=== PATIENT | female | born 1945 | race Caucasian/White ===

== ENCOUNTER → 2016-09-11 | Outpatient (CLI) | payer OTHER ==
[2016-09-11 14:56] LABS: INR 1.7 (0.9-1.1); PROTHROMBIN TIME (PATIENT) 18.1 SECONDS (9.0-12.0)
[2016-09-11 15:44] LABS: BLOOD UREA NITROGEN 23 mg/dl (7-18); BUN/CREATININE RATIO 25.1 (10-20); CALCIUM 9.4 mg/dl (8.5-10.1); CARBON DIOXIDE 26 mmol/L (21-32); CHLORIDE 110 mmol/L (98-107); GLUCOSE 120 mg/dl (70-99); POTASSIUM 4.4 mmol/L (3.5-5.1); SODIUM 143 mmol/L (136-145)
== END | disposition home or self-care (01) ==
LOC: C.LAB1850 12:42
PROVIDERS: ATTEND Nurse Practitioner Adult Health
DX: G47.62 Sleep related leg cramps (principal); I48.91 Unspecified atrial fibrillation

== ENCOUNTER → 2016-09-24 | Outpatient (CLI) | payer OTHER ==
[~2016-09-24] MED LIST: CETI10TA84 PO; CLR10 PO; DILT-115 PO; DILTIAZEM HCL PO; FURO-85 PO; Humalog; LEVO175T3 PO; LOSA50TA6 PO; LVMI; METF1TAB53 PO; METO25TA56 PO; POTA10CA28 PO; PRAV20TA PO; WARF2TAB8 PO
--- NOTE | 2016-09-24 11:51 | DIAGNOSTIC IMAGING REPORT ---
RENAL ULTRASOUND CLINICAL HISTORY: 71-year-old female with history of hypertension. COMPARISON: None. FINDINGS: Right kidney: Normal in echogenicity and size measuring 13.8 cm. No hydronephrosis. Left kidney: Normal in echogenicity and size measuring 13.4 cm. No hydronephrosis. Bladder: No bladder wall thickening. The bilateral ureteral jets were not identified. IMPRESSION: Normal renal ultrasound. No evidence of obstruction. Electronically signed by: Ron Fowler 09/24/2016 11:49 AM Dictated Date/Time: 09/24/2016 11:48 AM
== END | disposition home or self-care (01) ==
LOC: C.ULTR 10:32
PROVIDERS: ATTEND Internal Medicine Nephrology
DX: I10 Essential (primary) hypertension (principal)

== ENCOUNTER → 2016-09-28 | Outpatient (CLI) | payer OTHER ==
[2016-09-28 08:30] LABS: PATIENT HEIGHT 167.6 cm
[2016-09-28 09:30] LABS: BASO % 0.2 %; BASO ABS # 0.02 K/uL (0-0.2); COMPLETE YES; EOS % 1.3 %; HEMATOCRIT 36.4 % (37-47); IG% 0.3 %; LYMPH % 14.2 %; LYMPH ABS # 1.41 K/uL (1.2-3.4); MEAN CELL VOLUME 85.8 fL (80-100); MEAN CORPUSCULAR HEMOGLOBIN 26.7 pg (25-34); MEAN PLATELET VOLUME 10.4 fL (7.4-10.4); MONO % 7.1 %; NEUT % 76.9 %; PLATELET COUNT 195 K/uL (130-400); RED BLOOD COUNT 4.24 M/uL (4.2-5.4); WHITE BLOOD COUNT 9.96 K/uL (4.8-10.8)
[2016-09-28 09:39] LABS: URINE APPEARANCE CLEAR (CLEAR); URINE BILIRUBIN NEG (NEG); URINE COLOR YELLOW; URINE EPITHELIAL CELL AUTO >30 /lpf (0-5); URINE NITRITE NEG (NEG); URINE PH 5.5 (4.5-7.5); URINE SPECIFIC GRAVITY 1.016 (1.000-1.030); UROBILINOGEN NEG (NEG)
[2016-09-28 09:44] LABS: MANUAL MICROSCOPIC REQUIRED? NO; REVIEW REQ? YES
[2016-09-28 09:50] LABS: BUN/CREATININE RATIO 29.2 (10-20); CALCIUM 8.9 mg/dl (8.5-10.1); CREATININE 0.91 mg/dl (0.60-1.20); MAGNESIUM 1.9 mg/dl (1.8-2.4); POTASSIUM 4.3 mmol/L (3.5-5.1)
[2016-09-28 09:58] LABS: ALB/GLOB RATIO 0.9 (0.9-2); CHOLESTEROL/HDL RATIO 2.7; THYROID STIMULATING HORMONE 1.1 uIu/ml (0.300-4.500); URIC ACID 8.4 mg/dl (2.6-7.2)
[2016-09-28 10:05] LABS: URINE TOTAL PROTEIN 6.1 mg/dl (0-11.9)
[2016-09-28 10:27] LABS: URINE PROTIEN/CREAT RATIO 0.1 (0-0.2); URINE TOTAL PROTEIN 9.1 mg/dl (0-11.9)
[2016-09-28 10:54] LABS: CREATININE 0.91 mg/dl (0.6-1.2); URINE TOTAL PROTEIN CALC 125.1 mg/24 hr (0-149.1)
--- NOTE | 2016-10-04 13:17 | CODING QUERY MEDICAL NECESSITY ---
SUPPORTING DIAGNOSIS NEEDED A supporting diagnosis is required for the test/procedure performed on this patient in order for us to be reimbursed by the patient's insurance. Please provide a supporting diagnosis for the following test/procedure listed below next to the test name along with your signature. *If there is no additional diagnosis for this patient that would support the following test/procedure please document that below next to the test/procedure. Test(s)/Procedure(s) that require a supporting diagnosis: * VITAMIN D, 25-HYDROXY DIAGNOSIS: Provider Signature: Date: Thank you Diana Delgado [employer] Once completed, please kindly fax back to [phone] For questions please call [phone]
== END | disposition home or self-care (01) ==
LOC: C.LAB1850 08:16
PROVIDERS: ATTEND Internal Medicine Cardiovascular Disease
DX: I11.0 Hypertensive heart disease with heart failure (principal); I35.0 Nonrheumatic aortic (valve) stenosis; R06.09 Other forms of dyspnea; I50.32 Chronic diastolic (congestive) heart failure; E55.9 Vitamin D deficiency, unspecified; I48.91 Unspecified atrial fibrillation

== ENCOUNTER → 2016-10-15 | Outpatient (CLI) | payer OTHER ==
[2016-10-15 12:32] LABS: ESTIMATED AVERAGE GLUCOSE 189 mg/dl; HA1C FLAG Normal (Normal)
== END | disposition home or self-care (01) ==
LOC: C.LAB1850 11:27
PROVIDERS: ATTEND Nurse Practitioner Adult Health
DX: E11.9 Type 2 diabetes mellitus without complications (principal); I48.91 Unspecified atrial fibrillation

== ENCOUNTER → 2016-10-16 | Outpatient (CLI) | payer OTHER ==
--- NOTE | 2016-10-16 13:09 | MAMMOGRAPHY REPORT ---
BILATERAL DIGITAL SCREENING MAMMOGRAM WITH CAD: 10/16/2016 CLINICAL HISTORY: Routine screening. TECHNIQUE: Bilateral CC, MLO, repeat right MLO and bilateral CC views with nipples in profile were o btained. Current study was also evaluated with a Computer Aided Detection (CAD) system. COMPARISON: Comparison is made to exams dated: 06/10/2015 mammogram, 04/16/2014 mammogram, 04/06/2013 m ammogram, and 05/03/2011 mammogram. BREAST COMPOSITION: There are scattered areas of fibroglandular density in both breasts. FINDINGS: There are stable circumscribed masses in both breasts. Benign-appearing coarse calcificat ions bilaterally. A metallic insurance adjuster projects over the left 9:00 breast. No suspicious spic ulated or irregular mass, architectural distortion or cluster of new, suspicious microcalcifications is seen. IMPRESSION: ACR BI-RADS CATEGORY 1: NEGATIVE There is no mammographic evidence of malignancy. A 1 year screening mammogram is recommended. The pa tient will receive written notification of the results. Approximately 10% of breast cancers are not detected with mammography. A negative mammographic report should not delay biopsy if a clinically suggestive mass is present. Bhumika Velazquez M.D. ay/:10/16/2016 12:10:29 Soil Science Professor: Mayra SAMS(Zhao)(Jenni), [facility] letter sent: Normal 1/2 BI-RADS Code: ACR BI-RADS Category 1: Negative
== END | disposition home or self-care (01) ==
LOC: C.MAMM 11:02
PROVIDERS: ATTEND Nurse Practitioner Adult Health
DX: Z12.31 Encounter for screening mammogram for malignant neoplasm of breast (principal)

== ENCOUNTER → 2016-10-29 | Outpatient (CLI) | payer OTHER ==
[2016-10-29 12:28] LABS: INR 1.5 (0.9-1.1)
[2016-10-29 12:39] LABS: MEAN CELL VOLUME 85.1 fL (80-100); MEAN CORPUSCULAR HEMOGLOBIN 26.9 pg (25-34); MEAN CORPUSCULAR HGB CONC 31.6 g/dl (32-36); MEAN PLATELET VOLUME 10.4 fL (7.4-10.4); PLATELET COUNT 206 K/uL (130-400); RED BLOOD COUNT 4.35 M/uL (4.2-5.4); WHITE BLOOD COUNT 6.95 K/uL (4.8-10.8)
[2016-10-29 12:58] LABS: BLOOD UREA NITROGEN 25 mg/dl (7-18); BUN/CREATININE RATIO 25.9 (10-20); CALCIUM 9.4 mg/dl (8.5-10.1); CARBON DIOXIDE 28 mmol/L (21-32); CHLORIDE 107 mmol/L (98-107); CREATININE 0.97 mg/dl (0.60-1.20); GLUCOSE 173 mg/dl (70-99); POTASSIUM 4.1 mmol/L (3.5-5.1); SODIUM 142 mmol/L (136-145)
== END | disposition home or self-care (01) ==
LOC: C.LAB1850 11:22
PROVIDERS: ATTEND Internal Medicine Cardiovascular Disease
DX: I10 Essential (primary) hypertension (principal); I35.0 Nonrheumatic aortic (valve) stenosis; I48.92 Unspecified atrial flutter; R06.09 Other forms of dyspnea; I50.32 Chronic diastolic (congestive) heart failure; I34.0 Nonrheumatic mitral (valve) insufficiency

== ENCOUNTER → 2016-10-30 | Day surgery (SDC) | payer OTHER ==
[~2016-10-30] VITALS: Ht 167.6 cm; Wt 125.0 kg
[~2016-10-30] MED LIST changes: +ACETAMINOPHEN 325 MG TAB PO PRN; +FENTANYL CITRATE INJ 50 MCG/1 ML 2 ML VIAL ONE; +HEPARIN SOD (PORCINE) 1000 UNIT/ML 10 ML VIAL ONE; +MIDAZOLAM HCL 1 MG/ML 2ML VIAL ONE; +NITROGLYCERIN/D5W 100MCG/ML 20ML SYR ONE; +NiCARDipine HCL INJ 2.5 MG/ML 10 ML AMP ONE; +ONDANSETRON INJ 2 MG/ML 2 ML VIAL IV PRN; +SODIUM CHLORIDE 0.9% 1000ML 1,000 ML IV SCH; +SODIUM CHLORIDE 0.9% 1000ML 250 ML IV PRN
[2016-10-30 06:55] VITALS: BP 159/84; PULSE 110; TEMP 36.5; O2SAT 95; Ht 167.6 cm; Wt 125.0 kg
--- NOTE | 2016-10-30 07:32 | History & Physical Bridge Note ---
H&P Re-Evaluation Bridge Note: I have examined the patient, reviewed the History & Physical and in the interval since the performance of the History & Physical I have noted the following changes of clinical significance: No changes noted
--- NOTE | 2016-10-30 07:33 | Procedure Note ---
Pre-Mod Sedation Assessment General Date of Moderate Sedation: Oct 30, 2016. Vital Signs: Vital Signs Past 12 Hours Date Time Temp Pulse Resp B/P (MAP) Pulse Ox O2 Delivery O2 Flow Rate FiO2 10/30/16 06:55 36.5 110 20 159/84 95 Room Air Review Cardiovascular: regular rate, rhythm, + systolic murmur Abdomen: soft Lungs: lungs clear Pre-Sedation Airway Assessment Oral Cavity: WNL Short Thick Neck: No Hx of Sleep Apnea: No Smoking Status: Never Smoker Procedure Planning Contraindications-for Mod Sed: None Yes Notes The planned sedation has been discussed with the patient and consent obtained. I have identified the patient, determined the appropriateness of sedation and have assessed the patient immediately prior to the procedure. All medicine(s) and interventions are by my order.
[2016-10-30 07:45] VITALS: BP 154/90; PULSE 75; O2SAT 95
[2016-10-30 07:50] VITALS: BP 126/66; PULSE 75; O2SAT 95
[2016-10-30 07:55] VITALS: BP 120/66; PULSE 82; O2SAT 95
[2016-10-30 08:00] VITALS: BP 112/56; PULSE 81; O2SAT 95
--- NOTE | 2016-10-30 08:16 | Procedure Note ---
Post-Mod Sedation Assessment General Date of Moderate Sedation Oct 30, 2016. Vital Signs: Vital Signs Past 12 Hours Date Time Temp Pulse Resp B/P (MAP) Pulse Ox O2 Delivery O2 Flow Rate FiO2 10/30/16 08:00 81 16 112/56 95 Nasal Cannula 3 10/30/16 07:55 82 16 120/66 95 Nasal Cannula 3 10/30/16 07:50 75 16 126/66 95 Nasal Cannula 3 10/30/16 07:45 75 16 154/90 95 Room Air 10/30/16 06:55 36.5 110 20 159/84 95 Room Air Review - Discharge Criteria Vital Signs Stable: Yes Alert/Oriented/Conversant: Yes Returned to Baseline Mental St: Yes Nausea Absent/Minimal: Yes Pain/Discomfort/Absent/Minimal: Yes Normal/Baseline Respirations: Yes Active Bleeding?: No
--- NOTE | 2016-10-30 08:20 | Cardiology Procedure Brief Nt ---
Preliminary Cardiology Note Procedure Date Oct 30, 2016. Pre-Procedure Diagnosis Aortic stenosis Post-Procedure Diagnosis Aortic stenosis Procedure(s) Performed ASHLEY Grades 9 12 Tutor Paul Lipstick Molder(s) Cristal Estimated Blood Loss none Preliminary Findings Prelim report: Normal LV systolic function. Aortic valve appears severely stenotic (unable to obtain velocities). Mild to moderate MR. Recommendations Cardiac cath to follow. Specimens none Complication(s) None Disposition awaiting cath
--- NOTE | 2016-10-30 09:36 | Procedure Note ---
Pre-Mod Sedation Assessment General Date of Moderate Sedation: Oct 30, 2016. Vital Signs: Vital Signs Past 12 Hours Date Time Temp Pulse Resp B/P (MAP) Pulse Ox O2 Delivery O2 Flow Rate FiO2 10/30/16 08:45 73 16 100/50 (67) 93 Room Air 10/30/16 08:30 81 16 100/55 (70) 93 Room Air 10/30/16 08:15 81 16 102/55 (71) 93 Room Air 10/30/16 08:00 80 16 100/56 (71) 93 Room Air 10/30/16 08:00 81 16 112/56 95 Nasal Cannula 3 10/30/16 07:55 82 16 120/66 95 Nasal Cannula 3 10/30/16 07:50 75 16 126/66 95 Nasal Cannula 3 10/30/16 07:45 75 16 154/90 95 Room Air 10/30/16 06:55 36.5 110 20 159/84 95 Room Air Review Cardiovascular: regular rate, rhythm, + systolic murmur Abdomen: soft Lungs: lungs clear Pre-Sedation Airway Assessment Oral Cavity: WNL Short Thick Neck: No Hx of Sleep Apnea: No Smoking Status: Never Smoker Procedure Planning Contraindications-for Mod Sed: None Yes Notes The planned sedation has been discussed with the patient and consent obtained. I have identified the patient, determined the appropriateness of sedation and have assessed the patient immediately prior to the procedure. All medicine(s) and interventions are by my order.
[2016-10-30 10:17] LABS: ISTAT ARTERIAL BLOOD GAS HCO3 23 meq/L (19-24); ISTAT ARTERIAL BLOOD GAS PCO2 39 mmHg (35-46); ISTAT ARTERIAL BLOOD GAS PO2 56 mmHg (80-95); ISTAT ARTERIAL BLOOD GAS pH 7.38 (7.35-7.45); ISTAT CARBON DIOXIDE 24 mEq/l (24-31)
[2016-10-30 10:17] LABS: ISTAT ARTERIAL BLOOD GAS HCO3 25 meq/L (19-24); ISTAT ARTERIAL BLOOD GAS PCO2 43 mmHg (35-46); ISTAT ARTERIAL BLOOD GAS PO2 33 mmHg (80-95); ISTAT ARTERIAL BLOOD GAS pH 7.37 (7.35-7.45); ISTAT CARBON DIOXIDE 26 mEq/l (24-31)
[2016-10-30 10:17] LABS: ISTAT ARTERIAL BLOOD GAS HCO3 25 meq/L (19-24); ISTAT ARTERIAL BLOOD GAS PCO2 43 mmHg (35-46); ISTAT ARTERIAL BLOOD GAS PO2 35 mmHg (80-95); ISTAT ARTERIAL BLOOD GAS pH 7.37 (7.35-7.45); ISTAT CARBON DIOXIDE 26 mEq/l (24-31)
--- NOTE | 2016-10-30 10:37 | Procedure Note ---
Post-Mod Sedation Assessment General Date of Moderate Sedation Oct 30, 2016. Vital Signs: Vital Signs Past 12 Hours Date Time Temp Pulse Resp B/P (MAP) Pulse Ox O2 Delivery O2 Flow Rate FiO2 10/30/16 08:45 73 16 100/50 (67) 93 Room Air 10/30/16 08:30 81 16 100/55 (70) 93 Room Air 10/30/16 08:15 81 16 102/55 (71) 93 Room Air 10/30/16 08:00 80 16 100/56 (71) 93 Room Air 10/30/16 08:00 81 16 112/56 95 Nasal Cannula 3 10/30/16 07:55 82 16 120/66 95 Nasal Cannula 3 10/30/16 07:50 75 16 126/66 95 Nasal Cannula 3 10/30/16 07:45 75 16 154/90 95 Room Air 10/30/16 06:55 36.5 110 20 159/84 95 Room Air Review - Discharge Criteria Vital Signs Stable: Yes Alert/Oriented/Conversant: Yes Returned to Baseline Mental St: Yes Nausea Absent/Minimal: Yes Pain/Discomfort/Absent/Minimal: Yes Normal/Baseline Respirations: Yes Active Bleeding?: No
--- NOTE | 2016-10-30 11:17 | Cardiac Catheterization ---
Procedure Note Procedure Date Oct 30, 2016. Pre-Procedure Diagnosis Valvular Disease AUC Score 7 Post-Procedure Diagnosis Moderate CAD, Elevated Intracardiac Pressures Procedure(s) Performed Coronary Angiography, Right Heart Cath Block Feeder Dr. Miller User Experience Team Lead(s) John Estimated Blood Loss < 25 ml Medication(s) Fentanyl, Heparin, Nicardipine, Versed, Lidocaine 1% Summary of Findings Coronary angiography: 1. Left main coronary artery: The LMCA is short but no significant CAD noted angiographically. 2. Left anterior descending: The LAD is large caliber and extends to the apex. Proximal LAD 50-60%. No other significant CAD within the LAD. Small D1, D2, and D3 vessels without significant CAD noted. 3. Circumflex: The circumflex is codominant. Proximal circumflex 20%. Large OM1, OM2 with lateral branches, circumflex PDA, and circumflex PL without significant CAD angiographically. 4. Right coronary artery: The RCA is large and codominant. Luminal irregularities in the proximal, mid, and distal segments. No significant CAD within the RCA or the RCA PDA. Right heart catheterization: 1. Pulmonary capillary wedge pressure was elevated. V-wave 45 with a mean pressure of 30 mmHg. 2. Moderate pulmonary hypertension. 55/28 with a mean pressure of 37 mmHg. 3. RV pressure 57/12 with RV EDP of 20 mmHg. 4. Elevated right atrial pressure. A-wave 22; V-wave 23; mean pressure 18mmHg. 5. Cardiac output via thermodilution was 7 L/min with a cardiac index of 3 L/min /m2. 6. PVR 1 Wood units. Procedural notes: 1. There was no attempt to cross the aortic valve due to documented severe aortic stenosis. 2. Selective coronary angiography of the RCA was difficult due to significant movement of the diagnostic catheters from the aortic jet. Images were performed with AR2 5 [place] catheter. Sedation start time 9:40 a.m. Sedation end time 10:35 a.m. Impression: 1. Moderate CAD involving the proximal LAD. 2. Documented severe aortic stenosis by echocardiogram. 3. Moderate pulmonary hypertension, likely due to elevated left-sided filling pressures. 4. Elevated filling pressures. 5. Normal cardiac output via thermodilution. Plan: 1. Continue diuretics. 2. Referral for aortic valve replacement evaluation. 3. Continue medical therapy for CAD. Hemodynamics Rest Ao: 103/58 Final Ao: 117/66 LV: n/a Recommendations valve replacement Specimens None Radiation Exposure (mGy) 4414 mGy. Fluoro time 19 min. Contrast (mls) 140 ml Procedural Complication(s) None Disposition Bsa Officer Holding/Recovery ACC Data Cardiac Status Clinical evaluation leading to the procedure CAD Presntation: No Sxs, no angina Anginal Classification: No symptoms Heart Failure: NYHA Class: CCS III Cardiogenic Shock w/in 24Hrs: No Cardiac Arrest w/in 24Hrs: No Imaging studies past 6 months: Yes (echo) Stress studies past 6 months: No Standard Exercise Stress Test: No Stress Echocardiogram: No Stress Testing w/SPECT MPI: No Cardiac CTA: No Coronary Anatomy Dominant: Co-dominant Left Main (% Stenosis): Normal LAD (% Stenosis): Proximal (60%) D1 (% Stenosis): Normal D2 (% Stenosis): Normal D3 (% Stenosis): Normal Circumflex (% Stenosis): Proximal (20%) OM1 (% Stenosis): Normal OM2 (% Stenosis): Normal L PL1 (% Stenosis): Normal L PDA (% Stenosis): Normal RCA (% Stenosis): Normal R PDA (% Stenosis): Normal Left Ventricular Angiography EF (%): n/a Diagnostic Physician's Name: Joel Miller MD Status: Elective Closure Device Percutaneous Entry Location: Radial Closure Device: Radial Band Recommendations: valve replacement
--- NOTE | 2016-10-30 12:59 | Discharge Instructions ---
Discharge Instructions Date of Service Oct 30, 2016. Visit Reason for Visit: Aortic Stenosis Discharge Discharge Diagnosis / Problem: Non-obstructive coronary artery disease. Aortic stenosis. Discharge Goals Goal(s): Diagnostic testing Medications Restart Stopped Medication(s): Resume Metformin in 1 day. Resume coumadin today. Activity Recommendations Activity Limitations: per Instructions/Follow-up section Anesthesia . Post Anesthesia Instructions: If you have had General Anesthesia or IV Sedation: * Do not drive today. * Resume driving when surgeon permits. * Do not make important decisions or sign legal documents today. * Call surgeon for: 1. Temperature elevations greater than 101 degrees F. 2. Uncontrollable pain. 3. Excessive bleeding. 4. Persistent nausea and vomiting. 5. Medication intolerance (nausea, vomiting or rash). * For nausea and vomiting use only clear liquids such as: tea, soda, bouillon until nausea subsides, then gradually increase diet as tolerated. * If you have any concerns or questions, call your surgeon's office. If physician is unavailable and it is an emergency, call 911 or go to the nearest emergency room. . Instructions / Follow-Up Instructions / Follow-Up Follow up: 1. CT surgery appointment at [facility] with Dr. Aldridge ([phone]). Take echo and cath images with you. 2. Follow up with Dr. Miller after your heart procedure. 3. Follow up later this week for heart failure evaluation with labs to be done or Saturday morning. Diet Recommendations Recommended Home Diet: resume previous diet, low sodium Pending Studies Studies pending at discharge: yes List of pending studies: 1. PFTs 2. Carotid Duplex Medical Emergencies . Who to Call and When: Medical Emergencies: If at any time you feel your situation is an emergency, please call 911 immediately. . Non-Emergent Contact Non-Emergency issues call your: Client Engagement Specialist . . "Provider Documentation" section prepared by Joel Stevens. .
[2016-10-30 13:00] VITALS: BP 102/66; PULSE 76; O2SAT 94
--- NOTE | 2016-10-30 18:46 | TEE ---
*NOTICE TO RECEIVING DEMOCRAT AGENCY This information is strictly Confidential and protected under [place] law. [place] law prohibits you from making any further disclosure of this information unless further disclosure is expressly permitted by the written consent of the person to whom it pertains or is authorized by law. A general authorization for the release of medical or other information is not sufficient for this purpose. Hospital accepts no responsibility if the information is made available to any other person, INCLUDING THE PATIENT. Interpretation Summary * Name: OTILIO SUNSHINE Study Date: 10/30/2016 07:25 AM BP: 154/90 mmHg * Patient Location: Cardiac Chief Growth Officer Holding area HR: 80 * : 1945 (M/d/yyyy) Gender: Female Height: 56 in * Age: 71 yrs Ethnicity: [place] Weight: 276 lb * Ordering Physician: Joel Miller MD * Referring Physician: Joel Miller MD * Performed By: Alexandra Bee RCS * * Reason For Study: Aortic Stenosis * BSA: 2.0 m2 * -- Conclusions -- * ASHLEY: * 1. Normal left ventricular size with hyperdynamic systolic function. EF 65-70%. No regional wall motion abnormalities. Severe concentric left ventricular hypertrophy. * 2. The left atrium is moderately dilated. * 3. The right atrium is mildly dilated. * 4. Sclerotic aortic valve with severely reduced excursion during systole. (Velocities were unable to be obtained.) * 5. There is moderate mitral regurgitation. * 6. There is mild to moderate tricuspid regurgitation. * 7. Moderate pulmonary hypertension. Estimated right ventricular systolic pressure 56 mmHg. * 8. Patient tolerated procedure well without known complication. Procedure Details * ASHLEY Probe #1 utilized for procedure. * The study was performed in Cardiac Catheterization Lab. * Time out was conducted by the physician, nurse, and dialysis tech with positive identification of patient and procedure. * Informed consent for Transesophageal Echocardiogram was obtained prior to the procedure. * An intravenous line was placed. A topical anesthetic agent was used for oropharangeal anesthesia. A bite block was inserted. * The patient's vital signs, including blood pressure, heart rate, pulse oximetry and cardiac rhythm were monitored throughout the procedure . * Fentanyl 50 mcg was administered for procedural sedation. * Midazolam 4 mg administered for sedation. * Timeout time - 0740 Probe in time/sedation start time: 0745 Sedation and time: 0800 * The transesophageal probe was passed without difficulty. * The usual views were obtained; basal, mid-esophageal, transgastric and aortic views. * The patient tolerated the procedure well without evidence of orophangeal or esophageal trauma. * A 2D transesophageal echocardiogram was performed. * A 2D transesophageal echocardiogram with color flow Doppler was performed. * A 2D transesophageal echocardiogram with Doppler and color flow Doppler was performed. Left Ventricle * Normal left ventricular size with hyperdynamic systolic function. EF 65-70%. No regional wall motion abnormalities. Severe concentric left ventricular hypertrophy. Right Ventricle * The right ventricle is normal in size and function. Atria * The left atrium is moderately dilated. * No thrombus is detected in the left atrial appendage. * The right atrium is mildly dilated. * No ASD or PFO noted via color Doppler or 2-D imaging. Mitral Valve * There is mild mitral annular calcification. * Blunted pulmonary venous flow pattern. * There is no mitral valve stenosis. * There is moderate mitral regurgitation. Tricuspid Valve * The tricuspid valve is not well visualized, but is grossly normal. * There is no tricuspid stenosis. * There is mild to moderate tricuspid regurgitation. Aortic Valve * Sclerotic aortic valve with severely reduced excursion during systole. (Velocities were unable to be obtained.) * Trace aortic regurgitation. Pulmonic Valve * The pulmonary valve is inadequately visualized, but the Doppler data is adequate for interpretation. * There is no significant pulmonary regurgitation. Great Vessels * The aortic root is normal size. * Mild atherosclerotic disease noted within thoracic descending aorta. * IVC normal in size. Pericardium * There is no pericardial effusion. MMode 2D Measurements and Calculations Ao root diam 3.1 cm Ao root area 7.5 cm\S\2 LVOT diam 2.0 cm LVOT area 3.2 cm\S\2 Doppler Measurements and Calculations MV E max rafaela 165.2 cm/sec MV dec time 0.20 sec TR max rafaela 365.3 cm/sec RVSP(TR) 56.4 mmHg RAP systole 3.0 mmHg
== END | disposition home or self-care (01) ==
LOC: C.CATH 06:36 → EDSTATUS 07:00
PROVIDERS: ATTEND Internal Medicine Cardiovascular Disease
DX: I48.91 Unspecified atrial fibrillation (principal); I25.10 Atherosclerotic heart disease of native coronary artery without angina pectoris; I35.0 Nonrheumatic aortic (valve) stenosis; I27.2 Other secondary pulmonary hypertension; I48.92 Unspecified atrial flutter; R06.09 Other forms of dyspnea; I34.0 Nonrheumatic mitral (valve) insufficiency; I10 Essential (primary) hypertension; I50.32 Chronic diastolic (congestive) heart failure; E78.5 Hyperlipidemia, unspecified; Z87.442 Personal history of urinary calculi; E78.00 Pure hypercholesterolemia, unspecified; E03.9 Hypothyroidism, unspecified; Z85.820 Personal history of malignant melanoma of skin; E66.01 Morbid (severe) obesity due to excess calories; E11.9 Type 2 diabetes mellitus without complications; Z90.710 Acquired absence of both cervix and uterus; Z90.89 Acquired absence of other organs; Z82.49 Family history of ischemic heart disease and other diseases of the circulatory system; Z83.3 Family history of diabetes mellitus; Z84.1 Family history of disorders of kidney and ureter; Z80.8 Family history of malignant neoplasm of other organs or systems; Z79.4 Long term (current) use of insulin; Z79.84 Long term (current) use of oral hypoglycemic drugs

== ENCOUNTER → 2016-11-02 | Outpatient (CLI) | payer OTHER ==
[~2016-11-02] MED LIST changes: -ACETAMINOPHEN 325 MG TAB PO PRN; -FENTANYL CITRATE INJ 50 MCG/1 ML 2 ML VIAL ONE; -HEPARIN SOD (PORCINE) 1000 UNIT/ML 10 ML VIAL ONE; -MIDAZOLAM HCL 1 MG/ML 2ML VIAL ONE; -NITROGLYCERIN/D5W 100MCG/ML 20ML SYR ONE; -NiCARDipine HCL INJ 2.5 MG/ML 10 ML AMP ONE; -ONDANSETRON INJ 2 MG/ML 2 ML VIAL IV PRN; -SODIUM CHLORIDE 0.9% 1000ML 1,000 ML IV SCH; -SODIUM CHLORIDE 0.9% 1000ML 250 ML IV PRN
--- NOTE | 2016-11-02 10:21 | DIAGNOSTIC IMAGING REPORT ---
CHEST 2 VIEWS ROUTINE CLINICAL HISTORY: I10 [id number] Aortic [id number] Atrial [id number] COMPARISON STUDY: No previous studies for comparison. FINDINGS: Mild cardia megaly. Mild prominence of pulmonary vasculature. Diaphragms are smooth. Lungs are clear. IMPRESSION: Mild cardia megaly. Mild prominence of pulmonary vasculature. The above report was generated using voice recognition software. It may contain grammatical, syntax or spelling errors. Electronically signed by: Damien Borja M.D. 11/02/2016 10:20 AM Dictated Date/Time: 11/02/2016 10:20 AM
[2016-11-02 11:21] LABS: BLOOD UREA NITROGEN 26 mg/dl (7-18); BUN/CREATININE RATIO 23.3 (10-20); CALCIUM 9.1 mg/dl (8.5-10.1); CARBON DIOXIDE 31 mmol/L (21-32); CHLORIDE 107 mmol/L (98-107); GLUCOSE 220 mg/dl (70-99); SODIUM 140 mmol/L (136-145)
== END | disposition home or self-care (01) ==
LOC: C.RAD1850 09:59
PROVIDERS: ATTEND Internal Medicine Cardiovascular Disease
DX: I34.0 Nonrheumatic mitral (valve) insufficiency (principal); I35.0 Nonrheumatic aortic (valve) stenosis; I48.92 Unspecified atrial flutter; I50.32 Chronic diastolic (congestive) heart failure; R06.09 Other forms of dyspnea; I11.0 Hypertensive heart disease with heart failure

== ENCOUNTER → 2017-02-01 | Outpatient (CLI) | payer OTHER ==
[2017-02-01 17:39] LABS: HEMATOCRIT 36.2 % (37-47); MEAN CELL VOLUME 84.2 fL (80-100); MEAN CORPUSCULAR HEMOGLOBIN 27.2 pg (25-34); MEAN CORPUSCULAR HGB CONC 32.3 g/dl (32-36); PLATELET COUNT 240 K/uL (130-400); WHITE BLOOD COUNT 8.61 K/uL (4.8-10.8)
[2017-02-01 17:59] LABS: ALT/SGPT 20 U/L (12-78); BLOOD UREA NITROGEN 24 mg/dl (7-18); BUN/CREATININE RATIO 23.1 (10-20); CALCIUM 9.4 mg/dl (8.5-10.1); CARBON DIOXIDE 27 mmol/L (21-32); CHLORIDE 101 mmol/L (98-107); CREATININE 1.02 mg/dl (0.60-1.20); GLUCOSE 136 mg/dl (70-99); POTASSIUM 3.6 mmol/L (3.5-5.1); SODIUM 138 mmol/L (136-145)
[2017-02-01 18:10] LABS: ALB/GLOB RATIO 0.8 (0.9-2); ALKALINE PHOSPHATASE 233 U/L (45-117); AST/SGOT 16 U/L (15-37); THYROID STIMULATING HORMONE 0.452 uIu/ml (0.300-4.500)
== END | disposition home or self-care (01) ==
LOC: C.LAB1850 17:09
PROVIDERS: ATTEND Internal Medicine Cardiovascular Disease
DX: N20.0 Calculus of kidney (principal); I11.0 Hypertensive heart disease with heart failure; I35.0 Nonrheumatic aortic (valve) stenosis; I27.20 Pulmonary hypertension, unspecified; N18.2 Chronic kidney disease, stage 2 (mild); I25.10 Atherosclerotic heart disease of native coronary artery without angina pectoris; I48.92 Unspecified atrial flutter; I50.32 Chronic diastolic (congestive) heart failure

== ENCOUNTER → 2017-02-14 | Outpatient (CLI) | payer OTHER ==
[2017-02-14 12:28] LABS: URINE APPEARANCE CLEAR (CLEAR); URINE BILIRUBIN NEG (NEG); URINE COLOR YELLOW; URINE NITRITE NEG (NEG); URINE SPECIFIC GRAVITY 1.014 (1.000-1.030); UROBILINOGEN NEG (NEG)
[2017-02-14 12:34] LABS: MANUAL MICROSCOPIC REQUIRED? NO; REVIEW REQ? NO
[2017-02-14 12:36] LABS: CREATININE, URINE 57.1 mg/dl; URINE PROTIEN/CREAT RATIO 0.1 (0-0.2); URINE TOTAL PROTEIN 5.6 mg/dl (0-11.9)
== END | disposition home or self-care (01) ==
LOC: C.LAB1850 10:24
PROVIDERS: ATTEND Internal Medicine Nephrology
DX: N20.0 Calculus of kidney (principal); I10 Essential (primary) hypertension; I35.0 Nonrheumatic aortic (valve) stenosis; I27.20 Pulmonary hypertension, unspecified; N18.2 Chronic kidney disease, stage 2 (mild)

== ENCOUNTER → 2017-03-26 | Outpatient (CLI) | payer OTHER ==
[~2017-03-26] MED LIST changes: +ACET-1256 PO; +ASPI81TA28 PO; -DILTIAZEM HCL PO; +ERGO500037 PO; -Humalog; +Humalog SQ; -LOSA50TA6 PO; -LVMI; +LVMI SQ
[2017-03-27 06:47] LABS: HEMOGLOBIN A1C 7.9 % (4.5-5.6)
== END | disposition home or self-care (01) ==
LOC: C.LAB1850 15:16
PROVIDERS: ATTEND Nurse Practitioner Adult Health
DX: E11.65 Type 2 diabetes mellitus with hyperglycemia (principal); Z79.4 Long term (current) use of insulin

== ENCOUNTER 2018-11-24 05:06 | Inpatient (IN) ==
--- NOTE | 2018-10-27 08:10 | Anesthesiology Consultation ---
Date of Service October 27, 2018 Assessment & Plan (1) Encounter for pre-operative examination: *PATIENT GOES BY "ARNIE"* Cardiology clearance (Bhumika Norman PA-C) 10/29 = She is currently stable and asymptomatic from a cardiovascular standpoint with no anginal symptoms occurring at >4 METS of activity. She appears euvolemic on examination today and well compensated from a CHF standpoint. Her bioprosthetic aortic valve is functioning well on examination. Her heart rate and blood pressure are well controlled. Given this information, the patient is at an acceptable risk to proceed with upcoming surgery without any additional cardiovascular testing or intervention. She may hold her warfarin for 5 days prior to surgery and resume once safe from a bleeding standpoint. CHECK BSG AM DOS CHECK PT/INR/PTT AM DOS Chart Review Chart Review: Acceptable Risk for Surgery and Patient seen in Pre Admission Testing Teaching & Discussion Instructed NPO after midnight before surgery, except medications with 15 cc of water. Medication instructions provided according to the PAT guidelines. History Surgery Operation Date: 11/24/18 07:00 Proposed Procedures p Laparoscopic Umbilical Hernia Repair - Keith Chapmna MD, FACS Height/Weight Height: 5 ft 6 in Weight: 124.2 kg Allergies Allergy/AdvReac Type Severity Reaction Status Date / Time Sulfa (Sulfonamide Allergy Severe ANAPHYLAXIS Verified 10/29/18 11:28 Antibiotics) Medications Home Medications Medication Instructions Recorded Confirmed Last Taken insulin U- 100 regular human 100 3 - 4 units SUBCUT DAILY #3 ml 08/22/18 10/29/18 Unknown unit/mL injection solution metoprolol tartrate 50 mg tablet 25 mg PO BID #180 tab 08/22/18 10/29/18 Unknown aspirin 81 mg tablet,delayed 81 mg PO QPM #0 10/19/18 10/29/18 Unknown release diltiazem 60 mg tablet 60 mg PO HS #0 10/19/18 10/29/18 Unknown diltiazem ER 240 mg capsule,24 240 mg PO QAM #0 cap 10/19/18 10/29/18 Unknown hr,extended release ergocalciferol (vitamin D2) 50,000 50,000 unit PO WK 28 Days #4 cap 10/19/18 10/29/18 Unknown unit capsule furosemide 20 mg tablet 40 mg PO BID 90 Days #360 tab 10/19/18 10/29/18 Unknown insulin NPH isophane U- 100 human 40 units SUBCUT QPM #1 ml 10/19/18 10/29/18 Unknown 100 unit/mL subcutaneous suspension levothyroxine 175 mcg tablet 175 mcg PO QAM 30 Days #30 tab 10/19/18 10/29/18 Unknown metformin ER 1,000 mg 1,000 mg PO BIDM #0 tab 10/19/18 10/29/18 Unknown tablet,extended release 24hr potassium citrate ER 10 mEq (1,080 1,080 mg PO BID #60 tab 10/19/18 10/29/18 Unknown mg) tablet,extended release pravastatin 80 mg tablet 80 mg PO HS 90 Days #90 tab 10/19/18 10/29/18 Unknown azelastine 1 sprays INTNAS DAILY PRN 10/22/18 10/29/18 Unknown cetirizine [Zyrtec] 10 mg PO QAM 10/22/18 10/29/18 Unknown warfarin 2 mg tablet 2 mg PO DAILY #90 tab 10/30/18 Unknown Past Medical History Medical History History of loop recorder Implanted AND REMOVED A-fib On Warfarin Atrial flutter Coronary artery disease S/P CABG x 1 with AVR 2016. Diabetic peripheral neuropathy DENIES ATAXIA History of sinusitis Hx of cyst of breast s/p excision Hx of malignant melanoma of skin s/p simple excision Hyperlipemia Hypertension Hypothyroidism Mitral valve regurgitation Seasonal allergies Type 2 diabetes mellitus Vitamin D deficiency Exercise / Class Metabolic Activity II 4-5 Yardwork/Stairs/Walk up hill (No CP/SOB with 10 steps, does grocery shopping, walks daily) Past Family History Family History Mother Family history of diabetes mellitus Grandmother (Maternal) Family history of diabetes mellitus Grandmother (Paternal) Family history of diabetes mellitus Aunt Family history of diabetes mellitus Uncle Family history of diabetes mellitus Father FHx: colon cancer Other FHx: esophageal cancer FHx: heart disease Past Surgical History Surgical History H/O aortic valve replacement 2017 [facility] - BOVINE ALSO HAD CABG X1 VESSEL H/O cardiac catheterization [facility] [place] - PRIOR TO 2017 SURGERY History of carpal tunnel release of both wrists History of partial hysterectomy History of transesophageal echocardiography ([facility]) ? [facility] PRIOR TO SURGERY 2016 Hx of right cataract extraction Hx of tonsillectomy Past Anesthesia History No Hx of Anesthesia Complications and No Family Hx of Anesthesia Complications "Slow to wake up" and confused, but only after CABG, no issues with other surgeries. History of PONV No Hx of PONV and No Hx of Motion Sickness Social History Smoking Status: Never smoker Do You Dip or Chew Tobacco: No Hx Alcohol Use: No Hx Substance Use: No Review of Systems Pt denies any recent chest pain, shortness of breath, palpitations, cough, fever or URI. Physical Exam Vital Signs BP: 135/76 P: 80bpm SPO2: 96% RA T: 98.3 F R: 16 Constitutional + morbidly obese ENMT Mouth: + dental restorations (couple caps on molars); no chipped teeth and no loose teeth Thyromental Distance: > or= 3.5 Finger Breadths (4) Mallampati Class: III Neck + thick neck (very) and + limited neck extension (but pain with full extension) Respiratory normal respiratory effort Auscultation: lungs clear to auscultation bilaterally Cardiovascular Rate/Rhythm: regular rate; + abnormal rhythm (Irreg irreg) Heart Sounds: + murmur (I/ systolic) Vessels: no carotid bruit Extremities: + edema (trace pitting b/l) Testing Laboratory Results 10/27/18 08:22 10/27/18 08:22 Electrocardiogram Date: 10/27/18 Atrial flutter at 70 bpm with variable AV block. Prolonged QT. Compared with EKG of 03/01/2017, aberrant conduction is no longer present. Echocardiogram Date: 02/20/17 EF: 60-65% Normal LV size and systolic function. No regional wall motion normalities. Moderate concentric LVH. Severe left atrial dilation. Bioprosthetic aortic valve with acceptable transvalvular gradients. Mild mitral regurgitation. Normal estimated right ventricular systolic pressure at 35 mmHg. Technically difficult study. Compared to prior study on 10/02/2016, bioprosthetic aortic valve has replaced severe aortic stenosis. Cardiac Catheterization Date: 10/30/16 Impression: 1. Moderate CAD involving the proximal LAD. 2. Documented severe aortic stenosis by echocardiogram. 3. Moderate pulmonary hypertension, likely due to elevated left-sided filling pressures. 4. Elevated filling pressures. 5. Normal cardiac output via thermodilution. Plan: 1. Continue diuretics. 2. Referral for aortic valve replacement evaluation. 3. Continue medical therapy for CAD.
--- NOTE | 2018-10-27 08:10 | PAT Medication Instructions ---
Medication Instructions Date of Service October 27, 2018 Home Medications insulin U- 100 regular human 100 unit/mL injection solution 3 - 4 units SUBCUT DAILY metoprolol tartrate 50 mg tablet 25 mg PO BID aspirin 81 mg tablet,delayed release 81 mg PO QPM diltiazem 60 mg tablet 60 mg PO HS diltiazem ER 240 mg capsule,24 hr,extended release 240 mg PO QAM ergocalciferol (vitamin D2) 50,000 unit capsule 50,000 unit PO WK furosemide 20 mg tablet 40 mg PO BID insulin NPH isophane U- 100 human 100 unit/mL subcutaneous suspension 40 units SUBCUT QPM levothyroxine 175 mcg tablet 175 mcg PO QAM 30 Days metformin ER 1,000 mg tablet,extended release 24hr 1,000 mg PO BIDM potassium citrate ER 10 mEq (1,080 mg) tablet,extended release 1,080 mg PO BID pravastatin 80 mg tablet 80 mg PO HS 90 Days warfarin 2 mg tablet 2 mg PO UD azelastine 1 sprays INTNAS DAILY PRN cetirizine [Zyrtec] 10 mg PO QAM ASK your prescriber and surgeon aspirin 81 mg tablet,delayed release 81 mg PO QPM warfarin 2 mg tablet 2 mg PO UD DO NOT take the morning of surgery insulin U- 100 regular human 100 unit/mL injection solution 3 - 4 units SUBCUT DAILY ergocalciferol (vitamin D2) 50,000 unit capsule 50,000 unit PO WK furosemide 20 mg tablet 40 mg PO BID metformin ER 1,000 mg tablet,extended release 24hr 1,000 mg PO BIDM potassium citrate ER 10 mEq (1,080 mg) tablet,extended release 1,080 mg PO BID cetirizine [Zyrtec] 10 mg PO QAM Take morning of surgery With a small sip of water, OTHERWISE NOTHING TO EAT OR DRINK AFTER MIDNIGHT: metoprolol tartrate 50 mg tablet 25 mg PO BID diltiazem ER 240 mg capsule,24 hr,extended release 240 mg PO QAM levothyroxine 175 mcg tablet 175 mcg PO QAM azelastine 1 sprays INTNAS DAILY PRN (if needed) Take evening before surgery insulin U- 100 regular human 100 unit/mL injection solution 3 - 4 units SUBCUT DAILY metoprolol tartrate 50 mg tablet 25 mg PO BID diltiazem 60 mg tablet 60 mg PO HS furosemide 20 mg tablet 40 mg PO BID insulin NPH isophane U- 100 human 100 unit/mL subcutaneous suspension 40 units SUBCUT QPM metformin ER 1,000 mg tablet,extended release 24hr 1,000 mg PO BIDM potassium citrate ER 10 mEq (1,080 mg) tablet,extended release 1,080 mg PO BID pravastatin 80 mg tablet 80 mg PO HS azelastine 1 sprays INTNAS DAILY PRN (if needed) Other Notes If you have any questions please call us at [phone] or [phone] or [phone] or [phone]
[2018-10-27 10:51] LABS: Basophils # (auto) 0.03 K/uL (0-0.2); Basophils % (auto) 0.4 %; Eosinophils # (auto) 0.16 K/uL (0-0.5); Eosinophils % (auto) 2.4 %; Hematocrit (blood only) 35.8 % (37-47); Hemoglobin 11.6 g/dL (12.0-16.0); Immature Granulocytes # (auto) 0.02 K/uL (0.00-0.02); Immature Granulocytes % (auto) 0.3 %; Lymphocytes # (auto) 1.64 K/uL (1.2-3.4); Lymphocytes % (auto) 24.3 %; Mean Corpuscular Hemoglobin 27.6 pg (25-34); Mean Corpuscular Hgb Conc 32.4 g/dL (32-36); Mean Corpuscular Volume 85.2 fL (80-100); Mean Platelet Volume 10.7 fL (7.4-10.4); Monocytes # (auto) 0.48 K/uL (0.11-0.59); Monocytes % (auto) 7.1 %; Neutrophils # (auto) 4.43 K/uL (1.4-6.5); Neutrophils % (auto) 65.5 %; Platelet Count 187 K/uL (130-400); RDW Coefficient of Variation 14.3 % (11.5-14.5); RDW Standard Deviation 44.4 fL (36.4-46.3); White Blood Count 6.76 K/uL (4.8-10.8)
[2018-10-27 10:58] LABS: BUN Creatinine Ratio 27.3 (10-20); Calcium 9.9 mg/dl (8.5-10.1); Est GFR (African American) 75.6; Est GFR (Non-African American) 65.2; Potassium 4.2 mmol/L (3.5-5.1)
[2018-11-24] MEDS ORDERED: LR 15ML/HR IV SCH (06:00)
[2018-11-24] MEDS ORDERED: CEFAZOLIN 3000MG 65 ML IV SCH (06:00)
[2018-11-24 06:23] LABS: INR 1.5 (0.9-1.1); Partial Thromboplastin Ratio 1.1; Partial Thromboplastin Time 29.1 Seconds (21.0-31.0); Prothrombin Time 14.6 Seconds (9.0-12.0)
[2018-11-24] MEDS ORDERED: LIDOCAINE HCL 1% 20 ML VIAL ONE (06:51)
[2018-11-24] MEDS ORDERED: BUPIVACAINE 0.5 % 5 MG/1 ML MPF 30ML VIAL ONE (06:51)
[2018-11-24] MEDS ORDERED: fentaNYL citrate 100 MCG/2 ML VIAL ONE ×2 (06:53→08:43)
[2018-11-24] MEDS ORDERED: MIDAZOLAM HCL 1 MG/ML 2ML VIAL ONE (06:53)
[2018-11-24] MEDS ORDERED: ONDANSETRON INJ 2 MG/ML 2 ML VIAL IV PRN ×2 (07:41→10:44)
[2018-11-24] MEDS ORDERED: ATROPINE SULFATE 0.1 MG/ML 10ML SYR IV PRN (07:41)
[2018-11-24] MEDS ORDERED: ePHEDrine sulfate 50 MG/ML AMP IV PRN (07:41)
[2018-11-24] MEDS ORDERED: ALBUTEROL 0.083% NEBU SOLN 3 ML VIAL INH PRN (07:44)
[2018-11-24] MEDS ORDERED: NEOSTIGMINE METHYLSULFATE 5 MG/5 ML SYR ONE (08:38)
[2018-11-24] MEDS ORDERED: LIDOCAINE HCL 2% 2 ML VIAL/AMP(20MG/ML) INFIL ONE (08:38)
[2018-11-24] MEDS ORDERED: ROCURONIUM BROMIDE 10 MG/ML 5 ML VIAL ONE (08:38)
[2018-11-24] MEDS ORDERED: ONDANSETRON INJ 2 MG/ML 2 ML VIAL ONE (08:38)
[2018-11-24] MEDS ORDERED: GLYCOPYRROLATE 0.2 MG/ML VIAL ONE (08:38)
[2018-11-24] MEDS ORDERED: PROPOFOL IV EMULSION 10 MG/ML 20 ML VIAL IV ONE (08:38)
[2018-11-24] MEDS ORDERED: ALBUTEROL HFA INHALER 8.5 GM ONE (08:38)
--- NOTE | 2018-11-24 08:47 | Operative Report ---
Post Operative Report Pre & Post Diagnosis Operation Date: 11/24/18 07:00 Pre-Op Diagnosis: Umbilical Hernia; Diabetic Post-Op Diagnosis: Umbilical Hernia; Diabetic Procedure Operation Date: 11/24/18 07:00 Actual Procedures p Laparoscopic Umbilical Hernia Repair(Not Applicable) - Keith Chapman MD, FACS Surgeon Keith Chapman MD, FACS Superintendent Pipelines Maxi Farley Estimated Blood Loss 20 Findings Consistent with Post-Op Diagnosis Specimens none Description of Procedure used 15 cm surgimesh I attest to the content of the Intraoperative Record and any orders documented therein. Any exceptions are noted below.
[2018-11-24] MEDS ORDERED: ACETAMINOPHEN 1000 MG/100 ML IV IV ONE (09:11)
[2018-11-24] MEDS: fentaNYL citrate 100 MCG/2 ML VIAL IV PRN ×2 (09:15→09:22)
[2018-11-24] MEDS ORDERED: HYDROmorphone INJ 2 MG/ML SYR/VIAL IV PRN (09:28)
[2018-11-24] MEDS ORDERED: HYDROmorphone INJ 1 MG/ML SYRINGE ONE (09:28)
--- NOTE | 2018-11-24 10:11 | Anesthesiology Progress Note ---
Date of Service November 24, 2018 Anesthesia Post Procedure Vital Signs Vital Signs: Temp Pulse Pulse Resp BP BP Pulse Ox 11/24/18 10:05 36.7 C 102 H 14 142/61 H 96 11/24/18 09:55 102 H 13 130/63 96 11/24/18 09:45 102 H 14 148/62 H 97 11/24/18 09:35 102 H 23 144/65 H 98 11/24/18 09:25 102 H 18 152/68 H 100 11/24/18 09:15 103 H 14 158/66 H 100 11/24/18 09:05 36.2 C L 102 H 16 171/85 H 94 11/24/18 05:37 36.9 C 80 18 175/77 H 95 Pain Intensity Abdomen: Pain Intensity: 4 Transfer of Care Handoff Completed per policy Notes Mental Status: alert / awake / arousable and participated in evaluation Patient Amnestic to Procedure: Yes Nausea / Vomiting: adequately controlled Pain: adequately controlled Airway Patency, RR, SpO2: stable & adequate BP & HR: stable & adequate Hydration State: stable & adequate Anesthetic Complications: no major complications apparent and Pt Satisfied with anesthetic care
[2018-11-24] MEDS ORDERED: HYDROmorphone INJ 1 MG/ML SYRINGE IV PRN (10:44)
[2018-11-24] MEDS ORDERED: PROMETHAZINE HCL 25 MG in SODIUM CHLORIDE 0.9% 50 ML IV PRN (10:44)
[2018-11-24] MEDS ORDERED: dilTIAZem ER 120 MG CAPCR PO SCH (10:44)
[2018-11-24] MEDS ORDERED: HYDROCODONE/ACETAMOPHEN 5/325MG TAB PO PRN (10:44)
[2018-11-24] MEDS ORDERED: SODIUM CHLORIDE 0.9% 1000ML 1,000 ML IV SCH (10:44)
[2018-11-24] MEDS ORDERED: PROMETHAZINE HCL 12.5 MG in SODIUM CHLORIDE 0.9% 50 ML IV PRN (10:44)
[2018-11-24] MEDS ORDERED: ACETAMINOPHEN 1,000 MG/100 ML VIAL IV ONE (10:44)
--- NOTE | 2018-11-24 10:54 | Operative Report ---
DATE OF OPERATION: 11/24/2018 NAME OF OPERATION: Laparoscopic umbilical hernia repair. PREOPERATIVE DIAGNOSIS: Umbilical hernia. POSTOPERATIVE DIAGNOSIS: Umbilical hernia with multiple defects. STAFF SURGEON: Keith Chapman MD DAYCARE TEACHER: Jose G Farley PA-C. ANESTHESIA: General. DESCRIPTION OF PROCEDURE: The patient was brought in the operating room and placed on the operating table in supine position. Her abdomen was prepped and draped in usual fashion. Pneumatic stockings, orogastric tube were placed. My server assistant helped with prepping, draping, repair of the hernia and closure of the wounds. Initially, incision was made in the left upper quadrant carrying dissection down to the fascia, placing a Veress needle producing pneumoperitoneum. At this point, 11-mm port was placed at this level and then under visualization, the hernia was noted with significant omentum. We required five 5-mm ports, 2 on the left and 3 on the right. These were placed under visualization. The patient ended up having 3 separate defects equaling approximately 7 cm in diameter. The initial ultrasound is at 2.5 cm in diameter with 1 defect. With some difficulty, the omentum was brought down from these defects using both sharp and blunt dissection. We did not have any significant bleeding. The 3 defects measured 7 cm. We chose a 15 cm piece of Surgimesh placed into the abdomen, polypropylene toward the fascia, silicone toward the bowel. It was brought up through a stab incision through the defect, bringing the suture up with the mesh. The mesh was then secured in 2 layers, outer and inner row of absorbable tacks and then it was secured in 4 places 12, 3, 6 and 9 o'clock using #1 Ethibond suture through separate small stab incisions. At this point, the pneumoperitoneum was reduced. All ports were removed. The left upper quadrant fascia closed using interrupted 0 PDS suture, subcutaneous tissue at that level closed using 0 Vicryl suture, then all incisions closed using 5-0 Prolene suture. The patient was transferred to recovery room in stable condition. I attest to the content of the Intraoperative Record and any orders documented therein. Any exception s are noted below.
[2018-11-24] MEDS: CEFAZOLIN 1000MG 1,000 MG/7.5 ML SYR IV SCH ×3 (11:54→23:50)
[2018-11-24] MEDS: METOPROLOL TARTRATE 25 MG TAB PO SCH ×2 (11:54→20:29)
[2018-11-24] MEDS: POTASSIUM CITRATE 10 MEQ TAB PO SCH ×2 (11:54→20:29)
[2018-11-24] MEDS: MAGNESIUM HYDROXIDE SUSP 30 ML UDC PO SCH ×2 (11:55→21:27)
[2018-11-24] MEDS: FUROSEMIDE 20 MG TAB PO SCH ×2 (11:55→18:13)
[2018-11-24] MEDS: DOCUSATE SODIUM/SENNA 50/8.6MG TAB PO SCH ×2 (11:55→18:17)
[2018-11-24] MEDS: LEVOTHYROXINE SODIUM 175 MCG TABLET PO SCH (11:55)
[2018-11-24] MEDS: HYDROmorphone INJ 0.5 MG/0.5 ML SYR IV PRN (11:59)
[2018-11-24] MEDS ORDERED: DEXTROSE 50% 50 ML SYRINGE IV PRN (12:16)
[2018-11-24] MEDS ORDERED: CARBOHYDRATES FOR HYPOGLYCEMIA PO PRN (12:16)
[2018-11-24] MEDS ORDERED: GLUCOSE 10 TABS/TUBE PO PRN (12:16)
[2018-11-24] MEDS ORDERED: GLUCAGON FOR INJ 1 MG VIAL SQ PRN (12:16)
[2018-11-24] MEDS ORDERED: GLUCOSE 40% GEL 15 GM TUBE PO PRN (12:16)
[2018-11-24] MEDS ORDERED: PHARMACY GLYCEMIC MGMT CONSULT PRN (12:22)
--- NOTE | 2018-11-24 12:39 | History & Physical Report ---
Date of Service November 24, 2018 Assessment & Plan (1) History of umbilical hernia: - POD #0 - Elective, performed by Dr. Chapman - Continue pain managment, bowel regimen and DVT ppx per the primary team - Allow diet - PT/OT consults - Follow am CBC and PRP for labs s/p surgical procedure. (2) CAD in [place] artery: - S/p CAD s/p CABG x 1 in 2007 - follows with [facility] cardiology, Dr. Miller, as outpt. - Continue aspirin 81 mg daily, metoprolol 50 mg BID, diltiazem as below, coumadin was held prior to surgery x 5 days, resume as per primary team. - (3) A-fib: - Cont diltiazem ER 240 QAM, and diltiazem 60 mg HS - Continue Coumadin - Follow am INR (4) Atrial flutter: - Stable (5) Chronic diastolic congestive heart failure: - Cont metoprolol tartrate 25 mg BID, asa as above, lasix - Last ECHO in 2017 showing preserve LVEF of 60%. (6) Aortic stenosis: - Stable, noted (7) Mitral regurgitation: - Stable, noted (8) HTN (hypertension): - Continue antihypertensives as above (9) Hyperlipemia: - Cont pravastatin 80 mg HS (10) S/P aortic valve replacement with bioprosthetic valve: - Cont coumadin (11) Uncontrolled type 2 diabetes mellitus with neurologic complication, with long-term current use of insulin: - Glycemic pharmacy consulted - A1C= 8.0 in May, repeat with am labs - Holding metformin and NPH insulin while inpatient (12) Diabetic peripheral neuropathy: - (13) Chronic kidney disease, stage II (mild): - Follow am PRP for creatinine to monitor s/p surgical intervention (14) Pulmonary hypertension: - Hx of such (15) Hypothyroidism: - Cont levothyroxine 175 mcg daily (16) History of loop recorder: - Explantation by Dr. Cortes in Dec 2017, was initially placed in 2013. (17) DVT prophylaxis: - teds, scds, per primary team Dispo: From , Thank you for involving us in the care of Mrs. Bernabe. Please do not hesitate to call with questions or concerns. Medicine service will follow along. History of Present Illness Primary Care Provider: Mahogany M. Lizandro, WAITER/WAITRESS INFORMAL This is a 73 yo F with PMHx of CAD, afib, aflutter, Aortic valve on coumadin, DM II, pulmonary HTN, HTN, HLD, CHF, aortic stenosis, mitral regurg, CKD stage II, peripheral neuropathy, who presents for elective umbilical hernia repair by Dr. Chapman on 12/04/18. The patient was seen and examined. Allergies Allergy/AdvReac Type Severity Reaction Status Date / Time Sulfa (Sulfonamide Allergy Severe ANAPHYLAXIS Verified 11/24/18 05:32 Antibiotics) Home Medications Home Medications Medication Instructions Recorded Confirmed Type insulin U- 100 regular human 100 3 - 4 units SUBCUT DAILY #3 ml 08/22/18 11/24/18 History unit/mL injection solution metoprolol tartrate 50 mg tablet 25 mg PO BID #180 tab 08/22/18 11/24/18 History aspirin 81 mg tablet,delayed 81 mg PO QPM #0 10/19/18 11/24/18 History release diltiazem 60 mg tablet 60 mg PO HS #0 10/19/18 11/24/18 History diltiazem ER 240 mg capsule,24 240 mg PO QAM #0 cap 10/19/18 11/24/18 History hr,extended release furosemide 20 mg tablet 40 mg PO BID 90 Days #360 tab 10/19/18 11/24/18 History insulin NPH isophane U- 100 human 40 units SUBCUT QPM #1 ml 10/19/18 11/24/18 History 100 unit/mL subcutaneous suspension levothyroxine 175 mcg tablet 175 mcg PO QAM 30 Days #30 tab 10/19/18 11/24/18 History metformin ER 1,000 mg 1,000 mg PO BIDM #0 tab 10/19/18 11/24/18 History tablet,extended release 24hr potassium citrate ER 10 mEq (1,080 1,080 mg PO BID #60 tab 10/19/18 11/24/18 History mg) tablet,extended release pravastatin 80 mg tablet 80 mg PO HS 90 Days #90 tab 10/19/18 11/24/18 History azelastine 1 sprays INTNAS DAILY PRN 10/22/18 11/24/18 History cetirizine 10 mg tablet 10 mg PO QAM PRN 11/07/18 11/24/18 History ergocalciferol (vitamin D2) 50,000 50,000 unit PO Q30D 28 Days #4 cap 11/07/18 11/24/18 History unit capsule warfarin 2 mg tablet See Rx Instructions PO UD tab 11/07/18 11/24/18 History acetaminophen [Tylenol] 650 mg PO Q6H PRN 11/24/18 11/24/18 History Past Med/Surg History Family History Mother Family history of diabetes mellitus Grandmother (Maternal) Family history of diabetes mellitus Grandmother (Paternal) Family history of diabetes mellitus Aunt Family history of diabetes mellitus Uncle Family history of diabetes mellitus Father FHx: colon cancer Other FHx: esophageal cancer FHx: heart disease Social History Preferred Language: [place] Communication Ability: Effective Tram Inspector Required: No Beliefs That Will Affect Care: None Current Living Situation: Spouse Feels Safe at Home: Yes Safety Concerns: Feels Safe At This Time Smoking Status: Never smoker Do You Dip or Chew Tobacco: No ; Second Hand Exposure: No ; Hx Alcohol Use: No Hx Substance Use: No caffeine: No Seatbelt Use: always Results & Data Vital Signs (Past 12 Hours) Vital Signs Temp Pulse Pulse Resp BP BP Pulse Ox 11/24/18 12:00 103 H 17 121/71 96 11/24/18 11:15 102 H 20 120/70 94 11/24/18 11:00 103 H 23 118/69 93 11/24/18 10:44 36.5 C 103 H 16 133/69 92 11/24/18 10:20 103 H 16 134/59 L 94 11/24/18 10:05 36.7 C 102 H 14 142/61 H 96 11/24/18 09:55 102 H 13 130/63 96 11/24/18 09:45 102 H 14 148/62 H 97 11/24/18 09:35 102 H 23 144/65 H 98 11/24/18 09:25 102 H 18 152/68 H 100 11/24/18 09:15 103 H 14 158/66 H 100 11/24/18 09:05 36.2 C L 102 H 16 171/85 H 94 11/24/18 05:37 36.9 C 80 18 175/77 H 95 Code Status & VTE Plan VTE Prophylaxis Plan VTE Prophylaxis will be ordered: Yes PG Care Time/CCT Total # of Minutes Spent Total Time Spent with Patient: Total time spent is greater than 50% in coordination of care (as documented) at patient's floor/unit and/or counseling patient:
[2018-11-24] MEDS ORDERED: ACETAMINOPHEN 500 MG TAB PO PRN (12:47)
--- NOTE | 2018-11-24 13:06 | Hospitalist Consultation ---
Date of Consultation November 24, 2018 Assessment & Plan (1) History of umbilical hernia: - POD #0 - Elective, performed by Dr. Chapman - Continue pain management, bowel regimen and DVT ppx per the primary team. Last BM was this morning. - Allow diet - PT/OT consults - Follow am CBC and PRP for labs s/p surgical procedure (2) CAD in [place] artery: - S/p CAD s/p CABG x 1 in 2007 - [place] [facility] [place] Dr. Miller, as outpt. - Continue aspirin 81 mg daily, metoprolol 50 mg BID, diltiazem as below, coumadin was held prior to surgery x 5 days, resume as per primary team. (3) A-fib: - Cont diltiazem ER 240 QAM and diltiazem 60 mg HS - Continue Coumadin - Follow am INR (4) Atrial flutter: - Stable (5) Chronic diastolic congestive heart failure: - Cont metoprolol tartrate 25 mg BID, asa as above - Lasix 40 mg BID scheduled for tonight- Dry weight of 265-268 lbs at baseline. Monitor daily weights. Stop IVFs now, monitor for fluid overload, tolerating PO diet without difficulty. - Last ECHO in 2017 showing preserve LVEF of 60%. (6) Aortic stenosis: - Stable, noted (7) Mitral regurgitation: - Stable, noted (8) HTN (hypertension): - Continue antihypertensives as above (9) Hyperlipemia: - Cont pravastatin 80 mg HS (10) S/P aortic valve replacement with bioprosthetic valve: - Resume coumadin per primary team, had been held prior to surgery. (11) Uncontrolled type 2 diabetes mellitus with neurologic complication, with long-term current use of insulin: - Glycemic pharmacy consulted - A1C= 8.0 in May, repeat with am labs - Holding metformin and NPH insulin while inpatient (12) Diabetic peripheral neuropathy: - Noted, stable - PT/OT consults (13) Chronic kidney disease, stage II (mild): - Follow am PRP for creatinine to monitor s/p surgical intervention (14) Pulmonary hypertension: - Hx of such (15) Hypothyroidism: - Cont levothyroxine 175 mcg daily (16) History of loop recorder: - Explantation by Dr. Cortes in Dec 2017, was initially placed in 2013. (17) DVT prophylaxis: - teds, scds, per primary team Dispo: From home, lives with Thank you for involving us in the care of Mrs. Bernabe. Please do not hesitate to call with questions or concerns. Medicine service will follow along. Supervising Physician Co-Signing Physician Notes Patient seen and examined, chart reviewed, case discussed with SAMY Vaughan and I agree with her assessment and plan as documented above. Briefly, patient is a 73yo C female with multiple medical comorbidities to include DM, HTN, HLP, AF on Coumadin anticoagulation, CAD, s/p bioprosthetic valve replacement s/p elective umbilical hernia repair performed by Dr. Chapman today. Surgery was well tolerated, no complications identified. Patient doing well presently. Pain is well controlled, no nausea, she is passing gas, no BM yet. Blood sugars have been elevated, last 305 On physical exam she is afebrile, hemodynamically stable, NAD Skin - Abdominal binder in place. C/D/I HEENT - NC/AT, MMM, Neck supple Heart - +S1/S2, irregularly irregular, 3/6 ROSMERY at 2nd right ICS across precordium Lungs - CTA, diminished in bases Abd - +BS, soft Ext - chronic venous stasis changes, no edema Labs and images reviewed Assessment/Plan: -Post-operative pain/nausea/activity per primary team -Patient on heparin gtt, Coumadin to be initiated at discretion of primary team -Blood sugar control/Glycemic management -Remainder of plan as above History of Present Illness Reason for Consultation: Medical management Requesting Physician: Dr. Chapman Attending Physician: Keith Chapman MD, FACS History of Present Illness This is a 73 yo F with PMHx of CAD, afib, aflutter, Aortic valve on coumadin, DM II, pulmonary HTN, HTN, HLD, CHF, aortic stenosis, mitral regurg, CKD stage II, peripheral neuropathy, who presents for elective umbilical hernia repair by Dr. Chapman on 12/04/18. The patient was seen and examined and is doing well. She reports still feeling slightly "groggy" since being brought up to the floor and getting a dose of dilaudid ( 0.5 mg IV) at noon. She notes that she would prefer to avoid narcotic agents. We discussed using tylenol around the clock for pain management and she is agreeable to this. She denies any other acute complaints currently. Pt tolerated lunch without difficulty, last BM was this morning prior to admission. Allergies Allergy/AdvReac Type Severity Reaction Status Date / Time Sulfa (Sulfonamide Allergy Severe ANAPHYLAXIS Verified 11/24/18 05:32 Antibiotics) Home Medications Home Medications Medication Instructions Recorded Confirmed Type insulin U- 100 regular human 100 3 - 4 units SUBCUT DAILY #3 ml 08/22/18 11/24/18 History unit/mL injection solution metoprolol tartrate 50 mg tablet 25 mg PO BID #180 tab 08/22/18 11/24/18 History aspirin 81 mg tablet,delayed 81 mg PO QPM #0 10/19/18 11/24/18 History release diltiazem 60 mg tablet 60 mg PO HS #0 10/19/18 11/24/18 History diltiazem ER 240 mg capsule,24 240 mg PO QAM #0 cap 10/19/18 11/24/18 History hr,extended release furosemide 20 mg tablet 40 mg PO BID 90 Days #360 tab 10/19/18 11/24/18 History insulin NPH isophane U- 100 human 40 units SUBCUT QPM #1 ml 10/19/18 11/24/18 History 100 unit/mL subcutaneous suspension levothyroxine 175 mcg tablet 175 mcg PO QAM 30 Days #30 tab 10/19/18 11/24/18 History metformin ER 1,000 mg 1,000 mg PO BIDM #0 tab 10/19/18 11/24/18 History tablet,extended release 24hr potassium citrate ER 10 mEq (1,080 1,080 mg PO BID #60 tab 10/19/18 11/24/18 History mg) tablet,extended release pravastatin 80 mg tablet 80 mg PO HS 90 Days #90 tab 10/19/18 11/24/18 History azelastine 1 sprays INTNAS DAILY PRN 10/22/18 11/24/18 History cetirizine 10 mg tablet 10 mg PO QAM PRN 11/07/18 11/24/18 History ergocalciferol (vitamin D2) 50,000 50,000 unit PO Q30D 28 Days #4 cap 11/07/18 11/24/18 History unit capsule warfarin 2 mg tablet See Rx Instructions PO UD tab 11/07/18 11/24/18 History acetaminophen [Tylenol] 650 mg PO Q6H PRN 11/24/18 11/24/18 History Patient History Family History Mother Family history of diabetes mellitus Grandmother (Maternal) Family history of diabetes mellitus Grandmother (Paternal) Family history of diabetes mellitus Aunt Family history of diabetes mellitus Uncle Family history of diabetes mellitus Father FHx: colon cancer Other FHx: esophageal cancer FHx: heart disease Social History Preferred Language: Cymro Communication Ability: Effective Spray Stainer Required: No Beliefs That Will Affect Care: None Current Living Situation: Spouse Feels Safe at Home: Yes Safety Concerns: Feels Safe At This Time Smoking Status: Never smoker Do You Dip or Chew Tobacco: No ; Second Hand Exposure: No ; Hx Alcohol Use: No Hx Substance Use: No caffeine: No Seatbelt Use: always Review of Systems Review of Systems: Constitutional: No fever, sweats or chills Eyes: No diplopia, no worsening or blurred vision ENT: normal hearing, no trouble swallowing Respiratory: No cough, sputum, dyspnea at rest or on exertion Cardiovascular: No chest pain, tightness or palpitations Abdomen: + abdominal binder on, +Mild pain and bloating. No nausea, vomiting, diarrhea or constipation Musculoskeletal: No joint pain, calf pain, swelling Neurologic: No weakness, numbness/tingling, or balance problems Psychiatric: No anxiety or depression Skin: No rash or itch Physical Exam Physical Exam: General: awake, alert, no apparent distress, + obese Head: Normocephalic, atraumatic ENT: PERRL, EOMI, no pharyngeal exudate, mucous membranes moist Chest: Clear to auscultation, on room air, no adventitious breath sounds Cardiac: Regular rate and rhythm, no murmur, no JVD, normal peripheral pulses, good capillary refill Abdominal: NABS x 4 quadrants, +abdominal binder in place, +mildly distended, tenderness with minimal movement and palpation. Extremities: Normal inspection, no peripheral edema or erythema, calfs nontender to palpation Psych: Normal mood and affect Neuro: AAO x 3, no motor deficits, speech is clear Results & Data Vital Signs (Past 12 Hours) Vital Signs Temp Pulse Pulse Resp BP BP Pulse Ox 11/24/18 12:00 103 H 17 121/71 96 11/24/18 11:15 102 H 20 120/70 94 11/24/18 11:00 103 H 23 118/69 93 11/24/18 10:44 36.5 C 103 H 16 133/69 92 11/24/18 10:20 103 H 16 134/59 L 94 11/24/18 10:05 36.7 C 102 H 14 142/61 H 96 11/24/18 09:55 102 H 13 130/63 96 11/24/18 09:45 102 H 14 148/62 H 97 11/24/18 09:35 102 H 23 144/65 H 98 11/24/18 09:25 102 H 18 152/68 H 100 11/24/18 09:15 103 H 14 158/66 H 100 11/24/18 09:05 36.2 C L 102 H 16 171/85 H 94 11/24/18 05:37 36.9 C 80 18 175/77 H 95 PG Care Time/CCT Total # of Minutes Spent Total Time Spent with Patient: Total time spent is greater than 50% in coordination of care (as documented) at patient's floor/unit and/or counseling patient:
[2018-11-24] MEDS: INSULIN ASPART 100 UNITS/ML 3 ML PEN SC SCH ×3 (13:40→20:31)
--- NOTE | 2018-11-24 15:36 | Pharmacy Report ---
Pharmacy Glycemic Short Note 2 - Date of Service November 24, 2018 - Glycemic Short BSG Results (Last 24 hours): 11/24/18 11/24/18 11/24/18 05:27 09:12 11:44 POC Glucose 157 H 181 H 234 H 11/24/18 13:38 POC Glucose 225 H OUTPATIENT ANTIDIABETIC REGIMEN: RN confirmed regimen with patient * metformin 1000mg BIDM * levemir 40 units HS (20 units if BSG < 150 mg/dL) * novolog 4 units with breakfast and lunch and 6 units with dinner; PLUS if >150 use a correction factor of 30 mg/dL ASSESSMENT: * Patient POD1 (umbilical hernia) with moderate hyperglycemia at lunchtime. Will continue with a modified version of patient's home levemir starting this evening and adjust as necessary. Will use a weight based stress of 2 novolog scale for now to provide additional insulin coverage PLAN FOR INPATIENT GLYCEMIC CONTROL: * Hold outpatient oral diabetes medications * Basal insulin * Levemir 20, 30 or 40 units SQ HS based on BSG (see MAR for details) * Bolus insulin * NovoLog per scale ACHS or Q6hrs while NPO * Goal Range: Low 110 mg/dL - High 150 mg/dL * Correction Factor: 20 mg/dL/unit * Nutritional / Prandial insulin per carb ratio of 1 unit per 6 grams CHO consumed
[2018-11-24] MEDS: HYDROCODONE/ACETAMOPHEN 5/325MG TAB PO PRN (15:44)
[2018-11-24] MEDS ORDERED: INSULIN HUMAN NPH SC ONE (17:00)
[2018-11-24] MEDS: PRAVASTATIN SOD 40 MG TAB PO SCH (20:29)
[2018-11-24] MEDS: dilTIAZem HCl 60 MG TAB PO SCH (20:29)
[2018-11-24] MEDS: INSULIN DETEMIR FLEXPEN/FLEX TOUCH 100 UNITS/ML 3ML SC SCH (20:30)
[2018-11-24] MEDS: HEPARIN SODIUM/DEXTROSE 25,000 UNITS/500 ML BAG IV SCH (20:35)
[2018-11-25] MEDS: HYDROmorphone INJ 0.5 MG/0.5 ML SYR IV PRN (01:16)
[2018-11-25 05:36] LABS: Basophils # (auto) 0.03 K/uL (0-0.2); Basophils % (auto) 0.3 %; Eosinophils # (auto) 0.18 K/uL (0-0.5); Hematocrit (blood only) 34.4 % (37-47); Hemoglobin 10.9 g/dL (12.0-16.0); Immature Granulocytes # (auto) 0.03 K/uL (0.00-0.02); Immature Granulocytes % (auto) 0.3 %; Lymphocytes % (auto) 21.9 %; Mean Corpuscular Hemoglobin 27.4 pg (25-34); Mean Corpuscular Hgb Conc 31.7 g/dL (32-36); Mean Corpuscular Volume 86.4 fL (80-100); Mean Platelet Volume 10.5 fL (7.4-10.4); Monocytes % (auto) 8.8 %; Neutrophils # (auto) 6.09 K/uL (1.4-6.5); Neutrophils % (auto) 66.7 %; Platelet Count 199 K/uL (130-400); RDW Coefficient of Variation 14.5 % (11.5-14.5); RDW Standard Deviation 45.7 fL (36.4-46.3); Red Blood Count 3.98 M/uL (4.2-5.4); White Blood Count 9.13 K/uL (4.8-10.8)
[2018-11-25] MEDS: LEVOTHYROXINE SODIUM 175 MCG TABLET PO SCH (05:41)
[2018-11-25] MEDS: HYDROCODONE/ACETAMOPHEN 5/325MG TAB PO PRN ×2 (05:41→21:00)
[2018-11-25] MEDS: CEFAZOLIN 1000MG 1,000 MG/7.5 ML SYR IV SCH ×3 (05:44→22:25)
[2018-11-25 05:48] LABS: Partial Thromboplastin Ratio 1.1; Partial Thromboplastin Time 30.5 Seconds (21.0-31.0)
[2018-11-25 06:03] LABS: INR 1.5 (0.9-1.1); Prothrombin Time 14.7 Seconds (9.0-12.0)
[2018-11-25 06:06] LABS: Albumin Level 3.4 gm/dl (3.4-5.0); BUN Creatinine Ratio 21.9 (10-20); Calcium 8.7 mg/dl (8.5-10.1); Creatinine Clr Calc Pharmacy 52.8 ml/min; Est GFR (African American) 46.9; Est GFR (Non-African American) 40.5; Magnesium 2.2 mg/dl (1.8-2.4); Potassium 4.1 mmol/L (3.5-5.1)
[2018-11-25 06:08] LABS: Albumin Level 3.4 gm/dl (3.4-5.0); BUN Creatinine Ratio 23.4 (10-20); Calcium 8.8 mg/dl (8.5-10.1); Creatinine Clr Calc Pharmacy 53.6 ml/min; Est GFR (African American) 47.8; Est GFR (Non-African American) 41.2; Potassium 4.1 mmol/L (3.5-5.1)
[2018-11-25 06:10] LABS: Albumin Globulin Ratio 0.9 (0.9-2); Bilirubin,Total 0.5 mg/dl (0.2-1); Globulin 3.8 gm/dl (2.5-4.0); Globulin 3.9 gm/dl (2.5-4.0); Phosphorus 5.1 mg/dl (2.5-4.9); Total Protein 7.2 gm/dl (6.4-8.2); Total Protein 7.3 gm/dl (6.4-8.2)
[2018-11-25 06:21] LABS: Estimated Average Glucose 186 mg/dl; Hemoglobin A1C 8.1 % (4.5-5.6)
--- NOTE | 2018-11-25 07:44 | Anesthesiology Progress Note ---
Date of Service November 25, 2018 Anesthesia Post Procedure Vital Signs Vital Signs: Temp Pulse Pulse Pulse Resp BP BP 11/25/18 04:15 37.0 C 87 18 124/68 11/24/18 23:21 36.9 C 68 18 124/71 11/24/18 19:34 36.8 C 61 19 115/59 L 11/24/18 18:38 88 11/24/18 14:56 36.5 C 102 H 20 108/70 11/24/18 12:00 103 H 17 121/71 11/24/18 11:15 102 H 20 120/70 11/24/18 11:00 103 H 23 118/69 11/24/18 10:44 36.5 C 103 H 16 133/69 11/24/18 10:20 103 H 16 134/59 L 11/24/18 10:05 36.7 C 102 H 14 142/61 H 11/24/18 09:55 102 H 13 130/63 11/24/18 09:45 102 H 14 148/62 H 11/24/18 09:35 102 H 23 144/65 H 11/24/18 09:25 102 H 18 152/68 H 11/24/18 09:15 103 H 14 158/66 H 11/24/18 09:05 36.2 C L 102 H 16 171/85 H Pulse Ox 11/25/18 04:15 92 11/24/18 23:21 94 11/24/18 19:34 95 11/24/18 18:38 11/24/18 14:56 95 11/24/18 12:00 96 11/24/18 11:15 94 11/24/18 11:00 93 11/24/18 10:44 92 11/24/18 10:20 94 11/24/18 10:05 96 11/24/18 09:55 96 11/24/18 09:45 97 11/24/18 09:35 98 11/24/18 09:25 100 11/24/18 09:15 100 11/24/18 09:05 94 Pain Intensity Abdomen: Pain Intensity: 3 Notes Mental Status: alert / awake / arousable and participated in evaluation Patient Amnestic to Procedure: Yes Nausea / Vomiting: adequately controlled Pain: adequately controlled Airway Patency, RR, SpO2: stable & adequate BP & HR: stable & adequate Hydration State: stable & adequate Anesthetic Complications: no major complications apparent
[2018-11-25] MEDS: dilTIAZem ER 120 MG CAPCR PO SCH (08:04)
[2018-11-25] MEDS: POTASSIUM CITRATE 10 MEQ TAB PO SCH ×2 (08:04→21:01)
[2018-11-25] MEDS: DOCUSATE SODIUM/SENNA 50/8.6MG TAB PO SCH ×2 (08:04→21:02)
[2018-11-25] MEDS: METOPROLOL TARTRATE 25 MG TAB PO SCH ×2 (08:05→21:01)
[2018-11-25] MEDS: INSULIN ASPART 100 UNITS/ML 3 ML PEN SC SCH ×4 (08:07→21:22)
[2018-11-25] MEDS: MAGNESIUM HYDROXIDE SUSP 30 ML UDC PO SCH ×2 (08:07→21:24)
[2018-11-25] MEDS: FUROSEMIDE 20 MG TAB PO SCH ×2 (09:01→16:25)
--- NOTE | 2018-11-25 12:09 | Surgery Progress Note ---
Date of Service November 25, 2018 Assessment & Plan (1) S/P laparoscopic hernia repair: stable adv diet, activity IV Heparin- incr to 800u/hr, 5 mg Coumadin today ch PTT supportive care Results & Data Vital Signs (Past 12 Hours) Vital Signs Temp Pulse Pulse Pulse Resp BP BP 11/25/18 08:00 88 11/25/18 07:30 37.1 C 84 18 102/63 11/25/18 04:15 37.0 C 87 18 124/68 Pulse Ox 11/25/18 08:00 11/25/18 07:30 93 11/25/18 04:15 92 PG Care Time/CCT Total # of Minutes Spent Total Time Spent with Patient: Total time spent is greater than 50% in coordination of care (as documented) at patient's floor/unit and/or counseling patient:
[2018-11-25] MEDS ORDERED: Nursing to Pharmacy Communication ONE (13:56)
[2018-11-25 16:08] LABS: Partial Thromboplastin Ratio 1.1; Partial Thromboplastin Time 30.8 Seconds (21.0-31.0)
[2018-11-25] MEDS: WARFARIN SOD 5 MG TAB PO SCH (16:25)
[2018-11-25] MEDS: dilTIAZem HCl 60 MG TAB PO SCH (21:01)
[2018-11-25] MEDS: PRAVASTATIN SOD 40 MG TAB PO SCH (21:02)
[2018-11-25] MEDS: INSULIN DETEMIR FLEXPEN/FLEX TOUCH 100 UNITS/ML 3ML SC SCH (21:22)
--- NOTE | 2018-11-25 22:28 | Hospitalist Progress Note ---
Date of Service November 25, 2018 Assessment & Plan (1) History of umbilical hernia: POD #1 s/p laparoscopic umbilical hernia repair by Dr Chapman. Defer management to surgery. (2) CAD in [place] artery: s/p CABG x 1 in 2007 - follows with Dr. Miller. No ischemic symptoms post-op. Continue aspirin 81 mg daily, metoprolol 50 mg BID, statin (3) A-fib: Cont diltiazem ER 240 QAM and diltiazem 60 mg HS Coumadin resumed; heparin drip in place as bridge. Daily INR. (4) Atrial flutter: Rates controlled. On heparin drip w/ coumadin. Cont BB, CCB. (5) Chronic diastolic congestive heart failure: Compensated. Cont BB. Cont lasix BID. (6) Aortic stenosis: (7) Mitral regurgitation: (8) HTN (hypertension): Controlled with home meds (9) Hyperlipemia: Cont pravastatin 80 mg HS (10) S/P aortic valve replacement with bioprosthetic valve: (11) Uncontrolled type 2 diabetes mellitus with neurologic complication, with long-term current use of insulin: Glycemic pharmacy consulted and recs appreciated hb a1c 8.1% as expected had post-op hyperglycemia 2nd to perioperative stress improved today (12) Diabetic peripheral neuropathy: (13) Chronic kidney disease, stage II (mild): BMP stable (14) Pulmonary hypertension: - Hx of such; noted (15) Hypothyroidism: Cont levothyroxine 175 mcg daily consider TSH check this admission (16) DVT prophylaxis: heparin drip with coumadin Subjective patient resting comfortably during the visit. family were at bedside. tele overnight - a.fib/flutter. she reports minimal passage of flatus and feels bloated. despite such able to eat today. denies dyspnea. denies cp. no nausea. Review of Systems Constitutional: no fever Respiratory: no cough and no dyspnea Cardiovascular: no chest pain Gastrointestinal: + abdominal pain; no nausea and no vomiting Physical Exam Constitutional: + morbidly obese; no acute distress and no altered mental stat us ENMT: external ear and nose normal, oropharynx normal Respiratory: normal respiratory effort, lungs clear to auscultation Cardiovascular: Rate/Rhythm: regular rate and + irregularly irregular Heart Sounds: normal S1, normal S2 and + murmur (2/6 RUSB) Vessels: posterior tibial pulses present and dorsalis pedis pulses present; no JVD Extremities: no edema Gastrointestinal (Abdomen): Inspection/Auscultation: + abdomen distended and normal bowel sounds Percussion/Palpation: + abdomen tender abdominal binder in place Psychiatric: A+Ox3, euthymic affect Results & Data Vital Signs (Past 12 Hours) Vital Signs Temp Pulse Resp BP Pulse Ox 11/25/18 20:29 37.1 C 59 L 18 132/75 91 11/25/18 15:57 36.8 C 56 L 23 122/71 93 11/25/18 14:13 93 11/25/18 11:30 36.9 C 84 18 104/61 95 Laboratory Results Laboratory Results - last 24 hr 11/25/18 11/25/18 11/25/18 05:16 05:16 05:16 WBC 9.13 RBC 3.98 L Hgb 10.9 L Hct 34.4 L MCV 86.4 MCH 27.4 MCHC 31.7 L RDW Std Deviation 45.7 RDW Coeff of [place] 14.5 Plt Count 199 MPV 10.5 H Immature Gran % (Auto) 0.3 Neut % (Auto) 66.7 Lymph % (Auto) 21.9 [place] % (Auto) 8.8 Eos % (Auto) 2.0 Baso % (Auto) 0.3 Immature Gran # (Auto) 0.03 H Neut # (Auto) 6.09 Lymph # (Auto) 2.00 [place] # (Auto) 0.80 H Eos # (Auto) 0.18 Baso # (Auto) 0.03 PT INR APTT PTT Ratio Sodium 141 140 Potassium 4.1 4.1 Chloride 102 101 Carbon Dioxide 33 H 32 Anion Gap 6.0 7.0 BUN 29 H 30 H Creatinine 1.32 H 1.30 H Est Cr Clr Drug Dosing 52.8 53.6 Est GFR ( Amer) 46.9 47.8 Est GFR (Non-Af Amer) 40.5 41.2 BUN/Creatinine Ratio 21.9 H 23.4 H Glucose 106 H 105 H POC Glucose Estimat Average Glucose Hemoglobin A1c Calcium 8.7 8.8 Phosphorus 5.1 H 5.0 H Magnesium 2.2 Total Bilirubin 0.5 0.5 AST 17 17 ALT 15 15 Alkaline Phosphatase 126 H 128 H Total Protein 7.3 7.2 Albumin 3.4 3.4 Globulin 3.9 3.8 Albumin/Globulin Ratio 0.9 0.9 11/25/18 11/25/18 11/25/18 05:16 05:16 05:16 WBC RBC Hgb Hct MCV MCH MCHC RDW Std Deviation RDW Coeff of [place] Plt Count MPV Immature Gran % (Auto) Neut % (Auto) Lymph % (Auto) [place] % (Auto) Eos % (Auto) Baso % (Auto) Immature Gran # (Auto) Neut # (Auto) Lymph # (Auto) [place] # (Auto) Eos # (Auto) Baso # (Auto) PT 14.7 H INR 1.5 H APTT 30.5 PTT Ratio 1.1 Sodium Potassium Chloride Carbon Dioxide Anion Gap BUN Creatinine Est Cr Clr Drug Dosing Est GFR ( Amer) Est GFR (Non-Af Amer) BUN/Creatinine Ratio Glucose POC Glucose Estimat Average Glucose 186 Hemoglobin A1c 8.1 H Calcium Phosphorus Magnesium Total Bilirubin AST ALT Alkaline Phosphatase Total Protein Albumin Globulin Albumin/Globulin Ratio 11/25/18 11/25/18 11/25/18 07:34 11:20 15:48 WBC RBC Hgb Hct MCV MCH MCHC RDW Std Deviation RDW Coeff of [place] Plt Count MPV Immature Gran % (Auto) Neut % (Auto) Lymph % (Auto) [place] % (Auto) Eos % (Auto) Baso % (Auto) Immature Gran # (Auto) Neut # (Auto) Lymph # (Auto) [place] # (Auto) Eos # (Auto) Baso # (Auto) PT INR APTT 30.8 PTT Ratio 1.1 Sodium Potassium Chloride Carbon Dioxide Anion Gap BUN Creatinine Est Cr Clr Drug Dosing Est GFR ( Amer) Est GFR (Non-Af Amer) BUN/Creatinine Ratio Glucose POC Glucose 121 H 131 H Estimat Average Glucose Hemoglobin A1c Calcium Phosphorus Magnesium Total Bilirubin AST ALT Alkaline Phosphatase Total Protein Albumin Globulin Albumin/Globulin Ratio 11/25/18 11/25/18 16:32 21:19 WBC RBC Hgb Hct MCV MCH MCHC RDW Std Deviation RDW Coeff of [place] Plt Count MPV Immature Gran % (Auto) Neut % (Auto) Lymph % (Auto) [place] % (Auto) Eos % (Auto) Baso % (Auto) Immature Gran # (Auto) Neut # (Auto) Lymph # (Auto) [place] # (Auto) Eos # (Auto) Baso # (Auto) PT INR APTT PTT Ratio Sodium Potassium Chloride Carbon Dioxide Anion Gap BUN Creatinine Est Cr Clr Drug Dosing Est GFR ( Amer) Est GFR (Non-Af Amer) BUN/Creatinine Ratio Glucose POC Glucose 165 H 199 H Estimat Average Glucose Hemoglobin A1c Calcium Phosphorus Magnesium Total Bilirubin AST ALT Alkaline Phosphatase Total Protein Albumin Globulin Albumin/Globulin Ratio PG Care Time/CCT Total # of Minutes Spent Total Time Spent with Patient: Total time spent is greater than 50% in coordination of care (as documented) at patient's floor/unit and/or counseling patient: (1) Aortic stenosis Cardiac valve disease etiology: etiology unspecified Qualified Code(s): I35.0 - Nonrheumatic aortic (valve) stenosis (2) A-fib Atrial fibrillation type: permanent Qualified Code(s): I48.2 - Chronic atrial fibrillation (3) Atrial flutter Atrial flutter type: unspecified Qualified Code(s): I48.92 - Unspecified atrial flutter (4) Hyperlipemia Hyperlipidemia type: mixed hyperlipidemia Qualified Code(s): E78.2 - Mixed hyperlipidemia (5) Hypothyroidism Hypothyroidism type: acquired Qualified Code(s): E03.9 - Hypothyroidism, unspecified (6) Mitral regurgitation Cardiac valve disease etiology: etiology unspecified Qualified Code(s): I34.0 - Nonrheumatic mitral (valve) insufficiency (7) HTN (hypertension) Hypertension type: essential hypertension Qualified Code(s): I10 - Essential (primary) hypertension
[2018-11-26] MEDS: CEFAZOLIN 1000MG 1,000 MG/7.5 ML SYR IV SCH ×3 (06:13→21:45)
[2018-11-26] MEDS: HYDROCODONE/ACETAMOPHEN 5/325MG TAB PO PRN ×2 (06:13→20:53)
[2018-11-26] MEDS: LEVOTHYROXINE SODIUM 175 MCG TABLET PO SCH (06:13)
[2018-11-26] MEDS: HEPARIN SODIUM/DEXTROSE 25,000 UNITS/500 ML BAG IV SCH (06:23)
--- NOTE | 2018-11-26 06:42 | Surgery Progress Note ---
Date of Service November 26, 2018 Assessment & Plan (1) S/P laparoscopic hernia repair: doing well- some flatus cont IV Heparin and Coumadin 5 mg today to regular floor- possible d/c tomorrow- check coags in am resume normal Coumadin dose Fri Results & Data Vital Signs (Past 12 Hours) Vital Signs Temp Pulse Resp BP BP Pulse Ox 11/26/18 03:49 36.9 C 69 20 119/68 95 11/25/18 23:59 36.8 C 68 22 138/73 94 11/25/18 20:29 37.1 C 59 L 18 132/75 91 PG Care Time/CCT Total # of Minutes Spent Total Time Spent with Patient: Total time spent is greater than 50% in coordination of care (as documented) at patient's floor/unit and/or counseling patient:
[2018-11-26 07:22] LABS: Hematocrit (blood only) 32.8 % (37-47); Hemoglobin 10.5 g/dL (12.0-16.0); Mean Corpuscular Hemoglobin 27.2 pg (25-34); Mean Platelet Volume 9.9 fL (7.4-10.4); Platelet Count 166 K/uL (130-400); RDW Coefficient of Variation 14.4 % (11.5-14.5); RDW Standard Deviation 44.7 fL (36.4-46.3); Red Blood Count 3.86 M/uL (4.2-5.4); White Blood Count 7.94 K/uL (4.8-10.8)
[2018-11-26 07:32] LABS: INR 1.6 (0.9-1.1); Partial Thromboplastin Ratio 1.2; Partial Thromboplastin Time 33.3 Seconds (21.0-31.0); Prothrombin Time 16.1 Seconds (9.0-12.0)
[2018-11-26 08:01] LABS: Albumin Level 3.2 gm/dl (3.4-5.0); BUN Creatinine Ratio 23.2 (10-20); Calcium 8.9 mg/dl (8.5-10.1); Est GFR (African American) 44.5; Est GFR (Non-African American) 38.4; Potassium 3.9 mmol/L (3.5-5.1)
[2018-11-26 08:03] LABS: Albumin Globulin Ratio 0.8 (0.9-2); Bilirubin,Total 0.6 mg/dl (0.2-1); Total Protein 7.2 gm/dl (6.4-8.2)
[2018-11-26] MEDS: INSULIN ASPART 100 UNITS/ML 3 ML PEN SC SCH ×4 (08:11→20:57)
[2018-11-26] MEDS: FUROSEMIDE 20 MG TAB PO SCH ×2 (08:13→16:22)
[2018-11-26] MEDS: dilTIAZem ER 120 MG CAPCR PO SCH (08:13)
[2018-11-26] MEDS: DOCUSATE SODIUM/SENNA 50/8.6MG TAB PO SCH ×2 (08:13→21:40)
[2018-11-26] MEDS: POTASSIUM CITRATE 10 MEQ TAB PO SCH ×2 (08:13→21:42)
[2018-11-26] MEDS: METOPROLOL TARTRATE 25 MG TAB PO SCH ×2 (08:13→21:40)
[2018-11-26] MEDS: MAGNESIUM HYDROXIDE SUSP 30 ML UDC PO SCH ×2 (08:16→21:40)
[2018-11-26] MEDS: ASPIRIN 81 MG ECTAB PO SCH (08:30)
--- NOTE | 2018-11-26 14:39 | Pharmacy Report ---
Pharmacy Glycemic Short Note 2 - Date of Service November 26, 2018 - Glycemic Short BSG Results (Last 24 hours): 11/25/18 11/25/18 11/26/18 16:32 21:19 07:05 Glucose 142 H POC Glucose 165 H 199 H 11/26/18 11/26/18 07:14 11:57 Glucose POC Glucose 151 H 158 H OUTPATIENT ANTIDIABETIC REGIMEN: RN confirmed regimen with patient * metformin 1000mg BIDM * levemir 40 units HS (20 units if BSG < 150 mg/dL) * novolog 4 units with breakfast and lunch and 6 units with dinner; PLUS if >150 use a correction factor of 30 mg/dL ASSESSMENT: * Patient POD1 (umbilical hernia) with moderate hyperglycemia at lunchtime. Will continue with a modified version of patient's home levemir starting this evening and adjust as necessary. Will use a weight based stress of 2 novolog scale for now to provide additional insulin coverage PLAN FOR INPATIENT GLYCEMIC CONTROL: * Hold outpatient oral diabetes medications * Basal insulin * Levemir 20, 30 or 40 units SQ HS based on BSG (see MAR for details) * Bolus insulin * NovoLog per scale ACHS or Q6hrs while NPO * Goal Range: Low 110 mg/dL - High 150 mg/dL * Correction Factor: 20 mg/dL/unit * Nutritional / Prandial insulin per carb ratio of 1 unit per 6 grams CHO consumed DISCHARGE RECOMMENDATIONS * A1c 8.1% on 11/25/18. For most, this level should be below 8%; and for many much lower. Patient on appropriate therapy with metformin, basal and bolus. Continue to work with outpatient provider to optimize dosage.
[2018-11-26] MEDS: WARFARIN SOD 5 MG TAB PO SCH (16:21)
[2018-11-26] MEDS ORDERED: Nursing to Pharmacy Communication ONE (16:33)
[2018-11-26] MEDS ORDERED: COUGH DROP (SUGAR FREE) LOZ 24 LOZ/1 BOX BUCCAL PRN (16:36)
[2018-11-26] MEDS ORDERED: INSULIN DETEMIR FLEXPEN/FLEX TOUCH 100 UNITS/ML 3ML SC SCH (21:00)
[2018-11-26] MEDS: dilTIAZem HCl 60 MG TAB PO SCH (21:41)
[2018-11-26] MEDS: PRAVASTATIN SOD 40 MG TAB PO SCH (21:42)
--- NOTE | 2018-11-27 04:47 | Hospitalist Progress Note ---
Date of Service November 26, 2018 Assessment & Plan (1) History of umbilical hernia: POD #2 s/p laparoscopic umbilical hernia repair by Dr Chapman. Defer management to surgery. Doing well from surgery standpoint. Passing flatus. Eating ok. Ambulating. (2) CAD in [place] artery: s/p CABG x 1 in 2007 - follows with Dr. Miller. Still no ischemic symptoms post-op. Continue aspirin 81 mg daily, metoprolol 50 mg BID, statin (3) A-fib: Cont diltiazem ER 240 QAM and diltiazem 60 mg HS Heparin drip in place as bridge w/ coumadin. Daily INR. (4) Atrial flutter: Rates controlled. On heparin drip w/ coumadin. Cont BB, CCB. (5) Chronic diastolic congestive heart failure: Compensated. Cont BB. Cont lasix BID. (6) Aortic stenosis: Stable. (7) Mitral regurgitation: Stable (8) HTN (hypertension): Controlled with home meds (9) Hyperlipemia: Cont pravastatin 80 mg HS (10) S/P aortic valve replacement with bioprosthetic valve: noted no issues (11) Uncontrolled type 2 diabetes mellitus with neurologic complication, with long-term current use of insulin: Glycemic pharmacy consulted and recs appreciated hb a1c 8.1% as expected had post-op hyperglycemia 2nd to perioperative stress but control last 24 hours much improved (12) Diabetic peripheral neuropathy: no issues (13) Chronic kidney disease, stage II (mild): Cr stable this am on labs repeat again in am (14) Pulmonary hypertension: noted no O2 requirement at this time (15) Hypothyroidism: Cont levothyroxine 175 mcg daily check TSH am (16) DVT prophylaxis: heparin drip with coumadin doing nicely agree w/ transfer off tele to med/surg repeat labs am Subjective overnight pt's a.fib/flutter was controlled on tele she is feeling decent passing more flatus abd bloating improved no nausea/emesis no chest pain denies dyspnea at rest or w/ exertion Review of Systems Constitutional: no fever Respiratory: + cough (some mucous) Cardiovascular: no chest pain and no palpitations Gastrointestinal: as per Subjective / HPI; no nausea and no vomiting Physical Exam Constitutional: + morbidly obese; no acute distress and no altered mental status ENMT: external ear and nose normal, oropharynx normal Respiratory: normal respiratory effort Auscultation: + crackles (minimal - bases) Cardiovascular: Rate/Rhythm: regular rate and + irregularly irregular Heart Sounds: normal S1, normal S2 and + murmur (2/6 RUSB) Vessels: posterior tibial pulses present and dorsalis pedis pulses present; no JVD Extremities: + edema (1+ b/l with venous stasis changes ) Gastrointestinal (Abdomen): Inspection/Auscultation: + abdomen distended (but maybe a little better than yesterday) and normal bowel sounds Percussion/Palpation: + abdomen tender (especially lower right abdomen ) Psychiatric: A+Ox3, euthymic affect Results & Data Vital Signs (Past 12 Hours) Vital Signs Temp Pulse Resp BP Pulse Ox 11/26/18 23:00 37.0 C 96 H 17 141/72 H 91 Laboratory Results Laboratory Results - last 24 hr 11/26/18 11/26/18 11/26/18 07:05 07:05 07:05 WBC 7.94 RBC 3.86 L Hgb 10.5 L Hct 32.8 L MCV 85.0 MCH 27.2 MCHC 32.0 RDW Std Deviation 44.7 RDW Coeff of [place] 14.4 Plt Count 166 MPV 9.9 PT 16.1 H INR 1.6 H APTT 33.3 H PTT Ratio 1.2 Sodium 137 Potassium 3.9 Chloride 101 Carbon Dioxide 30 Anion Gap 6.0 BUN 32 H Creatinine 1.38 H Est Cr Clr Drug Dosing 51.0 Est GFR ( Amer) 44.5 Est GFR (Non-Af Amer) 38.4 BUN/Creatinine Ratio 23.2 H Glucose 142 H POC Glucose Calcium 8.9 Total Bilirubin 0.6 AST 18 ALT 10 L Alkaline Phosphatase 131 H Total Protein 7.2 Albumin 3.2 L Globulin 4.0 Albumin/Globulin Ratio 0.8 L 11/26/18 11/26/18 11/26/18 07:14 11:57 17:04 WBC RBC Hgb Hct MCV MCH MCHC RDW Std Deviation RDW Coeff of [place] Plt Count MPV PT INR APTT PTT Ratio Sodium Potassium Chloride Carbon Dioxide Anion Gap BUN Creatinine Est Cr Clr Drug Dosing Est GFR ( Amer) Est GFR (Non-Af Amer) BUN/Creatinine Ratio Glucose POC Glucose 151 H 158 H 182 H Calcium Total Bilirubin AST ALT Alkaline Phosphatase Total Protein Albumin Globulin Albumin/Globulin Ratio 11/26/18 20:37 WBC RBC Hgb Hct MCV MCH MCHC RDW Std Deviation RDW Coeff of [place] Plt Count MPV PT INR APTT PTT Ratio Sodium Potassium Chloride Carbon Dioxide Anion Gap BUN Creatinine Est Cr Clr Drug Dosing Est GFR ( Amer) Est GFR (Non-Af Amer) BUN/Creatinine Ratio Glucose POC Glucose 212 H Calcium Total Bilirubin AST ALT Alkaline Phosphatase Total Protein Albumin Globulin Albumin/Globulin Ratio PG Care Time/CCT Total # of Minutes Spent Total Time Spent with Patient: Total time spent is greater than 50% in coordination of care (as documented) at patient's floor/unit and/or counseling patient: (1) A-fib Atrial fibrillation type: permanent Qualified Code(s): I48.2 - Chronic atrial fibrillation (2) Atrial flutter Atrial flutter type: unspecified Qualified Code(s): I48.92 - Unspecified atrial flutter (3) Aortic stenosis Cardiac valve disease etiology: etiology unspecified Qualified Code(s): I35.0 - Nonrheumatic aortic (valve) stenosis (4) Mitral regurgitation Cardiac valve disease etiology: etiology unspecified Qualified Code(s): I34.0 - Nonrheumatic mitral (valve) insufficiency (5) HTN (hypertension) Hypertension type: essential hypertension Qualified Code(s): I10 - Essential (primary) hypertension (6) Hyperlipemia Hyperlipidemia type: mixed hyperlipidemia Qualified Code(s): E78.2 - Mixed hyperlipidemia (7) Hypothyroidism Hypothyroidism type: acquired Qualified Code(s): E03.9 - Hypothyroidism, unspecified
[2018-11-27] MEDS: CEFAZOLIN 1000MG 1,000 MG/7.5 ML SYR IV SCH (05:27)
--- NOTE | 2018-11-27 06:18 | Surgery Progress Note ---
Date of Service November 27, 2018 Assessment & Plan (1) S/P laparoscopic hernia repair: Plan d/c home ch coags- possibly give 5 mg Coumadin prior to d/c then usual dose at home starting tomorrow see in office next week Results & Data Vital Signs (Past 12 Hours) Vital Signs Temp Pulse Resp BP Pulse Ox 11/26/18 23:00 37.0 C 96 H 17 141/72 H 91 PG Care Time/CCT Total # of Minutes Spent Total Time Spent with Patient: Total time spent is greater than 50% in coordination of care (as documented) at patient's floor/unit and/or counseling patient:
[2018-11-27] MEDS: LEVOTHYROXINE SODIUM 175 MCG TABLET PO SCH (06:33)
[2018-11-27 06:59] VITALS: PULSE 76; TEMP 97.9; O2SAT 94
[2018-11-27 07:30] LABS: INR 2.1 (0.9-1.1); Prothrombin Time 20.5 Seconds (9.0-12.0)
[2018-11-27 07:56] LABS: BUN Creatinine Ratio 26.8 (10-20); Calcium 8.8 mg/dl (8.5-10.1); Est GFR (African American) 48.7; Potassium 3.7 mmol/L (3.5-5.1)
[2018-11-27 08:07] LABS: Thyroid Stimulating Hormone 0.281 uIu/ml (0.300-4.500)
[2018-11-27] MEDS: WARFARIN SOD 5 MG TAB PO SCH (08:41)
[2018-11-27] MEDS ORDERED: Nursing to Pharmacy Communication ONE (08:42)
[2018-11-27] MEDS: dilTIAZem ER 120 MG CAPCR PO SCH (08:47)
[2018-11-27] MEDS: DOCUSATE SODIUM/SENNA 50/8.6MG TAB PO SCH (08:47)
[2018-11-27] MEDS: INSULIN ASPART 100 UNITS/ML 3 ML PEN SC SCH (08:49)
[2018-11-27] MEDS ORDERED: WARFARIN SOD 2 MG TAB PO SCH (09:00)
[2018-11-27] MEDS: HEPARIN SODIUM/DEXTROSE 25,000 UNITS/500 ML BAG IV SCH (09:19)
[2018-11-27 10:15] VITALS: BP 133/70
[2018-11-27] MEDS: FUROSEMIDE 20 MG TAB PO SCH (10:15)
[2018-11-27] MEDS: ASPIRIN 81 MG ECTAB PO SCH (10:16)
[2018-11-27] MEDS: POTASSIUM CITRATE 10 MEQ TAB PO SCH (10:16)
[2018-11-27] MEDS: METOPROLOL TARTRATE 25 MG TAB PO SCH (10:16)
[2018-11-27] MEDS: MAGNESIUM HYDROXIDE SUSP 30 ML UDC PO SCH (10:17)
--- NOTE | 2018-11-27 11:21 | Discharge Summary ---
PRINCIPAL DIAGNOSIS: Incisional hernia. PROCEDURE: The patient underwent laparoscopic incisional hernia repair. HISTORY OF PRESENT ILLNESS: The patient is a 73-year-old female with an incisional hernia, brought into the hospital on 11/25/2018 where she underwent laparoscopic incisional hernia repair. She tolerated the procedure well and has done well in the hospital. She was kept on IV heparin and begun back on her Coumadin. She is felt stable for discharge home today to be followed in the surgical clinic next week.
== END 2018-11-27 11:03 | disposition home or self-care (01) | DRG 354 ==
LOC: ASU 05:06 → 2S 09:08 → 3W 11-26 09:46

== ENCOUNTER 2022-08-18 22:59 | Inpatient (IN) ==
--- NOTE | 2022-08-18 23:16 | Emergency Department Note ---
Impression & Plan Acute congestive heart failure, Hypoxia, Left bundle branch block ED Provider Note Name: OTILIO SUNSHINE Age: 77 Sex: F Arrives Via: Ambulance Informant: Patient, EMS, ED Provider: Bridger Loja MD Chief Complaint: Respiratory distress Impression: As per impressions above Medical Decision Makin-year-old female arrives for evaluation of shortness of breath gradually worsening over the last few days severely worse this evening. She does note that she had fever and generalized illness for the last few days thus had not been taking her Lasix. On examination patient appears in fluid overloaded state. She is doing much better on nasal cannula here. She has a chest x-ray which shows bilateral congestive failure without clear evidence of infiltrate. She has labs consistent with an elevated BNP. Respiratory panel is negative, white count is not significantly elevated and lactic acid is normal along with procalcitonin. Blood cultures were sent but I do not feel that she is septic at this time. Patient was given IV Lasix and hospitalist consulted for further management. I do not feel this is consistent with PE as she is already on anticoagulants. Of note EKG shows what appears to be a left bundle branch block. In the setting of a mildly elevated troponin ACS is always a concern however she is not having any active chest pain and is doing well on just nasal cannula O2. We will treat Triage/Nursing Notes reviewed by Me External chart reviewed by me Differentials:chf, pneumonia, copd, viral infection, pneumothorax, sepsis, amongst others. Vital Signs: reviewed and remarkable for hypoxia Interventions: lasix 40mg iv Labs:Reviewed and remarkable for elevated bnp Imaging:X ray results are stated below per my interpretation: Chest: 1 view: congestive failure findings EKG:Per My Interpretation: Indication shob: afib RVR 106 bpm, qtc 552 with left bundle branch block. No Ectopy. No Ischemia. Compared to EKG 12/11/19 patient now appears to have a left bundle branch block. Cardiac/Tele Monitoring: Cardiac Monitoring: An Order was placed for continuous cardiac monitoring. The monitor shows a rate of 80 with a afib rhythm. Consults:DrGovindasamy Plan: Disposition:Hospitalization. Condition: Good History of Present Illness:77-year-old female arrives for evaluation of shortness of breath. Patient with worsening shortness of breath over the last few days. Patient notes she has been having fevers, chills, illness and cough since she returned from traveling to [place] to see grandchildren. Patient admits she has not been taking her Lasix due to being traveling as well as not feeling well. This afternoon worsening breathing to the point where EMS was called. Patient with oxygenation of 80% on room air which did eventually improved to mid 90s on a nonrebreather. Patient states she feels much better after this. She does feel that her legs are more swollen than normal. Does note that there was some associated chest pain and thus EMS did give her some nitro with feeling that she is in heart failure as well. Denies any specific headache, vomiting, abdominal pain, back pain or other concerning signs or symptoms. Past History:See Below Home Medications:See Below Allergies:sulfa Vitals:Blood Pressure: 143/77, Pulse 99, RR 24, T 36.8C, O2 91% on 6L NC Physical Exam: GENERAL: Patient is unwell appearing and in mild distress. RESPIRATORY: Moderate dyspnea/tachypnea with diffuse wet rhonchi/crackles throughout CARDIOVASCULAR: Irregular. GASTROINTESTINAL: Abdomen soft, non-tender, no peritonitis.Slight bruise mid abdomen consistent with insulin injection EXTREMITIES: Normal motion all extremities, no cyanosis, 4+ pitting lower leg edema. NEUROLOGIC: Alert and oriented, no acute focal neurologic deficit appreciated SKIN: No rash, no jaundice, no diaphoresis. PSYCH: Appropriate GCS: 15 ED Course: Times/Reassessments: Patient is vastly improved on nasal cannula O2 without any further complaints denying any chest pain. Bridger Loja MD Past Med/Surg History Medical History (Updated 08/19/22 @ 07:10 by Bridger Loja MD) A-fib On Warfarin>FOLLOWED DR. BUCIO Aortic stenosis Atrial flutter Chronic diastolic congestive heart failure Colon polyps Coronary artery disease S/P CABG x 1 with AVR 2017. Diabetic peripheral neuropathy History of loop recorder Implanted AND REMOVED Hx of malignant melanoma of skin s/p simple excision Hyperlipemia Hypertension Hypothyroidism Obesity, morbid, BMI 40.0-49.9 Pulmonary hypertension Seasonal allergies Type 2 diabetes mellitus Vitamin D deficiency Surgical History (Updated 05/24/22 @ 18:58 by Yamileth Salazar MD) H/O aortic valve replacement 2017 GAVIN - BOVINE ALSO HAD CABG X1 VESSEL H/O cardiac catheterization [facility] - PRIOR TO 2017 SURGERY History of carpal tunnel release of both wrists History of colonoscopy History of partial hysterectomy History of transesophageal echocardiography ([facility]) PRIOR TO SURGERY 2016 Hx of cyst of breast s/p excision Hx of right cataract extraction Hx of tonsillectomy S/P CABG (coronary artery bypass graft) Status post hernia repair (11/24/18) Umbilical hernia with multiple defects with surgimesh 11/24/18 Dr. Chapman [place] teeth removed Family History Mother Family history of diabetes mellitus Grandmother (Maternal) Family history of diabetes mellitus Grandmother (Paternal) Family history of diabetes mellitus Aunt Family history of diabetes mellitus Uncle Family history of diabetes mellitus Father FHx: colon cancer Other FHx: esophageal cancer FHx: heart disease No family history of adverse response to anesthesia Social History Smoking Status: Never smoker Second Hand Exposure: No; Do You Dip or Chew Tobacco: No; Tobacco Cessation Education Requested by Patient: No Hx Alcohol Use: No Hx Substance Use: No Preferred Language: Swazi Communication Ability: Effective Visual Impairment: No Limitations Pipe Layer Helper Required: No Beliefs That Will Affect Care: None marital status: Current Living Situation: Spouse Other Information That Helps Us Care for You: No Feels Safe at Home: Yes Safety Concerns: Feels Safe At This Time caffeine: No Seatbelt Use: always Assistive Devices: Walker Allergies Allergies Allergy/AdvReac Type Severity Reaction Status Date / Time Sulfa (Sulfonamide Allergy Severe ANAPHYLAXIS Verified 08/19/22 00:43 Antibiotics) Home Meds Home Medications Medication Instructions Recorded Confirmed aspirin 81 mg tablet,delayed 81 mg PO QPM ##0 10/19/18 08/19/22 release (Michael Low Dose Aspirin) azelastine 205.5 mcg (0.15 %) 1 sprays intranasal DAILY PRN 10/22/18 08/19/22 nasal spray ALLERGIES insulin regular human 100 unit/mL 6 - 8 unit subcut TIDM 11/27/19 08/19/22 injection solution (Novolin R Regular U-100 Insulin) insulin NPH isoph U-100 human 100 12 - 16 unit subcut QPM 05/12/22 06/04/23 unit/mL subcutaneous suspension (Novolin N NPH U-100 Insulin isophane) acetaminophen 325 mg capsule 650 mg PO QID PRN pain 07/16/22 08/19/22 bumetanide 2 mg tablet 3 mg PO BID 08/19/22 08/19/22 cetirizine 10 mg tablet 10 mg PO QAM PRN Allergy Symptoms 08/19/22 08/19/22 levothyroxine 150 mcg tablet 150 mcg PO DAILYBB 08/19/22 08/19/22 warfarin 2 mg tablet 1 mg PO 3XWK 08/19/22 08/19/22 warfarin 2 mg tablet 2 mg PO 4XWK 08/19/22 08/19/22 Previous Rx's Medication Instructions Recorded pravastatin 80 mg tablet 80 mg PO HS #90 tabs 06/05/21 potassium citrate 10 mEq (1,080 1,080 mg PO BID #60 tabs 07/19/21 mg) tablet,extended release metoprolol succinate 25 mg 25 mg PO HS #90 tabs 10/25/21 tablet,extended release 24 hr allopurinol 100 mg tablet 100 mg PO DAILY #90 tabs 04/17/22 ergocalciferol (vitamin D2) 1,250 50,000 unit PO MONTHLY #4 caps 04/17/22 mcg (50,000 unit) capsule diltiazem HCl 60 mg tablet 60 mg PO HS #90 tabs 04/18/22 metformin 500 mg tablet,extended 1,000 mg PO BID #360 tabs 06/12/22 release 24 hr diltiazem HCl 240 mg capsule,24 240 mg PO QAM #90 caps 07/05/22 hr,extended release (Tiazac) Wheelchair (Manual) #1 ea 07/12/22 Results & Data (ED) Vital Signs Vital Signs - 24 hr 08/18/22 23:05 08/18/22 23:05 08/18/22 23:10 Temperature 36.8 C Temperature Source Oral Pulse Rate 102 H Pulse Rate from SpO2 Sensor Respiratory Rate 28 H Respiratory Effort / Characteristics SOB on Exertion Tripoding Short of Breath SOB on Exertion Blood Pressure 119/77 Blood Pressure Mean 91 Pulse Oximetry 88 L 88 L Oxygen Delivery Method Room Air Room Air Nasal Cannula Oxygen Flow Rate Sepsis Recent Fever Within 48 Hours No Sepsis New/Unexplained Change in Mental Status No Sepsis Action Taken by Nursing Physician Notified Oxygen Flow Rate - Titration 5 Pulse Oximetry Post Tiitration 96 08/18/22 23:08 08/18/22 23:10 08/18/22 23:10 Temperature Temperature Source Pulse Rate 100 H 102 H Pulse Rate from SpO2 Sensor 97 H 104 H Respiratory Rate 35 H 16 Respiratory Effort / Characteristics Blood Pressure 143/77 H Blood Pressure Mean 104 Pulse Oximetry 93 93 Oxygen Delivery Method Oxygen Flow Rate 5 5 Sepsis Recent Fever Within 48 Hours Sepsis New/Unexplained Change in Mental Status Sepsis Action Taken by Nursing Oxygen Flow Rate - Titration Pulse Oximetry Post Tiitration 08/18/22 23:30 08/18/22 23:30 08/19/22 00:00 Temperature Temperature Source Pulse Rate 109 H Pulse Rate from SpO2 Sensor 110 H Respiratory Rate 40 H Respiratory Effort / Characteristics Blood Pressure 119/77 117/66 Blood Pressure Mean 91 88 Pulse Oximetry 94 Oxygen Delivery Method Oxygen Flow Rate 5 Sepsis Recent Fever Within 48 Hours Sepsis New/Unexplained Change in Mental Status Sepsis Action Taken by Nursing Oxygen Flow Rate - Titration Pulse Oximetry Post Tiitration 08/19/22 00:00 08/19/22 00:30 08/19/22 00:30 Temperature Temperature Source Pulse Rate 92 H 92 H Pulse Rate from SpO2 Sensor 97 H 91 H Respiratory Rate 31 H 34 H Respiratory Effort / Characteristics Blood Pressure 126/77 Blood Pressure Mean 102 Pulse Oximetry 95 94 Oxygen Delivery Method Oxygen Flow Rate 5 5 Sepsis Recent Fever Within 48 Hours Sepsis New/Unexplained Change in Mental Status Sepsis Action Taken by Nursing Oxygen Flow Rate - Titration Pulse Oximetry Post Tiitration Laboratory Data 08/18/22 23:05 08/18/22 23:05 Lab Results 08/18/22 08/18/22 08/18/22 Range/Units 23:05 23:05 23:05 WBC 10.55 (4.8-10.8) K/ul RBC 3.89 L (4.20-5.40) M/uL Hgb 11.2 L (12.0-16.0) g/dl Hct 34.8 L (37.0-47.0) % MCV 89.5 (80.0-100.0) fL MCH 28.8 (25.0-34.0) pg MCHC 32.2 (32.0-36.0) g/dL RDW Std Deviation 52.5 H (36.4-46.3) fL RDW Coeff of [place] 16.1 H (11.5-14.5) % Plt Count 217 (130-400) K/uL MPV 10.7 (9.4-12.4) fL Immature Gran % (Auto) 0.4 % Neut % (Auto) 80.7 % Lymph % (Auto) 6.2 % [place] % (Auto) 11.8 % Eos % (Auto) 0.4 % Baso % (Auto) 0.5 % Neut # (Auto) 8.53 H (1.40-6.50) K/uL Lymph # (Auto) 0.65 L (1.2-3.4) K/uL [place] # (Auto) 1.24 H (0.11-0.59) K/uL Eos # (Auto) 0.04 (0-0.50) K/uL Baso # (Auto) 0.05 (0-0.2) K/uL Immature Gran # (Auto) 0.04 (0.01-0.20) K/uL Sodium 140 (136-145) mmol/L Potassium 3.8 (3.5-5.1) mmol/L Chloride 103 (98-107) mmol/L Carbon Dioxide 24 (21-32) mmol/L Anion Gap 13 H (3-11) BUN 31 H (6-23) mg/dl Creatinine 1.28 H (0.6-1.2) mg/dl Est Cr Clr Drug Dosing Not Reportable Est GFR ( Amer) 47.4 ml/min Est GFR (Non-Af Amer) 40.9 ml/min BUN/Creatinine Ratio 24.2 H (10-20) Glucose 237 H (70-99(Fasting)) mg/dl Lactate 1.5 (0.4-2.0) mmol/L Calcium 9.7 (8.6-10.3) mg/dl Magnesium 1.9 (1.7-2.4) mg/dl Total Bilirubin 1.1 H (0.2-1.0) mg/dl Direct Bilirubin 0.5 H (0-0.2) mg/dl AST 9 L (13-39) U/L ALT 9 (7-52) U/L Alkaline Phosphatase 135 H (34-104) U/L Troponin I High Sens 19.2 H (0-14) pg/ml B-Natriuretic Peptide (0-100) pg/ml Total Protein 8.0 (6.0-8.3) gm/dl Albumin 4.1 (3.4-5.0) gm/dl Procalcitonin (0-0.5) ng/ml Urine Color Urine Appearance (Clear) Urine pH (4.5-7.5) Ur Specific Theodore (1.000-1.030) Urine Protein (Negative) Urine Glucose (UA) (Negative) Urine Ketones (Negative) Urine Blood (Negative) Urine Nitrite (Negative) Urine Bilirubin (Negative) Urine Urobilinogen (Negative) Ur Leukocyte Esterase (Negative) Urine WBC (Auto) (0-5) /hpf Urine RBC (Auto) (0-4) /hpf U Hyaline Cast (Auto) (0-5) /lpf U Epithel Cells (Auto) (0-5) /lpf Urine Bacteria (Auto) (Negative) Adenovirus (PCR) (NotDetected) B. pertussis DNA (PCR) (NotDetected) B.parapertussis DNA PCR (NotDetected) C. pneumoniae DNA (PCR) (NotDetected) Coronavirus OC43 (PCR) (NotDetected) Coronavirus HKU1 (PCR) (NotDetected) Coronavirus 229E (PCR) (NotDetected) SARS-CoV-2 (PCR) (NotDetected) Coronavirus NL63 (PCR) (NotDetected) Human Metapneumovir PCR (NotDetected) Influenza Type A (PCR) (NotDetected) Influenza Type B (PCR) (NotDetected) M. pneumoniae (PCR) (NotDetected) Parainfluenza 1 (PCR) (NotDetected) Parainfluenza 2 (PCR) (NotDetected) Parainfluenza 3 (PCR) (NotDetected) Parainfluenza 4 (PCR) (NotDetected) RSV (PCR) (NotDetected) Entero/Rhino (PCR) (NotDetected) 08/18/22 08/18/22 08/18/22 Range/Units 23:05 23:05 23:05 WBC (4.8-10.8) K/ul RBC (4.20-5.40) M/uL Hgb (12.0-16.0) g/dl Hct (37.0-47.0) % MCV (80.0-100.0) fL MCH (25.0-34.0) pg MCHC (32.0-36.0) g/dL RDW Std Deviation (36.4-46.3) fL RDW Coeff of [place] (11.5-14.5) % Plt Count (130-400) K/uL MPV (9.4-12.4) fL Immature Gran % (Auto) % Neut % (Auto) % Lymph % (Auto) % [place] % (Auto) % Eos % (Auto) % Baso % (Auto) % Neut # (Auto) (1.40-6.50) K/uL Lymph # (Auto) (1.2-3.4) K/uL [place] # (Auto) (0.11-0.59) K/uL Eos # (Auto) (0-0.50) K/uL Baso # (Auto) (0-0.2) K/uL Immature Gran # (Auto) (0.01-0.20) K/uL Sodium (136-145) mmol/L Potassium (3.5-5.1) mmol/L Chloride (98-107) mmol/L Carbon Dioxide (21-32) mmol/L Anion Gap (3-11) BUN (6-23) mg/dl Creatinine (0.6-1.2) mg/dl Est Cr Clr Drug Dosing Est GFR ( Amer) ml/min Est GFR (Non-Af Amer) ml/min BUN/Creatinine Ratio (10-20) Glucose (70-99(Fasting)) mg/dl Lactate (0.4-2.0) mmol/L Calcium (8.6-10.3) mg/dl Magnesium (1.7-2.4) mg/dl Total Bilirubin (0.2-1.0) mg/dl Direct Bilirubin (0-0.2) mg/dl AST (13-39) U/L ALT (7-52) U/L Alkaline Phosphatase (34-104) U/L Troponin I High Sens (0-14) pg/ml B-Natriuretic Peptide 318 H (0-100) pg/ml Total Protein (6.0-8.3) gm/dl Albumin (3.4-5.0) gm/dl Procalcitonin 0.19 (0-0.5) ng/ml Urine Color Urine Appearance (Clear) Urine pH (4.5-7.5) Ur Specific Theodore (1.000-1.030) Urine Protein (Negative) Urine Glucose (UA) (Negative) Urine Ketones (Negative) Urine Blood (Negative) Urine Nitrite (Negative) Urine Bilirubin (Negative) Urine Urobilinogen (Negative) Ur Leukocyte Esterase (Negative) Urine WBC (Auto) (0-5) /hpf Urine RBC (Auto) (0-4) /hpf U Hyaline Cast (Auto) (0-5) /lpf U Epithel Cells (Auto) (0-5) /lpf Urine Bacteria (Auto) (Negative) Adenovirus (PCR) Not Detected (NotDetected) B. pertussis DNA (PCR) Not Detected (NotDetected) B.parapertussis DNA PCR Not Detected (NotDetected) C. pneumoniae DNA (PCR) Not Detected (NotDetected) Coronavirus OC43 (PCR) Not Detected (NotDetected) Coronavirus HKU1 (PCR) Not Detected (NotDetected) Coronavirus 229E (PCR) Not Detected (NotDetected) SARS-CoV-2 (PCR) Not Detected (NotDetected) Coronavirus NL63 (PCR) Not Detected (NotDetected) Human Metapneumovir PCR Not Detected (NotDetected) Influenza Type A (PCR) Not Detected (NotDetected) Influenza Type B (PCR) Not Detected (NotDetected) M. pneumoniae (PCR) Not Detected (NotDetected) Parainfluenza 1 (PCR) Not Detected (NotDetected) Parainfluenza 2 (PCR) Not Detected (NotDetected) Parainfluenza 3 (PCR) Not Detected (NotDetected) Parainfluenza 4 (PCR) Not Detected (NotDetected) RSV (PCR) Not Detected (NotDetected) Entero/Rhino (PCR) Not Detected (NotDetected) 08/18/22 Range/Units 23:15 WBC (4.8-10.8) K/ul RBC (4.20-5.40) M/uL Hgb (12.0-16.0) g/dl Hct (37.0-47.0) % MCV (80.0-100.0) fL MCH (25.0-34.0) pg MCHC (32.0-36.0) g/dL RDW Std Deviation (36.4-46.3) fL RDW Coeff of [place] (11.5-14.5) % Plt Count (130-400) K/uL MPV (9.4-12.4) fL Immature Gran % (Auto) % Neut % (Auto) % Lymph % (Auto) % [place] % (Auto) % Eos % (Auto) % Baso % (Auto) % Neut # (Auto) (1.40-6.50) K/uL Lymph # (Auto) (1.2-3.4) K/uL [place] # (Auto) (0.11-0.59) K/uL Eos # (Auto) (0-0.50) K/uL Baso # (Auto) (0-0.2) K/uL Immature Gran # (Auto) (0.01-0.20) K/uL Sodium (136-145) mmol/L Potassium (3.5-5.1) mmol/L Chloride (98-107) mmol/L Carbon Dioxide (21-32) mmol/L Anion Gap (3-11) BUN (6-23) mg/dl Creatinine (0.6-1.2) mg/dl Est Cr Clr Drug Dosing Est GFR ( Amer) ml/min Est GFR (Non-Af Amer) ml/min BUN/Creatinine Ratio (10-20) Glucose (70-99(Fasting)) mg/dl Lactate (0.4-2.0) mmol/L Calcium (8.6-10.3) mg/dl Magnesium (1.7-2.4) mg/dl Total Bilirubin (0.2-1.0) mg/dl Direct Bilirubin (0-0.2) mg/dl AST (13-39) U/L ALT (7-52) U/L Alkaline Phosphatase (34-104) U/L Troponin I High Sens (0-14) pg/ml B-Natriuretic Peptide (0-100) pg/ml Total Protein (6.0-8.3) gm/dl Albumin (3.4-5.0) gm/dl Procalcitonin (0-0.5) ng/ml Urine Color Dark Yellow Urine Appearance Clear (Clear) Urine pH 5.0 (4.5-7.5) Ur Specific Theodore 1.015 (1.000-1.030) Urine Protein 1+ H (Negative) Urine Glucose (UA) Negative (Negative) Urine Ketones Trace H (Negative) Urine Blood Negative (Negative) Urine Nitrite Negative (Negative) Urine Bilirubin 1+ H (Negative) Urine Urobilinogen Negative (Negative) Ur Leukocyte Esterase Negative (Negative) Urine WBC (Auto) 1-5 (0-5) /hpf Urine RBC (Auto) 0-4 (0-4) /hpf U Hyaline Cast (Auto) 1-5 (0-5) /lpf U Epithel Cells (Auto) 10-20 H (0-5) /lpf Urine Bacteria (Auto) Negative (Negative) Adenovirus (PCR) (NotDetected) B. pertussis DNA (PCR) (NotDetected) B.parapertussis DNA PCR (NotDetected) C. pneumoniae DNA (PCR) (NotDetected) Coronavirus OC43 (PCR) (NotDetected) Coronavirus HKU1 (PCR) (NotDetected) Coronavirus 229E (PCR) (NotDetected) SARS-CoV-2 (PCR) (NotDetected) Coronavirus NL63 (PCR) (NotDetected) Human Metapneumovir PCR (NotDetected) Influenza Type A (PCR) (NotDetected) Influenza Type B (PCR) (NotDetected) M. pneumoniae (PCR) (NotDetected) Parainfluenza 1 (PCR) (NotDetected) Parainfluenza 2 (PCR) (NotDetected) Parainfluenza 3 (PCR) (NotDetected) Parainfluenza 4 (PCR) (NotDetected) RSV (PCR) (NotDetected) Entero/Rhino (PCR) (NotDetected) Administered Medications Guaifenesin/Dextromethorphan (Guaifenesin/Dextrom Syrup 100mg/10mg 5ml Udc) 5 ml PO Q6H PRN PRN Reason: Cough Stop: 09/18/22 02:49 Last Admin: 08/19/22 03:21 Dose: 5 ml Documented By: CHANCE Insulin Aspart (Insulin Aspart Per Unit Charge) 0 units SC ACHS [facility] Stop: 09/18/22 02:29 Last Admin: 08/19/22 02:31 Dose: 7 units Documented By: CHANCE Co-signed By: YESENIA Insulin Glargine (Lantus Per Unit Charge) 15 units SC HS [facility] Stop: 09/18/22 02:29 Last Admin: 08/19/22 02:31 Dose: 15 units Documented By: CHANCE Co-signed By: YESENIA Levothyroxine Sodium (Levothyroxine Sodium 150 Mcg Tablet) 150 mcg PO DAILYBB [facility] Stop: 09/18/22 06:29 Last Admin: 08/19/22 05:34 Dose: 150 mcg Documented By: CHANCE Discontinued Medications Furosemide (Furosemide 40 Mg/4 Ml Vial) 40 mg IV ONE ONE Stop: 08/19/22 00:16 Last Admin: 08/19/22 00:25 Dose: 40 mg Documented By: AWAIS Discharge Plan Visit Data Chief Complaint: Respiratory Problems Stated Complaint: SOB, Congestion ED Provider: Bridger Loja Discharge Problem: Acute congestive heart failure, Hypoxia, Left bundle branch block Patient Disposition: Admitted As Inpatient Discharge Instructions Interventions: ED Discharge Assessment Last Done: 08/19/22 01:40
[2022-08-18 23:25] LABS: Appearance Urine Clear (Clear); Bacteria Urine Automated Negative (Negative); Blood Urine Negative (Negative); Color Urine Dark Yellow; Glucose Urine UA Negative (Negative); Ketones Urine Trace (Negative); Leukocyte Esterase Urine Negative (Negative); Nitrite Urine Negative (Negative); Protein Urine 1+ (Negative); RBC Urine Automated 0-4 /hpf (0-4); Specific Gravity Urine 1.015 (1.000-1.030); Urobilinogen Urine Negative (Negative)
[2022-08-18 23:33] LABS: Basophils # (auto) 0.05 K/uL (0-0.2); Basophils % (auto) 0.5 %; Eosinophils # (auto) 0.04 K/uL (0-0.50); Eosinophils % (auto) 0.4 %; Hematocrit (blood only) 34.8 % (37.0-47.0); Hemoglobin 11.2 g/dl (12.0-16.0); Immature Granulocytes # (auto) 0.04 K/uL (0.01-0.20); Immature Granulocytes % (auto) 0.4 %; Lymphocytes # (auto) 0.65 K/uL (1.2-3.4); Lymphocytes % (auto) 6.2 %; Mean Corpuscular Hemoglobin 28.8 pg (25.0-34.0); Mean Corpuscular Hgb Conc 32.2 g/dL (32.0-36.0); Mean Corpuscular Volume 89.5 fL (80.0-100.0); Mean Platelet Volume 10.7 fL (9.4-12.4); Monocytes # (auto) 1.24 K/uL (0.11-0.59); Monocytes % (auto) 11.8 %; Neutrophils # (auto) 8.53 K/uL (1.40-6.50); Neutrophils % (auto) 80.7 %; Platelet Count 217 K/uL (130-400); RDW Coefficient of Variation 16.1 % (11.5-14.5); RDW Standard Deviation 52.5 fL (36.4-46.3); Red Blood Count 3.89 M/uL (4.20-5.40); White Blood Count 10.55 K/ul (4.8-10.8)
[2022-08-18 23:41] LABS: Alanine Aminotransferase 9 U/L (7-52); Albumin Level 4.1 gm/dl (3.4-5.0); Alkaline Phosphatase 135 U/L (34-104); Anion Gap 13 (3-11); Aspartate Aminotransferase 9 U/L (13-39); BUN Creatinine Ratio 24.2 (10-20); Bilirubin Direct 0.5 mg/dl (0-0.2); Bilirubin,Total 1.1 mg/dl (0.2-1.0); Blood Urea Nitrogen 31 mg/dl (6-23); Calcium 9.7 mg/dl (8.6-10.3); Carbon Dioxide 24 mmol/L (21-32); Chloride 103 mmol/L (98-107); Est GFR (African American) 47.4 ml/min; Est GFR (Non-African American) 40.9 ml/min; Glucose 237 mg/dl (70-99(Fasting)); Magnesium 1.9 mg/dl (1.7-2.4); Potassium 3.8 mmol/L (3.5-5.1); Sodium 140 mmol/L (136-145)
[2022-08-18 23:45] LABS: Bilirubin Urine 1+ (Negative)
[2022-08-18 23:48] LABS: Troponin I High Sensitivity 19.2 pg/ml (0-14)
[2022-08-19 00:14] LABS: Adenovirus PCR Not Detected (NotDetected); Bordetella parapertussis PCR Not Detected (NotDetected); Bordetella pertussis PCR Not Detected (NotDetected); Chlamydia pneumoniae PCR Not Detected (NotDetected); Coronavirus 229E PCR Not Detected (NotDetected); Coronavirus CoV-2 (COVID19)PCR Not Detected (NotDetected); Coronavirus HKU1 PCR Not Detected (NotDetected); Coronavirus NL63 PCR Not Detected (NotDetected); Coronavirus OC43PCR Not Detected (NotDetected); Human Metapneumovirus PCR Not Detected (NotDetected); Influenza A PCR Not Detected (NotDetected); Influenza B PCR Not Detected (NotDetected); Mycoplasma pneumoniae PCR Not Detected (NotDetected); Parainfluenza Virus 1 PCR Not Detected (NotDetected); Parainfluenza Virus 2 PCR Not Detected (NotDetected); Parainfluenza Virus 3 PCR Not Detected (NotDetected); Parainfluenza Virus 4 PCR Not Detected (NotDetected); Respiratory Syncytial VirusPCR Not Detected (NotDetected); Rhinovirus/Enterovirus PCR Not Detected (NotDetected)
[2022-08-19] MEDS ORDERED: FUROSEMIDE 40 MG/4 ML VIAL IV ONE ×2 (00:15→11:33)
[2022-08-19] MEDS ORDERED: DEXTROSE 50% 50 ML SYRINGE IV PRN (02:00)
[2022-08-19] MEDS ORDERED: PHARMACY GLYCEMIC MGMT CONSULT PRN (02:00)
[2022-08-19] MEDS ORDERED: GLUCOSE 10 TAB/TUBE PO PRN (02:00)
[2022-08-19] MEDS ORDERED: NON-FORMULARY MEDICATION (Acetaminophen 325 mg capsule) PO PRN (02:00)
[2022-08-19] MEDS ORDERED: CARBOHYDRATES FOR HYPOGLYCEMIA PO PRN (02:00)
[2022-08-19] MEDS ORDERED: ALUMINUM/MAGNESIUM SUSP 30 ML UDC PO PRN (02:00)
[2022-08-19] MEDS ORDERED: GLUCAGON FOR INJ 1 MG VIAL SQ PRN (02:00)
[2022-08-19] MEDS ORDERED: GLUCOSE 40% GEL 15 GM TUBE PO PRN (02:00)
--- NOTE | 2022-08-19 02:06 | History & Physical Report ---
Date of Service August 19, 2022 Assessment & Plan (1) Acute CHF: Plan: Patient presents to ED with complaints of worsening shortness of breath Clinical presentation and physical exam consistent with volume overload and CHF exacerbation Echo done in July 08 shows patient has mildly dilated left ventricle with low normal systolic function EF 50 to 55% with no regional wall motion abnormalities and mild concentric LVH Along with severe LA dilatation bioprosthetic aortic valve with acceptable gradient mild to moderate pulm hypertension with estimated RVSP of 49 mmHg In the ED white count not elevated at 10.3 and lab data shows a BUN was 36 creatinine 1.3 with baseline between 1.2-1.5 Initial high sensitive troponin was 19.2 and subsequent was 17.5 Bio fire negative along with negative respiratory virus panel proBNP elevated at 318 Patient started on IV Lasix in ED with improvement of symptoms with brisk diuresis Continue CHF protocol with close monitoring of input output Initial chest x-ray preliminary report consistent with CHF-official report pending will place patient on empiric azithromycin as patient has cough symptoms but no pneumonic consolidation Check transthoracic echo (2) A-fib: Plan: Patient has a known history of A-fib on anticoagulation with warfarin Check daily PT/INR and target levels between 2-2.5 Continue metoprolol (3) S/P aortic valve replacement with bioprosthetic valve: Plan: Echo done in July 08 shows bioprosthetic aortic valve with acceptable gradient and moderate pulm hypertension with right ventricular systolic pressure of 49 Recheck transthoracic echo (4) Hypertension: Plan: Continue home dose of diltiazem along with metoprolol with hold parameters Monitor blood pressure trend and titrate meds as tolerated (5) Hypothyroidism: Plan: Continue levothyroxine 150 mcg daily Check TSH level (6) Hyperlipemia: Plan: Continue statin therapy with pravastatin 80 mg daily (7) Diabetes mellitus due to abnormal insulin: Plan: Patient will be placed on sliding scale coverage short acting insulin based on fingerstick monitoring Check hemoglobin A1c level Admission and Anticipated Discharge Date Admission Date: August 19, 2022 History of Present Illness Chief Complaint: Patient presents to ED with complaints of worsening shortness of breath Primary Care Provider: Yamileth Salazar MD This is a 77-year-old female with past medical history significant history of hypertension, hyperlipidemia, diabetes mellitus insulin-dependent, history of atrial fibrillation anticoagulated with warfarin, history of aortic stenosis and history of CHF who presents to the emergency department complaints of worsening shortness of breath brought in by EMS. Patient reports that she has been feeling a sensation of overall fatigue and having exertional dyspnea over the past 4 to 5 days. Patient also reports that she has been not been fully compliant with her diuretic dose that she has been traveling about a week ago. Patient reports that she has been feeling that her legs are more swollen over t he past few days patient also has been having subjective fever but intermittently with fatigue and cough symptoms as well. During present admission patient started feeling some intermittent chest heaviness with associated shortness of breath and hence he became concerned and EMS was called. EMS did place the patient on nonrebreather mask with oxygen supplementation and patient subsequently was feeling better upon arrival to ED. Patient denies any active vomiting or diarrhea. At the time my evaluation patient does not have any chest pain and reports feeling slightly better with supplemental oxygen and diuretics given in the ED. Allergies Allergy/AdvReac Type Severity Reaction Status Date / Time Sulfa (Sulfonamide Allergy Severe ANAPHYLAXIS Verified 08/19/22 00:43 Antibiotics) Home Medications Medication Instructions Recorded Confirmed Type aspirin 81 mg tablet,delayed 81 mg PO QPM ##0 10/19/18 08/19/22 History release (Michael Low Dose Aspirin) azelastine 205.5 mcg (0.15 %) 1 sprays intranasal DAILY PRN 10/22/18 08/19/22 History nasal spray ALLERGIES insulin regular human 100 unit/mL 6 - 8 unit subcut TIDM 11/27/19 08/19/22 History injection solution (Novolin R Regular U-100 Insulin) pravastatin 80 mg tablet 80 mg PO HS #90 tabs 06/05/21 08/19/22 Rx potassium citrate 10 mEq (1,080 1,080 mg PO BID #60 tabs 07/19/21 08/19/22 Rx mg) tablet,extended release insulin NPH isoph U-100 human 100 12 - 16 unit subcut QPM 07/27/21 08/19/22 History unit/mL subcutaneous suspension (Novolin N NPH U-100 Insulin isophane) metoprolol succinate 25 mg 25 mg PO HS #90 tabs 10/25/21 08/19/22 Rx tablet,extended release 24 hr allopurinol 100 mg tablet 100 mg PO DAILY #90 tabs 04/17/22 08/19/22 Rx ergocalciferol (vitamin D2) 1,250 50,000 unit PO MONTHLY #4 caps 04/17/22 08/19/22 Rx mcg (50,000 unit) capsule diltiazem HCl 60 mg tablet 60 mg PO HS #90 tabs 04/18/22 08/19/22 Rx metformin 500 mg tablet,extended 1,000 mg PO BID #360 tabs 06/12/22 08/19/22 Rx release 24 hr diltiazem HCl 240 mg capsule,24 240 mg PO QAM #90 caps 07/05/22 08/19/22 Rx hr,extended release (Tiazac) Wheelchair (Manual) #1 ea 07/12/22 07/30/22 Rx acetaminophen 325 mg capsule 650 mg PO QID PRN pain 07/16/22 08/19/22 History bumetanide 2 mg tablet 3 mg PO BID 08/19/22 08/19/22 History cetirizine 10 mg tablet 10 mg PO QAM PRN Allergy Symptoms 08/19/22 08/19/22 History levothyroxine 150 mcg tablet 150 mcg PO DAILYBB 08/19/22 08/19/22 History warfarin 2 mg tablet 1 mg PO 3XWK 08/19/22 08/19/22 History warfarin 2 mg tablet 2 mg PO 4XWK 08/19/22 08/19/22 History Past Med/Surg History Medical History (Updated 08/19/22 @ 07:10 by Bridger Loja MD) A-fib On Warfarin>FOLLOWED DR. BUCIO Aortic stenosis Atrial flutter Chronic diastolic congestive heart failure Colon polyps Coronary artery disease S/P CABG x 1 with AVR 2016. Diabetic peripheral neuropathy History of loop recorder Implanted AND REMOVED Hx of malignant melanoma of skin s/p simple excision Hyperlipemia Hypertension Hypothyroidism Obesity, morbid, BMI 40.0-49.9 Pulmonary hypertension Seasonal allergies Type 2 diabetes mellitus Vitamin D deficiency Surgical History (Updated 05/24/22 @ 18:58 by Yamileth Salazar MD) H/O aortic valve replacement 2017 [facility] ALSO HAD CABG X1 VESSEL H/O cardiac catheterization [facility] - PRIOR TO 2017 SURGERY History of carpal tunnel release of both wrists History of colonoscopy History of partial hysterectomy History of transesophageal echocardiography ([facility]) PRIOR TO SURGERY 2017 Hx of cyst of breast s/p excision Hx of right cataract extraction Hx of tonsillectomy S/P CABG (coronary artery bypass graft) Status post hernia repair (11/24/18) Umbilical hernia with multiple defects with surgimesh 11/24/18 Dr. Ari Morfindom teeth removed Family History Mother Family history of diabetes mellitus Grandmother (Maternal) Family history of diabetes mellitus Grandmother (Paternal) Family history of diabetes mellitus Aunt Family history of diabetes mellitus Uncle Family history of diabetes mellitus Father FHx: colon cancer Other FHx: esophageal cancer FHx: heart disease No family history of adverse response to anesthesia Social History Smoking Status: Never smoker Second Hand Exposure: No; Do You Dip or Chew Tobacco: No; Tobacco Cessation Education Requested by Patient: No Hx Alcohol Use: No Hx Substance Use: No Preferred Language: Greek Communication Ability: Effective Visual Impairment: No Limitations Chemical Technician Required: No Beliefs That Will Affect Care: None marital status: Current Living Situation: Spouse Other Information That Helps Us Care for You: No Feels Safe at Home: Yes Safety Concerns: Feels Safe At This Time caffeine: No Seatbelt Use: always Assistive Devices: Walker Review of Systems Review of Systems: Constitutional-patient reports generalized fatigue and subjective fever ENT-no blurred vision, no double vision, no epistaxis, no sore throat Respiratory-presents with shortness of breath noted with exertion. No wheezing Cardiac-some chest heaviness reported no palpitations, GI-no nausea, vomiting, diarrhea, melena, hematochezia -no urinary retention, no urinary incontinence, Musculoskeletal-no joint pain, no muscle tenderness Skin-no bruising, no rashes, no pruritus , Physical Exam Physical Exam: Head and ENT no thyroid enlargement trachea midline Cardiovascular S1-S2 are normal no S3 Lungs bilateral air entry fair few scattered rhonchi no wheezing Abdomen soft nondistended positive bowel sounds no rebound tenderness Extremity shows 1+ edema Neurologically no focal deficits Skin shows no rash no cyanosis Results & Data Results & Data Vital Signs (Past 12 Hours) Vital Signs Temp Pulse Resp BP Pulse Ox O2 Del Method O2 Flow Rate 08/19/22 01:30 90 23 91 5 08/19/22 01:30 139/68 08/19/22 01:00 90 32 H 92 5 08/19/22 01:00 148/72 H 08/19/22 00:30 92 H 34 H 94 5 08/19/22 00:30 126/77 08/19/22 00:00 92 H 31 H 95 5 08/19/22 00:00 117/66 08/19/22 01:37 87 08/18/22 23:30 109 H 40 H 94 5 08/18/22 23:30 119/77 08/18/22 23:10 143/77 H 08/18/22 23:10 102 H 16 93 5 08/18/22 23:08 100 H 35 H 93 5 08/18/22 23:10 88 L Room Air, Nasal Cannula 08/18/22 23:05 36.8 C 102 H 28 H 119/77 88 L Room Air Laboratory Results Short CBC 08/18/22 Range/Units 23:05 WBC 10.55 (4.8-10.8) K/ul Hgb 11.2 L (12.0-16.0) g/dl Hct 34.8 L (37.0-47.0) % Plt Count 217 (130-400) K/uL BMP 08/18/22 23:05 Sodium 140 Potassium 3.8 Chloride 103 Carbon Dioxide 24 BUN 31 H Creatinine 1.28 H Glucose 237 H Calcium 9.7 Liver Function 08/18/22 Range/Units 23:05 Total Bilirubin 1.1 H (0.2-1.0) mg/dl Direct Bilirubin 0.5 H (0-0.2) mg/dl AST 9 L (13-39) U/L ALT 9 (7-52) U/L Alkaline Phosphatase 135 H (34-104) U/L Albumin 4.1 (3.4-5.0) gm/dl Urine 08/18/22 Range/Units 23:15 Urine Color Dark Yellow Urine Appearance Clear (Clear) Urine pH 5.0 (4.5-7.5) Ur Specific [place] 1.015 (1.000-1.030) Urine Protein 1+ H (Negative) Urine Glucose (UA) Negative (Negative) Code Status & VTE Plan VTE Prophylaxis Plan VTE Prophylaxis will be ordered: Yes PG Care Time/CCT Total # of Minutes Spent Total Time Spent with Patient: Total time spent is greater than 50% in coordination of care (as documented) at patient's floor/unit and/or counseling patient: Coding Level of Care Code 52021 INT INP/OBS CARE 2/55MIN Diagnoses Acute CHF I50.9 A-fib I48.2 Atrial fibrillation type: permanent S/P aortic valve replacement with bioprosthetic valve Z95.3 Hypertension I10 Hypothyroidism E03.9 Hypothyroidism type: acquired Hyperlipemia E78.2 Hyperlipidemia type: mixed hyperlipidemia Diabetes mellitus due to abnormal insulin E13.9 (2) A-fib Atrial fibrillation type: permanent Qualified Code(s): I48.2 - Chronic atrial fibrillation (5) Hypothyroidism Hypothyroidism type: acquired Qualified Code(s): E03.9 - Hypothyroidism, unspecified (6) Hyperlipemia Hyperlipidemia type: mixed hyperlipidemia Qualified Code(s): E78.2 - Mixed hyperlipidemia
[2022-08-19] MEDS ORDERED: AZELASTINE HCL 0.1% NASAL 200 SPRAYS/27,400 MCG BTL PRN (02:14)
[2022-08-19] MEDS ORDERED: LANTUS PER UNIT CHARGE SC SCH ×2 (02:30→08:00)
[2022-08-19] MEDS: INSULIN ASPART PER UNIT CHARGE SC SCH ×5 (02:31→20:40)
[2022-08-19] MEDS: guaiFENesin/DEXTROM SYRUP 100MG/10MG 5ML UDC PO PRN (03:21)
[2022-08-19] MEDS: LEVOTHYROXINE SODIUM 150 MCG TABLET PO SCH (05:34)
[2022-08-19 07:30] LABS: Basophils # (auto) 0.03 K/uL (0-0.2); Basophils % (auto) 0.3 %; Eosinophils # (auto) 0.03 K/uL (0-0.50); Eosinophils % (auto) 0.3 %; Hemoglobin 11.2 g/dl (12.0-16.0); Immature Granulocytes # (auto) 0.04 K/uL (0.01-0.20); Immature Granulocytes % (auto) 0.4 %; Lymphocytes # (auto) 0.59 K/uL (1.2-3.4); Lymphocytes % (auto) 5.7 %; Mean Corpuscular Hemoglobin 28.3 pg (25.0-34.0); Mean Corpuscular Volume 88.4 fL (80.0-100.0); Mean Platelet Volume 10.3 fL (9.4-12.4); Monocytes # (auto) 1.19 K/uL (0.11-0.59); Monocytes % (auto) 11.5 %; Neutrophils % (auto) 81.8 %; Platelet Count 228 K/uL (130-400); RDW Coefficient of Variation 15.9 % (11.5-14.5); Red Blood Count 3.96 M/uL (4.20-5.40); White Blood Count 10.38 K/ul (4.8-10.8)
[2022-08-19 07:51] LABS: Estimated Average Glucose 157 mg/dl; Hemoglobin A1C 7.1 % (4.5-5.6)
[2022-08-19 07:51] LABS: BUN Creatinine Ratio 27.3 (10-20); Calcium 9.6 mg/dl (8.6-10.3); Creatinine Clr Calc Pharmacy 47.8 ml/min; Est GFR (African American) 45.6 ml/min; Est GFR (Non-African American) 39.4 ml/min; Potassium 3.9 mmol/L (3.5-5.1)
[2022-08-19] MEDS: guaiFENesin 600 MG TABCR PO SCH ×2 (08:08→20:39)
[2022-08-19] MEDS: AZITHROMYCIN 500 MG in DEXTROSE 5% 250 ML IV SCH (08:08)
[2022-08-19] MEDS: HEPARIN SOD 5,000 UNIT/0.5 ML VIAL SQ SCH ×2 (08:09→08:34)
[2022-08-19] MEDS: dilTIAZem HCL 240 MG CAPCR PO SCH (08:09)
[2022-08-19] MEDS: CETIRIZINE HCL 10 MG TABLET PO PRN (08:09)
[2022-08-19] MEDS: allopurinoL 100 MG TAB PO SCH (08:09)
[2022-08-19] MEDS: POTASSIUM CITRATE 10 MEQ TAB PO SCH ×2 (08:09→20:39)
--- NOTE | 2022-08-19 08:30 | XRay Report ---
XR chest 1V portable HISTORY: 77 years-old Female Sepsis acute sepsis COMPARISON: 12/11/2019 TECHNIQUE: AP view the chest FINDINGS: Cardiac silhouette is enlarged. Prior median sternotomy with cardiac valvular prosthesis in septal oc clusion device. No pneumothorax. Pulmonary vascular congestion with interstitial coarsening. Small pl eural effusions, left greater than right with bibasilar patchy consolidation. Degenerative changes of the shoulders and spine. IMPRESSION: 1. Cardiomegaly with mild pulmonary edema. 2. Small pleural effusions with patchy bibasilar consolidative opacities. Correlate clinically to exc lude pneumonia. ACT 112: Negative or not required by law. The above report was generated using voice recognition software. It may contain grammatical, syntax o r spelling errors. Electronically signed by: Tony Bradford M.D. 08/19/2022 8:29 AM
[2022-08-19] MEDS ORDERED: FUROSEMIDE INJ 20 MG/2 ML VIAL IV SCH (09:00)
[2022-08-19 09:14] LABS: INR 5.4 (0.9-1.1); Prothrombin Time 52.8 Seconds (9.0-12.0)
[2022-08-19] MEDS ORDERED: ONDANSETRON INJ 2 MG/ML 2 ML VIAL IV PRN (09:31)
[2022-08-19] MEDS: ALBUT/IPRATROP 3MG/0.5MG NEB 3 ML VIAL NEB SCH ×3 (11:02→20:08)
[2022-08-19] MEDS ORDERED: SODIUM CHLORIDE 0.65% NA SOLN 45 ML (OCEAN) ONE (12:01)
[2022-08-19] MEDS ORDERED: BUMETANIDE 4 MG in SYRINGE 0 ML IV ONE (14:10)
--- NOTE | 2022-08-19 14:19 | Cardiology Consultation ---
Date of Consultation August 19, 2022 Assessment & Plan (1) Acute on chronic heart failure with preserved ejection fraction (HFpEF): (2) Acute respiratory failure with hypoxia: (3) S/P aortic valve replacement with bioprosthetic valve: (4) Mitral regurgitation: (5) CAD in poarch artery: (6) Atrial flutter: (7) A-fib: (8) Hypertension: (9) S/P CABG (coronary artery bypass graft): Plan ASSESSMENT/PLAN: 1. Acute on chronic heart failure with preserved EF: She appears severely hypervolemic. She is not making significant urine output. Initial diuretic less than outpatient regimen. Bumex 4 mg IV x1 ordered at the time of consultation. Discussed with nursing staff and no significant urine output. Diuril 250 mg IV x1 ordered. Nitro paste ordered for preload reduction and hypertension. She refused BiPAP. Recommended Bumex drip if no significant urine output. Strict I's and O's. Daily weights. 2. Acute respiratory failure with hypoxia: Respiratory status worsened during echo. Echo was terminated early. High flow nasal cannula was given. She refused BiPAP despite discussion with nursing staff and then later critical care team, Dr. Shannon. During consultation, discussed the fact that intubation could be necessary. After her acute decompensation, this was once again discussed by Dr. Shanonn. She refused BiPAP or intubation and then became DNR/DNI. 3. CAD s/p CABG (ANDRADE to LAD): Intermittent chest discomfort in the setting of CHF exacerbation. High-sensitivity troponin despite prolonged episodes, does not suggest acute coronary syndrome. Will reassess symptoms when volume status improves. Continue beta-wing and statin therapy. 4. Aortic valve replacement: Recent echo demonstrated appropriately functioning bioprosthetic aortic valve (06/29/2022). SBE prophylaxis for dental procedures. 5. Atrial flutter/fibrillation: Chronic issue and likely permanent. Continue beta-wing and diltiazem. Heart rate elevated in the setting of CHF exacerbation. Continue anticoagulation for stroke risk reduction. She has undergone left atrial appendage ablation with 35mm atrial clip. She has declined NOAC. 6. Hypertension: Should improve with diuresis. Nitroglycerin applied. 7. Mitral regurgitation: Not fully interrogated on today's echo due to decompensation. Can be evaluated further when able to tolerate echo. 8. Disposition: Very ill and guarded prognosis. She declines more aggressive respiratory support. Discussed with critical care team, Dr. Shannon. Appreciate his consultation as it appeared as though she would require ICU care but she is now DNR/DNI and does not wish to pursue more aggressive oxygenation methods. Discussed multiple times with nursing staff and also primary hospitalist, Dr. Holder. Recommended Bumex drip if no significant urine output. She is now making urine, prior to Bumex drip with approximately 250 mL over 20 or 30 minutes time, which is a big improvement from earlier today. She looks more comfortable and states that she feels much better but is still requiring high flow nasal cannula. 65 minutes critical care time, including [id number] time, counseling patient, coordinating care, managing respiratory distress, reviewing records, discussing with primary hospitalist service and consultants, discussing with nursing staff. Cardiology will continue to follow. History of Present Illness Reason for Consultation: CHF exacerbation, AVR Requesting Physician: Bob Herzog Attending Physician: Diogo Holder MD History of Present Illness Mrs. Bernabe (Jayshree) is a very pleasant 77-year-old female with a history significant for CAD status post CABG x 1, severe aortic stenosis status post bioprosthetic aortic valve replacement, heart failure with preserved EF, atrial fibrillation/flutter, diabetes, hypertension, CKD, and dyslipidemia. She has had the following studies/procedures: 1. Cardiac catheterization 07/09/2007: Proximal LAD 40-50%. Small D1 80-90%. Mid LAD 50%. Mid circumflex 30-40%. OM3 30% in a branch vessel. Codominant system. Mid RCA 30-40%. Distal RCA 30-40%. Pulmonary artery pressure 50/22 mmHg. Mean wedge pressure 22-24. Mild aortic stenosis. 2. Loop recorder implantation approximately 2013. 3. Echo 10/02/2016: Normal LV size and systolic function. EF 60-65%. No regional wall motion abnormalities. Severe concentric left ventricular hypertrophy. Moderate left atrial dilation. Severe aortic stenosis with trace regurgitation (peak velocity 4.3 m/sec; mean gradient 46mmHg; dimensionless index 0.18; LUIS MIGUEL 0.6 cm2). Mild MR. Technically difficult study. 4. Carotid duplex 10/18/2016: Less than 50% bilateral ICA. 5. ASHLEY 10/30/2016: Normal LV size with hyperdynamic systolic function. EF 65- 70%. Normal wall motion. Severe LVH. Moderate left atrial dilation. Mild right atrial dilation moderate MR. Severe aortic stenosis suggested visually. Mild to moderate TR. RVSP 56. 6. Cardiac catheterization 10/30/2016: Proximal LAD 50-60%. Proximal circumflex 20%. PCWP 30. PA pressure 55/28 mmHg with a mean of 37. Cardiac index 3 L/min/m2. PVR 1 Wood units. 7. PFTs 11/02/16: Mild restriction. Normal lung volumes. 8. Aortic valve replacement and CABG x 1 at [facility] [place] 12/24/2016: Aortic valve Edward s Intuity bioprosthetic #25. Andrade to LAD. Left atrial appendage ablation with 35 mm atrial clip. Required several days of temporary pacing, vasopressor and inotropic support for temporary AV conduction delay. Complicated by acute kidney injury. 9. Echo 02/20/2017: Normal left ventricular size and systolic function. EF 60- 65%. Normal wall motion. Severe left atrial dilation. Appropriately functioning bioprosthetic aortic valve. Mild MR. Normal RVSP; 35 mmHg. 10. Loop recorder explantation December [address] Cortes 11. Echo 01/05/2020: Mildly dilated LV with normal systolic function. EF 55- 60%. No regional wall motion abnormalities. Moderate concentric LVH. Mildly dilated RV with normal systolic function. Severe left atrial dilation. Moderate right atrial dilation. Appropriately functioning bioprosthetic AVR. Mild MR. 12. Echo 11/16/2020 [facility]: Normal LV size, wall motion, systolic function. EF 55-60%. Moderate LVH. Mildly dilated RV with mildly reduced systolic functi on. Mild biatrial dilation. Appropriately functioning bioprosthetic AVR. Mild MR. RVSP 43. 13. Venous insufficiency study 02/01/2021: Bilateral GSV dilated with reflux and amenable to endovenous ablation. Right SSV with reflux. Left SSV borderline reflux. Bilateral SSV endovenous ablation could be considered. 14. Echo 06/29/2022: Mildly dilated LV with low normal systolic function. EF 50-55%. Normal wall motion. Mild LVH. Severe left atrial dilation. Bioprosthetic aortic valve with acceptable gradient. Moderate MAC. RVSP 49. She was admitted on 08/19/2022 with worsening shortness of breath. She recently had been in [place] and [place] visiting family. She was eating very little in the past week. Despite this, she has had shortness of breath that has been worsening, even short of breath at rest. She has had orthopnea and has had chronic edema. She describes minor chills at night. She has been coughing, producing white sputum that has transitioned to green sputum, especially over the past 3 or 4 days. She had substernal chest discomfort over the past 4 days or so, described as a pressure sensation. Chest discomfort can last up to 1 hour, occurring at rest. She was seen on 07/12/2022 in the cardiology office and Bumex was increased from 2 mg twice daily to 3 mg twice daily as she appeared hypervolemic at that time as per Bhumika Norman PA-C. Despite increasing her Bumex, her renal function remained stable and she was not feeling any better, but rather worsening. Prior to her recent trip, she had lost 14 pounds approximately by eating a healthier diet and coinciding with her increased Bumex. She states that she maintained a rather low-sodium diet despite her travel. While here, she was placed on Lasix 40 mg twice daily by the hospitalist service. She has not been producing significant urine output. Her and her both agree that she has been worsening since presentation. For today's consult, she was found sitting in a chair and visibly appeared short of breath at times with a "wet" cough. Her had upper respiratory infection a few days prior to her shortness of breath. She was chest pain-free this afternoon. Review of systems: As above. Review of systems otherwise negative/unremarkable. Family history: Mother with CAD in her 70s. Social history: Denies tobacco, alcohol, drug abuse. She is and lives with her . No biologic children. Two stepchildren. Five grandchildren. Her step children and grandchildren all live in [place]. Aunt was Jacque Ramirez. She is originally from [place] and moved to [place] in August of 2016 from [place]. She spends March through May in [place]. Her was at the bedside. Allergies Allergy/AdvReac Type Severity Reaction Status Date / Time Sulfa (Sulfonamide Allergy Severe ANAPHYLAXIS Verified 08/19/22 00:43 Antibiotics) Home Medications Medication Instructions Recorded Confirmed Type aspirin 81 mg tablet,delayed 81 mg PO QPM ##0 10/19/18 08/19/22 History release (Michael Low Dose Aspirin) azelastine 205.5 mcg (0.15 %) 1 sprays intranasal DAILY PRN 10/22/18 08/19/22 History nasal spray ALLERGIES insulin regular human 100 unit/mL 6 - 8 unit subcut TIDM 11/27/19 08/19/22 History injection solution (Novolin R Regular U-100 Insulin) pravastatin 80 mg tablet 80 mg PO HS #90 tabs 06/05/21 08/19/22 Rx potassium citrate 10 mEq (1,080 1,080 mg PO BID #60 tabs 07/19/21 08/19/22 Rx mg) tablet,extended release insulin NPH isoph U-100 human 100 12 - 16 unit subcut QPM 07/27/21 08/19/22 History unit/mL subcutaneous suspension (Novolin N NPH U-100 Insulin isophane) metoprolol succinate 25 mg 25 mg PO HS #90 tabs 10/25/21 08/19/22 Rx tablet,extended release 24 hr allopurinol 100 mg tablet 100 mg PO DAILY #90 tabs 04/17/22 08/19/22 Rx ergocalciferol (vitamin D2) 1,250 50,000 unit PO MONTHLY #4 caps 04/17/22 08/19/22 Rx mcg (50,000 unit) capsule diltiazem HCl 60 mg tablet 60 mg PO HS #90 tabs 04/18/22 08/19/22 Rx metformin 500 mg tablet,extended 1,000 mg PO BID #360 tabs 06/12/22 08/19/22 Rx release 24 hr diltiazem HCl 240 mg capsule,24 240 mg PO QAM #90 caps 07/05/22 08/19/22 Rx hr,extended release (Tiazac) Wheelchair (Manual) #1 ea 07/12/22 07/30/22 Rx acetaminophen 325 mg capsule 650 mg PO QID PRN pain 07/16/22 08/19/22 History bumetanide 2 mg tablet 3 mg PO BID 08/19/22 08/19/22 History cetirizine 10 mg tablet 10 mg PO QAM PRN Allergy Symptoms 08/19/22 08/19/22 History levothyroxine 150 mcg tablet 150 mcg PO DAILYBB 08/19/22 08/19/22 History warfarin 2 mg tablet 1 mg PO 3XWK 08/19/22 08/19/22 History warfarin 2 mg tablet 2 mg PO 4XWK 08/19/22 08/19/22 History Patient History Medical History (Updated 08/19/22 @ 17:52 by Joel Bucio MD) A-fib On Warfarin>FOLLOWED DR. BUCIO Aortic stenosis Atrial flutter Chronic diastolic congestive heart failure Colon polyps Coronary artery disease S/P CABG x 1 with AVR 2016. Diabetic peripheral neuropathy History of loop recorder Implanted AND REMOVED Hx of malignant melanoma of skin s/p simple excision Hyperlipemia Hypertension Hypothyroidism Obesity, morbid, BMI 40.0-49.9 Pulmonary hypertension Seasonal allergies Type 2 diabetes mellitus Vitamin D deficiency Surgical History (Updated 08/19/22 @ 17:52 by Joel Bucio MD) H/O aortic valve replacement 2017 G[facility]IN - BOVINE ALSO HAD CABG X1 VESSEL H/O cardiac catheterization [facility] - PRIOR TO 2017 SURGERY History of carpal tunnel release of both wrists History of colonoscopy History of partial hysterectomy History of transesophageal echocardiography ([facility]) PRIOR TO SURGERY 2016 Hx of cyst of breast s/p excision Hx of right cataract extraction Hx of tonsillectomy S/P CABG (coronary artery bypass graft) Status post hernia repair (11/24/18) Umbilical hernia with multiple defects with surgimesh 11/24/18 Dr. Chapman Casey teeth removed Family History Mother Family history of diabetes mellitus Grandmother (Maternal) Family history of diabetes mellitus Grandmother (Paternal) Family history of diabetes mellitus Aunt Family history of diabetes mellitus Uncle Family history of diabetes mellitus Father FHx: colon cancer Other FHx: esophageal cancer FHx: heart disease No family history of adverse response to anesthesia Social History Smoking Status: Never smoker Second Hand Exposure: No; Do You Dip or Chew Tobacco: No; Tobacco Cessation Education Requested by Patient: No Hx Alcohol Use: No Hx Substance Use: No Preferred Language: Serbian Communication Ability: Effective Visual Impairment: No Limitations Loss Prevention Auditor Required: No Beliefs That Will Affect Care: None marital status: Current Living Situation: Spouse Other Information That Helps Us Care for You: No Feels Safe at Home: Yes Safety Concerns: Feels Safe At This Time caffeine: No Seatbelt Use: always Assistive Devices: Walker Physical Exam Physical Exam: Gen.: Mild respiratory distress. Alert. HEENT: Anicteric sclera. Neck: JVD to the mandible while sitting upright. Cardiac: No ventricular heave. Irregularly irregular. Mildly tachycardic. Normal S1-S2. 2/6 early peaking systolic ejection murmur heard best at right upper sternal border. No rubs or gallops. Pulmonary: Decreased breath sounds throughout with Rales and expiratory wheezing bilaterally. Abdomen: Obese. Soft, nontender, nondistended, with normoactive bowel sounds. No bruits noted. Extremities: 2+ radial pulses bilaterally. 2+ posterior tibialis pulses bilaterally. 3+ bilateral lower extremity edema to the knees. No cyanosis. Results & Data Vital Signs (Past 12 Hours) Vital Signs Temp Pulse Pulse Resp BP Pulse Ox O2 Del Method 08/19/22 12:04 36.8 C 89 20 149/74 H 94 Oxymask 08/19/22 11:58 Nasal Cannula 08/19/22 11:58 96 H 08/19/22 11:04 93 H 18 93 Oxymask 08/19/22 07:49 36.8 C 100 H 20 146/80 H 95 Nasal Cannula 08/19/22 03:00 101 H 08/19/22 02:37 Nasal Cannula O2 Flow Rate 08/19/22 12:04 5 08/19/22 11:58 5 08/19/22 11:58 08/19/22 11:04 5 08/19/22 07:49 5 08/19/22 03:00 08/19/22 02:37 5 Intake & Output 08/17/22 08/18/22 08/19/22 08/20/22 06:59 06:59 06:59 06:59 Intake Total 200 / 200 255 / 255 Output Total 150 / 150 Balance 50 / 50 255 / 255 Weight 256 lb 13.416 oz Laboratory Results Laboratory Results - last 24 hr 08/18/22 08/18/22 08/18/22 23:05 23:05 23:05 WBC 10.55 RBC 3.89 L Hgb 11.2 L Hct 34.8 L MCV 89.5 MCH 28.8 MCHC 32.2 RDW Std Deviation 52.5 H RDW Coeff of [place] 16.1 H Plt Count 217 MPV 10.7 Immature Gran % (Auto) 0.4 Neut % (Auto) 80.7 Lymph % (Auto) 6.2 [place] % (Auto) 11.8 Eos % (Auto) 0.4 Baso % (Auto) 0.5 Neut # (Auto) 8.53 H Lymph # (Auto) 0.[address] # (Auto) 1.24 H Eos # (Auto) 0.04 Baso # (Auto) 0.05 Immature Gran # (Auto) 0.04 PT INR Sodium 140 Potassium 3.8 Chloride 103 Carbon Dioxide 24 Anion Gap 13 H BUN 31 H Creatinine 1.28 H Est Cr Clr Drug Dosing Not Reportable Est GFR ( Amer) 47.4 Est GFR (Non-Af Amer) 40.9 BUN/Creatinine Ratio 24.2 H Glucose 237 H POC Glucose Estimat Average Glucose Hemoglobin A1c Lactate 1.5 Calcium 9.7 Magnesium 1.9 Total Bilirubin 1.1 H Direct Bilirubin 0.5 H AST 9 L ALT 9 Alkaline Phosphatase 135 H Troponin I High Sens 19.2 H B-Natriuretic Peptide Total Protein 8.0 Albumin 4.1 Procalcitonin TSH Urine Color Urine Appearance Urine pH Ur Specific [place] Urine Protein Urine Glucose (UA) Urine Ketones Urine Blood Urine Nitrite Urine Bilirubin Urine Urobilinogen Ur Leukocyte Esterase Urine WBC (Auto) Urine RBC (Auto) U Hyaline Cast (Auto) U Epithel Cells (Auto) Urine Bacteria (Auto) Adenovirus (PCR) B. pertussis DNA (PCR) B.parapertussis DNA PCR C. pneumoniae DNA (PCR) Coronavirus OC43 (PCR) Coronavirus HKU1 (PCR) Coronavirus 229E (PCR) SARS-CoV-2 (PCR) Coronavirus NL63 (PCR) Human Metapneumovir PCR Influenza Type A (PCR) Influenza Type B (PCR) M. pneumoniae (PCR) Parainfluenza 1 (PCR) Parainfluenza 2 (PCR) Parainfluenza 3 (PCR) Parainfluenza 4 (PCR) RSV (PCR) Entero/Rhino (PCR) 08/18/22 08/18/22 08/18/22 23:05 23:05 23:05 WBC RBC Hgb Hct MCV MCH MCHC RDW Std Deviation RDW Coeff of [place] Plt Count MPV Immature Gran % (Auto) Neut % (Auto) Lymph % (Auto) [place] % (Auto) Eos % (Auto) Baso % (Auto) Neut # (Auto) Lymph # (Auto) [place] # (Auto) Eos # (Auto) Baso # (Auto) Immature Gran # (Auto) PT INR Sodium Potassium Chloride Carbon Dioxide Anion Gap BUN Creatinine Est Cr Clr Drug Dosing Est GFR ( Amer) Est GFR (Non-Af Amer) BUN/Creatinine Ratio Glucose POC Glucose Estimat Average Glucose Hemoglobin A1c Lactate Calcium Magnesium Total Bilirubin Direct Bilirubin AST ALT Alkaline Phosphatase Troponin I High Sens B-Natriuretic Peptide 318 H Total Protein Albumin Procalcitonin 0.19 TSH Urine Color Urine Appearance Urine pH Ur Specific [place] Urine Protein Urine Glucose (UA) Urine Ketones Urine Blood Urine Nitrite Urine Bilirubin Urine Urobilinogen Ur Leukocyte Esterase Urine WBC (Auto) Urine RBC (Auto) U Hyaline Cast (Auto) U Epithel Cells (Auto) Urine Bacteria (Auto) Adenovirus (PCR) Not Detected B. pertussis DNA (PCR) Not Detected B.parapertussis DNA PCR Not Detected C. pneumoniae DNA (PCR) Not Detected Coronavirus OC43 (PCR) Not Detected Coronavirus HKU1 (PCR) Not Detected Coronavirus 229E (PCR) Not Detected SARS-CoV-2 (PCR) Not Detected Coronavirus NL63 (PCR) Not Detected Human Metapneumovir PCR Not Detected Influenza Type A (PCR) Not Detected Influenza Type B (PCR) Not Detected M. pneumoniae (PCR) Not Detected Parainfluenza 1 (PCR) Not Detected Parainfluenza 2 (PCR) Not Detected Parainfluenza 3 (PCR) Not Detected Parainfluenza 4 (PCR) Not Detected RSV (PCR) Not Detected Entero/Rhino (PCR) Not Detected 08/18/22 08/18/22 08/19/22 23:05 23:15 02:10 WBC RBC Hgb Hct MCV MCH MCHC RDW Std Deviation RDW Coeff of [place] Plt Count MPV Immature Gran % (Auto) Neut % (Auto) Lymph % (Auto) [place] % (Auto) Eos % (Auto) Baso % (Auto) Neut # (Auto) Lymph # (Auto) [place] # (Auto) Eos # (Auto) Baso # (Auto) Immature Gran # (Auto) PT INR Sodium Potassium Chloride Carbon Dioxide Anion Gap BUN Creatinine Est Cr Clr Drug Dosing Est GFR ( Amer) Est GFR (Non-Af Amer) BUN/Creatinine Ratio Glucose POC Glucose 261 H Estimat Average Glucose 157 Hemoglobin A1c 7.1 H Lactate Calcium Magnesium Total Bilirubin Direct Bilirubin AST ALT Alkaline Phosphatase Troponin I High Sens B-Natriuretic Peptide Total Protein Albumin Procalcitonin TSH Urine Color Dark Yellow Urine Appearance Clear Urine pH 5.0 Ur Specific [place] 1.015 Urine Protein 1+ H Urine Glucose (UA) Negative Urine Ketones Trace H Urine Blood Negative Urine Nitrite Negative Urine Bilirubin 1+ H Urine Urobilinogen Negative Ur Leukocyte Esterase Negative Urine WBC (Auto) 1-5 Urine RBC (Auto) 0-4 U Hyaline Cast (Auto) 1-5 U Epithel Cells (Auto) 10-20 H Urine Bacteria (Auto) Negative Adenovirus (PCR) B. pertussis DNA (PCR) B.parapertussis DNA PCR C. pneumoniae DNA (PCR) Coronavirus OC43 (PCR) Coronavirus HKU1 (PCR) Coronavirus 229E (PCR) SARS-CoV-2 (PCR) Coronavirus NL63 (PCR) Human Metapneumovir PCR Influenza Type A (PCR) Influenza Type B (PCR) M. pneumoniae (PCR) Parainfluenza 1 (PCR) Parainfluenza 2 (PCR) Parainfluenza 3 (PCR) Parainfluenza 4 (PCR) RSV (PCR) Entero/Rhino (PCR) 08/19/22 08/19/22 08/19/22 06:56 06:56 06:56 WBC 10.38 RBC 3.96 L Hgb 11.2 L Hct 35.0 L MCV 88.4 MCH 28.3 MCHC 32.0 RDW Std Deviation 51.0 H RDW Coeff of [place] 15.9 H Plt Count 228 MPV 10.3 Immature Gran % (Auto) 0.4 Neut % (Auto) 81.8 Lymph % (Auto) 5.7 [place] % (Auto) 11.5 Eos % (Auto) 0.3 Baso % (Auto) 0.3 Neut # (Auto) 8.50 H Lymph # (Auto) 0.[address] [place] # (Auto) 1.19 H Eos # (Auto) 0.03 Baso # (Auto) 0.03 Immature Gran # (Auto) 0.04 PT INR Sodium 140 Potassium 3.9 Chloride 103 Carbon Dioxide 28 Anion Gap 9 BUN 36 H Creatinine 1.32 H Est Cr Clr Drug Dosing 47.8 Est GFR ( Amer) 45.6 Est GFR (Non-Af Amer) 39.4 BUN/Creatinine Ratio 27.3 H Glucose 232 H POC Glucose Estimat Average Glucose Hemoglobin A1c Lactate Calcium 9.6 Magnesium Total Bilirubin Direct Bilirubin AST ALT Alkaline Phosphatase Troponin I High Sens B-Natriuretic Peptide Total Protein Albumin Procalcitonin TSH 11.251 H Urine Color Urine Appearance Urine pH Ur Specific [place] Urine Protein Urine Glucose (UA) Urine Ketones Urine Blood Urine Nitrite Urine Bilirubin Urine Urobilinogen Ur Leukocyte Esterase Urine WBC (Auto) Urine RBC (Auto) U Hyaline Cast (Auto) U Epithel Cells (Auto) Urine Bacteria (Auto) Adenovirus (PCR) B. pertussis DNA (PCR) B.parapertussis DNA PCR C. pneumoniae DNA (PCR) Coronavirus OC43 (PCR) Coronavirus HKU1 (PCR) Coronavirus 229E (PCR) SARS-CoV-2 (PCR) Coronavirus NL63 (PCR) Human Metapneumovir PCR Influenza Type A (PCR) Influenza Type B (PCR) M. pneumoniae (PCR) Parainfluenza 1 (PCR) Parainfluenza 2 (PCR) Parainfluenza 3 (PCR) Parainfluenza 4 (PCR) RSV (PCR) Entero/Rhino (PCR) 08/19/22 08/19/22 08/19/22 06:56 07:07 08:18 WBC RBC Hgb Hct MCV MCH MCHC RDW Std Deviation RDW Coeff of [place] Plt Count MPV Immature Gran % (Auto) Neut % (Auto) Lymph % (Auto) [place] % (Auto) Eos % (Auto) Baso % (Auto) Neut # (Auto) Lymph # (Auto) [place] # (Auto) Eos # (Auto) Baso # (Auto) Immature Gran # (Auto) PT 52.8 H INR 5.4 H Sodium Potassium Chloride Carbon Dioxide Anion Gap BUN Creatinine Est Cr Clr Drug Dosing Est GFR ( Amer) Est GFR (Non-Af Amer) BUN/Creatinine Ratio Glucose POC Glucose 244 H Estimat Average Glucose Hemoglobin A1c Lactate Calcium Magnesium Total Bilirubin Direct Bilirubin AST ALT Alkaline Phosphatase Troponin I High Sens 17.5 H B-Natriuretic Peptide Total Protein Albumin Procalcitonin TSH Urine Color Urine Appearance Urine pH Ur Specific [place] Urine Protein Urine Glucose (UA) Urine Ketones Urine Blood Urine Nitrite Urine Bilirubin Urine Urobilinogen Ur Leukocyte Esterase Urine WBC (Auto) Urine RBC (Auto) U Hyaline Cast (Auto) U Epithel Cells (Auto) Urine Bacteria (Auto) Adenovirus (PCR) B. pertussis DNA (PCR) B.parapertussis DNA PCR C. pneumoniae DNA (PCR) Coronavirus OC43 (PCR) Coronavirus HKU1 (PCR) Coronavirus 229E (PCR) SARS-CoV-2 (PCR) Coronavirus NL63 (PCR) Human Metapneumovir PCR Influenza Type A (PCR) Influenza Type B (PCR) M. pneumoniae (PCR) Parainfluenza 1 (PCR) Parainfluenza 2 (PCR) Parainfluenza 3 (PCR) Parainfluenza 4 (PCR) RSV (PCR) Entero/Rhino (PCR) 08/19/22 10:56 WBC RBC Hgb Hct MCV MCH MCHC RDW Std Deviation RDW Coeff of [place] Plt Count MPV Immature Gran % (Auto) Neut % (Auto) Lymph % (Auto) [place] % (Auto) Eos % (Auto) Baso % (Auto) Neut # (Auto) Lymph # (Auto) [place] # (Auto) Eos # (Auto) Baso # (Auto) Immature Gran # (Auto) PT INR Sodium Potassium Chloride Carbon Dioxide Anion Gap BUN Creatinine Est Cr Clr Drug Dosing Est GFR ( Amer) Est GFR (Non-Af Amer) BUN/Creatinine Ratio Glucose POC Glucose 241 H Estimat Average Glucose Hemoglobin A1c Lactate Calcium Magnesium Total Bilirubin Direct Bilirubin AST ALT Alkaline Phosphatase Troponin I High Sens B-Natriuretic Peptide Total Protein Albumin Procalcitonin TSH Urine Color Urine Appearance Urine pH Ur Specific [place] Urine Protein Urine Glucose (UA) Urine Ketones Urine Blood Urine Nitrite Urine Bilirubin Urine Urobilinogen Ur Leukocyte Esterase Urine WBC (Auto) Urine RBC (Auto) U Hyaline Cast (Auto) U Epithel Cells (Auto) Urine Bacteria (Auto) Adenovirus (PCR) B. pertussis DNA (PCR) B.parapertussis DNA PCR C. pneumoniae DNA (PCR) Coronavirus OC43 (PCR) Coronavirus HKU1 (PCR) Coronavirus 229E (PCR) SARS-CoV-2 (PCR) Coronavirus NL63 (PCR) Human Metapneumovir PCR Influenza Type A (PCR) Influenza Type B (PCR) M. pneumoniae (PCR) Parainfluenza 1 (PCR) Parainfluenza 2 (PCR) Parainfluenza 3 (PCR) Parainfluenza 4 (PCR) RSV (PCR) Entero/Rhino (PCR) Diagnostic Findings Telemetry personally reviewed: Atrial fibrillation/flutter. History and physical report reviewed. ECG personally reviewed 08/18/2022 at 2309: Possible A-fib/flutter RVR 106 bpm. LBBB. (Wide-complex QRS suggestive of bundle branch block also noted on 06/29/2022 echo). History and physical report reviewed. Limited echo 08/19/2022: Probable normal LV systolic function. Limited views due to respiratory distress. Chest x-ray personally reviewed 08/18/2022: Bilateral pleural effusion. Pulmonary vascular congestion. Radiology reports small pleural effusions with patchy bibasilar consolidative opacities and mild pulmonary edema. Labs reviewed and notable for elevated BNP, mildly abnormal but stable renal function, normal potassium, mild anemia (stable). Medications Administered Current Inpatient Medications Acetaminophen (Acetaminophen 325 Mg Tab) 650 mg PO Q4H PRN PRN Reason: Pain or Fever Stop: 09/18/22 01:59 Al Hydrox/Mg Hydrox/Simethicone (Aluminum/Magnesium Susp 30 Ml Udc) 15 ml PO Q4H PRN PRN Reason: Dyspepsia Stop: 09/18/22 01:59 Albuterol (Albut/Ipratrop 3mg/0.5mg Neb 3 Ml Vial) 3 ml NEB QIDR CHETNA; Protocol Stop: 08/20/22 10:59 Last Admin: 08/19/22 11:02 Dose: 3 ml Allopurinol (Allopurinol 100 Mg Tab) 100 mg PO DAILY [facility] Stop: 09/18/22 08:59 Last Admin: 08/19/22 08:09 Dose: 100 mg Aspirin (Aspirin 81 Mg Ectab) 81 mg PO QPM [facility] Stop: 09/18/22 20:59 Azelastine HCl (Azelastine Hcl 0.1% Nasal 200 Sprays/27,400 Mcg Btl) 1 sprays NA DAILY PRN PRN Reason: ALLERGIES Stop: 09/18/22 02:13 Cetirizine HCl (Cetirizine Hcl 10 Mg Tablet) 10 mg PO QAM PRN PRN Reason: Allergy Symptoms Stop: 09/18/22 01:59 Last Admin: 08/19/22 08:09 Dose: 10 mg Dextrose (Dextrose 50% 50 Ml Syringe) 25 - 50 ml IV UD PRN; Protocol PRN Reason: Hypoglycemia Protocol Stop: 09/18/22 01:59 Diltiazem HCl (Diltiazem Hcl 60 Mg Tab) 60 mg PO HS [facility] Stop: 09/18/22 20:59 Diltiazem HCl (Diltiazem Hcl 240 Mg Capcr) 240 mg PO QAM CHET[facility] Stop: 09/18/22 08:59 Last Admin: 08/19/22 08:09 Dose: 240 mg Ergocalciferol (Ergocalciferol 50,000 Units 1250 Mcg Cap) 50,000 units PO Q30D [facility] Stop: 09/29/22 08:59 Glucagon (Glucagon For Inj 1 Mg Vial) 1 mg SQ UD PRN; Protocol PRN Reason: Hypoglycemia Protocol Stop: 09/18/22 01:59 Glucose (Glucose 10 Tab/Tube) 4 - 8 tab PO UD PRN; Protocol PRN Reason: Hypoglycemia Treatment Stop: 09/18/22 01:59 Glucose (Glucose 40% Gel 15 Gm Tube) 15 - 30 gm PO UD PRN; Protocol PRN Reason: Hypoglycemia Protocol Stop: 09/18/22 01:59 Guaifenesin (Guaifenesin 600 Mg Tabcr) 600 mg PO Q12 [facility] Stop: 08/22/22 08:59 Last Admin: 08/19/22 08:08 Dose: 600 mg Guaifenesin/Dextromethorphan (Guaifenesin/Dextrom Syrup 100mg/10mg 5ml Udc) 5 ml PO Q6H PRN PRN Reason: Cough Stop: 09/18/22 02:49 Last Admin: 08/19/22 03:21 Dose: 5 ml Azithromycin 500 mg/ Dextrose 255 mls @ 125 mls/hr IV DAILY [facility] Stop: 08/21/22 08:59 Last Infusion: 08/19/22 10:11 Dose: Infused Insulin Aspart (Insulin Aspart Per Unit Charge) 0 units SC ACHS [facility] Stop: 09/18/22 02:29 Last Admin: 08/19/22 12:26 Dose: 10 units Insulin Glargine (Lantus Per Unit Charge) 15 units SC HS [facility] Stop: 09/18/22 02:29 Last Admin: 08/19/22 02:31 Dose: 15 units Levothyroxine Sodium (Levothyroxine Sodium 150 Mcg Tablet) 150 mcg PO DAILYBB [facility] Stop: 09/18/22 06:29 Last Admin: 08/19/22 05:34 Dose: 150 mcg Metoprolol Succinate (Metoprolol Succ 25mg Ext Rel Tab) 25 mg PO [facility] Stop: 09/18/22 20:59 Miscellaneous (Carbohydrates For Hypoglycemia ) 15 - 30 gm PO UD PRN PRN Reason: Hypoglycemia Protocol Stop: 09/18/22 01:59 Miscellaneous Information (Pharmacy Glycemic Mgmt Consult) 1 each N/A UD PRN PRN Reason: Consult Stop: 09/18/22 01:59 Ondansetron HCl (Ondansetron Inj 2 Mg/Ml 2 Ml Vial) 4 mg IV Q4H PRN PRN Reason: Nausea Stop: 09/18/22 09:30 Potassium Citrate (Potassium Citrate 10 Meq Tab) 10 meq PO BID [facility] Stop: 09/18/22 08:59 Last Admin: 08/19/22 08:09 Dose: 10 meq Pravastatin Sodium (Pravastatin Sod 40 Mg Tab) 80 mg PO [facility] Stop: 09/18/22 20:59 PG Care Time/CCT Total # of Minutes Spent Total Time Spent with Patient: Total time spent is greater than 50% in coordination of care (as documented) at patient's floor/unit and/or counseling patient: Critical Care Time: Yes Total Critical Care Time: 65 Coding Level of Care Code 10924 CRITICAL CARE 1ST 30-74M Diagnoses Acute on chronic heart failure with preserved ejection fraction (HFpEF) I50.33 Acute respiratory failure with hypoxia J96.01 S/P aortic valve replacement with bioprosthetic valve Z95.3 Mitral regurgitation I34.0 Cardiac valve disease etiology: etiology unspecified CAD in poarch artery I25.10 Atrial flutter I48.92 A-fib I48.2 Atrial fibrillation type: permanent Hypertension I10 S/P CABG (coronary artery bypass graft) Z95.1 Additional Codes Critical Care Time - Critical Care Time: Yes ([id number]) Time Spent (min) 65 (4) Mitral regurgitation Cardiac valve disease etiology: etiology unspecified Qualified Code(s): I34.0 - Nonrheumatic mitral (valve) insufficiency (7) A-fib Atrial fibrillation type: permanent Qualified Code(s): I48.2 - Chronic atrial fibrillation
--- NOTE | 2022-08-19 15:06 | Pulmonary Consultation ---
Date of Consultation August 19, 2022 Assessment & Plan (1) Acute congestive heart failure: Heart failure type: systolic Qualified Code(s): I50.21 - Acute systolic (congestive) heart failure (2) Acute respiratory failure with hypoxia: (3) Atrial flutter: (4) Pulmonary hypertension: (5) Obesity, morbid, BMI 40.0-49.9: Plan Chest x-ray 08/18/2022 personally reviewed: Portable film, good inspiratory effort, blunting of the left costophrenic and right cardiophrenic angle, bilateral cardiophrenic angles blunted, increased cardiac silhouette Increased pulmonary vascular markings 2D Echo 06/29/2022: EF 50-55%, Severe LA dilation, RVSP 49 mm Hg -- Acute hypoxic respiratory failure Secondary to fluid overload with HFpEF BNP 318 O2 supplementation to keep oxygen saturation between 88-92% BiPAP nightly and as needed shortness of breath will be beneficial -- Pulmonary Hypertension Type II with possibly SHARI also playing a role Plan as above --Probable SHARI Unfortunately patient does not want to try CPAP or BiPAP --A-fib On warfarin Plan: Patient's was in the room and I discussed the importance and the benefit of using a BiPAP given that she is so short of breath and requiring such high oxygen, patient refused even on multiple persuasion I even discussed that if she would not use the BiPAP then she might need intubation (tube in her mouth) and connected to a ventilator, she refused that too. I reiterated if there is a question of life and would she not want intubation? and she confirmed that she would not. 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 I discussed the case with the primary team as well as RN Unfortunately if the patient refuses BiPAP as well as intubation, I would not be able to offer much Would recommend changing the code to DNR Please note the above document was generated using voice recognition software. It may contain grammatical, syntax or spelling errors.Any formal questions or concerns about the content, text or information contained within the body of this dictation should be directly addressed to the provider for clarification. History of Present Illness Attending Physician: Diogo Holder MD History of Present Illness 77-year-old female presents to the hospital with shortness of breath Past medical history: Coronary artery disease s/p CABG, bioprosthetic aortic valve, A-fib on warfarin, hypertension, dyslipidemia Pulmonary consulted for worsening shortness of breath At the time of examination patient's was in the room. She was in respiratory distress. She was on 4 L, 80% high flow saturating 91- 92% She stated that she is feeling better but she appeared otherwise. Denied any chest pain, no headache, no nausea, no vomiting Denied any abdominal pain No fever or chills at home Did complain of cough and difficulty bringing up the phlegm. No dysuria or diarrhea prior to presentation Patient had gotten 4 mg of Bumex around 2:50 PM with no significant output Social history: Lifetime non-smoker, used to be a nurse Allergies Allergy/AdvReac Type Severity Reaction Status Date / Time Sulfa (Sulfonamide Allergy Severe ANAPHYLAXIS Verified 08/19/22 00:43 Antibiotics) Home Medications Medication Instructions Recorded Confirmed Type aspirin 81 mg tablet,delayed 81 mg PO QPM ##0 10/19/18 08/19/22 History release (Michael Low Dose Aspirin) azelastine 205.5 mcg (0.15 %) 1 sprays intranasal DAILY PRN 10/22/18 08/19/22 History nasal spray ALLERGIES insulin regular human 100 unit/mL 6 - 8 unit subcut TIDM 11/27/19 08/19/22 History injection solution (Novolin R Regular U-100 Insulin) pravastatin 80 mg tablet 80 mg PO HS #90 tabs 06/05/21 08/19/22 Rx potassium citrate 10 mEq (1,080 1,080 mg PO BID #60 tabs 07/19/21 08/19/22 Rx mg) tablet,extended release insulin NPH isoph U-100 human 100 12 - 16 unit subcut QPM 07/27/21 08/19/22 History unit/mL subcutaneous suspension (Novolin N NPH U-100 Insulin isophane) metoprolol succinate 25 mg 25 mg PO HS #90 tabs 10/25/21 08/19/22 Rx tablet,extended release 24 hr allopurinol 100 mg tablet 100 mg PO DAILY #90 tabs 04/17/22 08/19/22 Rx ergocalciferol (vitamin D2) 1,250 50,000 unit PO MONTHLY #4 caps 04/17/22 08/19/22 Rx mcg (50,000 unit) capsule diltiazem HCl 60 mg tablet 60 mg PO HS #90 tabs 04/18/22 08/19/22 Rx metformin 500 mg tablet,extended 1,000 mg PO BID #360 tabs 06/12/22 08/19/22 Rx release 24 hr diltiazem HCl 240 mg capsule,24 240 mg PO QAM #90 caps 07/05/22 08/19/22 Rx hr,extended release (Tiazac) Wheelchair (Manual) #1 ea 07/12/22 07/30/22 Rx acetaminophen 325 mg capsule 650 mg PO QID PRN pain 07/16/22 08/19/22 History bumetanide 2 mg tablet 3 mg PO BID 08/19/22 08/19/22 History cetirizine 10 mg tablet 10 mg PO QAM PRN Allergy Symptoms 08/19/22 08/19/22 History levothyroxine 150 mcg tablet 150 mcg PO DAILYBB 08/19/22 08/19/22 History warfarin 2 mg tablet 1 mg PO 3XWK 08/19/22 08/19/22 History warfarin 2 mg tablet 2 mg PO 4XWK 08/19/22 08/19/22 History Patient History Medical History (Updated 08/19/22 @ 17:52 by Joel Bucio MD) A-fib On Warfarin>FOLLOWED DR. BUCIO Aortic stenosis Atrial flutter Chronic diastolic congestive heart failure Colon polyps Coronary artery disease S/P CABG x 1 with AVR 2016. Diabetic peripheral neuropathy History of loop recorder Implanted AND REMOVED Hx of malignant melanoma of skin s/p simple excision Hyperlipemia Hypertension Hypothyroidism Obesity, morbid, BMI 40.0-49.9 Pulmonary hypertension Seasonal allergies Type 2 diabetes mellitus Vitamin D deficiency Surgical History (Updated 08/19/22 @ 17:52 by Joel Bucio MD) H/O aortic valve replacement 2017 [facility] - BOVINE ALSO HAD CABG X1 VESSEL H/O cardiac catheterization [facility] - PRIOR TO 2017 SURGERY History of carpal tunnel release of both wrists History of colonoscopy History of partial hysterectomy History of transesophageal echocardiography ([facility]) PRIOR TO SURGERY 2017 Hx of cyst of breast s/p excision Hx of right cataract extraction Hx of tonsillectomy S/P CABG (coronary artery bypass graft) Status post hernia repair (11/24/18) Umbilical hernia with multiple defects with surgimesh 11/24/18 Dr. Chapman [place] teeth removed Family History Mother Family history of diabetes mellitus Grandmother (Maternal) Family history of diabetes mellitus Grandmother (Paternal) Family history of diabetes mellitus Aunt Family history of diabetes mellitus Uncle Family history of diabetes mellitus Father FHx: colon cancer Other FHx: esophageal cancer FHx: heart disease No family history of adverse response to anesthesia Social History Smoking Status: Never smoker Second Hand Exposure: No; Do You Dip or Chew Tobacco: No; Tobacco Cessation Education Requested by Patient: No Hx Alcohol Use: No Hx Substance Use: No Preferred Language: [place] Communication Ability: Effective Visual Impairment: No Limitations Writer Technical Publications Required: No Beliefs That Will Affect Care: None marital status: Current Living Situation: Spouse Other Information That Helps Us Care for You: No Feels Safe at Home: Yes Safety Concerns: Feels Safe At This Time caffeine: No Seatbelt Use: always Assistive Devices: Walker Review of Systems Review of Systems: All systems reviewed & are unremarkable except as noted in HPI & below Physical Exam Physical Exam: Constitutional: In respiratory distress HEENT: EOMI, PERRLA, positive JVD Respiratory system: Decreased air entry bilaterally, no rhonchi, positive crackles bilaterally, mild expiratory wheeze bilaterally CVS: S1-S2 positive, no murmurs or gallops Abdomen: Soft, nontender, nondistended, positive bowel sounds x4, obese Extremities: +2 pulses bilaterally radialis/ dorsalis pedis, no cyanosis, +3 pitting edema bilateral lower extremity Neuro: Awake alert oriented x3 Psych: Normal mood and affect G/U: Positive [place] Skin: no rashes, warm and dry Lymphatic: no cervical or axillary lymphadenopathy Results & Data Results & Data Vital Signs (Past 12 Hours) Vital Signs Temp Pulse Pulse Resp BP Pulse Ox O2 Del Method 08/19/22 14:55 36.7 C 102 H 26 H 161/81 H 90 High Flow Nasal Cannula 08/19/22 12:04 36.8 C 89 20 149/74 H 94 Oxymask 08/19/22 11:58 Nasal Cannula 08/19/22 11:58 96 H 08/19/22 11:04 93 H 18 93 Oxymask 08/19/22 07:49 36.8 C 100 H 20 146/80 H 95 Nasal Cannula O2 Flow Rate FiO2 08/19/22 14:55 40 100 08/19/22 12:04 5 08/19/22 11:58 5 08/19/22 11:58 08/19/22 11:04 5 08/19/22 07:49 5 Laboratory Results 08/19/22 06:56 08/19/22 06:56 PG Care Time/CCT Total # of Minutes Spent Total Time Spent with Patient: Total time spent is greater than 50% in coordination of care (as documented) at patient's floor/unit and/or counseling patient: Coding Level of Care Code 14856 INT INP/OBS CARE 75MIN Diagnoses Acute congestive heart failure I50.21 Heart failure type: systolic Acute respiratory failure with hypoxia J96.01 Atrial flutter I48.92 Pulmonary hypertension I27.20 Obesity, morbid, BMI 40.0-49.9 E66.01
--- NOTE | 2022-08-19 15:22 | Pharmacy Report ---
Pharmacy Glycemic Short Note 2 - Date of Service August 19, 2022 - Glycemic Short BSG Results (Last 24 hours): 08/18/22 08/19/22 08/19/22 23:05 02:10 06:56 Glucose 237 H 232 H POC Glucose 261 H 08/19/22 08/19/22 07:07 10:56 Glucose POC Glucose 244 H 241 H OUTPATIENT ANTIDIABETIC REGIMEN: * NPH Insulin 12-16 units QPM * Regular Insulin 6-8 units TIDM * Metformin ER 1000 mg PO BID HbA1c = 7.1% on 08/18/22 ASSESSMENT: * 77 y/o F admitted for CHF exacerbation last night. She has history of Type 2 diabetes managed on basal and bolus insulins and oral Metformin at home. * BSGs have been above 200 mg/dl consistently since last night despite patient receiving basal 15 units at HS yesterday. * Novolog was ordered based on stress of 2 last night. * Fasting BSG = 244 mg/dl today. Added 15 units of basal insulin again this AM but pre-lunch BSG still at 241 mg/dl. * Novolog parameters tightened with lunch and increased basal insulin BID starting at HS today. PLAN FOR INPATIENT GLYCEMIC CONTROL: * Hold outpatient oral diabetes medications * Basal insulin * Lantus 15 units SQ last night (08/18 HS) and this morning-/ AM * Lantus 20 units SQ BID ongoing * Bolus insulin * NovoLog per scale ACHS or Q6hrs while NPO * Goal Range: Low 110 mg/dL - High 140 mg/dL * Correction Factor: 15 mg/dL/unit * Nutritional / Prandial insulin per carb ratio of 1 unit per 5 grams CHO consumed
--- NOTE | 2022-08-19 15:56 | XCELERA ---
[id number]
[2022-08-19] MEDS ORDERED: CHLOROTHIAZIDE SODIUM 250 MG in DEXTROSE 5% 50 ML IV ONE (16:00)
--- NOTE | 2022-08-19 16:22 | Communication Note ---
Date of Service: August 19, 2022 Please refer to the H&P dictated earlier this morning for details of presentation on admission. This is a 77-year-old female with a history of CHF, aortic stenosis status post bioprosthetic aortic valve replacement, atrial fibrillation on Coumadin, CKD stage III who presented with shortness of breath, exertional dyspnea, leg swelling. Her chest x-ray showed pulmonary congestion. Her BNP was elevated at 318. She was diagnosed with acute CHF and was admitted to the hospital. She was started on IV Lasix. However this morning, her condition got worse. She went into acute hypoxic respiratory failure requiring nonrebreather. Cardiology agreed that the patient is volume overloaded and ordered Bumex. She has not had much diuretic response to Bumex. Critical care was consulted. The patient is refusing BiPAP or intubation. The bladder scan that was done with her in seated position is unreadable. Patient changed her code status to DNR/DNI Ordered bmp stat Consult nephrology.
[2022-08-19] MEDS: NITROGLYCERIN 2% OINTMENT 30GM TUBE EXT SCH ×2 (16:46→22:39)
[2022-08-19] MEDS ORDERED: FUROSEMIDE 40 MG/4 ML VIAL IV SCH (17:00)
[2022-08-19 17:28] LABS: BUN Creatinine Ratio 28.2 (10-20); Calcium 9.6 mg/dl (8.6-10.3); Creatinine Clr Calc Pharmacy 44.4 ml/min; Est GFR (African American) 41.8 ml/min; Potassium 4.1 mmol/L (3.5-5.1)
[2022-08-19] MEDS: BUMETANIDE 10 MG in DEXTROSE 5% 10 ML IV SCH (18:13)
[2022-08-19] MEDS: LANTUS PER UNIT CHARGE SC SCH (20:39)
[2022-08-19] MEDS: dilTIAZem HCl 60 MG TAB PO SCH (20:39)
[2022-08-19] MEDS: PRAVASTATIN SOD 40 MG TAB PO SCH (20:39)
[2022-08-19] MEDS: METOPROLOL SUCC 25MG EXT REL TAB PO SCH (20:39)
[2022-08-19] MEDS: ASPIRIN 81 MG ECTAB PO SCH (20:39)
[2022-08-20] MEDS: NITROGLYCERIN 2% OINTMENT 30GM TUBE EXT SCH ×4 (05:23→22:56)
[2022-08-20 06:23] LABS: BUN Creatinine Ratio 28.9 (10-20); Calcium 9.7 mg/dl (8.6-10.3); Creatinine Clr Calc Pharmacy 39.7 ml/min; Est GFR (African American) 36.4 ml/min; Est GFR (Non-African American) 31.4 ml/min; Potassium 4.2 mmol/L (3.5-5.1)
[2022-08-20] MEDS: LEVOTHYROXINE SODIUM 150 MCG TABLET PO SCH (06:27)
[2022-08-20 06:55] LABS: Prothrombin Time > 90.0 Seconds (9.0-12.0)
[2022-08-20 07:00] LABS: INR > 9.5 (0.9-1.1)
[2022-08-20] MEDS: ALBUT/IPRATROP 3MG/0.5MG NEB 3 ML VIAL NEB SCH (07:20)
[2022-08-20] MEDS ORDERED: SODIUM CHLORIDE 0.9% 250 ML IV PRN (07:32)
[2022-08-20] MEDS ORDERED: PHYTONADIONE 5 MG in DEXTROSE 5% 50 ML IV ONE (07:40)
[2022-08-20] MEDS ORDERED: PHYTONADIONE 10 MG in DEXTROSE 5% 50 ML IV ONE (07:50)
[2022-08-20 08:05] LABS: Hematocrit (blood only) 36.6 % (37.0-47.0); Hemoglobin 11.5 g/dl (12.0-16.0); Mean Corpuscular Hgb Conc 31.4 g/dL (32.0-36.0); Mean Corpuscular Volume 89.1 fL (80.0-100.0); Platelet Count 237 K/uL (130-400); RDW Coefficient of Variation 15.7 % (11.5-14.5); Red Blood Count 4.11 M/uL (4.20-5.40); White Blood Count 12.66 K/ul (4.8-10.8)
[2022-08-20] MEDS: LANTUS PER UNIT CHARGE SC SCH ×2 (08:23→21:15)
[2022-08-20] MEDS: INSULIN ASPART PER UNIT CHARGE SC SCH ×4 (08:23→21:15)
[2022-08-20] MEDS: AZITHROMYCIN 500 MG in DEXTROSE 5% 250 ML IV SCH (08:26)
[2022-08-20 08:48] LABS: HCO3 ABG 28 mmol/L (19-24); Oxygen Saturation ABG 94.8 % (90-95); PCO2 ABG 63 mmHg (35-46); PO2 ABG 71 mmHg (80-95); pH ABG 7.25 (7.35-7.45)
[2022-08-20 08:49] LABS: Allen Test Pos (Pos)
--- NOTE | 2022-08-20 09:30 | Cardiology Progress Note ---
Date of Service August 20, 2022 Assessment & Plan (1) Acute on chronic heart failure with preserved ejection fraction (HFpEF): (2) Acute respiratory failure with hypoxia: (3) S/P aortic valve replacement with bioprosthetic valve: (4) Mitral regurgitation: (5) CAD in [place] artery: (6) Atrial flutter: (7) A-fib: (8) Hypertension: (9) S/P CABG (coronary artery bypass graft): Plan ASSESSMENT/PLAN: 1. Acute on chronic heart failure with preserved EF: She appears hypervolemic. Urine output improving. Continue Bumex drip for now. Ordered an additional Diuril 250 mg IV x1 this morning. Nitro paste ordered for preload reduction and hypertension (08/19/22). She refused BiPAP initially, but appears much more comfortable on BiPAP today. Strict I's and O's. Daily weights. Goal net negative I's and O's today 1 to 2 L negative. Can consider SGLT2 inhibitor in the future. 2. Acute respiratory failure with hypoxia: Looks much more comfortable on BiPAP. Acidemia on this morning's ABG. Nursing staff stated that she was less alert this morning but has since improved on BiPAP. 3. CAD s/p CABG (ANDRADE to LAD): Intermittent chest discomfort in the setting of CHF exacerbation. High-sensitivity troponin despite prolonged episodes, does not suggest acute coronary syndrome. Will reassess symptoms when volume status improves. Continue beta-wing and statin therapy. LBBB on initial ECG but bundle branch block also noted on outpatient echo in June. 4. Aortic valve replacement: Recent echo demonstrated appropriately functioning bioprosthetic aortic valve (06/29/2022). SBE prophylaxis for dental procedures. 5. Atrial flutter/fibrillation: Chronic issue and likely permanent. Continue beta-wing and diltiazem. Heart rate elevated in the setting of CHF exacerbation. Continue anticoagulation for stroke risk reduction. INR supratherapeutic, likely related to hepatic congestion. She has received vitamin K by hospitalist. She has undergone left atrial appendage ablation with 35mm atrial clip. She has declined NOAC. 6. Hypertension: Blood pressure has improved with diuresis and nitroglycerin application. Normotensive this morning. 7. Mitral regurgitation: Not fully interrogated on today's echo due to decompensation. Can be evaluated further when able to tolerate echo. 8. Disposition: Cardiology will continue to follow. Heart failure program referral. Updated Dr. Holder of the hospitalist service. Discussed with Dr. Clancy of Nephrology (pending nephro consult by hospitalist). Care discussed with nursing staff. Cardiology will continue to follow. Admission and Anticipated Discharge Date Admission Date: August 19, 2022 Subjective She feels much better today. She is on BiPAP and tolerating it. She admits that her breathing is much improved on BiPAP and she is able to rest. She denies chest pain, syncope, near syncope, palpitations, or bleeding. She was unaccompanied in her hospital room. Physical Exam Physical Exam: Gen.: No acute distress. Alert. On Bipap. HEENT: Anicteric sclera. Neck: JVD to the mandible. Cardiac: No ventricular heave. Irregularly irregular. Normal S1-S2. 2/6 early peaking systolic ejection murmur heard best at right upper sternal border. No rubs or gallops. Pulmonary: Decreased breath sounds throughout, but improved from yesterday. Coarse breath sounds bilaterally. Abdomen: Obese. Soft, nontender, nondistended, with normoactive bowel sounds. No bruits noted. Extremities: 2+ radial pulses bilaterally. 2+ posterior tibialis pulses bilaterally. 3+ bilateral lower extremity edema to the knees. No cyanosis. Results & Data Vital Signs (Past 12 Hours) Vital Signs Temp Pulse Pulse Resp BP Pulse Ox O2 Del Method 08/20/22 09:09 94 H 28 H 91 08/20/22 07:32 36.5 C 100 H 20 135/69 95 BiPAP 08/20/22 07:21 81 12 95 08/20/22 07:20 85 27 H 95 BiPAP 08/20/22 05:20 36.4 C L 94 H 24 157/80 H 97 BiPAP 08/20/22 03:12 93 H 25 H 93 08/20/22 03:07 36.8 C 88 22 131/72 92 High Flow Nasal Cannula 08/20/22 02:31 Other 08/20/22 00:23 36.3 C L 92 H 22 133/72 94 BiPAP 08/19/22 23:35 52 L 23 95 08/19/22 23:18 86 O2 Flow Rate FiO2 08/20/22 09:09 60 08/20/22 07:32 55 08/20/22 07:21 55 08/20/22 07:20 55 08/20/22 05:20 08/20/22 03:12 70 08/20/22 03:07 50 08/20/22 02:31 30 80 08/20/22 00:23 08/19/22 23:35 75 08/19/22 23:18 Intake & Output 08/18/22 08/19/22 08/20/22 08/21/22 06:59 06:59 06:59 06:59 Intake Total 200 / 200 774 / 774 51 / 51 Output Total 150 / 150 1350 / 1350 Balance 50 / 50 -576 / -576 51 / 51 Weight 256 lb 13.416 oz Laboratory Results Laboratory Results - last 24 hr 08/19/22 08/19/22 08/19/22 10:56 16:26 16:41 WBC RBC Hgb Hct MCV MCH MCHC RDW Std Deviation RDW Coeff of [place] Plt Count MPV PT INR ABG pH ABG pCO2 ABG pO2 ABG HCO3 ABG O2 Saturation ABG Base Excess Shawn Test Oxygen Given Sodium 140 Potassium 4.1 Chloride 103 Carbon Dioxide 27 Anion Gap 10 BUN 40 H Creatinine 1.42 H Est Cr Clr Drug Dosing 44.4 Est GFR ( Amer) 41.8 Est GFR (Non-Af Amer) 36.0 BUN/Creatinine Ratio 28.2 H Glucose 199 H POC Glucose 241 H 201 H Calcium 9.6 Blood Type 08/19/22 08/20/22 08/20/22 20:25 05:37 05:42 WBC RBC Hgb Hct MCV MCH MCHC RDW Std Deviation RDW Coeff of [place] Plt Count MPV PT > 90.0 H INR > 9.5 H* ABG pH ABG pCO2 ABG pO2 ABG HCO3 ABG O2 Saturation ABG Base Excess Shawn Test Oxygen Given Sodium 140 Potassium 4.2 Chloride 102 Carbon Dioxide 28 Anion Gap 10 BUN 46 H Creatinine 1.59 H Est Cr Clr Drug Dosing 39.7 Est GFR ( Amer) 36.4 Est GFR (Non-Af Amer) 31.4 BUN/Creatinine Ratio 28.9 H Glucose 181 H POC Glucose 164 H Calcium 9.7 Blood Type 08/20/22 08/20/22 08/20/22 05:42 06:04 07:56 WBC 12.66 H RBC 4.11 L Hgb 11.5 L Hct 36.6 L MCV 89.1 MCH 28.0 MCHC 31.4 L RDW Std Deviation 51.0 H RDW Coeff of [place] 15.7 H Plt Count 237 MPV 11.0 PT INR ABG pH ABG pCO2 ABG pO2 ABG HCO3 ABG O2 Saturation ABG Base Excess Shawn Test Oxygen Given Sodium Potassium Chloride Carbon Dioxide Anion Gap BUN Creatinine Est Cr Clr Drug Dosing Est GFR ( Amer) Est GFR (Non-Af Amer) BUN/Creatinine Ratio Glucose POC Glucose 181 H 194 H Calcium Blood Type 08/20/22 08/20/22 08:38 08:38 WBC RBC Hgb Hct MCV MCH MCHC RDW Std Deviation RDW Coeff of [place] Plt Count MPV PT INR ABG pH 7.25 L ABG pCO2 63 H ABG pO2 71 L ABG HCO3 28 H ABG O2 Saturation 94.8 ABG Base Excess -1.0 Shawn Test Pos Oxygen Given 55% Sodium Potassium Chloride Carbon Dioxide Anion Gap BUN Creatinine Est Cr Clr Drug Dosing Est GFR ( Amer) Est GFR (Non-Af Amer) BUN/Creatinine Ratio Glucose POC Glucose Calcium Blood Type O Positive Diagnostic Findings Telemetry personally reviewed: Atrial fibrillation with heart rates 80s-100s. ECG personally reviewed 08/20/2022: Atrial fibrillation 95 bpm. LBBB. Chart reviewed. Labs ordered and reviewed from 08/20/2022: Stable renal function with creatinine within usual baseline. Stable hemoglobin, mild leukocytosis. INR > 9.5 (received vitamin K by hospitalist service). ABG demonstrated acidemia Medications Administered Current Inpatient Medications Acetaminophen (Acetaminophen 325 Mg Tab) 650 mg PO Q4H PRN PRN Reason: Pain or Fever Stop: 09/18/22 01:59 Al Hydrox/Mg Hydrox/Simethicone (Aluminum/Magnesium Susp 30 Ml Udc) 15 ml PO Q4H PRN PRN Reason: Dyspepsia Stop: 09/18/22 01:59 Albuterol (Albut/Ipratrop 3mg/0.5mg Neb 3 Ml Vial) 3 ml NEB QIDR CHETNA; Protocol Stop: 08/20/22 10:59 Last Admin: 08/20/22 07:20 Dose: 3 ml Allopurinol (Allopurinol 100 Mg Tab) 100 mg PO DAILY CHETNA Stop: 09/18/22 08:59 Last Admin: 08/20/22 09:40 Dose: 100 mg Aspirin (Aspirin 81 Mg Ectab) 81 mg PO QPM CHETNA Stop: 09/18/22 20:59 Last Admin: 08/19/22 20:39 Dose: 81 mg Azelastine HCl (Azelastine Hcl 0.1% Nasal 200 Sprays/27,400 Mcg Btl) 1 sprays NA DAILY PRN PRN Reason: ALLERGIES Stop: 09/18/22 02:13 Cetirizine HCl (Cetirizine Hcl 10 Mg Tablet) 10 mg PO QAM PRN PRN Reason: Allergy Symptoms Stop: 09/18/22 01:59 Last Admin: 08/20/22 09:39 Dose: 10 mg Dextrose (Dextrose 50% 50 Ml Syringe) 25 - 50 ml IV UD PRN; Protocol PRN Reason: Hypoglycemia Protocol Stop: 09/18/22 01:59 Diltiazem HCl (Diltiazem Hcl 60 Mg Tab) 60 mg PO HS [facility] Stop: 09/18/22 20:59 Last Admin: 08/19/22 20:39 Dose: 60 mg Diltiazem HCl (Diltiazem Hcl 240 Mg Capcr) 240 mg PO QAM [facility] Stop: 09/18/22 08:59 Last Admin: 08/20/22 09:39 Dose: 240 mg Ergocalciferol (Ergocalciferol 50,000 Units 1250 Mcg Cap) 50,000 units PO Q30D [facility] Stop: 09/29/22 08:59 Glucagon (Glucagon For Inj 1 Mg Vial) 1 mg SQ UD PRN; Protocol PRN Reason: Hypoglycemia Protocol Stop: 09/18/22 01:59 Glucose (Glucose 10 Tab/Tube) 4 - 8 tab PO UD PRN; Protocol PRN Reason: Hypoglycemia Treatment Stop: 09/18/22 01:59 Glucose (Glucose 40% Gel 15 Gm Tube) 15 - 30 gm PO UD PRN; Protocol PRN Reason: Hypoglycemia Protocol Stop: 09/18/22 01:59 Guaifenesin (Guaifenesin 600 Mg Tabcr) 600 mg PO Q12 CHETNA Stop: 08/22/22 08:59 Last Admin: 08/20/22 09:39 Dose: 600 mg Guaifenesin/Dextromethorphan (Guaifenesin/Dextrom Syrup 100mg/10mg 5ml Udc) 5 ml PO Q6H PRN PRN Reason: Cough Stop: 09/18/22 02:49 Last Admin: 08/19/22 03:21 Dose: 5 ml Azithromycin 500 mg/ Dextrose 255 mls @ 125 mls/hr IV DAILY [facility] Stop: 08/21/22 08:59 Last Admin: 08/20/22 08:26 Dose: 125 mls/hr Bumetanide 10 mg/ Dextrose 50 mls @ 2.5 mls/hr IV .Q20H [facility] Stop: 09/18/22 17:29 Last Admin: 08/19/22 18:13 Dose: 0.5 mg/hr, 2.5 mls/hr Sodium Chloride (Nss) 250 mls @ 15 mls/hr IV .[id number] PRN PRN Reason: For Transfusion Duration Stop: 08/20/22 17:32 Insulin Aspart (Insulin Aspart Per Unit Charge) 0 units SC ACHS [facility] Stop: 09/18/22 02:29 Last Admin: 08/20/22 08:23 Dose: 4 units Insulin Glargine (Lantus Per Unit Charge) 20 units SC BID [facility] Stop: 09/18/22 20:59 Last Admin: 08/20/22 08:23 Dose: 20 units Levothyroxine Sodium (Levothyroxine Sodium 150 Mcg Tablet) 150 mcg PO DAILYBB [facility] Stop: 09/18/22 06:29 Last Admin: 08/20/22 06:27 Dose: 150 mcg Metoprolol Succinate (Metoprolol Succ 25mg Ext Rel Tab) 25 mg PO HS [facility] Stop: 09/18/22 20:59 Last Admin: 08/19/22 20:39 Dose: 25 mg Miscellaneous (Carbohydrates For Hypoglycemia ) 15 - 30 gm PO UD PRN PRN Reason: Hypoglycemia Protocol Stop: 09/18/22 01:59 Miscellaneous Information (Pharmacy Glycemic Mgmt Consult) 1 each N/A UD PRN PRN Reason: Consult Stop: 09/18/22 01:59 Nitroglycerin (Nitroglycerin 2% Ointment 30gm Tube) 0.5 inch EXT Q6H [facility] Stop: 09/18/22 15:59 Last Admin: 08/20/22 09:38 Dose: 0.5 inch Ondansetron HCl (Ondansetron Inj 2 Mg/Ml 2 Ml Vial) 4 mg IV Q4H PRN PRN Reason: Nausea Stop: 09/18/22 09:30 Potassium Citrate (Potassium Citrate 10 Meq Tab) 10 meq PO BID CHETNA Stop: 09/18/22 08:59 Last Admin: 08/20/22 09:39 Dose: 10 meq Pravastatin Sodium (Pravastatin Sod 40 Mg Tab) 80 mg PO HS [facility] Stop: 09/18/22 20:59 Last Admin: 08/19/22 20:39 Dose: 80 mg PG Care Time/CCT Total # of Minutes Spent Total Time Spent with Patient: Total time spent is greater than 50% in coordination of care (as documented) at patient's floor/unit and/or counseling patient: Coding Level of Care Code 07994 SUB INP/OBS CARE 3/50MIN Diagnoses Acute on chronic heart failure with preserved ejection fraction (HFpEF) I50.33 Acute respiratory failure with hypoxia J96.01 S/P aortic valve replacement with bioprosthetic valve Z95.3 Mitral regurgitation I34.0 Cardiac valve disease etiology: etiology unspecified CAD in [place] artery I25.10 Atrial flutter I48.92 A-fib I48.2 Atrial fibrillation type: permanent Hypertension I10 S/P CABG (coronary artery bypass graft) Z95.1 (4) Mitral regurgitation Cardiac valve disease etiology: etiology unspecified Qualified Code(s): I34.0 - Nonrheumatic mitral (valve) insufficiency (7) A-fib Atrial fibrillation type: permanent Qualified Code(s): I48.2 - Chronic atrial fibrillation
[2022-08-20] MEDS: CETIRIZINE HCL 10 MG TABLET PO PRN (09:39)
[2022-08-20] MEDS: guaiFENesin 600 MG TABCR PO SCH ×2 (09:39→21:18)
[2022-08-20] MEDS: dilTIAZem HCL 240 MG CAPCR PO SCH (09:39)
[2022-08-20] MEDS: POTASSIUM CITRATE 10 MEQ TAB PO SCH ×2 (09:39→21:18)
[2022-08-20] MEDS: allopurinoL 100 MG TAB PO SCH (09:40)
[2022-08-20] MEDS ORDERED: CHLOROTHIAZIDE SODIUM 250 MG in DEXTROSE 5% 50 ML IV ONE (09:45)
--- NOTE | 2022-08-20 12:14 | Ultrasound Report ---
RENAL ULTRASOUND HISTORY: Acute bilateral flank pain r/o obstruction COMPARISON: None. FINDINGS: Limited exam secondary to patient body habitus and positioning. Right kidney: 13.5 cm. No hydronephrosis. Mild cortical thinning with increased echogenicity of the p arenchyma. Left kidney: 12.4 cm. No hydronephrosis. And cortical thinning with increased echogenicity of the par enchyma. Bladder: Decompressed and not diagnostically visualized. IMPRESSION: 1. Limited exam as above. 2. No renal calculi or hydronephrosis identified. 2. Findings suggestive of chronic medical renal disease. ACT 112: Negative or not required by law. Electronically signed by: Tony Bradford M.D. 08/20/2022 12:13 PM
[2022-08-20] MEDS: BUMETANIDE 10 MG in DEXTROSE 5% 10 ML IV SCH (12:17)
--- NOTE | 2022-08-20 15:46 | Nephrology Consultation ---
Date of Consultation August 20, 2022 Assessment & Plan (1) Acute kidney injury superimposed on CKD: Non-oliguric. Electrolytes acceptable. Volume status improving. Baseline creatinine 1.3 mg/dL. Followed by Dr. Alicea. Proteinuria low grade. Urine microscopy acellular. Renal US without obstruction. No emergent indication for SLASHER TENDER. Medications appropriately dosed for kidney function. If there is notable worsening of kidney function, consider dose reduction of pravastatin. Remains on K citrate for history of stones and diuretic use. Document I/O's. Monitor metabolic profile twice daily while on Bumex gtt. (2) Acute on chronic heart failure with preserved ejection fraction (HFpEF): Clinically improving with Bumex gtt + PRN Diuril. Plan to continue same for now. Low sodium diet and daily fluid restriction. Document strict I/O's. Repeat metabolic profile tomorrow AM. No maintained on JHON/ARB due to history of ERIN. Consider revisiting in the future. Defer RAAS blockade and SGLT2i option for now in the acute setting. (3) Pulmonary hypertension: Limited TTE updated during admission. Clinically improving with diuresis. (4) Hypertension: BP acceptable. Remains acceptably rate controlled Afib with metoprolol and d iltiazem. Volume status improving. History of Present Illness Reason for Consultation: acute CHF, not diuresing. repeat stat bmp ordered Requesting Physician: Diogo Holder MD Attending Physician: Diogo Holder MD History of Present Illness Mrs Maria A Bernabe is a 77-year-old female with coronary artery disease status post CABG x 1, severe aortic stenosis status post bioprosthetic aortic valve replacement, heart failure with preserved EF, atrial fibrillation/flutter, diabetes, hypertension, CKD, and dyslipidemia. She follows in the [facility] nephrology clinic with Dr. Alicea for a history of CKD and nephrolithiasis. Maria A follows with Dr. Bucio in the cardiology clinic. The patient's history and plan of care were reviewed with Dr. Bucio this morning. The patient was seen and evaluated in her hospital room with her (Jose G) present. She was resenting comfortably in a recliner on BIPAP. Medical history was primarily obtained through discussion with her , the RN and cardiology, and review of the medical record. At the time of my assessment, Maria A had no acute complaints. She reports improving dyspnea with BIPAP. Ur ine output had increased. She was understandably concerned about her kidney function. Maria A presented to [facility] on August 18 with progressive shortness of breath. She recently returned from visiting family in [place] and [place]. She describes some progressive orthopnea and edema. Urine output was decreased with increased weight and decreased response to diuretics. She also had reportedly experienced some substernal chest discomfort over the past 4 days. In June, Bumex had been increased from 2 mg twice daily to 3 mg twice daily by her cardiology. She received 4 mg IV Bumex followed by a Bumex gtt. Diuril was also provided. An additional 250 mg Diuril was provided this AM. Nitropaste has been applied. Symptoms improving with management. Diuresiing well. Baseline serum creatinine has been 1.3 mg/dL. Proteinuria low grade. Urine has been benign. CKD has been attributed to hypertension and microvascular disease. Creatinine slightly elevated at 1.6 mg/dL this AM. Renal US demonstrating the kidneys to be unobstructed. UA notable for 1+ protein. Urine microscopy acellular. Allergies Allergy/AdvReac Type Severity Reaction Status Date / Time Sulfa (Sulfonamide Allergy Severe ANAPHYLAXIS Verified 08/19/22 00:43 Antibiotics) Home Medications Medication Instructions Recorded Confirmed Type aspirin 81 mg tablet,delayed 81 mg PO QPM ##0 10/19/18 08/19/22 History release (Michael Low Dose Aspirin) azelastine 205.5 mcg (0.15 %) 1 sprays intranasal DAILY PRN 10/22/18 08/19/22 History nasal spray ALLERGIES insulin regular human 100 unit/mL 6 - 8 unit subcut TIDM 11/27/19 08/19/22 History injection solution (Novolin R Regular U-100 Insulin) pravastatin 80 mg tablet 80 mg PO HS #90 tabs 06/05/21 08/19/22 Rx potassium citrate 10 mEq (1,080 1,080 mg PO BID #60 tabs 07/19/21 08/19/22 Rx mg) tablet,extended release insulin NPH isoph U-100 human 100 12 - 16 unit subcut QPM 07/27/21 08/19/22 History unit/mL subcutaneous suspension (Novolin N NPH U-100 Insulin isophane) metoprolol succinate 25 mg 25 mg PO HS #90 tabs 10/25/21 08/19/22 Rx tablet,extended release 24 hr allopurinol 100 mg tablet 100 mg PO DAILY #90 tabs 04/17/22 08/19/22 Rx ergocalciferol (vitamin D2) 1,250 50,000 unit PO MONTHLY #4 caps 04/17/22 08/19/22 Rx mcg (50,000 unit) capsule diltiazem HCl 60 mg tablet 60 mg PO HS #90 tabs 04/18/22 08/19/22 Rx metformin 500 mg tablet,extended 1,000 mg PO BID #360 tabs 06/12/22 08/19/22 Rx release 24 hr diltiazem HCl 240 mg capsule,24 240 mg PO QAM #90 caps 07/05/22 08/19/22 Rx hr,extended release (Tiazac) Wheelchair (Manual) #1 ea 07/12/22 07/30/22 Rx acetaminophen 325 mg capsule 650 mg PO QID PRN pain 07/16/22 08/19/22 History bumetanide 2 mg tablet 3 mg PO BID 08/19/22 08/19/22 History cetirizine 10 mg tablet 10 mg PO QAM PRN Allergy Symptoms 08/19/22 08/19/22 History levothyroxine 150 mcg tablet 150 mcg PO DAILYBB 08/19/22 08/19/22 History warfarin 2 mg tablet 1 mg PO 3XWK 08/19/22 08/19/22 History warfarin 2 mg tablet 2 mg PO 4XWK 08/19/22 08/19/22 History Patient History Medical History (Updated 08/20/22 @ 16:15 by Mike Clancy DO) A-fib On Warfarin>FOLLOWED DR. BUCIO Aortic stenosis Atrial flutter Chronic diastolic congestive heart failure Colon polyps Coronary artery disease S/P CABG x 1 with AVR 2017. Diabetic peripheral neuropathy History of loop recorder Implanted AND REMOVED Hx of malignant melanoma of skin s/p simple excision Hyperlipemia Hypertension Hypothyroidism Obesity, morbid, BMI 40.0-49.9 Pulmonary hypertension Seasonal allergies Type 2 diabetes mellitus Vitamin D deficiency Surgical History (Updated 08/19/22 @ 17:52 by Joel Bucio MD) H/O aortic valve replacement 2017 [facility] ALSO HAD CABG X1 VESSEL H/O cardiac catheterization [facility] - PRIOR TO 2017 SURGERY History of carpal tunnel release of both wrists History of colonoscopy History of partial hysterectomy History of transesophageal echocardiography ([facility]) PRIOR TO SURGERY 2016 Hx of cyst of breast s/p excision Hx of right cataract extraction Hx of tonsillectomy S/P CABG (coronary artery bypass graft) Status post hernia repair (11/24/18) Umbilical hernia with multiple defects with surgimesh 11/24/18 Dr. Chapman Pollok teeth removed Family History Mother Family history of diabetes mellitus Grandmother (Maternal) Family history of diabetes mellitus Grandmother (Paternal) Family history of diabetes mellitus Aunt Family history of diabetes mellitus Uncle Family history of diabetes mellitus Father FHx: colon cancer Other FHx: esophageal cancer FHx: heart disease No family history of adverse response to anesthesia Social History Smoking Status: Never smoker Second Hand Exposure: No; Do You Dip or Chew Tobacco: No; Tobacco Cessation Education Requested by Patient: No Hx Alcohol Use: No Hx Substance Use: No Preferred Language: Sami Communication Ability: Effective Visual Impairment: No Limitations Casing Finisher And Stuffer Required: No Beliefs That Will Affect Care: None marital status: Current Living Situation: Spouse Other Information That Helps Us Care for You: No Feels Safe at Home: Yes Safety Concerns: Feels Safe At This Time caffeine: No Seatbelt Use: always Assistive Devices: Walker Review of Systems Review of Systems: All systems reviewed & are unremarkable except as noted in HPI & below Physical Exam Constitutional: well developed, + obese and + frail appearing; no acute distress Eyes: + anicteric sclerae; no corneal abnormality ENMT: BIPAP Neck: normal visual inspection, trachea midline and + thick neck Respiratory: + tachypneic Auscultation: + rhonchi Cardiovascular: Rate/Rhythm: + irregularly irregular Heart Sounds: normal S1, normal S2 and + murmur Vessels: + JVD Extremities: + edema Musculoskeletal: Extremities: no cyanosis and no clubbing Skin: + turgor decreased; no jaundice Neurologic: Motor/Sensory: no tremor and no asterixis Psychiatric: Orientation: alert and oriented x 3 Genitourinary: [place]il[place] wtih clear yellow urine in bag Results & Data Vital Signs (Past 12 Hours) Vital Signs Temp Pulse Pulse Resp BP BP Pulse Ox 08/20/22 11:12 36.7 C 92 H 25 H 134/76 92 08/20/22 10:50 92 H 36 H 93 08/20/22 08:00 08/20/22 09:09 94 H 28 H 91 08/20/22 07:32 36.5 C 100 H 20 135/69 95 08/20/22 07:21 81 12 95 08/20/22 07:20 85 27 H 95 08/20/22 05:20 36.4 C L 94 H 24 157/80 H 97 O2 Del Method FiO2 08/20/22 11:12 BiPAP 60 08/20/22 10:50 60 08/20/22 08:00 BiPAP 08/20/22 09:09 60 08/20/22 07:32 BiPAP 55 08/20/22 07:21 55 08/20/22 07:20 BiPAP 55 08/20/22 05:20 BiPAP Laboratory Results Laboratory Results - last 24 hr 08/19/22 08/19/22 08/19/22 16:26 16:41 20:25 WBC RBC Hgb Hct MCV MCH MCHC RDW Std Deviation RDW Coeff of [place] Plt Count MPV PT INR ABG pH ABG pCO2 ABG pO2 ABG HCO3 ABG O2 Saturation ABG Base Excess Shawn Test Oxygen Given Sodium 140 Potassium 4.1 Chloride 103 Carbon Dioxide 27 Anion Gap 10 BUN 40 H Creatinine 1.42 H Est Cr Clr Drug Dosing 44.4 Est GFR ( Amer) 41.8 Est GFR (Non-Af Amer) 36.0 BUN/Creatinine Ratio 28.2 H Glucose 199 H POC Glucose 201 H 164 H Calcium 9.6 Blood Type 08/20/22 08/20/22 08/20/22 05:37 05:42 05:42 WBC 12.66 H RBC 4.11 L Hgb 11.5 L Hct 36.6 L MCV 89.1 MCH 28.0 MCHC 31.4 L RDW Std Deviation 51.0 H RDW Coeff of [place] 15.7 H Plt Count 237 MPV 11.0 PT > 90.0 H INR > 9.5 H* ABG pH ABG pCO2 ABG pO2 ABG HCO3 ABG O2 Saturation ABG Base Excess Shawn Test Oxygen Given Sodium 140 Potassium 4.2 Chloride 102 Carbon Dioxide 28 Anion Gap 10 BUN 46 H Creatinine 1.59 H Est Cr Clr Drug Dosing 39.7 Est GFR ( Amer) 36.4 Est GFR (Non-Af Amer) 31.4 BUN/Creatinine Ratio 28.9 H Glucose 181 H POC Glucose Calcium 9.7 Blood Type 08/20/22 08/20/22 08/20/22 06:04 07:56 08:38 WBC RBC Hgb Hct MCV MCH MCHC RDW Std Deviation RDW Coeff of [place] Plt Count MPV PT INR ABG pH ABG pCO2 ABG pO2 ABG HCO3 ABG O2 Saturation ABG Base Excess Shawn Test Oxygen Given Sodium Potassium Chloride Carbon Dioxide Anion Gap BUN Creatinine Est Cr Clr Drug Dosing Est GFR ( Amer) Est GFR (Non-Af Amer) BUN/Creatinine Ratio Glucose POC Glucose 181 H 194 H Calcium Blood Type O Positive 08/20/22 08/20/22 08:38 12:08 WBC RBC Hgb Hct MCV MCH MCHC RDW Std Deviation RDW Coeff of [place] Plt Count MPV PT INR ABG pH 7.25 L ABG pCO2 63 H ABG pO2 71 L ABG HCO3 28 H ABG O2 Saturation 94.8 ABG Base Excess -1.0 Shawn Test Pos Oxygen Given 55% Sodium Potassium Chloride Carbon Dioxide Anion Gap BUN Creatinine Est Cr Clr Drug Dosing Est GFR ( Amer) Est GFR (Non-Af Amer) BUN/Creatinine Ratio Glucose POC Glucose 189 H Calcium Blood Type Diagnostic Findings RENAL ULTRASOUND FINDINGS: Right kidney: 13.5 cm. No hydronephrosis. Mild cortical thinning with increased echogenicity of the parenchyma. Left kidney: 12.4 cm. No hydronephrosis. And cortical thinning with increased echogenicity of the parenchyma. Bladder: Decompressed and not diagnostically visualized. IMPRESSION: 1. Limited exam as above. 2. No renal calculi or hydronephrosis identified. 2. Findings suggestive of chronic medical renal disease. XR chest 1V portable FINDINGS: Cardiac silhouette is enlarged. Prior median sternotomy with cardiac valvular prosthesis in septal occlusion device. No pneumothorax. Pulmonary vascular congestion with interstitial coarsening. Small pleural effusions, left greater than right with bibasilar patchy consolidation. Degenerative changes of the shoulders and spine. IMPRESSION: 1. Cardiomegaly with mild pulmonary edema. 2. Small pleural effusions with patchy bibasilar consolidative opacities. Correlate clinically to exclude pneumonia. PG Care Time/CCT Total # of Minutes Spent Total Time Spent with Patient: Total time spent is greater than 50% in coordination of care (as documented) at patient's floor/unit and/or counseling patient: Coding Level of Care Code 73590 IN/OBS CONSULT LVL 4,60M Diagnoses Acute kidney injury superimposed on CKD N17.9; N18.9 Acute on chronic heart failure with preserved ejection fraction (HFpEF) I50.33 Pulmonary hypertension I27.20 Hypertension I10
[2022-08-20] MEDS: ALBUT/IPRATROP 3MG/0.5MG NEB 3 ML VIAL NEB PRN (16:04)
--- NOTE | 2022-08-20 16:08 | Hospitalist Progress Note ---
Date of Service August 20, 2022 Assessment & Plan (1) Acute on chronic heart failure with preserved ejection fraction (HFpEF): Plan: Patient presented with clear signs of acute CHF exacerbation Chest x-ray congested BNP elevated at 318 Patient with increased weight and leg swelling She was initially given several doses of Lasix followed by Bumex with not much diuretic response Cardiology and nephrology were consulted The patient was started on a Bumex drip The patient was started on BiPAP after she initially refused it and later on agreed. She is diuresing in response to the Bumex drip Today she appears much improved from a respiratory standpoint TTE did not show any depressed EF Most likely diastolic CHF Plan to continue Bumex drip Monitor strict I's and O's, daily weights Cardiology recommends continuing beta-wing and statin. Ischemic etiology will be reassessed when volume status improves (2) Acute respiratory failure with hypoxia: Plan: Improved today clinically ABG shows hypercarbic respiratory failure BiPAP settings being changed by respiratory therapy Continue CHF treatment with Bumex drip (3) Uncontrolled type 2 diabetes mellitus with neurologic complication, with long-term current use of insulin: Plan: Continue sliding scale insulin (4) S/P aortic valve replacement with bioprosthetic valve: Plan: Appropriately functioning bioprosthetic aortic valve (5) A-fib: Plan: Continue beta-wing and diltiazem INR supratherapeutic at greater than 9 No bleeding Ordered vitamin K 10 mg IV Monitor INR closely Hold Coumadin until INR lower Plan Continue Bumex drip Continue BiPAP Admission and Anticipated Discharge Date Admission Date: August 19, 2022 Subjective Patient had initially refused BiPAP last night. However she agreed to avoid overnight and was on BiPAP all night. She was also on a Bumex drip good diuretic response. This morning, she remains on BiPAP. She appears drowsy but breathing more comfortably. Review of Systems Review of Systems: All systems reviewed & are unremarkable except as noted in Subjective Physical Exam Physical Exam: General: Drowsy, arousable. Has BiPAP on. Does not appear to be in severe respiratory distress. Heart: S1, S2/regular rate and rhythm, no murmur rubs or gallops Lungs: Bilateral wheezing and bibasilar crackles. Normal effort Abdomen: Soft/nontender/nondistended. No hepatosplenomegaly Extremities: No clubbing/cyanosis. Less edema today. 1+ bilateral pitting edema Behavior: Appropriate, cooperative Results & Data Results & Data Vital Signs (Past 12 Hours) Vital Signs Temp Pulse Pulse Resp BP BP Pulse Ox 08/20/22 11:12 36.7 C 92 H 25 H 134/76 92 08/20/22 10:50 92 H 36 H 93 08/20/22 08:00 08/20/22 09:09 94 H 28 H 91 08/20/22 07:32 36.5 C 100 H 20 135/69 95 08/20/22 07:21 81 12 95 08/20/22 07:20 85 27 H 95 08/20/22 05:20 36.4 C L 94 H 24 157/80 H 97 O2 Del Method FiO2 08/20/22 11:12 BiPAP 60 08/20/22 10:50 60 08/20/22 08:00 BiPAP 08/20/22 09:09 60 08/20/22 07:32 BiPAP 55 08/20/22 07:21 55 08/20/22 07:20 BiPAP 55 08/20/22 05:20 BiPAP Laboratory Results Abnormal lab results 08/19/22 08/19/22 08/19/22 Range/Units 16:26 16:41 20:25 WBC (4.8-10.8) K/ul RBC (4.20-5.40) M/uL Hgb (12.0-16.0) g/dl Hct (37.0-47.0) % MCHC (32.0-36.0) g/dL RDW Std Deviation (36.4-46.3) fL RDW Coeff of Salvador (11.5-14.5) % PT (9.0-12.0) Seconds INR (0.9-1.1) ABG pH (7.35-7.45) ABG pCO2 (35-46) mmHg ABG pO2 (80-95) mmHg ABG HCO3 (19-24) mmol/L BUN 40 H (6-23) mg/dl Creatinine 1.42 H (0.6-1.2) mg/dl BUN/Creatinine Ratio 28.2 H (10-20) Glucose 199 H (70-99(Fasting)) mg/dl POC Glucose 201 H 164 H (70-99) mg/dl 08/20/22 08/20/22 08/20/22 Range/Units 05:37 05:42 05:42 WBC 12.66 H (4.8-10.8) K/ul RBC 4.11 L (4.20-5.40) M/uL Hgb 11.5 L (12.0-16.0) g/dl Hct 36.6 L (37.0-47.0) % MCHC 31.4 L (32.0-36.0) g/dL RDW Std Deviation 51.0 H (36.4-46.3) fL RDW Coeff of Salvador 15.7 H (11.5-14.5) % PT > 90.0 H (9.0-12.0) Seconds INR > 9.5 H* (0.9-1.1) ABG pH (7.35-7.45) ABG pCO2 (35-46) mmHg ABG pO2 (80-95) mmHg ABG HCO3 (19-24) mmol/L BUN 46 H (6-23) mg/dl Creatinine 1.59 H (0.6-1.2) mg/dl BUN/Creatinine Ratio 28.9 H (10-20) Glucose 181 H (70-99(Fasting)) mg/dl POC Glucose (70-99) mg/dl 08/20/22 08/20/22 08/20/22 Range/Units 06:04 07:56 08:38 WBC (4.8-10.8) K/ul RBC (4.20-5.40) M/uL Hgb (12.0-16.0) g/dl Hct (37.0-47.0) % MCHC (32.0-36.0) g/dL RDW Std Deviation (36.4-46.3) fL RDW Coeff of Salvador (11.5-14.5) % PT (9.0-12.0) Seconds INR (0.9-1.1) ABG pH 7.25 L (7.35-7.45) ABG pCO2 63 H (35-46) mmHg ABG pO2 71 L (80-95) mmHg ABG HCO3 28 H (19-24) mmol/L BUN (6-23) mg/dl Creatinine (0.6-1.2) mg/dl BUN/Creatinine Ratio (10-20) Glucose (70-99(Fasting)) mg/dl POC Glucose 181 H 194 H (70-99) mg/dl 08/20/22 Range/Units 12:08 WBC (4.8-10.8) K/ul RBC (4.20-5.40) M/uL Hgb (12.0-16.0) g/dl Hct (37.0-47.0) % MCHC (32.0-36.0) g/dL RDW Std Deviation (36.4-46.3) fL RDW Coeff of Salvador (11.5-14.5) % PT (9.0-12.0) Seconds INR (0.9-1.1) ABG pH (7.35-7.45) ABG pCO2 (35-46) mmHg ABG pO2 (80-95) mmHg ABG HCO3 (19-24) mmol/L BUN (6-23) mg/dl Creatinine (0.6-1.2) mg/dl BUN/Creatinine Ratio (10-20) Glucose (70-99(Fasting)) mg/dl POC Glucose 189 H (70-99) mg/dl Diagnostic Findings Renal Ultrasound 08/20/22 00:00 RENAL ULTRASOUND HISTORY: Acute bilateral flank pain r/o obstruction COMPARISON: None. FINDINGS: Limited exam secondary to patient body habitus and positioning. Right kidney: 13.5 cm. No hydronephrosis. Mild cortical thinning with increased echogenicity of the parenchyma. Left kidney: 12.4 cm. No hydronephrosis. And cortical thinning with increased echogenicity of the parenchyma. Bladder: Decompressed and not diagnostically visualized. IMPRESSION: 1. Limited exam as above. 2. No renal calculi or hydronephrosis identified. 2. Findings suggestive of chronic medical renal disease. ACT 112: Negative or not required by law. Electronically signed by: Tony Bradford M.D. 08/20/2022 12:13 PM PG Care Time/CCT Total # of Minutes Spent Total Time Spent with Patient: Total time spent is greater than 50% in coordination of care (as documented) at patient's floor/unit and/or counseling patient: Coding Level of Care Code 30801 SUB INP/OBS CARE 2/35MIN Diagnoses Acute on chronic heart failure with preserved ejection fraction (HFpEF) I50.33 Acute respiratory failure with hypoxia J96.01 Uncontrolled type 2 diabetes mellitus with neurologic complication, with long- term current use of insulin E11.49; E11.65; Z79.4 S/P aortic valve replacement with bioprosthetic valve Z95.3 A-fib I48.2 Atrial fibrillation type: permanent (5) A-fib Atrial fibrillation type: permanent Qualified Code(s): I48.2 - Chronic atrial fibrillation
[2022-08-20 16:23] LABS: iSTAT Allen Test Pass; iSTAT Art Bld Gas pCO2 Correct 59 mmHg (35-46); iSTAT Art Bld Gas pH Corrected 7.316 (7.35-7.45); iSTAT Arterial Blood Gas HCO3 30 meg/L (19-24); iSTAT Arterial Blood Gas pCO2 59 mmHg (35-46); iSTAT Arterial Blood Gas pH 7.32 (7.35-7.45); iSTAT Arterial Blood Gas pO2 54 mmHg (80-95); iSTAT Arterial Blood Gas pO2 C 54; iSTAT Carbon Dioxide 32 mmol/L (24-31); iSTAT FiO2 50 %; iSTAT Hematocrit 32 % (37-47); iSTAT Hemoglobin 10.9 g/dl (12.0-16.0); iSTAT Potassium 3.9 mmol/L (3.3-5.0); iSTAT Site L Radial; iSTAT Sodium 140 mmol/L (135-144)
[2022-08-20 17:02] LABS: Calcium 9.9 mg/dl (8.6-10.3); Creatinine Clr Calc Pharmacy 40.7 ml/min; Est GFR (African American) 37.6 ml/min; Est GFR (Non-African American) 32.4 ml/min
[2022-08-20] MEDS: ASPIRIN 81 MG ECTAB PO SCH (21:18)
[2022-08-20] MEDS: dilTIAZem HCl 60 MG TAB PO SCH (21:19)
[2022-08-20] MEDS: PRAVASTATIN SOD 40 MG TAB PO SCH (21:19)
[2022-08-20] MEDS: METOPROLOL SUCC 25MG EXT REL TAB PO SCH (21:20)
--- NOTE | 2022-08-20 21:55 | Electrocardiogram Report ---
Test Reason : Blood Pressure : / mmHG Vent. Rate : 106 BPM Atrial Rate : 000 BPM P-R Int : 000 ms QRS Dur : 162 ms QT Int : 416 ms P-R-T Axes : 000 -37 137 degrees QTc Int : 552 ms Poor data quality, interpretation may be adversely affected Possible Atrial fibrillation with rapid ventricular response with premature ventricular or aberrantly conducted complexes Left axis deviation Left bundle branch block Abnormal ECG When compared with ECG of 11-DEC-2019 17:02, Left bundle branch block is now Present Confirmed by Joel Miller ([id number]) on 08/20/2022 9:55:25 PM Referred By: REFERRED SELF Confirmed By:Joel Miller
[2022-08-21] MEDS: BUMETANIDE 10 MG in DEXTROSE 5% 10 ML IV SCH (02:07)
[2022-08-21] MEDS: NITROGLYCERIN 2% OINTMENT 30GM TUBE EXT SCH ×4 (04:25→23:22)
[2022-08-21] MEDS: LEVOTHYROXINE SODIUM 150 MCG TABLET PO SCH (05:58)
[2022-08-21 06:34] LABS: Albumin Level 3.7 gm/dl (3.4-5.0); BUN Creatinine Ratio 36.1 (10-20); Calcium 9.4 mg/dl (8.6-10.3); Creatinine Clr Calc Pharmacy 40.7 ml/min; Est GFR (African American) 37.6 ml/min; Est GFR (Non-African American) 32.4 ml/min; Magnesium 2.2 mg/dl (1.7-2.4); Phosphorus 4.4 mg/dl (2.5-4.9); Potassium 3.7 mmol/L (3.5-5.1)
[2022-08-21 06:36] LABS: Hematocrit (blood only) 33.6 % (37.0-47.0); Hemoglobin 10.6 g/dl (12.0-16.0); Mean Corpuscular Hgb Conc 31.5 g/dL (32.0-36.0); Mean Corpuscular Volume 88.7 fL (80.0-100.0); Mean Platelet Volume 10.4 fL (9.4-12.4); Platelet Count 250 K/uL (130-400); RDW Coefficient of Variation 15.4 % (11.5-14.5); RDW Standard Deviation 49.2 fL (36.4-46.3); Red Blood Count 3.79 M/uL (4.20-5.40); White Blood Count 15.53 K/ul (4.8-10.8)
[2022-08-21 06:44] LABS: INR 1.4 (0.9-1.1); Prothrombin Time 15.5 Seconds (9.0-12.0)
[2022-08-21] MEDS: ALBUT/IPRATROP 3MG/0.5MG NEB 3 ML VIAL NEB PRN (07:55)
[2022-08-21 08:27] LABS: Base Excess ABG 5.6 mEq/L (-9-1.8); HCO3 ABG 33 mmol/L (19-24); Oxygen Saturation ABG 98.1 % (90-95); PCO2 ABG 60 mmHg (35-46); PO2 ABG 90 mmHg (80-95); pH ABG 7.35 (7.35-7.45)
[2022-08-21 08:32] LABS: Allen Test Pos (Pos)
[2022-08-21] MEDS: INSULIN ASPART PER UNIT CHARGE SC SCH ×4 (08:46→21:14)
[2022-08-21] MEDS: LANTUS PER UNIT CHARGE SC SCH ×2 (08:47→21:15)
[2022-08-21] MEDS: allopurinoL 100 MG TAB PO SCH (08:48)
[2022-08-21] MEDS: dilTIAZem HCL 240 MG CAPCR PO SCH (08:48)
[2022-08-21] MEDS: POTASSIUM CITRATE 10 MEQ TAB PO SCH ×2 (08:48→20:37)
[2022-08-21] MEDS: guaiFENesin 600 MG TABCR PO SCH ×2 (08:48→20:34)
[2022-08-21] MEDS: CETIRIZINE HCL 10 MG TABLET PO PRN (08:48)
--- NOTE | 2022-08-21 10:24 | Nephrology Progress Note ---
Date of Service August 21, 2022 Assessment & Plan (1) Acute kidney injury superimposed on CKD: Plan: Non-oliguric. Electrolytes acceptable. Volume status improving. Baseline creatinine 1.3 mg/dL. Followed by Dr. Alicea. Proteinuria low grade. Urine microscopy acellular. Renal US without obstruction. 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 Medications appropriately dosed for kidney function. If there is notable worsening of kidney function, consider dose reduction of pravastatin. Remains on K citrate for history of stones and diuretic use. Document I/O's. Monitor metabolic profile twice daily while on Bumex gtt. (2) Acute on chronic heart failure with preserved ejection fraction (HFpEF): Plan: Clinically improving with Bumex gtt + PRN Diuril. Plan to continue same for now. Remains on Bumex at 0.5 mg/hr. Additional 250 mg Diuril provided this AM with 20 mEq KCl. Plan of care reviewed with Dr. Miller. As volume status improves, may hold Bumex gtt later today. Low sodium diet and daily fluid restriction. Document strict I/O's. Repeat metabolic profile this afternoon and tomorrow AM. Not maintained on JHON/ARB due to history of ERIN. Consider revisiting in the future. Defer RAAS blockade and SGLT2i option for now in the acute setting. (3) Pulmonary hypertension: Plan: Clinically improving with diuresis. BIPAP being weaned off currently. (4) Hypertension: Plan: BP acceptable. Remains acceptably rate controlled Afib with metoprolol and di ltiazem. Moderately hypotensive with intravascular volume depletion and current therapy. Admission and Anticipated Discharge Date Admission Date: August 19, 2022 Subjective No acute events overnight. Excellent urine output with Bumex gtt and chlorothiazide. Volume status improving. Respiratory therapy to remove BIPAP. Maria A is very tired this morning. Activity tolerance remains poor. Confined to chair. Did not participate in conversation. No fevers or chills. Complains of discomfort from NRB mask. Review of Systems Review of Systems: All systems reviewed & are unremarkable except as noted in HPI & below and Unobtainable due to cognitive status (limited due to BIPAP and mental status) Physical Exam Constitutional: well developed, + obese and + frail appearing; no acute distress Eyes: + anicteric sclerae; no corneal abnormality Neck: normal visual inspection, trachea midline and + thick neck Respiratory: + tachypneic Auscultation: + rhonchi Cardiovascular: Rate/Rhythm: + irregularly irregular Heart Sounds: normal S1, normal S2 and + murmur Extremities: + edema (improving) Musculoskeletal: Extremities: no cyanosis and no clubbing Skin: + turgor decreased; no jaundice Neurologic: Motor/Sensory: no tremor and no asterixis Psychiatric: Orientation: alert and cooperative Results & Data Vital Signs (Past 12 Hours) Vital Signs Temp Pulse Pulse Resp BP Pulse Ox O2 Del Method 08/21/22 07:50 89 26 H 97 08/21/22 07:11 36.6 C 98 H 22 108/66 95 CPAP 08/21/22 03:00 37.2 C 90 20 125/87 97 BiPAP 08/21/22 03:09 76 27 H 96 08/20/22 23:00 104 H 08/20/22 23:25 36.8 C 97 H 20 123/73 95 BiPAP 08/20/22 23:02 94 H 26 H 96 FiO2 08/21/22 07:50 60 08/21/22 07:11 60 08/21/22 03:00 08/21/22 03:09 60 08/20/22 23:00 08/20/22 23:25 08/20/22 23:02 70 Laboratory Results Laboratory Results - last 24 hr 08/20/22 08/20/22 08/20/22 12:08 15:47 16:26 WBC RBC Hgb POC Hgb 10.9 L Hct POC Hct 32 L MCV MCH MCHC RDW Std Deviation RDW Coeff of [place] Plt Count MPV PT INR Sample Site L Radial POC pH 7.32 L POC pCO2 59 H POC pO2 54 L POC HCO3 30 H POC Total CO2 32 H POC Base Excess 4.0 H ABG pH ABG pH (Temp Correct) 7.316 L ABG pCO2 ABG pCO2 (Temp Corrct 59 H ABG pO2 POC ABG pO2 at Pt Temp 54 ABG HCO3 POC ABG O2 Sat 84.0 L ABG O2 Saturation ABG Base Excess Shawn Test Pass Oxygen Given O2 Delivery Device BIPAP POC O2 Rate 16 POC FiO2 50 IPAP 15 POC Sodium 140 Sodium 140 POC Potassium 3.9 Potassium 4.0 Chloride 101 Carbon Dioxide 31 Anion Gap 8 BUN 48 H Creatinine 1.55 H Est Cr Clr Drug Dosing 40.7 Est GFR ( Amer) 37.6 Est GFR (Non-Af Amer) 32.4 BUN/Creatinine Ratio 31.0 H Glucose 170 H POC Glucose 189 H Calcium 9.9 Phosphorus Magnesium Albumin 08/20/22 08/20/22 08/21/22 16:55 20:44 05:29 WBC RBC Hgb POC Hgb Hct POC Hct MCV MCH MCHC RDW Std Deviation RDW Coeff of [place] Plt Count MPV PT 15.5 H INR 1.4 H Sample Site POC pH POC pCO2 POC pO2 POC HCO3 POC Total CO2 POC Base Excess ABG pH ABG pH (Temp Correct) ABG pCO2 ABG pCO2 (Temp Corrct ABG pO2 POC ABG pO2 at Pt Temp ABG HCO3 POC ABG O2 Sat ABG O2 Saturation ABG Base Excess Shawn Test Oxygen Given O2 Delivery Device POC O2 Rate POC FiO2 IPAP POC Sodium Sodium POC Potassium Potassium Chloride Carbon Dioxide Anion Gap BUN Creatinine Est Cr Clr Drug Dosing Est GFR ( Amer) Est GFR (Non-Af Amer) BUN/Creatinine Ratio Glucose POC Glucose 163 H 149 H Calcium Phosphorus Magnesium Albumin 08/21/22 08/21/22 08/21/22 05:29 05:29 08:05 WBC 15.53 H RBC 3.79 L Hgb 10.6 L POC Hgb Hct 33.6 L POC Hct MCV 88.7 MCH 28.0 MCHC 31.5 L RDW Std Deviation 49.2 H RDW Coeff of [place] 15.4 H Plt Count 250 MPV 10.4 PT INR Sample Site POC pH POC pCO2 POC pO2 POC HCO3 POC Total CO2 POC Base Excess ABG pH 7.35 ABG pH (Temp Correct) ABG pCO2 60 H ABG pCO2 (Temp Corrct ABG pO2 90 POC ABG pO2 at Pt Temp ABG HCO3 33 H POC ABG O2 Sat ABG O2 Saturation 98.1 H ABG Base Excess 5.6 H Shawn Test Pos Oxygen Given O2 Delivery Device POC O2 Rate POC FiO2 IPAP POC Sodium Sodium 144 POC Potassium Potassium 3.7 Chloride 103 Carbon Dioxide 32 Anion Gap 9 BUN 56 H Creatinine 1.55 H Est Cr Clr Drug Dosing 40.7 Est GFR ( Amer) 37.6 Est GFR (Non-Af Amer) 32.4 BUN/Creatinine Ratio 36.1 H Glucose 128 H POC Glucose Calcium 9.4 Phosphorus 4.4 Magnesium 2.2 Albumin 3.7 08/21/22 08:11 WBC RBC Hgb POC Hgb Hct POC Hct MCV MCH MCHC RDW Std Deviation RDW Coeff of [place] Plt Count MPV PT INR Sample Site POC pH POC pCO2 POC pO2 POC HCO3 POC Total CO2 POC Base Excess ABG pH ABG pH (Temp Correct) ABG pCO2 ABG pCO2 (Temp Corrct ABG pO2 POC ABG pO2 at Pt Temp ABG HCO3 POC ABG O2 Sat ABG O2 Saturation ABG Base Excess Shawn Test Oxygen Given O2 Delivery Device POC O2 Rate POC FiO2 IPAP POC Sodium Sodium POC Potassium Potassium Chloride Carbon Dioxide Anion Gap BUN Creatinine Est Cr Clr Drug Dosing Est GFR ( Amer) Est GFR (Non-Af Amer) BUN/Creatinine Ratio Glucose POC Glucose 147 H Calcium Phosphorus Magnesium Albumin PG Care Time/CCT Total # of Minutes Spent Total Time Spent with Patient: Total time spent is greater than 50% in coordination of care (as documented) at patient's floor/unit and/or counseling patient: Coding Level of Care Code 38063 SUB INP/OBS CARE 3/50MIN Diagnoses Acute kidney injury superimposed on CKD N17.9; N18.9 Acute on chronic heart failure with preserved ejection fraction (HFpEF) I50.33 Pulmonary hypertension I27.20 Hypertension I10
[2022-08-21] MEDS ORDERED: POTASSIUM CHLORIDE CRTAB 20 MEQ TABCR PO STA (10:27)
[2022-08-21] MEDS ORDERED: CHLOROTHIAZIDE SODIUM 250 MG in DEXTROSE 5% 50 ML IV ONE (10:45)
[2022-08-21] MEDS: ACETAMINOPHEN 325 MG TAB PO PRN (10:52)
--- NOTE | 2022-08-21 11:12 | Cardiology Progress Note ---
Date of Service August 21, 2022 Assessment & Plan (1) Acute on chronic heart failure with preserved ejection fraction (HFpEF): (2) Acute respiratory failure with hypoxia: (3) S/P aortic valve replacement with bioprosthetic valve: (4) Mitral regurgitation: (5) CAD in [place] artery: (6) Atrial flutter: (7) A-fib: (8) Hypertension: (9) S/P CABG (coronary artery bypass graft): Plan ASSESSMENT/PLAN: 1. Acute on chronic heart failure with preserved EF: Volume status improving. Very good urine output in the past 24 hours. Continue Bumex drip for now, but can consider replacing drip with scheduled dosing later today if continued improvement. Nephrology has placed order an additional Diuril 250 mg IV x1 this morning. Nitro paste ordered for preload reduction and hypertension (08/19/22). Has tolerated BiPAP. Oxygenation improved. Strict I's and O's. Daily weights. Goal net negative I's and O's today 1 to 2 L negative. Can consider SGLT2 inhibitor in the future. 2. Acute respiratory failure with hypoxia: Has looked much more comfortable on BiPAP. Acidemia improved on this morning's ABG. Chest x-ray ordered. Worsening leukocytosis. 3. CAD s/p CABG (ANDRADE to LAD): Intermittent chest discomfort in the setting of CHF exacerbation. High-sensitivity troponin despite prolonged episodes, does not suggest acute coronary syndrome. Has not reported any further chest discomfort. Continue beta-wing and statin therapy. LBBB on initial ECG but bundle branch block also noted on outpatient echo in June. 4. Aortic valve replacement: Recent echo demonstrated appropriately functioning bioprosthetic aortic valve (06/29/2022). SBE prophylaxis for dental procedures. 5. Atrial flutter/fibrillation: Permanent. Continue beta-wing and diltiazem. Heart rate has improved with improved respiratory status. Continue anticoagulation for stroke risk reduction. INR was supratherapeutic, likely related to hepatic congestion. She has received vitamin K by hospitalist. INR now subtherapeutic. Can use heparin gtt for now. She has undergone left atrial appendage ablation with 35mm atrial clip. She has declined NOAC. 6. Hypertension: Blood pressure has improved with diuresis and nitroglycerin application. Normotensive today. 7. Mitral regurgitation: Not fully interrogated on this hospitalized echo due to decompensation. Can be evaluated further when able to tolerate echo. 8. Leukocytosis and confusion: As per primary hospitalist service. Repeat chest x-ray. Consider infection evaluation. 9. Disposition: Cardiology will continue to follow. Heart failure program referral. Updated Dr. Holder of the hospitalist service. Discussed with Dr. Clancy of Nephrology. Care discussed with nursing staff. Updated her via telephone. Admission and Anticipated Discharge Date Admission Date: August 19, 2022 Subjective BiPAP was removed this morning and she was placed on mask. Nursing staff reports that when BiPAP was removed for medications, her oxygen saturation remained normal on room air. She has been confused this morning, even on BiPAP however. In her current confused state, she states that she is short of breath but denies chest pain. She thinks she is in [place]. She was unaccompanied in her hospital room. Physical Exam Physical Exam: Gen.: No acute distress. Alert. Oriented to self and year. HEENT: Anicteric sclera. Neck: Improved JVD, but still elevated. Thick neck. Cardiac: No ventricular heave. Irregularly irregular. Normal S1-S2. 1/6 early peaking systolic ejection murmur heard best at right upper sternal border. No rubs or gallops. Pulmonary: Decreased breath sounds throughout. Coarse breath sounds bilaterally. Abdomen: Obese. Soft, nontender, nondistended, with normoactive bowel sounds. No bruits noted. Extremities: 2+ radial pulses bilaterally. 2+ bilateral lower extremity edema to the knees (improved). No cyanosis. Results & Data Vital Signs (Past 12 Hours) Vital Signs Temp Pulse Pulse Resp BP Pulse Ox O2 Del Method 08/21/22 07:50 89 26 H 97 08/21/22 07:11 36.6 C 98 H 22 108/66 95 CPAP 08/21/22 03:00 37.2 C 90 20 125/87 97 BiPAP 08/21/22 03:09 76 27 H 96 08/20/22 23:25 36.8 C 97 H 20 123/73 95 BiPAP FiO2 08/21/22 07:50 60 08/21/22 07:11 60 08/21/22 03:00 08/21/22 03:09 60 08/20/22 23:25 Intake & Output 08/19/22 08/20/22 08/21/22 06/07/23 06:59 06:59 06:59 06:59 Intake Total 200 / 200 774 / 774 444.750 / 444.750 Output Total 150 / 150 1350 / 1350 2400 / 2400 Balance 50 / 50 -576 / -576 -1955.250 / -1955.250 Weight 256 lb 13.416 oz Laboratory Results Laboratory Results - last 24 hr 08/20/22 08/20/22 08/20/22 12:08 15:47 16:26 WBC RBC Hgb POC Hgb 10.9 L Hct POC Hct 32 L MCV MCH MCHC RDW Std Deviation RDW Coeff of [place] Plt Count MPV PT INR Sample Site L Radial POC pH 7.32 L POC pCO2 59 H POC pO2 54 L POC HCO3 30 H POC Total CO2 32 H POC Base Excess 4.0 H ABG pH ABG pH (Temp Correct) 7.316 L ABG pCO2 ABG pCO2 (Temp Corrct 59 H ABG pO2 POC ABG pO2 at Pt Temp 54 ABG HCO3 POC ABG O2 Sat 84.0 L ABG O2 Saturation ABG Base Excess Shawn Test Pass Oxygen Given O2 Delivery Device BIPAP POC O2 Rate 16 POC FiO2 50 IPAP 15 POC Sodium 140 Sodium 140 POC Potassium 3.9 Potassium 4.0 Chloride 101 Carbon Dioxide 31 Anion Gap 8 BUN 48 H Creatinine 1.55 H Est Cr Clr Drug Dosing 40.7 Est GFR ( Amer) 37.6 Est GFR (Non-Af Amer) 32.4 BUN/Creatinine Ratio 31.0 H Glucose 170 H POC Glucose 189 H Calcium 9.9 Phosphorus Magnesium Albumin 08/20/22 08/20/22 08/21/22 16:55 20:44 05:29 WBC RBC Hgb POC Hgb Hct POC Hct MCV MCH MCHC RDW Std Deviation RDW Coeff of [place] Plt Count MPV PT 15.5 H INR 1.4 H Sample Site POC pH POC pCO2 POC pO2 POC HCO3 POC Total CO2 POC Base Excess ABG pH ABG pH (Temp Correct) ABG pCO2 ABG pCO2 (Temp Corrct ABG pO2 POC ABG pO2 at Pt Temp ABG HCO3 POC ABG O2 Sat ABG O2 Saturation ABG Base Excess Shawn Test Oxygen Given O2 Delivery Device POC O2 Rate POC FiO2 IPAP POC Sodium Sodium POC Potassium Potassium Chloride Carbon Dioxide Anion Gap BUN Creatinine Est Cr Clr Drug Dosing Est GFR ( Amer) Est GFR (Non-Af Amer) BUN/Creatinine Ratio Glucose POC Glucose 163 H 149 H Calcium Phosphorus Magnesium Albumin 08/21/22 08/21/22 08/21/22 05:29 05:29 08:05 WBC 15.53 H RBC 3.79 L Hgb 10.6 L POC Hgb Hct 33.6 L POC Hct MCV 88.7 MCH 28.0 MCHC 31.5 L RDW Std Deviation 49.2 H RDW Coeff of [place] 15.4 H Plt Count 250 MPV 10.4 PT INR Sample Site POC pH POC pCO2 POC pO2 POC HCO3 POC Total CO2 POC Base Excess ABG pH 7.35 ABG pH (Temp Correct) ABG pCO2 60 H ABG pCO2 (Temp Corrct ABG pO2 90 POC ABG pO2 at Pt Temp ABG HCO3 33 H POC ABG O2 Sat ABG O2 Saturation 98.1 H ABG Base Excess 5.6 H Shawn Test Pos Oxygen Given O2 Delivery Device POC O2 Rate POC FiO2 IPAP POC Sodium Sodium 144 POC Potassium Potassium 3.7 Chloride 103 Carbon Dioxide 32 Anion Gap 9 BUN 56 H Creatinine 1.55 H Est Cr Clr Drug Dosing 40.7 Est GFR ( Amer) 37.6 Est GFR (Non-Af Amer) 32.4 BUN/Creatinine Ratio 36.1 H Glucose 128 H POC Glucose Calcium 9.4 Phosphorus 4.4 Magnesium 2.2 Albumin 3.7 08/21/22 08:11 WBC RBC Hgb POC Hgb Hct POC Hct MCV MCH MCHC RDW Std Deviation RDW Coeff of [place] Plt Count MPV PT INR Sample Site POC pH POC pCO2 POC pO2 POC HCO3 POC Total CO2 POC Base Excess ABG pH ABG pH (Temp Correct) ABG pCO2 ABG pCO2 (Temp Corrct ABG pO2 POC ABG pO2 at Pt Temp ABG HCO3 POC ABG O2 Sat ABG O2 Saturation ABG Base Excess Shawn Test Oxygen Given O2 Delivery Device POC O2 Rate POC FiO2 IPAP POC Sodium Sodium POC Potassium Potassium Chloride Carbon Dioxide Anion Gap BUN Creatinine Est Cr Clr Drug Dosing Est GFR ( Amer) Est GFR (Non-Af Amer) BUN/Creatinine Ratio Glucose POC Glucose 147 H Calcium Phosphorus Magnesium Albumin Diagnostic Findings Telemetry personally reviewed: Atrial fibrillation with heart rate mostly 80- 100. Nephrology note reviewed. Labs reviewed and notable for stable renal function and normal potassium. WBC is increasing over the past 2 days. Medications Administered Current Inpatient Medications Acetaminophen (Acetaminophen 325 Mg Tab) 650 mg PO Q4H PRN PRN Reason: Pain or Fever Stop: 09/18/22 01:59 Last Admin: 08/21/22 10:52 Dose: 650 mg Albuterol (Albut/Ipratrop 3mg/0.5mg Neb 3 Ml Vial) 3 ml NEB Q4R PRN; Protocol PRN Reason: Wheezing Stop: 08/25/22 16:00 Last Admin: 08/21/22 07:55 Dose: 3 ml Allopurinol (Allopurinol 100 Mg Tab) 100 mg PO DAILY CHETNA Stop: 09/18/22 08:59 Last Admin: 08/21/22 08:48 Dose: 100 mg Aspirin (Aspirin 81 Mg Ectab) 81 mg PO QPM CHETNA Stop: 09/18/22 20:59 Last Admin: 08/20/22 21:18 Dose: 81 mg Azelastine HCl (Azelastine Hcl 0.1% Nasal 200 Sprays/27,400 Mcg Btl) 1 sprays NA DAILY PRN PRN Reason: ALLERGIES Stop: 09/18/22 02:13 Cetirizine HCl (Cetirizine Hcl 10 Mg Tablet) 10 mg PO QAM PRN PRN Reason: Allergy Symptoms Stop: 09/18/22 01:59 Last Admin: 08/21/22 08:48 Dose: 10 mg Dextrose (Dextrose 50% 50 Ml Syringe) 25 - 50 ml IV UD PRN; Protocol PRN Reason: Hypoglycemia Protocol Stop: 09/18/22 01:59 Diltiazem HCl (Diltiazem Hcl 60 Mg Tab) 60 mg PO HS CHETNA Stop: 09/18/22 20:59 Last Admin: 08/20/22 21:19 Dose: 60 mg Diltiazem HCl (Diltiazem Hcl 240 Mg Capcr) 240 mg PO QAM CHETNA Stop: 09/18/22 08:59 Last Admin: 08/21/22 08:48 Dose: 240 mg Ergocalciferol (Ergocalciferol 50,000 Units 1250 Mcg Cap) 50,000 units PO Q30D CHETNA Stop: 09/29/22 08:59 Glucagon (Glucagon For Inj 1 Mg Vial) 1 mg SQ UD PRN; Protocol PRN Reason: Hypoglycemia Protocol Stop: 09/18/22 01:59 Glucose (Glucose 10 Tab/Tube) 4 - 8 tab PO UD PRN; Protocol PRN Reason: Hypoglycemia Treatment Stop: 09/18/22 01:59 Glucose (Glucose 40% Gel 15 Gm Tube) 15 - 30 gm PO UD PRN; Protocol PRN Reason: Hypoglycemia Protocol Stop: 09/18/22 01:59 Guaifenesin (Guaifenesin 600 Mg Tabcr) 600 mg PO Q12 CHETNA Stop: 08/22/22 08:59 Last Admin: 08/21/22 08:48 Dose: 600 mg Guaifenesin/Dextromethorphan (Guaifenesin/Dextrom Syrup 100mg/10mg 5ml Udc) 5 ml PO Q6H PRN PRN Reason: Cough Stop: 09/18/22 02:49 Last Admin: 08/19/22 03:21 Dose: 5 ml Bumetanide 10 mg/ Dextrose 50 mls @ 2.5 mls/hr IV .Q20H [facility] Stop: 09/18/22 17:29 Last Admin: 08/21/22 02:07 Dose: 0.5 mg/hr, 2.5 mls/hr Insulin Aspart (Insulin Aspart Per Unit Charge) 0 units SC ACHS [facility] Stop: 09/18/22 02:29 Last Admin: 08/21/22 08:46 Dose: 1 units Insulin Glargine (Lantus Per Unit Charge) 20 units SC BID CHETNA Stop: 09/18/22 20:59 Last Admin: 08/21/22 08:47 Dose: 20 units Levothyroxine Sodium (Levothyroxine Sodium 150 Mcg Tablet) 150 mcg PO DAILYBB CHETNA Stop: 09/18/22 06:29 Last Admin: 08/21/22 05:58 Dose: 150 mcg Metoprolol Succinate (Metoprolol Succ 25mg Ext Rel Tab) 25 mg PO HS [facility] Stop: 09/18/22 20:59 Last Admin: 08/20/22 21:20 Dose: 25 mg Miscellaneous (Carbohydrates For Hypoglycemia ) 15 - 30 gm PO UD PRN PRN Reason: Hypoglycemia Protocol Stop: 09/18/22 01:59 Miscellaneous Information (Pharmacy Glycemic Mgmt Consult) 1 each N/A UD PRN PRN Reason: Consult Stop: 09/18/22 01:59 Nitroglycerin (Nitroglycerin 2% Ointment 30gm Tube) 0.5 inch EXT Q6H [facility] Stop: 09/18/22 15:59 Last Admin: 08/21/22 09:40 Dose: 0.5 inch Ondansetron HCl (Ondansetron Inj 2 Mg/Ml 2 Ml Vial) 4 mg IV Q4H PRN PRN Reason: Nausea Stop: 09/18/22 09:30 Potassium Citrate (Potassium Citrate 10 Meq Tab) 10 meq PO BID [facility] Stop: 09/18/22 08:59 Last Admin: 08/21/22 08:48 Dose: 10 meq Pravastatin Sodium (Pravastatin Sod 40 Mg Tab) 80 mg PO HS [facility] Stop: 09/18/22 20:59 Last Admin: 08/20/22 21:19 Dose: 80 mg Warfarin Sodium (Warfarin Sod 1 Mg Tab) 1 mg PO [id number] [facility] Stop: 09/21/22 15:59 Warfarin Sodium (Warfarin Sod 2 Mg Tab) 2 mg PO [id number] [facility] Stop: 09/20/22 15:59 PG Care Time/CCT Total # of Minutes Spent Total Time Spent with Patient: Total time spent is greater than 50% in coordination of care (as documented) at patient's floor/unit and/or counseling patient: Coding Level of Care Code 36379 SUB INP/OBS CARE 3/50MIN Diagnoses Acute on chronic heart failure with preserved ejection fraction (HFpEF) I50.33 Acute respiratory failure with hypoxia J96.01 S/P aortic valve replacement with bioprosthetic valve Z95.3 Mitral regurgitation I34.0 Cardiac valve disease etiology: etiology unspecified CAD in [place] artery I25.10 Atrial flutter I48.92 A-fib I48.2 Atrial fibrillation type: permanent Hypertension I10 S/P CABG (coronary artery bypass graft) Z95.1 (4) Mitral regurgitation Cardiac valve disease etiology: etiology unspecified Qualified Code(s): I34.0 - Nonrheumatic mitral (valve) insufficiency (7) A-fib Atrial fibrillation type: permanent Qualified Code(s): I48.2 - Chronic atrial fibrillation
--- NOTE | 2022-08-21 11:27 | XRay Report ---
XR chest 1V portable HISTORY: 77 years-old Female sob, elevated wbc acute shortness of breath. COMPARISON: 08/18/2022 TECHNIQUE: AP view of the chest FINDINGS: Cardiac silhouette is enlarged. Prior median sternotomy with aortic valvular prosthesis and left atri al exclusion device. Pulmonary vascular congestion with interstitial coarsening. No pneumothorax. Lef t greater right pleural effusions with bibasilar opacities are again noted. There is mildly improved aeration of the right lung base. Bones appear grossly intact. IMPRESSION: 1. Cardiomegaly with mild pulmonary edema. 2. Left greater than right pleural effusions with bibasilar consolidation again noted. ACT 112: Negative or not required by law. The above report was generated using voice recognition software. It may contain grammatical, syntax o r spelling errors. Electronically signed by: Tony Bradford M.D. 08/21/2022 11:26 AM
[2022-08-21] MEDS ORDERED: Heparin IV Adult Wt-Based Standard *NO* Bolus Protocol IV STA (11:42)
[2022-08-21] MEDS: HEPARIN SODIUM/DEXTROSE 25,000 UNITS/500 ML BAG IV SCH (12:36)
--- NOTE | 2022-08-21 16:31 | Hospitalist Progress Note ---
Date of Service August 21, 2022 Assessment & Plan (1) Acute on chronic heart failure with preserved ejection fraction (HFpEF): Plan: Patient presented with clear signs of acute CHF exacerbation Chest x-ray congested BNP elevated at 318 Patient with increased weight and leg swelling She was initially given several doses of Lasix followed by Bumex with not much diuretic response Cardiology and nephrology were consulted The patient was started on a Bumex drip The patient was started on BiPAP after she initially refused it and later on agreed. She is diuresing in response to the Bumex drip Today she appears much improved from a respiratory standpoint TTE did not show any depressed EF Most likely diastolic CHF Plan to continue Bumex drip until nephrology recommends to switch over to IV push Monitor strict I's and O's, daily weights Cardiology recommends continuing beta-wing and statin. Ischemic etiology will be reassessed when volume status improves (2) Acute respiratory failure with hypoxia: Plan: Improved today clinically Taken off of BiPAP today Continue CHF treatment with Bumex drip for now (3) Uncontrolled type 2 diabetes mellitus with neurologic complication, with lo ng-term current use of insulin: Plan: Continue sliding scale insulin (4) S/P aortic valve replacement with bioprosthetic valve: Plan: Appropriately functioning bioprosthetic aortic valve (5) A-fib: Plan: Continue beta-wing and diltiazem INR came down to subtherapeutic range Restarted on Coumadin Started her on heparin drip while waiting for Coumadin to be therapeutic Monitor INR closely Plan Continue Bumex drip Admission and Anticipated Discharge Date Admission Date: August 19, 2022 Subjective Patient diuresed well overnight. She kept the BiPAP on as well. She was taken off of the BiPAP this morning. Review of Systems Review of Systems: All systems reviewed & are unremarkable except as noted in Subjective Physical Exam Physical Exam: General: Drowsy, arousable. Had BiPAP on. Does not appear to be in severe respiratory distress. Heart: S1, S2/regular rate and rhythm, no murmur rubs or gallops Lungs: Bilateral wheezing and bibasilar crackles. Normal effort Abdomen: Soft/nontender/nondistended. No hepatosplenomegaly Extremities: No clubbing/cyanosis. Less edema today. 1+ bilateral pitting edema Behavior: Appropriate, cooperative Results & Data Results & Data Vital Signs (Past 12 Hours) Vital Signs Temp Pulse Pulse Resp BP Pulse Ox O2 Del Method 08/21/22 16:09 36.8 C 85 22 127/69 97 Oxymask 08/21/22 08:00 BiPAP 08/21/22 12:17 36.7 C 100 H 24 127/65 88 L Oxymask 08/21/22 07:50 89 26 H 97 08/21/22 07:11 36.6 C 98 H 22 108/66 95 CPAP O2 Flow Rate FiO2 08/21/22 16:09 14 08/21/22 08:00 08/21/22 12:17 14 08/21/22 07:50 60 08/21/22 07:11 60 Laboratory Results Abnormal lab results 08/20/22 08/20/22 08/20/22 Range/Units 16:26 16:55 20:44 WBC (4.8-10.8) K/ul RBC (4.20-5.40) M/uL Hgb (12.0-16.0) g/dl Hct (37.0-47.0) % MCHC (32.0-36.0) g/dL RDW Std Deviation (36.4-46.3) fL RDW Coeff of Salvador (11.5-14.5) % PT (9.0-12.0) Seconds INR (0.9-1.1) ABG pCO2 (35-46) mmHg ABG HCO3 (19-24) mmol/L ABG O2 Saturation (90-95) % ABG Base Excess (-9-1.8) mEq/L BUN 48 H (6-23) mg/dl Creatinine 1.55 H (0.6-1.2) mg/dl BUN/Creatinine Ratio 31.0 H (10-20) Glucose 170 H (70-99(Fasting)) mg/dl POC Glucose 163 H 149 H (70-99) mg/dl 08/21/22 08/21/22 08/21/22 Range/Units 05:29 05:29 05:29 WBC 15.53 H (4.8-10.8) K/ul RBC 3.79 L (4.20-5.40) M/uL Hgb 10.6 L (12.0-16.0) g/dl Hct 33.6 L (37.0-47.0) % MCHC 31.5 L (32.0-36.0) g/dL RDW Std Deviation 49.2 H (36.4-46.3) fL RDW Coeff of Salvador 15.4 H (11.5-14.5) % PT 15.5 H (9.0-12.0) Seconds INR 1.4 H (0.9-1.1) ABG pCO2 (35-46) mmHg ABG HCO3 (19-24) mmol/L ABG O2 Saturation (90-95) % ABG Base Excess (-9-1.8) mEq/L BUN 56 H (6-23) mg/dl Creatinine 1.55 H (0.6-1.2) mg/dl BUN/Creatinine Ratio 36.1 H (10-20) Glucose 128 H (70-99(Fasting)) mg/dl POC Glucose (70-99) mg/dl 08/21/22 08/21/22 08/21/22 Range/Units 08:05 08:11 11:51 WBC (4.8-10.8) K/ul RBC (4.20-5.40) M/uL Hgb (12.0-16.0) g/dl Hct (37.0-47.0) % MCHC (32.0-36.0) g/dL RDW Std Deviation (36.4-46.3) fL RDW Coeff of Salvador (11.5-14.5) % PT (9.0-12.0) Seconds INR (0.9-1.1) ABG pCO2 60 H (35-46) mmHg ABG HCO3 33 H (19-24) mmol/L ABG O2 Saturation 98.1 H (90-95) % ABG Base Excess 5.6 H (-9-1.8) mEq/L BUN (6-23) mg/dl Creatinine (0.6-1.2) mg/dl BUN/Creatinine Ratio (10-20) Glucose (70-99(Fasting)) mg/dl POC Glucose 147 H 145 H (70-99) mg/dl Diagnostic Findings Chest X-Ray 08/21/22 10:44 XR chest 1V portable HISTORY: 77 years-old Female sob, elevated wbc acute shortness of breath. COMPARISON: 08/18/2022 TECHNIQUE: AP view of the chest FINDINGS: Cardiac silhouette is enlarged. Prior median sternotomy with aortic valvular prosthesis and left atrial exclusion device. Pulmonary vascular congestion with interstitial coarsening. No pneumothorax. Left greater right pleural effusions with bibasilar opacities are again noted. There is mildly improved aeration of the right lung base. Bones appear grossly intact. IMPRESSION: 1. Cardiomegaly with mild pulmonary edema. 2. Left greater than right pleural effusions with bibasilar consolidation again noted. ACT 112: Negative or not required by law. The above report was generated using voice recognition software. It may contain grammatical, syntax or spelling errors. Electronically signed by: Tony Bradford M.D. 08/21/2022 11:26 AM PG Care Time/CCT Total # of Minutes Spent Total Time Spent with Patient: Total time spent is greater than 50% in coordination of care (as documented) at patient's floor/unit and/or counseling patient: Coding Level of Care Code 71687 SUB INP/OBS CARE 2/35MIN Diagnoses Acute on chronic heart failure with preserved ejection fraction (HFpEF) I50.33 Acute respiratory failure with hypoxia J96.01 Uncontrolled type 2 diabetes mellitus with neurologic complication, with long- term current use of insulin E11.49; E11.65; Z79.4 S/P aortic valve replacement with bioprosthetic valve Z95.3 A-fib I48.2 Atrial fibrillation type: permanent (5) A-fib Atrial fibrillation type: permanent Qualified Code(s): I48.2 - Chronic atrial fibrillation
[2022-08-21] MEDS: WARFARIN SOD 2 MG TAB PO SCH (17:12)
[2022-08-21 18:56] LABS: BUN Creatinine Ratio 40.4 (10-20); Calcium 9.6 mg/dl (8.6-10.3); Creatinine Clr Calc Pharmacy 43.2 ml/min; Est GFR (African American) 40.4 ml/min; Est GFR (Non-African American) 34.8 ml/min; Potassium 3.9 mmol/L (3.5-5.1)
[2022-08-21 19:07] LABS: Partial Thromboplastin Ratio 1.2; Partial Thromboplastin Time 35.1 Seconds (21.0-31.0)
[2022-08-21] MEDS ORDERED: HEPARIN SOD (PORCINE) 1000 UNIT/ML IV ONE (19:10)
[2022-08-21] MEDS: ASPIRIN 81 MG ECTAB PO SCH (20:34)
[2022-08-21] MEDS: dilTIAZem HCl 60 MG TAB PO SCH (20:34)
[2022-08-21] MEDS: METOPROLOL SUCC 25MG EXT REL TAB PO SCH (20:35)
[2022-08-21] MEDS: PRAVASTATIN SOD 40 MG TAB PO SCH (20:37)
[2022-08-22] MEDS ORDERED: MELATONIN 3 MG TAB PO STA (01:09)
[2022-08-22 02:28] LABS: Hematocrit (blood only) 32.6 % (37.0-47.0); Hemoglobin 10.3 g/dl (12.0-16.0); Mean Corpuscular Hgb Conc 31.6 g/dL (32.0-36.0); Mean Corpuscular Volume 88.6 fL (80.0-100.0); Platelet Count 254 K/uL (130-400); RDW Coefficient of Variation 15.5 % (11.5-14.5); RDW Standard Deviation 49.6 fL (36.4-46.3); Red Blood Count 3.68 M/uL (4.20-5.40); White Blood Count 15.27 K/ul (4.8-10.8)
[2022-08-22 02:49] LABS: Albumin Level 3.7 gm/dl (3.4-5.0); BUN Creatinine Ratio 39.5 (10-20); Calcium 9.5 mg/dl (8.6-10.3); Creatinine Clr Calc Pharmacy 42.9 ml/min; Est GFR (African American) 40.1 ml/min; Est GFR (Non-African American) 34.6 ml/min; Phosphorus 3.4 mg/dl (2.5-4.9); Potassium 3.5 mmol/L (3.5-5.1)
[2022-08-22 02:56] LABS: INR 1.6 (0.9-1.1); Partial Thromboplastin Ratio 1.2; Partial Thromboplastin Time 33.8 Seconds (21.0-31.0); Prothrombin Time 17.2 Seconds (9.0-12.0)
[2022-08-22] MEDS ORDERED: HEPARIN SOD (PORCINE) 1000 UNIT/ML IV ONE (04:00)
[2022-08-22] MEDS: HEPARIN SODIUM/DEXTROSE 25,000 UNITS/500 ML BAG IV SCH ×2 (04:35→20:47)
[2022-08-22] MEDS: NITROGLYCERIN 2% OINTMENT 30GM TUBE EXT SCH ×4 (04:36→20:53)
[2022-08-22] MEDS: ACETAMINOPHEN 325 MG TAB PO PRN (04:59)
--- NOTE | 2022-08-22 05:15 | Electrocardiogram Report ---
Test Reason : Blood Pressure : / mmHG Vent. Rate : 095 BPM Atrial Rate : 098 BPM P-R Int : 000 ms QRS Dur : 148 ms QT Int : 422 ms P-R-T Axes : 000 -66 141 degrees QTc Int : 530 ms Poor data quality, interpretation may be adversely affected Atrial fibrillation Left axis deviation Left bundle branch block Abnormal ECG When compared with ECG of 18-AUG-2022 23:09, No significant change Confirmed by Joel Miller ([id number]) on 08/22/2022 5:15:20 AM Referred By: REFERRED SELF Confirmed By:Joel Miller
[2022-08-22] MEDS: LEVOTHYROXINE SODIUM 150 MCG TABLET PO SCH (06:32)
--- NOTE | 2022-08-22 07:08 | Hospitalist Progress Note ---
Date of Service August 22, 2022 Assessment & Plan (1) Acute on chronic heart failure with preserved ejection fraction (HFpEF): Plan: Patient presented with SOB and AHRF requiring BIPAP, with evidence of pulmonary edema and bibasilar consolidations on CXR BNP elevated at 318, and patient with increased weight and leg swelling She was initially given several doses of Lasix followed by Bumex with not much diuretic response, transitioned to Bumex gtt with good response, now on Bumex 4mg IV BID Net negative 2300mL today, weight 121.8 -> 115.4 this admission; continue to monitor I/O and daily weights TTE did not show any depressed EF, suspect HFpEF Cardiology and Nephrology consulted and appreciate recommendations Cardiology recommends continuing beta-wing and statin. Ischemic etiology will be reassessed when volume status improves Pulmonology also consulted this admission and recommended BIPAP nightly (/ @ 60% with a backup rate of 18), will encourage this (2) Acute respiratory failure with hypoxia: Plan: 2/2 HFpEF exacerbation, also suspect some element of OHS Taken off of BIPAP continuous on 08/21 due to clinical improvement Continue CHF treatment with Bumex as above BIPAP nightly, importance stressed (3) Acute metabolic encephalopathy: Plan: In the setting of hypoxic hypercapnic respiratory failure, improving Element of delirium in the acutely ill patient also suspected, delirium precautions Can consider medication such as Haldol if needed for agitation overnight (4) A-fib: Plan: Continue beta-wing and diltiazem INR was initially supratherapeutic >9.5 and reversed with vitamin K INR subtherapeutic at 1.6 today (increased from yesterday), continue warfarin dosing with heparin gtt until therapeutic INR (5) Uncontrolled type 2 diabetes mellitus with neurologic complication, with long-term current use of insulin: Plan: Continue basal/bolus insulin (6) S/P aortic valve replacement with bioprosthetic valve: Plan: Appropriately functioning bioprosthetic aortic valve Plan Patient is still severely ill and requiring increased oxygen from no baseline needs, ultimately plan for continued treatment of CHF exacerbation, followed by PT and OT evaluation for dispo planning Admission and Anticipated Discharge Date Admission Date: August 19, 2022 Subjective Overnight with some agitation and confusion, trying to pull of IVs and nasal cannula. This afternoon a bit more awake, still a bit confused, less agitated. Denies pain, reports her breathing is a bit labored if she breathes through her mouth. Review of Systems Review of Systems: All systems reviewed & are unremarkable except as noted in Subjective Physical Exam Constitutional: WD/WN, vitals as above Respiratory: normal respiratory effort, saturating well on 6LNC, bilateral crackles noted Cardiovascular: HR irregularly irregular, no murmurs, JVD and peripheral edema noted Gastrointestinal (Abdomen): normal bowel sounds, soft, nontender, no hepatosplenomegaly Skin: no rashes, warm and dry Psychiatric: A+Ox3, euthymic affect Results & Data Results & Data Vital Signs (Past 12 Hours) Vital Signs Temp Pulse Pulse Pulse Resp BP Pulse Ox 08/21/22 23:00 92 H 08/22/22 03:22 36.7 C 69 69 18 128/62 94 08/21/22 19:00 08/21/22 23:07 36.7 C 93 H 123/88 92 08/21/22 20:04 36.7 C 101 H 18 131/62 95 O2 Del Method O2 Flow Rate 08/21/22 23:00 08/22/22 03:22 Nasal Cannula 15 08/21/22 19:00 High Flow Nasal Cannula 12 08/21/22 23:07 Nasal Cannula 15 08/21/22 20:04 Room Air PG Care Time/CCT Total # of Minutes Spent Total Time Spent with Patient: Total time spent is greater than 50% in coordination of care (as documented) at patient's floor/unit and/or counseling patient: Coding Level of Care Code 43697 SUB INP/OBS CARE 3/50MIN Diagnoses Acute on chronic heart failure with preserved ejection fraction (HFpEF) I50.33 Acute respiratory failure with hypoxia J96.01 Acute metabolic encephalopathy G93.41 A-fib I48.2 Atrial fibrillation type: permanent Uncontrolled type 2 diabetes mellitus with neurologic complication, with long- term current use of insulin E11.49; E11.65; Z79.4 S/P aortic valve replacement with bioprosthetic valve Z95.3 (4) A-fib Atrial fibrillation type: permanent Qualified Code(s): I48.2 - Chronic atrial fibrillation
[2022-08-22] MEDS: BUMETANIDE 4 MG in SYRINGE 0 ML IV SCH ×2 (08:29→16:55)
[2022-08-22] MEDS: LANTUS PER UNIT CHARGE SC SCH ×2 (08:34→20:53)
[2022-08-22] MEDS: INSULIN ASPART PER UNIT CHARGE SC SCH ×4 (08:34→20:46)
[2022-08-22 10:54] LABS: Partial Thromboplastin Ratio 1.7
[2022-08-22 11:01] LABS: Partial Thromboplastin Time 48.5 Seconds (21.0-31.0)
[2022-08-22] MEDS: dilTIAZem HCL 240 MG CAPCR PO SCH (11:03)
[2022-08-22] MEDS: allopurinoL 100 MG TAB PO SCH (11:03)
[2022-08-22] MEDS: POTASSIUM CITRATE 10 MEQ TAB PO SCH ×2 (11:05→20:44)
--- NOTE | 2022-08-22 11:44 | Nephrology Progress Note ---
Date of Service August 22, 2022 Assessment & Plan (1) Acute kidney injury superimposed on CKD: Plan: Non-oliguric. Electrolytes acceptable. Volume status improving. Baseline creatinine 1.3 mg/dL. Followed by Dr. Alicea. Proteinuria low grade. Urine microscopy acellular. Renal US without obstruction. Medications appropriately dosed for kidney function. Remains on K citrate for history of stones and diuretic use. Document I/O's. Monitor metabolic profile twice daily while on Bumex gtt. (2) Acute on chronic heart failure with preserved ejection fraction (HFpEF): Plan: Clinically improving. Bumex gtt stopped yesterday evening. Transitioned to Bumex 4 mg IV BID. Plan of care reviewed with Dr. Miller and Dr. Maya this AM. Low sodium diet and daily fluid restriction. Document strict I/O's. Repeat metabolic profile tomorrow AM. Not maintained on JHON/ARB due to history of ERIN. Consider revisiting in the future. Defer RAAS blockade and SGLT2i option for now in the acute setting. (3) Pulmonary hypertension: Plan: Clinically improving with diuresis. BIPAP weaned off. (4) Hypertension: Plan: BP acceptable. Remains rate controlled Afib with metoprolol and diltiazem. Admission and Anticipated Discharge Date Admission Date: August 19, 2022 Subjective No acute events overnight. Maria A was seen and evaluated with her at the bedside this AM. She is breathing comfortably on 12 L/min NC. Denies chest pain or palpitations. No complaints this morning. Review of Systems Review of Systems: All systems reviewed & are unremarkable except as noted in HPI & below Physical Exam Constitutional: well developed, + obese and + frail appearing; no acute distress Eyes: + anicteric sclerae; no corneal abnormality Neck: normal visual inspection, trachea midline and + thick neck Respiratory: + tachypneic Auscultation: + rhonchi Cardiovascular: Rate/Rhythm: + irregularly irregular Heart Sounds: normal S1, normal S2 and + murmur Vessels: + JVD Extremities: + edema (improving) Musculoskeletal: Extremities: no cyanosis and no clubbing Skin: + turgor decreased; no jaundice Neurologic: Motor/Sensory: no tremor and no asterixis Psychiatric: Orientation: alert, oriented x 3 and cooperative Results & Data Vital Signs (Past 12 Hours) Vital Signs Temp Pulse Pulse Resp BP BP Pulse Ox 08/22/22 07:48 36.4 C L 80 19 136/69 94 08/22/22 03:22 36.7 C 69 69 18 128/62 94 O2 Del Method O2 Flow Rate 08/22/22 07:48 Nasal Cannula 12 08/22/22 03:22 Nasal Cannula 15 Laboratory Results Laboratory Results - last 24 hr 08/21/22 08/21/22 08/21/22 11:51 16:52 18:21 WBC RBC Hgb Hct MCV MCH MCHC RDW Std Deviation RDW Coeff of Salvador Plt Count MPV PT INR APTT PTT Ratio Sodium 143 Potassium 3.9 Chloride 102 Carbon Dioxide 31 Anion Gap 10 BUN 59 H Creatinine 1.46 H Est Cr Clr Drug Dosing 43.2 Est GFR ( Amer) 40.4 Est GFR (Non-Af Amer) 34.8 BUN/Creatinine Ratio 40.4 H Glucose 159 H POC Glucose 145 H 126 H Calcium 9.6 Phosphorus Magnesium Albumin 08/21/22 08/21/22 08/22/22 18:21 20:41 00:29 WBC RBC Hgb Hct MCV MCH MCHC RDW Std Deviation RDW Coeff of Salvador Plt Count MPV PT INR APTT 35.1 H PTT Ratio 1.2 Sodium Potassium Chloride Carbon Dioxide Anion Gap BUN Creatinine Est Cr Clr Drug Dosing Est GFR ( Amer) Est GFR (Non-Af Amer) BUN/Creatinine Ratio Glucose POC Glucose 158 H 174 H Calcium Phosphorus Magnesium Albumin 08/22/22 08/22/22 08/22/22 02:09 02:09 02:09 WBC 15.27 H RBC 3.68 L Hgb 10.3 L Hct 32.6 L MCV 88.6 MCH 28.0 MCHC 31.6 L RDW Std Deviation 49.6 H RDW Coeff of [place] 15.5 H Plt Count 254 MPV 10.0 PT 17.2 H INR 1.6 H APTT 33.8 H PTT Ratio 1.2 Sodium 144 Potassium 3.5 Chloride 101 Carbon Dioxide 33 H Anion Gap 10 BUN 58 H Creatinine 1.47 H Est Cr Clr Drug Dosing 42.9 Est GFR ( Amer) 40.1 Est GFR (Non-Af Amer) 34.6 BUN/Creatinine Ratio 39.5 H Glucose 166 H POC Glucose Calcium 9.5 Phosphorus 3.4 D Magnesium 2.0 Albumin 3.7 08/22/22 08/22/22 07:50 09:39 WBC RBC Hgb Hct MCV MCH MCHC RDW Std Deviation RDW Coeff of Salvador Plt Count MPV PT INR APTT 48.5 H* PTT Ratio 1.7 Sodium Potassium Chloride Carbon Dioxide Anion Gap BUN Creatinine Est Cr Clr Drug Dosing Est GFR ( Amer) Est GFR (Non-Af Amer) BUN/Creatinine Ratio Glucose POC Glucose 175 H Calcium Phosphorus Magnesium Albumin PG Care Time/CCT Total # of Minutes Spent Total Time Spent with Patient: Total time spent is greater than 50% in coordination of care (as documented) at patient's floor/unit and/or counseling patient: Coding Level of Care Code 49659 SUB INP/OBS CARE 3/50MIN Diagnoses Acute kidney injury superimposed on CKD N17.9; N18.9 Acute on chronic heart failure with preserved ejection fraction (HFpEF) I50.33 Pulmonary hypertension I27.20 Hypertension I10
--- NOTE | 2022-08-22 14:25 | Pharmacy Report ---
Pharmacy Glycemic Short Note 2 - Date of Service August 22, 2022 - Glycemic Short BSG Results (Last 24 hours): 08/21/22 08/21/22 08/21/22 16:52 18:21 20:41 Glucose 159 H POC Glucose 126 H 158 H 08/22/22 08/22/22 08/22/22 00:29 02:09 07:50 Glucose 166 H POC Glucose 174 H 175 H 08/22/22 11:52 Glucose POC Glucose 162 H OUTPATIENT ANTIDIABETIC REGIMEN: * NPH Insulin 12-16 units QPM * Regular Insulin 6-8 units TIDM * Metformin ER 1000 mg PO BID * HbA1c = 7.1% on 08/18/22 ASSESSMENT: 08/22/22 * BSGs have been stable on current regimen. * Novolog parameters were loosened slightly yesterday d/t downward trend of BSGs throughout the day. * No further changes are indicated at this time. 08/19 * 77 y/o F admitted for CHF exacerbation last night. She has history of Type 2 diabetes managed on basal and bolus insulins and oral Metformin at home. * BSGs have been above 200 mg/dl consistently since last night despite patient receiving basal 15 units at HS yesterday. * Novolog was ordered based on stress of 2 last night. * Fasting BSG = 244 mg/dl today. Added 15 units of basal insulin again this AM but pre-lunch BSG still at 241 mg/dl. * Novolog parameters tightened with lunch and increased basal insulin BID starting at HS today. PLAN FOR INPATIENT GLYCEMIC CONTROL: * Hold outpatient oral diabetes medications * Basal insulin * Lantus 20 units SQ BID * Bolus insulin * NovoLog per scale ACHS or Q6hrs while NPO * Goal Range: Low 110 mg/dL - High 140 mg/dL * Correction Factor: 20 mg/dL/unit * Nutritional / Prandial insulin per carb ratio of 1 unit per 6 grams CHO consumed
[2022-08-22] MEDS ORDERED: Nursing to Pharmacy Communication SCH (15:45)
[2022-08-22] MEDS ORDERED: WARFARIN SOD 1 MG TAB PO SCH (16:00)
[2022-08-22] MEDS: prednisoLONE acetate 1% OP SUSP 5 ML BTL OPR SCH ×2 (16:54→20:44)
[2022-08-22 17:56] LABS: Base Excess VBG 9.1 mEq/L; HCO3 VBG 35 mmol/L; Oxygen Saturation VBG 68.9 %; PCO2 VBG 53 mmHg (38-50); PO2 VBG 41 mmHg; pH VBG 7.43 (7.36-7.41)
--- NOTE | 2022-08-22 18:13 | Cardiology Progress Note ---
Date of Service August 22, 2022 Assessment & Plan (1) Acute on chronic heart failure with preserved ejection fraction (HFpEF): (2) Acute respiratory failure with hypoxia: (3) S/P aortic valve replacement with bioprosthetic valve: (4) Mitral regurgitation: (5) CAD in [place] artery: (6) Atrial flutter: (7) A-fib: (8) Hypertension: (9) S/P CABG (coronary artery bypass graft): Plan ASSESSMENT/PLAN: 1. Acute on chronic heart failure with preserved EF: Volume status improving. Edema much improved. Continue Bumex 4 mg IV twice daily. Has received intermittent Diuril as needed. Nitro paste ordered for preload reduction and hypertension (08/19/22). Has tolerated BiPAP. Oxygenation improved. Strict I's and O's. Daily weights. Goal net negative I's and O's today 1 to 2 L negative. Can consider SGLT2 inhibitor in the future. 2. Acute respiratory failure with hypoxia: Oxygen supplementation requirement has declined. Has used BiPAP. Pleural effusions on chest x-rays. 3. CAD s/p CABG (ANDRADE to LAD): Intermittent chest discomfort in the setting of CHF exacerbation several days ago but none recently. High-sensitivity troponin on slightly elevated on presentation, despite prolonged chest pain episodes, does not suggest acute coronary syndrome. Has not reported any further chest discomfort. Continue beta-wing and statin therapy. LBBB on initial ECG but bundle branch block also noted on outpatient echo in June. 4. Aortic valve replacement: Recent echo demonstrated appropriately functioning bioprosthetic aortic valve (06/29/2022). SBE prophylaxis for dental procedures. 5. Atrial flutter/fibrillation: Permanent. Continue beta-wing and dilt iazem. Heart rate has improved with improved respiratory status. Continue anticoagulation for stroke risk reduction. INR was initially supratherapeutic, likely related to hepatic congestion. She has received vitamin K by hospitalist. INR now subtherapeutic. Can use heparin gtt until INR therapeutic. She has undergone left atrial appendage ablation with 35mm atrial clip. She has declined NOAC. 6. Hypertension: Blood pressure has improved with diuresis and nitroglycerin application. Normotensive today. 7. Mitral regurgitation: Not fully interrogated on this hospitalized echo due to decompensation. Can be evaluated further when able to tolerate echo in the future. 8. Leukocytosis and confusion: As per primary hospitalist service. Consider infection evaluation. 9. Disposition: Cardiology will continue to follow. Heart failure program referral. Patient care communicated with Dr. Hendrix (hospitalist service). Discussed care with Dr. Clancy of Nephrology. Admission and Anticipated Discharge Date Admission Date: August 19, 2022 Subjective She was seen this afternoon. Her was present at the bedside. She remains confused and did not know her when asked. She admits to shortness of breath. It is difficult to know if there is any improvement from a subjective standpoint as she does not recall any details. She denies pain, such as chest pain. No reported syncope. Supplemental oxygen requirement has been reduced throughout the day. Physical Exam Physical Exam: Gen.: No acute distress. Alert. HEENT: Anicteric sclera. Neck: Mild JVD. Thick neck. Cardiac: No ventricular heave. Irregularly irregular. Normal heart rate. Normal S1-S2. 1/6 early peaking systolic ejection murmur heard best at right upper sternal border. No rubs or gallops. Pulmonary: Decreased breath sounds throughout. Coarse breath sounds bilaterally, but significantly improved. Abdomen: Obese. Soft, nontender, nondistended, with normoactive bowel sounds. No bruits noted. Extremities: 2+ radial pulses bilaterally. 1-2+ bilateral lower extremity edema to the knees (improved). No cyanosis. Results & Data Vital Signs (Past 12 Hours) Vital Signs Temp Pulse Resp BP BP Pulse Ox O2 Del Method 08/22/22 16:03 36.6 C 92 H 21 112/74 97 Nasal Cannula 08/22/22 12:08 36.4 C L 74 22 126/70 94 Nasal Cannula 08/22/22 08:00 Nasal Cannula 08/22/22 07:48 36.4 C L 80 19 136/69 94 Nasal Cannula O2 Flow Rate 08/22/22 16:03 6 08/22/22 12:08 12 08/22/22 08:00 12 08/22/22 07:48 12 Intake & Output 08/20/22 08/21/22 08/22/22 08/23/22 06:59 06:59 06:59 06:59 Intake Total 774 / 774 444.750 / 250.294 8568.334 / 1293.334 383.333 / 383.333 Output Total 1350 / 1350 2400 / 2400 3300 / 3300 850 / 850 Balance -576 / -576 -1955.250 / -1955.250 -2006.666 / -2006.666 -466.667 / - 466.667 Weight 254 lb 6.615 oz Laboratory Results Laboratory Results - last 24 hr 08/21/22 08/21/22 08/21/22 18:21 18:21 20:41 WBC RBC Hgb Hct MCV MCH MCHC RDW Std Deviation RDW Coeff of [place] Plt Count MPV PT INR APTT 35.1 H PTT Ratio 1.2 VBG pH VBG pCO2 VBG pO2 VBG HCO3 VBG O2 Saturation VBG Base Excess Sodium 143 Potassium 3.9 Chloride 102 Carbon Dioxide 31 Anion Gap 10 BUN 59 H Creatinine 1.46 H Est Cr Clr Drug Dosing 43.2 Est GFR ( Amer) 40.4 Est GFR (Non-Af Amer) 34.8 BUN/Creatinine Ratio 40.4 H Glucose 159 H POC Glucose 158 H Calcium 9.6 Phosphorus Magnesium C-Reactive Protein Albumin Procalcitonin 08/22/22 08/22/22 08/22/22 00:29 02:09 02:09 WBC 15.27 H RBC 3.68 L Hgb 10.3 L Hct 32.6 L MCV 88.6 MCH 28.0 MCHC 31.6 L RDW Std Deviation 49.6 H RDW Coeff of [place] 15.5 H Plt Count 254 MPV 10.0 PT INR APTT PTT Ratio VBG pH VBG pCO2 VBG pO2 VBG HCO3 VBG O2 Saturation VBG Base Excess Sodium 144 Potassium 3.5 Chloride 101 Carbon Dioxide 33 H Anion Gap 10 BUN 58 H Creatinine 1.47 H Est Cr Clr Drug Dosing 42.9 Est GFR ( Amer) 40.1 Est GFR (Non-Af Amer) 34.6 BUN/Creatinine Ratio 39.5 H Glucose 166 H POC Glucose 174 H Calcium 9.5 Phosphorus 3.4 D Magnesium 2.0 C-Reactive Protein Albumin 3.7 Procalcitonin 08/22/22 08/22/22 08/22/22 02:09 07:50 09:39 WBC RBC Hgb Hct MCV MCH MCHC RDW Std Deviation RDW Coeff of [place] Plt Count MPV PT 17.2 H INR 1.6 H APTT 33.8 H 48.5 H* PTT Ratio 1.2 1.7 VBG pH VBG pCO2 VBG pO2 VBG HCO3 VBG O2 Saturation VBG Base Excess Sodium Potassium Chloride Carbon Dioxide Anion Gap BUN Creatinine Est Cr Clr Drug Dosing Est GFR ( Amer) Est GFR (Non-Af Amer) BUN/Creatinine Ratio Glucose POC Glucose 175 H Calcium Phosphorus Magnesium C-Reactive Protein Albumin Procalcitonin 08/22/22 08/22/22 08/22/22 11:52 16:44 17:44 WBC RBC Hgb Hct MCV MCH MCHC RDW Std Deviation RDW Coeff of [place] Plt Count MPV PT INR APTT PTT Ratio VBG pH 7.43 H VBG pCO2 53 H VBG pO2 41 VBG HCO3 35 VBG O2 Saturation 68.9 VBG Base Excess 9.1 Sodium Potassium Chloride Carbon Dioxide Anion Gap BUN Creatinine Est Cr Clr Drug Dosing Est GFR ( Amer) Est GFR (Non-Af Amer) BUN/Creatinine Ratio Glucose POC Glucose 162 H 135 H Calcium Phosphorus Magnesium C-Reactive Protein Albumin Procalcitonin 08/22/22 08/22/22 17:44 17:44 WBC RBC Hgb Hct MCV MCH MCHC RDW Std Deviation RDW Coeff of [place] Plt Count MPV PT INR APTT PTT Ratio VBG pH VBG pCO2 VBG pO2 VBG HCO3 VBG O2 Saturation VBG Base Excess Sodium Potassium Chloride Carbon Dioxide Anion Gap BUN Creatinine Est Cr Clr Drug Dosing Est GFR ( Amer) Est GFR (Non-Af Amer) BUN/Creatinine Ratio Glucose POC Glucose Calcium Phosphorus Magnesium C-Reactive Protein Pending Albumin Procalcitonin Pending Diagnostic Findings Telemetry personally reviewed: Atrial fibrillation. Heart rate improved. Labs reviewed and notable for leukocytosis (stable from yesterday), stable hemoglobin, subtherapeutic INR, stable renal function, normal albumin. Nephrology note and hospitalist note reviewed. Medications Administered Current Inpatient Medications Acetaminophen (Acetaminophen 325 Mg Tab) 650 mg PO Q4H PRN PRN Reason: Pain or Fever Stop: 09/18/22 01:59 Last Admin: 08/22/22 04:59 Dose: 650 mg Albuterol (Albut/Ipratrop 3mg/0.5mg Neb 3 Ml Vial) 3 ml NEB Q4R PRN; Protocol PRN Reason: Wheezing Stop: 08/25/22 16:00 Last Admin: 08/21/22 07:55 Dose: 3 ml Allopurinol (Allopurinol 100 Mg Tab) 100 mg PO DAILY CHETNA Stop: 09/18/22 08:59 Last Admin: 08/22/22 11:03 Dose: 100 mg Aspirin (Aspirin 81 Mg Ectab) 81 mg PO QPM CHETNA Stop: 09/18/22 20:59 Last Admin: 08/21/22 20:34 Dose: 81 mg Azelastine HCl (Azelastine Hcl 0.1% Nasal 200 Sprays/27,400 Mcg Btl) 1 sprays NA DAILY PRN PRN Reason: ALLERGIES Stop: 09/18/22 02:13 Cetirizine HCl (Cetirizine Hcl 10 Mg Tablet) 10 mg PO QAM PRN PRN Reason: Allergy Symptoms Stop: 09/18/22 01:59 Last Admin: 08/21/22 08:48 Dose: 10 mg Dextrose (Dextrose 50% 50 Ml Syringe) 25 - 50 ml IV UD PRN; Protocol PRN Reason: Hypoglycemia Protocol Stop: 09/18/22 01:59 Diltiazem HCl (Diltiazem Hcl 60 Mg Tab) 60 mg PO HS [facility] Stop: 09/18/22 20:59 Last Admin: 08/21/22 20:34 Dose: 60 mg Diltiazem HCl (Diltiazem Hcl 240 Mg Capcr) 240 mg PO QAM [facility] Stop: 09/18/22 08:59 Last Admin: 08/22/22 11:03 Dose: 240 mg Ergocalciferol (Ergocalciferol 50,000 Units 1250 Mcg Cap) 50,000 units PO Q30D [facility] Stop: 09/29/22 08:59 Glucagon (Glucagon For Inj 1 Mg Vial) 1 mg SQ UD PRN; Protocol PRN Reason: Hypoglycemia Protocol Stop: 09/18/22 01:59 Glucose (Glucose 10 Tab/Tube) 4 - 8 tab PO UD PRN; Protocol PRN Reason: Hypoglycemia Treatment Stop: 09/18/22 01:59 Glucose (Glucose 40% Gel 15 Gm Tube) 15 - 30 gm PO UD PRN; Protocol PRN Reason: Hypoglycemia Protocol Stop: 09/18/22 01:59 Guaifenesin/Dextromethorphan (Guaifenesin/Dextrom Syrup 100mg/10mg 5ml Udc) 5 ml PO Q6H PRN PRN Reason: Cough Stop: 09/18/22 02:49 Last Admin: 08/19/22 03:21 Dose: 5 ml Heparin Sodium/Dextrose (Heparin Sodium/Dextrose) 25,000 units in 500 mls @ 35 mls/hr IV .[id number] [facility]; Protocol Stop: 09/20/22 11:59 Last Titration: 08/22/22 11:15 Dose: 1,750 units/hr, 35 mls/hr Bumetanide 4 mg/ Syringe 16 mls @ 4 mls/min IV BID@0900,1700 [facility] Stop: 09/21/22 08:59 Last Admin: 08/22/22 16:55 Dose: 4 mls/min Insulin Aspart (Insulin Aspart Per Unit Charge) 0 units SC ACHS [facility] Stop: 09/18/22 02:29 Last Admin: 08/22/22 17:04 Dose: Not Given Insulin Glargine (Lantus Per Unit Charge) 20 units SC BID [facility] Stop: 09/18/22 20:59 Last Admin: 08/22/22 08:34 Dose: 20 units Levothyroxine Sodium (Levothyroxine Sodium 150 Mcg Tablet) 150 mcg PO DAILYBB [facility] Stop: 09/18/22 06:29 Last Admin: 08/22/22 06:32 Dose: 150 mcg Metoprolol Succinate (Metoprolol Succ 25mg Ext Rel Tab) 25 mg PO HS [facility] Stop: 09/18/22 20:59 Last Admin: 08/21/22 20:35 Dose: 25 mg Miscellaneous (Carbohydrates For Hypoglycemia ) 15 - 30 gm PO UD PRN PRN Reason: Hypoglycemia Protocol Stop: 09/18/22 01:59 Miscellaneous Information (Pharmacy Glycemic Mgmt Consult) 1 each N/A UD PRN PRN Reason: Consult Stop: 09/18/22 01:59 Nitroglycerin (Nitroglycerin 2% Ointment 30gm Tube) 0.5 inch EXT Q6H [facility] Stop: 09/18/22 15:59 Last Admin: 08/22/22 17:00 Dose: 0.5 inch Fluorometholone 0.1% Eye Drops - Non- Formulary Patient's Own Med 1 each OPR BID [facility] Stop: 09/21/22 20:59 Ondansetron HCl (Ondansetron Inj 2 Mg/Ml 2 Ml Vial) 4 mg IV Q4H PRN PRN Reason: Nausea Stop: 09/18/22 09:30 Potassium Citrate (Potassium Citrate 10 Meq Tab) 10 meq PO BID [facility] Stop: 09/18/22 08:59 Last Admin: 08/22/22 11:05 Dose: 10 meq Pravastatin Sodium (Pravastatin Sod 40 Mg Tab) 80 mg PO HS [facility] Stop: 09/18/22 20:59 Last Admin: 08/21/22 20:37 Dose: 80 mg Prednisolone Acetate (Prednisolone Acetate 1% Op Susp 5 Ml Btl) 1 drops OPR QID [facility] Stop: 09/21/22 15:40 Last Admin: 08/22/22 16:54 Dose: 1 drops Warfarin Sodium (Warfarin Sod 1 Mg Tab) 1 mg PO MoWeFr@1600 [facility] Stop: 09/21/22 15:59 Last Admin: 08/22/22 16:55 Dose: 1 mg Warfarin Sodium (Warfarin Sod 2 Mg Tab) 2 mg PO [id number]@1600 [facility] Stop: 09/20/22 15:59 Last Admin: 08/21/22 17:12 Dose: 2 mg PG Care Time/CCT Total # of Minutes Spent Total Time Spent with Patient: Total time spent is greater than 50% in coordination of care (as documented) at patient's floor/unit and/or counseling patient: Coding Level of Care Code 07049 SUB INP/OBS CARE 3/50MIN Diagnoses Acute on chronic heart failure with preserved ejection fraction (HFpEF) I50.33 Acute respiratory failure with hypoxia J96.01 S/P aortic valve replacement with bioprosthetic valve Z95.3 Mitral regurgitation I34.0 Cardiac valve disease etiology: etiology unspecified CAD in [place] artery I25.10 Atrial flutter I48.92 A-fib I48.2 Atrial fibrillation type: permanent Hypertension I10 S/P CABG (coronary artery bypass graft) Z95.1 (4) Mitral regurgitation Cardiac valve disease etiology: etiology unspecified Qualified Code(s): I34.0 - Nonrheumatic mitral (valve) insufficiency (7) A-fib Atrial fibrillation type: permanent Qualified Code(s): I48.2 - Chronic atrial fibrillation
[2022-08-22] MEDS: dilTIAZem HCl 60 MG TAB PO SCH (20:43)
[2022-08-22] MEDS: ASPIRIN 81 MG ECTAB PO SCH (20:43)
[2022-08-22] MEDS: METOPROLOL SUCC 25MG EXT REL TAB PO SCH (20:44)
[2022-08-22] MEDS: PRAVASTATIN SOD 40 MG TAB PO SCH (20:44)
[2022-08-22] MEDS: EYE OPR SCH (20:45)
[2022-08-22] MEDS: FLUOROMETHOLONE 0.1% OPR SCH (20:45)
[2022-08-22 22:08] LABS: Appearance Urine Cloudy (Clear); Bacteria Urine Automated Negative (Negative); Blood Urine 3+ (Negative); Color Urine Red; Epithelial Cell Urine Auto >30 /lpf (0-5); Glucose Urine UA Negative (Negative); Ketones Urine Negative (Negative); Leukocyte Esterase Urine 3+ (Negative); Nitrite Urine Negative (Negative); Protein Urine 2+ (Negative); Specific Gravity Urine 1.012 (1.000-1.030); Urobilinogen Urine Negative (Negative); WBC Urine Automated >30 /hpf (0-5)
[2022-08-22 22:09] LABS: Bilirubin Urine 1+ (Negative)
[2022-08-22 22:19] LABS: Cast Urine Automated 0 /lpf (0-5); RBC Urine Automated >30 /hpf (0-4)
--- NOTE | 2022-08-22 22:38 | XRay Report ---
SINGLE VIEW CHEST CLINICAL HISTORY: Dyspnea FINDINGS: 2 AP, portable, upright chest radiographs are compared to study dated 08/21/2022. The examina tion is degraded by portable technique and patient rotation. The patient is status post midline longo otomy and cardiac valve surgery. The heart is enlarged. There is pulmonary vascular congestion and mi ld pulmonary edema. This is mostly worsened from previous. There are bibasilar airspace opacities. No large pleural effusion or pneumothorax is seen. The skeletal structures are osteopenic. The bony tho rax is grossly intact. IMPRESSION: 1. Cardiomegaly with evidence of congestive failure and pulmonary edema. This is modestly worsened as compared to 08/21/2022. 2. Bibasilar airspace opacities could represent scarring/atelectasis, a component of pulmonary edema, and/or a superimposed pneumonitis. Clinical correlation will be required. Radiographic follow-up to resolution is recommended. ACT 112: Negative or not required by law. Electronically signed by: Cortez David M.D. 08/22/2022 10:37 PM
[2022-08-23] MEDS: ASPIRIN 81 MG ECTAB PO SCH ×2 (01:09→21:28)
[2022-08-23] MEDS: PRAVASTATIN SOD 40 MG TAB PO SCH ×2 (01:09→21:26)
[2022-08-23] MEDS: dilTIAZem HCl 60 MG TAB PO SCH ×2 (01:09→21:27)
[2022-08-23] MEDS: METOPROLOL SUCC 25MG EXT REL TAB PO SCH ×2 (01:09→21:27)
[2022-08-23] MEDS: POTASSIUM CITRATE 10 MEQ TAB PO SCH ×4 (01:09→21:27)
[2022-08-23] MEDS: NITROGLYCERIN 2% OINTMENT 30GM TUBE EXT SCH ×4 (05:37→21:28)
[2022-08-23] MEDS: LEVOTHYROXINE SODIUM 150 MCG TABLET PO SCH (05:38)
[2022-08-23 06:25] LABS: Hematocrit (blood only) 31.5 % (37.0-47.0); Hemoglobin 9.8 g/dl (12.0-16.0); Mean Corpuscular Hemoglobin 27.6 pg (25.0-34.0); Mean Corpuscular Hgb Conc 31.1 g/dL (32.0-36.0); Mean Corpuscular Volume 88.7 fL (80.0-100.0); Mean Platelet Volume 10.2 fL (9.4-12.4); Platelet Count 227 K/uL (130-400); RDW Coefficient of Variation 15.5 % (11.5-14.5); RDW Standard Deviation 50.4 fL (36.4-46.3); Red Blood Count 3.55 M/uL (4.20-5.40); White Blood Count 11.06 K/ul (4.8-10.8)
[2022-08-23 06:56] LABS: INR 2.5 (0.9-1.1); Prothrombin Time 25.6 Seconds (9.0-12.0)
--- NOTE | 2022-08-23 08:20 | Hospitalist Progress Note ---
Date of Service August 23, 2022 Assessment & Plan (1) Acute respiratory failure with hypoxia: Plan: 2/2 HFpEF exacerbation and aspiration pneumonia, also suspect some element of OHS Taken off of BIPAP continuous on 08/21 due to clinical improvement Continue CHF treatment and PNA tx below Pulmonology also consulted this admission and recommended BIPAP nightly (02/22 @ 60% with a backup rate of 18), will encourage this, though patient has been extremely resistant (2) Aspiration pneumonia: Plan: CXR 08/22 with bibasilar airspace opacities could represent scarring/atelectasis, a component of pulmonary edema, and/or a superimposed pneumonitis Patient with continued confusion/agitation at times overnight, not much improvement overnight with respiratory status, CT Chest done CT Chest shows left perihilar with left greater than right mid to lower lung zone predominant airspace opacities suggestive of pneumonia/aspiration Will start Zosyn for aspiration pneumonia, suspect this is at least part of why patient has metabolic encephalopathy (3) Acute on chronic heart failure with preserved ejection fraction (HFpEF): Plan: Patient presented with SOB and AHRF requiring BIPAP, with evidence of pulmonary edema and bibasilar consolidations on CXR BNP elevated at 318, and patient with increased weight and leg swelling She was initially given several doses of Lasix followed by Bumex with not much diuretic response, transitioned to Bumex gtt with good response, now on Bumex 4mg IV BID Overall net negative this admission, continue Bumex 4mg IV BID with Diuril prn if no good UOP. Continue to monitor I/O and daily weights TTE did not show any depressed EF, suspect HFpEF Cardiology and Nephrology consulted and appreciate recommendations Cardiology recommends continuing beta-wing and statin. Ischemic etiology will be reassessed when volume status improves (4) Acute metabolic encephalopathy: Plan: In the setting of hypoxic hypercapnic respiratory failure, CHF exacerbation, aspiration PNA Element of delirium in the acutely ill elderly patient also suspected, delirium precautions Can consider medication such as Haldol if needed for agitation overnight vs. soft restraints if absolutely necessary (5) A-fib: Plan: Continue beta-wing and diltiazem INR was initially supratherapeutic >9.5 and reversed with vitamin K INR therapeutic at 2.5 today, continue warfarin dosing and DC heparin gtt (6) Hematuria: Plan: Noted by nursing staff with hematuria in the setting of heparin/warfarin concurrent therapy briefly, DC heparin as above Hgb baseline 10-12, Hgb 9.8 today, continue to monitor with daily CBC Anticipate improvement with cessation of heparin (7) Uncontrolled type 2 diabetes mellitus with neurologic complication, with long-term current use of insulin: Plan: Continue basal/bolus insulin (8) S/P aortic valve replacement with bioprosthetic valve: Plan: Appropriately functioning bioprosthetic aortic valve Plan Patient is still severely ill and requiring increased oxygen from no baseline needs, ultimately plan for continued treatment of CHF exacerbation and PNA, followed by PT and OT evaluation for dispo planning Admission and Anticipated Discharge Date Admission Date: August 19, 2022 Subjective Overnight with some agitation, some concern for possible worsening fluid status overnight. Patient is on 7 L nasal cannula at this time. Patient denies any symptoms to me, however does not appear to be answering meaningfully because, for example, she will talk about being short of breath but after explaining that she needs nasal cannula we will try again to pull it off. Review of Systems Review of Systems: All systems reviewed & are unremarkable except as noted in Subjective Physical Exam Constitutional: WD/WN, vitals as above Respiratory: normal respiratory effort, saturating well on 7LNC, bilateral crackles/rhonchi noted Cardiovascular: HR irregularly irregular, no murmurs, mild JVD and peripheral edema noted Gastrointestinal (Abdomen): normal bowel sounds, soft, nontender, no hepatosplenomegaly Skin: no rashes, warm and dry Psychiatric: Arouses to voice when asleep, awake but not alert, does not answer questions meaningfully Results & Data Results & Data Vital Signs (Past 12 Hours) Vital Signs Temp Pulse Resp BP BP Pulse Ox O2 Del Method 08/23/22 04:41 36.8 C 94 H 22 164/72 H 96 Nasal Cannula 08/23/22 00:10 32 H 95 Other 08/22/22 23:38 36.9 C 85 26 H 114/69 95 Nasal Cannula 08/22/22 23:24 94 Nasal Cannula 08/22/22 20:50 95 Other 08/22/22 22:54 Nasal Cannula O2 Flow Rate 08/23/22 04:41 5.0 08/23/22 00:10 08/22/22 23:38 5.0 08/22/22 23:24 5 08/22/22 20:50 5 08/22/22 22:54 5 PG Care Time/CCT Total # of Minutes Spent Total Time Spent with Patient: Total time spent is greater than 50% in coordination of care (as documented) at patient's floor/unit and/or counseling patient: Coding Level of Care Code 26207 SUB INP/OBS CARE 3/50MIN Diagnoses Acute respiratory failure with hypoxia J96.01 Aspiration pneumonia J69.0 Acute on chronic heart failure with preserved ejection fraction (HFpEF) I50.33 Acute metabolic encephalopathy G93.41 A-fib I48.2 Atrial fibrillation type: permanent Hematuria R31.9 Uncontrolled type 2 diabetes mellitus with neurologic complication, with long-t erm current use of insulin E11.49; E11.65; Z79.4 S/P aortic valve replacement with bioprosthetic valve Z95.3 (5) A-fib Atrial fibrillation type: permanent Qualified Code(s): I48.2 - Chronic atrial fibrillation
[2022-08-23 08:27] LABS: Calcium 9.4 mg/dl (8.6-10.3); Potassium 3.2 mmol/L (3.5-5.1)
[2022-08-23 08:28] LABS: Partial Thromboplastin Ratio 2.7
[2022-08-23 08:33] LABS: Creatinine Clr Calc Pharmacy 52.4 ml/min; Est GFR (African American) 53.3 ml/min; Partial Thromboplastin Time 76.1 Seconds (21.0-31.0)
[2022-08-23] MEDS: INSULIN ASPART PER UNIT CHARGE SC SCH ×4 (08:36→21:31)
--- NOTE | 2022-08-23 09:26 | CT Scan Report ---
CT chest diagnostic wo con CT DOSE: 798.64 mGy.cm CLINICAL HISTORY: 77 years-old Female with AHRF. Acute shortness of breath with reported heart failu re TECHNIQUE: Multiaxial CT images of the chest were performed without contrast. A dose lowering techni que was utilized adhering to the principles of ALARA. COMPARISON: 08/22/2022. FINDINGS: Study is degraded by respiratory motion artifact. No thyroid nodule identified. Enlarged me diastinal and hilar lymph nodes including subcarinal lymph nodes measuring up to 1.4 cm. Pretracheal lymph nodes measure up to 1.9 x 1.67 m. Subcentimeter axillary chain lymph nodes. Lipoma posterior to the right shoulder, 7.3 cm. [id number] cardiomegaly. No pericardial effusion. Prior median s ternotomy with extensive coronary artery calcifications. Ascending thoracic aortic prosthesis. Athero sclerosis of the thoracic aorta without aneurysm. Dilation of the pulmonary artery measuring up to 3. 8 cm suggestive of pulmonary arterial hypertension. Left atrial exclusion device. Small pleural effusions. No pneumothorax. Intralobular septal thickening. Dense left perihilar and le ft greater than right bibasilar consolidation. Volume loss of the left lower lobe. Endobronchial secr etions with bibasilar mucous plugging and air bronchograms. No acute process of the imaged upper abdomen. The spleen and liver appear enlarged. Unremarkable soft tissues. No acute fracture. IMPRESSION: 1. Limited exam as above. 2. Cardiomegaly with pulmonary arterial hypertension, pulmonary edema and small pleural effusions. 3. Tracheobronchial secretions with mucous plugging. 4. Left perihilar with left greater than right mid to lower lung zone predominant airspace opacities suggestive of pneumonia/aspiration. Follow-up imaging recommended after treatment course in order to document complete resolution. 5. Mediastinal and hilar lymphadenopathy. ACT 112: Negative or not required by law. Electronically signed by: Tony Bradford M.D. 08/23/2022 9:23 AM
[2022-08-23] MEDS ORDERED: CHLOROTHIAZIDE SODIUM 250 MG in DEXTROSE 5% 50 ML IV ONE (09:45)
[2022-08-23] MEDS: BUMETANIDE 4 MG in SYRINGE 0 ML IV SCH ×2 (10:20→16:20)
[2022-08-23] MEDS: LANTUS PER UNIT CHARGE SC SCH ×2 (10:23→21:31)
[2022-08-23] MEDS ORDERED: PIPERACILLIN/TAZOBACTAM 4.5 GM in DEXTROSE 5% 100 ML IV ONE (10:30)
[2022-08-23] MEDS: prednisoLONE acetate 1% OP SUSP 5 ML BTL OPR SCH ×4 (10:34→21:30)
[2022-08-23] MEDS: EYE OPR SCH ×2 (10:36→21:29)
[2022-08-23] MEDS: FLUOROMETHOLONE 0.1% OPR SCH ×2 (10:36→21:29)
[2022-08-23] MEDS: dilTIAZem HCL 240 MG CAPCR PO SCH ×2 (10:37→12:01)
[2022-08-23] MEDS: allopurinoL 100 MG TAB PO SCH (10:37)
--- NOTE | 2022-08-23 11:03 | Nephrology Progress Note ---
Date of Service August 23, 2022 Assessment & Plan (1) Acute kidney injury superimposed on CKD: Plan: Non-oliguric. Electrolytes acceptable. Volume status improving. Baseline creatinine 1.3 mg/dL. Followed by Dr. Alicea. Proteinuria low grade. Urine microscopy acellular. Renal US without obstruction. Medications appropriately dosed for kidney function. Remains on K citrate for history of stones and diuretic use. Additional 40 mEq KCl provided this AM. Document I/O's. Repeat metabolic profile tomorrow AM. (2) Acute on chronic heart failure with preserved ejection fraction (HFpEF): Plan: Continue Bumex 4 mg IV BID. Diuril provided this AM. Plan of care reviewed with Dr. Miller and Dr. Maya this AM. Low sodium diet and daily fluid restriction. Document strict I/O's. Repeat m etabolic profile tomorrow AM. Not maintained on JHON/ARB due to history of ERIN. Consider revisiting in the future. Defer RAAS blockade and SGLT2i option for now in the acute setting. (3) Pulmonary hypertension: Plan: Clinically improving with diuresis. BIPAP weaned off and patient refusing now. (4) Hypertension: Plan: BP acceptable. Remains rate controlled Afib with metoprolol and diltiazem. Admission and Anticipated Discharge Date Admission Date: August 19, 2022 Subjective Confusion persists with some reported waxing and waning. Noted agitation overnight. Maria A was sleeping this morning. No fevers or chills. No events on tele. Review of Systems Review of Systems: All systems reviewed & are unremarkable except as noted in HPI & below Physical Exam Constitutional: well developed, + obese and + frail appearing; no acute distress Eyes: + anicteric sclerae; no corneal abnormality Neck: normal visual inspection, trachea midline and + thick neck Respiratory: + tachypneic Auscultation: + rhonchi Cardiovascular: Rate/Rhythm: + irregularly irregular Heart Sounds: normal S1, normal S2 and + murmur Vessels: + JVD Extremities: + edema (improving) Musculoskeletal: Extremities: no cyanosis and no clubbing Skin: + turgor decreased; no jaundice Neurologic: Motor/Sensory: no tremor and no asterixis Psychiatric: Orientation: alert, oriented x 3 and cooperative Results & Data Vital Signs (Past 12 Hours) Vital Signs Temp Pulse Resp BP BP Pulse Ox O2 Del Method 08/23/22 08:20 36.4 C L 83 22 143/89 H 91 Nasal Cannula 08/23/22 04:41 36.8 C 94 H 22 164/72 H 96 Nasal Cannula 08/23/22 00:10 32 H 95 Other 08/22/22 23:38 36.9 C 85 26 H 114/69 95 Nasal Cannula 08/22/22 23:24 94 Nasal Cannula O2 Flow Rate 08/23/22 08:20 6 08/23/22 04:41 5.0 08/23/22 00:10 08/22/22 23:38 5.0 08/22/22 23:24 5 Laboratory Results Laboratory Results - last 24 hr 08/22/22 08/22/22 08/22/22 11:52 16:44 17:44 WBC RBC Hgb Hct MCV MCH MCHC RDW Std Deviation RDW Coeff of [place] Plt Count MPV PT INR APTT PTT Ratio VBG pH 7.43 H VBG pCO2 53 H VBG pO2 41 VBG HCO3 35 VBG O2 Saturation 68.9 VBG Base Excess 9.1 Sodium Potassium Chloride Carbon Dioxide Anion Gap BUN Creatinine Est Cr Clr Drug Dosing Est GFR ( Amer) Est GFR (Non-Af Amer) BUN/Creatinine Ratio Glucose POC Glucose 162 H 135 H Calcium Ammonia C-Reactive Protein Procalcitonin Urine Color Urine Appearance Urine pH Ur Specific [place] Urine Protein Urine Glucose (UA) Urine Ketones Urine Blood Urine Nitrite Urine Bilirubin Urine Urobilinogen Ur Leukocyte Esterase Urine WBC (Auto) Urine RBC (Auto) U Hyaline Cast (Auto) U Epithel Cells (Auto) Urine Bacteria (Auto) Urine Yeast 08/22/22 08/22/22 08/22/22 17:44 17:44 20:15 WBC RBC Hgb Hct MCV MCH MCHC RDW Std Deviation RDW Coeff of [place] Plt Count MPV PT INR APTT PTT Ratio VBG pH VBG pCO2 VBG pO2 VBG HCO3 VBG O2 Saturation VBG Base Excess Sodium Potassium Chloride Carbon Dioxide Anion Gap BUN Creatinine Est Cr Clr Drug Dosing Est GFR ( Amer) Est GFR (Non-Af Amer) BUN/Creatinine Ratio Glucose POC Glucose 123 H Calcium Ammonia C-Reactive Protein 17.67 H Procalcitonin 0.24 Urine Color Urine Appearance Urine pH Ur Specific [place] Urine Protein Urine Glucose (UA) Urine Ketones Urine Blood Urine Nitrite Urine Bilirubin Urine Urobilinogen Ur Leukocyte Esterase Urine WBC (Auto) Urine RBC (Auto) U Hyaline Cast (Auto) U Epithel Cells (Auto) Urine Bacteria (Auto) Urine Yeast 08/22/22 08/23/22 08/23/22 21:15 06:01 06:01 WBC 11.06 H RBC 3.55 L Hgb 9.8 L Hct 31.5 L MCV 88.7 MCH 27.6 MCHC 31.1 L RDW Std Deviation 50.4 H RDW Coeff of [place] 15.5 H Plt Count 227 MPV 10.2 PT INR APTT PTT Ratio VBG pH VBG pCO2 VBG pO2 VBG HCO3 VBG O2 Saturation VBG Base Excess Sodium 147 H Potassium 3.2 L Chloride 104 Carbon Dioxide 33 H Anion Gap 10 BUN 58 H Creatinine 1.16 D Est Cr Clr Drug Dosing 52.4 Est GFR ( Amer) 53.3 Est GFR (Non-Af Amer) 46.0 BUN/Creatinine Ratio 50.0 H Glucose 106 H POC Glucose Calcium 9.4 Ammonia C-Reactive Protein Procalcitonin Urine Color Red Urine Appearance Cloudy A Urine pH 5.0 Ur Specific [place] 1.012 Urine Protein 2+ H Urine Glucose (UA) Negative Urine Ketones Negative Urine Blood 3+ H Urine Nitrite Negative Urine Bilirubin 1+ H Urine Urobilinogen Negative Ur Leukocyte Esterase 3+ H Urine WBC (Auto) >30 H Urine RBC (Auto) >30 H U Hyaline Cast (Auto) 0 U Epithel Cells (Auto) >30 H Urine Bacteria (Auto) Negative Urine Yeast Not Reportable 08/23/22 08/23/22 08/23/22 06:01 06:01 07:46 WBC RBC Hgb Hct MCV MCH MCHC RDW Std Deviation RDW Coeff of [place] Plt Count MPV PT 25.6 H INR 2.5 H APTT 76.1 H* PTT Ratio 2.7 VBG pH VBG pCO2 VBG pO2 VBG HCO3 VBG O2 Saturation VBG Base Excess Sodium Potassium Chloride Carbon Dioxide Anion Gap BUN Creatinine Est Cr Clr Drug Dosing Est GFR ( Amer) Est GFR (Non-Af Amer) BUN/Creatinine Ratio Glucose POC Glucose 108 H Calcium Ammonia C-Reactive Protein Procalcitonin Urine Color Urine Appearance Urine pH Ur Specific [place] Urine Protein Urine Glucose (UA) Urine Ketones Urine Blood Urine Nitrite Urine Bilirubin Urine Urobilinogen Ur Leukocyte Esterase Urine WBC (Auto) Urine RBC (Auto) U Hyaline Cast (Auto) U Epithel Cells (Auto) Urine Bacteria (Auto) Urine Yeast 08/23/22 08:40 WBC RBC Hgb Hct MCV MCH MCHC RDW Std Deviation RDW Coeff of [place] Plt Count MPV PT INR APTT PTT Ratio VBG pH VBG pCO2 VBG pO2 VBG HCO3 VBG O2 Saturation VBG Base Excess Sodium Potassium Chloride Carbon Dioxide Anion Gap BUN Creatinine Est Cr Clr Drug Dosing Est GFR ( Amer) Est GFR (Non-Af Amer) BUN/Creatinine Ratio Glucose POC Glucose Calcium Ammonia 63.0 C-Reactive Protein Procalcitonin Urine Color Urine Appearance Urine pH Ur Specific [place] Urine Protein Urine Glucose (UA) Urine Ketones Urine Blood Urine Nitrite Urine Bilirubin Urine Urobilinogen Ur Leukocyte Esterase Urine WBC (Auto) Urine RBC (Auto) U Hyaline Cast (Auto) U Epithel Cells (Auto) Urine Bacteria (Auto) Urine Yeast PG Care Time/CCT Total # of Minutes Spent Total Time Spent with Patient: Total time spent is greater than 50% in coordination of care (as documented) at patient's floor/unit and/or counseling patient: Coding Level of Care Code 22505 SUB INP/OBS CARE 3/50MIN Diagnoses Acute kidney injury superimposed on CKD N17.9; N18.9 Acute on chronic heart failure with preserved ejection fraction (HFpEF) I50.33 Pulmonary hypertension I27.20 Hypertension I10
[2022-08-23] MEDS ORDERED: POTASSIUM CHLORIDE CRTAB 20 MEQ TABCR PO STA (11:04)
--- NOTE | 2022-08-23 11:29 | Cardiology Progress Note ---
Date of Service August 23, 2022 Assessment & Plan (1) Acute on chronic heart failure with preserved ejection fraction (HFpEF): (2) Acute respiratory failure with hypoxia: (3) S/P aortic valve replacement with bioprosthetic valve: (4) Mitral regurgitation: (5) CAD in [place] artery: (6) Atrial flutter: (7) A-fib: (8) Hypertension: (9) S/P CABG (coronary artery bypass graft): Plan ASSESSMENT/PLAN: 1. Acute on chronic heart failure with preserved EF: Volume status continues to improve. Edema much improved. Continue Bumex 4 mg IV twice daily. She received Diuril this morning. Nitro paste ordered for preload reduction and hypertension (08/19/22). Has tolerated BiPAP intermittently. Oxygenation improved. Strict I's and O's. Daily weights. Goal net negative I's and O's. Can consider SGLT2 inhibitor in the future. 2. Acute respiratory failure with hypoxia: Oxygen supplementation requirement has declined. Has used BiPAP. Pleural effusions on chest x-rays. Noted to have findings suggestive of pneumonia/aspiration on CT imaging on 08/23/2022. As per primary hospitalist service. Mucous plugging also reported. Current situation likely CHF and pneumonia. 3. CAD s/p CABG (ANDRADE to LAD): Intermittent chest discomfort in the setting of CHF exacerbation several days ago but none recently. High-sensitivity troponin on slightly elevated on presentation, despite prolonged chest pain episodes, does not suggest acute coronary syndrome. Has not reported any further chest discomfort. Continue beta-wing and statin therapy. LBBB on initial ECG but bundle branch block also noted on outpatient echo in June. 4. Aortic valve replacement: Recent echo demonstrated appropriately functioning bioprosthetic aortic valve (06/29/2022). SBE prophylaxis for dental procedures. 5. Atrial flutter/fibrillation: Permanent. Continue beta-wing and diltiazem. Heart rate has improved with improved respiratory status. Continue anticoagulation for stroke risk reduction. INR was initially supratherapeutic, likely related to hepatic congestion. She has received vitamin K by hospitalist. INR once again therapeutic. Heparin drip discontinued. She has undergone left atrial appendage ablation with 35mm atrial clip. She has declined NOAC. 6. Hypertension: Blood pressure has improved with diuresis and nitroglycerin application. Normotensive today. 7. Mitral regurgitation: Not fully interrogated on this hospitalized echo due to decompensation. Can be evaluated further in the future. Not likely plaing a role in current situation. 8. Leukocytosis and confusion: See the imaging concerning for pneumonia per radiology. Antibiotic therapy initiated 08/23/2022 by hospitalist service. was ill a few days before she became ill and he still is having URI symptoms. 9. Disposition: Cardiology will continue to follow. Heart failure program [place]. Patient care communicated with Dr. Hendrix (hospitalist service) and Dr. Clancy of Nephrology. Admission and Anticipated Discharge Date Admission Date: August 19, 2022 Subjective Patient was seen this morning with her at the bedside. She has been less interactive today. She responded to verbal stimuli but was not engaging in conversation. Review of systems unable to be obtained. Physical Exam Physical Exam: Gen.: No acute distress. Somnolent but arousable to verbal stimuli. HEENT: Anicteric sclera. Neck: Mild JVD. Thick neck. Cardiac: No ventricular heave. Irregularly irregular. Normal heart rate. Normal S1-S2. 1/6 early peaking systolic ejection murmur heard best at right upper sternal border. No rubs or gallops. Pulmonary: Decreased breath sounds throughout. Coarse breath sounds bilaterally. Abdomen: Obese. Soft, nontender, nondistended, with normoactive bowel sounds. No bruits noted. Extremities: 2+ radial pulses bilaterally. 1+ bilateral lower extremity edema to the knees. No cyanosis. Results & Data Vital Signs (Past 12 Hours) Vital Signs Temp Pulse Resp BP BP Pulse Ox O2 Del Method 08/23/22 08:20 36.4 C L 83 22 143/89 H 91 Nasal Cannula 08/23/22 04:41 36.8 C 94 H 22 164/72 H 96 Nasal Cannula 08/23/22 00:10 32 H 95 Other 08/22/22 23:38 36.9 C 85 26 H 114/69 95 Nasal Cannula O2 Flow Rate 08/23/22 08:20 6 08/23/22 04:41 5.0 08/23/22 00:10 08/22/22 23:38 5.0 Intake & Output 08/21/22 08/22/22 08/23/22 08/24/22 06:59 06:59 06:59 06:59 Intake Total 444.750 / 331.775 0511.334 / 1293.334 650.000 / 650.000 606.850 / 606.850 Output Total 2400 / 2400 3300 / 3300 1675 / 1675 Balance -1954.250 / -5.250 -2005.666 / -2006.666 -1025.000 / -1025.000 606.850 / 606.850 Weight 240 lb 11.916 oz Laboratory Results Laboratory Results - last 24 hr 08/22/22 08/22/22 08/22/22 16:44 17:44 17:44 WBC RBC Hgb Hct MCV MCH MCHC RDW Std Deviation RDW Coeff of [place] Plt Count MPV PT INR APTT PTT Ratio VBG pH 7.43 H VBG pCO2 53 H VBG pO2 41 VBG HCO3 35 VBG O2 Saturation 68.9 VBG Base Excess 9.1 Sodium Potassium Chloride Carbon Dioxide Anion Gap BUN Creatinine Est Cr Clr Drug Dosing Est GFR ( Amer) Est GFR (Non-Af Amer) BUN/Creatinine Ratio Glucose POC Glucose 135 H Calcium Ammonia C-Reactive Protein 17.67 H Procalcitonin Urine Color Urine Appearance Urine pH Ur Specific [place] Urine Protein Urine Glucose (UA) Urine Ketones Urine Blood Urine Nitrite Urine Bilirubin Urine Urobilinogen Ur Leukocyte Esterase Urine WBC (Auto) Urine RBC (Auto) U Hyaline Cast (Auto) U Epithel Cells (Auto) Urine Bacteria (Auto) Urine Yeast 08/22/22 08/22/22 08/22/22 17:44 20:15 21:15 WBC RBC Hgb Hct MCV MCH MCHC RDW Std Deviation RDW Coeff of [place] Plt Count MPV PT INR APTT PTT Ratio VBG pH VBG pCO2 VBG pO2 VBG HCO3 VBG O2 Saturation VBG Base Excess Sodium Potassium Chloride Carbon Dioxide Anion Gap BUN Creatinine Est Cr Clr Drug Dosing Est GFR ( Amer) Est GFR (Non-Af Amer) BUN/Creatinine Ratio Glucose POC Glucose 123 H Calcium Ammonia C-Reactive Protein Procalcitonin 0.24 Urine Color Red Urine Appearance Cloudy A Urine pH 5.0 Ur Specific [place] 1.012 Urine Protein 2+ H Urine Glucose (UA) Negative Urine Ketones Negative Urine Blood 3+ H Urine Nitrite Negative Urine Bilirubin 1+ H Urine Urobilinogen Negative Ur Leukocyte Esterase 3+ H Urine WBC (Auto) >30 H Urine RBC (Auto) >30 H U Hyaline Cast (Auto) 0 U Epithel Cells (Auto) >30 H Urine Bacteria (Auto) Negative Urine Yeast Not Reportable 08/23/22 08/23/22 08/23/22 06:01 06:01 06:01 WBC 11.06 H RBC 3.55 L Hgb 9.8 L Hct 31.5 L MCV 88.7 MCH 27.6 MCHC 31.1 L RDW Std Deviation 50.4 H RDW Coeff of [place] 15.5 H Plt Count 227 MPV 10.2 PT 25.6 H INR 2.5 H APTT PTT Ratio VBG pH VBG pCO2 VBG pO2 VBG HCO3 VBG O2 Saturation VBG Base Excess Sodium 147 H Potassium 3.2 L Chloride 104 Carbon Dioxide 33 H Anion Gap 10 BUN 58 H Creatinine 1.16 D Est Cr Clr Drug Dosing 52.4 Est GFR ( Amer) 53.3 Est GFR (Non-Af Amer) 46.0 BUN/Creatinine Ratio 50.0 H Glucose 106 H POC Glucose Calcium 9.4 Ammonia C-Reactive Protein Procalcitonin Urine Color Urine Appearance Urine pH Ur Specific [place] Urine Protein Urine Glucose (UA) Urine Ketones Urine Blood Urine Nitrite Urine Bilirubin Urine Urobilinogen Ur Leukocyte Esterase Urine WBC (Auto) Urine RBC (Auto) U Hyaline Cast (Auto) U Epithel Cells (Auto) Urine Bacteria (Auto) Urine Yeast 08/23/22 08/23/22 08/23/22 06:01 07:46 08:40 WBC RBC Hgb Hct MCV MCH MCHC RDW Std Deviation RDW Coeff of [place] Plt Count MPV PT INR APTT 76.1 H* PTT Ratio 2.7 VBG pH VBG pCO2 VBG pO2 VBG HCO3 VBG O2 Saturation VBG Base Excess Sodium Potassium Chloride Carbon Dioxide Anion Gap BUN Creatinine Est Cr Clr Drug Dosing Est GFR ( Amer) Est GFR (Non-Af Amer) BUN/Creatinine Ratio Glucose POC Glucose 108 H Calcium Ammonia 63.0 C-Reactive Protein Procalcitonin Urine Color Urine Appearance Urine pH Ur Specific [place] Urine Protein Urine Glucose (UA) Urine Ketones Urine Blood Urine Nitrite Urine Bilirubin Urine Urobilinogen Ur Leukocyte Esterase Urine WBC (Auto) Urine RBC (Auto) U Hyaline Cast (Auto) U Epithel Cells (Auto) Urine Bacteria (Auto) Urine Yeast 08/23/22 11:42 WBC RBC Hgb Hct MCV MCH MCHC RDW Std Deviation RDW Coeff of [place] Plt Count MPV PT INR APTT PTT Ratio VBG pH VBG pCO2 VBG pO2 VBG HCO3 VBG O2 Saturation VBG Base Excess Sodium Potassium Chloride Carbon Dioxide Anion Gap BUN Creatinine Est Cr Clr Drug Dosing Est GFR ( Amer) Est GFR (Non-Af Amer) BUN/Creatinine Ratio Glucose POC Glucose 140 H Calcium Ammonia C-Reactive Protein Procalcitonin Urine Color Urine Appearance Urine pH Ur Specific [place] Urine Protein Urine Glucose (UA) Urine Ketones Urine Blood Urine Nitrite Urine Bilirubin Urine Urobilinogen Ur Leukocyte Esterase Urine WBC (Auto) Urine RBC (Auto) U Hyaline Cast (Auto) U Epithel Cells (Auto) Urine Bacteria (Auto) Urine Yeast Diagnostic Findings Telemetry personally reviewed: Atrial fibrillation with reasonable heart rate. Labs reviewed from 08/23/2022, demonstrating improving creatinine level, hypokalemia, mild hypernatremia, anemia, improving leukocytosis. CT chest 08/23/2022: Limited exam per radiology. Pulmonary arterial hypertension, pulmonary edema, small pleural effusions. Tracheobronchial secretions with mucous plugging. Left perihilar with left greater than right mid to lower lung zone predominant airspace opacities suggestive of pneumonia/aspiration. Mediastinal and hilar lymphadenopathy. Nephrology note from today reviewed. Medications Administered Current Inpatient Medications Acetaminophen (Acetaminophen 325 Mg Tab) 650 mg PO Q4H PRN PRN Reason: Pain or Fever Stop: 09/18/22 01:59 Last Admin: 08/22/22 04:59 Dose: 650 mg Albuterol (Albut/Ipratrop 3mg/0.5mg Neb 3 Ml Vial) 3 ml NEB Q4R PRN; Protocol PRN Reason: Wheezing Stop: 08/25/22 16:00 Last Admin: 08/21/22 07:55 Dose: 3 ml Allopurinol (Allopurinol 100 Mg Tab) 100 mg PO DAILY [facility] Stop: 09/18/22 08:59 Last Admin: 08/23/22 10:37 Dose: Not Given Aspirin (Aspirin 81 Mg Ectab) 81 mg PO QPM [facility] Stop: 09/18/22 20:59 Last Admin: 08/23/22 01:09 Dose: Not Given Azelastine HCl (Azelastine Hcl 0.1% Nasal 200 Sprays/27,400 Mcg Btl) 1 sprays NA DAILY PRN PRN Reason: ALLERGIES Stop: 09/18/22 02:13 Cetirizine HCl (Cetirizine Hcl 10 Mg Tablet) 10 mg PO QAM PRN PRN Reason: Allergy Symptoms Stop: 09/18/22 01:59 Last Admin: 08/21/22 08:48 Dose: 10 mg Dextrose (Dextrose 50% 50 Ml Syringe) 25 - 50 ml IV UD PRN; Protocol PRN Reason: Hypoglycemia Protocol Stop: 09/18/22 01:59 Diltiazem HCl (Diltiazem Hcl 60 Mg Tab) 60 mg PO HS [facility] Stop: 09/18/22 20:59 Last Admin: 08/23/22 01:09 Dose: Not Given Diltiazem HCl (Diltiazem Hcl 240 Mg Capcr) 240 mg PO QAM [facility] Stop: 09/18/22 08:59 Last Admin: 08/23/22 12:01 Dose: 240 mg Ergocalciferol (Ergocalciferol 50,000 Units 1250 Mcg Cap) 50,000 units PO Q30D [facility] Stop: 09/29/22 08:59 Glucagon (Glucagon For Inj 1 Mg Vial) 1 mg SQ UD PRN; Protocol PRN Reason: Hypoglycemia Protocol Stop: 09/18/22 01:59 Glucose (Glucose 10 Tab/Tube) 4 - 8 tab PO UD PRN; Protocol PRN Reason: Hypoglycemia Treatment Stop: 09/18/22 01:59 Glucose (Glucose 40% Gel 15 Gm Tube) 15 - 30 gm PO UD PRN; Protocol PRN Reason: Hypoglycemia Protocol Stop: 09/18/22 01:59 Guaifenesin/Dextromethorphan (Guaifenesin/Dextrom Syrup 100mg/10mg 5ml Udc) 5 ml PO Q6H PRN PRN Reason: Cough Stop: 09/18/22 02:49 Last Admin: 08/19/22 03:21 Dose: 5 ml Bumetanide 4 mg/ Syringe 16 mls @ 4 mls/min IV BID@0900,1700 [facility] Stop: 09/21/22 08:59 Last Admin: 08/23/22 10:20 Dose: 4 mls/min Piperacillin Sod/Tazobactam (Sod 4.5 gm/ Dextrose) 120 mls @ 30 mls/hr IV Q8H [facility]; Protocol Stop: 08/30/22 15:59 Insulin Aspart (Insulin Aspart Per Unit Charge) 0 units SC ACHS [facility] Stop: 09/18/22 02:29 Last Admin: 08/23/22 08:36 Dose: Not Given Insulin Glargine (Lantus Per Unit Charge) 20 units SC BID [facility] Stop: 09/18/22 20:59 Last Admin: 08/23/22 10:23 Dose: 20 units Levothyroxine Sodium (Levothyroxine Sodium 150 Mcg Tablet) 150 mcg PO DAILYBB [facility] Stop: 09/18/22 06:29 Last Admin: 08/23/22 05:38 Dose: Not Given Metoprolol Succinate (Metoprolol Succ 25mg Ext Rel Tab) 25 mg PO [facility] Stop: 09/18/22 20:59 Last Admin: 08/23/22 01:09 Dose: Not Given Miscellaneous (Carbohydrates For Hypoglycemia ) 15 - 30 gm PO UD PRN PRN Reason: Hypoglycemia Protocol Stop: 09/18/22 01:59 Miscellaneous Information (Pharmacy Glycemic Mgmt Consult) 1 each N/A UD PRN PRN Reason: Consult Stop: 09/18/22 01:59 Nitroglycerin (Nitroglycerin 2% Ointment 30gm Tube) 0.5 inch EXT Q6H [facility] Stop: 09/18/22 15:59 Last Admin: 08/23/22 10:44 Dose: 0.5 inch Fluorometholone 0.1% Eye Drops - Non- Formulary Patient's Own Med 1 each OPR BID [facility] Stop: 09/21/22 20:59 Last Admin: 08/23/22 10:36 Dose: 1 drops Ondansetron HCl (Ondansetron Inj 2 Mg/Ml 2 Ml Vial) 4 mg IV Q4H PRN PRN Reason: Nausea Stop: 09/18/22 09:30 Potassium Citrate (Potassium Citrate 10 Meq Tab) 10 meq PO BID [facility] Stop: 09/18/22 08:59 Last Admin: 08/23/22 12:00 Dose: 10 meq Pravastatin Sodium (Pravastatin Sod 40 Mg Tab) 80 mg PO HS [facility] Stop: 09/18/22 20:59 Last Admin: 08/23/22 01:09 Dose: Not Given Prednisolone Acetate (Prednisolone Acetate 1% Op Susp 5 Ml Btl) 1 drops OPR QID [facility] Stop: 09/21/22 15:40 Last Admin: 08/23/22 10:34 Dose: 1 drops Warfarin Sodium (Warfarin Sod 1 Mg Tab) 1 mg PO [email or web address] [facility] Stop: 09/21/22 15:59 Last Admin: 08/22/22 16:55 Dose: 1 mg Warfarin Sodium (Warfarin Sod 2 Mg Tab) 2 mg PO [email or web address] [facility] Stop: 09/20/22 15:59 Last Admin: 08/21/22 17:12 Dose: 2 mg PG Care Time/CCT Total # of Minutes Spent Total Time Spent with Patient: Total time spent is greater than 50% in coordination of care (as documented) at patient's floor/unit and/or counseling patient: Coding Level of Care Code 37305 SUB INP/OBS CARE 3/50MIN Diagnoses Acute on chronic heart failure with preserved ejection fraction (HFpEF) I50.33 Acute respiratory failure with hypoxia J96.01 S/P aortic valve replacement with bioprosthetic valve Z95.3 Mitral regurgitation I34.0 Cardiac valve disease etiology: etiology unspecified CAD in [place] artery I25.10 Atrial flutter I48.92 A-fib I48.2 Atrial fibrillation type: permanent Hypertension I10 S/P CABG (coronary artery bypass graft) Z95.1 (4) Mitral regurgitation Cardiac valve disease etiology: etiology unspecified Qualified Code(s): I34.0 - Nonrheumatic mitral (valve) insufficiency (7) A-fib Atrial fibrillation type: permanent Qualified Code(s): I48.2 - Chronic atrial fibrillation
[2022-08-23 13:31] LABS: Adenovirus PCR Not Detected (NotDetected); Coronavirus 229E PCR Not Detected (NotDetected); Coronavirus CoV-2 (COVID19)PCR Not Detected (NotDetected); Coronavirus HKU1 PCR Not Detected (NotDetected); Coronavirus NL63 PCR Not Detected (NotDetected); Coronavirus OC43PCR Not Detected (NotDetected); Human Metapneumovirus PCR Not Detected (NotDetected); Rhinovirus/Enterovirus PCR Not Detected (NotDetected)
[2022-08-23 13:32] LABS: Bordetella parapertussis PCR Not Detected (NotDetected); Bordetella pertussis PCR Not Detected (NotDetected); Chlamydia pneumoniae PCR Not Detected (NotDetected); Influenza A PCR Not Detected (NotDetected); Influenza B PCR Not Detected (NotDetected); Mycoplasma pneumoniae PCR Not Detected (NotDetected); Parainfluenza Virus 1 PCR Not Detected (NotDetected); Parainfluenza Virus 2 PCR Not Detected (NotDetected); Parainfluenza Virus 3 PCR Not Detected (NotDetected); Parainfluenza Virus 4 PCR Not Detected (NotDetected); Respiratory Syncytial VirusPCR Not Detected (NotDetected)
[2022-08-23] MEDS: PIPERACILLIN/TAZOBACTAM 4.5 GM in DEXTROSE 5% 100 ML IV SCH ×2 (16:17→23:47)
[2022-08-23] MEDS: WARFARIN SOD 2 MG TAB PO SCH (16:19)
[2022-08-23 16:59] LABS: Calcium 9.6 mg/dl (8.6-10.3); Potassium 3.4 mmol/L (3.5-5.1)
[2022-08-23 17:05] LABS: BUN Creatinine Ratio 40.3 (10-20); Est GFR (African American) 49.2 ml/min; Est GFR (Non-African American) 42.5 ml/min
[2022-08-23] MEDS: guaiFENesin/DEXTROM SYRUP 100MG/10MG 5ML UDC PO PRN (22:17)
[2022-08-24] MEDS: NITROGLYCERIN 2% OINTMENT 30GM TUBE EXT SCH ×2 (04:16→11:46)
[2022-08-24] MEDS: LEVOTHYROXINE SODIUM 150 MCG TABLET PO SCH (06:24)
[2022-08-24 06:36] LABS: Hematocrit (blood only) 30.3 % (37.0-47.0); Hemoglobin 9.9 g/dl (12.0-16.0); Mean Corpuscular Hemoglobin 28.5 pg (25.0-34.0); Mean Corpuscular Hgb Conc 32.7 g/dL (32.0-36.0); Mean Corpuscular Volume 87.3 fL (80.0-100.0); Platelet Count 211 K/uL (130-400); RDW Coefficient of Variation 15.7 % (11.5-14.5); RDW Standard Deviation 49.6 fL (36.4-46.3); Red Blood Count 3.47 M/uL (4.20-5.40)
[2022-08-24 06:53] LABS: Albumin Level 3.3 gm/dl (3.4-5.0); BUN Creatinine Ratio 37.2 (10-20); Calcium 9.3 mg/dl (8.6-10.3); Creatinine Clr Calc Pharmacy 47.1 ml/min; Est GFR (African American) 46.9 ml/min; Est GFR (Non-African American) 40.5 ml/min; Magnesium 1.9 mg/dl (1.7-2.4); Phosphorus 3.3 mg/dl (2.5-4.9); Potassium 3.5 mmol/L (3.5-5.1)
[2022-08-24 06:59] LABS: INR 3.5 (0.9-1.1); Prothrombin Time 35.4 Seconds (9.0-12.0)
--- NOTE | 2022-08-24 07:23 | Hospitalist Progress Note ---
Date of Service August 24, 2022 Assessment & Plan (1) Acute respiratory failure with hypoxia: Plan: 2/2 HFpEF exacerbation and aspiration pneumonia, also suspect some element of OHS Taken off of BIPAP continuous on 08/21 due to clinical improvement Continue CHF treatment and PNA tx below Pulmonology also consulted this admission and recommended BIPAP nightly (02/22 @ 60% with a backup rate of 18), will encourage this, though patient has been extremely resistant (2) Aspiration pneumonia: Plan: CXR 08/22 with bibasilar airspace opacities could represent scarring/atelectasis, a component of pulmonary edema, and/or a superimposed pneumonitis CT Chest shows left perihilar with left greater than right mid to lower lung zone predominant airspace opacities suggestive of pneumonia/aspiration Continue Zosyn for aspiration pneumonia, WBC count improving (3) Acute on chronic heart failure with preserved ejection fraction (HFpEF): Plan: Patient presented with SOB and AHRF requiring BIPAP, with evidence of pulmonary edema and bibasilar consolidations on CXR BNP elevated at 318, and patient with increased weight and leg swelling She was initially given several doses of Lasix followed by Bumex with not much diuretic response, transitioned to Bumex gtt with good response, now on Bumex 4mg IV BID Overall net negative this admission, weight 121kg->108kg, continue Bumex 4mg IV BID with Diuril prn if no good UOP TTE did not show any depressed EF, suspect HFpEF Cardiology and Nephrology consulted and appreciate recommendations Continue beta-wing and statin. Ischemic etiology will be reassessed when volume status improves (4) Acute metabolic encephalopathy: Plan: In the setting of hypoxic hypercapnic respiratory failure, CHF exacerbation, aspiration PNA Biofire repeated, negative Element of delirium in the acutely ill elderly patient also suspected, delirium precautions Can consider medication such as Haldol if needed for agitation overnight vs. soft restraints if absolutely necessary (5) A-fib: Plan: Continue beta-wing and diltiazem INR was initially supratherapeutic >9.5 and reversed with vitamin K INR supratherapeutic at 3.5 today, hold warfarin with repeat INR tomorrow (6) Hematuria: Plan: Noted by nursing staff with hematuria in the setting of heparin/warfarin concurrent therapy briefly, DC heparin as above Hgb baseline 10-12, Hgb 9.9 today, continue to monitor with daily CBC Resolved 08/24 (7) Uncontrolled type 2 diabetes mellitus with neurologic complication, with long-term current use of insulin: Plan: Continue basal/bolus insulin (8) S/P aortic valve replacement with bioprosthetic valve: Plan: Appropriately functioning bioprosthetic aortic valve Plan Patient is still severely ill and requiring increased oxygen from no baseline needs, ultimately plan for continued treatment of CHF exacerbation and PNA, followed by PT and OT evaluation for dispo planning Admission and Anticipated Discharge Date Admission Date: August 19, 2022 Subjective Pleasantly confused overnight. Had to be reminded several times to leave oxygen on. More calm when around. Reports some SOB but better than earlier in admission. Review of Systems Review of Systems: All systems reviewed & are unremarkable except as noted in Subjective Physical Exam Constitutional: WD/WN, vitals as above Respiratory: normal respiratory effort, saturating well on NC, poor air movement Cardiovascular: HR irregularly irregular, no murmurs, mild JVD and peripheral edema noted Gastrointestinal (Abdomen): normal bowel sounds, soft, nontender, no hepatosplenomegaly Skin: no rashes, warm and dry Psychiatric: Arouses to voice when asleep, awake and alert to self, a bit more conversive Results & Data Results & Data Vital Signs (Past 12 Hours) Vital Signs Temp Pulse Pulse Resp BP Pulse Ox O2 Del Method 08/24/22 04:15 36.4 C L 79 18 120/59 L 98 Nasal Cannula 08/23/22 23:05 36.8 C 72 24 113/68 99 Nasal Cannula 08/23/22 23:18 80 08/23/22 22:10 Nasal Cannula 08/23/22 19:50 36.7 C 85 20 133/68 99 Nasal Cannula O2 Flow Rate 08/24/22 04:15 8.0 08/23/22 23:05 8.0 08/23/22 23:18 08/23/22 22:10 8 08/23/22 19:50 8.0 PG Care Time/CCT Total # of Minutes Spent Total Time Spent with Patient: Total time spent is greater than 50% in coordination of care (as documented) at patient's floor/unit and/or counseling patient: Coding Level of Care Code 52124 SUB INP/OBS CARE 3/50MIN Diagnoses Acute respiratory failure with hypoxia J96.01 Aspiration pneumonia J69.0 Acute on chronic heart failure with preserved ejection fraction (HFpEF) I50.33 Acute metabolic encephalopathy G93.41 A-fib I48.2 Atrial fibrillation type: permanent Hematuria R31.9 Uncontrolled type 2 diabetes mellitus with neurologic complication, with long- term current use of insulin E11.49; E11.65; Z79.4 S/P aortic valve replacement with bioprosthetic valve Z95.3 (5) A-fib Atrial fibrillation type: permanent Qualified Code(s): I48.2 - Chronic atrial fibrillation
--- NOTE | 2022-08-24 09:12 | Pharmacy Report ---
Pharmacy Glycemic Short Note 2 - Date of Service August 24, 2022 - Glycemic Short BSG Results (Last 24 hours): 08/23/22 08/23/22 08/23/22 11:42 16:26 16:44 Glucose 109 H POC Glucose 140 H 134 H 08/23/22 08/24/22 08/24/22 21:18 05:55 07:58 Glucose 127 H POC Glucose 152 H 125 H OUTPATIENT ANTIDIABETIC REGIMEN: * NPH Insulin 12-16 units QPM * Regular Insulin 6-8 units TIDM * Metformin ER 1000 mg PO BID * HbA1c = 7.1% on 08/18/22 ASSESSMENT: 08/24/22 * Blood sugars well controlled on current regime, no changes in insulin at this time. * Patient still requiring 7L O2/day, IV Zosyn. 08/22/22 * BSGs have been stable on current regimen. * Novolog parameters were loosened slightly yesterday d/t downward trend of BSGs throughout the day. * No further changes are indicated at this time. 08/19 * 77 y/o F admitted for CHF exacerbation last night. She has history of Type 2 diabetes managed on basal and bolus insulins and oral Metformin at home. * BSGs have been above 200 mg/dl consistently since last night despite patient receiving basal 15 units at HS yesterday. * Novolog was ordered based on stress of 2 last night. * Fasting BSG = 244 mg/dl today. Added 15 units of basal insulin again this AM but pre-lunch BSG still at 241 mg/dl. * Novolog parameters tightened with lunch and increased basal insulin BID starting at HS today. PLAN FOR INPATIENT GLYCEMIC CONTROL: * Hold outpatient diabetes medications * Basal insulin * Lantus 20 units SQ BID * Bolus insulin * NovoLog per scale ACHS or Q6hrs while NPO * Goal Range: Low 110 mg/dL - High 140 mg/dL * Correction Factor: 20 mg/dL/unit * Nutritional / Prandial insulin per carb ratio of 1 unit per 6 grams CHO consumed
[2022-08-24] MEDS: CETIRIZINE HCL 10 MG TABLET PO PRN (09:45)
[2022-08-24] MEDS: LANTUS PER UNIT CHARGE SC SCH ×2 (09:45→20:49)
[2022-08-24] MEDS: guaiFENesin/DEXTROM SYRUP 100MG/10MG 5ML UDC PO PRN ×2 (09:45→20:51)
[2022-08-24] MEDS: INSULIN ASPART PER UNIT CHARGE SC SCH ×4 (09:45→20:44)
[2022-08-24] MEDS: dilTIAZem HCL 240 MG CAPCR PO SCH (09:45)
[2022-08-24] MEDS: allopurinoL 100 MG TAB PO SCH (09:45)
[2022-08-24] MEDS: POTASSIUM CITRATE 10 MEQ TAB PO SCH ×2 (09:45→20:53)
[2022-08-24] MEDS: POLYETHYLENE (MIRALAX) 17 GM PACK PO SCH (09:45)
[2022-08-24] MEDS: prednisoLONE acetate 1% OP SUSP 5 ML BTL OPR SCH ×4 (09:46→20:52)
[2022-08-24] MEDS: FLUOROMETHOLONE 0.1% OPR SCH ×2 (09:46→20:50)
[2022-08-24] MEDS: EYE OPR SCH ×2 (09:46→20:50)
[2022-08-24] MEDS: BUMETANIDE 4 MG in SYRINGE 0 ML IV SCH ×2 (09:46→18:24)
[2022-08-24] MEDS: PIPERACILLIN/TAZOBACTAM 4.5 GM in DEXTROSE 5% 100 ML IV SCH ×3 (09:48→23:51)
--- NOTE | 2022-08-24 10:16 | Nephrology Progress Note ---
Date of Service August 24, 2022 Assessment & Plan (1) Acute kidney injury superimposed on CKD: Plan: Non-oliguric. Electrolytes acceptable. Volume status improving. Baseline creatinine 1.3 mg/dL. Followed by Dr. Alicea. Proteinuria low grade. Urine microscopy acellular. Renal US without obstruction. Medications appropriately dosed for kidney function. Remains on K citrate for history of stones and diuretic use. Additional 40 mEq KCl provided this AM. Document I/O's. Repeat metabolic profile tomorrow AM. (2) Acute on chronic heart failure with preserved ejection fraction (HFpEF): Plan: Continue Bumex 4 mg IV BID. Diuril provided yesterday AM. Negative >2 L in past 24 hours. Low sodium diet and daily fluid restriction. Document strict I/O's. Repeat metabolic profile tomorrow AM. Not maintained on JHON/ARB due to history of ERIN. Consider revisiting in the future. (3) Pulmonary hypertension: Plan: Clinical improvement with diuresis but unfortunately gains have been slow and overall condition is guarded. Now with concerns for superimposed aspiration pneumonitis with possible pneumonia. (4) Hypertension: Plan: BP acceptable. Remains rate controlled Afib with metoprolol and diltiazem. EKG to be updated this AM. Admission and Anticipated Discharge Date Admission Date: August 19, 2022 Subjective No acute events overnight. Maria A was resting comfortably in bed this morning. She reported persistent dyspnea. She also reported a cough with some chest congestion. Denies chest pain or palpitations. No fevers or chills. Remains slightly confused. Answering questions with very short - one or two words - and not always responding to questions. Review of Systems Review of Systems: All systems reviewed & are unremarkable except as noted in HPI & below Physical Exam Constitutional: well developed, + obese and + frail appearing; no acute distress Eyes: + anicteric sclerae; no corneal abnormality Neck: normal visual inspection, trachea midline and + thick neck Respiratory: + tachypneic Auscultation: + rhonchi and + wheezes Cardiovascular: Rate/Rhythm: + irregularly irregular Heart Sounds: normal S1, normal S2 and + murmur Vessels: + JVD Extremities: + edema (improving) Musculoskeletal: Extremities: no cyanosis and no clubbing Skin: + turgor decreased; no jaundice Neurologic: Motor/Sensory: no tremor and no asterixis Psychiatric: Orientation: alert and cooperative; + not oriented x 3 Results & Data Vital Signs (Past 12 Hours) Vital Signs Temp Pulse Pulse Resp BP Pulse Ox O2 Del Method 08/24/22 08:07 36.5 C 70 22 126/84 93 Nasal Cannula 08/24/22 04:15 36.4 C L 79 18 120/59 L 98 Nasal Cannula 08/23/22 23:05 36.8 C 72 24 113/68 99 Nasal Cannula 08/23/22 23:18 80 O2 Flow Rate 08/24/22 08:07 8 08/24/22 04:15 8.0 08/23/22 23:05 8.0 08/23/22 23:18 Laboratory Results Laboratory Results - last 24 hr 08/23/22 08/23/22 08/23/22 11:42 16:26 16:44 WBC RBC Hgb Hct MCV MCH MCHC RDW Std Deviation RDW Coeff of [place] Plt Count MPV PT INR Sodium 145 Potassium 3.4 L Chloride 99 Carbon Dioxide 38 H Anion Gap 8 BUN 50 H Creatinine 1.24 H Est Cr Clr Drug Dosing 49.0 Est GFR ( Amer) 49.2 Est GFR (Non-Af Amer) 42.5 BUN/Creatinine Ratio 40.3 H Glucose 109 H POC Glucose 140 H 134 H Calcium 9.6 Phosphorus Magnesium Albumin Adenovirus (PCR) B. pertussis DNA (PCR) B.parapertussis DNA PCR C. pneumoniae DNA (PCR) Coronavirus OC43 (PCR) Coronavirus HKU1 (PCR) Coronavirus 229E (PCR) SARS-CoV-2 (PCR) Coronavirus NL63 (PCR) Human Metapneumovir PCR Influenza Type A (PCR) Influenza Type B (PCR) M. pneumoniae (PCR) Parainfluenza 1 (PCR) Parainfluenza 2 (PCR) Parainfluenza 3 (PCR) Parainfluenza 4 (PCR) RSV (PCR) Entero/Rhino (PCR) 08/23/22 08/23/22 08/24/22 21:18 Unknown 05:55 WBC 10.70 RBC 3.47 L Hgb 9.9 L Hct 30.3 L MCV 87.3 MCH 28.5 MCHC 32.7 RDW Std Deviation 49.6 H RDW Coeff of [place] 15.7 H Plt Count 211 MPV 10.0 PT INR Sodium Potassium Chloride Carbon Dioxide Anion Gap BUN Creatinine Est Cr Clr Drug Dosing Est GFR ( Amer) Est GFR (Non-Af Amer) BUN/Creatinine Ratio Glucose POC Glucose 152 H Calcium Phosphorus Magnesium Albumin Adenovirus (PCR) Not Detected B. pertussis DNA (PCR) Not Detected B.parapertussis DNA PCR Not Detected C. pneumoniae DNA (PCR) Not Detected Coronavirus OC43 (PCR) Not Detected Coronavirus HKU1 (PCR) Not Detected Coronavirus 229E (PCR) Not Detected SARS-CoV-2 (PCR) Not Detected Coronavirus NL63 (PCR) Not Detected Human Metapneumovir PCR Not Detected Influenza Type A (PCR) Not Detected Influenza Type B (PCR) Not Detected M. pneumoniae (PCR) Not Detected Parainfluenza 1 (PCR) Not Detected Parainfluenza 2 (PCR) Not Detected Parainfluenza 3 (PCR) Not Detected Parainfluenza 4 (PCR) Not Detected RSV (PCR) Not Detected Entero/Rhino (PCR) Not Detected 08/24/22 08/24/22 08/24/22 05:55 05:55 07:58 WBC RBC Hgb Hct MCV MCH MCHC RDW Std Deviation RDW Coeff of [place] Plt Count MPV PT 35.4 H INR 3.5 H Sodium 144 Potassium 3.5 Chloride 99 Carbon Dioxide 37 H Anion Gap 8 BUN 48 H Creatinine 1.29 H Est Cr Clr Drug Dosing 47.1 Est GFR ( Amer) 46.9 Est GFR (Non-Af Amer) 40.5 BUN/Creatinine Ratio 37.2 H Glucose 127 H POC Glucose 125 H Calcium 9.3 Phosphorus 3.3 Magnesium 1.9 Albumin 3.3 L Adenovirus (PCR) B. pertussis DNA (PCR) B.parapertussis DNA PCR C. pneumoniae DNA (PCR) Coronavirus OC43 (PCR) Coronavirus HKU1 (PCR) Coronavirus 229E (PCR) SARS-CoV-2 (PCR) Coronavirus NL63 (PCR) Human Metapneumovir PCR Influenza Type A (PCR) Influenza Type B (PCR) M. pneumoniae (PCR) Parainfluenza 1 (PCR) Parainfluenza 2 (PCR) Parainfluenza 3 (PCR) Parainfluenza 4 (PCR) RSV (PCR) Entero/Rhino (PCR) Diagnostic Findings Laboratory Results - last 24 hr 08/23/22 08/23/22 08/23/22 11:42 16:26 16:44 WBC RBC Hgb Hct MCV MCH MCHC RDW Std Deviation RDW Coeff of [place] Plt Count MPV PT INR Sodium 145 Potassium 3.4 L Chloride 99 Carbon Dioxide 38 H Anion Gap 8 BUN 50 H Creatinine 1.24 H Est Cr Clr Drug Dosing 49.0 Est GFR ( Amer) 49.2 Est GFR (Non-Af Amer) 42.5 BUN/Creatinine Ratio 40.3 H Glucose 109 H POC Glucose 140 H 134 H Calcium 9.6 Phosphorus Magnesium Albumin Adenovirus (PCR) B. pertussis DNA (PCR) B.parapertussis DNA PCR C. pneumoniae DNA (PCR) Coronavirus OC43 (PCR) Coronavirus HKU1 (PCR) Coronavirus 229E (PCR) SARS-CoV-2 (PCR) Coronavirus NL63 (PCR) Human Metapneumovir PCR Influenza Type A (PCR) Influenza Type B (PCR) M. pneumoniae (PCR) Parainfluenza 1 (PCR) Parainfluenza 2 (PCR) Parainfluenza 3 (PCR) Parainfluenza 4 (PCR) RSV (PCR) Entero/Rhino (PCR) 08/23/22 08/23/22 08/24/22 21:18 Unknown 05:55 WBC 10.70 RBC 3.47 L Hgb 9.9 L Hct 30.3 L MCV 87.3 MCH 28.5 MCHC 32.7 RDW Std Deviation 49.6 H RDW Coeff of [place] 15.7 H Plt Count 211 MPV 10.0 PT INR Sodium Potassium Chloride Carbon Dioxide Anion Gap BUN Creatinine Est Cr Clr Drug Dosing Est GFR ( Amer) Est GFR (Non-Af Amer) BUN/Creatinine Ratio Glucose POC Glucose 152 H Calcium Phosphorus Magnesium Albumin Adenovirus (PCR) Not Detected B. pertussis DNA (PCR) Not Detected B.parapertussis DNA PCR Not Detected C. pneumoniae DNA (PCR) Not Detected Coronavirus OC43 (PCR) Not Detected Coronavirus HKU1 (PCR) Not Detected Coronavirus 229E (PCR) Not Detected SARS-CoV-2 (PCR) Not Detected Coronavirus NL63 (PCR) Not Detected Human Metapneumovir PCR Not Detected Influenza Type A (PCR) Not Detected Influenza Type B (PCR) Not Detected M. pneumoniae (PCR) Not Detected Parainfluenza 1 (PCR) Not Detected Parainfluenza 2 (PCR) Not Detected Parainfluenza 3 (PCR) Not Detected Parainfluenza 4 (PCR) Not Detected RSV (PCR) Not Detected Entero/Rhino (PCR) Not Detected 08/24/22 08/24/22 08/24/22 05:55 05:55 07:58 WBC RBC Hgb Hct MCV MCH MCHC RDW Std Deviation RDW Coeff of [place] Plt Count MPV PT 35.4 H INR 3.5 H Sodium 144 Potassium 3.5 Chloride 99 Carbon Dioxide 37 H Anion Gap 8 BUN 48 H Creatinine 1.29 H Est Cr Clr Drug Dosing 47.1 Est GFR ( Amer) 46.9 Est GFR (Non-Af Amer) 40.5 BUN/Creatinine Ratio 37.2 H Glucose 127 H POC Glucose 125 H Calcium 9.3 Phosphorus 3.3 Magnesium 1.9 Albumin 3.3 L Adenovirus (PCR) B. pertussis DNA (PCR) B.parapertussis DNA PCR C. pneumoniae DNA (PCR) Coronavirus OC43 (PCR) Coronavirus HKU1 (PCR) Coronavirus 229E (PCR) SARS-CoV-2 (PCR) Coronavirus NL63 (PCR) Human Metapneumovir PCR Influenza Type A (PCR) Influenza Type B (PCR) M. pneumoniae (PCR) Parainfluenza 1 (PCR) Parainfluenza 2 (PCR) Parainfluenza 3 (PCR) Parainfluenza 4 (PCR) RSV (PCR) Entero/Rhino (PCR) PG Care Time/CCT Total # of Minutes Spent Total Time Spent with Patient: Total time spent is greater than 50% in coordination of care (as documented) at patient's floor/unit and/or counseling patient: Coding Level of Care Code 88654 SUB INP/OBS CARE 3/50MIN Diagnoses Acute kidney injury superimposed on CKD N17.9; N18.9 Acute on chronic heart failure with preserved ejection fraction (HFpEF) I50.33 Pulmonary hypertension I27.20 Hypertension I10
[2022-08-24] MEDS ORDERED: POTASSIUM CHLORIDE CRTAB 20 MEQ TABCR PO STA (10:17)
--- NOTE | 2022-08-24 14:25 | Cardiology Progress Note ---
Date of Service August 24, 2022 Assessment & Plan (1) Acute on chronic heart failure with preserved ejection fraction (HFpEF): (2) Acute respiratory failure with hypoxia: (3) S/P aortic valve replacement with bioprosthetic valve: (4) Mitral regurgitation: (5) CAD in [place] artery: (6) Atrial flutter: (7) A-fib: (8) Hypertension: (9) S/P CABG (coronary artery bypass graft): Plan ASSESSMENT/PLAN: 1. Acute on chronic heart failure with preserved EF: Volume status continues to improve. Edema much improved. Continue Bumex 4 mg IV twice daily. She has received intermittent doses of Diuril throughout the hospital stay. Diuresing well today without Diuril. Has tolerated BiPAP intermittently. Oxygenation improved. Strict I's and O's. Daily weights. Goal net negative I's and O's. Can consider SGLT2 inhibitor in the future. 2. Acute respiratory failure with hypoxia: Oxygen supplementation requirement has declined. Has used BiPAP. Pleural effusions on chest x-rays. Noted to have findings suggestive of pneumonia/aspiration on CT imaging on 08/23/2022. As per primary hospitalist service. Mucous plugging also reported. Current situation likely CHF and pneumonia. 3. CAD s/p CABG (ANDRADE to LAD): Intermittent chest discomfort in the setting of CHF exacerbation several days ago but none recently. High-sensitivity troponin on slightly elevated on presentation, despite prolonged chest pain episodes, does not suggest acute coronary syndrome. Has not reported any further chest discomfort. Continue beta-wing and statin therapy. LBBB on initial ECG but bundle branch block also noted on outpatient echo in June. 4. Aortic valve replacement: Recent echo demonstrated appropriately functioning bioprosthetic aortic valve (06/29/2022). SBE prophylaxis for dental procedures. 5. Atrial flutter/fibrillation: Permanent. Continue beta-wing and dil tiazem. Heart rate has improved with improved respiratory status. Continue anticoagulation for stroke risk reduction. INR was initially supratherapeutic, likely related to hepatic congestion. She has received vitamin K by hospitalist. INR once again therapeutic but significantly increased from yesterday. Warfarin once again on hold. She has undergone left atrial appendage ablation with 35mm atrial clip. She has declined NOAC. 6. Hypertension: Blood pressure has improved with diuresis and nitroglycerin application. Mostly normotensive today although has 1 outlier, elevated blood pressure. 7. Mitral regurgitation: Not fully interrogated on this hospitalized echo due to decompensation. Can be evaluated further in the future. Not likely plaing a role in current situation. 8. Leukocytosis and confusion: See the imaging concerning for pneumonia per radiology. Antibiotic therapy initiated 08/23/2022 by hospitalist service. was ill a few days before she became ill and he still is having URI symptoms. 9. Disposition: Cardiology will continue to follow. Heart failure program referral. Patient care communicated with Dr. Hendrix (hospitalist service). Admission and Anticipated Discharge Date Admission Date: August 19, 2022 Subjective She was seen this afternoon with her at the bedside. She still feels short of breath but improved. She denies chest pain, syncope, palpitations, or bleeding. She was more conversive today. Physical Exam Physical Exam: Gen.: No acute distress. Alert and oriented. HEENT: Anicteric sclera. Neck: Mild JVD. Hepatojugular reflux noted. Thick neck. Cardiac: No ventricular heave. Irregularly irregular. Normal heart rate. Normal S1-S2. 1/6 early peaking systolic ejection murmur heard best at right upper sternal border. No rubs or gallops. Pulmonary: Decreased breath sounds throughout. Abdomen: Obese. Soft, nontender, nondistended, with normoactive bowel sounds. No bruits noted. Extremities: 2+ radial pulses bilaterally. 1+ bilateral lower extremity edema to the knees. No cyanosis. Results & Data Vital Signs (Past 12 Hours) Vital Signs Temp Pulse Pulse Resp BP BP Pulse Ox 08/24/22 11:49 36.5 C 87 18 180/88 H 93 08/24/22 08:00 80 08/24/22 08:07 36.5 C 70 22 126/84 93 08/24/22 04:15 36.4 C L 79 18 120/59 L 98 O2 Del Method O2 Flow Rate 08/24/22 11:49 Room Air 08/24/22 08:00 08/24/22 08:07 Nasal Cannula 8 08/24/22 04:15 Nasal Cannula 8.0 Intake & Output 08/22/22 08/23/22 08/24/22 08/25/22 06:59 06:59 06:59 06:59 Intake Total 1293.334 / 1293.334 650.000 / 523.119 7498.850 / 1506.850 Output Total 3300 / 3300 1675 / 1675 3800 / 3800 1000 / 1000 Balance -2006.666 / -2006.666 -1025.000 / -1025.000 -2293.150 / -2293.150 -1000 / -1000 Weight 240 lb 11.916 oz 239 lb 13.807 oz Laboratory Results Laboratory Results - last 24 hr 08/23/22 08/23/22 08/23/22 16:26 16:44 21:18 WBC RBC Hgb Hct MCV MCH MCHC RDW Std Deviation RDW Coeff of [place] Plt Count MPV PT INR Sodium 145 Potassium 3.4 L Chloride 99 Carbon Dioxide 38 H Anion Gap 8 BUN 50 H Creatinine 1.24 H Est Cr Clr Drug Dosing 49.0 Est GFR ( Amer) 49.2 Est GFR (Non-Af Amer) 42.5 BUN/Creatinine Ratio 40.3 H Glucose 109 H POC Glucose 134 H 152 H Calcium 9.6 Phosphorus Magnesium Albumin 08/24/22 08/24/22 08/24/22 05:55 05:55 05:55 WBC 10.70 RBC 3.47 L Hgb 9.9 L Hct 30.3 L MCV 87.3 MCH 28.5 MCHC 32.7 RDW Std Deviation 49.6 H RDW Coeff of [place] 15.7 H Plt Count 211 MPV 10.0 PT 35.4 H INR 3.5 H Sodium 144 Potassium 3.5 Chloride 99 Carbon Dioxide 37 H Anion Gap 8 BUN 48 H Creatinine 1.29 H Est Cr Clr Drug Dosing 47.1 Est GFR ( Amer) 46.9 Est GFR (Non-Af Amer) 40.5 BUN/Creatinine Ratio 37.2 H Glucose 127 H POC Glucose Calcium 9.3 Phosphorus 3.3 Magnesium 1.9 Albumin 3.3 L 08/24/22 08/24/22 07:58 11:40 WBC RBC Hgb Hct MCV MCH MCHC RDW Std Deviation RDW Coeff of [place] Plt Count MPV PT INR Sodium Potassium Chloride Carbon Dioxide Anion Gap BUN Creatinine Est Cr Clr Drug Dosing Est GFR ( Amer) Est GFR (Non-Af Amer) BUN/Creatinine Ratio Glucose POC Glucose 125 H 151 H Calcium Phosphorus Magnesium Albumin Diagnostic Findings Telemetry personally reviewed: Atrial fibrillation. Labs reviewed from 08/24/2022: Stable hemoglobin, stable renal function, improving BUN, normal potassium. INR rapidly increased. Nephrology note reviewed. Medications Administered Current Inpatient Medications Acetaminophen (Acetaminophen 325 Mg Tab) 650 mg PO Q4H PRN PRN Reason: Pain or Fever Stop: 09/18/22 01:59 Last Admin: 08/22/22 04:59 Dose: 650 mg Albuterol (Albut/Ipratrop 3mg/0.5mg Neb 3 Ml Vial) 3 ml NEB Q4R PRN; Protocol PRN Reason: Wheezing Stop: 08/25/22 16:00 Last Admin: 08/21/22 07:55 Dose: 3 ml Allopurinol (Allopurinol 100 Mg Tab) 100 mg PO DAILY CHETNA Stop: 09/18/22 08:59 Last Admin: 08/24/22 09:45 Dose: 100 mg Aspirin (Aspirin 81 Mg Ectab) 81 mg PO QPM CHETNA Stop: 09/18/22 20:59 Last Admin: 08/23/22 21:28 Dose: 81 mg Azelastine HCl (Azelastine Hcl 0.1% Nasal 200 Sprays/27,400 Mcg Btl) 1 sprays NA DAILY PRN PRN Reason: ALLERGIES Stop: 09/18/22 02:13 Cetirizine HCl (Cetirizine Hcl 10 Mg Tablet) 10 mg PO QAM PRN PRN Reason: Allergy Symptoms Stop: 09/18/22 01:59 Last Admin: 08/24/22 09:45 Dose: 10 mg Dextrose (Dextrose 50% 50 Ml Syringe) 25 - 50 ml IV UD PRN; Protocol PRN Reason: Hypoglycemia Protocol Stop: 09/18/22 01:59 Diltiazem HCl (Diltiazem Hcl 60 Mg Tab) 60 mg PO HS CHETNA Stop: 09/18/22 20:59 Last Admin: 08/23/22 21:27 Dose: 60 mg Diltiazem HCl (Diltiazem Hcl 240 Mg Capcr) 240 mg PO QAM CHETNA Stop: 09/18/22 08:59 Last Admin: 08/24/22 09:45 Dose: 240 mg Ergocalciferol (Ergocalciferol 50,000 Units 1250 Mcg Cap) 50,000 units PO Q30D CHETNA Stop: 09/29/22 08:59 Glucagon (Glucagon For Inj 1 Mg Vial) 1 mg SQ UD PRN; Protocol PRN Reason: Hypoglycemia Protocol Stop: 09/18/22 01:59 Glucose (Glucose 10 Tab/Tube) 4 - 8 tab PO UD PRN; Protocol PRN Reason: Hypoglycemia Treatment Stop: 09/18/22 01:59 Glucose (Glucose 40% Gel 15 Gm Tube) 15 - 30 gm PO UD PRN; Protocol PRN Reason: Hypoglycemia Protocol Stop: 09/18/22 01:59 Guaifenesin/Dextromethorphan (Guaifenesin/Dextrom Syrup 100mg/10mg 5ml Udc) 5 ml PO Q6H PRN PRN Reason: Cough Stop: 09/18/22 02:49 Last Admin: 08/24/22 09:45 Dose: 5 ml Bumetanide 4 mg/ Syringe 16 mls @ 4 mls/min IV BID@0900,1700 [facility] Stop: 09/21/22 08:59 Last Admin: 08/24/22 09:46 Dose: 4 mls/min Piperacillin Sod/Tazobactam (Sod 4.5 gm/ Dextrose) 120 mls @ 30 mls/hr IV Q8H [facility]; Protocol Stop: 08/30/22 15:59 Last Infusion: 08/24/22 14:25 Dose: Infused Insulin Aspart (Insulin Aspart Per Unit Charge) 0 units SC ACHS [facility] Stop: 09/18/22 02:29 Last Admin: 08/24/22 13:01 Dose: 1 units Insulin Glargine (Lantus Per Unit Charge) 20 units SC BID [facility] Stop: 09/18/22 20:59 Last Admin: 08/24/22 09:45 Dose: 20 units Levothyroxine Sodium (Levothyroxine Sodium 150 Mcg Tablet) 150 mcg PO DAILYBB [facility] Stop: 09/18/22 06:29 Last Admin: 08/24/22 06:24 Dose: 150 mcg Metoprolol Succinate (Metoprolol Succ 25mg Ext Rel Tab) 25 mg PO HS [facility] Stop: 09/18/22 20:59 Last Admin: 08/23/22 21:27 Dose: 25 mg Miscellaneous (Carbohydrates For Hypoglycemia ) 15 - 30 gm PO UD PRN PRN Reason: Hypoglycemia Protocol Stop: 09/18/22 01:59 Miscellaneous Information (Pharmacy Glycemic Mgmt Consult) 1 each N/A UD PRN PRN Reason: Consult Stop: 09/18/22 01:59 Nitroglycerin (Nitroglycerin 2% Ointment 30gm Tube) 0.5 inch EXT Q6H [facility] Stop: 09/18/22 15:59 Last Admin: 08/24/22 11:46 Dose: 0.5 inch Fluorometholone 0.1% Eye Drops - Non- Formulary Patient's Own Med 1 each OPR BID [facility] Stop: 09/21/22 20:59 Last Admin: 08/24/22 09:46 Dose: 1 drops Ondansetron HCl (Ondansetron Inj 2 Mg/Ml 2 Ml Vial) 4 mg IV Q4H PRN PRN Reason: Nausea Stop: 09/18/22 09:30 Polyethylene Glycol (Polyethylene (Miralax) 17 Gm Pack) 17 gm PO DAILY [facility] Stop: 09/23/22 08:59 Last Admin: 08/24/22 09:45 Dose: 17 gm Potassium Citrate (Potassium Citrate 10 Meq Tab) 10 meq PO BID [facility] Stop: 09/18/22 08:59 Last Admin: 08/24/22 09:45 Dose: 10 meq Pravastatin Sodium (Pravastatin Sod 40 Mg Tab) 80 mg PO HS [facility] Stop: 09/18/22 20:59 Last Admin: 08/23/22 21:26 Dose: 80 mg Prednisolone Acetate (Prednisolone Acetate 1% Op Susp 5 Ml Btl) 1 drops OPR QID [facility] Stop: 09/21/22 15:40 Last Admin: 08/24/22 13:20 Dose: 1 drops Warfarin Sodium (Warfarin Sod 1 Mg Tab) 1 mg PO [email or web address]@1600 [facility] Stop: 09/21/22 15:59 Last Admin: 08/22/22 16:55 Dose: 1 mg Warfarin Sodium (Warfarin Sod 2 Mg Tab) 2 mg PO [email or web address]@1600 [facility] Stop: 09/20/22 15:59 Last Admin: 08/23/22 16:19 Dose: 2 mg PG Care Time/CCT Total # of Minutes Spent Total Time Spent with Patient: Total time spent is greater than 50% in coordination of care (as documented) at patient's floor/unit and/or counseling patient: Coding Level of Care Code 15252 SUB INP/OBS CARE 3/50MIN Diagnoses Acute on chronic heart failure with preserved ejection fraction (HFpEF) I50.33 Acute respiratory failure with hypoxia J96.01 S/P aortic valve replacement with bioprosthetic valve Z95.3 Mitral regurgitation I34.0 Cardiac valve disease etiology: etiology unspecified CAD in [place] artery I25.10 Atrial flutter I48.92 A-fib I48.2 Atrial fibrillation type: permanent Hypertension I10 S/P CABG (coronary artery bypass graft) Z95.1 (4) Mitral regurgitation Cardiac valve disease etiology: etiology unspecified Qualified Code(s): I34.0 - Nonrheumatic mitral (valve) insufficiency (7) A-fib Atrial fibrillation type: permanent Qualified Code(s): I48.2 - Chronic atrial fibrillation
[2022-08-24] MEDS: ACETAMINOPHEN 325 MG TAB PO PRN (15:51)
[2022-08-24] MEDS: PRAVASTATIN SOD 40 MG TAB PO SCH (20:53)
[2022-08-24] MEDS: ASPIRIN 81 MG ECTAB PO SCH (20:53)
[2022-08-24] MEDS: dilTIAZem HCl 60 MG TAB PO SCH (20:53)
[2022-08-24] MEDS: METOPROLOL SUCC 25MG EXT REL TAB PO SCH (20:53)
[2022-08-25 05:04] LABS: Hematocrit (blood only) 31.3 % (37.0-47.0); Hemoglobin 9.8 g/dl (12.0-16.0); Mean Corpuscular Hemoglobin 27.8 pg (25.0-34.0); Mean Corpuscular Hgb Conc 31.3 g/dL (32.0-36.0); Mean Corpuscular Volume 88.7 fL (80.0-100.0); Mean Platelet Volume 9.7 fL (9.4-12.4); Platelet Count 204 K/uL (130-400); RDW Coefficient of Variation 15.8 % (11.5-14.5); RDW Standard Deviation 50.2 fL (36.4-46.3); Red Blood Count 3.53 M/uL (4.20-5.40); White Blood Count 10.89 K/ul (4.8-10.8)
[2022-08-25] MEDS: LEVOTHYROXINE SODIUM 150 MCG TABLET PO SCH (05:38)
[2022-08-25 06:06] LABS: INR 5.1 (0.9-1.1); Prothrombin Time 50.3 Seconds (9.0-12.0)
--- NOTE | 2022-08-25 07:20 | Hospitalist Progress Note ---
Date of Service August 25, 2022 Assessment & Plan (1) Acute respiratory failure with hypoxia: Plan: 2/2 HFpEF exacerbation and aspiration pneumonia, also suspect some element of OHS Taken off of BIPAP continuous on 08/21 due to clinical improvement Continue CHF treatment and PNA tx Pulmonology consulted 08/25, for CXR with opacification of left lung field and mucus plugging; poor candidate for bronchoscopy, so will trial percussive vest therapy 4 times daily, CoughAssist, hypertonic saline, Mucinex and DuoNebs Repeat CXR in AM (2) Aspiration pneumonia: Plan: CXR 08/22 with bibasilar airspace opacities could represent scarring/atelectasis, a component of pulmonary edema, and/or a superimposed pneumonitis CT Chest shows left perihilar with left greater than right mid to lower lung zone predominant airspace opacities suggestive of pneumonia/aspiration CXR 08/25 with left lung opacification and mucus plugging Continue Zosyn for aspiration pneumonia, WBC count stable MRSA nares pending, add vancomycin if positive (3) Acute on chronic heart failure with preserved ejection fraction (HFpEF): Plan: Patient presented with SOB and AHRF requiring BIPAP, with evidence of pulmonary edema and bibasilar consolidations on CXR BNP elevated at 318, and patient with increased weight and leg swelling She was initially given several doses of Lasix followed by Bumex with not much diuretic response, transitioned to Bumex gtt with good response, now on Bumex 4mg IV BID Overall net negative this admission, weight 121kg->108kg, continue Bumex 4mg IV BID with Diuril prn if no good UOP TTE did not show any depressed EF, suspect HFpEF Cardiology and Nephrology consulted and appreciate recommendations Continue beta-wing and statin. Ischemic etiology can be reassessed when volume status improves (4) Acute metabolic encephalopathy: Plan: In the setting of hypoxic hypercapnic respiratory failure, CHF exacerbation, aspiration PNA Biofire repeated, negative Element of delirium in the acutely ill elderly patient also suspected, delirium precautions Can consider medication such as Haldol if needed for agitation overnight vs. soft restraints if absolutely necessary (5) A-fib: Plan: Continue beta-wing and diltiazem INR was initially supratherapeutic >9.5 and reversed with vitamin K INR supratherapeutic at 5.1 today, continue to hold warfarin with repeat INR tomorrow (6) Hematuria: Plan: Noted by nursing staff with hematuria in the setting of heparin/warfarin concurrent therapy briefly, DC heparin as above Hgb baseline 10-12, Hgb 9.8 today, continue to monitor with daily CBC Improving (7) Uncontrolled type 2 diabetes mellitus with neurologic complication, with long-term current use of insulin: Plan: Continue basal/bolus insulin (8) S/P aortic valve replacement with bioprosthetic valve: Plan: Appropriately functioning bioprosthetic aortic valve Plan Patient is still severely ill and requiring increased oxygen from no baseline ne eds, ultimately plan for continued treatment of CHF exacerbation and PNA, followed by PT and OT evaluation for dispo planning. Pulm, Nephro, and Cards consulted and appreciate recommendations. Admission and Anticipated Discharge Date Admission Date: August 19, 2022 Subjective Overnight without acute overnight events. This AM, reports not feeling well, short of breath at times. Oxygenating well on 7LNC. No other stated complaints. Review of Systems Review of Systems: All systems reviewed & are unremarkable except as noted in Subjective Physical Exam 2 Constitutional: WD/WN, vitals as above Respiratory: normal respiratory effort, saturating well on NC, decreased air sounds in left lung field, rhonchi Cardiovascular: HR irregularly irregular, no murmurs, mild JVD and peripheral edema Gastrointestinal (Abdomen): normal bowel sounds, soft, nontender, no hepatosplenomegaly Skin: no rashes, warm and dry Psychiatric: Alert, oriented to self Results & Data Results & Data Vital Signs (Past 12 Hours) Vital Signs Temp Pulse Resp BP Pulse Ox O2 Del Method O2 Flow Rate 08/25/22 04:21 37 C 79 18 111/62 89 L High Flow Nasal Cannula 08/24/22 20:00 High Flow Nasal Cannula 7 08/24/22 23:46 36.7 C 73 16 114/57 L 97 High Flow Nasal Cannula 08/24/22 19:42 36.6 C 74 20 133/78 100 Nasal Cannula 7 PG Care Time/CCT Total # of Minutes Spent Total Time Spent with Patient: Total time spent is greater than 50% in coordination of care (as documented) at patient's floor/unit and/or counseling patient: Coding Level of Care Code 91340 SUB INP/OBS CARE 3/50MIN Diagnoses Acute respiratory failure with hypoxia J96.01 Aspiration pneumonia J69.0 Acute on chronic heart failure with preserved ejection fraction (HFpEF) I50.33 Acute metabolic encephalopathy G93.41 A-fib I48.2 Atrial fibrillation type: permanent Hematuria R31.9 Uncontrolled type 2 diabetes mellitus with neurologic complication, with long- term current use of insulin E11.49; E11.65; Z79.4 S/P aortic valve replacement with bioprosthetic valve Z95.3 (5) A-fib Atrial fibrillation type: permanent Qualified Code(s): I48.2 - Chronic atrial fibrillation
--- NOTE | 2022-08-25 07:43 | XRay Report ---
XR chest 1V portable CLINICAL HISTORY: ongoing hypoxia (tx for CHF and PNA) COMPARISON STUDY: Chest radiograph August 22, 2022. Chest CT August 23, 2022. FINDINGS: There has been interval development of complete opacification of the left lung with left shruthi ng volume loss. Interstitial thickening within the right lung persist. There are median sternotomy wi res, a prosthetic aortic valve and left atrial appendage occluder device. No pneumothorax. Suspected small left pleural effusion, difficult to assess by radiography. IMPRESSION: Interval development of complete opacification of the left lung with volume loss. This s uggests left lung collapse, possibly due to mucous plugging. This finding will be called/faxed to the ordering provider at time of dictation. ACT 112: Negative or not required by law. Electronically signed by: Chance Maldonado M.D. 08/25/2022 7:40 AM
[2022-08-25 07:48] LABS: Base Excess VBG 17.8 mEq/L; HCO3 VBG 45 mmol/L; Oxygen Saturation VBG 68.9 %; PCO2 VBG 66 mmHg (38-50); PO2 VBG 40 mmHg; pH VBG 7.44 (7.36-7.41)
[2022-08-25 08:09] LABS: BUN Creatinine Ratio 32.5 (10-20); Calcium 9.3 mg/dl (8.6-10.3); Creatinine Clr Calc Pharmacy 48.2 ml/min; Est GFR (African American) 48.3 ml/min; Est GFR (Non-African American) 41.6 ml/min; Potassium 3.6 mmol/L (3.5-5.1)
--- NOTE | 2022-08-25 08:37 | Nephrology Progress Note ---
Date of Service August 25, 2022 Assessment & Plan (1) Acute kidney injury superimposed on CKD: Plan: * ERIN resolved * Baseline Cr ~ 1.0 (2) Acute on chronic heart failure with preserved ejection fraction (HFpEF): Plan: * Clinically euvolemic * VBG w/ pH 7.44, serum HCO3 has risen to 39 * Hold Bumex. Monitor UO, PRP, serum bicarbonate * CXR w/ L lung collapse likely related to mucous plugging. Discussed w/ primary service this am. They will contact Pulmonology for evaluation (3) Pulmonary hypertension: Plan: * Clinical improvement with diuresis (4) Hypertension: Plan: * BP acceptable. Remains rate controlled Afib with metoprolol and diltiazem Admission and Anticipated Discharge Date Admission Date: August 19, 2022 Subjective Mrs. Bernabe was evaluated in her hospital room this morning. She c/o weakness and remains dyspneic Review of Systems Constitutional: + weakness; no fever Eyes: no problem reported Ear, Nose, Mouth, Throat: no problem reported Respiratory: + dyspnea Cardiovascular: no chest pain Gastrointestinal: no nausea, no vomiting and no diarrhea/loose stools Physical Exam Constitutional: + ill appearing; not in distress Eyes: PERRL, conjunctivae normal, anicteric sclerae ENMT: external ear and nose normal, oropharynx normal Mouth: + dry oral mucous membranes Neck: trachea midline, no thyromegaly Respiratory: Auscultation: + diminished lung sounds (L side) Cardiovascular: Rate/Rhythm: regular rate and regular rhythm Gastrointestinal (Abdomen): normal bowel sounds, soft, nontender, no hepatosplenomegaly Skin: no rashes, warm and dry Neurologic: Speech / Cognition: normal speech and normal cognition Results & Data Vital Signs (Past 12 Hours) Vital Signs Temp Pulse Resp BP Pulse Ox O2 Del Method 08/25/22 07:53 36.3 C L 49 L 18 144/74 H 93 Room Air 08/25/22 04:21 37 C 79 18 111/62 89 L High Flow Nasal Cannula 08/24/22 23:46 36.7 C 73 16 114/57 L 97 High Flow Nasal Cannula Laboratory Results Laboratory Tests 08/25/22 08/25/22 08/25/22 04:35 07:38 07:38 WBC 10.89 H Hgb 9.8 L Hct 31.3 L Plt Count 204 VBG pH 7.44 H VBG pCO2 66 H VBG pO2 40 VBG HCO3 45 VBG O2 Saturation 68.9 Sodium 146 H Potassium 3.6 Chloride 100 Carbon Dioxide 39 H BUN 41 H Creatinine 1.26 H Glucose 66 L Diagnostic Findings 08/25/22 CXR: Interval development of complete opacification of the left lung with volume loss. This suggests left lung collapse, possibly due to mucous plugging. PG Care Time/CCT Total # of Minutes Spent Total Time Spent with Patient: Total time spent is greater than 50% in coordination of care (as documented) at patient's floor/unit and/or counseling patient: Coding Level of Care Code 25878 SUB INP/OBS CARE 3/50MIN Diagnoses Acute kidney injury superimposed on CKD N17.9; N18.9 Acute on chronic heart failure with preserved ejection fraction (HFpEF) I50.33 Pulmonary hypertension I27.20 Hypertension I10
[2022-08-25] MEDS ORDERED: LANTUS PER UNIT CHARGE SC SCH ×2 (09:00→21:00)
[2022-08-25] MEDS ORDERED: ACETAMINOPHEN 1,000 MG/100 ML VIAL IV PRN (09:19)
[2022-08-25] MEDS: BUMETANIDE 4 MG in SYRINGE 0 ML IV SCH (10:15)
[2022-08-25] MEDS: PIPERACILLIN/TAZOBACTAM 4.5 GM in DEXTROSE 5% 100 ML IV SCH ×3 (10:15→23:32)
[2022-08-25] MEDS: prednisoLONE acetate 1% OP SUSP 5 ML BTL OPR SCH ×4 (10:16→20:07)
[2022-08-25] MEDS: FLUOROMETHOLONE 0.1% OPR SCH ×2 (10:16→20:07)
[2022-08-25] MEDS: EYE OPR SCH ×2 (10:16→20:07)
[2022-08-25] MEDS: INSULIN ASPART PER UNIT CHARGE SC SCH ×4 (10:59→20:28)
[2022-08-25] MEDS: POLYETHYLENE (MIRALAX) 17 GM PACK PO SCH (11:02)
[2022-08-25] MEDS: POTASSIUM CITRATE 10 MEQ TAB PO SCH ×2 (11:02→20:06)
[2022-08-25] MEDS: allopurinoL 100 MG TAB PO SCH (11:02)
[2022-08-25] MEDS: dilTIAZem HCL 240 MG CAPCR PO SCH (11:02)
--- NOTE | 2022-08-25 12:01 | Pulmonary Consultation ---
Date of Consultation August 25, 2022 Assessment & Plan (1) Aspiration pneumonia: (2) Acute respiratory failure with hypoxia: (3) Weakness: Plan Agree with empiric Zosyn. Check MRSA screen. If positive, start coverage with IV vancomycin. Airway clearance therapy with percussive vest therapy 4 times a day, CoughAssist, hypertonic saline, Mucinex and DuoNebs. Avoid sedating medications. Patient poor candidate for bronchoscopy given supratherapeutic INR, atrial fibrillation and pulmonary hypertension. Follow-up chest x-ray tomorrow morning. Recommend PT due to severe weakness. Discussed with cardiology and hospitalist service. Thank you for allowing me to participate in the care of the patient. Please call with questions. History of Present Illness Reason for Consultation: Left lung opacification Attending Physician: Rae Hendrix DO History of Present Illness 77-year-old female with a past medical history for hypertension, hyperlipidemia, diabetes mellitus and atrial fibrillation presenting to the hospital due to shortness of breath with concerns of CHF. Pulmonary is now consulted due to evidence of left-sided opacification on chest x-ray. She is being treated for aspiration pneumonia. She was encephalopathic earlier this hospitalization. She has shortness of breath with minimal exertion. She is requiring low-flow oxygen. She is currently on Zosyn for antibiotic coverage. CT chest yesterday revealed tracheobronchial secretions and significant airspace opacities in the left perihilar and left lower lobe region consistent with pneumonia. Her INR is currently 5.1. She is on warfarin for A-fib. She is currently lethargic and dyspneic with minimal exertion. She denies any chest pain. at bedside. She does have a cough that is wet, but nonproductive. Allergies Allergy/AdvReac Type Severity Reaction Status Date / Time Sulfa (Sulfonamide Allergy Severe ANAPHYLAXIS Verified 08/19/22 00:43 Antibiotics) Home Medications Medication Instructions Recorded Confirmed Type aspirin 81 mg tablet,delayed 81 mg PO QPM ##0 10/19/18 08/19/22 History release (Michael Low Dose Aspirin) azelastine 205.5 mcg (0.15 %) 1 sprays intranasal DAILY PRN 10/22/18 08/19/22 History nasal spray ALLERGIES insulin regular human 100 unit/mL 6 - 8 unit subcut TIDM 11/27/19 08/19/22 History injection solution (Novolin R Regular U-100 Insulin) pravastatin 80 mg tablet 80 mg PO HS #90 tabs 06/05/21 08/19/22 Rx potassium citrate 10 mEq (1,080 1,080 mg PO BID #60 tabs 07/19/21 08/19/22 Rx mg) tablet,extended release insulin NPH isoph U-100 human 100 12 - 16 unit subcut QPM 07/27/21 08/19/22 History unit/mL subcutaneous suspension (Novolin N NPH U-100 Insulin isophane) metoprolol succinate 25 mg 25 mg PO HS #90 tabs 10/25/21 08/19/22 Rx tablet,extended release 24 hr allopurinol 100 mg tablet 100 mg PO DAILY #90 tabs 04/17/22 08/19/22 Rx ergocalciferol (vitamin D2) 1,250 50,000 unit PO MONTHLY #4 caps 04/17/22 08/19/22 Rx mcg (50,000 unit) capsule diltiazem HCl 60 mg tablet 60 mg PO HS #90 tabs 04/18/22 08/19/22 Rx metformin 500 mg tablet,extended 1,000 mg PO BID #360 tabs 06/12/22 08/19/22 Rx release 24 hr diltiazem HCl 240 mg capsule,24 240 mg PO QAM #90 caps 07/05/22 08/19/22 Rx hr,extended release (Tiazac) Wheelchair (Manual) #1 ea 07/12/22 07/30/22 Rx acetaminophen 325 mg capsule 650 mg PO QID PRN pain 07/16/22 08/19/22 History bumetanide 2 mg tablet 3 mg PO BID 08/19/22 08/19/22 History cetirizine 10 mg tablet 10 mg PO QAM PRN Allergy Symptoms 08/19/22 08/19/22 History levothyroxine 150 mcg tablet 150 mcg PO DAILYBB 08/19/22 08/19/22 History warfarin 2 mg tablet 1 mg PO 3XWK 08/19/22 08/19/22 History warfarin 2 mg tablet 2 mg PO 4XWK 08/19/22 08/19/22 History Patient History Medical History (Updated 08/25/22 @ 13:40 by Stew Stack MD) A-fib On Warfarin>FOLLOWED DR. BUCIO Aortic stenosis Atrial flutter Chronic diastolic congestive heart failure Colon polyps Coronary artery disease S/P CABG x 1 with AVR 2017. Diabetic peripheral neuropathy History of loop recorder Implanted AND REMOVED Hx of malignant melanoma of skin s/p simple excision Hyperlipemia Hypertension Hypothyroidism Obesity, morbid, BMI 40.0-49.9 Pulmonary hypertension Seasonal allergies Type 2 diabetes mellitus Vitamin D deficiency Weakness Surgical History (Updated 08/19/22 @ 17:52 by Joel Bucio MD) H/O aortic valve replacement 2017 [facility] - BOVINE ALSO HAD CABG X1 VESSEL H/O cardiac catheterization [facility] - PRIOR TO 2017 SURGERY History of carpal tunnel release of both wrists History of colonoscopy History of partial hysterectomy History of transesophageal echocardiography ([facility]) PRIOR TO SURGERY 2016 Hx of cyst of breast s/p excision Hx of right cataract extraction Hx of tonsillectomy S/P CABG (coronary artery bypass graft) Status post hernia repair (11/24/18) Umbilical hernia with multiple defects with surgimesh 11/24/18 Dr. Chapman [place] teeth removed Family History Mother Family history of diabetes mellitus Grandmother (Maternal) Family history of diabetes mellitus Grandmother (Paternal) Family history of diabetes mellitus Aunt Family history of diabetes mellitus Uncle Family history of diabetes mellitus Father FHx: colon cancer Other FHx: esophageal cancer FHx: heart disease No family history of adverse response to anesthesia Social History Smoking Status: Never smoker Second Hand Exposure: No; Do You Dip or Chew Tobacco: No; Hx Alcohol Use: No Hx Substance Use: No Preferred Language: Ug[place]an Communication Ability: Effective Visual Impairment: No Limitations Christmas Tree Grower Required: No Beliefs That Will Affect Care: None marital status: Current Living Situation: Spouse Feels Safe at Home: Yes caffeine: No Seatbelt Use: always Assistive Devices: Walker Review of Systems Review of Systems: All systems reviewed & are unremarkable except as noted in HPI & below Physical Exam Physical Exam: Constitutional: Obese appearing female in no significant distress. Lethargic. Eyes: Pupils are equal round and reactive to light. Conjunctivae are normal. Anicteric sclera. Ears nose, mouth and throat: Mallampati class 2. Normal posterior oropharynx. Uvula is midline. Neck: Trachea is midline. Visual inspection is normal. Respiratory: Diminished on the left with rhonchi. Mild tachypnea. Cardiovascular: Regular rate and rhythm. No murmurs. No edema. Gastrointestinal: Normal bowel sounds, soft, nontender and nondistended. No hepatosplenomegaly noted. Musculoskeletal: No cyanosis. Patient is able to move all extremities. Strength is 5 out of 5 in the upper and lower extremities. Skin: No rashes, warm dry and intact. Neurologic: No obvious focal neurological deficits seen. Psychiatric: Alert and oriented x3 with a euthymic affect. Results & Data Results & Data Vital Signs (Past 12 Hours) Vital Signs Temp Pulse Resp BP Pulse Ox O2 Del Method 08/25/22 07:53 36.3 C L 49 L 18 144/74 H 93 Room Air 08/25/22 04:21 37 C 79 18 111/62 89 L High Flow Nasal Cannula PG Care Time/CCT Total # of Minutes Spent Total Time Spent with Patient: Total time spent is greater than 50% in coordination of care (as documented) at patient's floor/unit and/or counseling patient: Coding Level of Care Code 56422 INT INP/OBS CARE 3/75MIN Diagnoses Aspiration pneumonia J69.0 Acute respiratory failure with hypoxia J96.01 Weakness R53.1
--- NOTE | 2022-08-25 14:31 | Pharmacy Report ---
Pharmacy Glycemic Short Note 2 - Date of Service August 25, 2022 - Glycemic Short BSG Results (Last 24 hours): 08/24/22 08/24/22 08/25/22 16:15 20:42 07:38 Glucose 66 L POC Glucose 103 H 127 H 08/25/22 08/25/22 07:39 11:49 Glucose POC Glucose 84 73 OUTPATIENT ANTIDIABETIC REGIMEN: * NPH Insulin 12-16 units QPM * Regular Insulin 6-8 units TIDM * Metformin ER 1000 mg PO BID * HbA1c = 7.1% on 08/18/22 ASSESSMENT: 08/25/22 * Blood sugars trending down. Patient received 40 units of Lantus + 11 units of Novolog yesterday. * Fasting of 84 mg/dL despite being on the same basal dose since 08/20. Will decrease Lantus dose significantly. * Lunch BSG also below goal, 73 mg/dL. Will also loosen CF/CR out of precaution. * Patient changed to NPO status. 08/24/22 * Blood sugars well controlled on current regime, no changes in insulin at this time. * Patient still requiring 7L O2/day, IV Zosyn. 08/22/22 * BSGs have been stable on current regimen. * Novolog parameters were loosened slightly yesterday d/t downward trend of BSGs throughout the day. * No further changes are indicated at this time. 08/19 * 77 y/o F admitted for CHF exacerbation last night. She has history of Type 2 diabetes managed on basal and bolus insulins and oral Metformin at home. * BSGs have been above 200 mg/dl consistently since last night despite patient receiving basal 15 units at HS yesterday. * Novolog was ordered based on stress of 2 last night. * Fasting BSG = 244 mg/dl today. Added 15 units of basal insulin again this AM but pre-lunch BSG still at 241 mg/dl. * Novolog parameters tightened with lunch and increased basal insulin BID starting at HS today. PLAN FOR INPATIENT GLYCEMIC CONTROL: * Hold outpatient diabetes medications * Basal insulin * Lantus 10 units this morning * Lantus 0-7-15 units SQ this evening * Reassess basal on 08/26 AM * Bolus insulin * NovoLog per scale ACHS or Q6hrs while NPO * Goal Range: Low 110 mg/dL - High 140 mg/dL * Correction Factor: 25 mg/dL/unit * Nutritional / Prandial insulin per carb ratio of 1 unit per 8 grams CHO consumed
--- NOTE | 2022-08-25 14:33 | Cardiology Progress Note ---
Date of Service August 25, 2022 Assessment & Plan (1) Acute on chronic heart failure with preserved ejection fraction (HFpEF): (2) Acute respiratory failure with hypoxia: (3) S/P aortic valve replacement with bioprosthetic valve: (4) Mitral regurgitation: (5) CAD in [place] artery: (6) Atrial flutter: (7) A-fib: (8) Hypertension: (9) S/P CABG (coronary artery bypass graft): Plan ASSESSMENT/PLAN: 1. Acute on chronic heart failure with preserved EF: Volume status continues to improve. Approaching euvolemia. Net negative fluid balance of 7.9 L for this hospital stay. Bumex has been held by nephrology after this morning's dose of 4 mg IV. She has received intermittent doses of Diuril throughout the hospital stay. Strict I's and O's. Daily weights. Can consider SGLT2 inhibitor in the future. 2. Acute respiratory failure with hypoxia: Oxygen supplementation requirement has declined. Has used BiPAP. Pleural effusions on chest x-rays. Noted to have findings suggestive of pneumonia/aspiration on CT imaging on 08/23/2022. Now has whiteout of the left lung on 08/25/2022 x-ray. Discussed with Dr. Stack of pulmonology who planned on evaluating. Mucous plugging noted on CT imaging on 08/23/2022. 3. CAD s/p CABG (ANDRADE to LAD): Intermittent chest discomfort in the setting of CHF exacerbation several days ago. No current chest pain. High-sensitivity troponin on slightly elevated on presentation, despite prolonged chest pain episodes, does not suggest acute coronary syndrome. Has not reported any further chest discomfort. Continue beta-wing and statin therapy. LBBB on initial ECG but bundle branch block also noted on outpatient echo in June. 4. Aortic valve replacement: Recent echo demonstrated appropriately functioning bioprosthetic aortic valve (06/29/2022). SBE prophylaxis for dental procedures. 5. Atrial flutter/fibrillation: Permanent. Continue beta-wing and diltiazem. Heart rate has improved with improved respiratory status. Continue anticoagulation for stroke risk reduction. INR was initially supratherapeutic, likely related to hepatic congestion. She has received vitamin K by hospitalist. INR was then subtherapeutic but once again supratherapeutic. Recommend holding warfarin while hospitalized and on antibiotics. Can use heparin drip when INR becomes subtherapeutic. Warfarin once again on hold. She has undergone left atrial appendage ablation with 35mm atrial clip. She has declined NOAC. 6. Hypertension: Normal blood pressure. No changes made. 7. Mitral regurgitation: Not fully interrogated on this hospitalized echo due to decompensation. Can be evaluated further in the future. Not likely plaing a role in current situation. 8. Leukocytosis and confusion: Confusion has significantly improved following antibiotic therapy for pneumonia. was ill a few days before she became ill and he still is having URI symptoms. 9. Disposition: Dr. Cortes will be covering for cardiology on 08/26/2022 and next week. Please call with any questions or concerns. Cardiology care will be passed to Dr. Cortes. Heart failure program referral. Patient care discussed with Dr. Alicea of nephrology and Dr. Stack of pulmonology. Admission and Anticipated Discharge Date Admission Date: August 19, 2022 Subjective Patient seen earlier this morning. She states that she has back pain. She feels short of breath, but was sleeping when I first entered the room and appeared to be breathing much easier than earlier this hospital stay. She denies syncope or palpitations. She was alone in her hospital room. Physical Exam Physical Exam: Gen.: No acute distress. Alert and oriented. HEENT: Anicteric sclera. Neck: No obvious JVD today. Thick neck. Cardiac: No ventricular heave. Irregularly irregular. Normal heart rate. Normal S1-S2. 1/6 early peaking systolic ejection murmur heard best at right upper sternal border. No rubs or gallops. Pulmonary: Decreased breath sounds throughout, specifically left more than right. Abdomen: Obese. Soft, nontender, nondistended, with normoactive bowel sounds. No bruits noted. Extremities: 2+ radial pulses bilaterally. Trace bilateral lower extremity edema to the knees. No cyanosis. Results & Data Vital Signs (Past 12 Hours) Vital Signs Temp Pulse Pulse Resp BP Pulse Ox O2 Del Method 08/25/22 12:17 88 19 115/70 93 Room Air 08/25/22 08:00 High Flow Nasal Cannula 08/25/22 08:00 70 08/25/22 07:53 36.3 C L 49 L 18 144/74 H 93 Room Air 08/25/22 04:21 37 C 79 18 111/62 89 L High Flow Nasal Cannula O2 Flow Rate 08/25/22 12:17 08/25/22 08:00 5 08/25/22 08:00 08/25/22 07:53 08/25/22 04:21 Intake & Output 08/23/22 08/24/22 08/25/22 08/26/22 06:59 06:59 06:59 06:59 Intake Total 650.000 / 031.276 5105.850 / 1506.850 700 / 700 1600 / 1600 Output Total 1675 / 1675 3800 / 3800 1999 / 1999 400 / 400 Balance -1025.000 / -1025.000 -2293.150 / -2293.150 -1300 / -1300 1200 / 1200 Weight 240 lb 11.916 oz 239 lb 13.807 oz 240 lb 5 oz Laboratory Results Laboratory Results - last 24 hr 08/24/22 08/24/22 08/25/22 16:15 20:42 04:35 WBC 10.89 H RBC 3.53 L Hgb 9.8 L Hct 31.3 L MCV 88.7 MCH 27.8 MCHC 31.3 L RDW Std Deviation 50.2 H RDW Coeff of [place] 15.8 H Plt Count 204 MPV 9.7 PT INR VBG pH VBG pCO2 VBG pO2 VBG HCO3 VBG O2 Saturation VBG Base Excess Sodium Potassium Chloride Carbon Dioxide Anion Gap BUN Creatinine Est Cr Clr Drug Dosing Est GFR ( Amer) Est GFR (Non-Af Amer) BUN/Creatinine Ratio Glucose POC Glucose 103 H 127 H Calcium Nasal Screen MRSA (PCR) 08/25/22 08/25/22 08/25/22 04:35 07:38 07:38 WBC RBC Hgb Hct MCV MCH MCHC RDW Std Deviation RDW Coeff of [place] Plt Count MPV PT 50.3 H INR 5.1 H VBG pH 7.44 H VBG pCO2 66 H VBG pO2 40 VBG HCO3 45 VBG O2 Saturation 68.9 VBG Base Excess 17.8 Sodium 146 H Potassium 3.6 Chloride 100 Carbon Dioxide 39 H Anion Gap 7 BUN 41 H Creatinine 1.26 H Est Cr Clr Drug Dosing 48.2 Est GFR ( Amer) 48.3 Est GFR (Non-Af Amer) 41.6 BUN/Creatinine Ratio 32.5 H Glucose 66 L POC Glucose Calcium 9.3 Nasal Screen MRSA (PCR) 08/25/22 08/25/22 08/25/22 07:39 11:49 14:00 WBC RBC Hgb Hct MCV MCH MCHC RDW Std Deviation RDW Coeff of [place] Plt Count MPV PT INR VBG pH VBG pCO2 VBG pO2 VBG HCO3 VBG O2 Saturation VBG Base Excess Sodium Potassium Chloride Carbon Dioxide Anion Gap BUN Creatinine Est Cr Clr Drug Dosing Est GFR ( Amer) Est GFR (Non-Af Amer) BUN/Creatinine Ratio Glucose POC Glucose 84 73 Calcium Nasal Screen MRSA (PCR) Pending Diagnostic Findings Telemetry personally reviewed: Remains in atrial fibrillation but heart rate further improved. No significant bradycardia. Labs reviewed and notable for stable renal function, normal potassium, leukocytosis and anemia. Nephrology, pulmonology notes reviewed. Chest x-ray image personally reviewed from 08/25/2022: Whiteout of the left lung. Radiology reports complete opacification of the left lung with volume loss. Medications Administered Current Inpatient Medications Albuterol (Albut/Ipratrop 3mg/0.5mg Neb 3 Ml Vial) 3 ml NEB Q4R CHETNA; Protocol Stop: 09/24/22 14:59 Allopurinol (Allopurinol 100 Mg Tab) 100 mg PO DAILY CHETNA Stop: 09/18/22 08:59 Last Admin: 08/25/22 11:02 Dose: Not Given Aspirin (Aspirin 81 Mg Ectab) 81 mg PO QPM CHETNA Stop: 09/18/22 20:59 Last Admin: 08/24/22 20:53 Dose: 81 mg Azelastine HCl (Azelastine Hcl 0.1% Nasal 200 Sprays/27,400 Mcg Btl) 1 sprays NA DAILY PRN PRN Reason: ALLERGIES Stop: 09/18/22 02:13 Cetirizine HCl (Cetirizine Hcl 10 Mg Tablet) 10 mg PO QAM PRN PRN Reason: Allergy Symptoms Stop: 09/18/22 01:59 Last Admin: 08/24/22 09:45 Dose: 10 mg Dextrose (Dextrose 50% 50 Ml Syringe) 25 - 50 ml IV UD PRN; Protocol PRN Reason: Hypoglycemia Protocol Stop: 09/18/22 01:59 Diltiazem HCl (Diltiazem Hcl 60 Mg Tab) 60 mg PO HS CHETNA Stop: 09/18/22 20:59 Last Admin: 08/24/22 20:53 Dose: 60 mg Diltiazem HCl (Diltiazem Hcl 240 Mg Capcr) 240 mg PO QAM [facility] Stop: 09/18/22 08:59 Last Admin: 08/25/22 11:02 Dose: Not Given Ergocalciferol (Ergocalciferol 50,000 Units 1250 Mcg Cap) 50,000 units PO Q30D CHETNA Stop: 09/29/22 08:59 Glucagon (Glucagon For Inj 1 Mg Vial) 1 mg SQ UD PRN; Protocol PRN Reason: Hypoglycemia Protocol Stop: 09/18/22 01:59 Glucose (Glucose 10 Tab/Tube) 4 - 8 tab PO UD PRN; Protocol PRN Reason: Hypoglycemia Treatment Stop: 09/18/22 01:59 Glucose (Glucose 40% Gel 15 Gm Tube) 15 - 30 gm PO UD PRN; Protocol PRN Reason: Hypoglycemia Protocol Stop: 09/18/22 01:59 Guaifenesin/Dextromethorphan (Guaifenesin/Dextrom Syrup 100mg/10mg 5ml Udc) 5 ml PO Q6H PRN PRN Reason: Cough Stop: 09/18/22 02:49 Last Admin: 08/24/22 20:51 Dose: 5 ml Piperacillin Sod/Tazobactam (Sod 4.5 gm/ Dextrose) 120 mls @ 30 mls/hr IV Q8H [facility]TNA; Protocol Stop: 08/30/22 15:59 Last Admin: 08/25/22 10:15 Dose: 30 mls/hr Acetaminophen (Ofirmev) 1,000 mg in 100 mls @ 400 mls/hr IV Q8H PRN PRN Reason: pain/fever Stop: 08/28/22 09:18 Last Infusion: 08/25/22 11:00 Dose: Infused Insulin Aspart (Insulin Aspart Per Unit Charge) 0 units SC ACHS [facility] Stop: 09/18/22 02:29 Last Admin: 08/25/22 13:09 Dose: Not Given Insulin Glargine (Lantus Per Unit Charge) 0 units SC HS [facility]; Protocol Stop: 08/25/22 23:59 Levothyroxine Sodium (Levothyroxine Sodium 150 Mcg Tablet) 150 mcg PO DAILYBB [facility] Stop: 09/18/22 06:29 Last Admin: 08/25/22 05:38 Dose: 150 mcg Metoprolol Succinate (Metoprolol Succ 25mg Ext Rel Tab) 25 mg PO HS [facility] Stop: 09/18/22 20:59 Last Admin: 08/24/22 20:53 Dose: 25 mg Miscellaneous (Carbohydrates For Hypoglycemia ) 15 - 30 gm PO UD PRN PRN Reason: Hypoglycemia Protocol Stop: 09/18/22 01:59 Miscellaneous Information (Pharmacy Glycemic Mgmt Consult) 1 each N/A UD PRN PRN Reason: Consult Stop: 09/18/22 01:59 Fluorometholone 0.1% Eye Drops - Non- Formulary Patient's Own Med 1 each OPR BID [facility] Stop: 09/21/22 20:59 Last Admin: 08/25/22 10:16 Dose: 1 drops Ondansetron HCl (Ondansetron Inj 2 Mg/Ml 2 Ml Vial) 4 mg IV Q4H PRN PRN Reason: Nausea Stop: 09/18/22 09:30 Polyethylene Glycol (Polyethylene (Miralax) 17 Gm Pack) 17 gm PO DAILY [facility] Stop: 09/23/22 08:59 Last Admin: 08/25/22 11:02 Dose: Not Given Potassium Citrate (Potassium Citrate 10 Meq Tab) 10 meq PO BID [facility] Stop: 09/18/22 08:59 Last Admin: 08/25/22 11:02 Dose: Not Given Pravastatin Sodium (Pravastatin Sod 40 Mg Tab) 80 mg PO HS [facility] Stop: 09/18/22 20:59 Last Admin: 08/24/22 20:53 Dose: 80 mg Prednisolone Acetate (Prednisolone Acetate 1% Op Susp 5 Ml Btl) 1 drops OPR QID [facility] Stop: 09/21/22 15:40 Last Admin: 08/25/22 13:51 Dose: 1 drops Sodium Chloride (Sodium Chlor 7% 4 Ml Neb) 4 ml NEB BIDR [facility] Stop: 09/24/22 18:59 Warfarin Sodium (Warfarin Sod 1 Mg Tab) 1 mg PO [id number] [facility] Stop: 09/21/22 15:59 Last Admin: 08/22/22 16:55 Dose: 1 mg Warfarin Sodium (Warfarin Sod 2 Mg Tab) 2 mg PO [id number] [facility] Stop: 09/20/22 15:59 Last Admin: 08/23/22 16:19 Dose: 2 mg PG Care Time/CCT Total # of Minutes Spent Total Time Spent with Patient: Total time spent is greater than 50% in coordination of care (as documented) at patient's floor/unit and/or counseling patient: Coding Level of Care Code 82828 SUB INP/OBS CARE 3/50MIN Diagnoses Acute on chronic heart failure with preserved ejection fraction (HFpEF) I50.33 Acute respiratory failure with hypoxia J96.01 S/P aortic valve replacement with bioprosthetic valve Z95.3 Mitral regurgitation I34.0 Cardiac valve disease etiology: etiology unspecified CAD in [place] artery I25.10 Atrial flutter I48.92 A-fib I48.2 Atrial fibrillation type: permanent Hypertension I10 S/P CABG (coronary artery bypass graft) Z95.1 (4) Mitral regurgitation Cardiac valve disease etiology: etiology unspecified Qualified Code(s): I34.0 - Nonrheumatic mitral (valve) insufficiency (7) A-fib Atrial fibrillation type: permanent Qualified Code(s): I48.2 - Chronic atrial fibrillation
[2022-08-25] MEDS: ALBUT/IPRATROP 3MG/0.5MG NEB 3 ML VIAL NEB SCH ×3 (15:28→22:11)
[2022-08-25] MEDS ORDERED: BUMETANIDE 2 MG in SYRINGE 0 ML IV SCH (17:00)
[2022-08-25] MEDS: SODIUM CHLOR 7% 4 ML NEB NEB SCH (19:06)
[2022-08-25] MEDS: PRAVASTATIN SOD 40 MG TAB PO SCH (20:06)
[2022-08-25] MEDS: METOPROLOL SUCC 25MG EXT REL TAB PO SCH (20:06)
[2022-08-25] MEDS: dilTIAZem HCl 60 MG TAB PO SCH (20:06)
[2022-08-25] MEDS: ASPIRIN 81 MG ECTAB PO SCH (20:06)
[2022-08-25] MEDS: guaiFENesin/DEXTROM SYRUP 100MG/10MG 5ML UDC PO PRN (20:07)
[2022-08-26] MEDS: ALBUT/IPRATROP 3MG/0.5MG NEB 3 ML VIAL NEB SCH ×6 (02:12→22:14)
[2022-08-26] MEDS: LEVOTHYROXINE SODIUM 150 MCG TABLET PO SCH (05:03)
[2022-08-26 05:18] LABS: Hematocrit (blood only) 29.7 % (37.0-47.0); Hemoglobin 9.4 g/dl (12.0-16.0); Mean Corpuscular Hemoglobin 28.1 pg (25.0-34.0); Mean Corpuscular Hgb Conc 31.6 g/dL (32.0-36.0); Mean Corpuscular Volume 88.7 fL (80.0-100.0); Mean Platelet Volume 9.6 fL (9.4-12.4); Platelet Count 181 K/uL (130-400); RDW Coefficient of Variation 15.9 % (11.5-14.5); RDW Standard Deviation 50.6 fL (36.4-46.3); Red Blood Count 3.35 M/uL (4.20-5.40); White Blood Count 11.06 K/ul (4.8-10.8)
[2022-08-26 05:35] LABS: BUN Creatinine Ratio 23.6 (10-20); Creatinine Clr Calc Pharmacy 43.4 ml/min; Est GFR (African American) 42.5 ml/min; Est GFR (Non-African American) 36.7 ml/min; Potassium 3.7 mmol/L (3.5-5.1)
[2022-08-26 06:07] LABS: Prothrombin Time 59.6 Seconds (9.0-12.0)
--- NOTE | 2022-08-26 06:13 | Electrocardiogram Report ---
Test Reason : Blood Pressure : / mmHG Vent. Rate : 078 BPM Atrial Rate : 111 BPM P-R Int : 000 ms QRS Dur : 174 ms QT Int : 476 ms P-R-T Axes : 000 -49 125 degrees QTc Int : 542 ms Atrial fibrillation Left axis deviation Left bundle branch block Abnormal ECG When compared with ECG of 20-AUG-2022 05:17, No significant change Confirmed by Joel Miller ([id number]) on 08/26/2022 6:12:59 AM Referred By: REFERRED SELF Confirmed By:Joel Miller
[2022-08-26 06:19] LABS: INR 6.1 (0.9-1.1)
[2022-08-26] MEDS: SODIUM CHLOR 7% 4 ML NEB NEB SCH ×2 (07:01→19:25)
--- NOTE | 2022-08-26 08:32 | Nephrology Progress Note ---
Date of Service August 26, 2022 Assessment & Plan (1) Acute kidney injury superimposed on CKD: Plan: * ERIN resolved * Baseline Cr ~ 1.0 (2) Acute on chronic heart failure with preserved ejection fraction (HFpEF): Plan: * Clinically euvolemic to volume contracted (dry MM, no peripheral edema) * Continue to hold Bumex. Encourage oral hydration. Monitor UO, PRP, serum bicarbonate * CXR films reviewed this am. Radiology report is pending. To my exam, L lung is reexpanded. No significant CHF (3) Anemia: Plan: * Progressive anemia likely related to hospital lab draws * Will order iron studies (4) Pulmonary hypertension: Plan: * Clinical improvement with diuresis (5) Hypertension: Plan: * BP acceptable. Remains rate controlled Afib with metoprolol and diltiazem Admission and Anticipated Discharge Date Admission Date: August 19, 2022 Subjective Mrs. Bernabe was evaluated in her hospital room this morning. She is much more alert. She reports that her breathing is subjectively improved after using the percussion vest yesterday Review of Systems Constitutional: + weakness; no fever Eyes: no problem reported Ear, Nose, Mouth, Throat: no problem reported Respiratory: no dyspnea Cardiovascular: no chest pain Gastrointestinal: no nausea, no vomiting and no diarrhea/loose stools Physical Exam Constitutional: not in distress Eyes: PERRL, conjunctivae normal, anicteric sclerae ENMT: external ear and nose normal, oropharynx normal Mouth: + dry oral mucous membranes Neck: trachea midline, no thyromegaly Respiratory: Auscultation: lungs clear to auscultation bilaterally Cardiovascular: Rate/Rhythm: regular rate and regular rhythm Gastrointestinal (Abdomen): normal bowel sounds, soft, nontender, no hepatos plenomegaly Skin: no rashes, warm and dry Neurologic: Speech / Cognition: normal speech and normal cognition Results & Data Vital Signs (Past 12 Hours) Vital Signs Temp Pulse Pulse Pulse Resp BP Pulse Ox 08/26/22 08:17 36.6 C 81 18 147/77 H 95 08/26/22 08:00 86 08/26/22 07:01 74 18 89 L 08/25/22 21:00 08/26/22 03:00 36.7 C 77 21 138/86 92 08/26/22 02:12 72 20 90 08/25/22 23:00 36.7 C 77 24 127/62 94 08/26/22 00:16 77 08/25/22 22:12 79 18 89 L O2 Del Method O2 Flow Rate 08/26/22 08:17 Nasal Cannula 08/26/22 08:00 08/26/22 07:01 Room Air 08/25/22 21:00 Nasal Cannula 3 08/26/22 03:00 Nasal Cannula 4 08/26/22 02:12 Room Air 08/25/22 23:00 Nasal Cannula 4 08/26/22 00:16 08/25/22 22:12 Room Air Laboratory Results Laboratory Tests 08/26/22 08/26/22 04:59 04:59 WBC 11.06 H Hgb 9.4 L Hct 29.7 L Plt Count 181 Sodium 143 Potassium 3.7 Chloride 97 L Carbon Dioxide 39 H BUN 33 H Creatinine 1.40 H Glucose 93 Calcium 9.0 Diagnostic Findings CXR film to my exam this morning show reexpansion of the L lung. Radiology report is pending. PG Care Time/CCT Total # of Minutes Spent Total Time Spent with Patient: Total time spent is greater than 50% in coordination of care (as documented) at patient's floor/unit and/or counseling patient: Coding Level of Care Code 57530 SUB INP/OBS CARE 350MIN Diagnoses Acute kidney injury superimposed on CKD N17.9; N18.9 Acute on chronic heart failure with preserved ejection fraction (HFpEF) I50.33 Anemia D64.9 Anemia type: unspecified type Pulmonary hypertension I27.20 Hypertension I10 (3) Anemia Anemia type: unspecified type Qualified Code(s): D64.9 - Anemia, unspecified
--- NOTE | 2022-08-26 08:41 | Hospitalist Progress Note ---
Date of Service August 26, 2022 Assessment & Plan (1) Acute respiratory failure with hypoxia: Plan: 2/2 HFpEF exacerbation and aspiration pneumonia, also suspect some element of OHS Taken off of BIPAP continuous on 08/21 due to clinical improvement, continue to wean oxygen as tolerated Continue CHF treatment and PNA tx Pulmonology consulted 08/25, for CXR with opacification of left lung field and mucus plugging; poor candidate for bronchoscopy, trialed percussive vest therapy 4 times daily, CoughAssist, hypertonic saline, Mucinex and DuoNebs Repeat CXR with significant improvement improvement in aeration of left lung (2) Aspiration pneumonia: Plan: CXR 08/22 with bibasilar airspace opacities could represent scarring/atelectasis, a component of pulmonary edema, and/or a superimposed pneumonitis CT Chest shows left perihilar with left greater than right mid to lower lung zone predominant airspace opacities suggestive of pneumonia/aspiration CXR 08/25 with left lung opacification and mucus plugging MRSA nares negative Continue Zosyn for aspiration pneumonia (08/30 is antibiotic end date), WBC count stable (3) Acute on chronic heart failure with preserved ejection fraction (HFpEF): Plan: Patient presented with SOB and AHRF requiring BIPAP, with evidence of pulmonary edema and bibasilar consolidations on CXR BNP elevated at 318, and patient with increased weight and leg swelling Was on Bumex 4mg IV BID, held as suspect patient has reached dry weight, resume home regimen when able Overall net negative this admission, weight 121kg->109 kg TTE did not show any depressed EF, suspect HFpEF Cardiology and Nephrology consulted and appreciate recommendations Continue beta-wing and statin. Ischemic etiology can be reassessed when volume status improves (4) Acute metabolic encephalopathy: Plan: In the setting of hypoxic hypercapnic respiratory failure, CHF exacerbation, aspiration PNA Element of delirium in the acutely ill elderly patient also suspected, delirium precautions Patient is much more alert today compared to earlier in admission (5) A-fib: Plan: Continue beta-wing and diltiazem INR was initially supratherapeutic >9.5 and reversed with vitamin K INR supratherapeutic at 6.1 today, continue to hold warfarin with repeat INR tomorrow, will need to see if DOAC would be covered by patient's insurance, patient is amenable to trial of medication if covered (6) Uncontrolled type 2 diabetes mellitus with neurologic complication, with long-term current use of insulin: Plan: Continue basal/bolus insulin (7) S/P aortic valve replacement with bioprosthetic valve: Plan: Appropriately functioning bioprosthetic aortic valve (8) Anemia: Plan: In the setting of intermittent hematuria while on concurrent heparin/warfarin therapy earlier this admission, also with ecchymosis to left arm from previous IV sites Hgb baseline 10-12, Hgb 9.4 today which is stable for the last couple of days, continue to monitor Also has iron studies ordered for the morning Plan Patient's symptoms are clinically improving, PT and OT consulted and recommend rehab on discharge to maximize return of function and safety. We will ask case management to assist in this process, as patient continues to approach medical stability. Anticipate will be here for another 24 to 48 hours to continue to monitor clinical improvement. Cardiology, pulmonology, and nephrology consults appreciated Admission and Anticipated Discharge Date Admission Date: August 19, 2022 Subjective Patient without any acute events overnight. Today feels that her breathing is much better, feels more alert today feels more herself. Denies any chest pain or abdominal pains. Notes that she has a lot of bruising on her left medial arm. Review of Systems Review of Systems: All systems reviewed & are unremarkable except as noted in Subjective Physical Exam Constitutional: WD/WN, vitals as above Respiratory: normal respiratory effort, saturating well on 2 L nasal cannula, some rhonchi noted in lower left lung field Cardiovascular: HR irregularly irregular, no murmurs, 1+ bilateral pitting edema Gastrointestinal (Abdomen): normal bowel sounds, soft, nontender, no hepatosplenomegaly Skin: no rashes, warm and dry Psychiatric: Alert, oriented to self Results & Data Results & Data Vital Signs (Past 12 Hours) Vital Signs Temp Pulse Pulse Pulse Resp BP Pulse Ox 08/26/22 08:17 36.6 C 81 18 147/77 H 95 08/26/22 08:00 86 08/26/22 07:01 74 18 89 L 08/25/22 21:00 08/26/22 03:00 36.7 C 77 21 138/86 92 08/26/22 02:12 72 20 90 08/25/22 23:00 36.7 C 77 24 127/62 94 08/26/22 00:16 77 08/25/22 22:12 79 18 89 L O2 Del Method O2 Flow Rate 08/26/22 08:17 Nasal Cannula 08/26/22 08:00 08/26/22 07:01 Room Air 08/25/22 21:00 Nasal Cannula 3 08/26/22 03:00 Nasal Cannula 4 08/26/22 02:12 Room Air 08/25/22 23:00 Nasal Cannula 4 08/26/22 00:16 08/25/22 22:12 Room Air PG Care Time/CCT Total # of Minutes Spent Total Time Spent with Patient: Total time spent is greater than 50% in coordination of care (as documented) at patient's floor/unit and/or counseling patient: Coding Level of Care Code 32950 SUB INP/OBS CARE 3/50MIN Diagnoses Acute respiratory failure with hypoxia J96.01 Aspiration pneumonia J69.0 Acute on chronic heart failure with preserved ejection fraction (HFpEF) I50.33 Acute metabolic encephalopathy G93.41 A-fib I48.2 Atrial fibrillation type: permanent Uncontrolled type 2 diabetes mellitus with neurologic complication, with long- term current use of insulin E11.49; E11.65; Z79.4 S/P aortic valve replacement with bioprosthetic valve Z95.3 Anemia D64.9 Anemia type: unspecified type (5) A-fib Atrial fibrillation type: permanent Qualified Code(s): I48.2 - Chronic atrial fibrillation (8) Anemia Anemia type: unspecified type Qualified Code(s): D64.9 - Anemia, unspecified
[2022-08-26] MEDS: INSULIN ASPART PER UNIT CHARGE SC SCH ×4 (08:51→21:25)
[2022-08-26] MEDS: prednisoLONE acetate 1% OP SUSP 5 ML BTL OPR SCH ×4 (08:52→21:27)
[2022-08-26] MEDS: POTASSIUM CITRATE 10 MEQ TAB PO SCH ×2 (08:52→21:26)
[2022-08-26] MEDS: CETIRIZINE HCL 10 MG TABLET PO PRN (08:52)
[2022-08-26] MEDS: dilTIAZem HCL 240 MG CAPCR PO SCH (08:53)
[2022-08-26] MEDS: FLUOROMETHOLONE 0.1% OPR SCH ×2 (08:53→21:26)
[2022-08-26] MEDS: EYE OPR SCH ×2 (08:53→21:26)
[2022-08-26] MEDS: allopurinoL 100 MG TAB PO SCH (08:53)
[2022-08-26] MEDS: POLYETHYLENE (MIRALAX) 17 GM PACK PO SCH (08:54)
[2022-08-26] MEDS ORDERED: LANTUS PER UNIT CHARGE SC SCH (09:00)
[2022-08-26] MEDS: PIPERACILLIN/TAZOBACTAM 4.5 GM in DEXTROSE 5% 100 ML IV SCH ×2 (09:11→15:57)
--- NOTE | 2022-08-26 09:56 | Cardiology Progress Note ---
Date of Service August 26, 2022 Assessment & Plan (1) Acute on chronic heart failure with preserved ejection fraction (HFpEF): (2) Acute respiratory failure with hypoxia: (3) S/P aortic valve replacement with bioprosthetic valve: (4) Mitral regurgitation: (5) CAD in [place] artery: (6) Atrial flutter: (7) A-fib: (8) Hypertension: (9) S/P CABG (coronary artery bypass graft): Plan ASSESSMENT/PLAN: 1. Acute on chronic heart failure with preserved EF: Diuretics were held yesterday. Her volume status seems quite good. Minimal edema. Renal function improved slightly today. At this point I would favor resumption of her usual outpatient oral diuretic regimen. SGLT 2 inhibitor can be added as her clinical condition improves. 2. Acute respiratory failure with hypoxia: She continues to have an element of hypoxia. Currently undergoing treatment for presumed mucus plugging involving the left lung. 3. CAD s/p CABG (ANDRADE to LAD): No current chest pain. No suggestion of an acute coronary syndrome. Will continue secondary prevention. 4. Aortic valve replacement: Recent echo demonstrated appropriately functioning bioprosthetic aortic valve (06/29/2022). Not playing a role in her current decompensation. SBE prophylaxis for dental procedures. 5. Atrial flutter/fibrillation: Permanent. adequate rate control. Supratherapeutic INR. 6. Hypertension: Continuing diltiazem and metoprolol 7. Mitral regurgitation: Believed to be mild. 8. Leukocytosis and confusion: Confusion has significantly improved following antibiotic therapy for pneumonia. was ill a few days before she became ill and he still is having URI symptoms. Admission and Anticipated Discharge Date Admission Date: August 19, 2022 Subjective This morning the patient reported feeling quite poorly. She has a lot of diffuse myalgias. She continues to have breathing difficulty even at rest. She denied any chest pain or sense of palpitation. She has been up in a chair did not endorse symptoms of dizziness or lightheadedness. Review of Systems Review of Systems: Per HPI. She has also been worried about some confusion and forgetfulness primarily during the early parts of her admission. Physical Exam Physical Exam: Gen.: No acute distress. Alert and oriented. HEENT: Anicteric sclera. Cardiac: No ventricular heave. Irregularly irregular. Normal heart rate. Normal S1-S2. 1/6 early peaking systolic ejection murmur heard best at right upper sternal border. No rubs or gallops. Pulmonary: Decreased breath sounds throughout, specifically left more than right. expiratory wheezing noted Abdomen: Obese. Extremities: 2+ radial pulses bilaterally. minimal lower extremity edema. Trophic changes noted. Results & Data Vital Signs (Past 12 Hours) Vital Signs Temp Pulse Pulse Pulse Resp BP Pulse Ox 08/26/22 08:17 36.6 C 81 18 147/77 H 95 08/26/22 08:00 86 08/26/22 07:01 74 18 89 L 08/26/22 03:00 36.7 C 77 21 138/86 92 08/26/22 02:12 72 20 90 08/25/22 23:00 36.7 C 77 24 127/62 94 08/26/22 00:16 77 08/25/22 22:12 79 18 89 L O2 Del Method O2 Flow Rate 08/26/22 08:17 Nasal Cannula 08/26/22 08:00 08/26/22 07:01 Room Air 08/26/22 03:00 Nasal Cannula 4 08/26/22 02:12 Room Air 08/25/22 23:00 Nasal Cannula 4 08/26/22 00:16 08/25/22 22:12 Room Air Laboratory Results Abnormal Lab Results 08/25/22 08/25/22 08/25/22 11:49 14:00 17:24 WBC RBC Hgb Hct MCV MCH MCHC RDW Std Deviation RDW Coeff of [place] Plt Count MPV PT INR Sodium Potassium Chloride Carbon Dioxide Anion Gap BUN Creatinine Est Cr Clr Drug Dosing Est GFR ( Amer) Est GFR (Non-Af Amer) BUN/Creatinine Ratio Glucose POC Glucose 73 203 H Calcium Nasal Screen MRSA (PCR) Negative 08/25/22 08/26/22 08/26/22 20:22 04:59 04:59 WBC RBC Hgb Hct MCV MCH MCHC RDW Std Deviation RDW Coeff of [place] Plt Count MPV PT 59.6 H INR 6.1 H* Sodium 143 Potassium 3.7 Chloride 97 L Carbon Dioxide 39 H Anion Gap 7 BUN 33 H Creatinine 1.40 H Est Cr Clr Drug Dosing 43.4 Est GFR ( Amer) 42.5 Est GFR (Non-Af Amer) 36.7 BUN/Creatinine Ratio 23.6 H Glucose 93 POC Glucose 144 H Calcium 9.0 Nasal Screen MRSA (PCR) 08/26/22 08/26/22 04:59 08:23 WBC 11.06 H RBC 3.35 L Hgb 9.4 L Hct 29.7 L MCV 88.7 MCH 28.1 MCHC 31.6 L RDW Std Deviation 50.6 H RDW Coeff of [place] 15.9 H Plt Count 181 MPV 9.6 PT INR Sodium Potassium Chloride Carbon Dioxide Anion Gap BUN Creatinine Est Cr Clr Drug Dosing Est GFR ( Amer) Est GFR (Non-Af Amer) BUN/Creatinine Ratio Glucose POC Glucose 120 H Calcium Nasal Screen MRSA (PCR) Diagnostic Findings Echocardiogram 08/19/2022: Normal LV systolic function with ejection fraction 55-60%. Mild LVH. Bioprosthetic aortic valve. Mild mitral regurgitation. Echocardiogram 06/29/2022: Normal LV systolic function with ejection fraction of 50-55%. Mild LVH. Severe left atrial dilation. Bioprosthetic aortic valve with acceptable transvalvular gradient. Moderate MAC. PG Care Time/CCT Total # of Minutes Spent Total Time Spent with Patient: Total time spent is greater than 50% in coordination of care (as documented) at patient's floor/unit and/or counseling patient: Coding Level of Care Code 26486 SUB INP/OBS CARE 2/35MIN Diagnoses Acute on chronic heart failure with preserved ejection fraction (HFpEF) I50.33 Acute respiratory failure with hypoxia J96.01 S/P aortic valve replacement with bioprosthetic valve Z95.3 Mitral regurgitation I34.0 Cardiac valve disease etiology: etiology unspecified CAD in [place] artery I25.10 Atrial flutter I48.92 A-fib I48.2 Atrial fibrillation type: permanent Hypertension I10 S/P CABG (coronary artery bypass graft) Z95.1 (4) Mitral regurgitation Cardiac valve disease etiology: etiology unspecified Qualified Code(s): I34.0 - Nonrheumatic mitral (valve) insufficiency (7) A-fib Atrial fibrillation type: permanent Qualified Code(s): I48.2 - Chronic atrial fibrillation
--- NOTE | 2022-08-26 13:01 | XRay Report ---
XR chest 1V portable CLINICAL HISTORY: Left lung pneumonia TECHNIQUE: Single frontal radiograph of the chest was obtained. Comparison: Comparison is made to chest radiograph 08/25/2022 FINDINGS: Median sternotomy wires are unchanged. Cardiomegaly is noted. The aortic arch is calcified. Left retr ocardiac opacity has improved from prior exam. There is a small left pleural effusion. IMPRESSION: Left retrocardiac opacity airspace opacity compatible with atelectasis versus pneumonia. Small left p leural effusion is decreased from prior exam. ACT 112: Negative or not required by law. Electronically signed by: Pawan Liu M.D. 08/26/2022 12:59 PM
--- NOTE | 2022-08-26 14:04 | Pulmonology Progress Note ---
Date of Service August 26, 2022 Assessment & Plan (1) Aspiration pneumonia: (2) Acute respiratory failure with hypoxia: (3) Weakness: Plan Agree with empiric Zosyn. MRSA screen negative. Airway clearance therapy with percussive vest therapy 4 times a day, CoughAssist, hypertonic saline, Mucinex and DuoNebs. Avoid sedating medications. Patient poor candidate for bronchoscopy given supratherapeutic INR, atrial fibrillation and pulmonary hypertension. Follow-up chest x-ray with profound improvement in aeration of the left lung secondary to pulmonary clearance therapies. Continue PT due to severe weakness. Thank you for allowing me to participate in the care of the patient. Please call with questions. Admission and Anticipated Discharge Date Admission Date: August 19, 2022 Subjective Patient notes improvement in her shortness of breath and cough. She was able to cough up a large amount of phlegm yesterday after initiation of percussive vest, hypertonic and CoughAssist therapies. She notes that she is able to sit up in a chair today. She is feeling overall stronger. Denies any chest pain. No fevers or chills. Review of Systems Review of Systems: All systems reviewed & are unremarkable except as noted in HPI & below Physical Exam Physical Exam: Constitutional: Obese appearing female in no significant distress. Lethargic. Eyes: Pupils are equal round and reactive to light. Conjunctivae are normal. Anicteric sclera. Ears nose, mouth and throat: Mallampati class 2. Normal posterior oropharynx. Uvula is midline. Neck: Trachea is midline. Visual inspection is normal. Respiratory: Diminished on the left with rhonchi. No increased work of breathing. Cardiovascular: Regular rate and rhythm. No murmurs. No edema. Gastrointestinal: Normal bowel sounds, soft, nontender and nondistended. No hepatosplenomegaly noted. Musculoskeletal: No cyanosis. Patient is able to move all extremities. Strength is 5 out of 5 in the upper and lower extremities. Skin: No rashes, warm dry and intact. Neurologic: No obvious focal neurological deficits seen. Psychiatric: Alert and oriented x3 with a euthymic affect. Results & Data Results & Data Vital Signs (Past 12 Hours) Vital Signs Temp Pulse Pulse Pulse Resp BP Pulse Ox 08/26/22 11:50 37.1 C 89 19 134/61 95 08/26/22 11:13 99 H 18 92 08/26/22 08:00 06/11/23 08:17 36.6 C 81 18 147/77 H 95 08/26/22 08:00 86 08/26/22 07:01 74 18 89 L 08/26/22 03:00 36.7 C 77 21 138/86 92 08/26/22 02:12 72 20 90 O2 Del Method O2 Flow Rate 08/26/22 11:50 Nasal Cannula 08/26/22 11:13 Room Air 08/26/22 08:00 Room Air 08/26/22 08:17 Nasal Cannula 08/26/22 08:00 08/26/22 07:01 Room Air 08/26/22 03:00 Nasal Cannula 4 08/26/22 02:12 Room Air PG Care Time/CCT Total # of Minutes Spent Total Time Spent with Patient: Total time spent is greater than 50% in coordination of care (as documented) at patient's floor/unit and/or counseling patient: Coding Level of Care Code 27988 SUB INP/OBS CARE 2/35MIN Diagnoses Aspiration pneumonia J69.0 Acute respiratory failure with hypoxia J96.01 Weakness R53.1
[2022-08-26] MEDS: dilTIAZem HCl 60 MG TAB PO SCH (21:25)
[2022-08-26] MEDS: ASPIRIN 81 MG ECTAB PO SCH (21:25)
[2022-08-26] MEDS: METOPROLOL SUCC 25MG EXT REL TAB PO SCH (21:26)
[2022-08-26] MEDS: LANTUS PER UNIT CHARGE SC SCH (21:26)
[2022-08-26] MEDS: PRAVASTATIN SOD 40 MG TAB PO SCH (21:27)
[2022-08-26] MEDS: guaiFENesin/DEXTROM SYRUP 100MG/10MG 5ML UDC PO PRN (21:27)
[2022-08-27] MEDS: PIPERACILLIN/TAZOBACTAM 4.5 GM in DEXTROSE 5% 100 ML IV SCH ×2 (00:54→08:51)
[2022-08-27] MEDS: ALBUT/IPRATROP 3MG/0.5MG NEB 3 ML VIAL NEB SCH ×6 (02:08→23:20)
[2022-08-27] MEDS: LEVOTHYROXINE SODIUM 150 MCG TABLET PO SCH (05:50)
[2022-08-27 06:10] LABS: Hemoglobin 9.8 g/dl (12.0-16.0); Mean Corpuscular Hemoglobin 27.8 pg (25.0-34.0); Mean Corpuscular Hgb Conc 31.6 g/dL (32.0-36.0); Mean Corpuscular Volume 87.8 fL (80.0-100.0); Mean Platelet Volume 10.4 fL (9.4-12.4); Platelet Count 167 K/uL (130-400); RDW Coefficient of Variation 16.4 % (11.5-14.5); RDW Standard Deviation 51.6 fL (36.4-46.3); Red Blood Count 3.53 M/uL (4.20-5.40)
[2022-08-27 06:29] LABS: BUN Creatinine Ratio 16.7 (10-20); Calcium 9.1 mg/dl (8.6-10.3); Creatinine Clr Calc Pharmacy 36.2 ml/min; Est GFR (African American) 34.1 ml/min; Est GFR (Non-African American) 29.4 ml/min; Potassium 3.8 mmol/L (3.5-5.1)
[2022-08-27 06:43] LABS: INR 4.3 (0.9-1.1); Prothrombin Time 42.9 Seconds (9.0-12.0)
[2022-08-27 06:50] LABS: Ferritin 84.4 ng/ml (8-388)
[2022-08-27] MEDS: SODIUM CHLOR 7% 4 ML NEB NEB SCH ×2 (07:05→19:17)
[2022-08-27] MEDS: INSULIN ASPART PER UNIT CHARGE SC SCH ×4 (08:51→20:40)
[2022-08-27] MEDS: LANTUS PER UNIT CHARGE SC SCH ×2 (08:51→20:41)
[2022-08-27] MEDS: prednisoLONE acetate 1% OP SUSP 5 ML BTL OPR SCH ×4 (08:53→20:39)
[2022-08-27] MEDS: FLUOROMETHOLONE 0.1% OPR SCH ×2 (08:53→20:40)
[2022-08-27] MEDS: EYE OPR SCH ×2 (08:53→20:40)
[2022-08-27] MEDS: POLYETHYLENE (MIRALAX) 17 GM PACK PO SCH (08:55)
[2022-08-27] MEDS: POTASSIUM CITRATE 10 MEQ TAB PO SCH ×2 (08:56→20:38)
[2022-08-27] MEDS: dilTIAZem HCL 240 MG CAPCR PO SCH (08:56)
[2022-08-27] MEDS: allopurinoL 100 MG TAB PO SCH (08:56)
--- NOTE | 2022-08-27 08:58 | Pulmonology Progress Note ---
Date of Service August 27, 2022 Assessment & Plan (1) Aspiration pneumonia: (2) Acute respiratory failure with hypoxia: (3) Weakness: Plan Impression: 77-year-old female with atelectasis of the left lung resolved with pulmonary toilet. She is on antibiotics for potential pneumonia. Recommendations: 1. Atelectasis of the left lung: Resolved. Continue aggressive pulmonary toile t with flutter valve, percussive vest, and out of bed to chair as tolerated. 2. Hypoxemia: Resolved. Two-step oxygen evaluation prior to discharge. 3. Questionable pneumonia: The patient is currently day #4 of Zosyn. No culture data. Her white count is elevated but she been afebrile with a normal procalcitonin. Can de-escalate to oral Ceftin to complete an additional 3 days of antimicrobial therapy 4. Continue PT and OT. Disposition per therapy. Follow-up chest x-ray in 2 to 4 weeks with primary care recommended. Admission and Anticipated Discharge Date Admission Date: August 19, 2022 Subjective Patient seen and examined. EMR reviewed. Discussed with off going chemical process analyst. The patient is awake alert and sitting up in a chair. She is on room air. She feels much better. She is using the vest and coughing up clear phlegm. She has not had any hemoptysis. No fevers chills night sweats or other constitutional symptoms overnight. She is tolerating a diet. She is asking about physical therapy. Review of Systems Review of Systems: All systems reviewed & are unremarkable except as noted in Subjective Physical Exam Constitutional: WD/WN, vitals as above Respiratory: no respiratory distress, no labored breathing and not tachypneic Auscultation: + rhonchi; no crackles and no wheezes Cardiovascular: HR irregularly irregular, no murmurs, 1+ bilateral pitting edema Gastrointestinal (Abdomen): normal bowel sounds, soft, nontender, no hepatosplenomegaly Skin: no rashes, warm and dry Psychiatric: Alert, oriented to self Results & Data Results & Data Vital Signs (Past 12 Hours) Vital Signs Temp Pulse Pulse Resp BP Pulse Ox O2 Del Method 08/27/22 08:21 79 19 137/48 L 100 Room Air 08/27/22 07:09 76 08/27/22 07:07 87 18 93 Room Air 08/26/22 22:01 85 08/27/22 03:01 37 C 69 18 131/66 92 Room Air 08/27/22 02:08 70 17 93 Room Air 08/26/22 23:21 37 C 72 18 125/63 91 Room Air 08/26/22 21:20 Nasal Cannula 08/26/22 22:15 70 16 93 Nasal Cannula O2 Flow Rate 08/27/22 08:21 08/27/22 07:09 08/27/22 07:07 08/26/22 22:01 08/27/22 03:01 08/27/22 02:08 08/26/22 23:21 08/26/22 21:20 2 08/26/22 22:15 2 Laboratory Results 08/27/22 05:40 08/27/22 05:40 No new culture data Diagnostic Findings No new imaging PG Care Time/CCT Total # of Minutes Spent Total Time Spent with Patient: Total time spent is greater than 50% in coordination of care (as documented) at patient's floor/unit and/or counseling patient: Coding Level of Care Code 35637 SUB INP/OBS CARE 2/35MIN Diagnoses Aspiration pneumonia J69.0 Acute respiratory failure with hypoxia J96.01 Weakness R53.1
--- NOTE | 2022-08-27 09:18 | Nephrology Progress Note ---
Date of Service August 27, 2022 Assessment & Plan (1) Acute kidney injury superimposed on CKD: Plan: * Improved following aggressive diuresis. Patient is net 9L volume negative. She is 4 kg below her outpatient EDW of 113 kg * Baseline Cr 1.0 * Will remove Aguilera catheter and order I&O (2) Acute on chronic heart failure with preserved ejection fraction (HFpEF): Plan: * Clinically euvolemic to volume contracted (dry MM, no peripheral edema) * 08/26/22 CXR revealed L lung reinflated, small L effusion * Continue to hold Bumex. Encourage oral hydration. Monitor UO, PRP, serum bicarbonate (3) Anemia: Plan: * Progressive anemia likely related to hospital lab draws * Iron saturation 35%, Ferritin < 200 (4) Pulmonary hypertension: Plan: * Clinical improvement with diuresis (5) Hypertension: Plan: * BP acceptable. Remains rate controlled Afib with metoprolol and diltiazem Admission and Anticipated Discharge Date Admission Date: August 19, 2022 Subjective Mrs. Bernabe was evaluated in her hospital room this morning. She was sitting up in a chair breathing easily on RA. Mrs. Bernabe expressed a desire to have her Aguilera catheter removed and begin physical therapy. Review of Systems Constitutional: + weakness; no fever Eyes: no problem reported Ear, Nose, Mouth, Throat: no problem reported Respiratory: no dyspnea Cardiovascular: no chest pain Gastrointestinal: no nausea, no vomiting and no diarrhea/loose stools Physical Exam Constitutional: not in distress Eyes: PERRL, conjunctivae normal, anicteric sclerae ENMT: external ear and nose normal, oropharynx normal Mouth: + dry oral mucous membranes Neck: trachea midline, no thyromegaly Respiratory: Auscultation: lungs clear to auscultation bilaterally and + diminished lung sounds (L side) Cardiovascular: Rate/Rhythm: regular rate and regular rhythm Gastrointestinal (Abdomen): normal bowel sounds, soft, nontender, no hepatosplenomegaly Skin: no rashes, warm and dry Neurologic: Speech / Cognition: normal speech and normal cognition Results & Data Vital Signs (Past 12 Hours) Vital Signs Temp Pulse Pulse Resp BP Pulse Ox O2 Del Method 08/27/22 08:21 79 19 137/48 L 100 Room Air 08/27/22 07:09 76 08/27/22 07:07 87 18 93 Room Air 08/26/22 22:01 85 08/27/22 03:01 37 C 69 18 131/66 92 Room Air 08/27/22 02:08 70 17 93 Room Air 08/26/22 23:21 37 C 72 18 125/63 91 Room Air 08/26/22 21:20 Nasal Cannula 08/26/22 22:15 70 16 93 Nasal Cannula O2 Flow Rate 08/27/22 08:21 08/27/22 07:09 08/27/22 07:07 08/26/22 22:01 08/27/22 03:01 08/27/22 02:08 08/26/22 23:21 08/26/22 21:20 2 08/26/22 22:15 2 Laboratory Results Laboratory Tests 08/27/22 08/27/22 05:40 05:40 WBC 10.90 H Hgb 9.8 L Hct 31.0 L Plt Count 167 Sodium 141 Potassium 3.8 Chloride 96 L Carbon Dioxide 38 H BUN 28 H Creatinine 1.68 H Glucose 124 H Transferrin % Sat 35 Ferritin 84.4 PG Care Time/CCT Total # of Minutes Spent Total Time Spent with Patient: Total time spent is greater than 50% in coordination of care (as documented) at patient's floor/unit and/or counseling patient: Coding Level of Care Code 08745 SUB INP/OBS CARE 3/50MIN Diagnoses Acute kidney injury superimposed on CKD N17.9; N18.9 Acute on chronic heart failure with preserved ejection fraction (HFpEF) I50.33 Anemia D64.9 Anemia type: unspecified type Pulmonary hypertension I27.20 Hypertension I10 (3) Anemia Anemia type: unspecified type Qualified Code(s): D64.9 - Anemia, unspecified
[2022-08-27] MEDS: cefUROXime axetil 500 MG TAB PO SCH ×2 (09:52→20:38)
[2022-08-27] MEDS ORDERED: Nursing to Pharmacy Communication SCH (10:45)
[2022-08-27] MEDS ORDERED: ACETAMINOPHEN 325 MG TAB ONE (10:52)
[2022-08-27] MEDS: BUMETANIDE 1 MG TAB PO SCH ×2 (12:41→17:22)
--- NOTE | 2022-08-27 14:09 | Pharmacy Report ---
Pharmacy Glycemic Short Note 2 - Date of Service August 27, 2022 - Glycemic Short BSG Results (Last 24 hours): 08/26/22 08/26/22 08/27/22 16:50 20:07 00:59 Glucose POC Glucose 160 H 159 H 145 H 08/27/22 08/27/22 08/27/22 05:40 07:25 12:09 Glucose 124 H POC Glucose 124 H 172 H OUTPATIENT ANTIDIABETIC REGIMEN: * NPH Insulin 12-16 units QPM * Regular Insulin 6-8 units TIDM * Metformin ER 1000 mg PO BID * HbA1c = 7.1% on 08/18/22 ASSESSMENT: 08/27/22 * BSGs yesterday were [phone] mg/dL. * Patient received 47 units of insulin (26 units of basal and 20 units of bolus). * Fasting today is 124 mg/dL. Increase basal back to 32 units today (about 20% reduction from 40 units patient previously tolerated). * Novolog tightened yesterday so continue. 08/25/22 * Blood sugars trending down. Patient received 40 units of Lantus + 11 units of Novolog yesterday. * Fasting of 84 mg/dL despite being on the same basal dose since 08/20. Will decrease Lantus dose significantly. * Lunch BSG also below goal, 73 mg/dL. Will also loosen CF/CR out of precaution. * Patient changed to NPO status. 08/24/22 * Blood sugars well controlled on current regime, no changes in insulin at this time. * Patient still requiring 7L O2/day, IV Zosyn. 08/22/22 * BSGs have been stable on current regimen. * Novolog parameters were loosened slightly yesterday d/t downward trend of BSGs throughout the day. * No further changes are indicated at this time. 08/19 * 77 y/o F admitted for CHF exacerbation last night. She has history of Type 2 diabetes managed on basal and bolus insulins and oral Metformin at home. * BSGs have been above 200 mg/dl consistently since last night despite patient receiving basal 15 units at HS yesterday. * Novolog was ordered based on stress of 2 last night. * Fasting BSG = 244 mg/dl today. Added 15 units of basal insulin again this AM but pre-lunch BSG still at 241 mg/dl. * Novolog parameters tightened with lunch and increased basal insulin BID starting at HS today. PLAN FOR INPATIENT GLYCEMIC CONTROL: * Hold outpatient diabetes medications * Basal insulin * Lantus 16 units SQ BID * Bolus insulin * NovoLog per scale ACHS or Q6hrs while NPO * Goal Range: Low 110 mg/dL - High 140 mg/dL * Correction Factor: 20 mg/dL/unit * Nutritional / Prandial insulin per carb ratio of 1 unit per 6 grams CHO consumed
--- NOTE | 2022-08-27 15:36 | Hospitalist Progress Note ---
Date of Service August 27, 2022 Assessment & Plan (1) Acute respiratory failure with hypoxia: Plan: Present on admission. Now resolved. She is on room air . Repeat CXR improved (2) Aspiration pneumonia: Plan: Zosyn has been de-escalated to oral Ceftin therapy. Appreciate pulmonary medicine consultation and recommendations. CT Chest on admission showed left perihilar with left greater than right mid to lower lung zone predominant airspace opacities suggestive of pneumonia/aspiration. MRSA nares negative (3) Acute on chronic heart failure with preserved ejection fraction (HFpEF): Plan: Resolved. Intravenous diuretic switched to oral Bumex. Monitor intake and output . Cardiac echo report reveals normal ejection fraction. Cardiology and Nephrology consulted and appreciate recommendations. Continue beta-wing and statin. (4) Acute metabolic encephalopathy: Plan: Present on admission. Now resolved (5) A-fib: Plan: Chronic. Treated with Coumadin, beta-wing and diltiazem. INR was initially supratherapeutic >9.5 and she was given vitamin K. INR down to 4.3 today, August 27. Coumadin remains on hold (6) Uncontrolled type 2 diabetes mellitus with neurologic complication, with long-term current use of insulin: Plan: ADA diet. Continue basal/bolus insulin (7) S/P aortic valve replacement with bioprosthetic valve: Plan: Appropriately functioning bioprosthetic aortic valve. Coumadin therapy (8) Anemia: Plan: In the setting of intermittent hematuria while on systemic anticoagulation earlier this admission. Also with ecchymosis to left arm from previous IV sites. Serial labs. Plan Anticipate discharge to [facility] when arrangements are finalized Admission and Anticipated Discharge Date Admission Date: August 19, 2022 Subjective Alert and oriented. No new problems. She is awaiting rehab placement. She is now on room air. Oral Bumex has been restarted at patient request. Nephrology and pulmonology entries noted. Zosyn has been de-escalated to oral Ceftin therapy. INR remains elevated but is trending downward now. We will follow. Review of Systems Review of Systems: Constitutional-no fever or chills ENT-no blurred vision, no double vision, no epistaxis, no sore throat Respiratory-no cough, no wheezing, no shortness of breath Cardiac-no palpitations, no chest pain, no syncope GI-no nausea, vomiting, diarrhea, melena, hematochezia -no urinary retention, no urinary incontinence, no dysuria, no hematuria Musculoskeletal-no joint pain, no muscle tenderness Skin-no bruising, no rashes, no pruritus Neuro-no isolated weakness, no paresthesia, no weakness Psych-no depression, no anxiety Physical Exam Physical Exam: General-alert and oriented x3, no fevers, no chills HEENT-head atraumatic and normocephalic, pupils equal and reactive to light, extraocular muscles intact Neck-no lymphadenopathy or thyromegaly, trachea midline Chest-clear to auscultation percussion. No rales wheezing or rhonchi Cardiac-regular rate and rhythm, normal S1 and S2 Abdomen-normal bowel sounds, nontender, no hepatosplenomegaly Extremities-no cyanosis, clubbing, or edema Neuro-cranial nerves II through XII intact, motor and sensory function within normal limits, strength symmetrical , no focal deficits Psych-normal affect, normal mood Results & Data Results & Data Vital Signs (Past 12 Hours) Vital Signs Temp Pulse Pulse Resp BP Pulse Ox O2 Del Method 08/27/22 15:18 76 18 92 Room Air 08/27/22 14:54 71 08/27/22 12:29 36.6 C 90 21 122/60 94 Room Air 08/27/22 11:41 86 18 91 Room Air 08/27/22 08:00 Room Air 08/27/22 08:21 79 19 137/48 L 100 Room Air 08/27/22 07:09 76 08/27/22 07:07 87 18 93 Room Air Laboratory Results 08/27/22 05:40 08/27/22 05:40 PG Care Time/CCT Total # of Minutes Spent Total Time Spent with Patient: Total time spent is greater than 50% in coordination of care (as documented) at patient's floor/unit and/or counseling patient: Coding Level of Care Code 43878 SUB INP/OBS CARE 3/50MIN Diagnoses Acute respiratory failure with hypoxia J96.01 Aspiration pneumonia J69.0 Acute on chronic heart failure with preserved ejection fraction (HFpEF) I50.33 Acute metabolic encephalopathy G93.41 A-fib I48.2 Atrial fibrillation type: permanent Uncontrolled type 2 diabetes mellitus with neurologic complication, with long- term current use of insulin E11.49; E11.65; Z79.4 S/P aortic valve replacement with bioprosthetic valve Z95.3 Anemia D64.9 Anemia type: unspecified type (5) A-fib Atrial fibrillation type: permanent Qualified Code(s): I48.2 - Chronic atrial fibrillation (8) Anemia Anemia type: unspecified type Qualified Code(s): D64.9 - Anemia, unspecified
[2022-08-27] MEDS: ACETAMINOPHEN 325 MG TAB PO PRN (20:37)
[2022-08-27] MEDS: ASPIRIN 81 MG ECTAB PO SCH (20:38)
[2022-08-27] MEDS: dilTIAZem HCl 60 MG TAB PO SCH (20:38)
[2022-08-27] MEDS: METOPROLOL SUCC 25MG EXT REL TAB PO SCH (20:38)
[2022-08-27] MEDS: PRAVASTATIN SOD 40 MG TAB PO SCH (20:38)
[2022-08-28] MEDS: ALBUT/IPRATROP 3MG/0.5MG NEB 3 ML VIAL NEB SCH ×6 (02:30→22:05)
[2022-08-28] MEDS: LEVOTHYROXINE SODIUM 150 MCG TABLET PO SCH (06:15)
[2022-08-28 06:28] LABS: BUN Creatinine Ratio 16.7 (10-20); Calcium 9.1 mg/dl (8.6-10.3); Creatinine Clr Calc Pharmacy 34.9 ml/min; Est GFR (African American) 32.7 ml/min; Est GFR (Non-African American) 28.2 ml/min; Potassium 3.6 mmol/L (3.5-5.1)
[2022-08-28 06:40] LABS: INR 2.5 (0.9-1.1); Prothrombin Time 26.1 Seconds (9.0-12.0)
[2022-08-28] MEDS: SODIUM CHLOR 7% 4 ML NEB NEB SCH ×3 (07:07→19:15)
[2022-08-28] MEDS: BUMETANIDE 1 MG TAB PO SCH ×2 (07:43→17:57)
--- NOTE | 2022-08-28 08:34 | Nephrology Progress Note ---
Date of Service August 28, 2022 Assessment & Plan (1) Acute kidney injury superimposed on CKD: Plan: * Improved following aggressive diuresis * Cr 1.7 today * Baseline Cr 1.0 (2) Acute on chronic heart failure with preserved ejection fraction (HFpEF): Plan: * Volume status markedly improved. Patient is net 9 L volume negative since admission * Patient does still have trace B LE swelling * Primary service has restarted oral Bumex therapy. Monitor UO, PRP (3) Anemia: Plan: * Progressive anemia likely related to hospital lab draws * Iron saturation 35%, Ferritin < 200 * Will provide one dose SQ Epogen today (4) Pulmonary hypertension: Plan: * Clinical improvement with diuresis (5) Hypertension: Plan: * BP acceptable. Remains rate controlled Afib with metoprolol and diltiazem Admission and Anticipated Discharge Date Admission Date: August 19, 2022 Subjective Mrs. Bernabe was evaluated in her hospital room this morning. She was sitting up in a chair breathing easily on RA. Mrs. Bernabe reported poor sleep last night (percussion vest at 11pm) and confusion this morning. She was able to work with PT yesterday and is anxious to transfer to [facility] Review of Systems Constitutional: + weakness; no fever Eyes: no problem reported Ear, Nose, Mouth, Throat: no problem reported Respiratory: no dyspnea Cardiovascular: no chest pain Gastrointestinal: no nausea, no vomiting and no diarrhea/loose stools Physical Exam Constitutional: not in distress Eyes: PERRL, conjunctivae normal, anicteric sclerae ENMT: external ear and nose normal, oropharynx normal Neck: trachea midline, no thyromegaly Respiratory: Auscultation: lungs clear to auscultation bilaterally Cardiovascular: Rate/Rhythm: regular rate and regular rhythm Extremities: + edema (1+ pretibial pitting edema) Gastrointestinal (Abdomen): normal bowel sounds, soft, nontender, no hepatosplenomegaly Skin: no rashes, warm and dry Neurologic: Speech / Cognition: normal speech and normal cognition Results & Data Vital Signs (Past 12 Hours) Vital Signs Temp Pulse Resp BP Pulse Ox O2 Del Method 08/28/22 08:05 Room Air 08/28/22 07:55 36.7 C 86 18 125/65 98 Room Air 08/28/22 07:07 79 18 93 Room Air 08/28/22 03:00 36.6 C 82 18 127/68 92 Room Air 08/27/22 23:21 80 19 92 Room Air 08/27/22 22:59 36.5 C 85 18 119/70 95 Nasal Cannula Laboratory Results Laboratory Tests 08/24/22 08/27/22 08/27/22 05:55 05:40 05:40 WBC 10.90 H Hgb 9.8 L Hct 31.0 L Plt Count 167 Sodium Potassium Chloride Carbon Dioxide BUN Creatinine Est GFR (Non-Af Amer) Glucose Transferrin % Sat 35 Ferritin 84.4 Albumin 3.3 L 08/28/22 05:50 WBC Hgb Hct Plt Count Sodium 139 Potassium 3.6 Chloride 96 L Carbon Dioxide 36 H BUN 29 H Creatinine 1.74 H Est GFR (Non-Af Amer) 28.2 Glucose 156 H Transferrin % Sat Ferritin Albumin PG Care Time/CCT Total # of Minutes Spent Total Time Spent with Patient: Total time spent is greater than 50% in coordination of care (as documented) at patient's floor/unit and/or counseling patient: Coding Level of Care Code 54735 SUB INP/OBS CARE 3/50MIN Diagnoses Acute kidney injury superimposed on CKD N17.9; N18.9 Acute on chronic heart failure with preserved ejection fraction (HFpEF) I50.33 Anemia D64.9 Anemia type: unspecified type Pulmonary hypertension I27.20 Hypertension I10 (3) Anemia Anemia type: unspecified type Qualified Code(s): D64.9 - Anemia, unspecified
[2022-08-28] MEDS: LANTUS PER UNIT CHARGE SC SCH ×2 (08:40→20:40)
[2022-08-28] MEDS: guaiFENesin/DEXTROM SYRUP 100MG/10MG 5ML UDC PO PRN ×2 (08:41→22:19)
[2022-08-28] MEDS: INSULIN ASPART PER UNIT CHARGE SC SCH ×4 (08:41→20:40)
[2022-08-28] MEDS: POTASSIUM CITRATE 10 MEQ TAB PO SCH ×2 (08:41→19:53)
[2022-08-28] MEDS: cefUROXime axetil 500 MG TAB PO SCH ×2 (08:42→19:54)
[2022-08-28] MEDS: allopurinoL 100 MG TAB PO SCH (08:42)
[2022-08-28] MEDS: dilTIAZem HCL 240 MG CAPCR PO SCH (08:42)
[2022-08-28] MEDS: CETIRIZINE HCL 10 MG TABLET PO PRN (08:42)
[2022-08-28] MEDS: EYE OPR SCH ×2 (08:43→19:54)
[2022-08-28] MEDS: FLUOROMETHOLONE 0.1% OPR SCH ×2 (08:43→19:54)
[2022-08-28] MEDS: prednisoLONE acetate 1% OP SUSP 5 ML BTL OPR SCH ×4 (08:44→19:55)
[2022-08-28] MEDS: POLYETHYLENE (MIRALAX) 17 GM PACK PO SCH (08:44)
[2022-08-28] MEDS ORDERED: EPOETIN ALFA 10,000 UNITS/ML VIAL SQ ONE (09:00)
--- NOTE | 2022-08-28 09:50 | Pulmonology Progress Note ---
Date of Service August 28, 2022 Assessment & Plan (1) Aspiration pneumonia: (2) Acute respiratory failure with hypoxia: (3) Weakness: Plan Impression: 77-year-old female with atelectasis of the left lung resolved with pulmonary toilet. She is on antibiotics for potential pneumonia. Recommendations: 1. Atelectasis of the left lung: Resolved. Continue aggressive pulmonary toile t with flutter valve, percussive vest, and out of bed to chair as tolerated. 2. Hypoxemia: Resolved. Two-step oxygen evaluation prior to discharge. 3. Questionable pneumonia: The patient is completing a course of Ceftin 4. Continue PT and OT. Her pulmonary status appears to be back to baseline. Pulmonary will sign off at this point time. Feel free to contact us with additional questions or concerns Admission and Anticipated Discharge Date Admission Date: August 19, 2022 Subjective Patient seen and examined. EMR reviewed. The patient is seen sitting up in the chair. She had breakfast. She states she woke up feeling confused and is quite distraught about this. From a respiratory standpoint she is doing well. She continues to expectorate phlegm. She is not had any hemoptysis. No chest pain palpitations. She denies fevers chills night sweats or other constitutional symptoms Review of Systems Review of Systems: All systems reviewed & are unremarkable except as noted in Subjective Physical Exam Constitutional: WD/WN, vitals as above Respiratory: no respiratory distress, no labored breathing and not tachypneic Auscultation: + rhonchi; no crackles and no wheezes Gastrointestinal (Abdomen): normal bowel sounds, soft, nontender, no hepatosplenomegaly Skin: no rashes, warm and dry Results & Data Results & Data Vital Signs (Past 12 Hours) Vital Signs Temp Pulse Resp BP Pulse Ox O2 Del Method 08/28/22 08:05 Room Air 08/28/22 07:55 36.7 C 86 18 125/65 98 Room Air 08/28/22 07:07 79 18 93 Room Air 08/28/22 03:00 36.6 C 82 18 127/68 92 Room Air 08/27/22 23:21 80 19 92 Room Air 08/27/22 22:59 36.5 C 85 18 119/70 95 Nasal Cannula Laboratory Results 08/27/22 05:40 08/28/22 05:50 Diagnostic Findings No new imaging PG Care Time/CCT Total # of Minutes Spent Total Time Spent with Patient: Total time spent is greater than 50% in coordination of care (as documented) at patient's floor/unit and/or counseling patient: Coding Level of Care Code 62799 SUB INP/OBS CARE 2/35MIN Diagnoses Aspiration pneumonia J69.0 Acute respiratory failure with hypoxia J96.01 Weakness R53.1
[2022-08-28] MEDS: NYSTATIN CR 15 GM TUBE EXT SCH ×2 (12:34→19:55)
--- NOTE | 2022-08-28 14:29 | Hospitalist Progress Note ---
Date of Service August 28, 2022 Assessment & Plan (1) Acute respiratory failure with hypoxia: Plan: Present on admission. Now resolved. She is on room air . Repeat CXR improved (2) Aspiration pneumonia: Plan: Zosyn has been de-escalated to oral Ceftin therapy. Appreciate pulmonary medicine consultation and recommendations. CT Chest on admission showed left perihilar with left greater than right mid to lower lung zone predominant airspace opacities suggestive of pneumonia/aspiration. MRSA nares negative (3) Acute on chronic heart failure with preserved ejection fraction (HFpEF): Plan: Resolved. Intravenous diuretic has been switched to oral Bumex. Monitor intake and output . Cardiac echo report reveals normal ejection fraction. Cardiology and Nephrology consulted and appreciate recommendations. Continue beta-wing and statin. (4) Acute metabolic encephalopathy: Plan: Present on admission. Now resolved (5) A-fib: Plan: Chronic. Treated with Coumadin, beta-wing and diltiazem. INR was initially supratherapeutic >9.5 and she was given vitamin K. INR down to 2.5 today, August 28. Low-dose Coumadin restarted. (6) Uncontrolled type 2 diabetes mellitus with neurologic complication, with long-term current use of insulin: Plan: ADA diet. Continue basal/bolus insulin (7) S/P aortic valve replacement with bioprosthetic valve: Plan: Appropriately functioning bioprosthetic aortic valve. Coumadin therapy (8) Anemia: Plan: In the setting of intermittent hematuria while on systemic anticoagulation earlier this admission. Also with ecchymosis to left arm from previous IV sites. Serial labs. Plan Anticipate discharge to [facility] when arrangements are finalized . Possibly tomorrowAugust 29 Admission and Anticipated Discharge Date Admission Date: August 19, 2022 Subjective Alert and oriented but she had some sundowning last evening. Probable discharge to [facility] tomorrow, August 29. Aguilera catheter has yet to be removed. INR is down to 2.5. Coumadin restarted at 1 mg daily. Creatinine stable at 1.7. Review of Systems Review of Systems: Constitutional-no fever or chills ENT-no blurred vision, no double vision, no epistaxis, no sore throat Respiratory-no cough, no wheezing, no shortness of breath Cardiac-no palpitations, no chest pain, no syncope GI-no nausea, vomiting, diarrhea, melena, hematochezia -no urinary retention, no urinary incontinence, no dysuria, no hematuria Musculoskeletal-no joint pain, no muscle tenderness Skin-no bruising, no rashes, no pruritus Neuro-no isolated weakness, no paresthesia, no weakness Psych-no depression, no anxiety Physical Exam Physical Exam: General-alert and oriented x3, no fevers, no chills HEENT-head atraumatic and normocephalic, pupils equal and reactive to light, extraocular muscles intact Neck-no lymphadenopathy or thyromegaly, trachea midline Chest-clear to auscultation percussion. No rales wheezing or rhonchi Cardiac-regular rate and rhythm, normal S1 and S2 Abdomen-normal bowel sounds, nontender, no hepatosplenomegaly Extremities-no cyanosis, clubbing, or edema Neuro-cranial nerves II through XII intact, motor and sensory function within normal limits, strength symmetrical , no focal deficits Psych-normal affect, normal mood Results & Data Results & Data Vital Signs (Past 12 Hours) Vital Signs Temp Pulse Resp BP Pulse Ox O2 Del Method 08/28/22 11:27 36.6 C 78 20 111/77 100 Room Air 08/28/22 10:44 63 18 95 Room Air 08/28/22 08:05 Room Air 08/28/22 07:55 36.7 C 86 18 125/65 98 Room Air 08/28/22 07:07 79 18 93 Room Air 08/28/22 03:00 36.6 C 82 18 127/68 92 Room Air Laboratory Results 08/27/22 05:40 08/28/22 05:50 PG Care Time/CCT Total # of Minutes Spent Total Time Spent with Patient: Total time spent is greater than 50% in coordination of care (as documented) at patient's floor/unit and/or counseling patient: Coding Level of Care Code 31431 SUB INP/OBS CARE 3/50MIN Diagnoses Acute respiratory failure with hypoxia J96.01 Aspiration pneumonia J69.0 Acute on chronic heart failure with preserved ejection fraction (HFpEF) I50.33 Acute metabolic encephalopathy G93.41 A-fib I48.2 Atrial fibrillation type: permanent Uncontrolled type 2 diabetes mellitus with neurologic complication, with long- term current use of insulin E11.49; E11.65; Z79.4 S/P aortic valve replacement with bioprosthetic valve Z95.3 Anemia D64.9 Anemia type: unspecified type (5) A-fib Atrial fibrillation type: permanent Qualified Code(s): I48.2 - Chronic atrial fibrillation (8) Anemia Anemia type: unspecified type Qualified Code(s): D64.9 - Anemia, unspecified
[2022-08-28] MEDS ORDERED: WARFARIN SOD 1 MG TAB PO SCH (16:00)
[2022-08-28] MEDS: METOPROLOL SUCC 25MG EXT REL TAB PO SCH (19:52)
[2022-08-28] MEDS: PRAVASTATIN SOD 40 MG TAB PO SCH (19:52)
[2022-08-28] MEDS: dilTIAZem HCl 60 MG TAB PO SCH (19:53)
[2022-08-28] MEDS: ASPIRIN 81 MG ECTAB PO SCH (19:53)
[2022-08-29] MEDS: ALBUT/IPRATROP 3MG/0.5MG NEB 3 ML VIAL NEB SCH ×3 (02:25→11:19)
[2022-08-29] MEDS: ACETAMINOPHEN 325 MG TAB PO PRN (03:16)
[2022-08-29] MEDS: LEVOTHYROXINE SODIUM 150 MCG TABLET PO SCH (06:24)
[2022-08-29 06:31] LABS: BUN Creatinine Ratio 18.3 (10-20); Calcium 8.9 mg/dl (8.6-10.3); Creatinine Clr Calc Pharmacy 35.9 ml/min; Est GFR (African American) 33.8 ml/min; Est GFR (Non-African American) 29.2 ml/min; Potassium 3.6 mmol/L (3.5-5.1)
[2022-08-29 06:46] LABS: INR 1.8 (0.9-1.1); Prothrombin Time 18.8 Seconds (9.0-12.0)
[2022-08-29] MEDS: SODIUM CHLOR 7% 4 ML NEB NEB SCH (07:27)
[2022-08-29] MEDS: INSULIN ASPART PER UNIT CHARGE SC SCH ×2 (08:36→12:30)
[2022-08-29] MEDS: allopurinoL 100 MG TAB PO SCH (08:42)
[2022-08-29] MEDS: cefUROXime axetil 500 MG TAB PO SCH (08:42)
[2022-08-29] MEDS: dilTIAZem HCL 240 MG CAPCR PO SCH (08:42)
[2022-08-29] MEDS: BUMETANIDE 1 MG TAB PO SCH (08:42)
[2022-08-29] MEDS: CETIRIZINE HCL 10 MG TABLET PO PRN (08:42)
[2022-08-29] MEDS: NYSTATIN CR 15 GM TUBE EXT SCH (08:43)
[2022-08-29] MEDS: POTASSIUM CITRATE 10 MEQ TAB PO SCH (08:43)
[2022-08-29] MEDS: prednisoLONE acetate 1% OP SUSP 5 ML BTL OPR SCH ×2 (08:43→12:32)
[2022-08-29] MEDS: FLUOROMETHOLONE 0.1% OPR SCH (08:43)
[2022-08-29] MEDS: POLYETHYLENE (MIRALAX) 17 GM PACK PO SCH (08:43)
[2022-08-29] MEDS: EYE OPR SCH (08:43)
--- NOTE | 2022-08-29 08:55 | Nephrology Progress Note ---
Date of Service August 29, 2022 Assessment & Plan (1) Acute kidney injury superimposed on CKD: Plan: * Improved following aggressive diuresis * Cr 1.69 today * Baseline Cr 1.0 (2) Acute on chronic heart failure with preserved ejection fraction (HFpEF): Plan: * Volume status markedly improved. Patient is net 9 L volume negative since admission * Patient does still have trace B LE swelling * Continue oral Bumex therapy. Monitor UO, PRP (3) Anemia: Plan: * Progressive anemia likely related to hospital lab draws * Iron saturation 35%, Ferritin < 200 * Epogen 10,000 units SQ administered 08/28/22 (4) Pulmonary hypertension: Plan: * Clinical improvement with diuresis (5) Hypertension: Plan: * BP acceptable. Remains rate controlled Afib with metoprolol and diltiazem Admission and Anticipated Discharge Date Admission Date: August 19, 2022 Subjective Mrs. Bernabe was evaluated in her hospital room this morning. She was sitting up in a chair breathing easily on RA. Mrs. Bernabe reports improved sleep last night. She was able to work with PT yesterday and is anxious to transfer to [facility] Review of Systems Constitutional: + weakness; no fever Eyes: no problem reported Ear, Nose, Mouth, Throat: no problem reported Respiratory: no dyspnea Cardiovascular: no chest pain Gastrointestinal: no nausea, no vomiting and no diarrhea/loose stools Physical Exam Constitutional: not in distress Eyes: PERRL, conjunctivae normal, anicteric sclerae ENMT: external ear and nose normal, oropharynx normal Mouth: + dry oral mucous membranes Neck: trachea midline, no thyromegaly Respiratory: Auscultation: lungs clear to auscultation bilaterally and + diminished lung sounds (L side) Cardiovascular: Rate/Rhythm: regular rate and regular rhythm Extremities: + edema (trace pretibial pitting edema) Gastrointestinal (Abdomen): normal bowel sounds, soft, nontender, no hepatosplenomegaly Skin: no rashes, warm and dry Neurologic: Speech / Cognition: normal speech and normal cognition Results & Data Vital Signs (Past 12 Hours) Vital Signs Temp Pulse Pulse Resp BP Pulse Ox O2 Del Method 08/29/22 08:25 36.7 C 77 21 138/70 Room Air 08/29/22 07:27 78 18 94 Room Air 08/29/22 07:17 68 08/29/22 02:58 36.6 C 84 20 119/70 96 Room Air 08/28/22 23:15 65 08/28/22 22:49 36.7 C 72 16 115/55 L 94 Room Air Laboratory Results Laboratory Tests 08/29/22 05:36 Sodium 137 Potassium 3.6 Chloride 94 L Carbon Dioxide 36 H BUN 31 H Creatinine 1.69 H Est GFR (Non-Af Amer) 29.2 Glucose 206 H Calcium 8.9 PG Care Time/CCT Total # of Minutes Spent Total Time Spent with Patient: Total time spent is greater than 50% in coordination of care (as documented) at patient's floor/unit and/or counseling patient: Coding Diagnoses Acute kidney injury superimposed on CKD N17.9; N18.9 Acute on chronic heart failure with preserved ejection fraction (HFpEF) I50.33 Anemia D64.9 Anemia type: unspecified type Pulmonary hypertension I27.20 Hypertension I10 (3) Anemia Anemia type: unspecified type Qualified Code(s): D64.9 - Anemia, unspecified
[2022-08-29] MEDS ORDERED: LANTUS PER UNIT CHARGE SC SCH ×2 (09:00→21:00)
--- NOTE | 2022-08-29 12:27 | Discharge Summary ---
Date of Service August 29, 2022 Admission HPI Per Admitting Provider This is a 77-year-old female with past medical history significant history of hypertension, hyperlipidemia, diabetes mellitus insulin-dependent, history of atrial fibrillation anticoagulated with warfarin, history of aortic stenosis and history of CHF who presents to the emergency department complaints of worsening shortness of breath brought in by EMS. Patient reports that she has been feeling a sensation of overall fatigue and having exertional dyspnea over the past 4 to 5 days. Patient also reports that she has been not been fully compliant with her diuretic dose that she has been traveling about a week ago. Patient reports that she has been feeling that her legs are more swollen over the past few days patient also has been having subjective fever but intermittently with fatigue and cough symptoms as well. During present admission patient started feeling some intermittent chest heaviness with associated shortness of breath and hence he became concerned and EMS was called. EMS did place the patient on nonrebreather mask with oxygen supplementation and patient subsequently was feeling better upon arrival to ED. Patient denies any active vomiting or diarrhea. At the time my evaluation patient does not have any chest pain and reports feeling slightly better with supplemental oxygen and diuretics given in the ED. Principal Diagnosis Acute on chronic diastolic CHF, acute hypoxic respiratory failure, metabolic encephalopathy, Coumadin toxicity, acute on chronic kidney disease, suspected aspiration pneumonia Discharge Exam General-alert and oriented x3, no fevers, no chills HEENT-head atraumatic and normocephalic, pupils equal and reactive to light, extraocular muscles intact Neck-no lymphadenopathy or thyromegaly, trachea midline Chest-clear to auscultation percussion. No rales wheezing or rhonchi Cardiac-regular rate and rhythm, normal S1 and S2 Abdomen-normal bowel sounds, nontender, no hepatosplenomegaly Extremities-no cyanosis, clubbing, or edema Neuro-cranial nerves II through XII intact, motor and sensory function within normal limits, strength symmetrical , no focal deficits Psych-normal affect, normal mood Discharge Data Allergies Allergy/AdvReac Type Severity Reaction Status Date / Time Sulfa (Sulfonamide Allergy Severe ANAPHYLAXIS Verified 08/19/22 00:43 Antibiotics) Consultations 08/19/22 00:37 ED Decision to Admit Stat 08/19/22 06:42 Consult Cardiology Routine 08/19/22 14:54 Consult Central Supply Nurse Stat 08/19/22 16:36 Consult Nephrology Routine 08/20/22 10:18 [facility] CHF Program Referral Routine 08/25/22 08:08 Consult Pulmonology Routine 08/27/22 05:40 Consult [facility] senior process analyst Routine Ordered Studies 08/20/22 US renal/blad retro comp Routine 08/23/22 07:53 CT chest diagnostic wo con Routine Hospital Course (1) Acute respiratory failure with hypoxia: Present on admission. Now resolved. She is on room air . Repeat CXR improved (2) Aspiration pneumonia: Zosyn has been de-escalated to oral Ceftin therapy. Appreciate pulmonary medicine consultation and recommendations. CT Chest on admission showed left perihilar with left greater than right mid to lower lung zone predominant airspace opacities suggestive of pneumonia/aspiration. MRSA nares negative (3) Acute on chronic heart failure with preserved ejection fraction (HFpEF): Resolved. Intravenous diuretic has been switched to oral Bumex. Monitor intake and output . Cardiac echo report reveals normal ejection fraction. Cardiology and Nephrology consulted and appreciate recommendations. Continue beta-wing and statin. (4) Acute metabolic encephalopathy: Present on admission. Now resolved (5) A-fib: Chronic. Treated with Coumadin, beta-wing and diltiazem. INR was initially supratherapeutic >9.5 and she was given vitamin K. INR down to 1.8 todayAugust 29. Coumadin dosage up titrated. (6) Uncontrolled type 2 diabetes mellitus with neurologic complication, with long-term current use of insulin: ADA diet. Continue basal/bolus insulin (7) S/P aortic valve replacement with bioprosthetic valve: Appropriately functioning bioprosthetic aortic valve. Coumadin therapy (8) Anemia: In the setting of intermittent hematuria while on systemic anticoagulation earlier this admission. Also with ecchymosis to left arm from previous IV sites. Serial labs. [facility] todayAugust [facility] Total Time Total Time Spent Total Time Spent (In Minutes): 40 minutes Discharge Plan Discharge Items Patient Disposition: Transfer Inpatient Rehab Fac Reason For Visit: CHF EXACERBATION Discharge Diagnosis: Acute on chronic diastolic CHF, Coumadin toxicity, acute on chronic kidney disease, metabolic encephalopathy, transient hypoxic respiratory failure, suspected aspiration pneumonia Activity: Resume your previous activity Non-emergency contact: Primary Care Provider Call non-emergency contact if: you have any medication questions Follow-up/Referrals: Bhumika Norman PA-C [Physician Forest Ec[employer] Professor] - 08/27/22 2:00 pm Yamileth Salazar MD [Primary Care Provider] - Ria Clark PA-C [Physician [employer] Ecology Professor] - 09/10/22 2:00 pm Diet: Carb Consistent or DM2 and Heart Healthy Addtl Attending Provider Instructions: Continue oral antibiotic for 1 more week Pending Studies at Discharge: No Stand-Alone Forms: My [facility] Skilled Items Patient informed of condition?: Yes DNR: Yes Discharge Level of Care: Acute rehab Communicable Disease: No Discharge Prognosis: Stable Lines: None Urinary Catheter: No Medications and DC Order Prescriptions: New polyethylene glycol 3350 [Miralax] 17 gram Powder In Packet 17 g PO DAILY Qty: 14 0RF cefuroxime axetil 500 mg Tablet 500 mg PO BID Qty: 0 0RF bumetanide 1 mg Tablet 3 mg PO BIDM Qty: 0 0RF prednisolone acetate 1 % Drops,Suspension 1 drp OPR QID Qty: 0 0RF Continued acetaminophen 325 mg capsule 650 mg PO QID PRN (Reason: pain) Novolin R Regular U-100 Insuln 100 unit/mL solution 6 - 8 unit SQ TIDM Patient Comments: WITH SLIDING SCALE Rx Instructions: Relion brand 6-8 UNITS WITH MEALS Novolin N NPH U-100 Insulin 100 unit/mL suspension 12 - 16 unit SQ QPM Rx Instructions: Relion brand aspirin [Michael Low Dose Aspirin] 81 mg tablet,delayed release (DR/EC) 81 mg PO QPM Qty: 0 potassium citrate 10 mEq (1,080 mg) tablet extended release 1,080 mg PO BID Qty: 60 5RF metoprolol succinate 25 mg tablet extended release 24 hr 25 mg PO HS Qty: 90 3RF allopurinol 100 mg tablet 100 mg PO DAILY Qty: 90 3RF ergocalciferol (vitamin D2) 1,250 mcg (50,000 unit) capsule 50,000 unit PO MONTHLY Qty: 4 3RF metformin 500 mg tablet extended release 24 hr 1,000 mg PO BID Qty: 360 1RF diltiazem HCl [Tiazac] 240 mg capsule,extended release 24 hr 240 mg PO QAM Qty: 90 3RF diltiazem HCl 60 mg tablet 60 mg PO HS Qty: 90 3RF (DME) Wheelchair (Manual) Device See Rx Instructions .Route Qty: 1 0RF Rx Instructions: As directed pravastatin 80 mg tablet 80 mg PO HS Qty: 90 3RF azelastine 0.15 % (205.5 mcg) spray,non-aerosol 1 sprays INTNAS DAILY PRN (Reason: ALLERGIES) Rx Instructions: administer into each nostril warfarin 2 mg tablet 1 mg PO 3XWK Rx Instructions: TAKE 1MG EVERY SATURDAY/SATURDAY/ SATURDAY warfarin 2 mg tablet 2 mg PO 4XWK Rx Instructions: TAKE 2MG EVERY SATURDAY/SATURDAY/SATURDAY/SATURDAY. bumetanide 2 mg tablet 3 mg PO BID Rx Instructions: TAKE 1 & 1/2 TABLET TWICE DAILY. cetirizine 10 mg tablet 10 mg PO QAM PRN (Reason: Allergy Symptoms) levothyroxine 150 mcg tablet 150 mcg PO DAILYBB Discharge Orders: Discharge Order (Routine); Ordered 08/29/22 Ordered By: Keith Kaur/Other Patient Handouts: Managing Type 2 Diabetes, Special Foot Care for Diabetes Admission Data Admit Date/Time: 08/19/22 00:55 Attending Provider: Keith Mondragon Admit Provider: Bob Herzog Primary Care Provider: Yamileth Salazar Other Providers: Bob Herzog ; Kyree Elias ; Nathan Dang ; Guevara Balderas ; Jake Flowers ; Afshin Zheng ; Tevin Parker Jr ; Joel Miller ; Sari Lewis ; Bhumika Norman ; Valdez Bower ; Tim Cortes ; Keith Daley ; Ria Clark ; Radha Gallardo ; Lizandro Ray Henry C. ; Jake Malin V. ; Ant Shannon ; Hodan Joseph ; Stew Stack ; [facility] Other Interventions: Discharge Summary Assessment (RN) Last Done: 08/29/22 11:27 Coding Level of Care Code 06442 INP/OBS DISCH >30 MIN Diagnoses Acute respiratory failure with hypoxia J96.01 Aspiration pneumonia J69.0 Acute on chronic heart failure with preserved ejection fraction (HFpEF) I50.33 Acute metabolic encephalopathy G93.41 A-fib I48.2 Atrial fibrillation type: permanent Uncontrolled type 2 diabetes mellitus with neurologic complication, with long- term current use of insulin E11.49; E11.65; Z79.4 S/P aortic valve replacement with bioprosthetic valve Z95.3 Anemia D64.9 Anemia type: unspecified type
[2022-08-29] MEDS ORDERED: WARFARIN SOD 2 MG TAB PO SCH (16:00)
[2022-08-30] MEDS ORDERED: ERGOCALCIFEROL 50,000 UNITS 1250 MCG CAP PO SCH (09:00)
== END 2022-08-29 14:29 | DRG 291 ==
LOC: ED 22:59 → SUATTDRO 08-19 00:55 → 4W 08-19 00:55

== ENCOUNTER 2022-10-21 09:56 | Inpatient (IN) ==
--- NOTE | 2022-10-21 10:28 | Emergency Department Note ---
Impression & Plan AMS (altered mental status), Acute kidney injury superimposed on chronic kidney disease, Acute exacerbation of congestive heart failure, Non-ST elevation AL (NSTEMI), Pulmonary edema ED Provider Note HISTORY OF PRESENT ILLNESS: Patient is a 77-year-old female presenting with altered mental status and increased bilateral lower extremity edema. Patient reportedly has had been hav ing progressively worsening confusion over the last 2 days. She was reportedly found by her today with a bowl of unknown pills. Patient does not remember taking any of them. She reportedly has not taken her medications in the last 2 days. She reportedly has been having progressively worsening swelling of her bilateral lower extremities and increasing shortness of breath. No reported cough or fevers. Patient is very confused but has no complaints on arrival to the emergency department. She does not wear any supplemental oxygen at baseline. ROS: as above PHYSICAL EXAM: Constitutional: Patient appears in no acute distress. Morbidly obese HENT: Head: Normocephalic and atraumatic. Eyes: EOMI, PERRL Mouth/Throat: Mucous membranes moist. Neck: Trachea midline. Neck supple. Cardiovascular: Tachycardic with irregularly irregular rhythm. No murmurs, rubs or gallops. Intact distal pulses. Pulmonary/Chest: Patient hypoxic on room air and placed on nasal cannula. No significant accessory muscle use. No wheezes Abdominal: Abdomen soft, no tenderness, rebound or guarding. Musculoskeletal: Patient has lymphedema of her bilateral lower extremities. She also has chronic venous stasis of the bilateral lower extremities. Noted to have some erythema of the anterior bilateral lower extremities. No pitting edema noted Skin: Warm and dry. Neurological: Alert. CN II-XII grossly intact, moving all extremities spon taneously. MDM: - Vitals signs showed tachycardia and hypoxia. - History obtained via EMS, given patient's confusion. Patient presents with altered mental status and lower extremity edema. Patient reportedly has been having progressively worsening confusion over the last 2 days. She was found by her today acting abnormally and was found by bowl of unknown pills. Patient does not provide any useful information. She reportedly has not taken her meds in the last 2 days. Has been having increasing swelling of her lower extremities and increasing shortness of breath. Does not wear any oxygen at baseline. Patient denies any chest pain - Chronic conditions affecting care: Afib (on coumadin); CAD; CHF; CAD (s/p CABG); DM-2; HTN; HLD; hypothyroidism; pulmonary hypertension - Differential diagnoses include, but are not limited to: Congestive heart failure; acute coronary syndrome; COPD/asthma exacerbation; pulmonary edema; pulmonary embolism; pneumonia; pneumothorax; viral syndrome - Order placed for continuous cardiac monitoring. At this time, monitor showed rate of 105 bpm with irregular rhythm, per my interpretation. - External medical records reviewed. EMS run sheet reviewed. Patient was vitally stable in route. No medications were given prehospital - EKG reviewed by myself showed atrial fibrillation with rapid ventricular rate. Rate 111 bpm. QTc 495. Noted to have a left bundle branch block, which has been noted on a previous EKG from 08/24/2022 - Laboratory workup interpreted by myself showed normal WBC; ERIN on CKD (Cr 4.27); hypermagnesemia (Mg 2.7); elevated troponin (18.4); elevated BNP (759); normal procalcitonin; negative toxicology panel (alcohol/salicylate/acetaminophen) - CXR shows evidence of pulmonary edema, per my interpretation - Patient was given 40 mg IV lasix. - Blood cultures obtained. - CT head wo contrast negative for acute intracranial pathology. - VBG grossly unremarkable - Discussion was had with case management social worker about patient's case and need for admission - Hospitalist, Dr. Hoffmann, consulted for admission - Patient admitted to [facility] for further evaluation and management. I provided 31 minutes of critical care time to this patient's care outside of billable procedures. ASSESSMENT AND PLAN: Diagnosis: Altered mental status; ERIN on CKD; pulmonary edema; NSTEMI; CHF exacerbation Plan: admit Past Med/Surg History Medical History A-fib On Warfarin>FOLLOWED DR. BUCIO A-fib Anemia Aortic stenosis Atrial flutter Atrial flutter CAD in [place] artery Chronic diastolic congestive heart failure Colon polyps Coronary artery disease S/P CABG x 1 with AVR 2016. Diabetes mellitus due to abnormal insulin Diabetic peripheral neuropathy Hematuria History of loop recorder Implanted AND REMOVED Hx of malignant melanoma of skin s/p simple excision Hyperlipemia Hyperlipemia Hypertension Hypothyroidism Hypothyroidism Left bundle branch block Mitral regurgitation Obesity, morbid, BMI 40.0-49.9 Pulmonary hypertension Seasonal allergies Type 2 diabetes mellitus Vitamin D deficiency Surgical History H/O aortic valve replacement 2017 [facility] - BOVINE ALSO HAD CABG X1 VESSEL H/O cardiac catheterization [facility] AND [facility] - PRIOR TO 2017 SURGERY History of carpal tunnel release of both wrists History of colonoscopy History of partial hysterectomy History of transesophageal echocardiography ([facility]) PRIOR TO SURGERY 2016 Hx of cyst of breast s/p excision Hx of right cataract extraction Hx of tonsillectomy S/P aortic valve replacement with bioprosthetic valve S/P CABG (coronary artery bypass graft) Status post hernia repair (11/24/18) Umbilical hernia with multiple defects with surgimesh 11/24/18 Dr. Chapman Simpson teeth removed Family History Mother Family history of diabetes mellitus Grandmother (Maternal) Family history of diabetes mellitus Grandmother (Paternal) Family history of diabetes mellitus Aunt Family history of diabetes mellitus Uncle Family history of diabetes mellitus Father FHx: colon cancer Other FHx: esophageal cancer FHx: heart disease No family history of adverse response to anesthesia Social History Smoking Status: Former smoker Second Hand Exposure: No; Do You Dip or Chew Tobacco: No; Hx Alcohol Use: No Hx Substance Use: No Preferred Language: Korean Communication Ability: Effective Visual Impairment: No Limitations Lpn Home Health Required: No Beliefs That Will Affect Care: None marital status: Current Living Situation: Spouse Feels Safe at Home: Yes caffeine: No Seatbelt Use: always Assistive Devices: Walker Allergies Allergies Allergy/AdvReac Type Severity Reaction Status Date / Time Sulfa (Sulfonamide Allergy Severe ANAPHYLAXIS Verified 10/16/22 11:38 Antibiotics) Home Meds Home Medications Medication Instructions Recorded Confirmed aspirin 81 mg tablet,delayed 81 mg PO QPM ##0 10/19/18 10/16/22 release (Michael Low Dose Aspirin) azelastine 205.5 mcg (0.15 %) 1 sprays intranasal DAILY PRN 10/22/18 10/16/22 nasal spray ALLERGIES acetaminophen 325 mg capsule 650 mg PO QID PRN pain 07/16/22 10/16/22 cetirizine 10 mg tablet 10 mg PO QAM PRN Allergy Symptoms 08/19/22 10/16/22 insulin NPH isoph U-100 human 100 18 unit subcut QPM 09/11/22 10/16/22 unit/mL subcutaneous suspension (Novolin N NPH U-100 Insulin isophane) insulin regular human 100 unit/mL 8 unit subcut TIDM 09/11/22 10/16/22 injection solution (Novolin R Regular U-100 Insulin) timolol maleate 0.5 % once daily 1 drp ophthalmic (eye) DAILY 09/11/22 10/16/22 eye drops warfarin 2 mg tablet See Rx Instructions PO .COMPLEX 10/11/22 10/16/22 Previous Rx's Medication Instructions Recorded metoprolol succinate 25 mg 25 mg PO HS #90 tabs 10/25/21 tablet,extended release 24 hr allopurinol 100 mg tablet 100 mg PO DAILY #90 tabs 04/17/22 ergocalciferol (vitamin D2) 1,250 50,000 unit PO MONTHLY #4 caps 04/17/22 mcg (50,000 unit) capsule diltiazem HCl 60 mg tablet 60 mg PO HS #90 tabs 04/18/22 metformin 500 mg tablet,extended 1,000 mg PO BID #360 tabs 06/12/22 release 24 hr diltiazem HCl 240 mg capsule,24 240 mg PO QAM #90 caps 07/05/22 hr,extended release (Tiazac) Wheelchair (Manual) #1 ea 07/12/22 prednisolone acetate 1 % eye 1 drp OPR QID #0 mL 08/29/22 drops,suspension levothyroxine 150 mcg tablet 150 mcg PO DAILY #30 tabs 09/26/22 potassium citrate 10 mEq (1,080 1,080 mg PO BID #60 tabs 10/08/22 mg) tablet,extended release pravastatin 80 mg tablet 80 mg PO HS #90 tabs 10/08/22 bumetanide 2 mg tablet 4 mg PO BID #120 tabs 10/16/22 spironolactone 25 mg tablet 25 mg PO DAILY #30 tabs 10/16/22 Results & Data (ED) Vital Signs Vital Signs - 24 hr 10/21/22 10:03 10/21/22 10:24 10/21/22 10:23 Temperature 36.6 C Temperature Source Temporal Artery Scan Pulse Rate 130 H 102 H Pulse Rate [Right Finger] Pulse Rhythm Irregular Pulse Rhythm [Right Finger] Pulse Strength [Right Finger] Respiratory Rate 20 Respiratory Effort / Characteristics Short of Breath Respiratory Depth Respiratory Pattern Blood Pressure 148/86 H Blood Pressure [Right Arm] Blood Pressure Mean 106 Blood Pressure Mean [Right Arm] Blood Pressure Position [Right Arm] Pulse Oximetry 89 L 99 Oxygen Delivery Method Room Air Nasal Cannula Oxygen Flow Rate 2 Sepsis Recent Fever Within 48 Hours No Sepsis New/Unexplained Change in Mental Status Yes Sepsis Action Taken by Nursing No Action Required 10/21/22 11:00 10/21/22 13:00 Temperature Temperature Source Pulse Rate Pulse Rate [Right Finger] 96 H 101 H Pulse Rhythm Pulse Rhythm [Right Finger] Irregular Irregular Pulse Strength [Right Finger] Normal Normal Respiratory Rate 18 20 Respiratory Effort / Characteristics Non-Labored Spontaneous Respiratory Depth Normal Normal Respiratory Pattern Regular Regular Blood Pressure Blood Pressure [Right Arm] 119/84 191/151 H Blood Pressure Mean Blood Pressure Mean [Right Arm] 95 164 Blood Pressure Position [Right Arm] Lying Lying Pulse Oximetry 94 97 Oxygen Delivery Method Nasal Cannula Nasal Cannula Oxygen Flow Rate 2 3 Sepsis Recent Fever Within 48 Hours Sepsis New/Unexplained Change in Mental Status Sepsis Action Taken by Nursing Laboratory Data 10/21/22 10:05 10/21/22 10:05 Lab Results 10/21/22 10/21/22 10/21/22 Range/Units 10:05 10:05 10:05 WBC 8.61 (4.8-10.8) K/ul RBC 3.62 L (4.20-5.40) M/uL Hgb 10.2 L (12.0-16.0) g/dl Hct 31.6 L (37.0-47.0) % MCV 87.3 (80.0-100.0) fL MCH 28.2 (25.0-34.0) pg MCHC 32.3 (32.0-36.0) g/dL RDW Std Deviation 50.7 H (36.4-46.3) fL RDW Coeff of [place] 16.2 H (11.5-14.5) % Plt Count 197 (130-400) K/uL MPV 10.1 (9.4-12.4) fL Immature Gran % (Auto) 0.3 % Neut % (Auto) 72.1 % Lymph % (Auto) 15.9 % [place] % (Auto) 9.5 % Eos % (Auto) 1.6 % Baso % (Auto) 0.6 % Neut # (Auto) 6.20 (1.40-6.50) K/uL Lymph # (Auto) 1.37 (1.2-3.4) K/uL [place] # (Auto) 0.82 H (0.11-0.59) K/uL Eos # (Auto) 0.14 (0-0.50) K/uL Baso # (Auto) 0.05 (0-0.2) K/uL Immature Gran # (Auto) 0.03 (0.01-0.20) K/uL VBG pH (7.36-7.41) VBG pCO2 (38-50) mmHg VBG pO2 mmHg VBG HCO3 mmol/L VBG O2 Saturation % VBG Base Excess mEq/L Sodium 144 (136-145) mmol/L Potassium 4.5 (3.5-5.1) mmol/L Chloride 105 (98-107) mmol/L Carbon Dioxide 28 (21-32) mmol/L Anion Gap 11 (3-11) BUN 78 H (6-23) mg/dl Creatinine 4.27 H (0.6-1.2) mg/dl Est Cr Clr Drug Dosing Not Reportable Est GFR ( Amer) 11.0 ml/min Est GFR (Non-Af Amer) 9.5 ml/min BUN/Creatinine Ratio 18.3 (10-20) Glucose 166 H (70-99(Fasting)) mg/dl Lactate (0.4-2.0) mmol/L Calcium 9.6 (8.6-10.3) mg/dl Magnesium 2.7 H (1.7-2.4) mg/dl Total Bilirubin 1.0 (0.2-1.0) mg/dl Direct Bilirubin 0.3 H (0-0.2) mg/dl AST 11 L (13-39) U/L ALT 8 (7-52) U/L Alkaline Phosphatase 151 H (34-104) U/L Troponin I High Sens 18.4 H (0-14) pg/ml B-Natriuretic Peptide (0-100) pg/ml Total Protein 7.4 (6.0-8.3) gm/dl Albumin 3.9 (3.4-5.0) gm/dl Procalcitonin 0.12 (0-0.5) ng/ml Urine Color Urine Appearance (Clear) Urine pH (4.5-7.5) Ur Specific [place] (1.000-1.030) Urine Protein (Negative) Urine Glucose (UA) (Negative) Urine Ketones (Negative) Urine Blood (Negative) Urine Nitrite (Negative) Urine Bilirubin (Negative) Urine Urobilinogen (Negative) Ur Leukocyte Esterase (Negative) Urine WBC (Auto) (0-5) /hpf Urine RBC (Auto) (0-4) /hpf U Hyaline Cast (Auto) (0-5) /lpf U Epithel Cells (Auto) (0-5) /lpf Urine Bacteria (Auto) (Negative) Salicylates (3.0-30) mg/dl Acetaminophen (10-30) ug/ml Ethyl Alcohol mg/dL (<10.0) mg/dl Adenovirus (PCR) (NotDetected) B. pertussis DNA (PCR) (NotDetected) B.parapertussis DNA PCR (NotDetected) C. pneumoniae DNA (PCR) (NotDetected) Coronavirus OC43 (PCR) (NotDetected) Coronavirus HKU1 (PCR) (NotDetected) Coronavirus 229E (PCR) (NotDetected) SARS-CoV-2 (PCR) (NotDetected) Coronavirus NL63 (PCR) (NotDetected) Human Metapneumovir PCR (NotDetected) Influenza Type A (PCR) (NotDetected) Influenza Type B (PCR) (NotDetected) M. pneumoniae (PCR) (NotDetected) Parainfluenza 1 (PCR) (NotDetected) Parainfluenza 2 (PCR) (NotDetected) Parainfluenza 3 (PCR) (NotDetected) Parainfluenza 4 (PCR) (NotDetected) RSV (PCR) (NotDetected) Entero/Rhino (PCR) (NotDetected) 10/21/22 10/21/22 10/21/22 Range/Units 10:05 10:05 10:56 WBC (4.8-10.8) K/ul RBC (4.20-5.40) M/uL Hgb (12.0-16.0) g/dl Hct (37.0-47.0) % MCV (80.0-100.0) fL MCH (25.0-34.0) pg MCHC (32.0-36.0) g/dL RDW Std Deviation (36.4-46.3) fL RDW Coeff of [place] (11.5-14.5) % Plt Count (130-400) K/uL MPV (9.4-12.4) fL Immature Gran % (Auto) % Neut % (Auto) % Lymph % (Auto) % [place] % (Auto) % Eos % (Auto) % Baso % (Auto) % Neut # (Auto) (1.40-6.50) K/uL Lymph # (Auto) (1.2-3.4) K/uL [place] # (Auto) (0.11-0.59) K/uL Eos # (Auto) (0-0.50) K/uL Baso # (Auto) (0-0.2) K/uL Immature Gran # (Auto) (0.01-0.20) K/uL VBG pH (7.36-7.41) VBG pCO2 (38-50) mmHg VBG pO2 mmHg VBG HCO3 mmol/L VBG O2 Saturation % VBG Base Excess mEq/L Sodium (136-145) mmol/L Potassium (3.5-5.1) mmol/L Chloride (98-107) mmol/L Carbon Dioxide (21-32) mmol/L Anion Gap (3-11) BUN (6-23) mg/dl Creatinine (0.6-1.2) mg/dl Est Cr Clr Drug Dosing Est GFR ( Amer) ml/min Est GFR (Non-Af Amer) ml/min BUN/Creatinine Ratio (10-20) Glucose (70-99(Fasting)) mg/dl Lactate 1.3 (0.4-2.0) mmol/L Calcium (8.6-10.3) mg/dl Magnesium (1.7-2.4) mg/dl Total Bilirubin (0.2-1.0) mg/dl Direct Bilirubin (0-0.2) mg/dl AST (13-39) U/L ALT (7-52) U/L Alkaline Phosphatase (34-104) U/L Troponin I High Sens (0-14) pg/ml B-Natriuretic Peptide 759 H (0-100) pg/ml Total Protein (6.0-8.3) gm/dl Albumin (3.4-5.0) gm/dl Procalcitonin (0-0.5) ng/ml Urine Color Urine Appearance (Clear) Urine pH (4.5-7.5) Ur Specific [place] (1.000-1.030) Urine Protein (Negative) Urine Glucose (UA) (Negative) Urine Ketones (Negative) Urine Blood (Negative) Urine Nitrite (Negative) Urine Bilirubin (Negative) Urine Urobilinogen (Negative) Ur Leukocyte Esterase (Negative) Urine WBC (Auto) (0-5) /hpf Urine RBC (Auto) (0-4) /hpf U Hyaline Cast (Auto) (0-5) /lpf U Epithel Cells (Auto) (0-5) /lpf Urine Bacteria (Auto) (Negative) Salicylates < 3.0 L (3.0-30) mg/dl Acetaminophen < 3 L (10-30) ug/ml Ethyl Alcohol mg/dL (<10.0) mg/dl Adenovirus (PCR) (NotDetected) B. pertussis DNA (PCR) (NotDetected) B.parapertussis DNA PCR (NotDetected) C. pneumoniae DNA (PCR) (NotDetected) Coronavirus OC43 (PCR) (NotDetected) Coronavirus HKU1 (PCR) (NotDetected) Coronavirus 229E (PCR) (NotDetected) SARS-CoV-2 (PCR) (NotDetected) Coronavirus NL63 (PCR) (NotDetected) Human Metapneumovir PCR (NotDetected) Influenza Type A (PCR) (NotDetected) Influenza Type B (PCR) (NotDetected) M. pneumoniae (PCR) (NotDetected) Parainfluenza 1 (PCR) (NotDetected) Parainfluenza 2 (PCR) (NotDetected) Parainfluenza 3 (PCR) (NotDetected) Parainfluenza 4 (PCR) (NotDetected) RSV (PCR) (NotDetected) Entero/Rhino (PCR) (NotDetected) 10/21/22 10/21/22 10/21/22 Range/Units 10:56 10:56 10:56 WBC (4.8-10.8) K/ul RBC (4.20-5.40) M/uL Hgb (12.0-16.0) g/dl Hct (37.0-47.0) % MCV (80.0-100.0) fL MCH (25.0-34.0) pg MCHC (32.0-36.0) g/dL RDW Std Deviation (36.4-46.3) fL RDW Coeff of [place] (11.5-14.5) % Plt Count (130-400) K/uL MPV (9.4-12.4) fL Immature Gran % (Auto) % Neut % (Auto) % Lymph % (Auto) % [place] % (Auto) % Eos % (Auto) % Baso % (Auto) % Neut # (Auto) (1.40-6.50) K/uL Lymph # (Auto) (1.2-3.4) K/uL [place] # (Auto) (0.11-0.59) K/uL Eos # (Auto) (0-0.50) K/uL Baso # (Auto) (0-0.2) K/uL Immature Gran # (Auto) (0.01-0.20) K/uL VBG pH 7.44 H (7.36-7.41) VBG pCO2 41 (38-50) mmHg VBG pO2 42 mmHg VBG HCO3 28 mmol/L VBG O2 Saturation 69.3 % VBG Base Excess 3.3 mEq/L Sodium (136-145) mmol/L Potassium (3.5-5.1) mmol/L Chloride (98-107) mmol/L Carbon Dioxide (21-32) mmol/L Anion Gap (3-11) BUN (6-23) mg/dl Creatinine (0.6-1.2) mg/dl Est Cr Clr Drug Dosing Est GFR ( Amer) ml/min Est GFR (Non-Af Amer) ml/min BUN/Creatinine Ratio (10-20) Glucose (70-99(Fasting)) mg/dl Lactate (0.4-2.0) mmol/L Calcium (8.6-10.3) mg/dl Magnesium (1.7-2.4) mg/dl Total Bilirubin (0.2-1.0) mg/dl Direct Bilirubin (0-0.2) mg/dl AST (13-39) U/L ALT (7-52) U/L Alkaline Phosphatase (34-104) U/L Troponin I High Sens (0-14) pg/ml B-Natriuretic Peptide (0-100) pg/ml Total Protein (6.0-8.3) gm/dl Albumin (3.4-5.0) gm/dl Procalcitonin (0-0.5) ng/ml Urine Color Urine Appearance (Clear) Urine pH (4.5-7.5) Ur Specific [place] (1.000-1.030) Urine Protein (Negative) Urine Glucose (UA) (Negative) Urine Ketones (Negative) Urine Blood (Negative) Urine Nitrite (Negative) Urine Bilirubin (Negative) Urine Urobilinogen (Negative) Ur Leukocyte Esterase (Negative) Urine WBC (Auto) (0-5) /hpf Urine RBC (Auto) (0-4) /hpf U Hyaline Cast (Auto) (0-5) /lpf U Epithel Cells (Auto) (0-5) /lpf Urine Bacteria (Auto) (Negative) Salicylates (3.0-30) mg/dl Acetaminophen (10-30) ug/ml Ethyl Alcohol mg/dL < 10.0 (<10.0) mg/dl Adenovirus (PCR) Not Detected (NotDetected) B. pertussis DNA (PCR) Not Detected (NotDetected) B.parapertussis DNA PCR Not Detected (NotDetected) C. pneumoniae DNA (PCR) Not Detected (NotDetected) Coronavirus OC43 (PCR) Not Detected (NotDetected) Coronavirus HKU1 (PCR) Not Detected (NotDetected) Coronavirus 229E (PCR) Not Detected (NotDetected) SARS-CoV-2 (PCR) Not Detected (NotDetected) Coronavirus NL63 (PCR) Not Detected (NotDetected) Human Metapneumovir PCR Not Detected (NotDetected) Influenza Type A (PCR) Not Detected (NotDetected) Influenza Type B (PCR) Not Detected (NotDetected) M. pneumoniae (PCR) Not Detected (NotDetected) Parainfluenza 1 (PCR) Not Detected (NotDetected) Parainfluenza 2 (PCR) Not Detected (NotDetected) Parainfluenza 3 (PCR) Not Detected (NotDetected) Parainfluenza 4 (PCR) Not Detected (NotDetected) RSV (PCR) Not Detected (NotDetected) Entero/Rhino (PCR) Not Detected (NotDetected) 10/21/22 Range/Units 11:23 WBC (4.8-10.8) K/ul RBC (4.20-5.40) M/uL Hgb (12.0-16.0) g/dl Hct (37.0-47.0) % MCV (80.0-100.0) fL MCH (25.0-34.0) pg MCHC (32.0-36.0) g/dL RDW Std Deviation (36.4-46.3) fL RDW Coeff of [place] (11.5-14.5) % Plt Count (130-400) K/uL MPV (9.4-12.4) fL Immature Gran % (Auto) % Neut % (Auto) % Lymph % (Auto) % [place] % (Auto) % Eos % (Auto) % Baso % (Auto) % Neut # (Auto) (1.40-6.50) K/uL Lymph # (Auto) (1.2-3.4) K/uL [place] # (Auto) (0.11-0.59) K/uL Eos # (Auto) (0-0.50) K/uL Baso # (Auto) (0-0.2) K/uL Immature Gran # (Auto) (0.01-0.20) K/uL VBG pH (7.36-7.41) VBG pCO2 (38-50) mmHg VBG pO2 mmHg VBG HCO3 mmol/L VBG O2 Saturation % VBG Base Excess mEq/L Sodium (136-145) mmol/L Potassium (3.5-5.1) mmol/L Chloride (98-107) mmol/L Carbon Dioxide (21-32) mmol/L Anion Gap (3-11) BUN (6-23) mg/dl Creatinine (0.6-1.2) mg/dl Est Cr Clr Drug Dosing Est GFR ( Amer) ml/min Est GFR (Non-Af Amer) ml/min BUN/Creatinine Ratio (10-20) Glucose (70-99(Fasting)) mg/dl Lactate (0.4-2.0) mmol/L Calcium (8.6-10.3) mg/dl Magnesium (1.7-2.4) mg/dl Total Bilirubin (0.2-1.0) mg/dl Direct Bilirubin (0-0.2) mg/dl AST (13-39) U/L ALT (7-52) U/L Alkaline Phosphatase (34-104) U/L Troponin I High Sens (0-14) pg/ml B-Natriuretic Peptide (0-100) pg/ml Total Protein (6.0-8.3) gm/dl Albumin (3.4-5.0) gm/dl Procalcitonin (0-0.5) ng/ml Urine Color Yellow Urine Appearance Clear (Clear) Urine pH 7.0 (4.5-7.5) Ur Specific [place] 1.012 (1.000-1.030) Urine Protein 1+ H (Negative) Urine Glucose (UA) Negative (Negative) Urine Ketones Negative (Negative) Urine Blood Negative (Negative) Urine Nitrite Negative (Negative) Urine Bilirubin Negative (Negative) Urine Urobilinogen Negative (Negative) Ur Leukocyte Esterase 1+ H (Negative) Urine WBC (Auto) 10-30 H (0-5) /hpf Urine RBC (Auto) 0-4 (0-4) /hpf U Hyaline Cast (Auto) 1-5 (0-5) /lpf U Epithel Cells (Auto) 10-20 H (0-5) /lpf Urine Bacteria (Auto) Negative (Negative) Salicylates (3.0-30) mg/dl Acetaminophen (10-30) ug/ml Ethyl Alcohol mg/dL (<10.0) mg/dl Adenovirus (PCR) (NotDetected) B. pertussis DNA (PCR) (NotDetected) B.parapertussis DNA PCR (NotDetected) C. pneumoniae DNA (PCR) (NotDetected) Coronavirus OC43 (PCR) (NotDetected) Coronavirus HKU1 (PCR) (NotDetected) Coronavirus 229E (PCR) (NotDetected) SARS-CoV-2 (PCR) (NotDetected) Coronavirus NL63 (PCR) (NotDetected) Human Metapneumovir PCR (NotDetected) Influenza Type A (PCR) (NotDetected) Influenza Type B (PCR) (NotDetected) M. pneumoniae (PCR) (NotDetected) Parainfluenza 1 (PCR) (NotDetected) Parainfluenza 2 (PCR) (NotDetected) Parainfluenza 3 (PCR) (NotDetected) Parainfluenza 4 (PCR) (NotDetected) RSV (PCR) (NotDetected) Entero/Rhino (PCR) (NotDetected) Administered Medications Discontinued Medications Furosemide (Furosemide 40 Mg/4 Ml Vial) 40 mg IV ONE ONE Stop: 10/21/22 11:10 Last Admin: 10/21/22 12:35 Dose: 40 mg Documented By: AP Imaging Data Radiologist's Impression: Chest X-Ray 10/21/22 10:23 XR chest 1V portable HISTORY: 77 years-old Female Sepsis acute sepsis COMPARISON: 08/26/2022 TECHNIQUE: AP view of the chest FINDINGS: Cardiac silhouette is enlarged. Median sternotomy with cardiac valvular prosthesis and left atrial exclusion device. Only vascular congestion with interstitial coarsening. No large pleural effusion. Ill-defined bibasilar airspace opacities, mildly improved on the left from prior. Degenerative changes of the shoulders and spine. IMPRESSION: 1. Cardiomegaly with suggestion of mild pulmonary edema. 2. Mild bibasilar consolidation. There is improved aeration of the left lung base compared to the 08/26/2022 exam. ACT 112: Negative or not required by law. The above report was generated using voice recognition software. It may contain grammatical, syntax or spelling errors. Electronically signed by: Tony Bradford M.D. 10/21/2022 10:[address] 10/21/22 10:24 CT head/brain wo con CLINICAL HISTORY: 77 years-old Female with altered mental status. Acutely altered mental status TECHNIQUE: Multiple axial CT images of the head were obtained without contrast. A dose lowering technique was utilized adhering to the principles of ALARA. CT DOSE: 625.80 mGy.cm COMPARISON: None. FINDINGS: No acute intracranial hemorrhage, midline shift, intra-axial mass, hydrocephalus, territorial ischemia or abnormal extra-axial collection. Involutional changes with white matter hypodensities suggestive of chronic microvascular ischemic disease. 6 mm calcification of the falx cerebri. The calvarium is intact. Right-sided lens repair. The paranasal sinuses, mastoid air cells, and middle ear cavities are clear. IMPRESSION: No acute intracranial abnormality. ACT 112: Negative or not required by law. The above report was generated using voice recognition software. It may contain grammatical, syntax or spelling errors. Electronically signed by: Tony Bradford M.D. 10/21/2022 11:37 AM Discharge Plan Visit Data Chief Complaint: Illness Stated Complaint: AMS, BI LAT LEG EDEMA, SOB ED Provider: Gladys Blanc Discharge Problem: AMS (altered mental status), Acute kidney injury superimposed on chronic kidney disease, Acute exacerbation of congestive heart failure, Non-ST elevation AL (NSTEMI), Pulmonary edema Forms Stand Alone Forms: My [facility] [employer] Prescriptions Prescriptions: No Action acetaminophen 325 mg capsule 650 mg PO QID PRN (Reason: pain) aspirin [Michael Low Dose Aspirin] 81 mg tablet,delayed release (DR/EC) 81 mg PO QPM Qty: 0 metoprolol succinate 25 mg tablet extended release 24 hr 25 mg PO HS Qty: 90 3RF allopurinol 100 mg tablet 100 mg PO DAILY Qty: 90 3RF ergocalciferol (vitamin D2) 1,250 mcg (50,000 unit) capsule 50,000 unit PO MONTHLY Qty: 4 3RF metformin 500 mg tablet extended release 24 hr 1,000 mg PO BID Qty: 360 1RF diltiazem HCl [Tiazac] 240 mg capsule,extended release 24 hr 240 mg PO QAM Qty: 90 3RF Novolin R Regular U100 Insulin 100 unit/mL solution 8 unit SQ TIDM Patient Comments: WITH SLIDING SCALE Rx Instructions: TID Novolin N NPH U-100 Insulin 100 unit/mL suspension 18 unit SQ QPM Rx Instructions: Relion brand timolol maleate 0.5 % drops, once daily 1 drp ophthalmic (eye) DAILY Rx Instructions: R EYE 1 X DAILY levothyroxine 150 mcg tablet 150 mcg PO DAILY Qty: 30 5RF Rx Instructions: Take before breakfast pravastatin 80 mg tablet 80 mg PO HS Qty: 90 3RF potassium citrate 10 mEq (1,080 mg) tablet extended release 1,080 mg PO BID Qty: 60 5RF diltiazem HCl 60 mg tablet 60 mg PO HS Qty: 90 3RF (DME) Wheelchair (Manual) Device See Rx Instructions .Route Qty: 1 0RF Rx Instructions: As directed spironolactone 25 mg tablet 25 mg PO DAILY Qty: 30 2RF Hold Instructions: ERIN bumetanide 2 mg tablet 4 mg PO BID Qty: 120 3RF Hold Instructions: ERIN azelastine 0.15 % (205.5 mcg) spray,non-aerosol 1 sprays INTNAS DAILY PRN (Reason: ALLERGIES) Rx Instructions: administer into each nostril cetirizine 10 mg tablet 10 mg PO QAM PRN (Reason: Allergy Symptoms) prednisolone acetate 1 % Drops,Suspension 1 drp OPR QID Qty: 0 0RF warfarin 2 mg tablet See Rx Instructions PO .COMPLEX Rx Instructions: orally; TAKE 1MG EVERY SATURDAY, SATURDAY, SATURDAY and 2mg x 4 days or UD per [facility] Referrals Referrals: Yamileth Salazar MD [Primary Care Provider] -
--- NOTE | 2022-10-21 10:38 | XRay Report ---
XR chest 1V portable HISTORY: 77 years-old Female Sepsis acute sepsis COMPARISON: 08/26/2022 TECHNIQUE: AP view of the chest FINDINGS: Cardiac silhouette is enlarged. Median sternotomy with cardiac valvular prosthesis and left atrial exclusion device. Only vascular co ngestion with interstitial coarsening. No large pleural effusion. Ill-defined bibasilar airspace opac ities, mildly improved on the left from prior. Degenerative changes of the shoulders and spine. IMPRESSION: 1. Cardiomegaly with suggestion of mild pulmonary edema. 2. Mild bibasilar consolidation. There is improved aeration of the left lung base compared to the 08/16 exam. ACT 112: Negative or not required by law. The above report was generated using voice recognition software. It may contain grammatical, syntax o r spelling errors. Electronically signed by: Tony Bradford M.D. 10/21/2022 10:36 AM
[2022-10-21 10:39] LABS: Basophils # (auto) 0.05 K/uL (0-0.2); Basophils % (auto) 0.6 %; Eosinophils # (auto) 0.14 K/uL (0-0.50); Eosinophils % (auto) 1.6 %; Hematocrit (blood only) 31.6 % (37.0-47.0); Hemoglobin 10.2 g/dl (12.0-16.0); Immature Granulocytes # (auto) 0.03 K/uL (0.01-0.20); Immature Granulocytes % (auto) 0.3 %; Lymphocytes # (auto) 1.37 K/uL (1.2-3.4); Lymphocytes % (auto) 15.9 %; Mean Corpuscular Hemoglobin 28.2 pg (25.0-34.0); Mean Corpuscular Hgb Conc 32.3 g/dL (32.0-36.0); Mean Corpuscular Volume 87.3 fL (80.0-100.0); Mean Platelet Volume 10.1 fL (9.4-12.4); Monocytes # (auto) 0.82 K/uL (0.11-0.59); Monocytes % (auto) 9.5 %; Neutrophils % (auto) 72.1 %; Platelet Count 197 K/uL (130-400); RDW Coefficient of Variation 16.2 % (11.5-14.5); RDW Standard Deviation 50.7 fL (36.4-46.3); Red Blood Count 3.62 M/uL (4.20-5.40); White Blood Count 8.61 K/ul (4.8-10.8)
[2022-10-21 10:44] LABS: Alanine Aminotransferase 8 U/L (7-52); Albumin Level 3.9 gm/dl (3.4-5.0); Alkaline Phosphatase 151 U/L (34-104); Anion Gap 11 (3-11); Aspartate Aminotransferase 11 U/L (13-39); BUN Creatinine Ratio 18.3 (10-20); Bilirubin Direct 0.3 mg/dl (0-0.2); Blood Urea Nitrogen 78 mg/dl (6-23); Calcium 9.6 mg/dl (8.6-10.3); Carbon Dioxide 28 mmol/L (21-32); Chloride 105 mmol/L (98-107); Est GFR (Non-African American) 9.5 ml/min; Glucose 166 mg/dl (70-99(Fasting)); Magnesium 2.7 mg/dl (1.7-2.4); Potassium 4.5 mmol/L (3.5-5.1); Sodium 144 mmol/L (136-145); Total Protein 7.4 gm/dl (6.0-8.3)
[2022-10-21 10:51] LABS: Acetaminophen < 3 ug/ml (10-30); Salicylate < 3.0 mg/dl (3.0-30); Troponin I High Sensitivity 18.4 pg/ml (0-14)
[2022-10-21 11:09] LABS: Base Excess VBG 3.3 mEq/L; HCO3 VBG 28 mmol/L; Oxygen Saturation VBG 69.3 %; PCO2 VBG 41 mmHg (38-50); PO2 VBG 42 mmHg; pH VBG 7.44 (7.36-7.41)
[2022-10-21] MEDS ORDERED: FUROSEMIDE 40 MG/4 ML VIAL IV ONE (11:09)
--- NOTE | 2022-10-21 11:40 | CT Scan Report ---
CT head/brain wo con CLINICAL HISTORY: 77 years-old Female with altered mental status. Acutely altered mental status TECHNIQUE: Multiple axial CT images of the head were obtained without contrast. A dose lowering tech nique was utilized adhering to the principles of ALARA. CT DOSE: 625.80 mGy.cm COMPARISON: None. FINDINGS: No acute intracranial hemorrhage, midline shift, intra-axial mass, hydrocephalus, territorial ischemi a or abnormal extra-axial collection. Involutional changes with white matter hypodensities suggestive of chronic microvascular ischemic disease. 6 mm calcification of the falx cerebri. The calvarium is intact. Right-sided lens repair. The paranasal sinuses, mastoid air cells, and middl e ear cavities are clear. IMPRESSION: No acute intracranial abnormality. ACT 112: Negative or not required by law. The above report was generated using voice recognition software. It may contain grammatical, syntax o r spelling errors. Electronically signed by: Tony Bradford M.D. 10/21/2022 11:37 AM
[2022-10-21 11:46] LABS: Appearance Urine Clear (Clear); Bacteria Urine Automated Negative (Negative); Bilirubin Urine Negative (Negative); Blood Urine Negative (Negative); Color Urine Yellow; Glucose Urine UA Negative (Negative); Ketones Urine Negative (Negative); Leukocyte Esterase Urine 1+ (Negative); Nitrite Urine Negative (Negative); Protein Urine 1+ (Negative); RBC Urine Automated 0-4 /hpf (0-4); Specific Gravity Urine 1.012 (1.000-1.030); Urobilinogen Urine Negative (Negative)
[2022-10-21 11:58] LABS: Adenovirus PCR Not Detected (NotDetected); Bordetella parapertussis PCR Not Detected (NotDetected); Bordetella pertussis PCR Not Detected (NotDetected); Chlamydia pneumoniae PCR Not Detected (NotDetected); Coronavirus 229E PCR Not Detected (NotDetected); Coronavirus CoV-2 (COVID19)PCR Not Detected (NotDetected); Coronavirus HKU1 PCR Not Detected (NotDetected); Coronavirus NL63 PCR Not Detected (NotDetected); Coronavirus OC43PCR Not Detected (NotDetected); Human Metapneumovirus PCR Not Detected (NotDetected); Influenza A PCR Not Detected (NotDetected); Influenza B PCR Not Detected (NotDetected); Mycoplasma pneumoniae PCR Not Detected (NotDetected); Parainfluenza Virus 1 PCR Not Detected (NotDetected); Parainfluenza Virus 2 PCR Not Detected (NotDetected); Parainfluenza Virus 3 PCR Not Detected (NotDetected); Parainfluenza Virus 4 PCR Not Detected (NotDetected); Respiratory Syncytial VirusPCR Not Detected (NotDetected); Rhinovirus/Enterovirus PCR Not Detected (NotDetected)
--- NOTE | 2022-10-21 12:45 | Electrocardiogram Report ---
Test Reason : Blood Pressure : / mmHG Vent. Rate : 111 BPM Atrial Rate : 000 BPM P-R Int : 000 ms QRS Dur : 168 ms QT Int : 364 ms P-R-T Axes : 000 -67 113 degrees QTc Int : 495 ms Atrial fibrillation with rapid ventricular response Left axis deviation Left bundle branch block Abnormal ECG When compared with ECG of 24-AUG-2022 10:07, No significant change was found Confirmed by Tim Cortes ([id number]) on 10/21/2022 12:45:33 PM Referred By: Confirmed By:Heriberto Cortes
--- NOTE | 2022-10-21 12:48 | History & Physical Report ---
Date of Service October 21, 2022 Assessment & Plan (1) Acute on chronic heart failure with preserved ejection fraction (HFpEF): Plan: Altered mental status No leukocytosis VBG 7.4 //, mild metabolic alkalosis UA uninfected appearing Urine salicylate/Tylenol/alcohol negative BioFire negative CThead: No acute finding CXR: Mild bibasilar consolidation, cardiomegaly with suspected mild pulmonary edema Procalcitonin normal found with a bowel of pills of her mixed medications unsure of which she took. She is not bradycardic and does not show signs of beta-wing toxicity or calcium channel wing toxicity. We will continue these. We will treat CHF below for the - TSH pending Acute on chronic CHF, CAD. S/p bioprosthetic AVR. S/p CABG ANDRADE to LAD. Elevated BNP, mild pulmonary edema on CXR Received Lasix in ER.we will continue Bumex BID17 Last heart failure clinic 10/16/2022. Noted to have class II3 symptoms. Was hypervolemic at that time, weight 271 pounds spironolactone 25 mg daily added, Bumex increased to 4 mg twice daily at that time. Diltiazem to 40 mg every morning extended release, 60 mg short release at bedtime continued, metoprolol 25 mg succinate continued, spironolactone held for ERIN, aspirin continued - Erythema/warmth bilaterally of the lower extremities about symmetrical, and absence of fever/chills/sweats suspect that this is chronic venous stasis dermatitis rather than infectious. If leukocytosis, fever curve up trends, CRP up trends or patient is not improving from metabolic cephalopathy with above treatments can initiate Rocephin No chest pain, chest pressure A-fib Permanent A-fib Continue beta-wing, continue diltiazem, s/p left atrial appendage clip Continue warfarin, goal INR 23 Hypothyroidism Continue Synthroid Type II DM Switch to weight-based basal bolus/inpatient Goal BSG [id number] Glucose checks AC/at bedtime DM2/heart healthy/low-sodium diet Hyperlipidemia Continue statin Hypertension Continue antihypertensives as noted ERIN on CKD Baseline creatinine previously around 1.2-1.4 Creatinine 10/18 was 3.39, on admit 4.27 with clinical volume overload Follows with nephrology as outpatient, has had adequate blood pressure control in the past Nephrology consulted on admission DVT prophylaxis: Anticoagulated Diet: Heart healthy, DM2 CODE: DNR/DNI (2) Acute metabolic encephalopathy: (3) Acute kidney injury superimposed on CKD: (4) CHF exacerbation: (5) Chronic diastolic congestive heart failure: (6) Essential hypertension: (7) S/P aortic valve replacement with bioprosthetic valve: History of Present Illness Primary Care Provider: Yamileth Salazar MD Maria A is a 77-year-old female presents with 2 days of progressively worsening confusion. Patient does not remember taking her pills in the last 2 days, was found with multiple pills in a medication bowl. History limited by confusion. Oriented to name only. Awakens easily, but does not answer quesitons appropriately. Somolent Reports she has been confused for the last day or 2 "I just feel kind of crazy ". She is aware she is confused and somnolent, and notes she feels foggy Reports that she thinks she took her morning medicines this morning but is not really sure Denies chest pain, chest pressure, abdominal pain. Is not sure if her legs are more swollen than normal, notes they tend to be red and swollen +shortness of breath. not sure how long has been going on. 'At least 23' Medical History: Reviewed Medications: Reviewed Surgical History: Reviewed Family history: Reviewed Allergies: Reviewed Social History: Reviewed in Code Status: DNR/DNI, confirmed with patient and with prior documented Allergies Allergy/AdvReac Type Severity Reaction Status Date / Time Sulfa (Sulfonamide Allergy Severe ANAPHYLAXIS Verified 10/16/22 11:38 Antibiotics) Home Medications Medication Instructions Recorded Confirmed Type aspirin 81 mg tablet,delayed 81 mg PO QPM ##0 10/19/18 10/16/22 History release (Michael Low Dose Aspirin) azelastine 205.5 mcg (0.15 %) 1 sprays intranasal DAILY PRN 10/22/18 10/16/22 History nasal spray ALLERGIES metoprolol succinate 25 mg 25 mg PO HS #90 tabs 10/25/21 10/16/22 Rx tablet,extended release 24 hr allopurinol 100 mg tablet 100 mg PO DAILY #90 tabs 04/17/22 10/16/22 Rx ergocalciferol (vitamin D2) 1,250 50,000 unit PO MONTHLY #4 caps 04/17/22 10/16/22 Rx mcg (50,000 unit) capsule diltiazem HCl 60 mg tablet 60 mg PO HS #90 tabs 04/18/22 10/16/22 Rx metformin 500 mg tablet,extended 1,000 mg PO BID #360 tabs 06/12/22 10/16/22 Rx release 24 hr diltiazem HCl 240 mg capsule,24 240 mg PO QAM #90 caps 07/05/22 10/16/22 Rx hr,extended release (Tiazac) Wheelchair (Manual) #1 ea 07/12/22 10/16/22 Rx acetaminophen 325 mg capsule 650 mg PO QID PRN pain 07/16/22 10/16/22 History cetirizine 10 mg tablet 10 mg PO QAM PRN Allergy Symptoms 08/19/22 10/16/22 History prednisolone acetate 1 % eye 1 drp OPR QID #0 mL 08/29/22 10/16/22 Rx drops,suspension insulin NPH isoph U-100 human 100 18 unit subcut QPM 09/11/22 10/16/22 History unit/mL subcutaneous suspension (Novolin N NPH U-100 Insulin isophane) insulin regular human 100 unit/mL 8 unit subcut TIDM 09/11/22 10/16/22 History injection solution (Novolin R Regular U-100 Insulin) timolol maleate 0.5 % once daily 1 drp ophthalmic (eye) DAILY 09/11/22 10/16/22 History eye drops levothyroxine 150 mcg tablet 150 mcg PO DAILY #30 tabs 09/26/22 10/16/22 Rx potassium citrate 10 mEq (1,080 1,080 mg PO BID #60 tabs 10/08/22 10/16/22 Rx mg) tablet,extended release pravastatin 80 mg tablet 80 mg PO HS #90 tabs 10/08/22 10/16/22 Rx warfarin 2 mg tablet See Rx Instructions PO .COMPLEX 10/11/22 10/16/22 History bumetanide 2 mg tablet 4 mg PO BID #120 tabs 10/16/22 10/16/22 Rx spironolactone 25 mg tablet 25 mg PO DAILY #30 tabs 10/16/22 10/16/22 Rx Past Med/Surg History Medical History A-fib On Warfarin>FOLLOWED DR. BUCIO A-fib Anemia Aortic stenosis Atrial flutter Atrial flutter CAD in [place] artery Chronic diastolic congestive heart failure Colon polyps Coronary artery disease S/P CABG x 1 with AVR 2017. Diabetes mellitus due to abnormal insulin Diabetic peripheral neuropathy Hematuria History of loop recorder Implanted AND REMOVED Hx of malignant melanoma of skin s/p simple excision Hyperlipemia Hyperlipemia Hypertension Hypothyroidism Hypothyroidism Left bundle branch block Mitral regurgitation Obesity, morbid, BMI 40.0-49.9 Pulmonary hypertension Seasonal allergies Type 2 diabetes mellitus Vitamin D deficiency Surgical History H/O aortic valve replacement 2017 [facility] - [facility] ALSO HAD CABG X1 VESSEL H/O cardiac catheterization [facility] - PRIOR TO 2017 SURGERY History of carpal tunnel release of both wrists History of colonoscopy History of partial hysterectomy History of transesophageal echocardiography ([facility]) PRIOR TO SURGERY 2017 Hx of cyst of breast s/p excision Hx of right cataract extraction Hx of tonsillectomy S/P aortic valve replacement with bioprosthetic valve S/P CABG (coronary artery bypass graft) Status post hernia repair (11/24/18) Umbilical hernia with multiple defects with surgimesh 11/24/18 Dr. Chapman [place] teeth removed Family History Mother Family history of diabetes mellitus Grandmother (Maternal) Family history of diabetes mellitus Grandmother (Paternal) Family history of diabetes mellitus Aunt Family history of diabetes mellitus Uncle Family history of diabetes mellitus Father FHx: colon cancer Other FHx: esophageal cancer FHx: heart disease No family history of adverse response to anesthesia Social History Smoking Status: Former smoker Second Hand Exposure: No; Do You Dip or Chew Tobacco: No; Hx Alcohol Use: No Hx Substance Use: No Preferred Language: Ukrainian Communication Ability: Effective Visual Impairment: No Limitations Printing Specialist Required: No Beliefs That Will Affect Care: None marital status: Current Living Situation: Spouse Feels Safe at Home: Yes caffeine: No Seatbelt Use: always Assistive Devices: Walker Review of Systems Review of Systems: All systems reviewed & are unremarkable except as noted in Subjective Physical Exam Physical Exam: General: A&Ox3. NAD. Cooperative. HEENT: Atraumatic, normocephalic. Pulm: Diminished, no wheezes. Bibasilar crackles symmetrical chest rise. No increased work of breathing. No respiratory distress. Cardiac: RRR, -mrg. Radial pulses intact and symmetrical. Abdominal: Nontender, nondistended, soft. BS present. Extremities: Pitting edema throughout the lower extremities 3+ bilaterally with chronic venous stasis changes. Erythema/warmth bilaterally of the lower extremities about symmetrical Results & Data Results & Data Vital Signs (Past 12 Hours) Vital Signs Temp Pulse Pulse Resp BP BP Pulse Ox 10/21/22 11:00 96 H 18 119/84 94 10/21/22 10:23 99 10/21/22 10:24 102 H 10/21/22 10:03 36.6 C 130 H 20 148/86 H 89 L O2 Del Method O2 Flow Rate 10/21/22 11:00 Nasal Cannula 2 10/21/22 10:23 Nasal Cannula 2 10/21/22 10:24 10/21/22 10:03 Room Air PG Care Time/CCT Total # of Minutes Spent Total Time Spent with Patient: Total time spent is greater than 50% in coordination of care (as documented) at patient's floor/unit and/or counseling patient: Coding Level of Care Code 77052 INT INP/OBS CARE 3/75MIN Diagnoses Acute on chronic heart failure with preserved ejection fraction (HFpEF) I50.33 Acute metabolic encephalopathy G93.41 Acute kidney injury superimposed on CKD N17.9; N18.9 CHF exacerbation I50.9 Chronic diastolic congestive heart failure I50.32 Essential hypertension I10 S/P aortic valve replacement with bioprosthetic valve Z95.3
[2022-10-21] MEDS ORDERED: GLUCAGON FOR INJ 1 MG VIAL SQ PRN (13:04)
[2022-10-21] MEDS ORDERED: DEXTROSE 50% 50 ML SYRINGE IV PRN (13:04)
[2022-10-21] MEDS ORDERED: CARBOHYDRATES FOR HYPOGLYCEMIA PO PRN (13:04)
[2022-10-21] MEDS ORDERED: GLUCOSE 40% GEL 15 GM TUBE PO PRN (13:04)
[2022-10-21] MEDS ORDERED: GLUCOSE 10 TAB/TUBE PO PRN (13:04)
[2022-10-21 13:43] LABS: INR 5.3 (0.9-1.1); Prothrombin Time 52.3 Seconds (9.0-12.0)
[2022-10-21 16:53] LABS: C Reactive Protein 2.81 mg/dl (0-0.5)
[2022-10-21] MEDS: INSULIN ASPART PER UNIT CHARGE SC SCH ×2 (17:21→20:51)
[2022-10-21] MEDS: BUMETANIDE 4 MG in SYRINGE 0 ML IV SCH (17:22)
[2022-10-21 17:29] LABS: Troponin I High Sensitivity 19.1 pg/ml (0-14)
[2022-10-21] MEDS: METOPROLOL SUCC 25MG EXT REL TAB PO SCH (18:02)
[2022-10-21] MEDS ORDERED: NALOXONE HCL 0.4 MG/1 ML VIAL/CARP IV STA (19:45)
[2022-10-21] MEDS: dilTIAZem HCl 60 MG TAB PO SCH (20:41)
[2022-10-21] MEDS: ASPIRIN 81 MG ECTAB PO SCH (20:41)
[2022-10-21] MEDS: PRAVASTATIN SOD 40 MG TAB PO SCH (20:41)
[2022-10-21] MEDS: LANTUS PER UNIT CHARGE SQ SCH (20:51)
[2022-10-21] MEDS ORDERED: METOPROLOL SUCC 25MG EXT REL TAB PO SCH (21:00)
[2022-10-22 03:53] LABS: BUN Creatinine Ratio 17.5 (10-20); C Reactive Protein 3.73 mg/dl (0-0.5); Calcium 9.4 mg/dl (8.6-10.3); Creatinine Clr Calc Pharmacy 15.5 ml/min; Est GFR (African American) 11.2 ml/min; Est GFR (Non-African American) 9.6 ml/min; Potassium 3.9 mmol/L (3.5-5.1)
[2022-10-22 04:05] LABS: Basophils # (auto) 0.05 K/uL (0-0.2); Basophils % (auto) 0.6 %; Eosinophils # (auto) 0.14 K/uL (0-0.50); Eosinophils % (auto) 1.6 %; Hematocrit (blood only) 29.7 % (37.0-47.0); Hemoglobin 9.4 g/dl (12.0-16.0); Immature Granulocytes # (auto) 0.03 K/uL (0.01-0.20); Immature Granulocytes % (auto) 0.3 %; Lymphocytes # (auto) 1.28 K/uL (1.2-3.4); Lymphocytes % (auto) 14.4 %; Mean Corpuscular Hgb Conc 31.6 g/dL (32.0-36.0); Mean Corpuscular Volume 88.4 fL (80.0-100.0); Mean Platelet Volume 10.1 fL (9.4-12.4); Monocytes # (auto) 0.82 K/uL (0.11-0.59); Monocytes % (auto) 9.2 %; Neutrophils # (auto) 6.57 K/uL (1.40-6.50); Neutrophils % (auto) 73.9 %; Platelet Count 182 K/uL (130-400); RDW Coefficient of Variation 16.1 % (11.5-14.5); RDW Standard Deviation 51.8 fL (36.4-46.3); Red Blood Count 3.36 M/uL (4.20-5.40); White Blood Count 8.89 K/ul (4.8-10.8)
[2022-10-22 04:20] LABS: Prothrombin Time 66.9 Seconds (9.0-12.0)
[2022-10-22 04:27] LABS: INR 6.9 (0.9-1.1)
[2022-10-22] MEDS: LEVOTHYROXINE SODIUM 150 MCG TABLET PO SCH (06:02)
[2022-10-22] MEDS: INSULIN ASPART PER UNIT CHARGE SC SCH ×4 (08:15→21:23)
[2022-10-22] MEDS: allopurinoL 100 MG TAB PO SCH (08:16)
[2022-10-22] MEDS: LANTUS PER UNIT CHARGE SQ SCH ×2 (08:16→21:25)
[2022-10-22] MEDS: BUMETANIDE 4 MG in SYRINGE 0 ML IV SCH (08:16)
[2022-10-22] MEDS: dilTIAZem HCL 240 MG CAPCR PO SCH (08:16)
--- NOTE | 2022-10-22 09:35 | Nephrology Consultation ---
Date of Consultation October 22, 2022 Assessment & Plan (1) AMS (altered mental status): Etiology unclear. CT reassuring. No obvious infection. No culprit medications identified. No focal neurologic findings on a limited exam. Will defer additional evaluation to the hospitalist team. (2) Acute kidney injury superimposed on chronic kidney disease: Non-oliguric. Bumex is being provided to encourage diuresis. Notable fluid retention noted. Clinical presentation suggestive of acute on chronic CRS with predominately signs of R heart failure. Urine notable for WBC's. Culture pending. Repeat imaging deferred pending additional monitoring. Medications appropriately dosed for kidney dysfunction. Spironolactone, potassium citrate, and metformin. Thankfully, there is no emergent indication for STERILE PROCESS TECH. Electrolytes have been acceptable. Unfortunately, the patient is a poor candidate for fpc STERILE PROCESS TECH wtih dialysis if needed due to medical comorbidities. Repeat labs have been requested. (3) Acute exacerbation of congestive heart failure: Diuresing with Bumex 4 mg IV. Bumex 4 mg BID has been ordered. Document strict I/O's. Low sodium diet and maintain fluid restriction of <1.5 L/d. (4) Chronic kidney disease with active medical management without dialysis, stage 3 (moderate): Followed by Dr. Alicea as outpatient. Baseline creatinine ~1.5 mg/dL. 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 History of Present Illness Reason for Consultation: Vel ckd, chf Requesting Physician: Ron Hoffmann MD Attending Physician: Keith Mondragon MD History of Present Illness Mrs Maria A Bernabe is a 77-year-old female with coronary artery disease status post CABG x 1, severe aortic stenosis status post bioprosthetic aortic valve replacement (2017), heart failure with preserved EF, atrial fibrillation/flut ter, venous insufficiency, diabetes, hypertension, CKD, and dyslipidemia. She follows in the [facility] nephrology clinic with Dr. Alicea for a history of CKD and nephrolithiasis. Maria A follows with Dr. Bucio in the cardiology clinic as well as with Ria Clark PA-C in the heart failure clinic. I met Maria A in August during a recent admission to [facility]. At that time, she had presented to the ospital with respiratory distress and mental status changes. Evaluation demonstrated acute on chronic HFpEF, left-sided opacification on chest x-ray with suspected aspiration pneumonia, and Coumadin toxicity. She was treated with antibiotics and diuretics with clinical improvement. Maria A was discharged to [facility] where she completed rehab prior to returning home. She had follow up in the nephrology clinic with Dr. Alicea at the end of September. At that time, she had some increased fluid retention in her legs but otherwise appeared to be doing well. Following the recent hospitalization, creatinine had stabilized at ~1.4-1.7 mg/dL. Urine has been benign and PCR 0.1. CKD attributed to DKD and microvascular changes. Maria A unfortunately had increased fluid retention. During follow up in the cardiology clinic ~1 week ago, Bumex was increased from 3 mg twice daily to 4 mg twice daily and spironolactone 25 mg daily was added. Prior baseline dry weight had been ~116 lbs. Maria A presented to the ER yesterday with signs of progressive fluid retention and concerning mental status changes. Her INR was again notably elevated and concerns were expressed regarding whether she was taking medications appropriately at home. She was found to be notably volume overloaded on admission and IV diuretics were provided. CXR and CT head reviewed. No focal neurologic deficits were appreciated and thankfully CT head did not demonstrate any acute findings. Chronic ischemic microvascular changes are appreciated. Maria A remains in rate controlled atrial fibrillation. She has had good urine output overnight. BP is acceptable. She is oxygenating appropriately on room air without signs of respiratory distress. She is afebrile. Unfortunately, she remains confused. The patient was seen and evaluated in her hospital room this morning. She was resenting comfortably in a recliner. She remembers Dr. Alicea by name. She did not recognize me or remember any events from her recent hospitalization. Maria A was not able to tell me why she was at the hospital. She expressed frustration regarding her difficulty answering questions. She did tell me that she is having difficulty communicating and organizing her thoughts. She recognizes that she is having mental lapses. She is oriented to self and place (hospital) but not to time. Initially when I entered her room, she was sleeping soundly and it took her several minutes to orient to her location. She did tell me that she is retaining fluid. She spent most of our conversation repeating questions including "why am I in the hospital?". Allergies Allergy/AdvReac Type Severity Reaction Status Date / Time Sulfa (Sulfonamide Allergy Severe ANAPHYLAXIS Verified 10/16/22 11:38 Antibiotics) Home Medications Medication Instructions Recorded Confirmed Type aspirin 81 mg tablet,delayed 81 mg PO QPM ##0 10/19/18 10/16/22 History release (Michael Low Dose Aspirin) azelastine 205.5 mcg (0.15 %) 1 sprays intranasal DAILY PRN 10/22/18 10/16/22 History nasal spray ALLERGIES metoprolol succinate 25 mg 25 mg PO HS #90 tabs 10/25/21 10/21/22 Rx tablet,extended release 24 hr allopurinol 100 mg tablet 100 mg PO DAILY #90 tabs 04/17/22 10/21/22 Rx diltiazem HCl 60 mg tablet 60 mg PO HS #90 tabs 04/18/22 10/21/22 Rx metformin 500 mg tablet,extended 1,000 mg PO BID #360 tabs 06/12/22 10/21/22 Rx release 24 hr diltiazem HCl 240 mg capsule,24 240 mg PO QAM #90 caps 07/05/22 10/21/22 Rx hr,extended release (Tiazac) Wheelchair (Manual) #1 ea 07/12/22 10/16/22 Rx acetaminophen 325 mg capsule 650 mg PO QID PRN pain 07/16/22 10/16/22 History cetirizine 10 mg tablet 10 mg PO QAM PRN Allergy Symptoms 08/19/22 10/16/22 History insulin NPH isoph U-100 human 100 18 unit subcut QPM 09/11/22 10/16/22 History unit/mL subcutaneous suspension (Novolin N NPH U-100 Insulin isophane) insulin regular human 100 unit/mL 8 unit subcut TIDM 09/11/22 10/16/22 History injection solution (Novolin R Regular U-100 Insulin) timolol maleate 0.5 % once daily 1 drp ophthalmic (eye) DAILY 09/11/22 10/21/22 History eye drops levothyroxine 150 mcg tablet 150 mcg PO DAILY #30 tabs 09/26/22 10/21/22 Rx potassium citrate 10 mEq (1,080 1,080 mg PO BID #60 tabs 10/08/22 10/21/22 Rx mg) tablet,extended release pravastatin 80 mg tablet 80 mg PO HS #90 tabs 10/08/22 10/21/22 Rx warfarin 2 mg tablet See Rx Instructions PO .COMPLEX 10/11/22 10/21/22 History bumetanide 2 mg tablet 4 mg PO BID #120 tabs 10/16/22 10/21/22 Rx spironolactone 25 mg tablet 25 mg PO DAILY #30 tabs 10/16/22 10/21/22 Rx ergocalciferol (vitamin D2) 1,250 0 unit PO MONTHLY 10/21/22 10/21/22 History mcg (50,000 unit) capsule Patient History Medical History A-fib On Warfarin>FOLLOWED DR. BUCIO A-fib Anemia Aortic stenosis Atrial flutter Atrial flutter CAD in [place] artery Chronic diastolic congestive heart failure Colon polyps Coronary artery disease S/P CABG x 1 with AVR 2017. Diabetes mellitus due to abnormal insulin Diabetic peripheral neuropathy Hematuria History of loop recorder Implanted AND REMOVED Hx of malignant melanoma of skin s/p simple excision Hyperlipemia Hyperlipemia Hypertension Hypothyroidism Hypothyroidism Left bundle branch block Mitral regurgitation Obesity, morbid, BMI 40.0-49.9 Pulmonary hypertension Seasonal allergies Type 2 diabetes mellitus Vitamin D deficiency Surgical History H/O aortic valve replacement 2017 [facility] - [facility]OVINE ALSO HAD CABG X1 VESSEL H/O cardiac catheterization [facility] - PRIOR TO 2017 SURGERY History of carpal tunnel release of both wrists History of colonoscopy History of partial hysterectomy History of transesophageal echocardiography ([facility]) PRIOR TO SURGERY 2016 Hx of cyst of breast s/p excision Hx of right cataract extraction Hx of tonsillectomy S/P aortic valve replacement with bioprosthetic valve S/P CABG (coronary artery bypass graft) Status post hernia repair (11/24/18) Umbilical hernia with multiple defects with surgimesh 11/24/18 Dr. Ari Morfindom teeth removed Family History Mother Family history of diabetes mellitus Grandmother (Maternal) Family history of diabetes mellitus Grandmother (Paternal) Family history of diabetes mellitus Aunt Family history of diabetes mellitus Uncle Family history of diabetes mellitus Father FHx: colon cancer Other FHx: esophageal cancer FHx: heart disease No family history of adverse response to anesthesia Social History Smoking Status: Never smoker Second Hand Exposure: No; Do You Dip or Chew Tobacco: No; Hx Alcohol Use: No Hx Substance Use: No Preferred Language: Kazakh Communication Ability: Effective Visual Impairment: No Limitations Resource Center Teacher Required: No Beliefs That Will Affect Care: None marital status: Current Living Situation: Spouse Other Information That Helps Us Care for You: No Feels Safe at Home: Yes caffeine: No Seatbelt Use: always Assistive Devices: Walker Review of Systems Review of Systems: All systems reviewed & are unremarkable except as noted in HPI & below Physical Exam Constitutional: well developed and + morbidly obese; no acute distress Eyes: no scleral abnormality and no corneal abnormality ENMT: Mouth: + dry oral mucous membranes; no oral mucosal abnormality Neck: normal visual inspection, trachea midline and + thick neck Respiratory: normal respiratory effort Auscultation: + diminished lung sounds and + rales (bibasilar) Cardiovascular: Rate/Rhythm: regular rate Heart Sounds: normal S1 and luciano l S2 Extremities: + edema (4+ pitting BL LE with chronic changes) Musculoskeletal: Extremities: no cyanosis and no clubbing Skin: normal turgor; no jaundice Neurologic: Motor/Sensory: no tremor and no asterixis Psychiatric: Orientation: alert; + not oriented x 3 Results & Data Vital Signs (Past 12 Hours) Vital Signs Temp Pulse Pulse Resp BP Pulse Ox O2 Del Method 10/22/22 07:54 95 H 10/22/22 07:43 36.8 C 98 H 22 106/76 95 Nasal Cannula 10/22/22 04:07 36.7 C 87 20 129/81 94 Nasal Cannula 10/22/22 00:00 92 H 10/21/22 23:33 37.0 C 90 20 128/69 95 Nasal Cannula O2 Flow Rate 10/22/22 07:54 10/22/22 07:43 3.0 10/22/22 04:07 1 10/22/22 00:00 10/21/22 23:33 1 Laboratory Results Laboratory Results - last 24 hr 10/21/22 10/21/22 10/21/22 10:05 10:05 10:05 WBC 8.61 RBC 3.62 L Hgb 10.2 L Hct 31.6 L MCV 87.3 MCH 28.2 MCHC 32.3 RDW Std Deviation 50.7 H RDW Coeff of [place] 16.2 H Plt Count 197 MPV 10.1 Immature Gran % (Auto) 0.3 Neut % (Auto) 72.1 Lymph % (Auto) 15.9 [place] % (Auto) 9.5 Eos % (Auto) 1.6 Baso % (Auto) 0.6 Neut # (Auto) 6.20 Lymph # (Auto) 1.37 [place] # (Auto) 0.82 H Eos # (Auto) 0.14 Baso # (Auto) 0.05 Immature Gran # (Auto) 0.03 PT INR VBG pH VBG pCO2 VBG pO2 VBG HCO3 VBG O2 Saturation VBG Base Excess Sodium 144 Potassium 4.5 Chloride 105 Carbon Dioxide 28 Anion Gap 11 BUN 78 H Creatinine 4.27 H Est Cr Clr Drug Dosing Not Reportable Est GFR ( Amer) 11.0 Est GFR (Non-Af Amer) 9.5 BUN/Creatinine Ratio 18.3 Glucose 166 H POC Glucose Lactate Calcium 9.6 Magnesium 2.7 H Total Bilirubin 1.0 Direct Bilirubin 0.3 H AST 11 L ALT 8 Alkaline Phosphatase 151 H Troponin I High Sens 18.4 H C-Reactive Protein B-Natriuretic Peptide Total Protein 7.4 Albumin 3.9 Procalcitonin 0.12 Urine Color Urine Appearance Urine pH Ur Specific [place] Urine Protein Urine Glucose (UA) Urine Ketones Urine Blood Urine Nitrite Urine Bilirubin Urine Urobilinogen Ur Leukocyte Esterase Urine WBC (Auto) Urine RBC (Auto) U Hyaline Cast (Auto) U Epithel Cells (Auto) Urine Bacteria (Auto) Salicylates Acetaminophen Ethyl Alcohol mg/dL Adenovirus (PCR) B. pertussis DNA (PCR) B.parapertussis DNA PCR C. pneumoniae DNA (PCR) Coronavirus OC43 (PCR) Coronavirus HKU1 (PCR) Coronavirus 229E (PCR) SARS-CoV-2 (PCR) Coronavirus NL63 (PCR) Human Metapneumovir PCR Influenza Type A (PCR) Influenza Type B (PCR) M. pneumoniae (PCR) Parainfluenza 1 (PCR) Parainfluenza 2 (PCR) Parainfluenza 3 (PCR) Parainfluenza 4 (PCR) RSV (PCR) Entero/Rhino (PCR) 10/21/22 10/21/2223 10:05 10:05 10:05 WBC RBC Hgb Hct MCV MCH MCHC RDW Std Deviation RDW Coeff of [place] Plt Count MPV Immature Gran % (Auto) Neut % (Auto) Lymph % (Auto) [place] % (Auto) Eos % (Auto) Baso % (Auto) Neut # (Auto) Lymph # (Auto) [place] # (Auto) Eos # (Auto) Baso # (Auto) Immature Gran # (Auto) PT 52.3 H INR 5.3 H VBG pH VBG pCO2 VBG pO2 VBG HCO3 VBG O2 Saturation VBG Base Excess Sodium Potassium Chloride Carbon Dioxide Anion Gap BUN Creatinine Est Cr Clr Drug Dosing Est GFR ( Amer) Est GFR (Non-Af Amer) BUN/Creatinine Ratio Glucose POC Glucose Lactate Calcium Magnesium Total Bilirubin Direct Bilirubin AST ALT Alkaline Phosphatase Troponin I High Sens C-Reactive Protein B-Natriuretic Peptide 759 H Total Protein Albumin Procalcitonin Urine Color Urine Appearance Urine pH Ur Specific [place] Urine Protein Urine Glucose (UA) Urine Ketones Urine Blood Urine Nitrite Urine Bilirubin Urine Urobilinogen Ur Leukocyte Esterase Urine WBC (Auto) Urine RBC (Auto) U Hyaline Cast (Auto) U Epithel Cells (Auto) Urine Bacteria (Auto) Salicylates < 3.0 L Acetaminophen < 3 L Ethyl Alcohol mg/dL Adenovirus (PCR) B. pertussis DNA (PCR) B.parapertussis DNA PCR C. pneumoniae DNA (PCR) Coronavirus OC43 (PCR) Coronavirus HKU1 (PCR) Coronavirus 229E (PCR) SARS-CoV-2 (PCR) Coronavirus NL63 (PCR) Human Metapneumovir PCR Influenza Type A (PCR) Influenza Type B (PCR) M. pneumoniae (PCR) Parainfluenza 1 (PCR) Parainfluenza 2 (PCR) Parainfluenza 3 (PCR) Parainfluenza 4 (PCR) RSV (PCR) Entero/Rhino (PCR) 10/21/22 10/21/22 10/21/22 10:56 10:56 10:56 WBC RBC Hgb Hct MCV MCH MCHC RDW Std Deviation RDW Coeff of [place] Plt Count MPV Immature Gran % (Auto) Neut % (Auto) Lymph % (Auto) [place] % (Auto) Eos % (Auto) Baso % (Auto) Neut # (Auto) Lymph # (Auto) [place] # (Auto) Eos # (Auto) Baso # (Auto) Immature Gran # (Auto) PT INR VBG pH 7.44 H VBG pCO2 41 VBG pO2 42 VBG HCO3 28 VBG O2 Saturation 69.3 VBG Base Excess 3.3 Sodium Potassium Chloride Carbon Dioxide Anion Gap BUN Creatinine Est Cr Clr Drug Dosing Est GFR ( Amer) Est GFR (Non-Af Amer) BUN/Creatinine Ratio Glucose POC Glucose Lactate 1.3 Calcium Magnesium Total Bilirubin Direct Bilirubin AST ALT Alkaline Phosphatase Troponin I High Sens C-Reactive Protein B-Natriuretic Peptide Total Protein Albumin Procalcitonin Urine Color Urine Appearance Urine pH Ur Specific [place] Urine Protein Urine Glucose (UA) Urine Ketones Urine Blood Urine Nitrite Urine Bilirubin Urine Urobilinogen Ur Leukocyte Esterase Urine WBC (Auto) Urine RBC (Auto) U Hyaline Cast (Auto) U Epithel Cells (Auto) Urine Bacteria (Auto) Salicylates Acetaminophen Ethyl Alcohol mg/dL < 10.0 Adenovirus (PCR) B. pertussis DNA (PCR) B.parapertussis DNA PCR C. pneumoniae DNA (PCR) Coronavirus OC43 (PCR) Coronavirus HKU1 (PCR) Coronavirus 229E (PCR) SARS-CoV-2 (PCR) Coronavirus NL63 (PCR) Human Metapneumovir PCR Influenza Type A (PCR) Influenza Type B (PCR) M. pneumoniae (PCR) Parainfluenza 1 (PCR) Parainfluenza 2 (PCR) Parainfluenza 3 (PCR) Parainfluenza 4 (PCR) RSV (PCR) Entero/Rhino (PCR) 10/21/22 10/21/22 10/21/22 10:56 11:23 16:17 WBC RBC Hgb Hct MCV MCH MCHC RDW Std Deviation RDW Coeff of [place] Plt Count MPV Immature Gran % (Auto) Neut % (Auto) Lymph % (Auto) [place] % (Auto) Eos % (Auto) Baso % (Auto) Neut # (Auto) Lymph # (Auto) [place] # (Auto) Eos # (Auto) Baso # (Auto) Immature Gran # (Auto) PT INR VBG pH VBG pCO2 VBG pO2 VBG HCO3 VBG O2 Saturation VBG Base Excess Sodium Potassium Chloride Carbon Dioxide Anion Gap BUN Creatinine Est Cr Clr Drug Dosing Est GFR ( Amer) Est GFR (Non-Af Amer) BUN/Creatinine Ratio Glucose POC Glucose Lactate Calcium Magnesium Total Bilirubin Direct Bilirubin AST ALT Alkaline Phosphatase Troponin I High Sens 19.1 H C-Reactive Protein 2.81 H B-Natriuretic Peptide Total Protein Albumin Procalcitonin Urine Color Yellow Urine Appearance Clear Urine pH 7.0 Ur Specific [place] 1.012 Urine Protein 1+ H Urine Glucose (UA) Negative Urine Ketones Negative Urine Blood Negative Urine Nitrite Negative Urine Bilirubin Negative Urine Urobilinogen Negative Ur Leukocyte Esterase 1+ H Urine WBC (Auto) 10-30 H Urine RBC (Auto) 0-4 U Hyaline Cast (Auto) 1-5 U Epithel Cells (Auto) 10-20 H Urine Bacteria (Auto) Negative Salicylates Acetaminophen Ethyl Alcohol mg/dL Adenovirus (PCR) Not Detected B. pertussis DNA (PCR) Not Detected B.parapertussis DNA PCR Not Detected C. pneumoniae DNA (PCR) Not Detected Coronavirus OC43 (PCR) Not Detected Coronavirus HKU1 (PCR) Not Detected Coronavirus 229E (PCR) Not Detected SARS-CoV-2 (PCR) Not Detected Coronavirus NL63 (PCR) Not Detected Human Metapneumovir PCR Not Detected Influenza Type A (PCR) Not Detected Influenza Type B (PCR) Not Detected M. pneumoniae (PCR) Not Detected Parainfluenza 1 (PCR) Not Detected Parainfluenza 2 (PCR) Not Detected Parainfluenza 3 (PCR) Not Detected Parainfluenza 4 (PCR) Not Detected RSV (PCR) Not Detected Entero/Rhino (PCR) Not Detected 10/21/22 10/21/22 10/22/22 16:29 20:31 03:20 WBC RBC Hgb Hct MCV MCH MCHC RDW Std Deviation RDW Coeff of [place] Plt Count MPV Immature Gran % (Auto) Neut % (Auto) Lymph % (Auto) [place] % (Auto) Eos % (Auto) Baso % (Auto) Neut # (Auto) Lymph # (Auto) [place] # (Auto) Eos # (Auto) Baso # (Auto) Immature Gran # (Auto) PT INR VBG pH VBG pCO2 VBG pO2 VBG HCO3 VBG O2 Saturation VBG Base Excess Sodium 144 Potassium 3.9 Chloride 106 Carbon Dioxide 28 Anion Gap 10 BUN 74 H Creatinine 4.23 H Est Cr Clr Drug Dosing 15.5 Est GFR ( Amer) 11.2 Est GFR (Non-Af Amer) 9.6 BUN/Creatinine Ratio 17.5 Glucose 130 H POC Glucose 163 H 116 H Lactate Calcium 9.4 Magnesium Total Bilirubin Direct Bilirubin AST ALT Alkaline Phosphatase Troponin I High Sens 23.0 H C-Reactive Protein 3.73 H B-Natriuretic Peptide Total Protein Albumin Procalcitonin Urine Color Urine Appearance Urine pH Ur Specific [place] Urine Protein Urine Glucose (UA) Urine Ketones Urine Blood Urine Nitrite Urine Bilirubin Urine Urobilinogen Ur Leukocyte Esterase Urine WBC (Auto) Urine RBC (Auto) U Hyaline Cast (Auto) U Epithel Cells (Auto) Urine Bacteria (Auto) Salicylates Acetaminophen Ethyl Alcohol mg/dL Adenovirus (PCR) B. pertussis DNA (PCR) B.parapertussis DNA PCR C. pneumoniae DNA (PCR) Coronavirus OC43 (PCR) Coronavirus HKU1 (PCR) Coronavirus 229E (PCR) SARS-CoV-2 (PCR) Coronavirus NL63 (PCR) Human Metapneumovir PCR Influenza Type A (PCR) Influenza Type B (PCR) M. pneumoniae (PCR) Parainfluenza 1 (PCR) Parainfluenza 2 (PCR) Parainfluenza 3 (PCR) Parainfluenza 4 (PCR) RSV (PCR) Entero/Rhino (PCR) 10/22/22 10/22/22 10/22/22 03:20 03:20 07:17 WBC 8.89 RBC 3.36 L Hgb 9.4 L Hct 29.7 L MCV 88.4 MCH 28.0 MCHC 31.6 L RDW Std Deviation 51.8 H RDW Coeff of [place] 16.1 H Plt Count 182 MPV 10.1 Immature Gran % (Auto) 0.3 Neut % (Auto) 73.9 Lymph % (Auto) 14.4 [place] % (Auto) 9.2 Eos % (Auto) 1.6 Baso % (Auto) 0.6 Neut # (Auto) 6.57 H Lymph # (Auto) 1.28 [place] # (Auto) 0.82 H Eos # (Auto) 0.14 Baso # (Auto) 0.05 Immature Gran # (Auto) 0.03 PT 66.9 H INR 6.9 H* VBG pH VBG pCO2 VBG pO2 VBG HCO3 VBG O2 Saturation VBG Base Excess Sodium Potassium Chloride Carbon Dioxide Anion Gap BUN Creatinine Est Cr Clr Drug Dosing Est GFR ( Amer) Est GFR (Non-Af Amer) BUN/Creatinine Ratio Glucose POC Glucose 131 H Lactate Calcium Magnesium Total Bilirubin Direct Bilirubin AST ALT Alkaline Phosphatase Troponin I High Sens C-Reactive Protein B-Natriuretic Peptide Total Protein Albumin Procalcitonin Urine Color Urine Appearance Urine pH Ur Specific [place] Urine Protein Urine Glucose (UA) Urine Ketones Urine Blood Urine Nitrite Urine Bilirubin Urine Urobilinogen Ur Leukocyte Esterase Urine WBC (Auto) Urine RBC (Auto) U Hyaline Cast (Auto) U Epithel Cells (Auto) Urine Bacteria (Auto) Salicylates Acetaminophen Ethyl Alcohol mg/dL Adenovirus (PCR) B. pertussis DNA (PCR) B.parapertussis DNA PCR C. pneumoniae DNA (PCR) Coronavirus OC43 (PCR) Coronavirus HKU1 (PCR) Coronavirus 229E (PCR) SARS-CoV-2 (PCR) Coronavirus NL63 (PCR) Human Metapneumovir PCR Influenza Type A (PCR) Influenza Type B (PCR) M. pneumoniae (PCR) Parainfluenza 1 (PCR) Parainfluenza 2 (PCR) Parainfluenza 3 (PCR) Parainfluenza 4 (PCR) RSV (PCR) Entero/Rhino (PCR) 10/22/22 09:02 WBC RBC Hgb Hct MCV MCH MCHC RDW Std Deviation RDW Coeff of [place] Plt Count MPV Immature Gran % (Auto) Neut % (Auto) Lymph % (Auto) [place] % (Auto) Eos % (Auto) Baso % (Auto) Neut # (Auto) Lymph # (Auto) [place] # (Auto) Eos # (Auto) Baso # (Auto) Immature Gran # (Auto) PT INR VBG pH VBG pCO2 VBG pO2 VBG HCO3 VBG O2 Saturation VBG Base Excess Sodium Potassium Chloride Carbon Dioxide Anion Gap BUN Creatinine Est Cr Clr Drug Dosing Est GFR ( Amer) Est GFR (Non-Af Amer) BUN/Creatinine Ratio Glucose POC Glucose Lactate Calcium Magnesium Total Bilirubin Direct Bilirubin AST ALT Alkaline Phosphatase Troponin I High Sens Pending C-Reactive Protein B-Natriuretic Peptide Total Protein Albumin Procalcitonin Urine Color Urine Appearance Urine pH Ur Specific [place] Urine Protein Urine Glucose (UA) Urine Ketones Urine Blood Urine Nitrite Urine Bilirubin Urine Urobilinogen Ur Leukocyte Esterase Urine WBC (Auto) Urine RBC (Auto) U Hyaline Cast (Auto) U Epithel Cells (Auto) Urine Bacteria (Auto) Salicylates Acetaminophen Ethyl Alcohol mg/dL Adenovirus (PCR) B. pertussis DNA (PCR) B.parapertussis DNA PCR C. pneumoniae DNA (PCR) Coronavirus OC43 (PCR) Coronavirus HKU1 (PCR) Coronavirus 229E (PCR) SARS-CoV-2 (PCR) Coronavirus NL63 (PCR) Human Metapneumovir PCR Influenza Type A (PCR) Influenza Type B (PCR) M. pneumoniae (PCR) Parainfluenza 1 (PCR) Parainfluenza 2 (PCR) Parainfluenza 3 (PCR) Parainfluenza 4 (PCR) RSV (PCR) Entero/Rhino (PCR) Diagnostic Findings XR chest 1V portable Median sternotomy with cardiac valvular prosthesis and left atrial exclusion device. Only vascular congestion with interstitial coarsening. No large pleural effusion. Ill-defined bibasilar airspace opacities, mildly improved on the left from prior. Degenerative changes of the shoulders and spine. IMPRESSION: 1. Cardiomegaly with suggestion of mild pulmonary edema. 2. Mild bibasilar consolidation. There is improved aeration of the left lung base compared to the 08/26/2022 exam. PG Care Time/CCT Total # of Minutes Spent Total Time Spent with Patient: Total time spent is greater than 50% in coordination of care (as documented) at patient's floor/unit and/or counseling patient: Coding Level of Care Code 45843 IN/OBS CONSULT LVL 4,60M Diagnoses AMS (altered mental status) R41.82 Acute kidney injury superimposed on chronic kidney disease N17.9; N18.9 Acute exacerbation of congestive heart failure I50.9 Chronic kidney disease with active medical management without dialysis, stage 3 (moderate) N18.30
[2022-10-22] MEDS ORDERED: PHYTONADIONE 5 MG in DEXTROSE 5% 50 ML IV ONE (11:00)
[2022-10-22] MEDS: ACETAMINOPHEN 325 MG TAB PO PRN (14:02)
--- NOTE | 2022-10-22 14:18 | Ultrasound Report ---
RENAL ULTRASOUND HISTORY: acute renal failure COMPARISON: Renal ultrasound 08/20/2022. FINDINGS: Right kidney: 14.3 cm. No hydronephrosis. Mild cortical thinning and increased cortical echogenicity again noted. Left kidney: 11.8 cm. No hydronephrosis. Mild cortical thinning and increased cortical echogenicity a gain noted. Bladder: No bladder wall thickening. IMPRESSION: 1. No hydronephrosis. 2. Findings suggestive of chronic medical renal disease. This is similar to the prior study. ACT 112: Negative or not required by law. Electronically signed by: Kevyn Rojas M.D. 10/22/2022 2:16 PM
[2022-10-22] MEDS: SODIUM CHLORIDE 0.9% 1000ML 1,000 ML IV SCH (14:57)
[2022-10-22] MEDS ORDERED: WARFARIN SOD 1 MG TAB PO SCH (16:00)
--- NOTE | 2022-10-22 16:14 | Hospitalist Progress Note ---
Date of Service October 22, 2022 Assessment & Plan (1) Acute on chronic heart failure with preserved ejection fraction (HFpEF): Plan: Ruled out. She is actually intravascularly volume depleted. Intravenous Bumex has been stopped. She is now on IV fluids at a judicious rate. We will monitor intake and output and monitor renal function. (2) Acute metabolic encephalopathy: Plan: Present on admission. Now resolved (3) Acute kidney injury superimposed on CKD: Plan: Parenteral diuretics discontinued. She is now on IV fluids at a judicious rate. Monitor intake and output. Serial labs. Appreciate nephrology consultation and recommendations. Renal ultrasound report pending (4) Chronic diastolic congestive heart failure: Plan: Spironolactone was recently added and her Bumex dosage was increased in the outpatient clinic. Unfortunately, this apparently has resulted in intravascular volume depletion and acute renal failure (5) Essential hypertension: Plan: Stable. Continue current medical manage (6) S/P aortic valve replacement with bioprosthetic valve: Plan: Stable. Continue current medical management Plan Will order OT and PT evaluations tomorrow, October 23. She may need SNF placement before she can return home Admission and Anticipated Discharge Date Admission Date: October 21, 2022 Subjective Alert and oriented. Tearful at times. Creatinine has risen to 4.2. She appears to be intravascularly volume depleted despite her chronic peripheral edema which does not appear to be due to exacerbation of CHF. Parenteral Bumex has been stopped. She needs IV fluids at this point which have been ordered. Renal ultrasound also ordered to make sure were not missing any obstructive nephropathy. Serum osmolarity is markedly elevated at 326. She was seen again a short while ago and she feels better since IV fluids have been started. We will obtain daily lab work. She also received intravenous vitamin K today for her INR which has risen to 6.9. Thankfully, there is no evidence of GI bleeding. Coumadin is on hold. Review of Systems Review of Systems: Constitutional-no fever or chills ENT-no blurred vision, no double vision, no epistaxis, no sore throat. Xerostomia Respiratory-no cough, no wheezing, no shortness of breath Cardiac-no palpitations, no chest pain, no syncope GI-no nausea, vomiting, diarrhea, melena, hematochezia -no urinary retention, no urinary incontinence, no dysuria, no hematuria Musculoskeletal-chronic peripheral edema from chronic venous stasis Skin-no bruising, no rashes, no pruritus Neuro-generalized weakness Psych-depressed affect and tearful Physical Exam Physical Exam: General-alert and oriented x3, no fevers, no chills HEENT-head atraumatic and normocephalic, pupils equal and reactive to light, extraocular muscles intact. Dry mouth noted Neck-no lymphadenopathy or thyromegaly, trachea midline Chest-clear to auscultation percussion. No rales wheezing or rhonchi Cardiac-irregularly irregular heart rhythm. Controlled rate. Normal S1 and S2 Abdomen-normal bowel sounds, nontender, no hepatosplenomegaly Extremities-chronic venous stasis with chronic peripheral edema bilateral lower extremity Neuro-cranial nerves II through XII intact, motor and sensory function within normal limits, strength symmetrical with generalized weakness , no focal deficits Psych-depressed affect, tearful Results & Data Results & Data Vital Signs (Past 12 Hours) Vital Signs Temp Pulse Pulse Resp BP Pulse Ox O2 Del Method 10/22/22 15:34 36.9 C 89 19 110/70 96 Room Air 10/22/22 15:13 90 10/22/22 12:32 Room Air 10/22/22 12:07 36.8 C 90 20 110/65 96 Nasal Cannula 10/22/22 12:24 36.7 C 96 H 18 115/79 94 Room Air 10/22/22 11:11 37.0 C 96 H 20 118/84 95 Room Air 10/22/22 07:54 95 H 10/22/22 07:43 36.8 C 98 H 22 106/76 95 Nasal Cannula O2 Flow Rate 10/22/22 15:34 10/22/22 15:13 10/22/22 12:32 10/22/22 12:07 2 10/22/22 12:24 10/22/22 11:11 10/22/22 07:54 10/22/22 07:43 3.0 PG Care Time/CCT Total # of Minutes Spent Total Time Spent with Patient: Total time spent is greater than 50% in coordination of care (as documented) at patient's floor/unit and/or counseling patient: Coding Level of Care Code 63312 SUB INP/OBS CARE 3/50MIN Diagnoses Acute on chronic heart failure with preserved ejection fraction (HFpEF) I50.33 Acute metabolic encephalopathy G93.41 Acute kidney injury superimposed on CKD N17.9; N18.9 Chronic diastolic congestive heart failure I50.32 Essential hypertension I10 S/P aortic valve replacement with bioprosthetic valve Z95.3
[2022-10-22] MEDS: METOPROLOL SUCC 25MG EXT REL TAB PO SCH (20:01)
[2022-10-22] MEDS: PRAVASTATIN SOD 40 MG TAB PO SCH (20:01)
[2022-10-22] MEDS: dilTIAZem HCl 60 MG TAB PO SCH (20:01)
[2022-10-22] MEDS: ASPIRIN 81 MG ECTAB PO SCH (20:01)
[2022-10-23] MEDS ORDERED: ALBUT/IPRATROP 3MG/0.5MG NEB 3 ML VIAL NEB PRN (00:58)
[2022-10-23] MEDS: SODIUM CHLORIDE 0.9% 1000ML 1,000 ML IV SCH ×2 (02:59→14:11)
--- NOTE | 2022-10-23 04:21 | Communication Note ---
Date of Service: October 23, 2022 I was notified ~0400 that patient had gotten up to use the bathroom without her O2 and desaturated into the 70s. At bedside, pt appears comfortable and not in respiratory distress. She has been getting breathing treatments. Denies sob. She does sound somewhat diminished in her L lower lung. O2 sat in 90s with 2-4L NC. I did compare her CXR from earlier tonight with an image from a couple days ago and there does appear to be some interval development of moderate pleural effusion in L lower lung. Will hold IVF at this time. Given her kidney function will defer diuresis for now. Ordered procal along with am labs to help r/o pneumonia although she has no clinical signs. Would consider thoracentesis during the day if pleural effusion confirmed. Resident Activity Tracking Resident Involvement: Resident Care Provided Care Provided: Adult Hospital Medicine
[2022-10-23] MEDS: LEVOTHYROXINE SODIUM 150 MCG TABLET PO SCH (05:12)
[2022-10-23 07:00] LABS: INR 1.6 (0.9-1.1); Prothrombin Time 16.7 Seconds (9.0-12.0)
[2022-10-23 07:42] LABS: Potassium 3.7 mmol/L (3.5-5.1)
[2022-10-23] MEDS: LANTUS PER UNIT CHARGE SQ SCH ×2 (07:47→20:26)
--- NOTE | 2022-10-23 07:47 | XRay Report ---
SINGLE VIEW CHEST CLINICAL HISTORY: Renal failure. FINDINGS: An AP, portable, upright chest radiograph is compared to study dated 10/21/2022. The patient is status post midline sternotomy and cardiac valve surgery. The heart is enlarged noting atheroscler otic calcification of the thoracic aorta. There is pulmonary vascular congestion. There is bibasilar scarring/atelectasis. No airspace consolidation or large pleural effusion is identified. No pneumotho rax is seen. The skeletal structures are osteopenic. The bony thorax is grossly intact. IMPRESSION: Cardiomegaly with pulmonary vascular congestion. ACT 112: Negative or not required by law. Electronically signed by: Cortez David M.D. 10/23/2022 7:46 AM
[2022-10-23 07:48] LABS: Basophils # (auto) 0.05 K/uL (0-0.2); Basophils % (auto) 0.7 %; Eosinophils # (auto) 0.14 K/uL (0-0.50); Hematocrit (blood only) 29.4 % (37.0-47.0); Hemoglobin 9.4 g/dl (12.0-16.0); Immature Granulocytes # (auto) 0.01 K/uL (0.01-0.20); Immature Granulocytes % (auto) 0.1 %; Lymphocytes # (auto) 1.05 K/uL (1.2-3.4); Lymphocytes % (auto) 14.9 %; Mean Corpuscular Hemoglobin 28.1 pg (25.0-34.0); Mean Corpuscular Volume 87.8 fL (80.0-100.0); Mean Platelet Volume 10.3 fL (9.4-12.4); Monocytes # (auto) 0.72 K/uL (0.11-0.59); Monocytes % (auto) 10.2 %; Neutrophils # (auto) 5.06 K/uL (1.40-6.50); Neutrophils % (auto) 72.1 %; Platelet Count 173 K/uL (130-400); RDW Standard Deviation 50.9 fL (36.4-46.3); Red Blood Count 3.35 M/uL (4.20-5.40); White Blood Count 7.03 K/ul (4.8-10.8)
[2022-10-23] MEDS: allopurinoL 100 MG TAB PO SCH (07:48)
[2022-10-23] MEDS: INSULIN ASPART PER UNIT CHARGE SC SCH ×4 (07:48→20:30)
[2022-10-23] MEDS: dilTIAZem HCL 240 MG CAPCR PO SCH (07:48)
[2022-10-23 09:22] LABS: BUN Creatinine Ratio 17.6 (10-20); C Reactive Protein 4.06 mg/dl (0-0.5); Creatinine Clr Calc Pharmacy 15.7 ml/min; Est GFR (African American) 11.6 ml/min
--- NOTE | 2022-10-23 10:32 | Nephrology Progress Note ---
Date of Service October 23, 2022 Assessment & Plan (1) AMS (altered mental status): Plan: Maria A continues to struggle with some word finding difficulty and short term memory loss. She recognizes these difficulties. Her baseline mental status is not known to me but orientation has improved. She was slightly confused thinking that Dr. Alicea had seen her overnight. (2) Acute kidney injury superimposed on chronic kidney disease: Plan: Non-oliguric. Creatinine slightly improved or stable. Electrolytes normal. No emergent indication for PSYCHOLOGIST EXPERIMENTAL. Unfortunately, the patient is a poor candidate for retirement PSYCHOLOGIST EXPERIMENTAL wtih dialysis if needed due to medical comorbidities. Bumex was held and IV saline infusion @ 80 ml/hr started yesterday afternoon due to concerns for intravascular volume depletion. Saline infusion was then held overnight due to noted hypoxia and increasing dyspnea. Maria A remains in a documented slightly negative fluid balance and weight is down ~0.3 kg. I suspect she would benefit from continued even to slightly negative fluid balance. She had a robust response to IV Bumex yesterday. I would recommend continuing to hold IVF for now. Document strict I/O's and provide additional diuretic only PRN. Renal US reviewed. No evidence of obstruction. Medications appropriately dosed for kidney dysfunction. Spironolactone, potassium citrate, and metformin held. (3) Acute exacerbation of congestive heart failure: Plan: Very difficult clinical exam. I discussed the patient's status and plan of care with Dr. Mondragon and Glenny Clark PA-C this AM. (4) Chronic kidney disease with active medical management without dialysis, stage 3 (moderate): Plan: Followed by Dr. Alicea as outpatient. Baseline creatinine ~1.5 mg/dL. 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 Admission and Anticipated Discharge Date Admission Date: October 21, 2022 Subjective Overnight reported some dyspnea. O2 sat dropped with ambulating in hospital room. Maria A reported some chest heaviness. Symptoms have improved this AM. She was resting comfortably in bedside chair this AM and denied any dyspnea at rest. She denies chest pain or palpitations. She denied lightheadedness or dizziness. Maria A is oriented to place and time. She continues to struggle with some word finding difficulty and she admits that her short term memory is not good. She told me that Dr. Alicea was in to see her last evening but he was not. She admits that she may have confused another provider with Dr. Alicea. She also reports some difficulty sleeping. No fevers or chills. Edema is improving. Appetite is good. Review of Systems Review of Systems: All systems reviewed & are unremarkable except as noted in HPI & below Physical Exam Constitutional: well developed and + morbidly obese; no acute distress Eyes: no scleral abnormality and no corneal abnormality ENMT: Mouth: + dry oral mucous membranes; no oral mucosal abnormality Neck: normal visual inspection, trachea midline and + thick neck Respiratory: normal respiratory effort Auscultation: + diminished lung sounds and + rales (soft rales appreciated bilaterally) Cardiovascular: Rate/Rhythm: regular rate Heart Sounds: normal S1 and normal S2 Extremities: + edema (4+ pitting BL LE with chronic changes) Musculoskeletal: Extremities: no cyanosis and no clubbing Skin: + turgor decreased; no jaundice Neurologic: Motor/Sensory: no tremor and no asterixis Psychiatric: Orientation: alert, oriented to person, oriented to place and cooperative; + not oriented to time Results & Data Vital Signs (Past 12 Hours) Vital Signs Temp Pulse Pulse Resp BP Pulse Ox O2 Del Method 10/23/22 07:33 36.9 C 100 H 18 127/70 93 Room Air 10/23/22 07:19 84 10/23/22 03:43 78 22 92 Nasal Cannula 10/23/22 02:55 36.6 C 76 18 113/63 97 Nasal Cannula 10/22/22 22:54 36.8 C 71 18 102/73 94 Room Air O2 Flow Rate 10/23/22 07:33 10/23/22 07:19 10/23/22 03:43 4 10/23/22 02:55 10/22/22 22:54 Laboratory Results Laboratory Results - last 24 hr 10/22/22 10/22/22 10/22/22 11:08 11:41 16:23 WBC RBC Hgb Hct MCV MCH MCHC RDW Std Deviation RDW Coeff of [place] Plt Count MPV Immature Gran % (Auto) Neut % (Auto) Lymph % (Auto) [place] % (Auto) Eos % (Auto) Baso % (Auto) Neut # (Auto) Lymph # (Auto) [place] # (Auto) Eos # (Auto) Baso # (Auto) Immature Gran # (Auto) Absolute Nucleated RBC Nucleated RBC % (auto) Neutrophils % (Manual) Band Neutrophils % Lymphocytes % (Manual) Prolymphocyte % Reactive Lymphs % (Man) Monocytes % (Manual) Eosinophils % (Manual) Basophils % (Manual) Metamyelocytes % (Man) Myelocytes % (Man) Promyelocytes % (Man) Blast Cells % (Manual) Plasma Cell % (Manual) Other Cells % Nucleated RBC % Neutrophils # (Manual) Band Neutrophils # Total Absolute Neuts Lymphocytes # (Manual) Prolymphocyte # Reactive Lymphs # Total Abs Lymphocytes Monocytes # (Manual) Eosinophils # (Manual) Basophils # (Manual) Metamyelocytes # (Man) Myelocytes # (Manual) Promyelocytes # (Man) Blast Cells # (Man) Plasma Cell # (Manual) Other Cells # Nucleated RBCs # (Man) Hypersegmented Neuts Hyposegmented Neuts Hypogranular Neuts Large Granular Lymphs # Lrg Granular Lymphs Hairy Cells Smudge Cells Toxic Granulation Toxic Vacuolation Dohle Bodies Alireza Rods Platelet Estimate Hypogranular Platelets Giant Platelets Platelet Satelliting RBC Morphology Polychromasia Hypochromasia Poikilocytosis Basophilic Stippling Anisocytosis Microcytosis Macrocytosis Spherocytes Pappenheimer Bodies Sickle Cells Target Cells Tear Drop Cells Ovalocytes Stomatocytes Bowers-Bessie Bodies Echinocytes Acanthocytes (Spur) Rouleaux RBC Agglutinates Schistocytes Sezary Cell PT INR Sodium Potassium Chloride Carbon Dioxide Anion Gap BUN Creatinine Est Cr Clr Drug Dosing Est GFR ( Amer) Est GFR (Non-Af Amer) BUN/Creatinine Ratio Glucose POC Glucose 133 H 118 H Osmolality 326 H Calcium C-Reactive Protein Procalcitonin Ur Random Creatinine Ur Random Sodium Blood Parasites ID 10/22/22 10/22/22 10/22/22 20:56 Unknown Unknown WBC RBC Hgb Hct MCV MCH MCHC RDW Std Deviation RDW Coeff of [place] Plt Count MPV Immature Gran % (Auto) Neut % (Auto) Lymph % (Auto) [place] % (Auto) Eos % (Auto) Baso % (Auto) Neut # (Auto) Lymph # (Auto) [place] # (Auto) Eos # (Auto) Baso # (Auto) Immature Gran # (Auto) Absolute Nucleated RBC Nucleated RBC % (auto) Neutrophils % (Manual) Band Neutrophils % Lymphocytes % (Manual) Prolymphocyte % Reactive Lymphs % (Man) Monocytes % (Manual) Eosinophils % (Manual) Basophils % (Manual) Metamyelocytes % (Man) Myelocytes % (Man) Promyelocytes % (Man) Blast Cells % (Manual) Plasma Cell % (Manual) Other Cells % Nucleated RBC % Neutrophils # (Manual) Band Neutrophils # Total Absolute Neuts Lymphocytes # (Manual) Prolymphocyte # Reactive Lymphs # Total Abs Lymphocytes Monocytes # (Manual) Eosinophils # (Manual) Basophils # (Manual) Metamyelocytes # (Man) Myelocytes # (Manual) Promyelocytes # (Man) Blast Cells # (Man) Plasma Cell # (Manual) Other Cells # Nucleated RBCs # (Man) Hypersegmented Neuts Hyposegmented Neuts Hypogranular Neuts Large Granular Lymphs # Lrg Granular Lymphs Hairy Cells Smudge Cells Toxic Granulation Toxic Vacuolation Dohle Bodies Alireza Rods Platelet Estimate Hypogranular Platelets Giant Platelets Platelet Satelliting RBC Morphology Polychromasia Hypochromasia Poikilocytosis Basophilic Stippling Anisocytosis Microcytosis Macrocytosis Spherocytes Pappenheimer Bodies Sickle Cells Target Cells Tear Drop Cells Ovalocytes Stomatocytes Bowers-Bessie Bodies Echinocytes Acanthocytes (Spur) Rouleaux RBC Agglutinates Schistocytes Sezary Cell PT INR Sodium Potassium Chloride Carbon Dioxide Anion Gap BUN Creatinine Est Cr Clr Drug Dosing Est GFR ( Amer) Est GFR (Non-Af Amer) BUN/Creatinine Ratio Glucose POC Glucose 111 H Osmolality Calcium C-Reactive Protein Procalcitonin Ur Random Creatinine 29.6 Ur Random Sodium 104 Blood Parasites ID 10/23/22 10/23/22 10/23/22 05:58 05:58 05:58 WBC Cancelled RBC Cancelled Hgb Cancelled Hct Cancelled MCV Cancelled MCH Cancelled MCHC Cancelled RDW Std Deviation Cancelled RDW Coeff of [place] Cancelled Plt Count Cancelled MPV Cancelled Immature Gran % (Auto) Cancelled Neut % (Auto) Cancelled Lymph % (Auto) Cancelled [place] % (Auto) Cancelled Eos % (Auto) Cancelled Baso % (Auto) Cancelled Neut # (Auto) Cancelled Lymph # (Auto) Cancelled [place] # (Auto) Cancelled Eos # (Auto) Cancelled Baso # (Auto) Cancelled Immature Gran # (Auto) Cancelled Absolute Nucleated RBC Cancelled Nucleated RBC % (auto) Cancelled Neutrophils % (Manual) Cancelled Band Neutrophils % Cancelled Lymphocytes % (Manual) Cancelled Prolymphocyte % Cancelled Reactive Lymphs % (Man) Cancelled Monocytes % (Manual) Cancelled Eosinophils % (Manual) Cancelled Basophils % (Manual) Cancelled Metamyelocytes % (Man) Cancelled Myelocytes % (Man) Cancelled Promyelocytes % (Man) Cancelled Blast Cells % (Manual) Cancelled Plasma Cell % (Manual) Cancelled Other Cells % Cancelled Nucleated RBC % Cancelled Neutrophils # (Manual) Cancelled Band Neutrophils # Cancelled Total Absolute Neuts Cancelled Lymphocytes # (Manual) Cancelled Prolymphocyte # Cancelled Reactive Lymphs # Cancelled Total Abs Lymphocytes Cancelled Monocytes # (Manual) Cancelled Eosinophils # (Manual) Cancelled Basophils # (Manual) Cancelled Metamyelocytes # (Man) Cancelled Myelocytes # (Manual) Cancelled Promyelocytes # (Man) Cancelled Blast Cells # (Man) Cancelled Plasma Cell # (Manual) Cancelled Other Cells # Cancelled Nucleated RBCs # (Man) Cancelled Hypersegmented Neuts Cancelled Hyposegmented Neuts Cancelled Hypogranular Neuts Cancelled Large Granular Lymphs Cancelled # Lrg Granular Lymphs Cancelled Hairy Cells Cancelled Smudge Cells Cancelled Toxic Granulation Cancelled Toxic Vacuolation Cancelled Dohle Bodies Cancelled Alireza Rods Cancelled Platelet Estimate Cancelled Hypogranular Platelets Cancelled Giant Platelets Cancelled Platelet Satelliting Cancelled RBC Morphology Cancelled Polychromasia Cancelled Hypochromasia Cancelled Poikilocytosis Cancelled Basophilic Stippling Cancelled Anisocytosis Cancelled Microcytosis Cancelled Macrocytosis Cancelled Spherocytes Cancelled Pappenheimer Bodies Cancelled Sickle Cells Cancelled Target Cells Cancelled Tear Drop Cells Cancelled Ovalocytes Cancelled Stomatocytes Cancelled Bowers-Bessie Bodies Cancelled Echinocytes Cancelled Acanthocytes (Spur) Cancelled Rouleaux Cancelled RBC Agglutinates Cancelled Schistocytes Cancelled Sezary Cell Cancelled PT 16.7 H INR 1.6 H Sodium 144 Potassium 3.7 Chloride 107 Carbon Dioxide 25 Anion Gap 12 H BUN 72 H Creatinine 4.09 H Est Cr Clr Drug Dosing 15.7 Est GFR ( Amer) 11.6 Est GFR (Non-Af Amer) 10.0 BUN/Creatinine Ratio 17.6 Glucose 77 POC Glucose Osmolality Calcium 9.0 C-Reactive Protein 4.06 H Procalcitonin Ur Random Creatinine Ur Random Sodium Blood Parasites ID Cancelled 10/23/22 10/23/22 10/23/22 05:58 07:07 07:09 WBC 7.03 RBC 3.35 L Hgb 9.4 L Hct 29.4 L MCV 87.8 MCH 28.1 MCHC 32.0 RDW Std Deviation 50.9 H RDW Coeff of [place] 16.0 H Plt Count 173 MPV 10.3 Immature Gran % (Auto) 0.1 Neut % (Auto) 72.1 Lymph % (Auto) 14.9 [place] % (Auto) 10.2 Eos % (Auto) 2.0 Baso % (Auto) 0.7 Neut # (Auto) 5.06 Lymph # (Auto) 1.05 L [place] # (Auto) 0.72 H Eos # (Auto) 0.14 Baso # (Auto) 0.05 Immature Gran # (Auto) 0.01 Absolute Nucleated RBC Nucleated RBC % (auto) Neutrophils % (Manual) Band Neutrophils % Lymphocytes % (Manual) Prolymphocyte % Reactive Lymphs % (Man) Monocytes % (Manual) Eosinophils % (Manual) Basophils % (Manual) Metamyelocytes % (Man) Myelocytes % (Man) Promyelocytes % (Man) Blast Cells % (Manual) Plasma Cell % (Manual) Other Cells % Nucleated RBC % Neutrophils # (Manual) Band Neutrophils # Total Absolute Neuts Lymphocytes # (Manual) Prolymphocyte # Reactive Lymphs # Total Abs Lymphocytes Monocytes # (Manual) Eosinophils # (Manual) Basophils # (Manual) Metamyelocytes # (Man) Myelocytes # (Manual) Promyelocytes # (Man) Blast Cells # (Man) Plasma Cell # (Manual) Other Cells # Nucleated RBCs # (Man) Hypersegmented Neuts Hyposegmented Neuts Hypogranular Neuts Large Granular Lymphs # Lrg Granular Lymphs Hairy Cells Smudge Cells Toxic Granulation Toxic Vacuolation Dohle Bodies Alireza Rods Platelet Estimate Hypogranular Platelets Giant Platelets Platelet Satelliting RBC Morphology Polychromasia Hypochromasia Poikilocytosis Basophilic Stippling Anisocytosis Microcytosis Macrocytosis Spherocytes Pappenheimer Bodies Sickle Cells Target Cells Tear Drop Cells Ovalocytes Stomatocytes Bowers-Bessie Bodies Echinocytes Acanthocytes (Spur) Rouleaux RBC Agglutinates Schistocytes Sezary Cell PT INR Sodium Potassium Chloride Carbon Dioxide Anion Gap BUN Creatinine Est Cr Clr Drug Dosing Est GFR ( Amer) Est GFR (Non-Af Amer) BUN/Creatinine Ratio Glucose POC Glucose 84 Osmolality Calcium C-Reactive Protein Procalcitonin 0.10 Ur Random Creatinine Ur Random Sodium Blood Parasites ID Diagnostic Findings SINGLE VIEW CHEST FINDINGS: An AP, portable, upright chest radiograph is compared to study dated . The patient is status post midline sternotomy and cardiac valve surgery. The heart is enlarged noting atherosclerotic calcification of the thoracic aorta. There is pulmonary vascular congestion. There is bibasilar scarring/atelectasis. No airspace consolidation or large pleural effusion is identified. No pneumothorax is seen. The skeletal structures are osteopenic. The bony thorax is grossly intact. IMPRESSION: Cardiomegaly with pulmonary vascular congestion. PG Care Time/CCT Total # of Minutes Spent Total Time Spent with Patient: Total time spent is greater than 50% in coordination of care (as documented) at patient's floor/unit and/or counseling patient: Coding Level of Care Code 66611 SUB INP/OBS CARE 3/50MIN Diagnoses AMS (altered mental status) R41.82 Acute kidney injury superimposed on chronic kidney disease N17.9; N18.9 Acute exacerbation of congestive heart failure I50.9 Chronic kidney disease with active medical management without dialysis, stage 3 (moderate) N18.30
[2022-10-23] MEDS: ACETAMINOPHEN 325 MG TAB PO PRN (13:14)
--- NOTE | 2022-10-23 15:16 | Hospitalist Progress Note ---
Date of Service October 23, 2022 Assessment & Plan (1) Acute on chronic heart failure with preserved ejection fraction (HFpEF): Plan: Ruled out. She is actually intravascularly volume depleted. Intravenous Bumex has been stopped. She received IV fluids October 22 which have since been discontinued. She apparently desaturated last night with ambulation but I am not sure if this was accurate or not. She is now on room air and I would not expect anything profound to resolve quickly. Continue to monitor intake and output and monitor renal function. (2) Acute metabolic encephalopathy: Plan: Present on admission. Now resolved (3) Acute kidney injury superimposed on CKD: Plan: Parenteral diuretics have been discontinued. IV fluids were administered October 22 and have not been discontinued. Monitor intake and output. Serial labs. Appreciate nephrology consultation and recommendations. Renal ultrasound report negative for obstruction (4) Chronic diastolic congestive heart failure: Plan: Spironolactone was recently added and her Bumex dosage was increased in the outpatient clinic. Unfortunately, this apparently has resulted in intravascular volume depletion and acute renal failure (5) Subconjunctival hemorrhage of right eye: Plan: No vision loss. Asymptomatic. Probably due to recently elevated INR. (6) Coumadin toxicity: Plan: Resolved with vitamin K. INR is down to 1.6. Coumadin has been restarted. Will follow daily INR measurement (7) Essential hypertension: Plan: Stable. Continue current medical manage (8) S/P aortic valve replacement with bioprosthetic valve: Plan: Stable. Continue current medical management Plan To be determined. OT and PT evaluations requested. She may need SNF placement before she can return home Admission and Anticipated Discharge Date Admission Date: October 21, 2022 Subjective Alert and oriented. Nephrology entry noted. Creatinine has improved down to 4.0. Oral intake is adequate and IV fluids have been stopped. INR is down to 1.6 after vitamin K given. Coumadin has been restarted. We will continue to monitor INR daily. She has developed a subconjunctival hemorrhage on the medial aspect of the right eye with no vision impairment. This will simply be followed. OT and PT evaluations requested. She may need SNF placement at discharge Review of Systems Review of Systems: Constitutional-no fever or chills ENT-no blurred vision, no double vision, no epistaxis, no sore throat. Xerostomia Respiratory-no cough, no wheezing, no shortness of breath Cardiac-no palpitations, no chest pain, no syncope GI-no nausea, vomiting, diarrhea, melena, hematochezia -no urinary retention, no urinary incontinence, no dysuria, no hematuria Musculoskeletal-chronic peripheral edema from chronic venous stasis Skin-no bruising, no rashes, no pruritus Neuro-generalized weakness Psych-depressed affect and tearful Physical Exam Physical Exam: General-alert and oriented x3, no fevers, no chills HEENT-head atraumatic and normocephalic, pupils equal and reactive to light, extraocular muscles intact. Dry mouth noted Neck-no lymphadenopathy or thyromegaly, trachea midline Chest-clear to auscultation percussion. No rales wheezing or rhonchi Cardiac-irregularly irregular heart rhythm. Controlled rate. Normal S1 and S2 Abdomen-normal bowel sounds, nontender, no hepatosplenomegaly Extremities-chronic venous stasis with chronic peripheral edema bilateral lower extremity Neuro-cranial nerves II through XII intact, motor and sensory function within normal limits, strength symmetrical with generalized weakness , no focal deficits Psych-depressed affect, tearful Results & Data Results & Data Vital Signs (Past 12 Hours) Vital Signs Temp Pulse Pulse Resp BP Pulse Ox Pulse Ox 10/23/22 14:41 95 10/23/22 11:23 36.9 C 88 20 129/71 95 10/23/22 10:36 10/23/22 07:33 36.9 C 100 H 18 127/70 93 10/23/22 07:19 84 10/23/22 03:43 78 22 92 Pulse Ox Pulse Ox O2 Del Method O2 Flow Rate O2 Flow Rate O2 Flow Rate O2 Flow Rate 10/23/22 14:41 95 86 L 0 0 0 10/23/22 11:23 Room Air 10/23/22 10:36 Room Air 10/23/22 07:33 Room Air 10/23/22 07:19 10/23/22 03:43 Nasal Cannula 4 Laboratory Results 10/23/22 07:09 10/23/22 05:58 PG Care Time/CCT Total # of Minutes Spent Total Time Spent with Patient: Total time spent is greater than 50% in coordination of care (as documented) at patient's floor/unit and/or counseling patient: Coding Level of Care Code 80060 SUB INP/OBS CARE 3/50MIN Diagnoses Acute on chronic heart failure with preserved ejection fraction (HFpEF) I50.33 Acute metabolic encephalopathy G93.41 Acute kidney injury superimposed on CKD N17.9; N18.9 Chronic diastolic congestive heart failure I50.32 Subconjunctival hemorrhage of right eye H11.31 Coumadin toxicity T45.511A Essential hypertension I10 S/P aortic valve replacement with bioprosthetic valve Z95.3
[2022-10-23] MEDS: WARFARIN SOD 2 MG TAB PO SCH (15:49)
[2022-10-23] MEDS ORDERED: WARFARIN SOD 2 MG TAB PO SCH (16:00)
[2022-10-23 17:04] LABS: BUN Creatinine Ratio 17.7 (10-20); Calcium 9.2 mg/dl (8.6-10.3); Creatinine Clr Calc Pharmacy 16.2 ml/min; Est GFR (African American) 12.1 ml/min; Est GFR (Non-African American) 10.4 ml/min; Potassium 3.5 mmol/L (3.5-5.1)
[2022-10-23] MEDS: METOPROLOL SUCC 25MG EXT REL TAB PO SCH (20:25)
[2022-10-23] MEDS: PRAVASTATIN SOD 40 MG TAB PO SCH (20:25)
[2022-10-23] MEDS: dilTIAZem HCl 60 MG TAB PO SCH (20:26)
[2022-10-23] MEDS: ASPIRIN 81 MG ECTAB PO SCH (20:26)
[2022-10-24] MEDS: LEVOTHYROXINE SODIUM 150 MCG TABLET PO SCH (05:56)
[2022-10-24] MEDS: SODIUM CHLORIDE 0.9% 1000ML 1,000 ML IV SCH ×2 (05:56→14:51)
[2022-10-24 06:30] LABS: Basophils # (auto) 0.04 K/uL (0-0.2); Basophils % (auto) 0.6 %; Eosinophils % (auto) 4.4 %; Hematocrit (blood only) 29.1 % (37.0-47.0); Hemoglobin 9.5 g/dl (12.0-16.0); Immature Granulocytes # (auto) 0.02 K/uL (0.01-0.20); Immature Granulocytes % (auto) 0.3 %; Lymphocytes # (auto) 1.33 K/uL (1.2-3.4); Lymphocytes % (auto) 19.3 %; Mean Corpuscular Hemoglobin 28.2 pg (25.0-34.0); Mean Corpuscular Hgb Conc 32.6 g/dL (32.0-36.0); Mean Corpuscular Volume 86.4 fL (80.0-100.0); Mean Platelet Volume 10.4 fL (9.4-12.4); Monocytes # (auto) 0.67 K/uL (0.11-0.59); Monocytes % (auto) 9.7 %; Neutrophils # (auto) 4.52 K/uL (1.40-6.50); Neutrophils % (auto) 65.7 %; Platelet Count 180 K/uL (130-400); RDW Coefficient of Variation 16.1 % (11.5-14.5); RDW Standard Deviation 50.3 fL (36.4-46.3); Red Blood Count 3.37 M/uL (4.20-5.40); White Blood Count 6.88 K/ul (4.8-10.8)
[2022-10-24 06:44] LABS: BUN Creatinine Ratio 16.3 (10-20); Calcium 9.2 mg/dl (8.6-10.3); Est GFR (Non-African American) 9.5 ml/min; Potassium 3.5 mmol/L (3.5-5.1)
[2022-10-24 06:55] LABS: INR 1.6 (0.9-1.1); Prothrombin Time 16.8 Seconds (9.0-12.0)
[2022-10-24] MEDS: LANTUS PER UNIT CHARGE SQ SCH ×2 (08:15→22:06)
[2022-10-24] MEDS: INSULIN ASPART PER UNIT CHARGE SC SCH ×4 (08:16→22:07)
[2022-10-24] MEDS: allopurinoL 100 MG TAB PO SCH (08:16)
[2022-10-24] MEDS: dilTIAZem HCL 240 MG CAPCR PO SCH (08:16)
--- NOTE | 2022-10-24 10:42 | Nephrology Progress Note ---
Date of Service October 24, 2022 Assessment & Plan (1) AMS (altered mental status): Plan: Symptoms seem more consistent with delirium but etiology is not clear. May ultimately benefit from additional evaluation including MRI and neurology evaluation. Baseline mental status is not know to me but Dr. Alicea has confirmed that this is a noted change from how Jayshree was at her clinic visit in early September. (2) Acute kidney injury superimposed on chronic kidney disease: Plan: Non-oliguric. Creatinine relatively stable but fluctuating. Electrolytes normal. No emergent indication for BEAD TRIMMER. Unfortunately, the patient is a poor candidate for box nailer dialysis due to medical comorbidities. Weight is stable. I/O's relatively stable. Appetite and PO intake overall acceptable. I suspect she would benefit from continued even fluid balance. Given signs of persistent right R CHF, I would avoid aggressive IVF. To help better discern volume status TTE has been requested to evaluate right heart and pulmonary pressures predominately. She had a robust response to IV Bumex on admission. I would recommend continuing to hold IVF for now. Document strict I/O's and provide additional diuretic only PRN. Renal US reviewed. No evidence of obstruction. Medications appropriately dosed for kidney dysfunction. Spironolactone, potassium citrate, and metformin held. (3) Acute exacerbation of congestive heart failure: Plan: TTE requested to help assess volume status. (4) Chronic kidney disease with active medical management without dialysis, stage 3 (moderate): Plan: Followed by Dr. Alicea as outpatient. Baseline creatinine ~1.5 mg/dL. 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 Admission and Anticipated Discharge Date Admission Date: October 21, 2022 Subjective Some continued waxing and waning mental status changes noted. Maria A continues to express frustration in this regard. She pulled off her monitor and removed her IV this AM in a state of confusion and subsequently realized that her behavior was abnormal. She continues to report some cloudiness of thought and difficulty expressing her thoughts. Word finding is improving. She is able to name objects without difficulty. She feels her thought process is slow and states that she tends to become confused in the middle of conversations and has trouble maintaining attention. This morning, she thought that family had visited her who have not been to the hospital. Review of Systems Review of Systems: All systems reviewed & are unremarkable except as noted in HPI & below Physical Exam Constitutional: well developed and + morbidly obese; no acute distress Eyes: + conjunctival abnormality (subconjunctival hemorrhage); no scleral abnormality and no corneal abnormality ENMT: Mouth: + dry oral mucous membranes; no oral mucosal abnormality Neck: normal visual inspection, trachea midline and + thick neck Respiratory: normal respiratory effort Auscultation: lungs clear to auscultation bilaterally Cardiovascular: Rate/Rhythm: regular rate Heart Sounds: normal S1 and normal S2 Extremities: + edema (3+ pitting BL LE with chronic changes) Musculoskeletal: Extremities: no cyanosis and no clubbing Skin: normal turgor and + turgor decreased; no jaundice Neurologic: Motor/Sensory: no tremor and no asterixis Psychiatric: Orientation: alert and oriented x 3 Results & Data Vital Signs (Past 12 Hours) Vital Signs Temp Pulse Pulse Resp BP Pulse Ox O2 Del Method 10/24/22 09:29 Room Air 10/24/22 08:47 77 10/24/22 08:29 36.7 C 80 22 103/63 93 Room Air 10/24/22 04:00 36.6 C 77 20 118/65 97 Room Air Laboratory Results Laboratory Results - last 24 hr 10/23/22 10/23/22 10/23/22 10:49 16:09 16:23 WBC RBC Hgb Hct MCV MCH MCHC RDW Std Deviation RDW Coeff of Salvador Plt Count MPV Immature Gran % (Auto) Neut % (Auto) Lymph % (Auto) Duval % (Auto) Eos % (Auto) Baso % (Auto) Neut # (Auto) Lymph # (Auto) Duval # (Auto) Eos # (Auto) Baso # (Auto) Immature Gran # (Auto) PT INR Sodium 144 Potassium 3.5 Chloride 107 Carbon Dioxide 26 Anion Gap 11 BUN 70 H Creatinine 3.96 H Est Cr Clr Drug Dosing 16.2 Est GFR ( Amer) 12.1 Est GFR (Non-Af Amer) 10.4 BUN/Creatinine Ratio 17.7 Glucose 100 H POC Glucose 97 108 H Calcium 9.2 10/23/22 10/24/22 10/24/22 20:16 05:47 05:47 WBC RBC Hgb Hct MCV MCH MCHC RDW Std Deviation RDW Coeff of Salvador Plt Count MPV Immature Gran % (Auto) Neut % (Auto) Lymph % (Auto) Duval % (Auto) Eos % (Auto) Baso % (Auto) Neut # (Auto) Lymph # (Auto) Duval # (Auto) Eos # (Auto) Baso # (Auto) Immature Gran # (Auto) PT 16.8 H INR 1.6 H Sodium 145 Potassium 3.5 Chloride 107 Carbon Dioxide 24 Anion Gap 14 H BUN 70 H Creatinine 4.29 H D Est Cr Clr Drug Dosing 15.0 Est GFR ( Amer) 11.0 Est GFR (Non-Af Amer) 9.5 BUN/Creatinine Ratio 16.3 Glucose 101 H POC Glucose 129 H Calcium 9.2 10/24/22 10/24/22 05:47 07:33 WBC 6.88 RBC 3.37 L Hgb 9.5 L Hct 29.1 L MCV 86.4 MCH 28.2 MCHC 32.6 RDW Std Deviation 50.3 H RDW Coeff of Salvador 16.1 H Plt Count 180 MPV 10.4 Immature Gran % (Auto) 0.3 Neut % (Auto) 65.7 Lymph % (Auto) 19.3 Duval % (Auto) 9.7 Eos % (Auto) 4.4 Baso % (Auto) 0.6 Neut # (Auto) 4.52 Lymph # (Auto) 1.33 Duval # (Auto) 0.67 H Eos # (Auto) 0.30 Baso # (Auto) 0.04 Immature Gran # (Auto) 0.02 PT INR Sodium Potassium Chloride Carbon Dioxide Anion Gap BUN Creatinine Est Cr Clr Drug Dosing Est GFR ( Amer) Est GFR (Non-Af Amer) BUN/Creatinine Ratio Glucose POC Glucose 108 H Calcium PG Care Time/CCT Total # of Minutes Spent Total Time Spent with Patient: Total time spent is greater than 50% in coordination of care (as documented) at patient's floor/unit and/or counseling patient: Coding Level of Care Code 32367 SUB INP/OBS CARE 3/50MIN Diagnoses AMS (altered mental status) R41.82 Acute kidney injury superimposed on chronic kidney disease N17.9; N18.9 Acute exacerbation of congestive heart failure I50.9 Chronic kidney disease with active medical management without dialysis, stage 3 (moderate) N18.30
--- NOTE | 2022-10-24 12:59 | XCELERA ---
[id number]
[2022-10-24 15:10] LABS: BUN Creatinine Ratio 16.9 (10-20); Calcium 9.2 mg/dl (8.6-10.3); Creatinine Clr Calc Pharmacy 15.1 ml/min; Est GFR (African American) 11.1 ml/min; Est GFR (Non-African American) 9.6 ml/min; Potassium 3.6 mmol/L (3.5-5.1)
--- NOTE | 2022-10-24 15:24 | Hospitalist Progress Note ---
Date of Service October 24, 2022 Assessment & Plan (1) Acute on chronic heart failure with preserved ejection fraction (HFpEF): Plan: Acute left ventricular failure ruled out. She has elevated right ventricular pressures which undoubtedly are contributing to the chronic lower extremity edema. She actually appears to be intravascularly volume depleted. Serum osmolarity is elevated at 326. Intravenous Bumex has been stopped. Judicious IV fluids have been restarted. Appreciate nephrology consultation and input. Clinically, she has no evidence of left ventricular heart failure. She is on room air. Continue to monitor intake and output and monitor renal function. (2) Acute metabolic encephalopathy: Plan: Present on admission. She seems to be alert and oriented to me but regular caregivers state that her mental status is not normal (3) Acute kidney injury superimposed on CKD: Plan: Parenteral diuretics have been discontinued. IV fluids at a judicious rate restarted today, October 24. Monitor intake and output. Serial labs. Appreciate nephrology consultation and recommendations. Renal ultrasound report negative for obstruction (4) Chronic diastolic congestive heart failure: Plan: Spironolactone was recently added and her Bumex dosage was increased in the outpatient clinic. Unfortunately, this apparently has resulted in intravascular volume depletion and acute renal failure (5) Subconjunctival hemorrhage of right eye: Plan: No vision loss. Asymptomatic. Probably due to recently elevated INR. Should resolve without treatment (6) Coumadin toxicity: Plan: Resolved with vitamin K. INR decreased to 1.6 to and remains at 1.6 today, October 24. Coumadin was restarted on October 23. Will follow daily INR measurement (7) Essential hypertension: Plan: Stable. Continue current medical manage (8) S/P aortic valve replacement with bioprosthetic valve: Plan: Stable. Continue current medical management Plan To be determined. OT and PT evaluations requested. She may need SNF placement before she can return home Admission and Anticipated Discharge Date Admission Date: October 21, 2022 Subjective Awake and alert. She is oriented x 3 at the time of my examination. She does not appear to be encephalopathic. The right eye subconjunctival hemorrhage has not enlarged and will resolve with time. INR remains at 1.6. Continue Coumadin and daily INR measurements. Creatinine has risen slightly to 4.2. Will restart judicious IV fluids and continue to monitor. Cardiac echo report noted. Case discussed with nephrology. Cardiac echo reveals normal ejection fraction with mild left ventricular hypertrophy, moderate left atrial and right atrial enlargement, bioprosthetic aortic valve replacement, moderate mitral regurgitation, elevated right ventricular systolic pressures greater than 60 mmHg which undoubtedly is chronic. Review of Systems Review of Systems: Constitutional-no fever or chills ENT-no blurred vision, no double vision, no epistaxis, no sore throat. Xerostomia Respiratory-no cough, no wheezing, no shortness of breath Cardiac-no palpitations, no chest pain, no syncope GI-no nausea, vomiting, diarrhea, melena, hematochezia -no urinary retention, no urinary incontinence, no dysuria, no hematuria Musculoskeletal-chronic peripheral edema from chronic venous stasis Skin-no bruising, no rashes, no pruritus Neuro-generalized weakness Psych-depressed affect Physical Exam Physical Exam: General-alert and oriented x3, no fevers, no chills HEENT-head atraumatic and normocephalic, pupils equal and reactive to light, extraocular muscles intact. Right eye medial subconjunctival hemorrhage has not changed Neck-no lymphadenopathy or thyromegaly, trachea midline Chest-clear to auscultation percussion. No rales wheezing or rhonchi Cardiac-irregularly irregular heart rhythm. Controlled rate. Normal S1 and S2 Abdomen-normal bowel sounds, nontender, no hepatosplenomegaly Extremities-chronic venous stasis with chronic peripheral edema bilateral lower extremity Neuro-cranial nerves II through XII intact, motor and sensory function within normal limits, strength symmetrical with generalized weakness , no focal deficits Psych-depressed affect, tearful Results & Data Results & Data Vital Signs (Past 12 Hours) Vital Signs Temp Pulse Pulse Resp BP Pulse Ox O2 Del Method 10/24/22 12:16 36.5 C 81 22 120/82 96 Room Air 10/24/22 09:29 Room Air 10/24/22 08:47 77 10/24/22 08:29 36.7 C 80 22 103/63 93 Room Air 10/24/22 04:00 36.6 C 77 20 118/65 97 Room Air Laboratory Results 10/24/22 05:47 10/24/22 14:17 PG Care Time/CCT Total # of Minutes Spent Total Time Spent with Patient: Total time spent is greater than 50% in coordination of care (as documented) at patient's floor/unit and/or counseling patient: Coding Level of Care Code 34735 SUB INP/OBS CARE 3/50MIN Diagnoses Acute on chronic heart failure with preserved ejection fraction (HFpEF) I50.33 Acute metabolic encephalopathy G93.41 Acute kidney injury superimposed on CKD N17.9; N18.9 Chronic diastolic congestive heart failure I50.32 Subconjunctival hemorrhage of right eye H11.31 Coumadin toxicity T45.511A Essential hypertension I10 S/P aortic valve replacement with bioprosthetic valve Z95.3
[2022-10-24] MEDS: WARFARIN SOD 2 MG TAB PO SCH (17:18)
[2022-10-24] MEDS: ACETAMINOPHEN 325 MG TAB PO PRN (19:50)
[2022-10-24] MEDS: METOPROLOL SUCC 25MG EXT REL TAB PO SCH (20:30)
[2022-10-24] MEDS: ASPIRIN 81 MG ECTAB PO SCH (20:31)
[2022-10-24] MEDS: dilTIAZem HCl 60 MG TAB PO SCH (20:31)
[2022-10-24] MEDS: PRAVASTATIN SOD 40 MG TAB PO SCH (20:31)
[2022-10-25] MEDS: SODIUM CHLORIDE 0.9% 1000ML 1,000 ML IV SCH ×2 (03:21→16:20)
[2022-10-25] MEDS: LEVOTHYROXINE SODIUM 150 MCG TABLET PO SCH (05:48)
[2022-10-25 06:23] LABS: BUN Creatinine Ratio 17.6 (10-20); Calcium 9.1 mg/dl (8.6-10.3); Creatinine Clr Calc Pharmacy 15.4 ml/min; Est GFR (African American) 11.2 ml/min; Est GFR (Non-African American) 9.7 ml/min; Potassium 3.4 mmol/L (3.5-5.1)
[2022-10-25 06:48] LABS: INR 2.1 (0.9-1.1); Prothrombin Time 21.5 Seconds (9.0-12.0)
[2022-10-25] MEDS: INSULIN ASPART PER UNIT CHARGE SC SCH ×4 (08:23→21:45)
[2022-10-25] MEDS: dilTIAZem HCL 240 MG CAPCR PO SCH (08:24)
[2022-10-25] MEDS: allopurinoL 100 MG TAB PO SCH (08:24)
[2022-10-25] MEDS: LANTUS PER UNIT CHARGE SQ SCH ×2 (08:25→21:44)
[2022-10-25] MEDS ORDERED: POTASSIUM CHLORIDE CRTAB 20 MEQ TABCR PO ONE (09:28)
--- NOTE | 2022-10-25 12:22 | Nephrology Progress Note ---
Date of Service October 25, 2022 Assessment & Plan (1) Acute kidney injury superimposed on chronic kidney disease: Plan: Non-oliguric. Creatinine remains stable. Electrolytes normal. No emergent indication for CERTIFIED HEALTH EDUCATION SPECIALIST. Unfortunately, the patient is a poor candidate for usp dialysis due to medical comorbidities. Weight has increased >2 kg. I/O: +>1.5 L. BP acceptable. I suspect she would benefit from an even or slightly negative fluid balance. Given signs of persistent right R CHF, I would suggest holding IVF but will defer to the hospitalist. TTE did demonstrate increasing RVSP, now >60 mmHg. Maria A has increasing evidence of R heart failure on exam. It would be reasonable to hold IVF now and monitor. PO intake is aceptable. Renal US reviewed. No evidence of obstruction. Medications appropriately dosed for kidney dysfunction. Spironolactone, p otassium citrate, and metformin held. (2) Acute exacerbation of congestive heart failure: Plan: Breathing comfortably. No evidence of decompensated right heart failure. May need to compromise with some tolerable rise in creatinine given signs of right heart failure. (3) Chronic kidney disease with active medical management without dialysis, stage 3 (moderate): Plan: Followed by Dr. Alicea as outpatient. Baseline creatinine ~1.5 mg/dL. 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 Admission and Anticipated Discharge Date Admission Date: October 21, 2022 Subjective No acute events overnight. Maria A was resting comfortably in he bedside recliner with her feet elevated this morning. She describes improvement in confusion and mental status changes. Overall, she feels reasonably well. She has noticed increased LE edema. She denies notable dyspnea. She felt tired this morning and took a short nap. She relates that sleeping overnight in the hospital is improving as she become more comfortable here. She is not experiencing lightheadedness, dizziness, syncope or presyncope. She does not endorse any confusion or word finding difficulty today. She was concerned about the increase in her weight. Review of Systems Review of Systems: All systems reviewed & are unremarkable except as noted in HPI & below Physical Exam Constitutional: well developed and + morbidly obese; no acute distress Eyes: + conjunctival abnormality (subconjunctival hemorrhage); no scleral abnormality and no corneal abnormality ENMT: Mouth: no oral mucosal abnormality and oral mucous membranes not dry Neck: normal visual inspection, trachea midline and + thick neck Respiratory: normal respiratory effort Auscultation: lungs clear to auscultation bilaterally, + diminished lung sounds and + rales (soft rales appreciated bilaterally) Cardiovascular: Rate/Rhythm: regular rate Heart Sounds: normal S1 and normal S2 Extremities: + edema (4+ pitting BL LE ) Musculoskeletal: Extremities: no cyanosis and no clubbing Skin: normal turgor and + turgor decreased; no jaundice Neurologic: Motor/Sensory: no tremor and no asterixis Psychiatric: Orientation: alert and oriented x 3 Results & Data Vital Signs (Past 12 Hours) Vital Signs Temp Pulse Pulse Resp BP BP Pulse Ox 10/25/22 10:59 36.4 C L 79 18 124/68 95 10/25/22 07:32 10/25/22 07:32 72 10/25/22 07:16 36.8 C 71 18 109/65 96 10/25/22 03:07 36.5 C 73 18 128/56 L 94 O2 Del Method 10/25/22 10:59 Room Air 10/25/22 07:32 Room Air 10/25/22 07:32 10/25/22 07:16 Room Air 10/25/22 03:07 Room Air Laboratory Results Laboratory Results - last 24 hr 10/24/22 10/24/22 10/24/22 14:17 15:27 20:51 PT INR Sodium 142 Potassium 3.6 Chloride 105 Carbon Dioxide 26 Anion Gap 11 BUN 72 H Creatinine 4.25 H Est Cr Clr Drug Dosing 15.1 Est GFR ( Amer) 11.1 Est GFR (Non-Af Amer) 9.6 BUN/Creatinine Ratio 16.9 Glucose 163 H POC Glucose 149 H 166 H Calcium 9.2 10/25/22 10/25/22 10/25/22 05:46 05:46 07:19 PT 21.5 H INR 2.1 H Sodium 141 Potassium 3.4 L Chloride 107 Carbon Dioxide 24 Anion Gap 10 BUN 74 H Creatinine 4.21 H Est Cr Clr Drug Dosing 15.4 Est GFR ( Amer) 11.2 Est GFR (Non-Af Amer) 9.7 BUN/Creatinine Ratio 17.6 Glucose 125 H POC Glucose 129 H Calcium 9.1 10/25/22 11:01 PT INR Sodium Potassium Chloride Carbon Dioxide Anion Gap BUN Creatinine Est Cr Clr Drug Dosing Est GFR ( Amer) Est GFR (Non-Af Amer) BUN/Creatinine Ratio Glucose POC Glucose 149 H Calcium PG Care Time/CCT Total # of Minutes Spent Total Time Spent with Patient: Total time spent is greater than 50% in coordination of care (as documented) at patient's floor/unit and/or counseling patient: Coding Level of Care Code 82913 SUB INP/OBS CARE 3/50MIN Diagnoses Acute kidney injury superimposed on chronic kidney disease N17.9; N18.9 Acute exacerbation of congestive heart failure I50.9 Chronic kidney disease with active medical management without dialysis, stage 3 (moderate) N18.30
--- NOTE | 2022-10-25 15:11 | Hospitalist Progress Note ---
Date of Service October 25, 2022 Assessment & Plan (1) Acute on chronic heart failure with preserved ejection fraction (HFpEF): Plan: Acute left ventricular failure ruled out. She has elevated right ventricular pressures which undoubtedly are contributing to the chronic lower extremity edema. She actually appears to be intravascularly volume depleted. Serum osmolarity is elevated on admission at 326. Intravenous Bumex has been stopped. IV fluid rate has been decreased today, October 25. Appreciate nephrology consultation and input. Clinically, she has no evidence of left ventricular heart failure. She is on room air. Continue to monitor intake and output and monitor renal function. (2) Acute metabolic encephalopathy: Plan: Present on admission. She seems to be alert and oriented to me but regular caregivers state that her mental status is not normal (3) Acute kidney injury superimposed on CKD: Plan: Parenteral diuretics have been discontinued. IV fluids at a judicious rate restarted on October 24 and rate down titrated today, October 25. Monitor intake and output. Serial labs. Appreciate nephrology consultation and recommendations. Renal ultrasound report negative for obstruction (4) Chronic diastolic congestive heart failure: Plan: Spironolactone was recently added and her Bumex dosage was increased in the outpatient clinic. Unfortunately, this apparently has resulted in intravascular volume depletion and acute renal failure (5) Subconjunctival hemorrhage of right eye: Plan: No vision loss. Asymptomatic. Probably due to recently elevated INR. Should r esolve without treatment (6) Coumadin toxicity: Plan: Resolved with vitamin K. INR therapeutic today at 2.1. Coumadin dosage decre ased from 2 mg daily down to 1 mg daily. Continue daily INR measurements. (7) Essential hypertension: Plan: Stable. Continue current medical manage (8) S/P aortic valve replacement with bioprosthetic valve: Plan: Stable. Continue current medical management Plan Hopeful discharge to [facility] tomorrow, October 26 Admission and Anticipated Discharge Date Admission Date: October 21, 2022 Subjective Alert and oriented. No distress. Clinically she looks better. Creatinine has stabilized at 4.2. IV fluids have been decreased to 50 mL/h. INR is now 2.1. Coumadin decreased to 1 mg daily. Oral potassium supplementation given today. Nephrology entry noted. Hopeful discharge to [facility] tomorrow, October 26. Review of Systems Review of Systems: Constitutional-no fever or chills ENT-no blurred vision, no double vision, no epistaxis, no sore throat. Xerostomia Respiratory-no cough, no wheezing, no shortness of breath Cardiac-no palpitations, no chest pain, no syncope GI-no nausea, vomiting, diarrhea, melena, hematochezia -no urinary retention, no urinary incontinence, no dysuria, no hematuria Musculoskeletal-chronic peripheral edema from chronic venous stasis Skin-no bruising, no rashes, no pruritus Neuro-generalized weakness Psych-depressed affect Physical Exam Physical Exam: General-alert and oriented x3, no fevers, no chills HEENT-head atraumatic and normocephalic, pupils equal and reactive to light, extraocular muscles intact. Right eye medial subconjunctival hemorrhage has not changed Neck-no lymphadenopathy or thyromegaly, trachea midline Chest-clear to auscultation percussion. No rales wheezing or rhonchi Cardiac-irregularly irregular heart rhythm. Controlled rate. Normal S1 and S2 Abdomen-normal bowel sounds, nontender, no hepatosplenomegaly Extremities-chronic venous stasis with chronic peripheral edema bilateral lower extremity Neuro-cranial nerves II through XII intact, motor and sensory function within normal limits, strength symmetrical with generalized weakness , no focal deficits Psych-depressed affect, tearful Results & Data Results & Data Vital Signs (Past 12 Hours) Vital Signs Temp Pulse Pulse Resp BP Pulse Ox O2 Del Method 10/25/22 10:59 36.4 C L 79 18 124/68 95 Room Air 10/25/22 07:32 Room Air 10/25/22 07:32 72 10/25/22 07:16 36.8 C 71 18 109/65 96 Room Air Laboratory Results 10/24/22 05:47 10/25/22 05:46 PG Care Time/CCT Total # of Minutes Spent Total Time Spent with Patient: Total time spent is greater than 50% in coordination of care (as documented) at patient's floor/unit and/or counseling patient: Coding Level of Care Code 44445 SUB INP/OBS CARE 3/50MIN Diagnoses Acute on chronic heart failure with preserved ejection fraction (HFpEF) I50.33 Acute metabolic encephalopathy G93.41 Acute kidney injury superimposed on CKD N17.9; N18.9 Chronic diastolic congestive heart failure I50.32 Subconjunctival hemorrhage of right eye H11.31 Coumadin toxicity T45.511A Essential hypertension I10 S/P aortic valve replacement with bioprosthetic valve Z95.3
[2022-10-25] MEDS ORDERED: WARFARIN SOD 1 MG TAB PO SCH (16:00)
[2022-10-25] MEDS: ACETAMINOPHEN 325 MG TAB PO PRN (18:32)
[2022-10-25] MEDS: PRAVASTATIN SOD 40 MG TAB PO SCH (21:32)
[2022-10-25] MEDS: dilTIAZem HCl 60 MG TAB PO SCH (21:32)
[2022-10-25] MEDS: ASPIRIN 81 MG ECTAB PO SCH (21:32)
[2022-10-25] MEDS: METOPROLOL SUCC 25MG EXT REL TAB PO SCH (21:32)
[2022-10-26] MEDS: LEVOTHYROXINE SODIUM 150 MCG TABLET PO SCH (05:05)
[2022-10-26 06:29] LABS: BUN Creatinine Ratio 16.2 (10-20); Calcium 8.9 mg/dl (8.6-10.3); Creatinine Clr Calc Pharmacy 15.6 ml/min; Est GFR (African American) 11.3 ml/min; Est GFR (Non-African American) 9.7 ml/min; Potassium 3.4 mmol/L (3.5-5.1)
[2022-10-26 06:36] LABS: INR 2.9 (0.9-1.1); Prothrombin Time 29.3 Seconds (9.0-12.0)
[2022-10-26] MEDS: allopurinoL 100 MG TAB PO SCH (08:00)
[2022-10-26] MEDS: dilTIAZem HCL 240 MG CAPCR PO SCH (08:00)
[2022-10-26] MEDS: LANTUS PER UNIT CHARGE SQ SCH (08:06)
[2022-10-26] MEDS: INSULIN ASPART PER UNIT CHARGE SC SCH ×2 (08:07→12:32)
[2022-10-26] MEDS ORDERED: POTASSIUM CHLORIDE CRTAB 20 MEQ TABCR PO ONE (09:02)
--- NOTE | 2022-10-26 09:21 | Nephrology Progress Note ---
Date of Service October 26, 2022 Assessment & Plan (1) Acute kidney injury superimposed on chronic kidney disease: Plan: Non-oliguric. Creatinine remains stable. Electrolytes normal. No emergent indication for AUDIO VISUAL COORDINATOR. Unfortunately, the patient is a poor candidate for residential dialysis due to medical comorbidities. She expressed understanding but is not opposed to the idea of dialysis if needed. She will require close follow up with nephrology. She remains in a positive fluid balance with progressive volume overload consistent with right heart failure. She will need diuresis in the near future. We ultimately may need to compromise some permissive rise in creatinine to achieve a reasonable fluid balance. Medications appropriately dosed for kidney dysfunction. Spironolactone, potassium citrate, and metformin held. (2) Acute exacerbation of congestive heart failure: Plan: Encourage close follow up in the cardiology CHF clinic. Ambulatory O2 assessment has been ordered. (3) Chronic kidney disease with active medical management without dialysis, stage 3 (moderate): Plan: Followed by Dr. Alicea as outpatient. Baseline creatinine ~1.5 mg/dL. 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 Admission and Anticipated Discharge Date Admission Date: October 21, 2022 Subjective No acute events overnight. Maria A is resting comfortably in her bedside chair. She denies dyspnea at rest but admits to feeling slightly more short of breath walking. She continues to report intermittent confusion but also feels that this is improving. She recognizes small lapses. She thought I was Dr. Alicea this morning and again told me that she spoke with Dr. Alicea yesterday as well. She also talked about going to the Coumadin clinic for blood glucose management. She could not recall why she was taking a blood thinner or why this needed to be monitored. Maria A expressed frustration regarding these lapses. She does feel that her strength is improving. She would really like to avoid going to rehab but also expressed some understanding about difficulties returning home. She told me that she has not been able to talk to anyone regarding what rehab facilities are being considered. She denies chest pain or palpitations. No lightheadedness or dizziness. LE edema increased. She is trying to keep her feet elevated as much as possible. Review of Systems Review of Systems: All systems reviewed & are unremarkable except as noted in HPI & below Physical Exam Constitutional: well developed and + morbidly obese; no acute distress Eyes: + conjunctival abnormality (subconjunctival hemorrhage); no scleral abnormality and no corneal abnormality ENMT: Mouth: no oral mucosal abnormality and oral mucous membranes not dry Neck: normal visual inspection, trachea midline and + thick neck Respiratory: normal respiratory effort Auscultation: lungs clear to auscultation bilaterally, + diminished lung sounds and + rales (soft rales appreciated bilaterally) Cardiovascular: Rate/Rhythm: regular rate Heart Sounds: normal S1 and normal S2 Extremities: + edema (4+ pitting BL LE ) Musculoskeletal: Extremities: no cyanosis and no clubbing Skin: normal turgor; no jaundice Neurologic: Motor/Sensory: no tremor and no asterixis Psychiatric: Orientation: alert and oriented x 3 Results & Data Vital Signs (Past 12 Hours) Vital Signs Temp Pulse Pulse Resp BP BP Pulse Ox 10/26/22 07:17 36.6 C 75 18 119/65 96 10/26/22 03:10 36.4 C L 66 20 114/61 94 10/25/22 23:00 94 H 10/25/22 23:40 36.8 C 84 20 117/69 92 10/25/22 21:40 O2 Del Method 10/26/22 07:17 Room Air 10/26/22 03:10 Room Air 10/25/22 23:00 10/25/22 23:40 Room Air 10/25/22 21:40 Room Air Laboratory Results Laboratory Results - last 24 hr 10/25/22 10/25/22 10/25/22 11:01 16:21 20:16 PT INR Sodium Potassium Chloride Carbon Dioxide Anion Gap BUN Creatinine Est Cr Clr Drug Dosing Est GFR ( Amer) Est GFR (Non-Af Amer) BUN/Creatinine Ratio Glucose POC Glucose 149 H 137 H 158 H Calcium 10/26/22 10/26/22 10/26/22 05:53 05:53 07:19 PT 29.3 H INR 2.9 H Sodium 140 Potassium 3.4 L Chloride 106 Carbon Dioxide 23 Anion Gap 11 BUN 68 H Creatinine 4.20 H Est Cr Clr Drug Dosing 15.6 Est GFR ( Amer) 11.3 Est GFR (Non-Af Amer) 9.7 BUN/Creatinine Ratio 16.2 Glucose 118 H POC Glucose 121 H Calcium 8.9 PG Care Time/CCT Total # of Minutes Spent Total Time Spent with Patient: Total time spent is greater than 50% in coordination of care (as documented) at patient's floor/unit and/or counseling patient: Coding Level of Care Code 66649 SUB INP/OBS CARE MIN Diagnoses Acute kidney injury superimposed on chronic kidney disease N17.9; N18.9 Acute exacerbation of congestive heart failure I50.9 Chronic kidney disease with active medical management without dialysis, stage 3 (moderate) N18.30
--- NOTE | 2022-10-26 12:52 | Discharge Summary ---
Date of Service October 26, 2022 Admission HPI Per Admitting Provider Maria A is a 77-year-old female presents with 2 days of progressively worsening confusion. Patient does not remember taking her pills in the last 2 days, was found with multiple pills in a medication bowl. History limited by confusion. Oriented to name only. Awakens easily, but does not answer quesitons appropriately. Somolent Reports she has been confused for the last day or 2 "I just feel kind of crazy ". She is aware she is confused and somnolent, and notes she feels foggy Reports that she thinks she took her morning medicines this morning but is not really sure Denies chest pain, chest pressure, abdominal pain. Is not sure if her legs are more swollen than normal, notes they tend to be red and swollen +shortness of breath. not sure how long has been going on. 'At least 23' Medical History: Reviewed Medications: Reviewed Surgical History: Reviewed Family history: Reviewed Allergies: Reviewed Social History: Reviewed in Code Status: DNR/DNI, confirmed with patient and with prior documented Principal Diagnosis Acute on chronic kidney disease, Coumadin toxicity, Sub conjunctival hemorrhage OD Discharge Exam General-alert and oriented x3, no fevers, no chills HEENT-head atraumatic and normocephalic, pupils equal and reactive to light, extraocular muscles intact. Right eye medial subconjunctival hemorrhage is resolving Neck-no lymphadenopathy or thyromegaly, trachea midline Chest-clear to auscultation percussion. No rales wheezing or rhonchi Cardiac-irregularly irregular heart rhythm. Controlled rate. Normal S1 and S2 Abdomen-normal bowel sounds, nontender, no hepatosplenomegaly Extremities-chronic venous stasis with chronic peripheral edema bilateral lower extremity Neuro-cranial nerves II through XII intact, motor and sensory function within normal limits, strength symmetrical with generalized weakness , no focal deficits Psych-depressed affect, tearful Discharge Data Allergies Allergy/AdvReac Type Severity Reaction Status Date / Time Sulfa (Sulfonamide Allergy Severe ANAPHYLAXIS Verified 10/16/22 11:38 Antibiotics) Consultations 10/21/22 12:24 ED Decision to Admit Stat 10/21/22 19:17 Consult Nephrology Routine Ordered Studies 10/21/22 10:24 CT head/brain wo con Stat 10/22/22 10:53 US Renal Bladder [US renal/blad retro comp] Urgent Hospital Course (1) Acute on chronic heart failure with preserved ejection fraction (HFpEF): Acute left ventricular failure ruled out. She has elevated right ventricular pressures which undoubtedly are contributing to the chronic lower extremity edema. She actually appears to be intravascularly volume depleted. Serum osmolarity is elevated on admission at 326. Intravenous Bumex has been stopped. She received intravenous fluids while hospitalized but creatinine remains elevated at 4.2. This will need to be followed and hopefully will improve with time. Appreciate nephrology consultation and input. Clinically, she has no evidence of left ventricular heart failure. She is on room air. (2) Acute metabolic encephalopathy: Present on admission. Now resolved (3) Acute kidney injury superimposed on CKD: Parenteral diuretics have been discontinued. She received some IV fluids at a judicious rate while hospitalized. Monitor intake and output. Serial labs. Appreciate nephrology consultation and recommendations. Renal ultrasound report negative for obstruction (4) Chronic diastolic congestive heart failure: Spironolactone was recently added and her Bumex dosage was increased in the outpatient clinic. Unfortunately, this apparently has resulted in intravascular volume depletion and acute renal failure. Spironolactone will be discontinued indefinitely (5) Subconjunctival hemorrhage of right eye: No vision loss. Asymptomatic. Probably due to recently elevated INR. Should resolve without treatment. Improving (6) Coumadin toxicity: Resolved with vitamin K. INR therapeutic today at 2.9. She is on low-dose Coumadin therapy. INR will need to be watched closely. (7) Essential hypertension: Stable. Continue current medical manage (8) S/P aortic valve replacement with bioprosthetic valve: Stable. Continue current medical management Plan Discharge to Center care today, October 26 Total Time Total Time Spent Total Time Spent (In Minutes): 45 minutes Discharge Plan Discharge Items Patient Disposition: Transfer [facility] Reason For Visit: AMS,CHF,ERIN ON CKD Discharge Diagnosis: Suspected excessive diuresis with intravascular volume depletion, acute on chronic kidney disease, Coumadin toxicity, Sub conjunctival hemorrhage OD Activity: Resume your previous activity Non-emergency contact: Primary Care Provider Call non-emergency contact if: your symptoms worsen Follow-up/Referrals: Yamileth Salazar MD [Primary Care Provider] - 10/30/22 10:00 am Diet: Regular and Heart Healthy Addtl Attending Provider Instructions: Spironolactone has been discontinued indefinitely. INR Coumadin lab testing will be done every Saturday and Saturday for now. Hold Coumadin if INR is greater than 2.8 until the next INR is drawn and known Pending Studies at Discharge: No Stand-Alone Forms: My [facility] Skilled Items Patient informed of condition?: Yes DNR: Yes Discharge Level of Care: Skilled Communicable Disease: No Discharge Prognosis: Stable Lines: None Urinary Catheter: No Medications and DC Order Prescriptions: New warfarin 1 mg tablet 1 mg PO DAILY Qty: 1 0RF Continued acetaminophen 325 mg capsule 650 mg PO QID PRN (Reason: pain) Rx Instructions: unable to verify with pharmacy aspirin [Michael Low Dose Aspirin] 81 mg tablet,delayed release (DR/EC) 81 mg PO QPM Qty: 0 Rx Instructions: unable to verify with pharmacy metoprolol succinate 25 mg tablet extended release 24 hr 25 mg PO HS Qty: 90 3RF Rx Instructions: Filled in july allopurinol 100 mg tablet 100 mg PO DAILY Qty: 90 3RF metformin 500 mg tablet extended release 24 hr 1,000 mg PO BID Qty: 360 1RF diltiazem HCl [Tiazac] 240 mg capsule,extended release 24 hr 240 mg PO QAM Qty: 90 3RF Novolin R Regular U100 Insulin 100 unit/mL solution 8 unit SQ TIDM Patient Comments: WITH SLIDING SCALE Rx Instructions: Per pharmacy- can be bought over the counter, doesn't show on her profile. Per pharmacy- can be bought over the counter, doesn't show on her profile. TID Novolin N NPH U-100 Insulin 100 unit/mL suspension 18 unit SQ QPM Rx Instructions: Per pharmacy- can be bought over the counter, doesn't show on her profile. Relion brand timolol maleate 0.5 % drops, once daily 1 drp ophthalmic (eye) DAILY Rx Instructions: R EYE 1 X DAILY levothyroxine 150 mcg tablet 150 mcg PO DAILY Qty: 30 5RF Rx Instructions: Take before breakfast pravastatin 80 mg tablet 80 mg PO HS Qty: 90 3RF potassium citrate 10 mEq (1,080 mg) tablet extended release 1,080 mg PO BID Qty: 60 5RF diltiazem HCl 60 mg tablet 60 mg PO HS Qty: 90 3RF (DME) Wheelchair (Manual) Device See Rx Instructions .Route Qty: 1 0RF Rx Instructions: As directed bumetanide 2 mg tablet 4 mg PO BID Qty: 120 3RF Hold Instructions: ERIN azelastine 0.15 % (205.5 mcg) spray,non-aerosol 1 sprays INTNAS DAILY PRN (Reason: ALLERGIES) Rx Instructions: Unable to verify administer into each nostril ergocalciferol (vitamin D2) 1,250 mcg (50,000 unit) capsule 0 unit PO MONTHLY Rx Instructions: last filled in mar 2021 cetirizine 10 mg tablet 10 mg PO QAM PRN (Reason: Allergy Symptoms) Rx Instructions: Unable to verify Discontinued spironolactone 25 mg tablet 25 mg PO DAILY Qty: 30 2RF Hold Instructions: ERIN warfarin 2 mg tablet See Rx Instructions PO .COMPLEX Rx Instructions: orally; TAKE 1MG EVERY SATURDAY, SATURDAY, SATURDAY and 2mg x [address] [facility] Discharge Orders: Discharge Order (Routine); Ordered 10/26/22 Ordered By: Keith Mondragon Admission Data Admit Date/Time: 10/21/22 13:02 Attending Provider: Keith Mondragon Admit Provider: Ron Hoffmann Primary Care Provider: Yamileth Salazar Other Providers: Ron Hoffmann ; Mike Clancy ; [facility] [place] Coding Level of Care Code 14799 INP/OBS DISCH >30 MIN Diagnoses Acute on chronic heart failure with preserved ejection fraction (HFpEF) I50.33 Acute metabolic encephalopathy G93.41 Acute kidney injury superimposed on CKD N17.9; N18.9 Chronic diastolic congestive heart failure I50.32 Subconjunctival hemorrhage of right eye H11.31 Coumadin toxicity T45.511A Essential hypertension I10 S/P aortic valve replacement with bioprosthetic valve Z95.3
== END 2022-10-26 13:11 | DRG 291 ==
LOC: ED 09:56 → 2E 13:02 → SUATTDRO 13:02 → 2E 14:50

== ENCOUNTER 2022-11-15 11:44 | Inpatient (IN) ==
--- NOTE | 2022-11-15 12:08 | Emergency Department Note ---
Impression & Plan Acute dyspnea, Leg swelling, Acute exacerbation of CHF (congestive heart failure), Pulmonary edema, Non-ST elevation GA (NSTEMI) ED Provider Note HISTORY OF PRESENT ILLNESS: Patient is a 77-year-old female presenting with shortness of breath and leg swelling. Patient presents from [facility]. She reportedly has been having increasing shortness of breath and leg swelling over the last 20 days. She has reportedly gained 11 pounds since last week per her report. The care facility reports the patient was more confused over the last week. She just finished a course of antibiotics for urinary tract infection. Patient reports she feels very short of breath and that is very hard for her to stand up secondary to her leg swelling and shortness of breath. Denies any nausea or vomiting. Denies any chest pain. Patient is on Coumadin. ROS: as above PHYSICAL EXAM: Constitutional: Patient appears in no acute distress. Morbidly obese HENT: Head: Normocephalic and atraumatic. Eyes: EOMI, PERRL Mouth/Throat: Mucous membranes moist. Neck: Trachea midline. Neck supple. Cardiovascular: Irregular rhythm. No murmurs, rubs or gallops. Intact distal pulses. Pulmonary/Chest: No respiratory distress. Breath sounds clear and equal bilaterally. No wheezes or rales. Abdominal: Abdomen soft, no tenderness, rebound or guarding. Musculoskeletal: Lymphedema to the bilateral lower extremities. Skin: Warm and dry. Erythema to bilateral lower extremities extending to knees Neurological: Alert and keenly responsive. CN II-XII grossly intact, moving all extremities equally and fully. MDM: - Vitals signs stable. - History obtained via patient and EMS. Patient presents with shortness of breath and lower extremity edema. Patient reportedly has been having increasing shortness of breath and leg swelling over the last 20 days. She had 11 pound weight gain in the last week per report. Patient denies any chest pain. She is on Coumadin to - Chronic conditions affecting care: Afib (on coumadin); aortic stenosis; CAD; CKD; DM-2; HTN; HLD - Differential diagnoses include, but are not limited to: Congestive heart failure; acute coronary syndrome; COPD/asthma exacerbation; pulmonary edema; pulmonary embolism; pneumonia; pneumothorax; viral syndrome - Order placed for continuous cardiac monitoring. At this time, monitor showed rate of 77 bpm with irregular rhythm, per my interpretation. - External medical records reviewed. EMS run sheet reviewed. Patient was vitally stable in route. No medications given prehospital - EKG reviewed by myself showed A-fib. Rate bradycardic at 58 bpm. QTc 488. No acute ischemic changes. - Laboratory workup interpreted by myself showed normal WBC; chronic anemia; CKD; elevated troponin (32.4); elevated BNP (893) - CXR shows cardiomegaly with evidence of pulmonary edema, per my interpretation - NSTEMI likely type II nature secondary to patient's heart failure exacerbation - Patient given 20 mg of IV Lasix - COVID negative - Discussion was had with dialysis social worker about patient's case and need for admission - Hospitalist consulted for admission - Patient admitted to [facility] for further evaluation and management. ASSESSMENT AND PLAN: Diagnosis: Lower extremity edema; shortness of breath; CHF exacerbation; NSTEMI; pulmonary edema Plan: Admit Past Med/Surg History Medical History A-fib A-fib Anemia Aortic stenosis Atrial flutter Atrial flutter CAD in [place] artery Chronic diastolic congestive heart failure Chronic kidney disease with active medical management without dialysis, stage 3 (moderate) Colon polyps Coronary artery disease Diabetes mellitus due to abnormal insulin Diabetic peripheral neuropathy Essential hypertension Hematuria History of loop recorder Hx of malignant melanoma of skin Hyperlipemia Hyperlipemia Hypertension Hypothyroidism Hypothyroidism Left bundle branch block Mitral regurgitation Obesity, morbid, BMI 40.0-49.9 Pulmonary hypertension Seasonal allergies Type 2 diabetes mellitus Vitamin D deficiency Surgical History H/O aortic valve replacement H/O cardiac catheterization History of carpal tunnel release of both wrists History of colonoscopy History of partial hysterectomy History of transesophageal echocardiography ([facility]) Hx of cyst of breast Hx of right cataract extraction Hx of tonsillectomy S/P aortic valve replacement with bioprosthetic valve S/P CABG (coronary artery bypass graft) Status post hernia repair (11/24/18) [place] teeth removed Family History Mother Family history of diabetes mellitus Grandmother (Maternal) Family history of diabetes mellitus Grandmother (Paternal) Family history of diabetes mellitus Aunt Family history of diabetes mellitus Uncle Family history of diabetes mellitus Father FHx: colon cancer Other FHx: esophageal cancer FHx: heart disease No family history of adverse response to anesthesia Social History Smoking Status: Never smoker Second Hand Exposure: No; Do You Dip or Chew Tobacco: No; Hx Alcohol Use: No Hx Substance Use: No Preferred Language: Czech Communication Ability: Effective Visual Impairment: No Limitations Power Switchboard Operator Required: No Beliefs That Will Affect Care: None marital status: Current Living Situation: Spouse Feels Safe at Home: Yes caffeine: No Seatbelt Use: always Assistive Devices: Walker Allergies Allergies Allergy/AdvReac Type Severity Reaction Status Date / Time Sulfa (Sulfonamide Allergy Severe ANAPHYLAXIS Verified 11/08/22 13:42 Antibiotics) Home Meds Home Medications Medication Instructions Recorded Confirmed aspirin 81 mg tablet,delayed 81 mg PO QPM ##0 10/19/18 11/08/22 release (Michael Low Dose Aspirin) azelastine 205.5 mcg (0.15 %) 1 sprays intranasal DAILY PRN 10/22/18 11/08/22 nasal spray ALLERGIES acetaminophen 325 mg capsule 650 mg PO QID PRN pain 07/16/22 11/08/22 cetirizine 10 mg tablet 10 mg PO QAM PRN Allergy Symptoms 08/19/22 11/08/22 insulin NPH isoph U-100 human 100 18 unit subcut QPM 09/11/22 11/08/22 unit/mL subcutaneous suspension (Novolin N NPH U-100 Insulin isophane) insulin regular human 100 unit/mL 8 unit subcut TIDM 09/11/22 11/08/22 injection solution (Novolin R Regular U-100 Insulin) timolol maleate 0.5 % once daily 1 drp ophthalmic (eye) DAILY 09/11/22 11/08/22 eye drops ergocalciferol (vitamin D2) 1,250 0 unit PO MONTHLY 10/21/22 11/08/22 mcg (50,000 unit) capsule amoxicillin 250 mg capsule 250 mg PO .COMPLEX 11/08/22 11/08/22 levothyroxine 175 mcg tablet 175 mcg PO DAILY 11/08/22 11/08/22 Previous Rx's Medication Instructions Recorded metoprolol succinate 25 mg 25 mg PO HS #90 tabs 10/25/21 tablet,extended release 24 hr allopurinol 100 mg tablet 100 mg PO DAILY #90 tabs 04/17/22 diltiazem HCl 60 mg tablet 60 mg PO HS #90 tabs 04/18/22 metformin 500 mg tablet,extended 1,000 mg PO BID #360 tabs 06/12/22 release 24 hr diltiazem HCl 240 mg capsule,24 240 mg PO QAM #90 caps 07/05/22 hr,extended release (Tiazac) Wheelchair (Manual) #1 ea 07/12/22 potassium citrate 10 mEq (1,080 1,080 mg PO BID #60 tabs 10/08/22 mg) tablet,extended release pravastatin 80 mg tablet 80 mg PO HS #90 tabs 10/08/22 bumetanide 2 mg tablet 4 mg PO BID #120 tabs 10/16/22 warfarin 1 mg tablet 1 mg PO DAILY #1 tab 10/26/22 Results & Data (ED) Vital Signs Vital Signs - 24 hr 11/15/22 11:46 11/15/22 11:46 11/15/22 11:45 Temperature 36.4 C 36.4 C Temperature Source Oral Oral Pulse Rate 77 72 Pulse Rhythm Regular Respiratory Rate 22 22 Respiratory Effort / Characteristics Spontaneous Spontaneous Respiratory Depth Normal Normal Respiratory Pattern Regular Regular Blood Pressure 113/65 Blood Pressure [Right Arm] 113/65 Blood Pressure Mean 81 Blood Pressure Mean [Right Arm] 81 Blood Pressure Position Left Lateral Blood Pressure Position [Right Arm] Left Lateral Pulse Oximetry 95 95 Oxygen Delivery Method Nasal Cannula Nasal Cannula Oxygen Flow Rate 2 2 Sepsis Recent Fever Within 48 Hours No Sepsis New/Unexplained Change in Mental Status No Sepsis Action Taken by Nursing No Action Required 11/15/22 12:06 11/15/22 13:26 Temperature Temperature Source Pulse Rate Pulse Rhythm Respiratory Rate 16 Respiratory Effort / Characteristics Non-Labored Spontaneous Respiratory Depth Normal Respiratory Pattern Regular Blood Pressure Blood Pressure [Right Arm] 123/68 Blood Pressure Mean Blood Pressure Mean [Right Arm] 86 Blood Pressure Position Blood Pressure Position [Right Arm] Semi-fowlers Pulse Oximetry 95 95 Oxygen Delivery Method Nasal Cannula Nasal Cannula Oxygen Flow Rate 2 2 Sepsis Recent Fever Within 48 Hours Sepsis New/Unexplained Change in Mental Status Sepsis Action Taken by Nursing Laboratory Data 11/15/22 11:45 11/15/22 11:45 Lab Results 11/15/22 11/15/22 11/15/22 Range/Units 11:45 11:45 11:45 WBC 8.04 (4.8-10.8) K/ul RBC 3.19 L (4.20-5.40) M/uL Hgb 8.7 L (12.0-16.0) g/dl Hct 28.1 L (37.0-47.0) % MCV 88.1 (80.0-100.0) fL MCH 27.3 (25.0-34.0) pg MCHC 31.0 L (32.0-36.0) g/dL RDW Std Deviation 52.6 H (36.4-46.3) fL RDW Coeff of [place] 16.8 H (11.5-14.5) % Plt Count 181 (130-400) K/uL MPV 10.2 (9.4-12.4) fL Immature Gran % (Auto) 0.5 % Neut % (Auto) 71.4 % Lymph % (Auto) 13.1 % [place] % (Auto) 10.9 % Eos % (Auto) 3.4 % Baso % (Auto) 0.7 % Neut # (Auto) 5.74 (1.40-6.50) K/uL Lymph # (Auto) 1.05 L (1.20-3.40) K/uL [place] # (Auto) 0.88 H (0.11-0.59) K/uL Eos # (Auto) 0.27 (0.00-0.50) K/uL Baso # (Auto) 0.06 (0.00-0.20) K/uL Immature Gran # (Auto) 0.04 (0.01-0.20) K/uL Sodium 138 (136-145) mmol/L Potassium 4.3 (3.5-5.1) mmol/L Chloride 104 (98-107) mmol/L Carbon Dioxide 25 (21-32) mmol/L Anion Gap 9 (3-11) BUN 67 H (6-23) mg/dl Creatinine 3.88 H (0.6-1.2) mg/dl Est Cr Clr Drug Dosing 18.0 ml/min Est GFR ( Amer) 12.4 ml/min Est GFR (Non-Af Amer) 10.7 ml/min BUN/Creatinine Ratio 17.3 (10-20) Glucose 157 H (70-99(Fasting)) mg/dl Calcium 8.9 (8.6-10.3) mg/dl Total Bilirubin 1.1 H (0.2-1.0) mg/dl AST 21 (13-39) U/L ALT 13 (7-52) U/L Alkaline Phosphatase 112 H (34-104) U/L Troponin I High Sens 32.4 H (0-14) pg/ml B-Natriuretic Peptide 893 H (0-100) pg/ml Total Protein 6.5 (6.0-8.3) gm/dl Albumin 3.5 (3.4-5.0) gm/dl Globulin 3.0 (2.5-4.0) gm/dl Albumin/Globulin Ratio 1.2 (0.9-2) SARS-CoV-2, RNA, NAAT (NEGATIVE) 11/15/22 Range/Units 12:05 WBC (4.8-10.8) K/ul RBC (4.20-5.40) M/uL Hgb (12.0-16.0) g/dl Hct (37.0-47.0) % MCV (80.0-100.0) fL MCH (25.0-34.0) pg MCHC (32.0-36.0) g/dL RDW Std Deviation (36.4-46.3) fL RDW Coeff of [place] (11.5-14.5) % Plt Count (130-400) K/uL MPV (9.4-12.4) fL Immature Gran % (Auto) % Neut % (Auto) % Lymph % (Auto) % [place] % (Auto) % Eos % (Auto) % Baso % (Auto) % Neut # (Auto) (1.40-6.50) K/uL Lymph # (Auto) (1.20-3.40) K/uL [place] # (Auto) (0.11-0.59) K/uL Eos # (Auto) (0.00-0.50) K/uL Baso # (Auto) (0.00-0.20) K/uL Immature Gran # (Auto) (0.01-0.20) K/uL Sodium (136-145) mmol/L Potassium (3.5-5.1) mmol/L Chloride (98-107) mmol/L Carbon Dioxide (21-32) mmol/L Anion Gap (3-11) BUN (6-23) mg/dl Creatinine (0.6-1.2) mg/dl Est Cr Clr Drug Dosing ml/min Est GFR ( Amer) ml/min Est GFR (Non-Af Amer) ml/min BUN/Creatinine Ratio (10-20) Glucose (70-99(Fasting)) mg/dl Calcium (8.6-10.3) mg/dl Total Bilirubin (0.2-1.0) mg/dl AST (13-39) U/L ALT (7-52) U/L Alkaline Phosphatase (34-104) U/L Troponin I High Sens (0-14) pg/ml B-Natriuretic Peptide (0-100) pg/ml Total Protein (6.0-8.3) gm/dl Albumin (3.4-5.0) gm/dl Globulin (2.5-4.0) gm/dl Albumin/Globulin Ratio (0.9-2) SARS-CoV-2, RNA, NAAT NEGATIVE (NEGATIVE) Administered Medications Discontinued Medications Furosemide (Furosemide Inj 20 Mg/2 Ml Vial) 20 mg IV ONE ONE Stop: 11/15/22 12:54 Last Admin: 11/15/22 13:41 Dose: 20 mg Documented By: CHARISSA Imaging Data Radiologist's Impression: Chest X-Ray 11/15/22 11:59 SINGLE VIEW CHEST CLINICAL HISTORY: Atypical chest pain. FINDINGS: An AP, portable, upright chest radiograph is compared to study dated 10/23/2022 and correlated with chest CT dated 08/23/2022. The examination is degraded by portable technique and patient rotation. The patient is status post midline sternotomy and cardiac valve surgery. The heart is enlarged noting atherosclerotic calcification of the thoracic aorta. There is evidence of congestive failure. Multifocal bilateral airspace opacities likely representing pulmonary edema. No large pleural effusion or pneumothorax is seen. The skeletal structures are osteopenic. The bony thorax is grossly intact. IMPRESSION: 1. Cardiomegaly with evidence of congestive failure. 2. Bilateral airspace opacities likely representing pulmonary edema. Correlate clinically for evidence of a superimposed infectious/inflammatory pneumonitis. Radiographic follow-up to resolution is recommended. ACT 112: Negative or not required by law. Electronically signed by: Cortez David M.D. 11/15/2022 12:37 PM Discharge Plan Visit Data Chief Complaint: Swelling/Edema to Extremity Stated Complaint: SWELLING TO LOWER LEGS ED Provider: Gladys Blanc Discharge Problem: Acute dyspnea, Leg swelling, Acute exacerbation of CHF (congestive heart failure), Pulmonary edema, Non-ST elevation GA (NSTEMI) Forms Stand Alone Forms: My [facility] [place] [employer] Prescriptions Prescriptions: No Action acetaminophen 325 mg capsule 650 mg PO QID PRN (Reason: pain) Rx Instructions: unable to verify with pharmacy aspirin [Michael Low Dose Aspirin] 81 mg tablet,delayed release (DR/EC) 81 mg PO QPM Qty: 0 Rx Instructions: unable to verify with pharmacy metoprolol succinate 25 mg tablet extended release 24 hr 25 mg PO HS Qty: 90 3RF Rx Instructions: Filled in july allopurinol 100 mg tablet 100 mg PO DAILY Qty: 90 3RF metformin 500 mg tablet extended release 24 hr 1,000 mg PO BID Qty: 360 1RF diltiazem HCl [Tiazac] 240 mg capsule,extended release 24 hr 240 mg PO QAM Qty: 90 3RF Novolin R Regular U100 Insulin 100 unit/mL solution 8 unit SQ TIDM Patient Comments: WITH SLIDING SCALE Rx Instructions: Per pharmacy- can be bought over the counter, doesn't show on her profile. Per pharmacy- can be bought over the counter, doesn't show on her profile. TID Novolin N NPH U-100 Insulin 100 unit/mL suspension 18 unit SQ QPM Rx Instructions: Per pharmacy- can be bought over the counter, doesn't show on her profile. Relion brand timolol maleate 0.5 % drops, once daily 1 drp ophthalmic (eye) DAILY Rx Instructions: R EYE 1 X DAILY pravastatin 80 mg tablet 80 mg PO HS Qty: 90 3RF potassium citrate 10 mEq (1,080 mg) tablet extended release 1,080 mg PO BID Qty: 60 5RF diltiazem HCl 60 mg tablet 60 mg PO HS Qty: 90 3RF (DME) Wheelchair (Manual) Device See Rx Instructions .Route Qty: 1 0RF Rx Instructions: As directed bumetanide 2 mg tablet 4 mg PO BID Qty: 120 3RF Hold Instructions: ERIN amoxicillin 250 mg capsule 250 mg PO .COMPLEX Rx Instructions: 250 mg orally Daily for seven days; levothyroxine 175 mcg tablet 175 mcg PO DAILY azelastine 0.15 % (205.5 mcg) spray,non-aerosol 1 sprays INTNAS DAILY PRN (Reason: ALLERGIES) Rx Instructions: Unable to verify administer into each nostril ergocalciferol (vitamin D2) 1,250 mcg (50,000 unit) capsule 0 unit PO MONTHLY Rx Instructions: last filled in mar 2021 warfarin 1 mg tablet 1 mg PO DAILY Qty: 1 0RF cetirizine 10 mg tablet 10 mg PO QAM PRN (Reason: Allergy Symptoms) Rx Instructions: Unable to verify Referrals Referrals: Yamileth Salazar MD [Physician] -
[2022-11-15 12:20] LABS: Basophils # (auto) 0.06 K/uL (0.00-0.20); Basophils % (auto) 0.7 %; Eosinophils # (auto) 0.27 K/uL (0.00-0.50); Eosinophils % (auto) 3.4 %; Hematocrit (blood only) 28.1 % (37.0-47.0); Hemoglobin 8.7 g/dl (12.0-16.0); Immature Granulocytes # (auto) 0.04 K/uL (0.01-0.20); Immature Granulocytes % (auto) 0.5 %; Lymphocytes # (auto) 1.05 K/uL (1.20-3.40); Lymphocytes % (auto) 13.1 %; Mean Corpuscular Hemoglobin 27.3 pg (25.0-34.0); Mean Corpuscular Volume 88.1 fL (80.0-100.0); Mean Platelet Volume 10.2 fL (9.4-12.4); Monocytes # (auto) 0.88 K/uL (0.11-0.59); Monocytes % (auto) 10.9 %; Neutrophils # (auto) 5.74 K/uL (1.40-6.50); Neutrophils % (auto) 71.4 %; Platelet Count 181 K/uL (130-400); RDW Coefficient of Variation 16.8 % (11.5-14.5); RDW Standard Deviation 52.6 fL (36.4-46.3); Red Blood Count 3.19 M/uL (4.20-5.40); White Blood Count 8.04 K/ul (4.8-10.8)
[2022-11-15 12:34] LABS: Alanine Aminotransferase 13 U/L (7-52); Albumin Globulin Ratio 1.2 (0.9-2); Albumin Level 3.5 gm/dl (3.4-5.0); Alkaline Phosphatase 112 U/L (34-104); Anion Gap 9 (3-11); Aspartate Aminotransferase 21 U/L (13-39); BUN Creatinine Ratio 17.3 (10-20); Bilirubin,Total 1.1 mg/dl (0.2-1.0); Blood Urea Nitrogen 67 mg/dl (6-23); Calcium 8.9 mg/dl (8.6-10.3); Carbon Dioxide 25 mmol/L (21-32); Chloride 104 mmol/L (98-107); Est GFR (African American) 12.4 ml/min; Est GFR (Non-African American) 10.7 ml/min; Glucose 157 mg/dl (70-99(Fasting)); Potassium 4.3 mmol/L (3.5-5.1); Sodium 138 mmol/L (136-145); Total Protein 6.5 gm/dl (6.0-8.3)
--- NOTE | 2022-11-15 12:38 | XRay Report ---
SINGLE VIEW CHEST CLINICAL HISTORY: Atypical chest pain. FINDINGS: An AP, portable, upright chest radiograph is compared to study dated 10/23/2022 and correlate d with chest CT dated 08/23/2022. The examination is degraded by portable technique and patient rotatio n. The patient is status post midline sternotomy and cardiac valve surgery. The heart is enlarged not ing atherosclerotic calcification of the thoracic aorta. There is evidence of congestive failure. Mul tifocal bilateral airspace opacities likely representing pulmonary edema. No large pleural effusion o r pneumothorax is seen. The skeletal structures are osteopenic. The bony thorax is grossly intact. IMPRESSION: 1. Cardiomegaly with evidence of congestive failure. 2. Bilateral airspace opacities likely representing pulmonary edema. Correlate clinically for evidenc e of a superimposed infectious/inflammatory pneumonitis. Radiographic follow-up to resolution is jax mmended. ACT 112: Negative or not required by law. Electronically signed by: Cortez David M.D. 11/15/2022 12:37 PM
[2022-11-15 12:39] LABS: Troponin I High Sensitivity 32.4 pg/ml (0-14)
[2022-11-15] MEDS ORDERED: FUROSEMIDE INJ 20 MG/2 ML VIAL IV ONE (12:53)
--- NOTE | 2022-11-15 15:10 | History & Physical Report ---
Date of Service November 15, 2022 Assessment & Plan (1) Cardiorenal syndrome: (2) Acute exacerbation of CHF (congestive heart failure): Plan: PLAN: Neuro: timolol ophthalmic drops once daily Intermittent confusion -Currently patient has capacity and is interactive. Resp: Dyspnea on exertion -Secondary to acute congestive heart failure CV: Acute exacerbation of the congestive heart failure -Aggressive diuresis -Bumex 2 mg x 1 to be given in the emergency department -Could consider diuretic infusion -Medical records indicate a relative dry weight of 108.8 kg, currently 124.5 kg today Hypertension -240 mg diltiazem every morning, 60 mg diltiazem at night -Metoprolol 25 mg extended release daily -Daily bumetanide 4 mg twice daily on hold Fluids/Renal: Chronic kidney disease stage IV -Consult nephrology for discussion regarding renal replacement therapy versus palliation ID: Aguilera placed 2 days ago for accurate I's and O's at [facility] -Continue Aguilera catheter GI/Nutrition: Hyperlipidemia -Continue pravastatin 80 mg daily Heart healthy diet with fluid restriction of 1500 mL Heme: Systemic anticoagulation with Coumadin -Therapeutic INR despite reported not receiving additional doses DVT prophylaxis: Systemic anticoagulation with Coumadin: Therapeutic INR Endocrine: Diabetes: Insulin-dependent -Continue Novolin NPH U100 18 units at bedtime, with sliding scale Hypothyroidism -Levothyroxine 175 mcg daily Code Status: DNR in event of cardiac arrest Palliative care consult for goals of care/transition to palliation. Discussion with patient and gives me the impression aggressive measures of renal replacement therapy would not be consistent with long-term goals. I believe the patient is rapidly approaching an end-stage terminal condition without meaningful chance of recovery. (3) Chronic kidney disease, stage 4 (severe): History of Present Illness Chief Complaint: Swelling Primary Care Provider: [facility] Patient is a 77-year-old female with a past medical history of coronary artery disease, recurrent exacerbations of congestive heart failure, chronic kidney disease stage V, systemic anticoagulation secondary to CHF and atrial fibrillation, mitral valve regurgitation, diabetes, sleep apnea, peripheral neuropathy who [facility] to approximately 3 weeks ago for increasing lymphedema and care needs related to cardiorenal syndrome. She was sent from [facility] for evaluation of congestive heart failure as her diuretics have been increased and she continues to gain weight despite a fluid restricted diet. Patient is able to participate in the history however she defers mainly to the who is at bedside and acting as primary historian. Reports the major underlying issue is a leaky heart valve which needs repair however she would not survive such a surgery. This is prompting recurrent heart failure and she has chronic kidney disease. The last discussion with nephrology is they would consider possibly renal replacement therapy. [facility] they [facility] a Aguilera to obtain accurate ins and outs, they also discontinued her Coumadin and aspirin secondary to reported hematuria. She denies chest pain, she is short of breath at baseline. She has oxygen on which she does not normally wear. She has been persistently uncomfortable for weeks secondary to lower extremity swelling and weeping wounds. She has to sit recumbent and has not been in a bed in several weeks to sleep. When directly asked about how the quality of life is been for the past couple of months and it was reported to be poor. They understand that the progression of the disease process and treatment was to transition to increased dose of diuretics and if this would did not achieve the desired result possibly consider renal replacement therapy otherwise palliative/hospice care would be the next treatment option. Allergies Allergy/AdvReac Type Severity Reaction Status Date / Time Sulfa (Sulfonamide Allergy Severe ANAPHYLAXIS Verified 11/08/22 13:42 Antibiotics) Home Medications Medication Instructions Recorded Confirmed Type azelastine 205.5 mcg (0.15 %) 1 sprays intranasal DAILY PRN 10/22/18 11/15/22 History nasal spray ALLERGIES metoprolol succinate 25 mg 25 mg PO HS #90 tabs 10/25/21 11/15/22 Rx tablet,extended release 24 hr diltiazem HCl 60 mg tablet 60 mg PO HS #90 tabs 04/18/22 11/15/22 Rx diltiazem HCl 240 mg capsule,24 240 mg PO QAM #90 caps 07/05/22 11/15/22 Rx hr,extended release (Tiazac) Wheelchair (Manual) #1 ea 07/12/22 11/15/22 Rx acetaminophen 325 mg capsule 650 mg PO Q6 PRN Fever Or Pain 07/16/22 11/15/22 History insulin NPH isoph U-100 human 100 18 unit subcut QPM 09/11/22 11/15/22 History unit/mL subcutaneous suspension (Novolin N NPH U-100 Insulin isophane) insulin regular human 100 unit/mL 8 unit subcut TIDM 09/11/22 11/15/22 History injection solution (Novolin R Regular U-100 Insulin) timolol maleate 0.5 % once daily 1 drp ophthalmic (eye) QAM 09/11/22 11/15/22 History eye drops potassium citrate 10 mEq (1,080 1,080 mg PO BID #60 tabs 10/08/22 11/15/22 Rx mg) tablet,extended release pravastatin 80 mg tablet 80 mg PO HS #90 tabs 10/08/22 11/15/22 Rx bumetanide 2 mg tablet 4 mg PO BID #120 tabs 10/16/22 11/15/22 Rx levothyroxine 175 mcg tablet 175 mcg PO DAILY 11/08/22 11/15/22 History cetirizine 5 mg tablet 5 mg PO DAILY PRN .allergies 11/15/22 11/15/22 History Past Med/Surg History Medical History A-fib On Warfarin>FOLLOWED DR. BUCIO A-fib Anemia Aortic stenosis Atrial flutter Atrial flutter CAD in [place] artery Chronic diastolic congestive heart failure Chronic kidney disease with active medical management without dialysis, stage 3 (moderate) Colon polyps Coronary artery disease S/P CABG x 1 with AVR 2016. Diabetes mellitus due to abnormal insulin Diabetic peripheral neuropathy Essential hypertension Hematuria History of loop recorder Implanted AND REMOVED Hx of malignant melanoma of skin s/p simple excision Hyperlipemia Hyperlipemia Hypertension Hypothyroidism Hypothyroidism Left bundle branch block Mitral regurgitation Obesity, morbid, BMI 40.0-49.9 Pulmonary hypertension Seasonal allergies Type 2 diabetes mellitus Vitamin D deficiency Surgical History H/O aortic valve replacement 2017 [facility] [place] ALSO HAD CABG X1 VESSEL H/O cardiac catheterization [facility] - PRIOR TO 2017 SURGERY History of carpal tunnel release of both wrists History of colonoscopy History of partial hysterectomy History of transesophageal echocardiography ([facility]) PRIOR TO SURGERY 2017 Hx of cyst of breast s/p excision Hx of right cataract extraction Hx of tonsillectomy S/P aortic valve replacement with bioprosthetic valve S/P CABG (coronary artery bypass graft) Status post hernia repair (11/24/18) Umbilical hernia with multiple defects with surgimesh 11/24/18 Dr. Chapman [place] teeth removed Family History Mother Family history of diabetes mellitus Grandmother (Maternal) Family history of diabetes mellitus Grandmother (Paternal) Family history of diabetes mellitus Aunt Family history of diabetes mellitus Uncle Family history of diabetes mellitus Father FHx: colon cancer Other FHx: esophageal cancer FHx: heart disease No family history of adverse response to anesthesia Social History Smoking Status: Never smoker Second Hand Exposure: No; Do You Dip or Chew Tobacco: No; Hx Alcohol Use: No Hx Substance Use: No Preferred Language: Danish Communication Ability: Effective Visual Impairment: No Limitations Vacuum Form Operator Required: No Beliefs That Will Affect Care: None marital status: Current Living Situation: Spouse Feels Safe at Home: Yes caffeine: No Seatbelt Use: always Assistive Devices: Walker Physical Exam Physical Exam: General: Alert. nontoxic. Oriented x3 Skin: Warm, dry, changes of chronic venous stasis in bilateral lower extremities with weeping Head: Atraumatic Ears, nose, mouth and throat: airway patent, oxygen nasal cannula present Cardiovascular: Normal peripheral perfusion, irregularly irregular Respiratory: no respiratory distress, mild tachypnea Gastrointestinal: Non distended, rotund, no hepatosplenomegaly, no guarding no rebound Musculoskeletal: Profound lymphedema, changes consistent with chronic venous stasis Results & Data Results & Data Vital Signs (Past 12 Hours) Vital Signs Temp Pulse Resp BP BP Pulse Ox O2 Del Method 11/15/22 13:26 16 123/68 95 Nasal Cannula 11/15/22 12:06 95 Nasal Cannula 11/15/22 11:45 72 11/15/22 11:46 36.4 C 22 113/65 95 Nasal Cannula 11/15/22 11:46 36.4 C 77 22 113/65 95 Nasal Cannula O2 Flow Rate 11/15/22 13:26 2 11/15/22 12:06 2 11/15/22 11:45 11/15/22 11:46 2 11/15/22 11:46 2 Critical Care Results & Data Vital Signs (Past 12 Hours) Vital Signs Temp Pulse Resp BP BP Pulse Ox O2 Del Method 11/15/22 15:00 61 18 120/88 11/15/22 14:31 130/64 11/15/22 14:30 66 20 11/15/22 14:20 62 17 11/15/22 14:10 58 L 17 95 11/15/22 14:01 63 18 123/68 95 11/15/22 13:31 65 16 112/72 93 11/15/22 13:00 61 19 123/77 94 11/15/22 12:50 69 17 88 L 11/15/22 12:40 61 18 94 11/15/22 12:30 74 16 141/86 H 96 11/15/22 12:20 61 22 96 11/15/22 12:10 71 19 96 11/15/22 12:00 83 24 125/66 94 11/15/22 11:46 77 18 95 11/15/22 13:26 16 123/68 95 Nasal Cannula 11/15/22 12:06 95 Nasal Cannula 11/15/22 11:45 72 11/15/22 11:46 36.4 C 22 113/65 95 Nasal Cannula 11/15/22 11:46 36.4 C 77 22 113/65 95 Nasal Cannula O2 Flow Rate 11/15/22 15:00 11/15/22 14:31 11/15/22 14:30 11/15/22 14:20 11/15/22 14:10 11/15/22 14:01 11/15/22 13:31 11/15/22 13:00 11/15/22 12:50 11/15/22 12:40 11/15/22 12:30 11/15/22 12:20 11/15/22 12:10 11/15/22 12:00 11/15/22 11:46 11/15/22 13:26 2 11/15/22 12:06 2 11/15/22 11:45 11/15/22 11:46 2 11/15/22 11:46 2 Lab & Micro Results (Past 24 Hours) RBC 3.19 M/uL (4.20-5.40) L 11/15/22 WBC 8.04 K/ul (4.8-10.8) 11/15/22 Hgb 8.7 g/dl (12.0-16.0) L 11/15/22 Hct 28.1 % (37.0-47.0) L 11/15/22 MCV 88.1 fL (80.0-100.0) 11/15/22 MCH 27.3 pg (25.0-34.0) 11/15/22 MCHC 31.0 g/dL (32.0-36.0) L 11/15/22 RDW Standard Deviation 52.6 fL (36.4-46.3) H 11/15/22 RDW Coefficient of Variation 16.8 % (11.5-14.5) H 11/15/22 Plt Count 181 K/uL (130-400) 11/15/22 MPV 10.2 fL (9.4-12.4) 11/15/22 Neutrophils (%) (Auto) 71.4 % 11/15/22 Lymphocytes (%) (Auto) 13.1 % 11/15/22 Monocytes # (Auto) 0.88 K/uL (0.11-0.59) H 11/15/22 Eosinophils # (Auto) 0.27 K/uL (0.00-0.50) 11/15/22 Immature Granulocyte % (Auto) 0.5 % 11/15/22 Neutrophils # (Auto) 5.74 K/uL (1.40-6.50) 11/15/22 Lymphocytes # (Auto) 1.05 K/uL (1.20-3.40) L 11/15/22 Monocytes # (Auto) 0.88 K/uL (0.11-0.59) H 11/15/22 Eosinophils # (Auto) 0.27 K/uL (0.00-0.50) 11/15/22 Basophils # (Auto) 0.06 K/uL (0.00-0.20) 11/15/22 Immature Granulocyte # (Auto) 0.04 K/uL (0.01-0.20) 3 Na 138 mmol/L (136-145) 11/15/22 K 4.3 mmol/L (3.5-5.1) 11/15/22 Cl 104 mmol/L (98-107) 11/15/22 CO2 25 mmol/L (21-32) 11/15/22 Anion Gap 9 (3-11) 11/15/22 BUN 67 mg/dl (6-23) H 11/15/22 Creatinine 3.88 mg/dl (0.6-1.2) H 11/15/22 Estimated GFR ( Amer) 12.4 ml/min 11/15/22 Estimated GFR (Non-Af Amer) 10.7 ml/min 11/15/22 BUN/Creatinine Ratio 17.3 (10-20) 11/15/22 Glu 157 mg/dl (70-99(Fasting)) H 11/15/22 Ca 8.9 mg/dl (8.6-10.3) 11/15/22 Total Bilirubin 1.1 mg/dl (0.2-1.0) H 11/15/22 AST 21 U/L (13-39) 11/15/22 ALT 13 U/L (7-52) 11/15/22 Alkaline Phosphatase 112 U/L (34-104) H 11/15/22 TP 6.5 gm/dl (6.0-8.3) 11/15/22 Albumin 3.5 gm/dl (3.4-5.0) 11/15/22 Globulin 3.0 gm/dl (2.5-4.0) 11/15/22 Albumin/Globulin Ratio 1.2 (0.9-2) 11/15/22 Calcium Level 8.9 mg/dl (8.6-10.3) 11/15/22 11:45 Venous Blood pH 7.34 (7.36-7.41) L 11/15/22 15:46 Venous Blood Partial Pressure CO2 49 mmHg (38-50) 11/15/22 15:4 6 Venous Blood Partial Pressure O2 34 mmHg 11/15/22 15:46 Venous Blood HCO3 26 mmol/L 11/15/22 15:46 Venous Blood Base Excess 0 mEq/L 11/15/22 15:46 Venous Blood Oxygen Saturation < 60.0 % 11/15/22 15:46 Diagnostic Findings (Past 24 Hours) Chest X-Ray 11/15/22 11:59 SINGLE VIEW CHEST CLINICAL HISTORY: Atypical chest pain. FINDINGS: An AP, portable, upright chest radiograph is compared to study dated 10/23/2022 and correlated with chest CT dated 08/23/2022. The examination is degraded by portable technique and patient rotation. The patient is status post midline sternotomy and cardiac valve surgery. The heart is enlarged noting atherosclerotic calcification of the thoracic aorta. There is evidence of c ongestive failure. Multifocal bilateral airspace opacities likely representing pulmonary edema. No large pleural effusion or pneumothorax is seen. The skeletal structures are osteopenic. The bony thorax is grossly intact. IMPRESSION: 1. Cardiomegaly with evidence of congestive failure. 2. Bilateral airspace opacities likely representing pulmonary edema. Correlate clinically for evidence of a superimposed infectious/inflammatory pneumonitis. Radiographic follow-up to resolution is recommended. ACT 112: Negative or not required by law. Electronically signed by: Cortez David M.D. 11/15/2022 12:37 PM RT Ventilator Mngmt (Last Documented) Ventilator Ordered Settings Respiratory Rate 18 11/15/22 15:00 Ventilator - PT Measurements Respiratory Rate 18 PG Care Time/CCT Total # of Minutes Spent Total Time Spent with Patient: Total time spent is greater than 50% in coordination of care (as documented) at patient's floor/unit and/or counseling patient: Coding Level of Care Code 17321 INT INP/OBS CARE 3/75MIN Diagnoses Cardiorenal syndrome I13.10 Acute exacerbation of CHF (congestive heart failure) I50.9 Chronic kidney disease, stage 4 (severe) N18.4
[2022-11-15] MEDS ORDERED: BUMETANIDE 2 MG in SYRINGE 0 ML IV ONE (15:30)
[2022-11-15 15:54] LABS: Base Excess VBG 0 mEq/L; HCO3 VBG 26 mmol/L; Oxygen Saturation VBG < 60.0 %; PCO2 VBG 49 mmHg (38-50); PO2 VBG 34 mmHg; pH VBG 7.34 (7.36-7.41)
[2022-11-15] MEDS ORDERED: GLUCOSE 40% GEL 15 GM TUBE PO PRN (19:30)
[2022-11-15] MEDS ORDERED: CARBOHYDRATES FOR HYPOGLYCEMIA PO PRN (19:30)
[2022-11-15] MEDS ORDERED: GLUCAGON FOR INJ 1 MG VIAL IM PRN (19:30)
[2022-11-15] MEDS ORDERED: DEXTROSE 50% 50 ML SYRINGE IV PRN (19:30)
[2022-11-15] MEDS ORDERED: GLUCOSE 10 TAB/TUBE PO PRN (19:30)
[2022-11-15] MEDS: PRAVASTATIN SOD 40 MG TAB PO SCH (20:58)
[2022-11-15] MEDS: METOPROLOL SUCC 25MG EXT REL TAB PO SCH (20:58)
[2022-11-15] MEDS ORDERED: INSULIN HUMAN NPH SQ SCH (21:00)
[2022-11-15] MEDS ORDERED: dilTIAZem HCl 60 MG TAB PO SCH (21:00)
[2022-11-15] MEDS: LANTUS PER UNIT CHARGE SC SCH (21:04)
[2022-11-15] MEDS: INSULIN ASPART PER UNIT CHARGE SC SCH (21:04)
[2022-11-15] MEDS: BENZONATATE 100 MG CAPSULE PO SCH (22:10)
[2022-11-16] MEDS: MICONAZOLE NITRATE POWDER 85 GM EXT PRN (02:44)
[2022-11-16] MEDS: LEVOTHYROXINE SODIUM 175 MCG TABLET PO SCH (06:07)
--- NOTE | 2022-11-16 07:47 | Hospitalist Progress Note ---
Date of Service November 16, 2022 Assessment & Plan (1) Cardiorenal syndrome: (2) Acute exacerbation of CHF (congestive heart failure): Plan: Acute on chronic diastolic or HFpEF, heart failure, causing acute respiratory failure with hypoxia Aortic stenosis s/p bioprosthetic AVR: Appropriately functioning bioprosthetic aortic valve on 06/29/22 -Aggressive diuresis Bumex at 2 mg twice daily - weight is down, now negative 4 L Hypertension/PAF -240 mg diltiazem every morning, 60 mg diltiazem at night -Metoprolol 25 mg extended release daily Anticoagulated with Coumadin, inr is up will hold restart until 11/18 - -complicated by SHARI requiring nightly BiPap Chronic kidney disease stage IV -Consult nephrology for discussion regarding renal replacement therapy versus palliation, patient and family do not want to go to renal replacement therapy we will attempt to diurese to improve her symptoms at this time Aguilera placed : Hyperlipidemia -Continue pravastatin 80 mg daily -Heart healthy diet with fluid restriction of 1500 mL Heme: Systemic anticoagulation with Coumadin for atrial fibrillation -Therapeutic INR despite reported not receiving additional doses DVT prophylaxis: Systemic anticoagulation with Coumadin: Therapeutic INR Diabetes: Insulin-dependent -Continue Novolin NPH U100 18 units at bedtime, with sliding scale Hypothyroidism -Levothyroxine 175 mcg daily Code Status: DNR in event of cardiac arrest Palliative care consult for goals of care/transition to palliation. Discussion with patient and , the admission doctor was left with the impression aggressive measures of renal replacement therapy would not be consistent with long-term goals. admitting provider believed the patient is rapidly approaching an end-stage terminal condition without meaningful chance of recovery. (3) Chronic kidney disease, stage 4 (severe): Admission and Anticipated Discharge Date Admission Date: November 15, 2022 Subjective pt is pleasant, is at bedside, did have some weight loss, less edema to LE, will have PT/OT eval Physical Exam Physical Exam: patient is awake and alert card exam is distant but regular lungs are diminished at the base extremities are with 2+ edema , bed dressing is normal Results & Data Results & Data Vital Signs (Past 12 Hours) Vital Signs Temp Pulse Pulse Resp BP BP Pulse Ox 11/16/22 07:36 97.9 F 73 20 138/70 94 11/16/22 07:14 65 11/16/22 04:00 98.2 F 72 18 119/66 94 09/01/23 00:45 11/15/22 23:00 98.6 F 69 18 149/61 H 92 11/15/22 22:34 71 O2 Del Method O2 Flow Rate 11/16/22 07:36 Room Air 11/16/22 07:14 11/16/22 04:00 Nasal Cannula 2 11/16/22 00:45 Nasal Cannula 2 11/15/22 23:00 Nasal Cannula 2 11/15/22 22:34 Laboratory Results reviewed CBC reviewed chemistry PG Care Time/CCT Total # of Minutes Spent Total Time Spent with Patient: Total time spent is greater than 50% in coordination of care (as documented) at patient's floor/unit and/or counseling patient: Coding Level of Care Code 92196 SUB INP/OBS CARE 235MIN Diagnoses Cardiorenal syndrome I13.10 Acute exacerbation of CHF (congestive heart failure) I50.9 Chronic kidney disease, stage 4 (severe) N18.4
[2022-11-16] MEDS: dilTIAZem HCL 240 MG CAPCR PO SCH (08:15)
[2022-11-16] MEDS: BENZONATATE 100 MG CAPSULE PO SCH ×3 (08:15→20:25)
[2022-11-16] MEDS: TIMOLOL MALEATE 0.5% OP SOLN 5 ML BTL OPR SCH (08:16)
[2022-11-16] MEDS: LANTUS PER UNIT CHARGE SC SCH ×2 (08:19→20:26)
[2022-11-16 09:11] LABS: Basophils # (auto) 0.07 K/uL (0.00-0.20); Basophils % (auto) 0.9 %; Eosinophils # (auto) 0.27 K/uL (0.00-0.50); Eosinophils % (auto) 3.5 %; Hematocrit (blood only) 27.6 % (37.0-47.0); Hemoglobin 8.5 g/dl (12.0-16.0); Immature Granulocytes # (auto) 0.03 K/uL (0.01-0.20); Immature Granulocytes % (auto) 0.4 %; Lymphocytes % (auto) 14.1 %; Mean Corpuscular Hemoglobin 28.1 pg (25.0-34.0); Mean Corpuscular Hgb Conc 30.8 g/dL (32.0-36.0); Mean Corpuscular Volume 91.1 fL (80.0-100.0); Mean Platelet Volume 10.4 fL (9.4-12.4); Monocytes # (auto) 0.98 K/uL (0.11-0.59); Monocytes % (auto) 12.5 %; Neutrophils # (auto) 5.36 K/uL (1.40-6.50); Neutrophils % (auto) 68.6 %; Platelet Count 173 K/uL (130-400); RDW Coefficient of Variation 17.1 % (11.5-14.5); RDW Standard Deviation 54.8 fL (36.4-46.3); Red Blood Count 3.03 M/uL (4.20-5.40); White Blood Count 7.81 K/ul (4.8-10.8)
[2022-11-16 09:18] LABS: Albumin Level 3.3 gm/dl (3.4-5.0); BUN Creatinine Ratio 17.3 (10-20); Bilirubin Direct 0.4 mg/dl (0-0.2); Bilirubin,Total 0.9 mg/dl (0.2-1.0); Calcium 8.6 mg/dl (8.6-10.3); Creatinine Clr Calc Pharmacy 17.6 ml/min; Est GFR (African American) 12.7 ml/min; Est GFR (Non-African American) 10.9 ml/min; Magnesium 2.5 mg/dl (1.7-2.4); Phosphorus 5.6 mg/dl (2.5-4.9); Potassium 4.2 mmol/L (3.5-5.1); Total Protein 6.1 gm/dl (6.0-8.3)
[2022-11-16] MEDS: INSULIN ASPART PER UNIT CHARGE SC SCH ×4 (09:24→20:26)
--- NOTE | 2022-11-16 10:18 | Palliative Care Consultation ---
Date of Consultation November 16, 2022 Assessment & Plan (1) Pain: Mr. Bernabe tells me that Jayshree has been complaining of pain in her hip since she has been essentially bed bound. He also notes that she has not tolerated opioid pain medications well after surgery in the past. Will order prn tylenol for pain at this time and monitor. We did discuss use of opioids for dyspnea with her heart failure while on comfort measures. He is agreeable to this. Discussed with RN (2) Palliative care encounter: From record review, it appears that Mrs. Bernabe was a Full code at [facility]. It also appears that she had been planning access for [facility] as outpatient after discussion with referral for AVF after discussion with Dr. Alicea. Dr. Clancy is present in the room at the time of my visit and has been speaking with Mr. Bernabe. They have discussed careful diuresis over the weekend, monitoring her progress with consideration of transition to comfort focused care if she does not have significant improvement. On further discussion, Mr. Bernabe tells me that she has had functional decline for the last several months with confusion and sundowning. He is concerned that she had not been taking her medication properly at home. While in [facility], she was having hallucinations and aski ng him to take her home. He is going through cancer treatment right now and is not able to care for her at home. 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 She enjoys reading and shopping and they spend almost all their time together. She has never specifically talked about what she would want for her care but he tells me that he knows what she would be thinking right now and that she would not want to live like this. He understands that her prognosis is poor and tells me that even at the time of nephrology visit to discuss dialysis, he was concerned that she would not be alive in three months. He agrees with plan for continued trial of diuresis but if she does not tolerate this, he would want to transition to comfort and symptom management only. He asked about hospice and we discussed the possibility of hospice following her if she returned to [facility]. With transition to comfort care, it is possible that she could within days. If she were to plateau, plan would be return to SNF with hospice. He initially told me that if her heart stopped, he would want to try CPR and if didn't work, let her go. We discussed concern that CPR would almost certainly not have the desired outcome and could cause her harm and discomfort. He would want her code status to be DNR/DNI. Mr. Bernabe does not have friends or family in the area. He is a [place] and does [facility] for [facility]. He also notes that he has a nephew in [place] who has been very supportive but he expresses concern about burdening him with his problems. Encouraged him to continue to talk to counselor and family as needed for support. Palliative Care will follow. Case discussed with Dr. Clancy and Dr. Lawler History of Present Illness Reason for Consultation: goals of care Requesting Physician: Dr. Seth Attending Physician: Jd Lawler MD History of Present Illness 77 yo lady with history of CAD, afib, diabetes, sleep apnea, HFpEF and CKD Stage V who is currently residing at [facility]. She was hospitalized earlier this month with CHF exacerbation and presented yesterday with weight gain and incre ased edema. She had approximately 2L negative fluid balance overnight with diuresis. In the last month, her creatinine has been running in the 3-4 range and is currently 3.91 with GFR of 10. She is currently sleeping. Per RN, she has been confused at times. Allergies Allergy/AdvReac Type Severity Reaction Status Date / Time Sulfa (Sulfonamide Allergy Severe ANAPHYLAXIS Verified 11/08/22 13:42 Antibiotics) Home Medications Medication Instructions Recorded Confirmed Type azelastine 205.5 mcg (0.15 %) 1 sprays intranasal DAILY PRN 10/22/18 11/15/22 History nasal spray ALLERGIES metoprolol succinate 25 mg 25 mg PO HS #90 tabs 10/25/21 11/15/22 Rx tablet,extended release 24 hr diltiazem HCl 60 mg tablet 60 mg PO HS #90 tabs 04/18/22 11/15/22 Rx diltiazem HCl 240 mg capsule,24 240 mg PO QAM #90 caps 07/05/22 11/15/22 Rx hr,extended release (Tiazac) Wheelchair (Manual) #1 ea 07/12/22 11/15/22 Rx acetaminophen 325 mg capsule 650 mg PO Q6 PRN Fever Or Pain 07/16/22 11/15/22 History insulin NPH isoph U-100 human 100 18 unit subcut QPM 09/11/22 11/15/22 History unit/mL subcutaneous suspension (Novolin N NPH U-100 Insulin isophane) insulin regular human 100 unit/mL 8 unit subcut TIDM 09/11/22 11/15/22 History injection solution (Novolin R Regular U-100 Insulin) timolol maleate 0.5 % once daily 1 drp ophthalmic (eye) QAM 09/11/22 11/15/22 History eye drops potassium citrate 10 mEq (1,080 1,080 mg PO BID #60 tabs 10/08/22 11/15/22 Rx mg) tablet,extended release pravastatin 80 mg tablet 80 mg PO HS #90 tabs 10/08/22 11/15/22 Rx bumetanide 2 mg tablet 4 mg PO BID #120 tabs 10/16/22 11/15/22 Rx levothyroxine 175 mcg tablet 175 mcg PO DAILY 11/08/22 11/15/22 History cetirizine 5 mg tablet 5 mg PO DAILY PRN .allergies 11/15/22 11/15/22 History Patient History Medical History A-fib On Warfarin>FOLLOWED DR. BUCIO A-fib Anemia Aortic stenosis Atrial flutter Atrial flutter CAD in [place] artery Chronic diastolic congestive heart failure Chronic kidney disease with active medical management without dialysis, stage 3 (moderate) Colon polyps Coronary artery disease S/P CABG x 1 with AVR 2016. Diabetes mellitus due to abnormal insulin Diabetic peripheral neuropathy Essential hypertension Hematuria History of loop recorder Implanted AND REMOVED Hx of malignant melanoma of skin s/p simple excision Hyperlipemia Hyperlipemia Hypertension Hypothyroidism Hypothyroidism Left bundle branch block Mitral regurgitation Obesity, morbid, BMI 40.0-49.9 Pulmonary hypertension Seasonal allergies Type 2 diabetes mellitus Vitamin D deficiency Surgical History H/O aortic valve replacement 2016 [facility] - [facility]INE ALSO HAD CABG X1 VESSEL H/O cardiac catheterization [facility] AND [facility] - PRIOR TO 2017 SURGERY History of carpal tunnel release of both wrists History of colonoscopy History of partial hysterectomy History of transesophageal echocardiography ([facility]) PRIOR TO SURGERY 2017 Hx of cyst of breast s/p excision Hx of right cataract extraction Hx of tonsillectomy S/P aortic valve replacement with bioprosthetic valve S/P CABG (coronary artery bypass graft) Status post hernia repair (11/24/18) Umbilical hernia with multiple defects with surgimesh 11/24/18 Dr. Chapman [place] teeth removed Family History Mother Family history of diabetes mellitus Grandmother (Maternal) Family history of diabetes mellitus Grandmother (Paternal) Family history of diabetes mellitus Aunt Family history of diabetes mellitus Uncle Family history of diabetes mellitus Father FHx: colon cancer Other FHx: esophageal cancer FHx: heart disease No family history of adverse response to anesthesia Social History Smoking Status: Never smoker Second Hand Exposure: No; Do You Dip or Chew Tobacco: No; Hx Alcohol Use: No Hx Substance Use: No Preferred Language: [place]ian Communication Ability: Effective Visual Impairment: No Limitations Talent Associate Required: No Beliefs That Will Affect Care: None marital status: Current Living Situation: Shelter Other Information That Helps Us Care for You: No Feels Safe at Home: Yes Safety Concerns: Feels Safe At This Time caffeine: No Seatbelt Use: always Assistive Devices: CPAP, Oxygen - Continuous and Walker Review of Systems Review of Systems: Unobtainable due to cognitive status Physical Exam Constitutional: + ill appearing; no acute distress Respiratory: normal respiratory effort; no labored breathing Neurologic: Speech / Cognition: + abnormal cognition Results & Data Vital Signs (Past 12 Hours) Vital Signs Temp Pulse Pulse Resp BP BP Pulse Ox 11/16/22 07:36 97.9 F 73 20 138/70 94 11/16/22 07:31 11/16/22 07:14 65 11/16/22 04:00 98.2 F 72 18 119/66 94 11/16/22 00:45 11/15/22 23:00 98.6 F 69 18 149/61 H 92 11/15/22 22:34 71 O2 Del Method O2 Flow Rate 11/16/22 07:36 Room Air 11/16/22 07:31 Nasal Cannula 2 11/16/22 07:14 11/16/22 04:00 Nasal Cannula 2 11/16/22 00:45 Nasal Cannula 2 11/15/22 23:00 Nasal Cannula 2 11/15/22 22:34 PG Care Time/CCT Total # of Minutes Spent Total Time Spent: 110 Total Time Spent with Patient: Total time spent is greater than 50% in coordination of care (as documented) at patient's floor/unit and/or counseling patient: [id number] symptom management, goals of care, hospice, family education and support, coordination of care Coding Level of Care Code 79133 INT INP/OBS CARE 3/75MIN Diagnoses Pain R52 Palliative care encounter Z51.5
--- NOTE | 2022-11-16 11:48 | Nephrology Consultation ---
Date of Consultation November 16, 2022 Assessment & Plan (1) AMS (altered mental status): Etiology unclear. CT reassuring. No obvious infection. No culprit medications identified. No focal neurologic findings on a limited exam. Will defer additional evaluation to the hospitalist team. (2) Acute kidney injury superimposed on chronic kidney disease: Non-oliguric. Bumex 2 mg IV provided to encourage diuresis. Notable fluid retention noted. Clinical presentation suggestive of acute on chronic CRS with predominately signs of R heart failure. Urine notable for WBC's. Culture pending. Repeat imaging deferred pending additional monitoring. Medications appropriately dosed for kidney dysfunction. Spironolactone, potassium citrate, and metformin. Thankfully, there is no emergent indication for [employer]. Electrolytes have been acceptable. Unfortunately, the patient is a poor candidate for custodial dialysis if needed due to medical comorbidities. Her expressed understanding and a desire to proceed with medical management for now. Palliative care consultation appreciated. Repeat labs have been requested. (3) Acute exacerbation of congestive heart failure: Diuresing. IV Bumex provided this AM. Document strict I/O's. Low sodium diet and maintain fluid restriction of <1.5 L/d. (4) Chronic kidney disease with active medical management without dialysis, stage 3 (moderate): Followed by Dr. Alicea as outpatient. Baseline creatinine ~3.7-4.2 mg/dL. 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 History of Present Illness Reason for Consultation: esrd volume control Requesting Physician: Emmett Seth DO Attending Physician: Jd Lawler MD History of Present Illness Mrs Maria A Bernabe is a 77-year-old female with coronary artery disease status post CABG x 1, severe aortic stenosis status post bioprosthetic aortic valve replacement (2017), heart failure with preserved EF, atrial fibrillation/flutter, venous insufficiency, diabetes, hypertension, CKD, and dyslipidemia. She follows in the [facility] nephrology clinic with Dr. Alicea for a history of CKD and nephrolithiasis. Maria A follows with Dr. Bucio in the cardiology clinic as well as with Ria Clark PA-C in the heart failure clinic. I met Maria A in August during a recent admission to [facility]. At that time, she had presented to the hospital with respiratory difficulty and mental status changes. Evaluation demonstrated acute on chronic HFpEF, left-sided opacification on chest x-ray with suspected aspiration pneumonia, and Coumadin toxicity. She was treated with antibiotics and diuretics with clinical improvement. Maria A was discharged to [facility] where she completed rehab prior to returning home. She had follow up in the nephrology clinic with Dr. Alicea at the end of September. She continues to have progressive fluid retention, weakness, and mental status changes. She returned to the hospital for admission last month. Maria A diuresed well with initial IV therapy and was then placed on IVF due to suspected intravascular volume depletion. Creatinine stabilized at ~3.7-4.2 mg/dL following recent hospitalization. She was discharged to [facility]. Dialysis has been discussed multiple times in the past. Maria A had initially established that she would not want dialysis but as kidney function declined she had become more receptive to the idea. During her recent follow up with Dr. Alicea, I referral had been made to Dr. Keenan for AVF placement. Unfortunately, Maria A was readmitted with volume overload and recurrent encephalopathy. She was being managed with Bumex 4mg PO BID at [facility]. Maria A has been non-oliguric. She was provided 20 mg IV furosemide on admission with 2 L of UOP overnight. Fluid intake has been minimal. Maria A remains encephalopathic and not answering questions. CKD attributed to DKD and microvascular changes. Maria A unfortunately had increased fluid retention. During follow up in the cardiology clinic ~1 week ago, Bumex was increased from 3 mg twice daily to 4 mg twice daily and spironolactone 25 mg daily was added. Prior baseline dry weight had been ~116 lbs. Maria A remains in rate controlled atrial fibrillation. She has had good urine output overnight. BP is acceptable. The patient was seen and evaluated in her hospital room this morning. She was laying in bed but not participating in conversation. I met with the patient's . Dr. Parrish (palliative care) was also present during our conversation. I discussed the patient and conversation with Dr. Lawler and Dr. Alicea this afternoon. Maria A's expressed reservations regarding dialysis. His ultimate goal is to keep his comfortable. He expressed understanding regarding her multiple medical comorbidities and overall prognosis. Ideally, he would like to focus on medical treatment to keep her comfortable and provide quality of life. Allergies Allergy/AdvReac Type Severity Reaction Status Date / Time Sulfa (Sulfonamide Allergy Severe ANAPHYLAXIS Verified 11/08/22 13:42 Antibiotics) Home Medications Medication Instructions Recorded Confirmed Type azelastine 205.5 mcg (0.15 %) 1 sprays intranasal DAILY PRN 10/22/18 11/15/22 History nasal spray ALLERGIES metoprolol succinate 25 mg 25 mg PO HS #90 tabs 10/25/21 11/15/22 Rx tablet,extended release 24 hr diltiazem HCl 60 mg tablet 60 mg PO HS #90 tabs 04/18/22 11/15/22 Rx diltiazem HCl 240 mg capsule,24 240 mg PO QAM #90 caps 07/05/22 11/15/22 Rx hr,extended release (Tiazac) Wheelchair (Manual) #1 ea 07/12/22 11/15/22 Rx acetaminophen 325 mg capsule 650 mg PO Q6 PRN Fever Or Pain 07/16/22 11/15/22 History insulin NPH isoph U-100 human 100 18 unit subcut QPM 09/11/22 11/15/22 History unit/mL subcutaneous suspension (Novolin N NPH U-100 Insulin isophane) insulin regular human 100 unit/mL 8 unit subcut TIDM 09/11/22 11/15/22 History injection solution (Novolin R Regular U-100 Insulin) timolol maleate 0.5 % once daily 1 drp ophthalmic (eye) QAM 09/11/22 11/15/22 History eye drops potassium citrate 10 mEq (1,080 1,080 mg PO BID #60 tabs 10/08/22 11/15/22 Rx mg) tablet,extended release pravastatin 80 mg tablet 80 mg PO HS #90 tabs 10/08/22 11/15/22 Rx bumetanide 2 mg tablet 4 mg PO BID #120 tabs 10/16/22 11/15/22 Rx levothyroxine 175 mcg tablet 175 mcg PO DAILY 11/08/22 11/15/22 History cetirizine 5 mg tablet 5 mg PO DAILY PRN .allergies 11/15/22 11/15/22 History Patient History Medical History A-fib On Warfarin>FOLLOWED DR. BUCIO A-fib Anemia Aortic stenosis Atrial flutter Atrial flutter CAD in [place] artery Chronic diastolic congestive heart failure Chronic kidney disease with active medical management without dialysis, stage 3 (moderate) Colon polyps Coronary artery disease S/P CABG x 1 with AVR 2017. Diabetes mellitus due to abnormal insulin Diabetic peripheral neuropathy Essential hypertension Hematuria History of loop recorder Implanted AND REMOVED Hx of malignant melanoma of skin s/p simple excision Hyperlipemia Hyperlipemia Hypertension Hypothyroidism Hypothyroidism Left bundle branch block Mitral regurgitation Obesity, morbid, BMI 40.0-49.9 Pulmonary hypertension Seasonal allergies Type 2 diabetes mellitus Vitamin D deficiency Surgical History H/O aortic valve replacement 2017 [facility] - BOVINE ALSO HAD CABG X1 VESSEL H/O cardiac catheterization [facility] - PRIOR TO 2017 SURGERY History of carpal tunnel release of both wrists History of colonoscopy History of partial hysterectomy History of transesophageal echocardiography ([facility]) PRIOR TO SURGERY 2016 Hx of cyst of breast s/p excision Hx of right cataract extraction Hx of tonsillectomy S/P aortic valve replacement with bioprosthetic valve S/P CABG (coronary artery bypass graft) Status post hernia repair (11/24/18) Umbilical hernia with multiple defects with surgimesh 11/24/18 Dr. Chapman [place] teeth removed Family History Mother Family history of diabetes mellitus Grandmother (Maternal) Family history of diabetes mellitus Grandmother (Paternal) Family history of diabetes mellitus Aunt Family history of diabetes mellitus Uncle Family history of diabetes mellitus Father FHx: colon cancer Other FHx: esophageal cancer FHx: heart disease No family history of adverse response to anesthesia Social History Smoking Status: Never smoker Second Hand Exposure: No; Do You Dip or Chew Tobacco: No; Hx Alcohol Use: No Hx Substance Use: No Preferred Language: Belarusian Communication Ability: Effective Visual Impairment: No Limitations Adjunct Physical Education Instructor Required: No Beliefs That Will Affect Care: None marital status: Current Living Situation: Shelter Other Information That Helps Us Care for You: No Feels Safe at Home: Yes Safety Concerns: Feels Safe At This Time caffeine: No Seatbelt Use: always Assistive Devices: CPAP, Oxygen - Continuous and Walker Review of Systems Review of Systems: Unobtainable due to reduced consciousness Physical Exam Constitutional: well developed, + ill appearing and + morbidly obese; no acute distress Eyes: no scleral abnormality and no corneal abnormality ENMT: Mouth: no oral mucosal abnormality and oral mucous membranes not dry Neck: normal visual inspection, trachea midline and + thick neck Respiratory: + tachypneic Auscultation: lungs clear to auscultation bilaterally, + diminished lung sounds and + rales (soft rales appreciated bilaterally) Cardiovascular: Rate/Rhythm: regular rate Heart Sounds: normal S1 and normal S2 Extremities: + edema (4+ pitting BL LE ) Musculoskeletal: Extremities: no cyanosis and no clubbing Skin: normal turgor; no jaundice Neurologic: Motor/Sensory: no tremor and no asterixis Psychiatric: Orientation: + not alert Results & Data Vital Signs (Past 12 Hours) Vital Signs Temp Pulse Pulse Resp BP Pulse Ox O2 Del Method 11/16/22 11:22 36.6 C 93 H 20 120/75 95 Nasal Cannula 11/16/22 07:36 36.6 C 73 20 138/70 94 Room Air 11/16/22 07:31 Nasal Cannula 11/16/22 07:14 65 11/16/22 04:00 36.8 C 72 18 119/66 94 Nasal Cannula 11/16/22 00:45 Nasal Cannula O2 Flow Rate 11/16/22 11:22 2 11/16/22 07:36 11/16/22 07:31 2 11/16/22 07:14 11/16/22 04:00 2 11/16/22 00:45 2 Laboratory Results Laboratory Results - last 24 hr 11/15/22 11/15/22 11/15/22 11:45 11:45 11:45 WBC 8.04 RBC 3.19 L Hgb 8.7 L Hct 28.1 L MCV 88.1 MCH 27.3 MCHC 31.0 L RDW Std Deviation 52.6 H RDW Coeff of [place] 16.8 H Plt Count 181 MPV 10.2 Immature Gran % (Auto) 0.5 Neut % (Auto) 71.4 Lymph % (Auto) 13.1 Emmons % (Auto) 10.9 Eos % (Auto) 3.4 Baso % (Auto) 0.7 Neut # (Auto) 5.74 Lymph # (Auto) 1.05 L Emmons # (Auto) 0.88 H Eos # (Auto) 0.27 Baso # (Auto) 0.06 Immature Gran # (Auto) 0.04 VBG pH VBG pCO2 VBG pO2 VBG HCO3 VBG O2 Saturation VBG Base Excess Sodium 138 Potassium 4.3 Chloride 104 Carbon Dioxide 25 Anion Gap 9 BUN 67 H Creatinine 3.88 H Est Cr Clr Drug Dosing 18.0 Est GFR ( Amer) 12.4 Est GFR (Non-Af Amer) 10.7 BUN/Creatinine Ratio 17.3 Glucose 157 H POC Glucose Calcium 8.9 Phosphorus Magnesium Total Bilirubin 1.1 H Direct Bilirubin AST 21 ALT 13 Alkaline Phosphatase 112 H Troponin I High Sens 32.4 H B-Natriuretic Peptide 893 H Total Protein 6.5 Albumin 3.5 Globulin 3.0 Albumin/Globulin Ratio 1.2 Nasal Screen MRSA (PCR) SARS-CoV-2, RNA, NAAT 11/15/22 11/15/22 11/15/22 12:05 13:45 15:46 WBC RBC Hgb Hct MCV MCH MCHC RDW Std Deviation RDW Coeff of [place] Plt Count MPV Immature Gran % (Auto) Neut % (Auto) Lymph % (Auto) Emmons % (Auto) Eos % (Auto) Baso % (Auto) Neut # (Auto) Lymph # (Auto) Emmons # (Auto) Eos # (Auto) Baso # (Auto) Immature Gran # (Auto) VBG pH 7.34 L VBG pCO2 49 VBG pO2 34 VBG HCO3 26 VBG O2 Saturation < 60.0 VBG Base Excess 0 Sodium Potassium Chloride Carbon Dioxide Anion Gap BUN Creatinine Est Cr Clr Drug Dosing Est GFR ( Amer) Est GFR (Non-Af Amer) BUN/Creatinine Ratio Glucose POC Glucose Calcium Phosphorus Magnesium Total Bilirubin Direct Bilirubin AST ALT Alkaline Phosphatase Troponin I High Sens 31.8 H B-Natriuretic Peptide Total Protein Albumin Globulin Albumin/Globulin Ratio Nasal Screen MRSA (PCR) SARS-CoV-2, RNA, NAAT NEGATIVE 11/15/22 11/15/22 11/16/22 20:56 21:50 08:07 WBC RBC Hgb Hct MCV MCH MCHC RDW Std Deviation RDW Coeff of [place] Plt Count MPV Immature Gran % (Auto) Neut % (Auto) Lymph % (Auto) Emmons % (Auto) Eos % (Auto) Baso % (Auto) Neut # (Auto) Lymph # (Auto) Emmons # (Auto) Eos # (Auto) Baso # (Auto) Immature Gran # (Auto) VBG pH VBG pCO2 VBG pO2 VBG HCO3 VBG O2 Saturation VBG Base Excess Sodium Potassium Chloride Carbon Dioxide Anion Gap BUN Creatinine Est Cr Clr Drug Dosing Est GFR ( Amer) Est GFR (Non-Af Amer) BUN/Creatinine Ratio Glucose POC Glucose 151 H 111 H Calcium Phosphorus Magnesium Total Bilirubin Direct Bilirubin AST ALT Alkaline Phosphatase Troponin I High Sens B-Natriuretic Peptide Total Protein Albumin Globulin Albumin/Globulin Ratio Nasal Screen MRSA (PCR) Negative SARS-CoV-2, RNA, NAAT 11/16/22 11/16/22 08:20 08:20 WBC 7.81 RBC 3.03 L Hgb 8.5 L Hct 27.6 L MCV 91.1 MCH 28.1 MCHC 30.8 L RDW Std Deviation 54.8 H RDW Coeff of [place] 17.1 H Plt Count 173 MPV 10.4 Immature Gran % (Auto) 0.4 Neut % (Auto) 68.6 Lymph % (Auto) 14.1 Emmons % (Auto) 12.5 Eos % (Auto) 3.5 Baso % (Auto) 0.9 Neut # (Auto) 5.36 Lymph # (Auto) 1.10 L Emmons # (Auto) 0.98 H Eos # (Auto) 0.27 Baso # (Auto) 0.07 Immature Gran # (Auto) 0.03 VBG pH VBG pCO2 VBG pO2 VBG HCO3 VBG O2 Saturation VBG Base Excess Sodium 142 Potassium 4.2 Chloride 108 H Carbon Dioxide 26 Anion Gap 8 BUN 66 H Creatinine 3.81 H Est Cr Clr Drug Dosing 17.6 Est GFR ( Amer) 12.7 Est GFR (Non-Af Amer) 10.9 BUN/Creatinine Ratio 17.3 Glucose 112 H POC Glucose Calcium 8.6 Phosphorus 5.6 H Magnesium 2.5 H Total Bilirubin 0.9 Direct Bilirubin 0.4 H AST 16 ALT 10 Alkaline Phosphatase 103 Troponin I High Sens B-Natriuretic Peptide Total Protein 6.1 Albumin 3.3 L Globulin Albumin/Globulin Ratio Nasal Screen MRSA (PCR) SARS-CoV-2, RNA, NAAT Diagnostic Findings SINGLE VIEW CHEST An AP, portable, upright chest radiograph is compared to study dated 10/23/2022 and correlated with chest CT dated 08/23/2022. The examination is degraded by portable technique and patient rotation. The patient is status post midline sternotomy and cardiac valve surgery. The heart is enlarged noting atherosclerotic calcification of the thoracic aorta. There is evidence of congestive failure. Multifocal bilateral airspace opacities likely representing pulmonary edema. No large pleural effusion or pneumothorax is seen. The skeletal structures are osteopenic. The bony thorax is grossly intact. IMPRESSION: 1. Cardiomegaly with evidence of congestive failure. 2. Bilateral airspace opacities likely representing pulmonary edema. Correlate clinically for evidence of a superimposed infectious/inflammatory pneumonitis. Radiographic follow-up to resolution is recommended. PG Care Time/CCT Total # of Minutes Spent Total Time Spent with Patient: Total time spent is greater than 50% in coordination of care (as documented) at patient's floor/unit and/or counseling patient: Coding Level of Care Code 18001 IN/OBS CONSULT LVL 4,60M Diagnoses AMS (altered mental status) R41.82 Acute kidney injury superimposed on chronic kidney disease N17.9; N18.9 Acute exacerbation of congestive heart failure I50.9 Chronic kidney disease with active medical management without dialysis, stage 3 (moderate) N18.30
[2022-11-16] MEDS ORDERED: BUMETANIDE 2 MG in SYRINGE 0 ML IV ONE (12:00)
[2022-11-16] MEDS: ACETAMINOPHEN 500 MG TAB PO PRN (13:47)
--- NOTE | 2022-11-16 19:04 | XCELERA ---
[id number]
[2022-11-16] MEDS: BUMETANIDE 2 MG in SYRINGE 0 ML IV SCH (19:36)
[2022-11-16] MEDS: METOPROLOL SUCC 25MG EXT REL TAB PO SCH (20:25)
[2022-11-16] MEDS: PRAVASTATIN SOD 40 MG TAB PO SCH (20:26)
[2022-11-17] MEDS: LEVOTHYROXINE SODIUM 175 MCG TABLET PO SCH (05:56)
[2022-11-17 07:12] LABS: Basophils # (auto) 0.04 K/uL (0.00-0.20); Basophils % (auto) 0.6 %; Eosinophils # (auto) 0.24 K/uL (0.00-0.50); Eosinophils % (auto) 3.6 %; Hematocrit (blood only) 28.2 % (37.0-47.0); Immature Granulocytes # (auto) 0.04 K/uL (0.01-0.20); Immature Granulocytes % (auto) 0.6 %; Lymphocytes # (auto) 1.05 K/uL (1.20-3.40); Lymphocytes % (auto) 15.6 %; Mean Corpuscular Hemoglobin 28.8 pg (25.0-34.0); Mean Corpuscular Hgb Conc 31.9 g/dL (32.0-36.0); Mean Corpuscular Volume 90.1 fL (80.0-100.0); Mean Platelet Volume 9.5 fL (9.4-12.4); Monocytes # (auto) 0.81 K/uL (0.11-0.59); Neutrophils # (auto) 4.56 K/uL (1.40-6.50); Neutrophils % (auto) 67.6 %; Platelet Count 164 K/uL (130-400); RDW Coefficient of Variation 17.5 % (11.5-14.5); RDW Standard Deviation 54.8 fL (36.4-46.3); Red Blood Count 3.13 M/uL (4.20-5.40); White Blood Count 6.74 K/ul (4.8-10.8)
[2022-11-17 07:55] LABS: INR 3.3 (0.9-1.1); Prothrombin Time 33.5 Seconds (9.0-12.0)
[2022-11-17 08:02] LABS: BUN Creatinine Ratio 17.4 (10-20); Calcium 8.6 mg/dl (8.6-10.3); Creatinine Clr Calc Pharmacy 17.9 ml/min; Est GFR (Non-African American) 11.2 ml/min; Magnesium 2.5 mg/dl (1.7-2.4); Phosphorus 5.6 mg/dl (2.5-4.9); Potassium 3.8 mmol/L (3.5-5.1)
--- NOTE | 2022-11-17 08:52 | Nephrology Progress Note ---
Date of Service November 17, 2022 Assessment & Plan (1) AMS (altered mental status): Plan: * Resolved * 11/15/[address] negative for mass/bleed. Urine culture negative. No culprit medications identified (2) Acute kidney injury superimposed on chronic kidney disease: Plan: * Admitted w/ decompensated CHF and ERIN/CKD * Suspect mitral valve regurgitation w/ pulmonary HTN contributing * Urine sediment is negative for ATN casts * Renal function has improved w/ diuresis * No acute indication for HD at this time * Palliative Care consultation reviewed. Will continue medical management. If renal function stalls or patient fails to improve, will then need to readdress CHIP FRIER or transition to comfort measures (3) Acute exacerbation of congestive heart failure: Plan: * Patient has diuresed 3.2L since admission * Continue Bumex 2 mg IV BID * Continue low sodium diet and maintain fluid restriction of <1.5 L/d. (4) Chronic kidney disease with active medical management without dialysis, stage 3 (moderate): Plan: * Baseline Cr 1.4 mg/dL. 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 Admission and Anticipated Discharge Date Admission Date: November 15, 2022 Subjective Mrs. Bernabe was evaluated in her hospital room this morning. She was oriented to self, place and month. She reports brisk UO in response to IV diuretic therapy but remains mildly dyspneic at rest. Review of Systems Constitutional: no fever Eyes: no problem reported Ear, Nose, Mouth, Throat: no problem reported Respiratory: + dyspnea Cardiovascular: no chest pain Gastrointestinal: no nausea, no vomiting and no diarrhea/loose stools Genitourinary: no dysuria Integumentary: no rash Physical Exam Constitutional: not in distress Eyes: PERRL, conjunctivae normal, anicteric sclerae ENMT: external ear and nose normal, oropharynx normal Neck: trachea midline, no thyromegaly Respiratory: no respiratory distress Auscultation: + rales (at bases bilaterally) Cardiovascular: Rate/Rhythm: regular rate and regular rhythm Gastrointestinal (Abdomen): normal bowel sounds, soft, nontender, no hepatosplenomegaly Skin: no rashes, warm and dry Results & Data Vital Signs (Past 12 Hours) Vital Signs Temp Pulse Pulse Resp BP Pulse Ox O2 Del Method 11/17/22 07:27 68 11/17/22 03:00 36.4 C L 73 18 117/63 92 Nasal Cannula 09/01/23 23:24 73 11/16/22 23:04 36.3 C L 69 18 126/70 94 Nasal Cannula O2 Flow Rate 11/17/22 07:27 11/17/22 03:00 2 11/16/22 23:24 11/16/22 23:04 2 Laboratory Results Laboratory Tests 11/15/22 11/15/22 11/16/22 05:14 11:45 08:20 WBC Hgb Hct Plt Count Sodium Potassium Chloride Carbon Dioxide BUN Creatinine 3.91 H 3.88 H 3.81 H 11/17/22 11/17/22 05:47 05:47 WBC 6.74 Hgb 9.0 L Hct 28.2 L Plt Count 164 Sodium 143 Potassium 3.8 Chloride 109 H Carbon Dioxide 27 BUN 65 H Creatinine 3.74 H Diagnostic Findings 11/15/22 CXR: 1. Cardiomegaly with evidence of congestive failure. 2. Bilateral airspace opacities likely representing pulmonary edema. Correlate clinically for evidence of a superimposed infectious/inflammatory pneumonitis. Radiographic follow-up to resolution is recommended. PG Care Time/CCT Total # of Minutes Spent Total Time Spent with Patient: Total time spent is greater than 50% in coordination of care (as documented) at patient's floor/unit and/or counseling patient: Coding Level of Care Code 39390 SUB INP/OBS CARE 3/50MIN Diagnoses AMS (altered mental status) R41.82 Acute kidney injury superimposed on chronic kidney disease N17.9; N18.9 Acute exacerbation of congestive heart failure I50.9 Chronic kidney disease with active medical management without dialysis, stage 3 (moderate) N18.30
[2022-11-17] MEDS: INSULIN ASPART PER UNIT CHARGE SC SCH ×4 (09:22→20:18)
[2022-11-17] MEDS: BUMETANIDE 2 MG in SYRINGE 0 ML IV SCH ×2 (09:23→18:01)
[2022-11-17] MEDS: TIMOLOL MALEATE 0.5% OP SOLN 5 ML BTL OPR SCH (09:23)
[2022-11-17] MEDS: BENZONATATE 100 MG CAPSULE PO SCH ×3 (09:23→20:18)
[2022-11-17] MEDS: LANTUS PER UNIT CHARGE SC SCH ×2 (09:28→20:18)
[2022-11-17] MEDS: dilTIAZem HCL 240 MG CAPCR PO SCH (10:23)
[2022-11-17] MEDS ORDERED: WARFARIN SOD 2 MG TAB PO SCH (16:00)
[2022-11-17] MEDS: ACETAMINOPHEN 500 MG TAB PO PRN (20:02)
[2022-11-17] MEDS: METOPROLOL SUCC 25MG EXT REL TAB PO SCH (20:18)
[2022-11-17] MEDS: PRAVASTATIN SOD 40 MG TAB PO SCH (20:19)
[2022-11-18] MEDS: LEVOTHYROXINE SODIUM 175 MCG TABLET PO SCH (05:33)
[2022-11-18 06:51] LABS: Basophils # (auto) 0.04 K/uL (0.00-0.20); Basophils % (auto) 0.6 %; Eosinophils # (auto) 0.26 K/uL (0.00-0.50); Hemoglobin 8.9 g/dl (12.0-16.0); Immature Granulocytes # (auto) 0.02 K/uL (0.01-0.20); Immature Granulocytes % (auto) 0.3 %; Lymphocytes # (auto) 0.98 K/uL (1.20-3.40); Lymphocytes % (auto) 15.1 %; Mean Corpuscular Hemoglobin 27.1 pg (25.0-34.0); Mean Corpuscular Hgb Conc 29.7 g/dL (32.0-36.0); Mean Corpuscular Volume 91.5 fL (80.0-100.0); Mean Platelet Volume 9.4 fL (9.4-12.4); Monocytes # (auto) 0.76 K/uL (0.11-0.59); Monocytes % (auto) 11.7 %; Neutrophils # (auto) 4.41 K/uL (1.40-6.50); Neutrophils % (auto) 68.3 %; Platelet Count 168 K/uL (130-400); RDW Coefficient of Variation 17.6 % (11.5-14.5); RDW Standard Deviation 56.4 fL (36.4-46.3); Red Blood Count 3.28 M/uL (4.20-5.40); White Blood Count 6.47 K/ul (4.8-10.8)
--- NOTE | 2022-11-18 07:11 | Hospitalist Progress Note ---
Date of Service November 18, 2022 Assessment & Plan (1) Cardiorenal syndrome: Plan: improving with slow gentle diuresis (2) Acute exacerbation of CHF (congestive heart failure): Plan: Acute on chronic diastolic or HFpEF, heart failure, causing acute respiratory failure with hypoxia Aortic stenosis s/p bioprosthetic AVR: Appropriately functioning bioprosthetic aortic valve on 06/29/22 -Aggressive diuresis Bumex at 2 mg twice daily - weight is down, I's and O balance is remain negative Hypertension/PAF -240 mg diltiazem every morning, 60 mg diltiazem at night -Metoprolol 25 mg extended release daily Anticoagulated with Coumadin, inr is up will hold restart until 11/19 - -complicated by SHARI requiring nightly BiPap Chronic kidney disease stage IV -Consult nephrology for discussion regarding renal replacement therapy versus palliation, patient and family do not want to go to renal replacement therapy we will attempt to diurese to improve her symptoms at this time Aguilera placed iron low we will corroborate with nephrology regarding iron replacement therapy : Hyperlipidemia -Continue pravastatin 80 mg daily -Heart healthy diet with fluid restriction of 1500 mL Heme: Systemic anticoagulation with Coumadin for atrial fibrillation -Therapeutic INR despite reported not receiving additional doses DVT prophylaxis: Systemic anticoagulation with Coumadin: Therapeutic INR Diabetes: Insulin-dependent -Continue Novolin NPH U100 18 units at bedtime, with sliding scale Hypothyroidism -Levothyroxine 175 mcg daily Code Status: DNR in event of cardiac arrest Palliative care consult for goals of care/transition to palliation. Discussion with patient and , the admission doctor was left with the impression aggressive measures of renal replacement therapy would not be consistent with long-term goals. admitting provider believed the patient is rapidly approaching an end-stage terminal condition without meaningful chance of recovery. (3) Chronic kidney disease, stage 4 (severe): Admission and Anticipated Discharge Date Admission Date: November 15, 2022 Subjective Mrs. Bernabe was evaluated in her hospital room this morning. She was oriented to self, place and month. we discussed her plan of care and she was able to teach back to me. We will continue to diurese her slowly and gently involving physical occupational t herapy today Physical Exam Physical Exam: patient is awake and alert card exam is distant but regular lungs are diminished at the base extremities are with 2+ edema , there is no additional seeping of her legs at this time Results & Data Results & Data Vital Signs (Past 12 Hours) Vital Signs Temp Pulse Pulse Resp BP Pulse Ox O2 Del Method 11/18/22 06:51 62 11/18/22 03:23 97.7 F 66 18 118/63 94 Nasal Cannula 11/17/22 23:39 98.1 F 67 18 123/60 90 Nasal Cannula 11/17/22 23:38 74 11/17/22 21:37 Nasal Cannula 11/17/22 19:24 97.7 F 67 18 126/71 92 Nasal Cannula O2 Flow Rate 11/18/22 06:51 11/18/22 03:23 2 11/17/22 23:39 2 11/17/22 23:38 11/17/22 21:37 2 11/17/22 19:24 2 Laboratory Results reviewed CBC reviewed chemistry reviewed coagulation studies iron reviewed slightly low PG Care Time/CCT Total # of Minutes Spent Total Time Spent with Patient: Total time spent is greater than 50% in coordination of care (as documented) at patient's floor/unit and/or counseling patient: Coding Level of Care Code 68446 SUB INP/OBS CARE 2/35MIN Diagnoses Cardiorenal syndrome I13.10 Acute exacerbation of CHF (congestive heart failure) I50.9 Chronic kidney disease, stage 4 (severe) N18.4
[2022-11-18 07:41] LABS: INR 3.6 (0.9-1.1); Prothrombin Time 36.8 Seconds (9.0-12.0)
[2022-11-18 08:02] LABS: BUN Creatinine Ratio 18.5 (10-20); Calcium 8.7 mg/dl (8.6-10.3); Creatinine Clr Calc Pharmacy 19.7 ml/min; Est GFR (African American) 14.5 ml/min; Est GFR (Non-African American) 12.5 ml/min; Magnesium 2.4 mg/dl (1.7-2.4); Phosphorus 5.5 mg/dl (2.5-4.9); Potassium 3.7 mmol/L (3.5-5.1)
--- NOTE | 2022-11-18 08:13 | XRay Report ---
SINGLE VIEW CHEST CLINICAL HISTORY: Congestive heart failure. FINDINGS: 2 AP, portable, upright chest radiographs are compared to study 11/15/2022 and correlated wi th chest CT dated 08/23/2022. The examination is mildly degraded by portable technique and patient rota tion. The patient is status post midline sternotomy and cardiac valve surgery. The heart is enlarged noting atherosclerotic calcification of the thoracic aorta. There is evidence of congestive failure. Multifocal bilateral airspace opacities likely representing pulmonary edema. No large pleural effusio n or pneumothorax is seen. The skeletal structures are osteopenic. The bony thorax is grossly intact. IMPRESSION: 1. Cardiomegaly with evidence of congestive failure. 2. Bilateral airspace opacities likely represent pulmonary edema. This is similar to previous. Radiog raphic follow-up to resolution is recommended. ACT 112: Negative or not required by law. Electronically signed by: Cortez David M.D. 11/18/2022 8:12 AM
--- NOTE | 2022-11-18 08:34 | Nephrology Progress Note ---
Date of Service November 18, 2022 Assessment & Plan (1) AMS (altered mental status): Plan: * Resolved * 11/15/[address] negative for mass/bleed. Urine culture negative. No culprit medications identified (2) Acute kidney injury superimposed on chronic kidney disease: Plan: * Admitted w/ decompensated CHF and ERIN/CKD * Suspect mitral valve regurgitation w/ pulmonary HTN contributing * Urine sediment is negative for ATN casts * Renal function has improved w/ diuresis (Cr 4.3-->3.4, baseline 1.4), LE swelling is markedly improved * No acute indication for HD at this time (3) Acute exacerbation of congestive heart failure: Plan: * Patient has diuresed 5.2L since admission * Continue Bumex 2 mg IV BID. If continued improvement tomorrow, will consider conversion to oral therapy * Continue low sodium diet and maintain fluid restriction of <1.5 L/d. (4) Chronic kidney disease with active medical management without dialysis, stage 3 (moderate): Plan: * Baseline Cr 1.4 mg/dL. 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 Admission and Anticipated Discharge Date Admission Date: November 15, 2022 Subjective Mrs. Bernabe was evaluated in her hospital room this morning. She was oriented to self, place and month. She reports brisk UO in response to IV diuretic therapy. Mrs. Bernabe voices no new medical concerns Review of Systems Constitutional: no fever Eyes: no problem reported Ear, Nose, Mouth, Throat: no problem reported Respiratory: + dyspnea Cardiovascular: no chest pain Gastrointestinal: no nausea, no vomiting and no diarrhea/loose stools Genitourinary: no dysuria Integumentary: no rash Physical Exam Constitutional: not in distress Eyes: PERRL, conjunctivae normal, anicteric sclerae ENMT: external ear and nose normal, oropharynx normal Neck: trachea midline, no thyromegaly Respiratory: no respiratory distress Auscultation: + rales (at bases bilaterally) Cardiovascular: Rate/Rhythm: regular rate and regular rhythm (1+ pretibial pitting edema) Gastrointestinal (Abdomen): normal bowel sounds, soft, nontender, no hepatosplenomegaly Skin: no rashes, warm and dry Results & Data Vital Signs (Past 12 Hours) Vital Signs Temp Pulse Pulse Resp BP Pulse Ox O2 Del Method 11/18/22 06:51 62 11/18/22 03:23 36.5 C 66 18 118/63 94 Nasal Cannula 11/17/22 23:39 36.7 C 67 18 123/60 90 Nasal Cannula 11/17/22 23:38 74 11/17/22 21:37 Nasal Cannula O2 Flow Rate 11/18/22 06:51 11/18/22 03:23 2 11/17/22 23:39 2 11/17/22 23:38 11/17/22 21:37 2 Laboratory Results Laboratory Tests 11/15/22 11/18/22 11/18/22 05:14 06:27 06:27 WBC 6.47 Hgb 8.9 L Hct 30.0 L Plt Count 168 Sodium 145 Potassium 3.7 Chloride 109 H Carbon Dioxide 30 BUN 63 H Creatinine 3.91 H 3.40 H D Glucose 79 PG Care Time/CCT Total # of Minutes Spent Total Time Spent with Patient: Total time spent is greater than 50% in coordination of care (as documented) at patient's floor/unit and/or counseling patient: Coding Level of Care Code 82734 SUB INP/OBS CARE 3/50MIN Diagnoses AMS (altered mental status) R41.82 Acute kidney injury superimposed on chronic kidney disease N17.9; N18.9 Acute exacerbation of congestive heart failure I50.9 Chronic kidney disease with active medical management without dialysis, stage 3 (moderate) N18.30
[2022-11-18] MEDS: BENZONATATE 100 MG CAPSULE PO SCH ×3 (09:13→20:26)
[2022-11-18] MEDS: BUMETANIDE 2 MG in SYRINGE 0 ML IV SCH ×2 (09:13→17:44)
[2022-11-18] MEDS: TIMOLOL MALEATE 0.5% OP SOLN 5 ML BTL OPR SCH (09:13)
[2022-11-18] MEDS: INSULIN ASPART PER UNIT CHARGE SC SCH ×4 (09:13→20:25)
[2022-11-18] MEDS: dilTIAZem HCL 240 MG CAPCR PO SCH (09:14)
[2022-11-18] MEDS: LANTUS PER UNIT CHARGE SC SCH ×2 (09:15→20:25)
[2022-11-18 12:07] LABS: Ferritin 88.3 ng/ml (8-388)
[2022-11-18] MEDS: ACETAMINOPHEN 500 MG TAB PO PRN (15:50)
[2022-11-18] MEDS ORDERED: WARFARIN SOD 2 MG TAB PO SCH (16:00)
[2022-11-18] MEDS ORDERED: MoRPHine SULFATE 2 MG/ML CARP IV PRN (17:34)
[2022-11-18] MEDS: METOPROLOL SUCC 25MG EXT REL TAB PO SCH (20:26)
[2022-11-18] MEDS: PRAVASTATIN SOD 40 MG TAB PO SCH (20:26)
[2022-11-18] MEDS: oxyCODONE HCL IR 5 MG TAB (IMMEDIATE RELEASE) PO PRN (22:56)
[2022-11-19] MEDS: LEVOTHYROXINE SODIUM 175 MCG TABLET PO SCH (05:24)
[2022-11-19 06:42] LABS: Basophils # (auto) 0.08 K/uL (0.00-0.20); Basophils % (auto) 1.2 %; Eosinophils # (auto) 0.34 K/uL (0.00-0.50); Eosinophils % (auto) 4.9 %; Hematocrit (blood only) 31.1 % (37.0-47.0); Hemoglobin 9.2 g/dl (12.0-16.0); Immature Granulocytes # (auto) 0.03 K/uL (0.01-0.20); Immature Granulocytes % (auto) 0.4 %; Lymphocytes # (auto) 1.13 K/uL (1.20-3.40); Lymphocytes % (auto) 16.3 %; Mean Corpuscular Hemoglobin 27.4 pg (25.0-34.0); Mean Corpuscular Hgb Conc 29.6 g/dL (32.0-36.0); Mean Corpuscular Volume 92.6 fL (80.0-100.0); Mean Platelet Volume 9.7 fL (9.4-12.4); Monocytes # (auto) 0.86 K/uL (0.11-0.59); Monocytes % (auto) 12.4 %; Neutrophils # (auto) 4.48 K/uL (1.40-6.50); Neutrophils % (auto) 64.8 %; Platelet Count 183 K/uL (130-400); RDW Coefficient of Variation 17.3 % (11.5-14.5); RDW Standard Deviation 56.3 fL (36.4-46.3); Red Blood Count 3.36 M/uL (4.20-5.40); White Blood Count 6.92 K/ul (4.8-10.8)
[2022-11-19 07:13] LABS: Calcium 8.6 mg/dl (8.6-10.3); Creatinine Clr Calc Pharmacy 20.2 ml/min; Est GFR (African American) 15.2 ml/min; Est GFR (Non-African American) 13.1 ml/min; Magnesium 2.4 mg/dl (1.7-2.4); Phosphorus 5.5 mg/dl (2.5-4.9); Potassium 3.6 mmol/L (3.5-5.1)
[2022-11-19] MEDS: dilTIAZem HCL 240 MG CAPCR PO SCH (07:42)
[2022-11-19] MEDS: BENZONATATE 100 MG CAPSULE PO SCH ×3 (07:42→20:11)
[2022-11-19] MEDS: BUMETANIDE 2 MG in SYRINGE 0 ML IV SCH ×2 (07:44→16:54)
[2022-11-19] MEDS: TIMOLOL MALEATE 0.5% OP SOLN 5 ML BTL OPR SCH (07:44)
[2022-11-19] MEDS: oxyCODONE HCL IR 5 MG TAB (IMMEDIATE RELEASE) PO PRN (07:47)
[2022-11-19 07:54] LABS: INR 4.3 (0.9-1.1); Prothrombin Time 43.4 Seconds (9.0-12.0)
[2022-11-19] MEDS: INSULIN ASPART PER UNIT CHARGE SC SCH ×4 (09:07→20:37)
--- NOTE | 2022-11-19 09:07 | Nephrology Progress Note ---
Date of Service November 19, 2022 Assessment & Plan (1) AMS (altered mental status): Plan: * Resolved * 11/15/[address] negative for mass/bleed. Urine culture negative. No culprit medications identified (2) Acute kidney injury superimposed on chronic kidney disease: Plan: * Admitted w/ decompensated CHF and ERIN/CKD * Suspect mitral valve regurgitation w/ pulmonary HTN contributing * Urine sediment is negative for ATN casts * Renal function has improved w/ diuresis (Cr 4.3-->3.3, baseline 1.4), LE swelling is markedly improved * No acute indication for HD at this time (3) Acute exacerbation of congestive heart failure: Plan: * Patient has diuresed 6.4 L since admission * Continue Bumex 2 mg IV BID * Continue low sodium diet and maintain fluid restriction of <1.5 L/d. (4) Chronic kidney disease with active medical management without dialysis, stage 3 (moderate): Plan: * Baseline Cr 1.4 mg/dL. 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 Admission and Anticipated Discharge Date Admission Date: November 15, 2022 Subjective Mrs. Bernabe was evaluated in her hospital room this morning. She was oriented to self, place and month. She reports brisk UO in response to IV diuretic therapy. Mrs. Bernabe reports mild R hip discomfort from being in bed. She hope to get up to a chair today Review of Systems Constitutional: no fever Eyes: no problem reported Ear, Nose, Mouth, Throat: no problem reported Respiratory: + dyspnea Cardiovascular: no chest pain Gastrointestinal: no nausea, no vomiting and no diarrhea/loose stools Genitourinary: no dysuria Integumentary: no rash Physical Exam Constitutional: not in distress Eyes: PERRL, conjunctivae normal, anicteric sclerae ENMT: external ear and nose normal, oropharynx normal Neck: trachea midline, no thyromegaly Respiratory: no respiratory distress Auscultation: + rales (at bases bilaterally) Cardiovascular: Rate/Rhythm: regular rate and regular rhythm (1+ pretibial pitting edema) Gastrointestinal (Abdomen): normal bowel sounds, soft, nontender, no hepatosplenomegaly Skin: no rashes, warm and dry Results & Data Vital Signs (Past 12 Hours) Vital Signs Temp Pulse Pulse Resp BP BP Pulse Ox 11/19/22 08:35 36.4 C L 64 18 130/66 97 09/04/23 07:05 68 11/19/22 02:59 36.6 C 68 18 115/63 94 11/18/22 23:32 62 11/18/22 22:58 36.4 C L 75 18 129/72 97 11/18/22 21:12 O2 Del Method O2 Flow Rate 11/19/22 08:35 Nasal Cannula 2 11/19/22 07:05 11/19/22 02:59 Nasal Cannula 2 11/18/22 23:32 11/18/22 22:58 Nasal Cannula 2 11/18/22 21:12 Nasal Cannula 2 Laboratory Results Laboratory Tests 11/06/22 11/19/22 11/19/22 04:19 05:50 05:50 WBC 6.92 Hgb 9.2 L Hct 31.1 L Plt Count 183 Sodium 144 Potassium 3.6 Chloride 108 H Carbon Dioxide 30 BUN 59 H Creatinine 4.32 H 3.27 H Est GFR (Non-Af Amer) 13.1 PG Care Time/CCT Total # of Minutes Spent Total Time Spent with Patient: Total time spent is greater than 50% in coordination of care (as documented) at patient's floor/unit and/or counseling patient: Coding Level of Care Code 53730 SUB INP/OBS CARE 3/50MIN Diagnoses AMS (altered mental status) R41.82 Acute kidney injury superimposed on chronic kidney disease N17.9; N18.9 Acute exacerbation of congestive heart failure I50.9 Chronic kidney disease with active medical management without dialysis, stage 3 (moderate) N18.30
[2022-11-19] MEDS: LANTUS PER UNIT CHARGE SC SCH ×2 (09:35→20:37)
--- NOTE | 2022-11-19 14:42 | Electrocardiogram Report ---
Test Reason : Blood Pressure : / mmHG Vent. Rate : 058 BPM Atrial Rate : 000 BPM P-R Int : 000 ms QRS Dur : 172 ms QT Int : 498 ms P-R-T Axes : 000 -84 101 degrees QTc Int : 488 ms Atrial fibrillation with slow ventricular response Left axis deviation Left bundle branch block Abnormal ECG When compared with ECG of 21-OCT-2022 10:05, Vent. rate has decreased BY 53 BPM QRS voltage has decreased Confirmed by Joel Miller ([id number]) on 11/19/2022 2:41:56 PM Referred By: [facility] Confirmed By:Joel Miller
--- NOTE | 2022-11-19 15:34 | Hospitalist Progress Note ---
Date of Service November 19, 2022 Assessment & Plan (1) Cardiorenal syndrome: Plan: improving with slow gentle diuresis (2) Acute exacerbation of CHF (congestive heart failure): Plan: Acute on chronic diastolic or HFpEF, heart failure, causing acute respiratory failure with hypoxia Aortic stenosis s/p bioprosthetic AVR: Appropriately functioning bioprosthetic aortic valve on 06/29/22 -Continue with aggressive diuresis Bumex at 2 mg twice daily - weight continues to be down, I's and O balance continues with negative Hypertension/PAF -240 mg diltiazem every morning, 60 mg diltiazem at night -Metoprolol 25 mg extended release daily Anticoagulated with Coumadin, inr is up will hold will not restart unless INR begins to improve - -complicated by SHARI requiring nightly BiPap Chronic kidney disease stage IV -Consult nephrology for discussion regarding renal replacement therapy versus palliation, patient and family do not want to go to renal replacement therapy we will attempt to diurese to improve her symptoms at this time Aguilera placed iron low we will corroborate with nephrology regarding iron replacement therapy : Hyperlipidemia -Continue pravastatin 80 mg daily -Heart healthy diet with fluid restriction of 1500 mL Heme: Systemic anticoagulation with Coumadin for atrial fibrillation -Therapeutic INR despite reported not receiving additional doses DVT prophylaxis: Systemic anticoagulation with Coumadin: Therapeutic INR Diabetes: Insulin-dependent -Continue Novolin NPH U100 18 units at bedtime, with sliding scale Hypothyroidism -Levothyroxine 175 mcg daily Code Status: DNR in event of cardiac arrest Palliative care consult for goals of care/transition to palliation. Discussion with patient and , the admission doctor was left with the impression aggressive measures of renal replacement therapy would not be consistent with long-term goals. admitting provider believed the patient is rapidly approaching an end-stage terminal condition without meaningful chance of recovery. (3) Chronic kidney disease, stage 4 (severe): Admission and Anticipated Discharge Date Admission Date: November 15, 2022 Subjective Patient has no complaints to me although did complain of right hip pain to Dr. Alicea she is doing well with continued persistent diuresis without significant renal discord has had unexplained elevation of her INR despite holding her warfarin over the last few days Physical Exam Physical Exam: patient is awake and alert card exam is distant but regular lungs are diminished at the base extremities are with 2+ edema , legs appear to be improving over time Results & Data Results & Data Vital Signs (Past 12 Hours) Vital Signs Temp Pulse Pulse Resp BP Pulse Ox O2 Del Method 11/19/22 08:00 Nasal Cannula 11/19/22 13:53 97.5 F L 11/19/22 12:42 65 16 117/62 90 Room Air 11/19/22 08:35 97.5 F L 64 18 130/66 97 Nasal Cannula 11/19/22 07:05 68 O2 Flow Rate 11/19/22 08:00 2 11/19/22 13:53 11/19/22 12:42 11/19/22 08:35 2 11/19/22 07:05 Laboratory Results Evaluated CBC chemistry and coagulation studies PG Care Time/CCT Total # of Minutes Spent Total Time Spent with Patient: Total time spent is greater than 50% in coordination of care (as documented) at patient's floor/unit and/or counseling patient: Coding Level of Care Code 54636 SUB INP/OBS CARE 2/35MIN Diagnoses Cardiorenal syndrome I13.10 Acute exacerbation of CHF (congestive heart failure) I50.9 Chronic kidney disease, stage 4 (severe) N18.4
[2022-11-19] MEDS ORDERED: WARFARIN SOD 2 MG TAB PO SCH (16:00)
[2022-11-19] MEDS: METOPROLOL SUCC 25MG EXT REL TAB PO SCH (20:11)
[2022-11-19] MEDS: PRAVASTATIN SOD 40 MG TAB PO SCH (20:11)
[2022-11-19 23:47] LABS: Appearance Urine Slightly Cloudy (Clear); Bilirubin Urine Negative (Negative); Blood Urine 3+ (Negative); Color Urine Brown; Glucose Urine UA Negative (Negative); Ketones Urine Negative (Negative); Leukocyte Esterase Urine 1+ (Negative); Nitrite Urine Positive (Negative); Protein Urine 2+ (Negative); Urobilinogen Urine Negative (Negative); pH Urine 5.5 (4.5-7.5)
[2022-11-19 23:52] LABS: Epithelial Cell Urine 0-5 /lpf (0-5); RBC Urine >30 /hpf (0-4)
[2022-11-19 23:53] LABS: Bacteria Urine 1+ (Negative)
[2022-11-20] MEDS: MICONAZOLE NITRATE POWDER 85 GM EXT PRN (00:25)
[2022-11-20 01:13] LABS: Hematocrit (blood only) 29.9 % (37.0-47.0); Hemoglobin 8.9 g/dl (12.0-16.0)
[2022-11-20] MEDS ORDERED: BUMETANIDE 2 MG in SYRINGE 0 ML IV ONE (04:15)
[2022-11-20] MEDS: LEVOTHYROXINE SODIUM 175 MCG TABLET PO SCH (05:25)
[2022-11-20 06:38] LABS: Hematocrit (blood only) 30.4 % (37.0-47.0); Hemoglobin 8.9 g/dl (12.0-16.0)
[2022-11-20 06:58] LABS: BUN Creatinine Ratio 19.4 (10-20); Calcium 8.7 mg/dl (8.6-10.3); Creatinine Clr Calc Pharmacy 21.3 ml/min; Est GFR (African American) 16.3 ml/min; Magnesium 2.3 mg/dl (1.7-2.4); Potassium 3.5 mmol/L (3.5-5.1)
[2022-11-20 07:24] LABS: Prothrombin Time 54.9 Seconds (9.0-12.0)
[2022-11-20 07:43] LABS: INR 5.6 (0.9-1.1)
[2022-11-20] MEDS: ACETAMINOPHEN 500 MG TAB PO PRN ×3 (07:46→22:56)
[2022-11-20] MEDS: BUMETANIDE 2 MG in SYRINGE 0 ML IV SCH ×2 (07:47→18:30)
[2022-11-20] MEDS: BENZONATATE 100 MG CAPSULE PO SCH ×4 (07:48→21:18)
[2022-11-20] MEDS: dilTIAZem HCL 240 MG CAPCR PO SCH (07:48)
--- NOTE | 2022-11-20 08:19 | XRay Report ---
XR chest 1V portable HISTORY: oxygen desaturations COMPARISON: Chest 11/18/2022. FINDINGS: No pneumothorax. The heart remains enlarged. There are poststernotomy changes. Diffuse inte rstitial thickening bilateral patchy airspace opacities persist. Trace bilateral pleural effusions ar e suspected. A cardiac valve prosthesis is again noted. IMPRESSION: No change in the bilateral airspace opacities and mild congestive change. ACT 112: Negative or not required by law. Electronically signed by: Kevyn Rojas M.D. 11/20/2022 8:17 AM
[2022-11-20] MEDS: LANTUS PER UNIT CHARGE SC SCH ×2 (08:20→20:26)
[2022-11-20] MEDS: INSULIN ASPART PER UNIT CHARGE SC SCH ×4 (08:20→20:33)
--- NOTE | 2022-11-20 08:55 | Nephrology Progress Note ---
Date of Service November 20, 2022 Assessment & Plan (1) AMS (altered mental status): Plan: * Mildly confused this morning. Quickly becomes hypoxemic off high flow O2 * 11/15/[address] negative for mass/bleed. Urine culture negative. No culprit medications identified (2) Acute kidney injury superimposed on chronic kidney disease: Plan: * Admitted w/ decompensated CHF and ERIN/CKD * Suspect mitral valve regurgitation w/ pulmonary HTN contributing * Urine sediment is negative for ATN casts * Renal function has improved w/ diuresis (Cr 4.3-->3.0, baseline 1.4), LE swelling is markedly improved * No acute indication for HD at this time (3) Acute exacerbation of congestive heart failure: Plan: * Patient has diuresed 7.8 L since admission * CXR this am shows persistent CHF * 10/24/22 Echocardiogram: LVEF 55%, moderate MR * Question need for follow up echocardiogram * Continue Bumex 2 mg IV BID * Continue low sodium diet and maintain fluid restriction of <1.5 L/d. (4) Chronic kidney disease with active medical management without dialysis, stage 3 (moderate): Plan: * Baseline Cr 1.4 mg/dL. 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 Admission and Anticipated Discharge Date Admission Date: November 15, 2022 Subjective Mrs. Bernabe was evaluated in her hospital room this morning. She c/o mild dyspnea and now requires high flow oxygen. She quickly desaturates on RA. Mrs. Bernabe denies fever, angina or cough. She is oriented to self and place but not month this morning. Review of Systems Constitutional: no fever Eyes: no problem reported Ear, Nose, Mouth, Throat: no problem reported Respiratory: + dyspnea Cardiovascular: no chest pain Gastrointestinal: no nausea, no vomiting and no diarrhea/loose stools Genitourinary: no dysuria Integumentary: no rash Physical Exam Constitutional: not in distress Eyes: PERRL, conjunctivae normal, anicteric sclerae ENMT: external ear and nose normal, oropharynx normal Neck: trachea midline, no thyromegaly Respiratory: no respiratory distress Auscultation: + rales (at bases bilaterally) Cardiovascular: Rate/Rhythm: regular rate and regular rhythm (trace pretibial edema) Gastrointestinal (Abdomen): normal bowel sounds, soft, nontender, no hepatosplenomegaly Skin: no rashes, warm and dry Results & Data Vital Signs (Past 12 Hours) Vital Signs Temp Pulse Resp BP Pulse Ox O2 Del Method O2 Flow Rate 11/20/22 07:31 36.4 C L 61 18 115/67 98 Room Air 11/20/22 05:26 96 Oxymask 10 11/20/22 04:17 70 20 125/67 93 Nasal Cannula 5 Laboratory Results Laboratory Tests 11/06/22 11/17/22 11/19/22 04:19 05:47 23:25 Hgb Hct Sodium Potassium Chloride Carbon Dioxide BUN Creatinine 4.32 H 3.74 H Glucose Ur Specific [place] 1.020 Urine Protein 2+ H Urine Blood 3+ H Urine Nitrite Positive A Ur Leukocyte Esterase 1+ H Urine RBC >30 H 11/20/22 11/20/22 06:16 06:16 Hgb 8.9 L Hct 30.4 L Sodium 146 H Potassium 3.5 Chloride 108 H Carbon Dioxide 32 BUN 60 H Creatinine 3.10 H Glucose 88 Ur Specific [place] Urine Protein Urine Blood Urine Nitrite Ur Leukocyte Esterase Urine RBC PG Care Time/CCT Total # of Minutes Spent Total Time Spent with Patient: Total time spent is greater than 50% in coordination of care (as documented) at patient's floor/unit and/or counseling patient: Coding Level of Care Code 79373 SUB INP/OBS CARE 3/50MIN Diagnoses AMS (altered mental status) R41.82 Acute kidney injury superimposed on chronic kidney disease N17.9; N18.9 Acute exacerbation of congestive heart failure I50.9 Chronic kidney disease with active medical management without dialysis, stage 3 (moderate) N18.30
[2022-11-20] MEDS ORDERED: PHYTONADIONE 5 MG TAB PO STA (09:09)
[2022-11-20] MEDS: TIMOLOL MALEATE 0.5% OP SOLN 5 ML BTL OPR SCH (09:45)
[2022-11-20] MEDS ORDERED: ACETAMINOPHEN 1,000 MG/100 ML VIAL IV PRN (10:39)
--- NOTE | 2022-11-20 11:02 | XRay Report ---
XR chest 1V portable HISTORY: hypoxia COMPARISON: Chest 11/20/2022. FINDINGS: No pneumothorax. The heart remains enlarged. There are poststernotomy changes and a cardiac valve prosthesis again noted. Pulmonary edema, patchy bilateral airspace opacities, and trace bilate ral pleural effusions persist. This is similar to the prior study. IMPRESSION: No significant change in the pulmonary edema, patchy bilateral airspace opacities, and trace bilatera l pleural effusions. ACT 112: Negative or not required by law. Electronically signed by: Kevyn Rojas M.D. 11/20/2022 11:01 AM
--- NOTE | 2022-11-20 11:53 | Palliative Care Progress Note ---
Date of Service November 20, 2022 Assessment & Plan (1) Pain: Plan: Low back and right hip, likely from prolonged immobility Position change as needed She has oral tylenol available prn Per her , she does not tolerate opioids well, with increased confusion Add IV tylenol for moderate to severe pain to avoid opioid if possible Given renal failure, would avoid morphine (2) Acute dyspnea: Plan: Hypoxia despite diuresis and some improvement in CXR On anticoagulation with supratherapeutic INR She denies air hunger (3) Palliative care encounter: Plan: Jayshree is more talkative today than previous visit, though quite confused. She tells me she is ok but is "just existing". We talked about concern that her medical problems may not be fixable at this time but that we can fix her comfort level and focus on that. She nodded in agreement. I met with her at bedside and outside the room. He sees that although some days are better than others, her overall trajectory is down. He tells me that he is taking this on a day to day basis. He also talked about being afraid of the future without Jayshree. We discussed concern that her hypoxia despite optimal treatment may be an ominous sign. He wants to watch for another day. If she does not have some improvement by tomorrow, he is considering comfort focused care. His daughter has arrived from [place] for support. Discussed with RN and Dr. Lawler Admission and Anticipated Discharge Date Admission Date: November 15, 2022 Subjective On high flow O2 this morning with hypoxia. She denies feeling short of breath. She does complain of pain in her right hip and low back. She is also talking about being in [place] today. Review of Systems Review of Systems: ESAS Pain 2/3 Dyspnea 0/3 Nausea 0/3 Drowsiness 0/3 Physical Exam Constitutional: no acute distress facial grimace with movement Respiratory: normal respiratory effort; no labored breathing Cardiovascular: Rate/Rhythm: regular rate and regular rhythm Neurologic: Speech / Cognition: + abnormal cognition Genitourinary: Aguilera catheter with hematuria Results & Data Vital Signs (Past 12 Hours) Vital Signs Temp Pulse Resp BP Pulse Ox O2 Del Method O2 Flow Rate 11/20/22 10:31 Oxymask 10 11/20/22 07:31 97.5 F L 61 18 115/67 98 Room Air 11/20/22 05:26 96 Oxymask 10 11/20/22 04:17 70 20 125/67 93 Nasal Cannula 5 PG Care Time/CCT Total # of Minutes Spent Total Time Spent: 55 Total Time Spent with Patient: Total time spent is greater than 50% in coordination of care (as documented) at patient's floor/unit and/or counseling patient: symptom management, goals of care, family education and support, coordination of care Coding Level of Care Code 16562 SUB INP/OBS CARE 3/50MIN Diagnoses Pain R52 Acute dyspnea R06.00 Palliative care encounter Z51.5
[2022-11-20] MEDS ORDERED: cefTRIAXone SODIUM 2,000 MG in DEXTROSE 5% 50 ML IV STA (16:16)
--- NOTE | 2022-11-20 16:16 | Hospitalist Progress Note ---
Date of Service November 20, 2022 Assessment & Plan (1) Cardiorenal syndrome: Plan: Negative fluid balance and improving renal function after gentle diuresis (2) Acute exacerbation of CHF (congestive heart failure): Plan: Acute on chronic diastolic or HFpEF, heart failure, causing acute respiratory failure with hypoxia Aortic stenosis s/p bioprosthetic AVR: Appropriately functioning bioprosthe tic aortic valve on 06/29/22 -Continue with aggressive diuresis Bumex at 2 mg twice daily - weight continues to be down, I's and O balance continues with negative despite this fact patient has had increased oxygen demand requirement. It would seem unusual that she have a pulmonary embolism as she is supratherapeutic with her INR and chest x-ray performed 9 5 interprets as improved over her previous chest x-rays Consideration if it could be from atelectasis as she is in bed and she does have a BMI of 45 less likely to be from alveolar hemorrhage as chest x-ray did improve Markedly abnormal urine in Aguilera bag urine cultures pending questionable hypoxia from infectious etiology, will be given 1 dose of ceftriaxone awaiting urine culture Hypertension/PAF -240 mg diltiazem every morning, 60 mg diltiazem at night -Metoprolol 25 mg extended release daily Anticoagulated with Coumadin, inr is up given vitamin K orally on 11/20/2022 - -complicated by SHARI requiring nightly BiPap if hypoxia becomes an issue may use BiPAP during the day Chronic kidney disease stage IV -Consult nephrology for discussion regarding renal replacement therapy versus palliation, patient and family do not want to go to renal replacement therapy we will attempt to diurese to improve her symptoms at this time Aguilera placed iron low we will corroborate with nephrology regarding iron replacement therapy : Hyperlipidemia -Continue pravastatin 80 mg daily -Heart healthy diet with fluid restriction of 1500 mL Heme: Systemic anticoagulation with Coumadin for atrial fibrillation -Supra therapeutic INR despite reported not receiving additional doses DVT prophylaxis: Systemic anticoagulation with Coumadin: Supra therapeutic INR Diabetes: Insulin-dependent -Continue Novolin NPH U100 18 units at bedtime, with sliding scale Hypothyroidism -Levothyroxine 175 mcg daily Code Status: DNR in event of cardiac arrest Palliative care consult for goals of care/transition to palliation. Discussion with patient and , the admission doctor was left with the impression aggressive measures of renal replacement therapy would not be consistent with long-term goals. Patient's condition has waxed and waned her hospital stay had been good throughout the weekend but worsening on Saturday 9 5 still sitting however course will go before making final decisions on palliative care transition (3) Chronic kidney disease, stage 4 (severe): Admission and Anticipated Discharge Date Admission Date: November 15, 2022 Subjective Patient is some significant hypoxia requiring excessive doses of oxygen. She was on high flow for period of time. Patient continues to have diuresis daily with I's and O suggesting overall negative balance of over 8 L body weight is gone down from 295 pounds to 278 despite this fact she continues feels significantly short of breath and weakened. She had a persistently elevated INR that receiving some vitamin K on 11/20/2022 Appreciate palliative care input was at the bedside during discussions Physical Exam Physical Exam: Awake and confused at times diminished breath sounds at the bases extremities are still with edema but without evidence of leaking fluid. Results & Data Results & Data Vital Signs (Past 12 Hours) Vital Signs Temp Pulse Resp BP Pulse Ox O2 Del Method O2 Flow Rate 11/20/22 15:27 97.9 F 67 18 122/62 97 Nasal Cannula 7 11/20/22 10:31 Oxymask 10 11/20/22 07:31 97.5 F L 61 18 115/67 98 Oxymask 10 11/20/22 05:26 96 Oxymask 10 11/20/22 04:17 70 20 125/67 93 Nasal Cannula 5 PG Care Time/CCT Total # of Minutes Spent Total Time Spent with Patient: Total time spent is greater than 50% in coordination of care (as documented) at patient's floor/unit and/or counseling patient: Coding Level of Care Code 53502 SUB INP/OBS CARE 3/50MIN Diagnoses Cardiorenal syndrome I13.10 Acute exacerbation of CHF (congestive heart failure) I50.9 Chronic kidney disease, stage 4 (severe) N18.4
[2022-11-20] MEDS: METOPROLOL SUCC 25MG EXT REL TAB PO SCH ×2 (20:09→21:19)
[2022-11-20] MEDS: PRAVASTATIN SOD 40 MG TAB PO SCH ×2 (20:10→21:19)
[2022-11-20] MEDS ORDERED: HALOPERIDOL LACTATE 5 MG/ML 1 ML VIAL IM STA ×2 (20:16→20:38)
[2022-11-20] MEDS: oxyCODONE HCL IR 5 MG TAB (IMMEDIATE RELEASE) PO PRN (23:34)
[2022-11-20] MEDS ORDERED: ALBUTEROL 0.083% NEBU SOLN 3 ML VIAL NEB STA (23:58)
[2022-11-21] MEDS ORDERED: FUROSEMIDE 40 MG/4 ML VIAL IV ONE (00:56)
[2022-11-21] MEDS ORDERED: BUMETANIDE 1 MG TAB PO ONE (01:45)
[2022-11-21] MEDS: LEVOTHYROXINE SODIUM 175 MCG TABLET PO SCH (05:43)
[2022-11-21] MEDS: oxyCODONE HCL IR 5 MG TAB (IMMEDIATE RELEASE) PO PRN ×2 (07:19→14:04)
--- NOTE | 2022-11-21 07:29 | XRay Report ---
XR chest 1V portable HISTORY: 77 years-old Female labored breathing acute shortness of breath COMPARISON: 11/20/2022 TECHNIQUE: AP view of the chest FINDINGS: Cardiac silhouette is enlarged. Median sternotomy with cardiac valvular prosthesis and atrial exclusi on device. Pulmonary vascular congestion with mixed interstitial and alveolar opacities, slightly imp roved. Trace right and small left pleural effusions. Mild left basilar consolidation. No pneumothorax . Degenerative changes of the shoulders and spine. IMPRESSION: 1. Cardiomegaly with slightly improved pulmonary edema. 2. Unchanged pleural effusions with left basilar predominant opacities. ACT 112: Negative or not required by law. The above report was generated using voice recognition software. It may contain grammatical, syntax o r spelling errors. Electronically signed by: Tony Bradford M.D. 11/21/2022 7:28 AM
[2022-11-21] MEDS: LANTUS PER UNIT CHARGE SC SCH (08:43)
[2022-11-21] MEDS: INSULIN ASPART PER UNIT CHARGE SC SCH ×4 (08:44→21:36)
[2022-11-21] MEDS: BUMETANIDE 1 MG TAB PO SCH ×2 (08:48→17:25)
[2022-11-21] MEDS: dilTIAZem HCL 240 MG CAPCR PO SCH (08:49)
[2022-11-21] MEDS: TIMOLOL MALEATE 0.5% OP SOLN 5 ML BTL OPR SCH (08:50)
--- NOTE | 2022-11-21 09:18 | Nephrology Progress Note ---
Date of Service November 21, 2022 Assessment & Plan (1) AMS (altered mental status): Plan: * Confused this morning. Pulled out IV last evening. Quickly becomes hypoxemic off high flow O2 * 11/15/[address] negative for mass/bleed. Urine culture negative. No culprit medications identified (2) Acute kidney injury superimposed on chronic kidney disease: Plan: * Admitted w/ decompensated CHF and ERIN/CKD * Suspect mitral valve regurgitation w/ pulmonary HTN contributing * Urine sediment is negative for ATN casts * Renal function has improved w/ diuresis (Cr 4.3-->3.0, baseline 1.4), LE swelling is markedly improved * Awaiting AM labs today (3) Acute exacerbation of congestive heart failure: Plan: * Patient has diuresed 9.4 L since admission * 10/24/22 Echocardiogram: LVEF 55%, moderate MR * Continue Bumex 2 mg IV BID * Continue low sodium diet and maintain fluid restriction of <1.5 L/d * Clinical condition unfortunately appears to be deteriorating. Question whether Mrs. Bernabe has intermittently worsening mitral regurgitation. Consider follow up echocardiogram. Unfortunately, she is a poor surgical candidate. Consider transition to comfort measures. Await further input from Palliative Care (4) Chronic kidney disease with active medical management without dialysis, stage 3 (moderate): Plan: * Baseline Cr 1.4 mg/dL. 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 Admission and Anticipated Discharge Date Admission Date: November 15, 2022 Subjective Mrs. Bernabe was evaluated in her hospital room this morning. She was confused and nursing staff development coordinator reports that she pulled out her heplock last evening. Mrs. Bernabe remains on high flow oxygen and appears to have labored respirations. SaO2 remains 93% Review of Systems Review of Systems: Unobtainable due to cognitive status Physical Exam Constitutional: + ill appearing and + lethargic Eyes: PERRL, conjunctivae normal, anicteric sclerae ENMT: external ear and nose normal, oropharynx normal Neck: trachea midline, no thyromegaly Respiratory: + labored breathing Auscultation: + rales (at bases bilaterally) Cardiovascular: Rate/Rhythm: regular rate and regular rhythm (trace pretibial edema) Gastrointestinal (Abdomen): normal bowel sounds, soft, nontender, no hepatosplenomegaly Skin: no rashes, warm and dry Results & Data Vital Signs (Past 12 Hours) Vital Signs Temp Pulse Resp BP Pulse Ox O2 Del Method O2 Flow Rate 11/21/22 08:06 Nasal Cannula, High Flow Nasal Cannula 7 11/21/22 07:49 36.5 C 68 24 124/70 96 High Flow Nasal Cannula 7 11/21/22 00:46 76 24 98 Nasal Cannula 7 11/20/22 23:16 High Flow Nasal Cannula 7 Laboratory Results 04:44 am labs - not yet drawn PG Care Time/CCT Total # of Minutes Spent Total Time Spent with Patient: Total time spent is greater than 50% in coordination of care (as documented) at patient's floor/unit and/or counseling patient: Coding Level of Care Code 99009 SUB INP/OBS CARE 3/50MIN Diagnoses AMS (altered mental status) R41.82 Acute kidney injury superimposed on chronic kidney disease N17.9; N18.9 Acute exacerbation of congestive heart failure I50.9 Chronic kidney disease with active medical management without dialysis, stage 3 (moderate) N18.30
[2022-11-21] MEDS: BENZONATATE 100 MG CAPSULE PO SCH ×3 (10:31→20:07)
[2022-11-21 13:46] LABS: Hematocrit (blood only) 29.6 % (37.0-47.0); Hemoglobin 8.9 g/dl (12.0-16.0); Mean Corpuscular Hemoglobin 27.2 pg (25.0-34.0); Mean Corpuscular Hgb Conc 30.1 g/dL (32.0-36.0); Mean Corpuscular Volume 90.5 fL (80.0-100.0); Mean Platelet Volume 9.9 fL (9.4-12.4); Platelet Count 152 K/uL (130-400); RDW Coefficient of Variation 17.7 % (11.5-14.5); RDW Standard Deviation 57.4 fL (36.4-46.3); Red Blood Count 3.27 M/uL (4.20-5.40); White Blood Count 7.62 K/ul (4.8-10.8)
[2022-11-21 13:58] LABS: Calcium 8.8 mg/dl (8.6-10.3); Potassium 3.6 mmol/L (3.5-5.1)
[2022-11-21 14:04] LABS: BUN Creatinine Ratio 19.3 (10-20); Creatinine Clr Calc Pharmacy 21.3 ml/min; Est GFR (African American) 16.2 ml/min
[2022-11-21 14:08] LABS: INR 3.8 (0.9-1.1); Prothrombin Time 38.6 Seconds (9.0-12.0)
--- NOTE | 2022-11-21 15:37 | Hospitalist Progress Note ---
Date of Service November 21, 2022 Assessment & Plan (1) Comfort measures only status: Plan: Patient transition to comfort care only status on the morning of 11/22/2022 with expectation the patient's will eventually in the hospital (2) Cardiorenal syndrome: Plan: (3) Acute exacerbation of CHF (congestive heart failure): Plan: Acute on chronic diastolic or HFpEF, heart failure, causing acute respiratory failure with hypoxia Aortic stenosis s/p bioprosthetic AVR: Appropriately functioning bioprosthetic aortic valve on 06/29/22 - Hypertension/PAF - previously on 240 mg diltiazem every morning, 60 mg diltiazem at night-Metoprolol 25 mg extended release daily Anticoagulated with Coumadin, inr is up given vitamin K orally on 11/20/2022 INR on 11 21 is 3.8 - -complicated by SHARI requiring nightly BiPap Chronic kidney disease stage IV -Consult nephrology for discussion regarding renal replacement therapy versus palliation, patient and family do not want to go to renal replacement therapy : Hyperlipidemia Heme: Systemic anticoagulation with Coumadin for atrial fibrillation -Supra therapeutic INR despite reported not receiving additional doses Diabetes: Insulin-dependent -Continue Novolin NPH U100 18 units at bedtime, with sliding scale Hypothyroidism -Levothyroxine 175 mcg daily (4) Chronic kidney disease, stage 4 (severe): Admission and Anticipated Discharge Date Admission Date: November 15, 2022 Subjective Patient had decreased responsiveness still in respiratory distress family is at bedside. Conversations palliative care of transition to comfort care measures in the morning of 11/22/2022 Physical Exam Physical Exam: Barely able to wake up can motor few words falls back asleep easily she is tachypneic in respiratory distress Results & Data Results & Data Vital Signs (Past 12 Hours) Vital Signs Temp Pulse Resp BP BP Pulse Ox O2 Del Method 11/21/22 12:13 98.6 F 67 21 107/69 98 High Flow Nasal Cannula 11/21/22 08:06 Nasal Cannula, High Flow Nasal Cannula 11/21/22 07:49 97.7 F 68 24 124/70 96 High Flow Nasal Cannula O2 Flow Rate 11/21/22 12:13 7 11/21/22 08:06 7 11/21/22 07:49 7 Laboratory Results Reviewed CBC reviewed chemistry PG Care Time/CCT Total # of Minutes Spent Total Time Spent with Patient: Total time spent is greater than 50% in coordination of care (as documented) at patient's floor/unit and/or counseling patient: Coding Level of Care Code 63828 SUB INP/OBS CARE 350MIN Diagnoses Comfort measures only status Z51.5 Cardiorenal syndrome I13.10 Acute exacerbation of CHF (congestive heart failure) I50.9 Chronic kidney disease, stage 4 (severe) N18.4
[2022-11-21] MEDS: ACETAMINOPHEN 500 MG TAB PO PRN (18:20)
[2022-11-21] MEDS ORDERED: MoRPHine SULFATE 2 MG/ML CARP IV STA (19:40)
[2022-11-21] MEDS ORDERED: ONDANSETRON INJ 2 MG/ML 2 ML VIAL IV PRN (19:40)
[2022-11-21] MEDS: METOPROLOL SUCC 25MG EXT REL TAB PO SCH (20:05)
[2022-11-21] MEDS ORDERED: MoRPHine SULFATE IR 15 MG TAB (IMMEDIATE RELEASE) PO ONE (20:08)
[2022-11-21] MEDS ORDERED: ONDANSETRON 4 MG OD TAB PO PRN (20:59)
[2022-11-22] MEDS: LEVOTHYROXINE SODIUM 175 MCG TABLET PO SCH ×2 (05:46→06:33)
--- NOTE | 2022-11-22 08:37 | Nephrology Progress Note ---
Date of Service November 22, 2022 Assessment & Plan (1) AMS (altered mental status): Plan: * Obtunded this am * 11/15/[address] negative for mass/bleed. Urine culture negative. No culprit medications identified (2) Acute kidney injury superimposed on chronic kidney disease: Plan: * Admitted w/ decompensated CHF and ERIN/CKD * Suspect mitral valve regurgitation w/ pulmonary HTN contributing * Urine sediment is negative for ATN casts * Renal function has improved w/ diuresis (Cr 4.3-->3.0, baseline 1.4), LE swelling is markedly improved (3) Acute exacerbation of congestive heart failure: Plan: * Patient has diuresed 9.8 L since admission * 10/24/22 Echocardiogram: LVEF 55%, moderate MR * Continue Bumex 2 mg IV BID * Continue low sodium diet and maintain fluid restriction of <1.5 L/d * Clinical condition appears much worse this am. Suspect that Mrs. Bernabe has intermittently worsening mitral regurgitation. POC discussed w/ patient's brother Pastor. Dr. Parrish from Palliative Care was present during out discussion. Pastor indicated that the family would like to focus on keeping Maria A comfortable and not escalate care. Dr. Parrish indicated that she will meet w/ Maria A's to discuss care with him as well. No further Nephrology intervention indicated at this time. Will sign off. (4) Chronic kidney disease with active medical management without dialysis, stage 3 (moderate): Plan: * Baseline Cr 1.4 mg/dL. 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 Admission and Anticipated Discharge Date Admission Date: November 15, 2022 Subjective Mrs. Bernabe was evaluated in her hospital room this morning. She was awake but nonverbal. Respirations were labored. Her brother Pastor was at bedside. Review of Systems Review of Systems: Unobtainable due to cognitive status Physical Exam Constitutional: + ill appearing, + in distress and + lethargic Eyes: PERRL, conjunctivae normal, anicteric sclerae ENMT: external ear and nose normal, oropharynx normal Neck: trachea midline, no thyromegaly Respiratory: + labored breathing; no respiratory distress Auscultation: + rales (at bases bilaterally) Cardiovascular: Rate/Rhythm: regular rate and regular rhythm (trace pretibial edema) Gastrointestinal (Abdomen): normal bowel sounds, soft, nontender, no hepatosplenomegaly Skin: no rashes, warm and dry Results & Data Vital Signs (Past 12 Hours) Vital Signs Temp Pulse Resp BP Pulse Ox O2 Del Method O2 Flow Rate 11/22/22 08:20 Nasal Cannula, High Flow Nasal Cannula 7 11/22/22 07:00 37 C 72 13 109/60 95 Nasal Cannula, High Flow Nasal Cannula 7 Laboratory Results Laboratory Tests 11/20/22 11/21/22 11/21/22 06:16 13:04 13:04 WBC 7.62 Hgb 8.9 L Hct 29.6 L Plt Count 152 Sodium 147 H Potassium 3.6 Chloride 107 Carbon Dioxide 31 BUN 60 H 60 H Creatinine 3.10 H 3.11 H Glucose 69 L PG Care Time/CCT Total # of Minutes Spent Total Time Spent with Patient: Total time spent is greater than 50% in coordination of care (as documented) at patient's floor/unit and/or counseling patient: Coding Level of Care Code 32765 SUB INP/OBS CARE 3/50MIN Diagnoses AMS (altered mental status) R41.82 Acute kidney injury superimposed on chronic kidney disease N17.9; N18.9 Acute exacerbation of congestive heart failure I50.9 Chronic kidney disease with active medical management without dialysis, stage 3 (moderate) N18.30
[2022-11-22] MEDS ORDERED: LANTUS PER UNIT CHARGE SC SCH (09:00)
[2022-11-22] MEDS: INSULIN ASPART PER UNIT CHARGE SC SCH (09:31)
[2022-11-22] MEDS: BUMETANIDE 1 MG TAB PO SCH (09:39)
[2022-11-22] MEDS: BENZONATATE 100 MG CAPSULE PO SCH (09:39)
[2022-11-22] MEDS: dilTIAZem HCL 240 MG CAPCR PO SCH (09:40)
[2022-11-22] MEDS: TIMOLOL MALEATE 0.5% OP SOLN 5 ML BTL OPR SCH (09:40)
[2022-11-22] MEDS ORDERED: LORazepam 2 MG/1 ML VIAL IV PRN (10:49)
[2022-11-22] MEDS ORDERED: GLYCOPYRROLATE 0.2 MG/ML VIAL IV PRN (10:49)
[2022-11-22] MEDS ORDERED: ONDANSETRON INJ 2 MG/ML 2 ML VIAL IV PRN (10:49)
--- NOTE | 2022-11-22 10:58 | Palliative Care Progress Note ---
Date of Service November 22, 2022 Assessment & Plan (1) Pain: Plan: She had been complaining of right hip and back pain. She has also had prolonged immobility. History of delirium with opioids in the past. I have discussed this with her . At this point, nonopioid interventions have not been sufficient to maintain her comfort. Would continue to avoid morphine with her renal failure. With no IV access, will use oxycodone oral concentrate as needed for pain and air hunger. Her would prefer not to try further IV access attempts. (2) AMS (altered mental status): Plan: With baseline dementia Multiple exacerbating factors including hypoxia, hospitalization and medications Will start routine dosing of olanzapine for symptom relief (3) Palliative care encounter: Plan: I spoke with Mr. Bernabe, Jayshree's brother and sister in law at bedside. Dr. Alicea was also present for first part of discussion. They are aware that her fluid balance and pulmonary edema will be very difficult to manage with renal failure, afib and valvular heart disease. Her brother tells me that she has discussed this with him and told him that she would not want to live like this. Her acknowledges that she is not able to do the things that bring enjoyment and meaning to her life. Jayshree, herself, told me on Saturday that she is just existing at this time. Family is all in agreement that she would want to "just be comfortable" at this point. We talked about focusing care on symptom management rather than disease management and using only medications that will contribute to her comfort at this time. We reviewed plan for use of zyprexa as well as oxycodone as needed for pain and air hunger. Jayshree had a visit from the [facility] yesterday and family is grateful for that. Discussed with RN, Dr. Alicea and Dr. Lawler. Admission and Anticipated Discharge Date Admission Date: November 15, 2022 Subjective Jayshree lethargic today. Does not respond to voice or touch. She had been agita nicolas yesterday. She had two doses of oxycodone and one of morphine in last 24 hours. She continues on high flow O2, currently via NE. Review of Systems Review of Systems: Unobtainable due to cognitive status and Unobtainable due to reduced consciousness Physical Exam Constitutional: no acute distress Respiratory: + uses accessory muscles Cardiovascular: Extremities: + edema Gastrointestinal (Abdomen): obese Neurologic: Speech / Cognition: + abnormal cognition Genitourinary: Aguilera catheter, tea colored urine Results & Data Vital Signs (Past 12 Hours) Vital Signs Temp Pulse Resp BP Pulse Ox O2 Del Method O2 Flow Rate 11/22/22 08:20 Nasal Cannula, High Flow Nasal Cannula 7 11/22/22 07:00 98.6 F 72 13 109/60 95 Nasal Cannula, High Flow Nasal Cannula 7 PG Care Time/CCT Total # of Minutes Spent Total Time Spent with Patient: Total time spent is greater than 50% in coordination of care (as documented) at patient's floor/unit and/or counseling patient: Coding Level of Care Code 97288 SUB INP/OBS CARE 3/50MIN Diagnoses Pain R52 AMS (altered mental status) R41.82 Palliative care encounter Z51.5
[2022-11-22] MEDS ORDERED: HYOSCYAMINE SULFATE 0.125 MG TAB PO PRN (11:47)
[2022-11-22] MEDS ORDERED: LORazepam 0.5 MG TAB SL PRN (11:47)
[2022-11-22] MEDS ORDERED: ONDANSETRON 4 MG OD TAB SL PRN (11:47)
[2022-11-22] MEDS ORDERED: oxyCODONE INTENSOL 20 MG/1 ML UDP PO PRN (12:00)
--- NOTE | 2022-11-22 16:05 | Communication Note ---
Date of Service: November 22, 2022 Called to bedside. at bedside and noticed that Jayshree was not breathing. No respirations or pulse auscultated. No palpable pulse. No withdraw from painful stimulus. Pupils fixed and dilated. Time of : 1600. Spoke with at bedside. He has support from family and is grateful for the care that she received.
[2022-11-22] MEDS ORDERED: OLANZapine ZYDIS 5 MG ORALLY DIS. TAB PO SCH (21:00)
--- NOTE | 2022-11-23 09:07 | Discharge Summary ---
Date of Service November 22, 2022 Admission HPI Per Admitting Provider Patient is a 77-year-old female with a past medical history of coronary artery disease, recurrent exacerbations of congestive heart failure, chronic kidney disease stage V, systemic anticoagulation secondary to CHF and atrial fibrillation, mitral valve regurgitation, diabetes, sleep apnea, peripheral neuropathy who [facility] to approximately 3 weeks ago for increasing lymphedema and care needs related to cardiorenal syndrome. She was sent from [facility] for evaluation of congestive heart failure as her diuretics have been increased and she continues to gain weight despite a fluid restricted diet. Patient is able to participate in the history however she defers mainly to the who is at bedside and acting as primary historian. Reports the major underlying issue is a leaky heart valve which needs repair however she would not survive such a surgery. This is prompting recurrent heart failure and she has chronic kidney disease. The last discussion with nephrology is they would consider possibly renal replacement therapy. At [facility] they placed a Aguilera to obtain accurate ins and outs, they also discontinued her Coumadin and aspirin secondary to reported hematuria. She denies chest pain, she is short of breath at baseline. She has oxygen on which she does not normally wear. She has been persistently uncomfortable for weeks secondary to lower extremity swelling and weeping wounds. She has to sit recumbent and has not been in a bed in several weeks to sleep. When directly asked about how the quality of life is been for the past couple of months and it was reported to be poor. They understand that the progression of the disease process and treatment was to transition to increased dose of diuretics and if this would did not achieve the desired result possibly consider renal replacement therapy otherwise palliative/hospice care would be the next treatment option. Principal Diagnosis pt at 1600 from Cardiorenal syndrome Discharge Exam Pt pronounced by Dr Hannah Parrish Discharge Data Allergies Allergy/AdvReac Type Severity Reaction Status Date / Time Sulfa (Sulfonamide Allergy Severe ANAPHYLAXIS Verified 11/08/22 13:42 Antibiotics) Consultations 11/15/22 13:41 ED Decision to Admit Stat 11/15/22 15:34 Consult Palliative Care Stat 11/15/22 15:47 Consult Nephrology Routine Hospital Course (1) Comfort measures only status: Patient transition to comfort care only status on the morning of 11/22/2022 pt was pronounced at 1600 from Cardiorenal syndrome (2) Cardiorenal syndrome: (3) Acute exacerbation of CHF (congestive heart failure): Acute on chronic diastolic or HFpEF, heart failure, causing acute respiratory failure with hypoxia Aortic stenosis s/p bioprosthetic AVR: Appropriately functioning bioprosthetic aortic valve on 06/29/22 - Hypertension/PAF - previously on 240 mg diltiazem every morning, 60 mg diltiazem at night-Metoprolol 25 mg extended release daily Anticoagulated with Coumadin, inr is up given vitamin K orally on 11/20/2022 INR on 11 21 is 3.8 - -complicated by SHARI requiring nightly BiPap Chronic kidney disease stage IV -Consult nephrology for discussion regarding renal replacement therapy versus palliation, patient and family do not want to go to renal replacement therapy : Hyperlipidemia Heme: Systemic anticoagulation with Coumadin for atrial fibrillation -Supra therapeutic INR despite reported not receiving additional doses Diabetes: Insulin-dependent -Continue Novolin NPH U100 18 units at bedtime, with sliding scale Hypothyroidism -Levothyroxine 175 mcg daily (4) Chronic kidney disease, stage 4 (severe): Total Time Total Time Spent Total Time Spent (In Minutes): more than 30 minutes were required Discharge Plan Discharge Items Patient Disposition: Discharge Diagnosis: cardiorenal syndrome Other Date/Time: 11/22/22 16:00 Coding Level of Care Code 39969 INP/OBS DISCH >30 MIN Diagnoses Comfort measures only status Z51.5 Cardiorenal syndrome I13.10 Acute exacerbation of CHF (congestive heart failure) I50.9 Chronic kidney disease, stage 4 (severe) N18.4
== END 2022-11-22 18:35 | disposition expired | DRG 291 ==
LOC: ED 11:44 → 2N 15:23 → SUATTDRO 15:23 → 2N 18:20 → 3W 11-19 18:32